=== PATIENT | female | born 1975 | race Caucasian/White ===

== ENCOUNTER 2018-05-21 12:36 | Observation (INO) | payer OTHER ==
--- NOTE | 2018-05-21 14:45 | PDOC ---
History of Present Illness - General Chief Complaint: CVA/TIA Stated Complaint: NUMBNESS WEAKNESS ON LEFT SIDE Time Seen by Provider: 05/21/18 13:14 History Source: Patient Exam Limitations: No Limitations - History of Present Illness Initial Comments: 05/21/18 14:44 42 yo female pmh of Hodgkin lymphoma (diagnosed 2008, no follow up with oncology for the past 3 years) PEs, UTIs, cervical spine herniated discs and anxiety presents to the ED for left sided numbness, weakness and dizziness that lasted less than 5 min yesterday. Patient states while sitting at her desk at work she had sudden onset of these symptoms and denies LOC, JAMES, changes in vision. Patient denies having these complaints today but does admit to mild headache. No CP, SOB or changes in bowel or bladder habits. Past History - Past Medical History Allergies/Adverse Reactions: Allergies Allergy/AdvReac Type Severity Reaction Status Date / Time No Known Allergies Allergy Verified 05/21/18 13:03 Home Medications: Ambulatory Orders NK [No Known Home Medication] 10/02/15 Anemia: No Asthma: No Cancer: Yes (LYMPHOMA STEM CELL TRANSPLANT 2010, radiation 2011) Cardiac Disorders: No CVA: No COPD: No CHF: No Dementia: No Diabetes: No GI Disorders: No Disorders: No HTN: No Hypercholesterolemia: No Kidney Stones: Yes Liver Disease: No Psychiatric Problems: Yes (ANXIETY.) Seizures: No Thyroid Disease: No - Surgical History Abdominal Surgery: Yes Appendectomy: Yes Cardiac Surgery: No Cholecystectomy: Yes Lung Surgery: No Neurologic Surgery: No Orthopedic Surgery: No - Suicide/Smoking/Psychosocial Hx Smoking Status: No Smoking History: Never smoked Have you smoked in the past 12 months: No Number of Cigarettes Smoked Daily: 0 If you are a former smoker, when did you quit?: NEW YEARS Information on smoking cessation initiated: No 'Breaking Loose' booklet given: 01/05/14 Hx Alcohol Use: No Drug/Substance Use Hx: No Substance Use Type: None Hx Substance Use Treatment: No Review of Systems - Review of Systems Constitutional: No: Chills, Fever HEENTM: No: Blurred Vision Respiratory: No: Shortness of Breath Cardiac (ROS): No: Chest Pain ABD/GI: Yes: Nausea. No: Vomiting : No: Burning, Dysuria Musculoskeletal: Yes: Muscle Weakness (left upper and lower ext) Neurological: Yes: Headache (mild), Numbness (left sided). No: Ataxia *Physical Exam - Vital Signs Last Vital Signs Temp Pulse Resp BP Pulse Ox 98.1 F 84 18 108/70 100 05/21/18 12:57 05/21/18 12:57 05/21/18 12:57 05/21/18 12:57 05/21/18 12:57 ED Treatment Course - LABORATORY CBC & Chemistry Diagram: 05/21/18 14:40 05/21/18 14:45 - ADDITIONAL ORDERS Additional order review: Laboratory Results 05/21/18 14:00 Urine HCG, Qual Negative *DC/Admit/Observation/Transfer Diagnosis at time of Disposition: TIA (transient ischemic attack) - Discharge Dispostion Condition at time of disposition: Good Decision to Admit order: Yes - Referrals - Patient Instructions - Post Discharge Activity
[2018-05-21 14:58] LABS: BASO % 0.8 % (0-2.0); EOS % 1.3 % (0-4.5); HEMOGLOBIN 13.8 GM/dL (10.7-15.3); LYMPH % 22.9 % (8-40); MCHC 33.5 g/dl (32.0-36.0); MEAN CELL VOLUME 92.4 fl (80-96); MEAN PLT VOLUME 7.2 fl (7.5-11.1); MONO % 7.7 % (3.8-10.2); NEUT % 67.3 % (42.8-82.8); PLATELET COUNT 236 K/MM3 (134-434); RBC 4.44 M/mm3 (3.60-5.2); WHITE BLOOD COUNT 6.8 K/mm3 (4.0-10.0)
[2018-05-21 15:10] LABS: PROTHROMBIN TIME (PATIENT) 11.3 SEC (9.7-13.0)
[2018-05-21 15:12] LABS: ACTIVATED PTT 29.4 SECONDS (25.2-36.5)
[2018-05-21 15:19] LABS: ALBUMIN 4.1 g/dl (3.4-5.0); ALK PHOS 100 U/L (45-117); ANION GAP 10 MMOL/L (8-16); BILIRUBIN,TOTAL 0.5 mg/dL (0.2-1.0); BLOOD UREA NITROGEN 10 mg/dL (7-18); CALCIUM 9.2 mg/dL (8.5-10.1); CHLORIDE 104 mmol/L (98-107); CO2 27 mmol/L (21-32); CREATININE 0.7 mg/dL (0.55-1.3); GLUCOSE,RANDOM 83 mg/dL (74-106); POTASSIUM 4.3 mmol/L (3.5-5.1); SGOT/AST 17 U/L (15-37); SGPT/ALT 21 U/L (13-61); SODIUM 141 mmol/L (136-145); TOT PROT 7.9 g/dl (6.4-8.2)
--- NOTE | 2018-05-21 15:26 | PDOC ---
Attending Attestation - Resident Resident Name: Terrance Bruner - ED Attending Attestation I have performed the following: I have examined & evaluated the patient, The case was reviewed & discussed with the resident, I agree w/resident's findings & plan, Exceptions are as noted - HPI HPI: 05/21/18 15:23 42 yo F with h/o lymphoma , s/p treatment with chemo few years ago,prior dvt/ pe here c/o left sided arm and leg tingling. started at work yesterday while sitting. felt nubmness, and nausea, then resolved. today feels improved. no cp no sob. no leg swelling. today feels sensation is less on left side. no f/c no urinary complaints. no headaches recently. - Physicial Exam PE: 05/21/18 15:25 awake alert lungs clear bilaterally heart rrr no mrg. abd soft nt nd. skin warm and dry. nuero alert oriented x 3. speech clear. CN II - XII intact. VF intact. strength 5/5 and symmetric all four ext. sensation decreased left arm to light touch when compared to right. finger to nose clear. articulation. 05/21/18 15:28 - Medical Decision Making 05/21/18 15:29 differential, cva, no neck pain to suggest cord lesion, electrolyte issues. no sob or cp to suggest cardiac cause. pln labs ekg ct head. 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 riaz campo. ct head results pending. Heart Score/ECG Review #1 General ECG Interpretation: Sinus Rhythm, Normal Rate (82), Normal Intervals, No acute ischemic changes Compared to previous ECG there are: Other (incomplete RBBB) NIH Stroke Scale - Initial Evaluation Level of consciousness: Alert Ask patient the month and their age: Answers both correctly Ask patient to open & close eyes; make fist and let go: Obeys both correctly Best gaze (horizontal eye movement): Normal Visual field testing: No visual field loss Facial paresis (Show teeth/raise eyebrows/close eyes tight): Normal symmetrical movement Motor Function: Left Arm: Normal Motor Function: Right Arm: Normal (extends arm 90 (or 45) degrees for 10 seconds without drift Motor Function: Left Leg: Normal (extends leg 30 degrees for 5 seconds without drift) Motor Function: Right Leg: Normal (extends leg 30 degrees for 5 seconds without drift) Limb Ataxia: No ataxia Sensory(Use pinprick test arms,legs,trunk,face/side to side): Mild to moderate decrease in sensation (left arm decreased sensation) Best language (Describe picture, name items, read sentences): No Aphasia Dysarthria (read several words): Normal articulation Extinction and Inattention: No abnormality - Total Score NIH Stroke Scale Score: 1
--- NOTE | 2018-05-21 17:11 | HP ---
CHIEF COMPLAINT: Left-sided numbness, weakness, dizziness HISTORY OF PRESENT ILLNESS: 42 year-old female with a PMH significant for Hodgkins lymphoma x 3 exacerbations since 2011, renal calculi, pulmonary emboli (off anticoagulation) , and anxiety. Patient reports she was sitting at her desk at work on 05/20 when she experienced an episode of left-sided numbness, weakness, and dizziness. It lasted for about 5 minutes and then resolved. The symptoms have not recurred. She denies LOC, changes in vision, speech, or gait. Patient waited until today to come to the ED. She reports a mild headache. ER course was notable for: (1) CT head: normal scan; no acute intracranial pathology (2) Vital signs stable Recent Travel: No PAST MEDICAL HISTORY: Hodgkins lymphoma s/p stem cell transplant (2011) Renal calculi Pulmonary emboli Anxiety PAST SURGICAL HISTORY: Bilateral breast reduction (2013) Appendectomy Cholecystectomy Social History: Smoking: former Alcohol: no Drugs: no Family History: Allergies No Known Allergies Allergy (Verified 05/21/18 13:03) HOME MEDICATIONS: Home Medications Medication Instructions Recorded NK [No Known Home Medication] 10/02/15 REVIEW OF SYSTEMS CONSTITUTIONAL: Absent: fever, chills, diaphoresis, generalized weakness, malaise, loss of appetite, weight change HEENT: Absent: rhinorrhea, nasal congestion, throat pain, throat swelling, difficulty swallowing, mouth swelling, ear pain, eye pain, visual changes CARDIOVASCULAR: Absent: chest pain, syncope, palpitations, irregular heart rate, lightheadedness , peripheral edema RESPIRATORY: Absent: cough, shortness of breath, dyspnea with exertion, orthopnea, wheezing, stridor, hemoptysis GASTROINTESTINAL: Absent: abdominal pain, abdominal distension, nausea, vomiting, diarrhea, constipation, melena, hematochezia GENITOURINARY: Absent: dysuria, frequency, urgency, hesitancy, hematuria, flank pain, genital pain MUSCULOSKELETAL: Absent: myalgia, arthralgia, joint swelling, back pain, neck pain SKIN: Absent: rash, itching, pallor HEMATOLOGIC/IMMUNOLOGIC: Absent: easy bleeding, easy bruising, lymphadenopathy, frequent infections ENDOCRINE: Absent: unexplained weight gain, unexplained weight loss, heat intolerance, cold intolerance NEUROLOGIC: +left-sided numbness, weakness, and dizziness Absent: headache, focal weakness or paresthesias, dizziness, unsteady gait, seizure, mental status changes, bladder or bowel incontinence PSYCHIATRIC: Absent: anxiety, depression, suicidal or homicidal ideation, hallucinations. PHYSICAL EXAMINATION Vital Signs - 24 hr 05/21/18 12:57 Temperature 98.1 F Pulse Rate 84 Respiratory 18 Rate Blood Pressure 108/70 O2 Sat by Pulse 100 Oximetry (%) GENERAL: Awake, alert, and fully oriented, in no acute distress. HEAD: Normal with no signs of trauma. EYES: Pupils equal, round and reactive to light, extraocular movements intact, sclera anicteric, conjunctiva clear. No lid lag. EARS, NOSE, THROAT: Ears normal, nares patent, oropharynx clear without exudates. Moist mucous membranes. NECK: Normal range of motion, supple without lymphadenopathy, JVD, or masses. LUNGS: Breath sounds equal, clear to auscultation bilaterally. No wheezes, and no crackles. No accessory muscle use. HEART: Regular rate and rhythm, normal S1 and S2 without murmur, rub or gallop. ABDOMEN: Soft, nontender, not distended, normoactive bowel sounds, no guarding, no rebound, no masses. No hepatomegaly or splenomegaly. MUSCULOSKELETAL: Normal range of motion at all joints. No bony deformities or tenderness. No CVA tenderness. UPPER EXTREMITIES: 2+ pulses, warm, well-perfused. No cyanosis. No clubbing. No peripheral edema. LOWER EXTREMITIES: 2+ pulses, warm, well-perfused. No calf tenderness. No peripheral edema. NEUROLOGICAL: Cranial nerves II-XII intact. Normal speech. Normal gait. PSYCHIATRIC: Cooperative. Good eye contact. Appropriate mood and affect. SKIN: Warm, dry, normal turgor, no rashes or lesions noted, normal capillary refill. Laboratory Results - last 24 hr 05/21/18 05/21/18 05/21/18 13:35 14:00 14:40 WBC 6.8 RBC 4.44 Hgb 13.8 Hct 41.0 MCV 92.4 MCH 31.0 MCHC 33.5 RDW 14.0 Plt Count 236 MPV 7.2 L Absolute Neuts (auto) 4.6 Neutrophils % 67.3 Lymphocytes % 22.9 Monocytes % 7.7 Eosinophils % 1.3 Basophils % 0.8 Nucleated RBC % 0 PT with INR 11.30 INR 1.00 PTT (Actin FS) 29.4 Sodium Potassium Chloride Carbon Dioxide Anion Gap BUN Creatinine Creat Clearance w eGFR Random Glucose Calcium Total Bilirubin AST ALT Alkaline Phosphatase Total Protein Albumin Urine HCG, Qual Negative 05/21/18 14:45 WBC RBC Hgb Hct MCV MCH MCHC RDW Plt Count MPV Absolute Neuts (auto) Neutrophils % Lymphocytes % Monocytes % Eosinophils % Basophils % Nucleated RBC % PT with INR INR PTT (Actin FS) Sodium 141 Potassium 4.3 Chloride 104 Carbon Dioxide 27 Anion Gap 10 BUN 10 Creatinine 0.7 Creat Clearance w eGFR > 60 Random Glucose 83 Calcium 9.2 Total Bilirubin 0.5 AST 17 ALT 21 Alkaline Phosphatase 100 Total Protein 7.9 Albumin 4.1 Urine HCG, Qual ASSESSMENT/PLAN 42 year-old female with a PMH significant for Hodgkins lymphoma, renal calculi, pulmonary emboli (off anticoagulation), and anxiety. Placed on observation for TIA v. CVA. Left-sided weakness, numbness --CT head: no acute intracranial pathology --MRI brain pending --Echo, US carotids ordered --serial ECGs --serial troponins --telemetry monitoring Hodgkins lymphoma --stable, no acute issues Renal calculi --stable h/o Pulmonary emboli --was on anticoagulation for one year Anxiety FEN Fluids: PO intake adequate Electrolytes: replete as indicated Nutrition: regular diet once passes stroke dysphagia screening DVT prophylaxis: lovenox Dispo: continues to require observation. Visit type - Emergency Visit Emergency Visit: Yes ED Registration Date: 05/21/18 Care time: The patient presented to the Emergency Department on the above date and was hospitalized for further evaluation of their emergent condition. - New Patient This patient is new to me today: Yes Date on this admission: 05/23/18 - Critical Care Critical Care patient: No Hospitalist Screening - Colonoscopy Questionnaire Colonoscopy Questionnaire: Colonoscopy Questionnaire - Patient: 50 - 75 years old and never had a screening colonoscopy: No History of colon or rectal polyps, or CA: No History of IBD, Crohn's disease or UC: No History of abdominal radiation therapy as a child: No - Relative: 1 with colon or rectal CA, or polyps at age 60 or younger: Unknown Colon or rectal CA diagnosed at age 45 or younger: Unknown Multiple relatives with colon or rectal CA: Unknown - Outcome: Screening Result: Negative Screen
[2018-05-21] MEDS ORDERED: SODIUM CHLORIDE 1,000 ML IV SCH (17:30)
[2018-05-21] MEDS ORDERED: ASPIRIN 325 MG TABLET PO ONE (17:30)
[2018-05-21] MEDS ORDERED: ATORVASTATIN CA 40 MG TABLET (FP) PO ONE (17:30)
[2018-05-21] MEDS ORDERED: diazePAM CARPU-JECT 10 MG/2 ML DISP.SYRIN IVPUSH ONE (20:25)
[2018-05-21] MEDS ORDERED: ASPIRIN 325 MG ENTERIC COATED TABLET (FP) ONE (20:43)
[2018-05-21] MEDS ORDERED: ATORVASTATIN CA 40 MG TABLET (FP) ONE (20:43)
[2018-05-21] MEDS ORDERED: diazePAM 5 MG TABLET PO ONE (20:59)
[2018-05-21] MEDS ORDERED: diazePAM 5 MG TABLET ONE (21:06)
[2018-05-21 22:41] LABS: URINE APPEARANCE CLOUDY; URINE BILIRUBIN NEGATIVE (<2.0 mg/dL); URINE COLOR LTYELLOW; URINE GLUCOSE (UA) NEGATIVE (NEGATIVE); URINE KETONE NEGATIVE (NEGATIVE); URINE LEUK ESTERASE NEGATIVE (NEGATIVE); URINE NITRITE NEGATIVE (NEGATIVE); URINE PROTEIN NEGATIVE (NEGATIVE); URINE UROBILINOGEN NEGATIVE mg/dL (0.2-1.0)
[2018-05-22 01:33] VITALS: BMI 39.3
[2018-05-22 05:40] VITALS: PULSE 89
[2018-05-22 07:22] LABS: BASO % 0.9 % (0-2.0); EOS % 2.1 % (0-4.5); HEMOGLOBIN 12.4 GM/dL (10.7-15.3); LYMPH % 22.2 % (8-40); MCH 30.8 pg (25.7-33.7); MCHC 33.4 g/dl (32.0-36.0); MEAN CELL VOLUME 92.1 fl (80-96); MEAN PLT VOLUME 7.2 fl (7.5-11.1); MONO % 8.5 % (3.8-10.2); NEUT % 66.3 % (42.8-82.8); PLATELET COUNT 204 K/MM3 (134-434); RBC 4.02 M/mm3 (3.60-5.2); RDW 13.8 % (11.6-15.6); WHITE BLOOD COUNT 5.9 K/mm3 (4.0-10.0)
[2018-05-22 08:00] LABS: CALCIUM 8.4 mg/dL (8.5-10.1); CHLORIDE 107 mmol/L (98-107); SODIUM 140 mmol/L (136-145)
[2018-05-22 08:05] LABS: ALBUMIN 3.5 g/dl (3.4-5.0); ALK PHOS 93 U/L (45-117); ANION GAP 8 MMOL/L (8-16); BILIRUBIN,TOTAL 0.3 mg/dL (0.2-1.0); BLOOD UREA NITROGEN 10 mg/dL (7-18); CHOLESTEROL 152 mg/dL (50-200); CO2 25 mmol/L (21-32); CREATININE 0.7 mg/dL (0.55-1.3); GLUCOSE,RANDOM 96 mg/dL (74-106); HDL CHOLESTEROL 82 mg/dL (40-60); SGOT/AST 18 U/L (15-37); SGPT/ALT 17 U/L (13-61); TOT PROT 6.9 g/dl (6.4-8.2); TRIGLYCERIDES 95 mg/dL (0-150)
[2018-05-22] MEDS ORDERED: ASPIRIN COATED 81 MG TABLET.EC PO SCH (10:00)
--- NOTE | 2018-05-22 10:16 | DS ---
Physical Exam: SUBJECTIVE: Patient seen and examined at bedside. No further episodes of numbness or dizziness. OBJECTIVE: Vital Signs Period Temp Pulse Resp BP Sys/Rivera Pulse Ox Last 24 Hr 98.1 F-98.2 F 84-93 18-18 94-114/58-71 98-100 PHYSICAL EXAM GENERAL: The patient is awake, alert, and fully oriented, in no acute distress. LUNGS: Breath sounds equal, clear to auscultation bilaterally, no wheezes, no crackles, no accessory muscle use. HEART: Regular rate and rhythm, S1, S2 without murmur, rub or gallop. ABDOMEN: Soft, nontender, nondistended EXTREMITIES: 2+ pulses, warm, well-perfused, no edema. NEUROLOGICAL: Cranial nerves II through XII grossly intact. Normal speech, moves all extremities freely. LABS Laboratory Results - last 24 hr 05/21/18 05/21/18 05/21/18 13:35 14:00 14:40 WBC 6.8 RBC 4.44 Hgb 13.8 Hct 41.0 MCV 92.4 MCH 31.0 MCHC 33.5 RDW 14.0 Plt Count 236 MPV 7.2 L Absolute Neuts (auto) 4.6 Neutrophils % 67.3 Lymphocytes % 22.9 Monocytes % 7.7 Eosinophils % 1.3 Basophils % 0.8 Nucleated RBC % 0 PT with INR 11.30 INR 1.00 PTT (Actin FS) 29.4 Sodium Potassium Chloride Carbon Dioxide Anion Gap BUN Creatinine Creat Clearance w eGFR Random Glucose Calcium Total Bilirubin AST ALT Alkaline Phosphatase Troponin I Total Protein Albumin Triglycerides Cholesterol Total LDL Cholesterol HDL Cholesterol Urine Color Urine Appearance Urine pH Ur Specific [place] Urine Protein Urine Glucose (UA) Urine Ketones Urine Blood Urine Nitrite Urine Bilirubin Urine Urobilinogen Ur Leukocyte Esterase Urine HCG, Qual Negative 05/21/18 05/21/18 05/21/18 14:45 20:00 22:35 WBC RBC Hgb Hct MCV MCH MCHC RDW Plt Count MPV Absolute Neuts (auto) Neutrophils % Lymphocytes % Monocytes % Eosinophils % Basophils % Nucleated RBC % PT with INR INR PTT (Actin FS) Sodium 141 Potassium 4.3 Chloride 104 Carbon Dioxide 27 Anion Gap 10 BUN 10 Creatinine 0.7 Creat Clearance w eGFR > 60 Random Glucose 83 Calcium 9.2 Total Bilirubin 0.5 AST 17 ALT 21 Alkaline Phosphatase 100 Troponin I < 0.02 Total Protein 7.9 Albumin 4.1 Triglycerides Cholesterol Total LDL Cholesterol HDL Cholesterol Urine Color Ltyellow Urine Appearance Cloudy Urine pH 8.0 D Ur Specific [place] 1.015 Urine Protein Negative Urine Glucose (UA) Negative Urine Ketones Negative Urine Blood Negative Urine Nitrite Negative Urine Bilirubin Negative Urine Urobilinogen Negative Ur Leukocyte Esterase Negative Urine HCG, Qual 05/22/18 05/22/18 05/22/18 02:07 06:00 06:00 WBC 5.9 RBC 4.02 Hgb 12.4 Hct 37.0 MCV 92.1 MCH 30.8 MCHC 33.4 RDW 13.8 Plt Count 204 MPV 7.2 L Absolute Neuts (auto) 3.9 Neutrophils % 66.3 Lymphocytes % 22.2 Monocytes % 8.5 Eosinophils % 2.1 Basophils % 0.9 Nucleated RBC % 0 PT with INR INR PTT (Actin FS) Sodium 140 Potassium 4.0 Chloride 107 Carbon Dioxide 25 Anion Gap 8 BUN 10 Creatinine 0.7 Creat Clearance w eGFR > 60 Random Glucose 96 Calcium 8.4 L Total Bilirubin 0.3 AST 18 ALT 17 Alkaline Phosphatase 93 Troponin I < 0.02 Total Protein 6.9 Albumin 3.5 Triglycerides 95 Cholesterol 152 Total LDL Cholesterol 61 HDL Cholesterol 82 H Urine Color Urine Appearance Urine pH Ur Specific [place] Urine Protein Urine Glucose (UA) Urine Ketones Urine Blood Urine Nitrite Urine Bilirubin Urine Urobilinogen Ur Leukocyte Esterase Urine HCG, Qual HOSPITAL COURSE: Date of Admission:05/21/18 Date of Discharge: 05/22/18 Pre hospital course 42 year-old female with a PMH significant for Hodgkins lymphoma x 3 exacerbations since 2011, renal calculi, pulmonary emboli (off anticoagulation) , and anxiety. Patient reports she was sitting at her desk at work on 05/20 when she experienced an episode of left-sided numbness, weakness, and dizziness. It lasted for about 5 minutes and then resolved. The symptoms have not recurred. She denies LOC, changes in vision, speech, or gait. Patient waited until today to come to the ED. She reports a mild headache. ER course was notable for: (1) CT head: normal scan; no acute intracranial pathology (2) Vital signs stable Subsequent hospital course 42 year-old female with a PMH significant for Hodgkins lymphoma, renal calculi, pulmonary emboli (off anticoagulation), and anxiety. Placed on observation for TIA v. CVA. Left-sided weakness, numbness, resolved --CT head: no acute intracranial pathology --MRI brain: negative study --US carotids: unremarkable --serial ECGs: no signs of ischemia --serial troponins negative --telemetry monitoring no events --seen and evaluated by neuro: underlying anxiety may have been precipitant for symptoms Hodgkins lymphoma --stable, no acute issues Renal calculi --stable h/o Pulmonary emboli --was on anticoagulation for one year Minutes to complete discharge: 35 Discharge Summary Reason For Visit: TIA Current Active Problems TIA (transient ischemic attack) (Acute) Condition: Improved - Instructions Diet, Activity, Other Instructions: It is recommended you follow up with your primary care provider at [address] [place] [address]. If you would like to have the sebaceous cysts on your scalp evaluated, please call the office of surgeon Dr. Matt Salcedo. His contact information is enclosed. Return to the emergency department for any new or worsening symptoms. Referrals: Matt Salcedo MD [Staff Physician] - 2 Weeks Disposition: HOME - Home Medications Comprehensive Discharge Medication List: Ambulatory Orders NK [No Known Home Medication] 10/02/15 This patient is new to me today: No Emergency Visit: Yes ED Registration Date: 05/21/18 Care time: The patient presented to the Emergency Department on the above date and was hospitalized for further evaluation of their emergent condition. Critical Care patient: No - Discharge Referral Referred to [facility] Med [facility] No
[2018-05-22 10:42] VITALS: BP 111/75; TEMP 98.1
--- NOTE | 2018-05-22 11:38 | CONSULT ---
Consult - text type - Consultation Consultation Note: Neurology CHIEF COMPLAINT: Left-sided numbness, weakness, dizziness HISTORY OF PRESENT ILLNESS: 42 year-old female with a PMH significant for Hodgkins lymphoma s/p stem cell transplant (2011), renal calculi, pulmonary emboli (not on anticoagulation), and anxiety. Patient reported she was sitting at her desk at work on day prior to admission, 05/20, when she experienced an episode of left-sided numbness, weakness, and dizziness. It lasted for about 5 minutes. The symptoms did not recurred. She denied LOC, changes in vision, speech, or gait. Patient reported a mild headache which she is no longer experiencing. CT head was normal with no acute intracranial pathology. Recent Travel: No PAST MEDICAL HISTORY: Hodgkins lymphoma s/p stem cell transplant (2011) Renal calculi Pulmonary emboli Anxiety PAST SURGICAL HISTORY: Bilateral breast reduction (2013) Appendectomy Cholecystectomy Social History: Smoking: former Alcohol: no Drugs: no Family History: Allergies No Known Allergies Allergy (Verified 05/21/18 13:03) HOME MEDICATIONS: Home Medications Medication Instructions Recorded NK [No Known Home Medication] 10/02/15 REVIEW OF SYSTEMS CONSTITUTIONAL: Absent: fever, chills, diaphoresis, generalized weakness, malaise, loss of appetite, weight change HEENT: Absent: rhinorrhea, nasal congestion, throat pain, throat swelling, difficulty swallowing, mouth swelling, ear pain, eye pain, visual changes CARDIOVASCULAR: Absent: chest pain, syncope, palpitations, irregular heart rate, lightheadedness , peripheral edema RESPIRATORY: Absent: cough, shortness of breath, dyspnea with exertion, orthopnea, wheezing, stridor, hemoptysis GASTROINTESTINAL: Absent: abdominal pain, abdominal distension, nausea, vomiting, diarrhea, constipation, melena, hematochezia GENITOURINARY: Absent: dysuria, frequency, urgency, hesitancy, hematuria, flank pain, genital pain MUSCULOSKELETAL: Absent: myalgia, arthralgia, joint swelling, back pain, neck pain SKIN: Absent: rash, itching, pallor HEMATOLOGIC/IMMUNOLOGIC: Absent: easy bleeding, easy bruising, lymphadenopathy, frequent infections ENDOCRINE: Absent: unexplained weight gain, unexplained weight loss, heat intolerance, cold intolerance NEUROLOGIC: +left-sided numbness, weakness, and dizziness Absent: headache, focal weakness or paresthesias, dizziness, unsteady gait, seizure, mental status changes, bladder or bowel incontinence PSYCHIATRIC: Absent: anxiety, depression, suicidal or homicidal ideation, hallucinations. PHYSICAL EXAMINATION Vital Signs Period Temp Pulse Resp BP Sys/Rivera Pulse Ox Last 24 Hr 98.1 F-98.2 F 84-93 18-18 94-114/58-75 98-100 GENERAL: Awake, alert, and fully oriented, in no acute distress. HEAD: Normal with no signs of trauma. EYES: Pupils equal, round and reactive to light, extraocular movements intact, sclera anicteric, conjunctiva clear. No lid lag. EARS, NOSE, THROAT: Ears normal, nares patent, oropharynx clear without exudates. Moist mucous membranes. NECK: Normal range of motion, supple without lymphadenopathy, JVD, or masses. LUNGS: Breath sounds equal, clear to auscultation bilaterally. No wheezes, and no crackles. No accessory muscle use. HEART: Regular rate and rhythm, normal S1 and S2 without murmur, rub or gallop. ABDOMEN: Soft, nontender, not distended, normoactive bowel sounds, no guarding, no rebound, no masses. No hepatomegaly or splenomegaly. MUSCULOSKELETAL: Normal range of motion at all joints. No bony deformities or tenderness. No CVA tenderness. UPPER EXTREMITIES: 2+ pulses, warm, well-perfused. No cyanosis. No clubbing. No peripheral edema. LOWER EXTREMITIES: 2+ pulses, warm, well-perfused. No calf tenderness. No peripheral edema. NEUROLOGICAL: Cranial nerves II-XII intact. Strength intact bilaterally, sensory intact to LT, normal coordination, finger to nose intact PSYCHIATRIC: Cooperative. Good eye contact. Appropriate mood and affect. SKIN: Warm, dry, normal turgor, no rashes or lesions noted, normal capillary refill. LABS: 05/21/18 05/21/18 05/21/18 13:35 14:40 14:45 WBC 6.8 RBC 4.44 Hgb 13.8 Hct 41.0 MCV 92.4 MCHC 33.5 RDW 14.0 Plt Count 236 Neutrophils % 67.3 Lymphocytes % 22.9 Monocytes % 7.7 Eosinophils % 1.3 Basophils % 0.8 INR 1.00 Sodium 141 Potassium 4.3 Chloride 104 Carbon Dioxide 27 Anion Gap 10 BUN 10 Creatinine 0.7 05/22/18 05/22/18 06:00 06:00 WBC 5.9 RBC 4.02 Hgb 12.4 Hct 37.0 MCV 92.1 MCHC 33.4 RDW 13.8 Plt Count 204 Neutrophils % 66.3 Lymphocytes % 22.2 Monocytes % 8.5 Eosinophils % 2.1 Basophils % 0.9 INR Sodium 140 Potassium 4.0 Chloride 107 Carbon Dioxide 25 Anion Gap 8 BUN 10 Creatinine 0.7 Imaging: CT head reviewed Carotid Doppler reviewed MRI brain completed, reviewed, awaiting report ASSESSMENT/PLAN 42 year-old female with a PMH significant for Hodgkins lymphoma s/p stem cell transplant (2011), renal calculi, pulmonary emboli (not on anticoagulation), and anxiety. Patient reported she was sitting at her desk at work on day prior to admission, 05/20, when she experienced an episode of left-sided numbness, weakness, and dizziness. It lasted for about 5 minutes. The symptoms did not recurred. She denied LOC, changes in vision, speech, or gait. Patient reported a mild headache which she is no longer experiencing. CT head was normal with no acute intracranial pathology. Carotid Doppler without HD significant stenosis. MRI brain completed, reviewed, awaiting official report. Asymptomatic, if imaging negative, can have outpatient followup. Does have underlying anxiety which may be precipitant for her symptoms. Relaxation recommended.
[2018-05-22] MEDS ORDERED: ATORVASTATIN CA 40 MG TABLET (FP) PO SCH (22:00)
--- NOTE | 2018-05-23 21:58 | EKG ---
Test Reason : Blood Pressure : / mmHG Vent. Rate : 082 BPM Atrial Rate : 082 BPM P-R Int : 136 ms QRS Dur : 102 ms QT Int : 390 ms P-R-T Axes : 049 001 038 degrees QTc Int : 455 ms NORMAL SINUS RHYTHM POSSIBLE LEFT ATRIAL ENLARGEMENT INCOMPLETE RIGHT BUNDLE BRANCH BLOCK BORDERLINE ECG WHEN COMPARED WITH ECG OF 02-OCT-2015 11:15, INCOMPLETE RIGHT BUNDLE BRANCH BLOCK IS NOW PRESENT Confirmed by MORRIS FITCH MD ([id number]) on 05/23/2018 9:57:24 PM Referred By: Confirmed By:MORRIS FITCH MD
== END 2018-05-22 14:20 | disposition home or self-care (01) ==
LOC: JER 12:36 → JERBED 16:12 → J4S 05-22 00:40
PROVIDERS: ADMIT Internal Medicine; ATTEND Nurse Practitioner Acute Care
DX: G45.9 Transient cerebral ischemic attack, unspecified (principal); C81.90 Hodgkin lymphoma, unspecified, unspecified site; F41.9 Anxiety disorder, unspecified; M50.20 Other cervical disc displacement, unspecified cervical region; Z87.442 Personal history of urinary calculi; Z86.711 Personal history of pulmonary embolism
CPT/HCPCS: 36415; 70450-TC; 70551-TC; 80053; 80061; 81003; 83721; 84484; 84703; 85025; 85610; 85730; 93005; 93010; 93880-TC; 99284-25; G0378

== ENCOUNTER 2019-12-19 12:47 | Inpatient (IN) | payer OTHER ==
--- NOTE | 2019-12-19 13:06 | PDOC ---
History of Present Illness - History of Present Illness Initial Comments: HPI: 12/19/19 13:41 44 yo F PMH Hodgkins' lymphoma X3 s/p radiation and stem cell transplant in 2012, not on active treatment, appendectomy, cholecystectomy, anxiety, presenting with SOB. States that she has felt ill for the past 10 days with myalgias and malaise, but over the past 5 days, she has had progressively wo rsening SOB and SONG, associated with cough, loss of appetite, and fevers/chills. 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 Sister is a known COVID positive. Initially satting 68% on RA, now up to 97% on 15L NRB with proning. Denies CP, abd pain, N/V, urinary changes, constipation/diarrhea. ROS: GENERAL/CONSTITUTIONAL: denies fever, chills, diaphoresis, generalized weakness, malaise, loss of appetite, weight change HEAD, EYES, EARS, NOSE AND THROAT: denies rhinorrhea, nasal congestion, throat pain, throat swelling, difficulty swallowing, mouth swelling, ear pain, eye pain, visual changes NEUROLOGIC: denies headache, focal weakness or paresthesias, dizziness, unsteady gait, seizure, mental status changes, bladder or bowel incontinence CARDIOVASCULAR: denies chest pain, syncope, palpitations, irregular heart rate, lightheadedness, peripheral edema RESPIRATORY: denies cough, shortness of breath, dyspnea with exertion, orthopnea, wheezing, stridor, hemoptysis GASTROINTESTINAL: denies abdominal pain, abdominal distension, nausea, vomiting, diarrhea, constipation, melena, hematochezia GENITOURINARY: denies dysuria, frequency, urgency, hesitancy, hematuria, flank pain, genital pain MUSCULOSKELETAL: denies myalgia, arthralgia, joint swelling, back pain, neck pain SKIN: denies rash, itching, pallor HEMATOLOGIC/IMMUNOLOGIC: denies easy bleeding, easy bruising, lymphadenopathy, frequent infections ENDOCRINE: denies unexplained weight gain, unexplained weight loss, heat intolerance, cold intolerance PSYCHIATRIC: denies anxiety, depression, suicidal or homicidal ideation, hallucinations PE: Gen: well-developed, well-nourished, appears in distress Neuro: AAOX4, CN II-XII grossly intact HEENT: atraumatic, normocephalic, dry mucous membranes Neck: trachea midline, supple CV: regular rate, regular rhythm, no murmurs, rubs, or gallops Pulm: tachypneic to 40 breaths per minute, poor inspiratory effort, otherwise CTA b/l, no wheezing Abd: soft, non-distended, non-tender MSK: full ROM, intact pulses Extr: no edema, no deformities Skin: hot, dry MDM: 12/19/19 13:50 Concern for COVID-19 v PNA v potential cancer resurgence. Patient febrile to 102F orally. - COVID order set - CBC, CMP - EKG, CXR - cardiac profile - PT/PTT - UA/UC - 500 cc NS bolus - Ofirmev - admit 12/19/19 14:23 Lactic acid 2.2, pH 7.44, LFT elevation, LDH 725. CXR with bilateral patchy infiltrates concerning for COVID-19. 12/19/19 14:41 POCUS of heart shows good squeeze, appears to be fluid down. Patient with increased work of breathing, RR occasionally in the 60s. Will get high flow O2. Patient also has worsening blood pressure with MAPs around 63, will give another 500 cc bolus. Consider central line. EKG with sinus tachycardia t 126 bpm, LVH, ND 120, QRS 88, QTc 457. Will admit for suspected COVID-19, hypoxia. 12/19/19 17:30 With soft BPs, central line placed for potential pressor support. Risks and benefits explained to the patient, and she provided oral consent. RIJ extremely collapsible, so ultimately placed in LIJ. X ray confirms good placement of the central line. 12/19/19 18:48 Patient seen to have continually decreasing MAPs to 58, so Levophed drip started. Patient admitted to ICU. Please note, this patient was evaluated during the COVID-19 crisis with the presidential Reyes Act Declaration and the [place] governor executive order number 202. Clinical decisions were made relative to healthcare system resources as well as clinical picture during a pandemic crisis situation. <Rustam Ocasio - Last Filed: 12/21/19 20:14> <Jessica Reno - Last Filed: 12/24/19 14:33> - General Stated Complaint: SOB/COUGH Time Seen by Provider: 12/19/19 12:51 Past History - Past Medical History Anemia: No Asthma: No Cancer: Yes (LYMPHOMA STEM CELL TRANSPLANT 2010, radiation 2011) Cardiac Disorders: No CVA: No COPD: No CHF: No Dementia: No Diabetes: No GI Disorders: No Disorders: No HTN: No Hypercholesterolemia: No Kidney Stones: Yes Liver Disease: No Psychiatric Problems: Yes (ANXIETY.) Seizures: No Thyroid Disease: No - Surgical History Abdominal Surgery: Yes Appendectomy: Yes Cardiac Surgery: No Cholecystectomy: Yes Lung Surgery: No Neurologic Surgery: No Orthopedic Surgery: No - Psycho Social/Smoking Cessation Hx Smoking Status: No Smoking History: Never smoked Have you smoked in the past 12 months: No Number of Cigarettes Smoked Daily: 0 If you are a former smoker, when did you quit?: NEW YEARS Cigars Per Day: 0 'Breaking Loose' booklet given: 01/05/14 Hx Alcohol Use: No Drug/Substance Use Hx: No Substance Use Type: None Hx Substance Use Treatment: No <Rustam Ocasio - Last Filed: 12/21/19 20:14> <Jessica Reno - Last Filed: 12/24/19 14:33> - Past Medical History Allergies/Adverse Reactions: Allergies Allergy/AdvReac Type Severity Reaction Status Date / Time No Known Allergies Allergy Verified 05/21/18 13:03 Home Medications: Ambulatory Orders NK [No Known Home Medication] 10/02/15 *Physical Exam - Vital Signs Last Vital Signs Temp Pulse Resp BP Pulse Ox 97.7 F 109 H 40 H 141/97 90 L 12/24/19 10:00 12/24/19 12:00 12/24/19 12:00 12/24/19 12:00 12/24/19 12:42 <Jessica Reno - Last Filed: 12/24/19 14:33> Procedures - Central Line Central Line Lumen: triple Central Line Position: internal jugular (L) Anesthesia: 1% Lidocaine Amount of anesthesia (ccs): 5 Post Central Line Insertion: sutured, good blood return, position confirmed w/ CXR Progress: 12/19/19 17:30 Pressures began decreasing with MAPs in the low 60s, so central line place. RIJ seen to be flat and collapsible, so LIJ triple lumen ultimately placed. Good flow in all lumens, and position will be confirmed with X ray. <Rustam Ocasio - Last Filed: 12/21/19 20:14> ED Treatment Course - LABORATORY CBC & Chemistry Diagram: 12/21/19 06:36 12/21/19 06:36 <Rustam Ocasio - Last Filed: 12/21/19 20:14> - LABORATORY CBC & Chemistry Diagram: 12/24/19 05:30 12/24/19 05:30 - ADDITIONAL ORDERS Additional order review: 12/19/19 13:13 RBC 4.06 MCV 88.8 MCHC 33.7 RDW 14.0 MPV 7.1 L Neutrophils % 87.2 H D Lymphocytes % 5.4 L D Monocytes % 7.2 Eosinophils % 0.1 D Basophils % 0.1 - Medications Given in the ED: ED Medications Discontinued Medications Generic Name Dose Route Start Last Admin Trade Name Jesse PRN Reason Stop Dose Admin Acetaminophen 1,000 mg 12/19/19 13:07 12/19/19 13:35 Ofirmev Injection - IVPB 12/19/19 13:08 1,000 mg ONCE ONE Administration Acetaminophen 975 mg 12/20/19 01:40 12/20/19 01:42 Tylenol Oral Solution - PO 12/20/19 01:41 975 mg ONCE STA Administration Alprazolam 0.25 mg 12/22/19 15:00 12/23/19 19:55 Xanax - PO 12/22/19 15:01 Not Given ONCE ONE Hydroxychloroquine Sulfate 400 mg 12/19/19 17:30 12/19/19 18:00 Plaquenil - PO 12/19/19 17:31 400 mg ONCE ONE Administration Hydroxychloroquine Sulfate 400 mg 12/19/19 18:00 12/20/19 19:26 Plaquenil - PO 12/19/19 18:01 Not Given BID@0600,1800 DARIEL Sodium Chloride 500 mls @ 500 mls/hr 12/19/19 13:47 12/19/19 14:16 Normal Saline - IV 12/19/19 14:46 Not Given ASDIR STA Doxycycline Hyclate 100 mg/ 100 mls @ 100 mls/hr 12/19/19 14:45 12/19/19 15:50 Dextrose IVPB 12/19/19 15:44 100 mls/hr ONCE ONE Administration Sodium Chloride 1,000 mls @ 100 mls/hr 12/19/19 17:15 04/13/20 17:52 Normal Saline - IV 100 mls/hr ASDIR DARIEL Administration Sodium Chloride 1,000 mls @ 42 mls/hr 12/19/19 18:37 12/19/19 18:58 Normal Saline - IV 42 mls/hr ASDIR DARIEL Administration Norepinephrine Bitartrate 16, 500 mls @ 9.375 mls/hr 12/19/19 19:00 12/21/19 02:00 000 mcg/ Sodium Chloride IV 0 mcg/min TITR DARIEL 0 mls/hr Titration Protocol 5 MCG/MIN Vancomycin HCl 1,000 mg/ 250 mls @ 166.667 mls/hr 12/20/19 15:00 12/22/19 03:07 Dextrose IVPB 166.667 mls/hr Q12H DARIEL Administration Protocol Methylprednisolone Sodium Succinate 125 mg 12/21/19 13:02 12/21/19 14:42 Solu-Medrol - IVPUSH 12/21/19 13:03 125 mg ONCE ONE Administration Morphine Sulfate 1 mg 12/20/19 12:39 12/21/19 00:26 Morphine Injection - IM 1 mg Q6H PRN Administration PAIN LEVEL 1-5 Potassium Chloride 40 meq 12/21/19 13:41 12/21/19 14:43 K-Dur - PO 12/21/19 13:42 40 meq ONCE ONE Administration Potassium Chloride 40 meq 12/22/19 08:30 12/23/19 19:54 K-Dur - PO 12/22/19 08:31 Not Given ONCE ONE Sodium Chloride 500 ml 12/19/19 14:14 12/19/19 14:15 Normal Saline - IV 12/19/19 14:15 500 ml ONCE ONE Administration <Jessica Reno - Last Filed: 12/24/19 14:33> Discharge - Discharge Information Problems reviewed: Yes <Rustam Ocasio - Last Filed: 12/21/19 20:14> <Jessica Reno - Last Filed: 12/24/19 14:33> - Discharge Information Clinical Impression/Diagnosis: Acute respiratory failure with hypoxia Condition: Fair
[2019-12-19] MEDS ORDERED: ACETAMINOPHEN 1000 MG/100 ML VIAL (NON FORMULARY) IVPB ONE (13:07)
[2019-12-19 13:28] LABS: BASO % 0.1 % (0-2.0); EOS % 0.1 % (0-4.5); HEMOGLOBIN 12.1 GM/dL (10.7-15.3); LYMPH % 5.4 % (8-40); MCH 29.9 pg (25.7-33.7); MCHC 33.7 g/dl (32.0-36.0); MEAN CELL VOLUME 88.8 fl (80-96); MEAN PLT VOLUME 7.1 fl (7.5-11.1); MONO % 7.2 % (3.8-10.2); NEUT % 87.2 % (42.8-82.8); PLATELET COUNT 243 K/MM3 (134-434); RBC 4.06 M/mm3 (3.60-5.2); WHITE BLOOD COUNT 8.2 K/mm3 (4.0-10.0)
[2019-12-19 13:34] LABS: INR 1.25 (0.83-1.09); PROTHROMBIN TIME (PATIENT) 14.8 SEC (9.7-13.0)
[2019-12-19] MEDS ORDERED: ACETAMINOPHEN INJECTION 100 ML IVPB ONE (13:34)
[2019-12-19 13:37] LABS: ACTIVATED PTT 28.8 SECONDS (25.2-36.5)
[2019-12-19 13:38] LABS: VENOUS BASE EXCESS 2.8 mmol/L (-2-2); VENOUS PC02 40.2 mmHg (38-52); VENOUS PH 7.44 (7.31-7.41)
[2019-12-19 13:40] LABS: VENOUS PO2 < 49 mmHg (28-48)
[2019-12-19] MEDS ORDERED: SODIUM CHLORIDE 500 ML IV STA (13:47)
[2019-12-19 13:54] LABS: LDH 725 U/L (84-246)
[2019-12-19 14:00] LABS: ALBUMIN 2.9 g/dl (3.4-5.0); ALK PHOS 195 U/L (45-117); ANION GAP 9 MMOL/L (8-16); BILIRUBIN,DIRECT 0.3 mg/dL (0.0-0.2); BILIRUBIN,TOTAL 0.9 mg/dL (0.2-1); BLOOD UREA NITROGEN 7.2 mg/dL (7-18); CALCIUM 8.4 mg/dL (8.5-10.1); CHLORIDE 99 mmol/L (98-107); CO2 23 mmol/L (21-32); CREATININE 0.9 mg/dL (0.55-1.3); GLUCOSE,RANDOM 127 mg/dL (74-106); POTASSIUM 4.6 mmol/L (3.5-5.1); SGOT/AST 144 U/L (15-37); SGPT/ALT 123 U/L (13-61); SODIUM 131 mmol/L (136-145); TOT PROT 7.5 g/dl (6.4-8.2)
[2019-12-19] MEDS ORDERED: SODIUM CHLORIDE 0.9% 500 ML INFUS.BAG IV ONE (14:14)
--- NOTE | 2019-12-19 14:27 | PDOC ---
Documentation entered by Yony Sierra SCRIBE, acting as scribe for Jessica Reno MD. Jessica Reno MD: This documentation has been prepared by the Rigo abarca Daniel, SCRIBE, under my direction and personally reviewed by me in its entirety. I confirm that the documentation accurately reflects all work, treatment, procedures, and medical decision making performed by me. Attending Attestation - Resident Resident Name: Rustam Ocasio - ED Attending Attestation I have performed the following: I have examined & evaluated the patient, The case was reviewed & discussed with the resident, I agree w/resident's findings & plan, Exceptions are as noted - HPI HPI: 12/19/19 13:40 The patient is a 44 year old female with a past medical history of lymphoma in remission, ( 8 yr) here today for evaluation of shortness of breath and myalgias. The patient reports that she has had 5 days of worsening shortness of breath and 10 days of myalgias. Patient denies headache, lightheadedness. Denies fever, chills. Denies chest pain. Denies nausea, vomiting, diarrhea, abdominal pain. surg hx: cholecystomy, appendectomy Allergies: NKA PCP: Yony Lozoya 12/19/19 14:22 - Physicial Exam PE: 12/19/19 14:22 awake alert lungs crackles at bases, tachypneic. increased work of breathing. heart reg tachycardia no mrg abd soft nt nd ext wwp. no edema. no calf tenderness. nuero alert oriented x 3. - Medical Decision Making 12/19/19 14:23 44 yo h/o NHL in remission for 8 yrs here with 10 days viral uri illness, with worsening sob over the last 5 days. today became acutely worse over last 24 hours is havin fevers. not eating and drinking over last week. no n/v/d. no other complaints. on exam pt with pulse ox 68% on RA, and now 97% on NRB, 15L. plan r/o pneumonia, likley covid. abx. ekg. labs covid xray with covid like infiltrates. pt to be placed on highflow oxygen, high risk covid. focused ED TTE, overall preserved contractility. no rv dilation or strain. no pericardial effusion. ivc very collapsable. impression: preseved contractility, no effusion, ivc collapsable. plan small fluid bolus as pt bp low, collapsin ivc. given 500 NS bolus. 12/19/19 16:00 pt with persistantly low hypotension. given 1 L ns bolus initially due to ccollapsing IVC. still hypotensive. avoiding high fluid bolus due to concerns for ards. plan central line placed for pressor support as neded. pt on high flow oxygen, saturation and work of breathing improved. saturating 97%. admitted . Heart Score/ECG Review #1 General ECG Interpretation: Normal Intervals, No acute ischemic changes Compared to previous ECG there are: Other (sinus tachycardia 125 bpm.) Discharge - Discharge Information Problems reviewed: Yes Clinical Impression/Diagnosis: Acute respiratory failure with hypoxia Condition: Fair - Follow up/Referral - Patient Discharge Instructions - Post Discharge Activity
[2019-12-19] MEDS ORDERED: DOXYCYCLINE INJECTION 100 MG in DEXTROSE 5%-WATER - 100 ML IVPB ONE (14:45)
[2019-12-19] MEDS ORDERED: DOXYCYCLINE HYCLATE 100 MG VIAL ONE (15:50)
[2019-12-19] MEDS ORDERED: SODIUM CHLORIDE 1,000 ML IV SCH ×2 (17:15→18:37)
[2019-12-19] MEDS ORDERED: ALBUTEROL SO4 HFA INHALER IH PRN (17:15)
--- NOTE | 2019-12-19 17:16 | HP ---
CHIEF COMPLAINT:Shortness of breath fever and myalgias PCP:She does not have HISTORY OF PRESENT ILLNESS: The patient is a 44 year old female with a past medical history of lymphoma in remission, ( 8 yr) here today for evaluation of shortness of breath and myalgias. The patient reports that she has had 5 days of worsening shortness of breath and 10 days of myalgias. Patient denies headache, lightheadedness. Denies fever, chills. Denies chest pain. Denies nausea, vomiting, diarrhea, abdominal pain. 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 In the ER she found to be hypo-tensive and hypoxemic given high flow of oxygen and IV fluids her pressure is stabilizing now she is alert and awake ER course was notable for:Very severe hypoxemia shortness of breath and myalgias (1) (2) (3) Recent Travel:None PAST MEDICAL HISTORY:Lymphoma PAST SURGICAL HISTORY:Cholecystectomy and appendectomy Social History:No smoking alcohol or drug use Smoking: Alcohol: Drugs: Allergies No Known Allergies Allergy (Verified 05/21/18 13:03) HOME MEDICATIONS: Home Medications Medication Instructions Recorded NK [No Known Home Medication] 10/02/15 REVIEW OF SYSTEMS General she has a fever body aches Respiratory complaining of shortness of breath GI no nausea vomiting locomotor complaint of body aches endocrine no history of diabetes oncology history of lymphoma but in remission rest of review of systems are negative. PHYSICAL EXAMINATION Vital Signs - 24 hr 12/19/19 12/19/19 12/19/19 13:07 13:15 13:18 Temperature 102.5 F H 100.4 F H Pulse Rate 135 H Pulse Rate [ Left Radial] Respiratory 48 H Rate Blood Pressure 86/67 L Blood Pressure [Right Arm] O2 Sat by Pulse 68 L 93 L Oximetry (%) 12/19/19 12/19/19 12/19/19 14:13 14:22 14:45 Temperature 100.7 F H Pulse Rate Pulse Rate [ 124 H 124 H 117 H Left Radial] Respiratory 50 H 42 H 40 H Rate Blood Pressure Blood Pressure 84/60 L 90/60 96/47 L [Right Arm] O2 Sat by Pulse 96 96 95 Oximetry (%) 12/19/19 17:09 Temperature Pulse Rate Pulse Rate [ 111 H Left Radial] Respiratory 34 H Rate Blood Pressure Blood Pressure 117/64 [Right Arm] O2 Sat by Pulse 100 Oximetry (%) Patient is comfortable On high flow oxygen HEENT normal Neck supple no JVD Lungs Bilateral coarse breath sounds Abdomen nontender no organomegaly bowel sounds normal Extremities no edema no cyanosis normal pulses Neurologically he is alert awake oriented, nonfocal Skin no rash noted Laboratory Results - last 24 hr 12/19/19 12/19/19 12/19/19 13:13 13:13 13:13 WBC 8.2 RBC 4.06 Hgb 12.1 Hct 36.0 MCV 88.8 MCH 29.9 MCHC 33.7 RDW 14.0 Plt Count 243 MPV 7.1 L Absolute Neuts (auto) 7.1 Neutrophils % 87.2 H D Lymphocytes % 5.4 L D Monocytes % 7.2 Eosinophils % 0.1 D Basophils % 0.1 Nucleated RBC % 0 PT with INR 14.80 H INR 1.25 H PTT (Actin FS) 28.8 VBG pH POC VBG pCO2 POC VBG pO2 VBG HCO3 VBG O2 Sat (Toñito) VBG Base Excess Sodium Potassium Chloride Carbon Dioxide Anion Gap BUN Creatinine Est GFR (CKD-EPI)AfAm Est GFR (CKD-EPI)NonAf Random Glucose Lactic Acid Calcium Total Bilirubin Direct Bilirubin AST ALT Alkaline Phosphatase LD Total Creatine Kinase Troponin I Total Protein Albumin Serum , Qual Negative 12/19/19 12/19/19 12/19/19 13:13 13:13 13:25 WBC RBC Hgb Hct MCV MCH MCHC RDW Plt Count MPV Absolute Neuts (auto) Neutrophils % Lymphocytes % Monocytes % Eosinophils % Basophils % Nucleated RBC % PT with INR INR PTT (Actin FS) VBG pH 7.44 H POC VBG pCO2 40.2 POC VBG pO2 < 49 H VBG HCO3 26.7 VBG O2 Sat (Toñito) 59.1 L VBG Base Excess 2.8 H Sodium 131 L Potassium 4.6 Chloride 99 Carbon Dioxide 23 Anion Gap 9 BUN 7.2 Creatinine 0.9 Est GFR (CKD-EPI)AfAm 91.40 Est GFR (CKD-EPI)NonAf 78.86 Random Glucose 127 H Lactic Acid 2.2 H* Calcium 8.4 L Total Bilirubin 0.9 Direct Bilirubin 0.3 H AST 144 H ALT 123 H Alkaline Phosphatase 195 H LD Total 725 H Creatine Kinase 128 Troponin I < 0.02 Total Protein 7.5 Albumin 2.9 L Serum , Qual ASSESSMENT/PLAN: 44 yo h/o NHL in remission for 8 yrs here with 10 days viral uri illness, with w orsening sob over the last 5 days. today became acutely worse over last 24 hours is havin fevers. not eating and drinking over last week. She received 1 dose of doxycycline in the ER We will start her on IV fluids at 100 cc an hour High flow oxygen and start hydroxychloroquine. Repeat labs in the morning DVT prophylaxis. 6:30 PM her blood pressure is stable now will lower the fluid to 42 cc an hour. Visit type - Emergency Visit Emergency Visit: Yes ED Registration Date: 12/19/19 Care time: The patient presented to the Emergency Department on the above date and was hospitalized for further evaluation of their emergent condition. - New Patient This patient is new to me today: Yes Date on this admission: 12/19/19 - Critical Care Critical Care patient: No
[2019-12-19] MEDS ORDERED: HYDROXYCHLOROQUINE SO4 200 MG TABLET (FP) PO ONE (17:30)
[2019-12-19] MEDS ORDERED: HYDROXYCHLOROQUINE SO4 200 MG TABLET (FP) PO SCH (18:00)
--- NOTE | 2019-12-19 19:46 | CONSULT ---
Consultation: REQUESTING PROVIDER: emergency room CONSULT REQUEST: We have been asked to medically evaluate this patient for Acute hypoxic respiratory failure HISTORY OF PRESENT ILLNESS: This is a 44 year old female with a history of Hodgkins lymphoma s/p radiation and stem cell transplant in 2011, severe obesity who came to the hospital for shortness of breath. Has sick contact (sister who is COVID +). Had ~10 days of flu-like symptoms, with 5 days of worsening SOB, cough, and fevers. 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 Patient initially presented 68% on RA per ED, which improved to 15L on NRB. ICU called due to patient having increased work of breathing on high-flow O2 and prone positioning pending possible intubation. PHYSICAL EXAMINATION Vital Signs - 24 hr 12/19/19 12/19/19 12/19/19 13:07 13:15 13:18 Temperature 102.5 F H 100.4 F H Pulse Rate 135 H Pulse Rate [ Left Radial] Respiratory 48 H Rate Blood Pressure 86/67 L Blood Pressure [Right Arm] O2 Sat by Pulse 68 L 93 L Oximetry (%) 12/19/19 12/19/19 12/19/19 14:13 14:22 14:45 Temperature 100.7 F H Pulse Rate Pulse Rate [ 124 H 124 H 117 H Left Radial] Respiratory 50 H 42 H 40 H Rate Blood Pressure Blood Pressure 84/60 L 90/60 96/47 L [Right Arm] O2 Sat by Pulse 96 96 95 Oximetry (%) 12/19/19 12/19/19 17:09 18:00 Temperature 99.8 F H Pulse Rate Pulse Rate [ 111 H 111 H Left Radial] Respiratory 34 H 42 H Rate Blood Pressure Blood Pressure 117/64 112/66 [Right Arm] O2 Sat by Pulse 100 100 Oximetry (%) GENERAL: A&Ox3, no acute distress LUNGS: crackles at bases HEART: tachycardic ABDOMEN: obese abdomen NEUROLOGICAL: Cranial nerves II-XII intact. Laboratory Results - last 24 hr 12/19/19 12/19/19 12/19/19 13:13 13:13 13:13 WBC 8.2 RBC 4.06 Hgb 12.1 Hct 36.0 MCV 88.8 MCH 29.9 MCHC 33.7 RDW 14.0 Plt Count 243 MPV 7.1 L Absolute Neuts (auto) 7.1 Neutrophils % 87.2 H D Lymphocytes % 5.4 L D Monocytes % 7.2 Eosinophils % 0.1 D Basophils % 0.1 Nucleated RBC % 0 PT with INR 14.80 H INR 1.25 H PTT (Actin FS) 28.8 VBG pH POC VBG pCO2 POC VBG pO2 VBG HCO3 VBG O2 Sat (Toñito) VBG Base Excess Sodium Potassium Chloride Carbon Dioxide Anion Gap BUN Creatinine Est GFR (CKD-EPI)AfAm Est GFR (CKD-EPI)NonAf Random Glucose Lactic Acid Calcium Total Bilirubin Direct Bilirubin AST ALT Alkaline Phosphatase LD Total Creatine Kinase Troponin I Total Protein Albumin Serum , Qual Negative 12/19/19 12/19/19 12/19/19 13:13 13:13 13:25 WBC RBC Hgb Hct MCV MCH MCHC RDW Plt Count MPV Absolute Neuts (auto) Neutrophils % Lymphocytes % Monocytes % Eosinophils % Basophils % Nucleated RBC % PT with INR INR PTT (Actin FS) VBG pH 7.44 H POC VBG pCO2 40.2 POC VBG pO2 < 49 H VBG HCO3 26.7 VBG O2 Sat (Toñito) 59.1 L VBG Base Excess 2.8 H Sodium 131 L Potassium 4.6 Chloride 99 Carbon Dioxide 23 Anion Gap 9 BUN 7.2 Creatinine 0.9 Est GFR (CKD-EPI)AfAm 91.40 Est GFR (CKD-EPI)NonAf 78.86 Random Glucose 127 H Lactic Acid 2.2 H* Calcium 8.4 L Total Bilirubin 0.9 Direct Bilirubin 0.3 H AST 144 H ALT 123 H Alkaline Phosphatase 195 H LD Total 725 H Creatine Kinase 128 Troponin I < 0.02 Total Protein 7.5 Albumin 2.9 L Serum , Qual Active Medications Generic Name Dose Route Start Last Admin Trade Name Freq PRN Reason Stop Dose Admin Acetaminophen 650 mg 12/19/19 17:15 Tylenol - PO Q6H PRN PAIN Albuterol Sulfate 2 puff 12/19/19 17:15 Ventolin Hfa Inhaler - IH Q4H PRN SHORT OF BREATH/WHEEZING Chlorhexidine Gluconate 1 applic 12/19/19 22:00 Hibiclens For Decolonization - TP HS DARIEL Enoxaparin Sodium 90 mg 12/19/19 22:00 Lovenox - SQ BID DARIEL Hydroxychloroquine Sulfate 400 mg 12/19/19 18:00 Plaquenil - PO 12/19/19 18:01 BID@0600,1800 DARIEL Sodium Chloride 1,000 mls @ 42 mls/hr 12/19/19 18:37 12/19/19 18:58 Normal Saline - IV 42 mls/hr ASDIR DARIEL Administration Norepinephrine Bitartrate 16, 500 mls @ 9.375 mls/hr 12/19/19 19:00 000 mcg/ Sodium Chloride IV TITR DARIEL Protocol 5 MCG/MIN Mupirocin 1 applic 12/19/19 22:00 Bactroban Ointment (For Decolonization) - NS 12/24/19 21:59 BID DARIEL Zinc Sulfate 220 mg 12/19/19 20:00 Orazinc - PO DAILY DARIEL ASSESSMENT/PLAN: 44 year old female with a history of Hodgkins lymphoma s/p radiation and stem cell transplant in 2011, severe obesity who came to the hospital for shortness of breath admitted for acute hypoxic respiratory failure 2/2 suspected COVID pneumonitis #Acute Hypoxic Respiratory Failure #Septic Shock #Suspected COVID-19 Pneumonitis #Transaminitis PLAN -acute hypoxic respiratory failure likely 2/2 ARDS physiology due to COVID pneumonitis and cytokine storm -CXR shows bilateral infiltrates with what appears to be a calcified lymph node in mediastinum -currently on high flow O2 and proned, will monitor respiratory status -CXR in morning -started plaquenil, monitor QTc -Zinc started -follow lactate -LDH, ferritin, d-dimer pending -empiric therapeutic anticoagulation started with lovenox 90 BID, weight based -monitor SpO2, BP -titrate pressors as necessary -conservative with fluids -tylenol for fevers -ID consulted Visit type - Emergency Visit Emergency Visit: Yes ED Registration Date: 12/19/19 Care time: The patient presented to the Emergency Department on the above date and was hospitalized for further evaluation of their emergent condition. - New Patient This patient is new to me today: Yes Date on this admission: 12/19/19 - Critical Care Critical Care patient: Yes Total Critical Care Time (in minutes): 36 Critical Care Statement: The care of this patient involved high complexity decision making to prevent further life threatening deterioration of the patient's condition and/or to evaluate & treat vital organ system(s) failure or risk of failure. ATTENDING PHYSICIAN STATEMENT I saw and evaluated the patient. I reviewed the resident's note and discussed the case with the resident. I agree with the resident's findings and plan as documented. SUBJECTIVE: OBJECTIVE: ASSESSMENT AND PLAN:
[2019-12-19] MEDS: NOREPINEPHRINE BITARTRATE 16,000 MCG in SODIUM CHLORIDE 484 ML IV SCH (19:53)
[2019-12-19 20:26] LABS: ALBUMIN 2.6 g/dl (3.4-5.0); BILIRUBIN,TOTAL 0.9 mg/dL (0.2-1); CALCIUM 7.9 mg/dL (8.5-10.1); CREATININE 0.7 mg/dL (0.55-1.3); POTASSIUM 3.9 mmol/L (3.5-5.1); TOT PROT 6.6 g/dl (6.4-8.2)
[2019-12-19] MEDS ORDERED: ZINC SULFATE 220 MG CAPSULE (FP) ONE (20:50)
[2019-12-19] MEDS: ZINC SULFATE 220 MG CAPSULE (FP) PO SCH (21:00)
[2019-12-19] MEDS ORDERED: ENOXAPARIN NA (PORCINE) 100 MG/1 ML DISP.SYRIN SQ ONE (21:05)
[2019-12-19] MEDS: ENOXAPARIN NA (PORCINE) 100 MG/1 ML DISP.SYRIN SQ SCH (21:20)
[2019-12-19] MEDS ORDERED: ACETAMINOPHEN 325 MG TABLET (FP) ONE (21:21)
[2019-12-19] MEDS: ACETAMINOPHEN 325 MG TABLET (FP) PO PRN (21:25)
[2019-12-19] MEDS ORDERED: MUPIROCIN 2% TOPICAL OINTMENT FOR DECOLONIZATION NS SCH (22:00)
[2019-12-19] MEDS ORDERED: CHLORHEXIDINE GLUCONATE 4% CLEANSER FOR DECOLONIZATION TP SCH (22:00)
--- NOTE | 2019-12-20 00:25 | PDOC ---
*Physical Exam - Vital Signs Last Vital Signs Temp Pulse Resp BP Pulse Ox 99.7 F H 125 H 29 H 103/61 100 12/19/19 21:25 12/19/19 21:00 12/19/19 21:00 12/19/19 21:00 12/19/19 21:00 ED Treatment Course - LABORATORY CBC & Chemistry Diagram: 12/20/19 06:15 12/19/19 19:10 - ADDITIONAL ORDERS Additional order review: Laboratory Results 12/19/19 12/19/19 12/19/19 13:25 13:13 13:13 PT with INR INR PTT (Actin FS) VBG pH 7.44 H POC VBG pCO2 40.2 POC VBG pO2 < 49 H VBG HCO3 26.7 VBG O2 Sat (Toñito) 59.1 L VBG Base Excess 2.8 H Sodium 131 L Potassium 4.6 Chloride 99 Carbon Dioxide 23 Anion Gap 9 BUN 7.2 Creatinine 0.9 Est GFR (CKD-EPI)AfAm 91.40 Est GFR (CKD-EPI)NonAf 78.86 Random Glucose 127 H Lactic Acid 2.2 H* Calcium 8.4 L Total Bilirubin 0.9 Direct Bilirubin 0.3 H AST 144 H ALT 123 H Alkaline Phosphatase 195 H LD Total 725 H Creatine Kinase 128 Troponin I < 0.02 Total Protein 7.5 Albumin 2.9 L Serum , Qual 12/19/19 12/19/19 13:13 13:13 PT with INR 14.80 H INR 1.25 H PTT (Actin FS) 28.8 VBG pH POC VBG pCO2 POC VBG pO2 VBG HCO3 VBG O2 Sat (Toñito) VBG Base Excess Sodium Potassium Chloride Carbon Dioxide Anion Gap BUN Creatinine Est GFR (CKD-EPI)AfAm Est GFR (CKD-EPI)NonAf Random Glucose Lactic Acid Calcium Total Bilirubin Direct Bilirubin AST ALT Alkaline Phosphatase LD Total Creatine Kinase Troponin I Total Protein Albumin Serum , Qual Negative 12/19/19 13:13 RBC 4.06 MCV 88.8 MCHC 33.7 RDW 14.0 MPV 7.1 L Neutrophils % 87.2 H D Lymphocytes % 5.4 L D Monocytes % 7.2 Eosinophils % 0.1 D Basophils % 0.1 - Medications Given in the ED: ED Medications Discontinued Medications Generic Name Dose Route Start Last Admin Trade Name Freq PRN Reason Stop Dose Admin Acetaminophen 1,000 mg 12/19/19 13:07 12/19/19 13:35 Ofirmev Injection - IVPB 12/19/19 13:08 1,000 mg ONCE ONE Administration Hydroxychloroquine Sulfate 400 mg 12/19/19 17:30 12/19/19 18:00 Plaquenil - PO 12/19/19 17:31 400 mg ONCE ONE Administration Sodium Chloride 500 mls @ 500 mls/hr 12/19/19 13:47 12/19/19 14:16 Normal Saline - IV 12/19/19 14:46 Not Given ASDIR STA Doxycycline Hyclate 100 mg/ 100 mls @ 100 mls/hr 12/19/19 14:45 12/19/19 15:50 Dextrose IVPB 12/19/19 15:44 100 mls/hr ONCE ONE Administration Sodium Chloride 1,000 mls @ 100 mls/hr 12/19/19 17:15 12/19/19 17:52 Normal Saline - IV 100 mls/hr ASDIR DARIEL Administration Sodium Chloride 1,000 mls @ 42 mls/hr 12/19/19 18:37 12/19/19 18:58 Normal Saline - IV 42 mls/hr ASDIR DARIEL Administration Sodium Chloride 500 ml 12/19/19 14:14 12/19/19 14:15 Normal Saline - IV 12/19/19 14:15 500 ml ONCE ONE Administration Medical Decision Making - Medical Decision Making 12/20/19 00:24 Kaleigh Grant is a 44yo woman with a PMH of Hodgkin's lymphoma s/p radiation s/p stem cell transplant (2011), anxiety who presented with 10 day of SOB, my algias, malaise and 5 days of cough, anorexia, and fever. She was hypoxic to 68% on RA. ED course notable for: - CXR with patchy infiltrates suggestive of COVID - Hypoxia improved with HFNC and prone positioning - Central line placed for pressors; MAPs in 50's despite fluid bolus - Admitted to the ICU 12/20/19 06:53 - No additional events overnight - To be signed out to the day team. Joann Martinez PGY2 Discharge - Discharge Information Problems reviewed: Yes Clinical Impression/Diagnosis: Acute respiratory failure with hypoxia Condition: Fair - Follow up/Referral - Patient Discharge Instructions - Post Discharge Activity
[2019-12-20] MEDS ORDERED: ACETAMINOPHEN 325 MG TABLET (FP) ONE (01:22)
[2019-12-20] MEDS ORDERED: ACETAMINOPHEN 650 MG/20.3 ML ORAL SOLUTION (CUPS) PO STA (01:40)
[2019-12-20] MEDS ORDERED: HYDROXYCHLOROQUINE SO4 200 MG TABLET (FP) PO SCH (06:00)
[2019-12-20 06:41] LABS: BASO % 0.2 % (0-2.0); EOS % 0.8 % (0-4.5); HEMATOCRIT 32.3 % (32.4-45.2); HEMOGLOBIN 10.9 GM/dL (10.7-15.3); LYMPH % 8.3 % (8-40); MCH 30.2 pg (25.7-33.7); MCHC 33.7 g/dl (32.0-36.0); MEAN CELL VOLUME 89.4 fl (80-96); MEAN PLT VOLUME 6.9 fl (7.5-11.1); NEUT % 85.7 % (42.8-82.8); PLATELET COUNT 239 K/MM3 (134-434); RBC 3.61 M/mm3 (3.60-5.2); WHITE BLOOD COUNT 7.1 K/mm3 (4.0-10.0)
--- NOTE | 2019-12-20 07:20 | PDOC ---
*Physical Exam - Vital Signs Last Vital Signs Temp Pulse Resp BP Pulse Ox 99.3 F 113 H 27 H 116/73 100 12/20/19 05:57 12/20/19 05:57 12/20/19 05:57 12/20/19 05:57 12/19/19 21:00 ED Treatment Course - LABORATORY CBC & Chemistry Diagram: 12/20/19 06:15 12/19/19 19:10 - ADDITIONAL ORDERS Additional order review: 12/19/19 13:13 RBC 4.06 MCV 88.8 MCHC 33.7 RDW 14.0 MPV 7.1 L Neutrophils % 87.2 H D Lymphocytes % 5.4 L D Monocytes % 7.2 Eosinophils % 0.1 D Basophils % 0.1 - Medications Given in the ED: ED Medications Discontinued Medications Generic Name Dose Route Start Last Admin Trade Name Starq PRN Reason Stop Dose Admin Acetaminophen 1,000 mg 12/19/19 13:07 12/19/19 13:35 Ofirmev Injection - IVPB 12/19/19 13:08 1,000 mg ONCE ONE Administration Acetaminophen 975 mg 12/20/19 01:40 12/20/19 01:42 Tylenol Oral Solution - PO 12/20/19 01:41 975 mg ONCE STA Administration Hydroxychloroquine Sulfate 400 mg 12/19/19 17:30 12/19/19 18:00 Plaquenil - PO 12/19/19 17:31 400 mg ONCE ONE Administration Sodium Chloride 500 mls @ 500 mls/hr 12/19/19 13:47 12/19/19 14:16 Normal Saline - IV 12/19/19 14:46 Not Given ASDIR STA Doxycycline Hyclate 100 mg/ 100 mls @ 100 mls/hr 12/19/19 14:45 12/19/19 15:50 Dextrose IVPB 12/19/19 15:44 100 mls/hr ONCE ONE Administration Sodium Chloride 1,000 mls @ 100 mls/hr 12/19/19 17:15 12/19/19 17:52 Normal Saline - IV 100 mls/hr ASDIR DARIEL Administration Sodium Chloride 1,000 mls @ 42 mls/hr 12/19/19 18:37 12/19/19 18:58 Normal Saline - IV 42 mls/hr ASDIR DARIEL Administration Sodium Chloride 500 ml 12/19/19 14:14 12/19/19 14:15 Normal Saline - IV 12/19/19 14:15 500 ml ONCE ONE Administration Medical Decision Making - Medical Decision Making 12/20/19 07:18 Signed out from night team. Admitted pt w suspected covid PNA. No acute events during day On 40L 95%FiO2 Hiflo and prone 5 levo Discharge - Discharge Information Problems reviewed: Yes Clinical Impression/Diagnosis: Acute respiratory failure with hypoxia Condition: Fair - Follow up/Referral - Patient Discharge Instructions - Post Discharge Activity
[2019-12-20 07:41] LABS: ALBUMIN 2.7 g/dl (3.4-5.0); BILIRUBIN,TOTAL 1.4 mg/dL (0.2-1); BLOOD UREA NITROGEN 4.8 mg/dL (7-18); CALCIUM 7.6 mg/dL (8.5-10.1); CREATININE 0.6 mg/dL (0.55-1.3); MAGNESIUM 2.5 mg/dL (1.8-2.4); PHOSPHOROUS 2.4 mg/dL (2.5-4.9); POTASSIUM 3.7 mmol/L (3.5-5.1); TOT PROT 6.5 g/dl (6.4-8.2)
[2019-12-20] MEDS ORDERED: ENOXAPARIN NA (PORCINE) 100 MG/1 ML DISP.SYRIN SQ ONE ×2 (08:04→22:44)
[2019-12-20] MEDS ORDERED: ZINC SULFATE 220 MG CAPSULE (FP) ONE (08:04)
[2019-12-20] MEDS: ENOXAPARIN NA (PORCINE) 100 MG/1 ML DISP.SYRIN SQ SCH ×2 (09:47→23:08)
[2019-12-20] MEDS: ZINC SULFATE 220 MG CAPSULE (FP) PO SCH (09:47)
[2019-12-20] MEDS ORDERED: ENOXAPARIN NA (PORCINE) 40 MG/0.4 ML DISP.SYRIN SQ SCH ×2 (10:00)
--- NOTE | 2019-12-20 11:16 | PN ---
Physical Exam: SUBJECTIVE: Patient seen and examined. Short of breath, cough OBJECTIVE: Vital Signs Period Temp Pulse Resp BP Sys/Rivera Pulse Ox Last 24 Hr 99 F-102.5 F 111-135 27-50 84-129/47-79 68-100 Vital Signs Temperature 99 F 12/20/19 07:30 Pulse Rate 131 H 12/20/19 10:00 Respiratory Rate 30 H 12/20/19 10:00 Blood Pressure 129/72 12/20/19 10:00 O2 Sat by Pulse Oximetry (%) 100 12/20/19 10:00 SAt 92% on NRB, turned pt to her side for lung exam and sat fell ot 87% GENERAL: The patient is awake, alert, in moderate distress with tachypnea HEAD: Normal with no signs of trauma. EYES: Extraocular movements intact, sclera anicteric, conjunctiva clear. No ptosis. ENT: Ears normal NECK: Supple. Central line left side of neck LUNGS: Bilateral lower base: crackles, using accessory muscle HEART: Tachycardic S1, S2 ABDOMEN: Soft, nontender, hypoactive bowel sounds, no guarding EXTREMITIES: Warm, well-perfused, no edema. NEUROLOGICAL: EOMI, face sym, nl hearing. Normal speech, gait not observed. PSYCH: Normal mood, normal affect. SKIN: Warm, dry Laboratory Results - last 24 hr 12/19/19 12/19/19 12/19/19 13:13 13:13 13:13 WBC 8.2 RBC 4.06 Hgb 12.1 Hct 36.0 MCV 88.8 MCH 29.9 MCHC 33.7 RDW 14.0 Plt Count 243 MPV 7.1 L Absolute Neuts (auto) 7.1 Neutrophils % 87.2 H D Lymphocytes % 5.4 L D Monocytes % 7.2 Eosinophils % 0.1 D Basophils % 0.1 Nucleated RBC % 0 PT with INR 14.80 H INR 1.25 H PTT (Actin FS) 28.8 D-Dimer VBG pH POC VBG pCO2 POC VBG pO2 VBG HCO3 VBG O2 Sat (Toñito) VBG Base Excess Sodium Potassium Chloride Carbon Dioxide Anion Gap BUN Creatinine Est GFR (CKD-EPI)AfAm Est GFR (CKD-EPI)NonAf Random Glucose Lactic Acid Calcium Phosphorus Magnesium Ferritin Total Bilirubin Direct Bilirubin AST ALT Alkaline Phosphatase LD Total Creatine Kinase Troponin I Total Protein Albumin Serum , Qual Negative 12/19/19 12/19/19 12/19/19 13:13 13:13 13:25 WBC RBC Hgb Hct MCV MCH MCHC RDW Plt Count MPV Absolute Neuts (auto) Neutrophils % Lymphocytes % Monocytes % Eosinophils % Basophils % Nucleated RBC % PT with INR INR PTT (Actin FS) D-Dimer VBG pH 7.44 H POC VBG pCO2 40.2 POC VBG pO2 < 49 H VBG HCO3 26.7 VBG O2 Sat (Toñito) 59.1 L VBG Base Excess 2.8 H Sodium 131 L Potassium 4.6 Chloride 99 Carbon Dioxide 23 Anion Gap 9 BUN 7.2 Creatinine 0.9 Est GFR (CKD-EPI)AfAm 91.40 Est GFR (CKD-EPI)NonAf 78.86 Random Glucose 127 H Lactic Acid 2.2 H* Calcium 8.4 L Phosphorus Magnesium Ferritin Total Bilirubin 0.9 Direct Bilirubin 0.3 H AST 144 H ALT 123 H Alkaline Phosphatase 195 H LD Total 725 H Creatine Kinase 128 Troponin I < 0.02 Total Protein 7.5 Albumin 2.9 L Serum , Qual 12/19/19 12/19/19 12/19/19 19:10 19:10 19:30 WBC RBC Hgb Hct MCV MCH MCHC RDW Plt Count MPV Absolute Neuts (auto) Neutrophils % Lymphocytes % Monocytes % Eosinophils % Basophils % Nucleated RBC % PT with INR INR PTT (Actin FS) D-Dimer 2244 H VBG pH POC VBG pCO2 POC VBG pO2 VBG HCO3 VBG O2 Sat (Toñito) VBG Base Excess Sodium 136 Potassium 3.9 Chloride 103 Carbon Dioxide 26 Anion Gap 6 L BUN 6.0 L Creatinine 0.7 Est GFR (CKD-EPI)AfAm 123.86 Est GFR (CKD-EPI)NonAf 106.87 Random Glucose 124 H Lactic Acid 1.1 Calcium 7.9 L Phosphorus Magnesium Ferritin Total Bilirubin 0.9 Direct Bilirubin AST 114 H ALT 111 H Alkaline Phosphatase 179 H LD Total Creatine Kinase Troponin I Total Protein 6.6 Albumin 2.6 L Serum , Qual 12/20/19 12/20/19 12/20/19 06:15 06:15 06:15 WBC 7.1 RBC 3.61 Hgb 10.9 Hct 32.3 L MCV 89.4 MCH 30.2 MCHC 33.7 RDW 14.0 Plt Count 239 MPV 6.9 L Absolute Neuts (auto) 6.1 Neutrophils % 85.7 H Lymphocytes % 8.3 D Monocytes % 5.0 Eosinophils % 0.8 D Basophils % 0.2 Nucleated RBC % 0 PT with INR INR PTT (Actin FS) 34.4 D-Dimer VBG pH POC VBG pCO2 POC VBG pO2 VBG HCO3 VBG O2 Sat (Toñito) VBG Base Excess Sodium 138 Potassium 3.7 Chloride 105 Carbon Dioxide 27 Anion Gap 7 L BUN 4.8 L Creatinine 0.6 Est GFR (CKD-EPI)AfAm 130.30 Est GFR (CKD-EPI)NonAf 112.42 Random Glucose 122 H Lactic Acid Calcium 7.6 L Phosphorus 2.4 L Magnesium 2.5 H Ferritin 614.5 H Total Bilirubin 1.4 H Direct Bilirubin AST 100 H ALT 109 H Alkaline Phosphatase 198 H LD Total Creatine Kinase Troponin I Total Protein 6.5 Albumin 2.7 L Serum , Qual Active Medications Generic Name Dose Route Start Last Admin Trade Name Freq PRN Reason Stop Dose Admin Acetaminophen 650 mg 12/19/19 17:15 12/19/19 21:25 Tylenol - PO 650 mg Q6H PRN Administration PAIN Albuterol Sulfate 2 puff 12/19/19 17:15 Ventolin Hfa Inhaler - IH Q4H PRN SHORT OF BREATH/WHEEZING Chlorhexidine Gluconate 1 applic 12/19/19 22:00 Hibiclens For Decolonization - TP HS DARIEL Enoxaparin Sodium 90 mg 12/19/19 22:00 12/20/19 09:47 Lovenox - SQ 90 mg BID DARIEL Administration Hydroxychloroquine Sulfate 400 mg 12/19/19 18:00 Plaquenil - PO 12/19/19 18:01 BID@0600,1800 DARIEL Norepinephrine Bitartrate 16, 500 mls @ 9.375 mls/hr 12/19/19 19:00 12/19/19 19:53 000 mcg/ Sodium Chloride IV 5 mcg/min TITR DARIEL 9.375 mls/hr Administration Protocol 5 MCG/MIN Mupirocin 1 applic 12/19/19 22:00 Bactroban Ointment (For Decolonization) - NS 12/24/19 21:59 BID DARIEL Zinc Sulfate 220 mg 12/19/19 20:00 12/20/19 09:47 Orazinc - PO 220 mg DAILY DARIEL Administration Chest xray: bilateral air space disease/pneumonia, left greater than right, small left pleural effusion ASSESSMENT/PLAN: 44 yo woman with a PMH of lymphoma in remission x 8y presented 12/18 afternoon with complaints of SOB, myalgia over the past 5 to 10 days. In ED O2 sat 68% and BP 86/67. Tx with IVF and O2 with improved BP. Now on HFO. Tx in ED with Doxy. Plaquenil started. 1. COVID suspect 2. Hypoxia, desats to 87% with turning, on HFO2 3. Hypotension, resolved with IVF Plan 1. ID consult pending 2. Had one dose of Plaquenil 400 mg on 12/18 3. Contnue Zinc, Lovenox, Tylenol prn 4. add on: CRP, ferritin 5. monitor EKG 6. ICU consult pending Problem List - Problems (1) Suspected COVID-19 virus infection Problems reviewed: Yes Code(s): R68.89 - OTHER GENERAL SYMPTOMS AND SIGNS (2) Acute respiratory failure with hypoxia Problems reviewed: Yes Code(s): J96.01 - ACUTE RESPIRATORY FAILURE WITH HYPOXIA Visit type - Emergency Visit Emergency Visit: Yes ED Registration Date: 12/19/19 Care time: The patient presented to the Emergency Department on the above date and was hospitalized for further evaluation of their emergent condition. - New Patient This patient is new to me today: Yes Date on this admission: 12/20/19 - Critical Care Critical Care patient: No - Discharge Referral Referred to [facility] Med P.C.: No
--- NOTE | 2019-12-20 12:14 | EKG ---
Test Reason : Blood Pressure : / mmHG Vent. Rate : 126 BPM Atrial Rate : 126 BPM P-R Int : 120 ms QRS Dur : 088 ms QT Int : 316 ms P-R-T Axes : 038 -23 009 degrees QTc Int : 457 ms SINUS TACHYCARDIA POSSIBLE LEFT ATRIAL ENLARGEMENT LEFT VENTRICULAR HYPERTROPHY ABNORMAL ECG WHEN COMPARED WITH ECG OF 21-MAY-2018 19:13, NO SIGNIFICANT CHANGE WAS FOUND Confirmed by Kush Martines MD ([id number]) on 12/20/2019 12:13:53 PM Referred By: Confirmed By:Kush Martines MD
--- NOTE | 2019-12-20 12:54 | PN ---
Progress Note (short form) - Note Progress Note: Patient seen and examined in the ER. Awake and alert. Tachypneic at rest on HFNC: 50L / 90% FiO2. Reports some intermittent pleuritic type CP. NE @ 5 mcq for hemodynamic support. CXR: No gross change in bilateral infiltrates Intake & Output 12/17/19 12/18/19 12/19/19 12/20/19 23:59 23:59 23:59 23:59 Weight 200 lb Last Vital Signs Temp Pulse Resp BP Pulse Ox 99 F 131 H 30 H 129/72 100 12/20/19 07:30 12/20/19 10:00 12/20/19 10:00 12/20/19 10:00 12/20/19 10:00 Active Medications Acetaminophen (Tylenol -) 650 mg PO Q6H PRN PRN Reason: PAIN Last Admin: 12/19/19 21:25 Dose: 650 mg Documented by: Albuterol Sulfate (Ventolin Hfa Inhaler -) 2 puff IH Q4H PRN PRN Reason: SHORT OF BREATH/WHEEZING Chlorhexidine Gluconate (Hibiclens For Decolonization -) 1 applic TP HS [facility] Enoxaparin Sodium (Lovenox -) 90 mg SQ BID [facility] Last Admin: 12/20/19 09:47 Dose: 90 mg Documented by: Hydroxychloroquine Sulfate (Plaquenil -) 400 mg PO BID@0600,1800 [facility] Stop: 12/19/19 18:01 Norepinephrine Bitartrate 16, (000 mcg/ Sodium Chloride) 500 mls @ 9.375 mls/hr IV TITR [facility]; Protocol Last Admin: 12/19/19 19:53 Dose: 5 mcg/min, 9.375 mls/hr Documented by: Morphine Sulfate (Morphine Injection -) 1 mg IM Q6H PRN PRN Reason: PAIN LEVEL 1-5 Mupirocin (Bactroban Ointment (For Decolonization) -) 1 applic NS BID [facility] Stop: 12/24/19 21:59 Zinc Sulfate (Orazinc -) 220 mg PO DAILY [facility] Last Admin: 12/20/19 09:47 Dose: 220 mg Documented by: GENERAL: A&Ox3, Tachypneic on HFNC LUNGS: Tachypneic, bilateral coarse breath sounds HEART: tachycardic ABDOMEN: obese abdomen NEUROLOGICAL: Non-focal Laboratory Results - last 24 hr 12/19/19 12/19/19 12/19/19 13:13 13:13 13:13 WBC 8.2 RBC 4.06 Hgb 12.1 Hct 36.0 MCV 88.8 MCH 29.9 MCHC 33.7 RDW 14.0 Plt Count 243 MPV 7.1 L Absolute Neuts (auto) 7.1 Neutrophils % 87.2 H D Lymphocytes % 5.4 L D Monocytes % 7.2 Eosinophils % 0.1 D Basophils % 0.1 Nucleated RBC % 0 PT with INR 14.80 H INR 1.25 H PTT (Actin FS) 28.8 D-Dimer VBG pH POC VBG pCO2 POC VBG pO2 VBG HCO3 VBG O2 Sat (Toñito) VBG Base Excess Sodium Potassium Chloride Carbon Dioxide Anion Gap BUN Creatinine Est GFR (CKD-EPI)AfAm Est GFR (CKD-EPI)NonAf Random Glucose Lactic Acid Calcium Phosphorus Magnesium Ferritin Total Bilirubin Direct Bilirubin AST ALT Alkaline Phosphatase LD Total Creatine Kinase Troponin I Total Protein Albumin Serum , Qual Negative 12/19/19 12/19/19 12/19/19 13:13 13:13 13:25 WBC RBC Hgb Hct MCV MCH MCHC RDW Plt Count MPV Absolute Neuts (auto) Neutrophils % Lymphocytes % Monocytes % Eosinophils % Basophils % Nucleated RBC % PT with INR INR PTT (Actin FS) D-Dimer VBG pH 7.44 H POC VBG pCO2 40.2 POC VBG pO2 < 49 H VBG HCO3 26.7 VBG O2 Sat (Toñito) 59.1 L VBG Base Excess 2.8 H Sodium 131 L Potassium 4.6 Chloride 99 Carbon Dioxide 23 Anion Gap 9 BUN 7.2 Creatinine 0.9 Est GFR (CKD-EPI)AfAm 91.40 Est GFR (CKD-EPI)NonAf 78.86 Random Glucose 127 H Lactic Acid 2.2 H* Calcium 8.4 L Phosphorus Magnesium Ferritin Total Bilirubin 0.9 Direct Bilirubin 0.3 H AST 144 H ALT 123 H Alkaline Phosphatase 195 H LD Total 725 H Creatine Kinase 128 Troponin I < 0.02 Total Protein 7.5 Albumin 2.9 L Serum , Qual 12/19/19 12/19/19 12/19/19 19:10 19:10 19:30 WBC RBC Hgb Hct MCV MCH MCHC RDW Plt Count MPV Absolute Neuts (auto) Neutrophils % Lymphocytes % Monocytes % Eosinophils % Basophils % Nucleated RBC % PT with INR INR PTT (Actin FS) D-Dimer 2244 H VBG pH POC VBG pCO2 POC VBG pO2 VBG HCO3 VBG O2 Sat (Toñito) VBG Base Excess Sodium 136 Potassium 3.9 Chloride 103 Carbon Dioxide 26 Anion Gap 6 L BUN 6.0 L Creatinine 0.7 Est GFR (CKD-EPI)AfAm 123.86 Est GFR (CKD-EPI)NonAf 106.87 Random Glucose 124 H Lactic Acid 1.1 Calcium 7.9 L Phosphorus Magnesium Ferritin Total Bilirubin 0.9 Direct Bilirubin AST 114 H ALT 111 H Alkaline Phosphatase 179 H LD Total Creatine Kinase Troponin I Total Protein 6.6 Albumin 2.6 L Serum , Qual 12/20/19 12/20/19 12/20/19 06:15 06:15 06:15 WBC 7.1 RBC 3.61 Hgb 10.9 Hct 32.3 L MCV 89.4 MCH 30.2 MCHC 33.7 RDW 14.0 Plt Count 239 MPV 6.9 L Absolute Neuts (auto) 6.1 Neutrophils % 85.7 H Lymphocytes % 8.3 D Monocytes % 5.0 Eosinophils % 0.8 D Basophils % 0.2 Nucleated RBC % 0 PT with INR INR PTT (Actin FS) 34.4 D-Dimer VBG pH POC VBG pCO2 POC VBG pO2 VBG HCO3 VBG O2 Sat (Toñito) VBG Base Excess Sodium 138 Potassium 3.7 Chloride 105 Carbon Dioxide 27 Anion Gap 7 L BUN 4.8 L Creatinine 0.6 Est GFR (CKD-EPI)AfAm 130.30 Est GFR (CKD-EPI)NonAf 112.42 Random Glucose 122 H Lactic Acid Calcium 7.6 L Phosphorus 2.4 L Magnesium 2.5 H Ferritin 614.5 H Total Bilirubin 1.4 H Direct Bilirubin AST 100 H ALT 109 H Alkaline Phosphatase 198 H LD Total Creatine Kinase Troponin I Total Protein 6.5 Albumin 2.7 L Serum , Qual ASSESSMENT/PLAN: Acute Hypoxic Respiratory Failure due to ARDS due to Probable COVID19 Pneumonitis Septic Shock Transaminitis Hodgkins lymphoma s/p radiation and stem cell transplant in 2011 HFNC with Prone positioning as tolerated ID evaluation Started on Plaquenil : follow EKG Full AC Zinc / Vitamin C Pressors to maintain MAP > 65 Conservative IVF management Requires ICU monitoring Dr Juliana Critical care time spent in reviewing chart, evaluating patient and formulating plan - 36 minutes.
[2019-12-20] MEDS ORDERED: VANCOMYCIN 500 MG VIAL (RESTRICTED TO ID ONLY) ONE (14:33)
[2019-12-20] MEDS ORDERED: PIPERACILLIN/TAZOB 3.375 GM 3.375 GM/50 ML BAG IVPB ONE ×2 (14:34→19:28)
[2019-12-20] MEDS: HYDROXYCHLOROQUINE SO4 200 MG TABLET (FP) PO SCH (15:03)
[2019-12-20] MEDS ORDERED: MORPHINE SULFATE 2 MG/ML VIAL ONE (15:09)
[2019-12-20] MEDS: PIPERACILLIN/TAZOB 3.375 GM 3.375 GM in DEXTROSE 5%-WATER - 50 ML IVPB SCH ×2 (15:10→19:38)
[2019-12-20] MEDS: VANCOMYCIN 1,000 MG in DEXTROSE 5%-WATER - 250 ML IVPB SCH (15:30)
[2019-12-20] MEDS: morphine CARPU-JECT 2 MG/1 ML DISP.SYRIN IM PRN (15:30)
--- NOTE | 2019-12-20 15:41 | PN ---
Progress Note (short form) - Note Progress Note: ID CONSULT DICTATED COVID-19 RESP FAILURE SEPSIS ELEVATED LFTS AWAIT COVID-19 PCR CULTURES HYDROXYCHLOROQUINE EMPIRIC ZOSYN/ VANCOMYCIN AIRBORNE PRECAUTIONS CRITICAL CARE TIME 40MIN
--- NOTE | 2019-12-20 16:03 | CONS ---
INFECTIOUS DISEASE CONSULTATION DATE OF CONSULTATION: DATE OF DICTATION: 12/20/2019 HISTORY: The patient is a 44-year-old female with a history of Hodgkin lymphoma in remission evaluated for probable COVID-19 infection. She was admitted through the emergency room on December 19, 2019, with a 10-day history of worsening generalized weakness, malaise, arthralgias, and malaise. Over the past 4-5 days, she became increasingly short of breath with a dry cough and poor oral intake. She most recently developed fever and chills. She presented to the emergency room where she febrile to 102. She was noted to have an O2 saturation of 68%. Chest x-ray shows bilateral infiltrates. She was started on high-flow oxygen. Her course has been complicated by hypotension. At the present time, she is awake. She has no complaints of chest pain or shortness of breath. 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 According to the history, her sister was diagnosed with COVID-19. PAST MEDICAL HISTORY: Positive for Hodgkin lymphoma in remission. She is status post radiation therapy and stem cell transplant in 2011. Past medical history also includes appendectomy and cholecystectomy. ALLERGIES: No known allergies. MEDICATIONS: Include doxycycline, albuterol, norepinephrine, Tylenol, morphine. SOCIAL HISTORY: As per HPI. She is a nonsmoker. SYSTEMS REVIEW: Neurologic: No loss of consciousness, seizure activity, focal weakness. Cardiac: Negative chest pain or palpitations. Respiratory: As per HPI. Gastrointestinal: No vomiting or diarrhea. Genitourinary: Negative for urinary tract infection. LABORATORY DATA: White count 7.1, 85 neutrophils, 8 lymphocytes, 5 monocytes, hematocrit 32.3, platelets 239, creatinine is 0.6. Total bilirubin 1.4, alkaline phosphatase 198, AST 100, ALT 109, LDH 590, C-reactive protein 21.2. Cultures are pending as is COVID-19 PCR. PHYSICAL EXAMINATION: General: She is awake and alert. She is slightly short of breath at rest on high-flow oxygen. Patient is morbidly obese. Vital Signs: Maximum temperature 102.5, blood pressure 123/68, pulse 132, respirations 30 per minute. HEENT: Oropharynx negative. Heart: Sounds S1, S2. Tachycardic. Lungs: Decreased breath sounds bilaterally. Abdomen: Soft and nontender. Extremities: Positive for edema. IMPRESSION: 1. Probable COVID-19. 2. Bilateral pneumonia. 3. Impending respiratory failure. 4. Sepsis, rule out septic shock. 5. Elevated liver enzymes. PLAN: Await COVID-19 PCR cultures. Start hydroxychloroquine. Empiric antibiotic coverage with Zosyn and vancomycin for possible hospital-acquired bacterial pathogens. Continue ventilatory support. Pressors as needed. Airborne precautions. Critical care time spent 40 minutes. Thank you for the kind referral. ANABELA CLARKE M.D. [id number]
--- NOTE | 2019-12-20 19:22 | PDOC ---
*Physical Exam - Vital Signs Last Vital Signs Temp Pulse Resp BP Pulse Ox 99 F 132 H 30 H 123/68 100 12/20/19 07:30 12/20/19 12:40 12/20/19 10:00 12/20/19 12:40 12/20/19 10:00 ED Treatment Course - LABORATORY CBC & Chemistry Diagram: 12/20/19 06:15 12/20/19 06:15 - ADDITIONAL ORDERS Additional order review: 12/19/19 13:13 RBC 4.06 MCV 88.8 MCHC 33.7 RDW 14.0 MPV 7.1 L Neutrophils % 87.2 H D Lymphocytes % 5.4 L D Monocytes % 7.2 Eosinophils % 0.1 D Basophils % 0.1 - Medications Given in the ED: ED Medications Discontinued Medications Generic Name Dose Route Start Last Admin Trade Name Starq PRN Reason Stop Dose Admin Acetaminophen 1,000 mg 12/19/19 13:07 12/19/19 13:35 Ofirmev Injection - IVPB 12/19/19 13:08 1,000 mg ONCE ONE Administration Acetaminophen 975 mg 12/20/19 01:40 12/20/19 01:42 Tylenol Oral Solution - PO 12/20/19 01:41 975 mg ONCE STA Administration Hydroxychloroquine Sulfate 400 mg 12/19/19 17:30 12/19/19 18:00 Plaquenil - PO 12/19/19 17:31 400 mg ONCE ONE Administration Sodium Chloride 500 mls @ 500 mls/hr 12/19/19 13:47 12/19/19 14:16 Normal Saline - IV 12/19/19 14:46 Not Given ASDIR STA Doxycycline Hyclate 100 mg/ 100 mls @ 100 mls/hr 12/19/19 14:45 12/19/19 15:50 Dextrose IVPB 12/19/19 15:44 100 mls/hr ONCE ONE Administration Sodium Chloride 1,000 mls @ 100 mls/hr 12/19/19 17:15 12/19/19 17:52 Normal Saline - IV 100 mls/hr ASDIR DARIEL Administration Sodium Chloride 1,000 mls @ 42 mls/hr 12/19/19 18:37 12/19/19 18:58 Normal Saline - IV 42 mls/hr ASDIR DARIEL Administration Sodium Chloride 500 ml 12/19/19 14:14 12/19/19 14:15 Normal Saline - IV 12/19/19 14:15 500 ml ONCE ONE Administration Medical Decision Making - Medical Decision Making 12/20/19 19:20 Sign out received from Dr Ross. Kaleigh Grant is a 44yo woman with a PMH of Hodgkin's lymphoma s/p radiation s/p stem cell transplant (2011), anxiety who presented with 10 day of SOB, myalgias, malaise and 5 days of cough, anorexia, and fever. She was hypoxic to 68% on RA, improved to high 90's with HFNC, and has required pressors for BP support. She has been admitted to the ICU for management of suspected COVID-19 and is currently waiting for an available bed. There were no acute events throughout the day today. 12/21/19 02:49 - Norepinephrine off for approx 30 minutes, maintaining MAPs over 65. Will continue to monitor 12/21/19 06:47 - To be signed out to Dr Destiny Martinez PGY2 Discharge - Discharge Information Problems reviewed: Yes Clinical Impression/Diagnosis: Acute respiratory failure with hypoxia Condition: Fair - Follow up/Referral - Patient Discharge Instructions - Post Discharge Activity
[2019-12-20] MEDS: NOREPINEPHRINE BITARTRATE 16,000 MCG in SODIUM CHLORIDE 484 ML IV SCH (19:38)
[2019-12-21] MEDS ORDERED: MORPHINE SULFATE 2 MG/ML VIAL ONE (00:16)
[2019-12-21] MEDS: morphine CARPU-JECT 2 MG/1 ML DISP.SYRIN IM PRN (00:26)
[2019-12-21] MEDS ORDERED: VANCOMYCIN 1 GRAM (PRE-DOCKED) 1,000 MG/250 ML BAG IVPB ONE (02:09)
[2019-12-21] MEDS ORDERED: PIPERACILLIN/TAZOB 3.375 GM 3.375 GM/50 ML BAG IVPB ONE ×2 (02:09→07:49)
[2019-12-21] MEDS: HYDROXYCHLOROQUINE SO4 200 MG TABLET (FP) PO SCH ×3 (02:20→14:43)
[2019-12-21] MEDS: VANCOMYCIN 1,000 MG in DEXTROSE 5%-WATER - 250 ML IVPB SCH ×2 (02:20→14:43)
[2019-12-21] MEDS: PIPERACILLIN/TAZOB 3.375 GM 3.375 GM in DEXTROSE 5%-WATER - 50 ML IVPB SCH ×2 (02:20→09:04)
[2019-12-21] MEDS ORDERED: ACETAMINOPHEN 325 MG TABLET (FP) ONE ×2 (06:21→12:36)
[2019-12-21] MEDS: ACETAMINOPHEN 325 MG TABLET (FP) PO PRN ×3 (06:25→22:50)
[2019-12-21] MEDS ORDERED: MORPHINE SULFATE 2 MG/ML VIAL IM PRN (07:00)
[2019-12-21 07:03] LABS: BASO % 0.2 % (0-2.0); EOS % 0.4 % (0-4.5); HEMATOCRIT 29.5 % (32.4-45.2); HEMOGLOBIN 10.1 GM/dL (10.7-15.3); LYMPH % 6.3 % (8-40); MCH 30.3 pg (25.7-33.7); MCHC 34.3 g/dl (32.0-36.0); MEAN CELL VOLUME 88.3 fl (80-96); MONO % 5.3 % (3.8-10.2); NEUT % 87.8 % (42.8-82.8); PLATELET COUNT 280 K/MM3 (134-434); RBC 3.34 M/mm3 (3.60-5.2); RDW 13.6 % (11.6-15.6); WHITE BLOOD COUNT 9.5 K/mm3 (4.0-10.0)
[2019-12-21 07:40] LABS: ALBUMIN 2.5 g/dl (3.4-5.0); BILIRUBIN,TOTAL 1.3 mg/dL (0.2-1); BLOOD UREA NITROGEN 5.9 mg/dL (7-18); CALCIUM 7.6 mg/dL (8.5-10.1); CREATININE 0.7 mg/dL (0.55-1.3); POTASSIUM 3.3 mmol/L (3.5-5.1); TOT PROT 6.2 g/dl (6.4-8.2)
[2019-12-21] MEDS ORDERED: ZINC SULFATE 220 MG CAPSULE (FP) ONE (07:49)
[2019-12-21] MEDS ORDERED: ENOXAPARIN NA (PORCINE) 100 MG/1 ML DISP.SYRIN SQ ONE (07:49)
[2019-12-21] MEDS: ZINC SULFATE 220 MG CAPSULE (FP) PO SCH (09:04)
[2019-12-21] MEDS: ENOXAPARIN NA (PORCINE) 100 MG/1 ML DISP.SYRIN SQ SCH ×2 (09:04→22:38)
--- NOTE | 2019-12-21 12:21 | PN ---
Progress Note (short form) - Note Progress Note: Patient seen and examined in the ER. Awake and alert. Mildly tachypneic at rest on NRBM : saturation 90%. Reports mild subjective improvement from improvement but appears clinically the same. Intermittent pleuritic type CP better with MS. MUIR @ 5 mcq for hemodynamic support. GENERAL: A&Ox3, Tachypneic on HFNC LUNGS: Tachypneic, bilateral coarse breath sounds HEART: tachycardic ABDOMEN: obese abdomen NEUROLOGICAL: Non-focal Laboratory Results - last 24 hr 12/19/19 12/19/19 12/19/19 13:13 13:13 13:13 WBC 8.2 RBC 4.06 Hgb 12.1 Hct 36.0 MCV 88.8 MCH 29.9 MCHC 33.7 RDW 14.0 Plt Count 243 MPV 7.1 L Absolute Neuts (auto) 7.1 Neutrophils % 87.2 H D Lymphocytes % 5.4 L D Monocytes % 7.2 Eosinophils % 0.1 D Basophils % 0.1 Nucleated RBC % 0 PT with INR 14.80 H INR 1.25 H PTT (Actin FS) 28.8 D-Dimer VBG pH POC VBG pCO2 POC VBG pO2 VBG HCO3 VBG O2 Sat (Toñito) VBG Base Excess Sodium Potassium Chloride Carbon Dioxide Anion Gap BUN Creatinine Est GFR (CKD-EPI)AfAm Est GFR (CKD-EPI)NonAf Random Glucose Lactic Acid Calcium Phosphorus Magnesium Ferritin Total Bilirubin Direct Bilirubin AST ALT Alkaline Phosphatase LD Total Creatine Kinase Troponin I Total Protein Albumin Serum , Qual Negative 12/19/19 12/19/19 12/19/19 13:13 13:13 13:25 WBC RBC Hgb Hct MCV MCH MCHC RDW Plt Count MPV Absolute Neuts (auto) Neutrophils % Lymphocytes % Monocytes % Eosinophils % Basophils % Nucleated RBC % PT with INR INR PTT (Actin FS) D-Dimer VBG pH 7.44 H POC VBG pCO2 40.2 POC VBG pO2 < 49 H VBG HCO3 26.7 VBG O2 Sat (Toñito) 59.1 L VBG Base Excess 2.8 H Sodium 131 L Potassium 4.6 Chloride 99 Carbon Dioxide 23 Anion Gap 9 BUN 7.2 Creatinine 0.9 Est GFR (CKD-EPI)AfAm 91.40 Est GFR (CKD-EPI)NonAf 78.86 Random Glucose 127 H Lactic Acid 2.2 H* Calcium 8.4 L Phosphorus Magnesium Ferritin Total Bilirubin 0.9 Direct Bilirubin 0.3 H AST 144 H ALT 123 H Alkaline Phosphatase 195 H LD Total 725 H Creatine Kinase 128 Troponin I < 0.02 Total Protein 7.5 Albumin 2.9 L Serum , Qual 12/19/19 12/19/19 12/19/19 19:10 19:10 19:30 WBC RBC Hgb Hct MCV MCH MCHC RDW Plt Count MPV Absolute Neuts (auto) Neutrophils % Lymphocytes % Monocytes % Eosinophils % Basophils % Nucleated RBC % PT with INR INR PTT (Actin FS) D-Dimer 2244 H VBG pH POC VBG pCO2 POC VBG pO2 VBG HCO3 VBG O2 Sat (Toñito) VBG Base Excess Sodium 136 Potassium 3.9 Chloride 103 Carbon Dioxide 26 Anion Gap 6 L BUN 6.0 L Creatinine 0.7 Est GFR (CKD-EPI)AfAm 123.86 Est GFR (CKD-EPI)NonAf 106.87 Random Glucose 124 H Lactic Acid 1.1 Calcium 7.9 L Phosphorus Magnesium Ferritin Total Bilirubin 0.9 Direct Bilirubin AST 114 H ALT 111 H Alkaline Phosphatase 179 H LD Total Creatine Kinase Troponin I Total Protein 6.6 Albumin 2.6 L Serum , Qual 12/20/19 12/20/19 12/20/19 06:15 06:15 06:15 WBC 7.1 RBC 3.61 Hgb 10.9 Hct 32.3 L MCV 89.4 MCH 30.2 MCHC 33.7 RDW 14.0 Plt Count 239 MPV 6.9 L Absolute Neuts (auto) 6.1 Neutrophils % 85.7 H Lymphocytes % 8.3 D Monocytes % 5.0 Eosinophils % 0.8 D Basophils % 0.2 Nucleated RBC % 0 PT with INR INR PTT (Actin FS) 34.4 D-Dimer VBG pH POC VBG pCO2 POC VBG pO2 VBG HCO3 VBG O2 Sat (Toñito) VBG Base Excess Sodium 138 Potassium 3.7 Chloride 105 Carbon Dioxide 27 Anion Gap 7 L BUN 4.8 L Creatinine 0.6 Est GFR (CKD-EPI)AfAm 130.30 Est GFR (CKD-EPI)NonAf 112.42 Random Glucose 122 H Lactic Acid Calcium 7.6 L Phosphorus 2.4 L Magnesium 2.5 H Ferritin 614.5 H Total Bilirubin 1.4 H Direct Bilirubin AST 100 H ALT 109 H Alkaline Phosphatase 198 H LD Total Creatine Kinase Troponin I Total Protein 6.5 Albumin 2.7 L Serum , Qual ASSESSMENT/PLAN: Acute Hypoxic Respiratory Failure due to ARDS due to Probable COVID19 Pneumonitis Septic Shock Transaminitis Hodgkins lymphoma s/p radiation and stem cell transplant in 2012 NRBM mask as tolerated : can alternate with HFNC ABX per ID Plaquenil : follow EKG AC Zinc / Vitamin C Conservative IVF management MS PRN Frequent repositioning / Prone Requires ICU monitoring Dr Andrews Critical care time spent in reviewing chart, evaluating patient and formulating plan - 36 minutes.
[2019-12-21] MEDS ORDERED: methylPREDNISolone NA SUCC 125 MG/2 ML VIAL IVPUSH ONE (13:02)
[2019-12-21] MEDS ORDERED: POTASSIUM CHLORIDE TABS 20 MEQ TABLET.ER (FP) PO ONE ×2 (13:41→14:29)
[2019-12-21] MEDS ORDERED: methylPREDNISolone NA SUCC 125 MG/2 ML VIAL ONE (14:29)
--- NOTE | 2019-12-21 16:54 | EKG ---
Test Reason : Blood Pressure : / mmHG Vent. Rate : 126 BPM Atrial Rate : 127 BPM P-R Int : 130 ms QRS Dur : 090 ms QT Int : 320 ms P-R-T Axes : 042 -16 020 degrees QTc Int : 463 ms SINUS TACHYCARDIA OTHERWISE NORMAL ECG Confirmed by MD MERRILL, BRIAN ([id number]) on 12/21/2019 4:54:33 PM Referred By: Confirmed By:BRIAN MOMIN MD
--- NOTE | 2019-12-21 16:56 | EKG ---
Test Reason : Blood Pressure : / mmHG Vent. Rate : 111 BPM Atrial Rate : 111 BPM P-R Int : 124 ms QRS Dur : 094 ms QT Int : 350 ms P-R-T Axes : 041 -13 008 degrees QTc Int : 476 ms SINUS TACHYCARDIA POSSIBLE LEFT ATRIAL ENLARGEMENT LEFT VENTRICULAR HYPERTROPHY ABNORMAL ECG Confirmed by MD MERRILL, BRIAN ([id number]) on 12/21/2019 4:56:14 PM Referred By: Confirmed By:BRIAN MOMIN MD
--- NOTE | 2019-12-21 20:48 | PN ---
Progress Note (short form) - Note Progress Note: Called by night resident concerned pt has an ICU note supposed to be on levophed now transferred to Med surg, nurse requesting discontinuation of levophed order Pt reported to be on hi hetal saturating in 80s, no longer needing vasopressors O/E Pt awake AAOx3 On hi hetal oxygen HR120, BP 120/80s, sats 88% Will cont med surg
[2019-12-21] MEDS: methylPREDNISolone NA SUCC 40 MG/1 ML VIAL IVPUSH SCH (22:38)
[2019-12-22] MEDS ORDERED: PIPERACILLIN/TAZOBACTAM 3.375 GM VIAL IVPB ONE ×2 (02:14→08:51)
[2019-12-22] MEDS ORDERED: DEXTROSE 5%-WATER - 50 ML IVPB ONE ×2 (02:14→08:51)
[2019-12-22] MEDS: PIPERACILLIN/TAZOB 3.375 GM 3.375 GM in DEXTROSE 5%-WATER - 50 ML IVPB SCH ×2 (02:24→09:14)
[2019-12-22] MEDS: HYDROXYCHLOROQUINE SO4 200 MG TABLET (FP) PO SCH ×3 (03:04→15:00)
[2019-12-22] MEDS: VANCOMYCIN 1,000 MG in DEXTROSE 5%-WATER - 250 ML IVPB SCH (03:07)
[2019-12-22] MEDS: VANCOMYCIN 1 GRAM (PRE-DOCKED) 1,000 MG/250 ML BAG IVPB SCH (03:09)
[2019-12-22] MEDS ORDERED: POTASSIUM CHLORIDE TABS 20 MEQ TABLET.ER (FP) PO ONE (08:30)
[2019-12-22] MEDS: ENOXAPARIN NA (PORCINE) 100 MG/1 ML DISP.SYRIN SQ SCH ×2 (09:14→22:42)
[2019-12-22] MEDS: methylPREDNISolone NA SUCC 40 MG/1 ML VIAL IVPUSH SCH ×2 (09:15→22:43)
[2019-12-22] MEDS: ZINC SULFATE 220 MG CAPSULE (FP) PO SCH (09:15)
[2019-12-22 09:35] LABS: HEMATOCRIT 32.5 % (32.4-45.2); HEMOGLOBIN 10.9 GM/dL (10.7-15.3); MCH 29.9 pg (25.7-33.7); MCHC 33.5 g/dl (32.0-36.0); MEAN CELL VOLUME 89.3 fl (80-96); MEAN PLT VOLUME 7.5 fl (7.5-11.1); PLATELET COUNT 325 K/MM3 (134-434); RBC 3.64 M/mm3 (3.60-5.2); RDW 13.8 % (11.6-15.6); WHITE BLOOD COUNT 15.5 K/mm3 (4.0-10.0)
[2019-12-22 10:09] LABS: ALBUMIN 2.5 g/dl (3.4-5.0); BILIRUBIN,TOTAL 0.7 mg/dL (0.2-1); BLOOD UREA NITROGEN 11.8 mg/dL (7-18); CALCIUM 8.5 mg/dL (8.5-10.1); CREATININE 0.7 mg/dL (0.55-1.3); MAGNESIUM 2.7 mg/dL (1.8-2.4); PHOSPHOROUS 2.4 mg/dL (2.5-4.9); POTASSIUM 3.7 mmol/L (3.5-5.1); TOT PROT 6.9 g/dl (6.4-8.2)
[2019-12-22] MEDS ORDERED: SODIUM CHLORIDE 1,000 ML IV SCH (11:15)
[2019-12-22] MEDS ORDERED: ALPRAZolam 0.25 MG TABLET PO ONE (15:00)
--- NOTE | 2019-12-22 16:08 | CONSULT ---
Consultation: REQUESTING PROVIDER: Hospitalist CONSULT REQUEST: We have been asked to medically evaluate this patient for (specify). HISTORY OF PRESENT ILLNESS: 44 yo F PMH Hodgkins' lymphoma X3 s/p radiation and stem cell transplant in 2011, not on active treatment, appendectomy, cholecystectomy, anxiety, presented with SOB to the ED. As per pt, she felt ill for few days with myalgias and malaise, but over the past 5 days, she has had progressively worsening SOB and SONG, associated with cough, loss of appetite, and fevers/chills. 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 Sister is a known COVID positive. She is tested postive her. She presented sating 68% on RA, then placed on 15L NRB with proning. However, she did not tolerate and needed high flow, but was still desaturating on high flow and ICU was consulted. Denies CP, abd pain, N/V, urinary changes, constipation/diarrhea. REVIEW OF SYSTEMS: Denies CP, abd pain, N/V, urinary changes, constipation/diarrhea. PHYSICAL EXAMINATION Vital Signs - 24 hr 12/21/19 12/21/19 12/21/19 18:20 20:41 20:57 Temperature 99 F 99.3 F Pulse Rate 125 H Pulse Rate [ 122 H Left Radial] Respiratory 24 H 38 H 38 H Rate Blood Pressure 148/76 Blood Pressure 112/69 [Right Arm] O2 Sat by Pulse 94 L 88 L Oximetry (%) 12/21/19 12/21/19 12/22/19 21:00 22:00 02:00 Temperature 100.6 F H 97.4 F L Pulse Rate 108 H 110 H Pulse Rate [ Left Radial] Respiratory 38 H 32 H 28 H Rate Blood Pressure 138/76 129/73 Blood Pressure [Right Arm] O2 Sat by Pulse 93 L 93 L Oximetry (%) 12/22/19 12/22/19 12/22/19 06:00 09:00 09:40 Temperature 97.9 F Pulse Rate 108 H 108 H Pulse Rate [ Left Radial] Respiratory 26 H Rate Blood Pressure 125/65 Blood Pressure [Right Arm] O2 Sat by Pulse 61 L 100 Oximetry (%) 12/22/19 12/22/19 12/22/19 10:22 12:00 14:00 Temperature 97.7 F 98.6 F Pulse Rate 118 H 95 H 116 H Pulse Rate [ Left Radial] Respiratory 24 H 25 H 36 H Rate Blood Pressure 142/93 123/75 135/85 Blood Pressure [Right Arm] O2 Sat by Pulse Oximetry (%) GENERAL: Awake, alert, and fully oriented, in mild Distress, On 40L high flow of 100% o2, Tachypneic EYES: Pupils equal, round and reactive to light, extraocular movements intact, EARS, NOSE, THROAT: Moist mucous membranes. LUNGS: Tachypneic, bilateral coarse breath sounds HEART: Regular rate and rhythm, normal S1 and S2 without murmur, rub or gallop. ABDOMEN: Soft, nontender, not distended, normoactive bowel sounds, no guarding, no rebound, no masses. MUSCULOSKELETAL: No CVA tenderness. UPPER EXTREMITIES: 2+ pulses, warm, well-perfused. No peripheral edema. LOWER EXTREMITIES: 2+ pulses, warm, well-perfused. No peripheral edema. SKIN: Warm, dry Laboratory Results - last 24 hr 12/19/19 12/22/19 12/22/19 13:25 09:00 09:00 WBC 15.5 H RBC 3.64 Hgb 10.9 Hct 32.5 MCV 89.3 MCH 29.9 MCHC 33.5 RDW 13.8 Plt Count 325 MPV 7.5 D-Dimer Sodium 136 Potassium 3.7 Chloride 99 Carbon Dioxide 29 Anion Gap 8 BUN 11.8 Creatinine 0.7 Est GFR (CKD-EPI)AfAm 123.86 Est GFR (CKD-EPI)NonAf 106.87 Random Glucose 162 H Calcium 8.5 Phosphorus 2.4 L Magnesium 2.7 H Total Bilirubin 0.7 AST 49 H ALT 67 H Alkaline Phosphatase 247 H Total Protein 6.9 Albumin 2.5 L COVID-19 (HORACE) Detected H 12/22/19 09:00 WBC RBC Hgb Hct MCV MCH MCHC RDW Plt Count MPV D-Dimer 4295 H Sodium Potassium Chloride Carbon Dioxide Anion Gap BUN Creatinine Est GFR (CKD-EPI)AfAm Est GFR (CKD-EPI)NonAf Random Glucose Calcium Phosphorus Magnesium Total Bilirubin AST ALT Alkaline Phosphatase Total Protein Albumin COVID-19 (HORACE) Active Medications Generic Name Dose Route Start Last Admin Trade Name Freq PRN Reason Stop Dose Admin Acetaminophen 650 mg 12/19/19 17:15 12/21/19 22:50 Tylenol - PO 650 mg Q6H PRN Administration PAIN Albuterol Sulfate 2 puff 12/19/19 17:15 Ventolin Hfa Inhaler - IH Q4H PRN SHORT OF BREATH/WHEEZING Enoxaparin Sodium 90 mg 12/19/19 22:00 12/22/19 09:14 Lovenox - SQ 90 mg BID DARIEL Administration Hydroxychloroquine Sulfate 400 mg 12/20/19 15:00 12/21/19 14:43 Plaquenil - PO Not Given ONCE DARIEL Hydroxychloroquine Sulfate 200 mg 12/21/19 03:00 12/22/19 03:27 Plaquenil - PO 12/24/19 15:01 Not Given BID@0300,1500 DARIEL Piperacillin Sod/Tazobactam 50 mls @ 100 mls/hr 12/20/19 15:00 12/22/19 09:14 Sod 3.375 gm/ Dextrose IVPB 100 mls/hr Q8H-IV DARIEL Administration Protocol Vancomycin HCl 1,000 mg in 250 mls @ 166.667 mls/hr 12/22/19 03:00 12/22/19 03:09 Vancomycin (Pre-Docked) IVPB 12/27/19 04:29 166.667 mls/hr Q12H DARIEL Administration Protocol Methylprednisolone Sodium Succinate 50 mg 12/21/19 22:00 12/22/19 09:15 Solu-Medrol - IVPUSH 50 mg BID DARIEL Administration Morphine Sulfate 1 mg 12/21/19 07:00 Morphine Sulfate IM Q6H PRN PAIN LEVEL 1-5 Zinc Sulfate 220 mg 12/19/19 20:00 12/22/19 09:15 Orazinc - PO 220 mg DAILY DARIEL Administration ASSESSMENT/PLAN: 44 yo F PMH Hodgkins' lymphoma X3 s/p radiation and stem cell transplant in 2011, not on active treatment, appendectomy, cholecystectomy, anxiety, presented with SOB admitted to ICU for worsening Acute hypoxic respiratory failure Called by resident concerning pt who was in moderate to severe respiratory distress desaturating to low 80s. Pt was on NRB but was switched over to HFNC on 100% at 40L but pt kept desaturating. Pt was placed in prone position but still desaturated. ICU was consulted and pt was transferred down to the ICU. In the ICU, pt was placed in prone position and placed on High flow O2 and she improved significantly. She is currently saturating at 92s on HFNC. will monitor pt overnight. Pt report hx of Hodgkins lymphoma x2 treatments currently on remission. #Neuro cont Morphine 1mg Q6H Xanax 0.25 mg for anxiety #Cardio monitor in ICU #Pulm Will continue plaquenil, zinc solumedrol empirically cont vanco + zosyn #Renal Kdur for repletion #DVT ppx cont lovonox Dispo: We will continue to follow the patient. Thank you for this consultative opportunity. Visit type - Emergency Visit Emergency Visit: Yes ED Registration Date: 12/19/19 Care time: The patient presented to the Emergency Department on the above date and was hospitalized for further evaluation of their emergent condition. - New Patient This patient is new to me today: Yes Date on this admission: 12/22/19 - Critical Care Critical Care patient: No ATTENDING PHYSICIAN STATEMENT I saw and evaluated the patient. I reviewed the resident's note and discussed the case with the resident. I agree with the resident's findings and plan as documented. SUBJECTIVE: OBJECTIVE: ASSESSMENT AND PLAN:
--- NOTE | 2019-12-22 16:15 | PN ---
Teaching Attending Note Name of Resident: Vance Harvey ATTENDING PHYSICIAN STATEMENT I saw and evaluated the patient. I reviewed the resident's note and discussed the case with the resident. I agree with the resident's findings and plan as documented. SUBJECTIVE: Pt seen and examined in the ICU. Transferred down this AM for impending respir atory failure. Proned pt with NRB and HFOT 40L/min, 90% FiO2 with improvements in saturations. Pt mentating welll, states breathing is improved with pronation. OBJECTIVE: Vital Signs Period Temp Pulse Resp BP Sys/Rivera Pulse Ox Last 24 Hr 97.4 F-100.6 F 95-125 24-38 112-148/65-93 61-100 Intake & Output 12/19/19 12/20/19 12/21/19 12/22/19 23:59 23:59 23:59 23:59 Intake Total 500 1220 Balance 500 1220 Weight 90.718 kg 90.718 kg Gen: mildly tachypneic at rest Heart: tachycardic, regular Lung: scattered rales Abd: soft, nontender Ext: no edema CBC, BMP 12/22/19 09:00 12/22/19 09:00 Hepatic Panel Total Bilirubin 0.7 mg/dL (0.2-1) 12/22/19 09:00 Direct Bilirubin 0.3 mg/dL (0.0-0.2) H 12/19/19 13:13 AST 49 U/L (15-37) H 12/22/19 09:00 ALT 67 U/L (13-61) H 12/22/19 09:00 Alkaline Phosphatase 247 U/L (45-117) H 12/22/19 09:00 Albumin 2.5 g/dl (3.4-5.0) L 12/22/19 09:00 Active Medications Acetaminophen (Tylenol -) 650 mg PO Q6H PRN PRN Reason: PAIN Last Admin: 12/21/19 22:50 Dose: 650 mg Documented by: Albuterol Sulfate (Ventolin Hfa Inhaler -) 2 puff IH Q4H PRN PRN Reason: SHORT OF BREATH/WHEEZING Enoxaparin Sodium (Lovenox -) 90 mg SQ BID DARIEL Last Admin: 12/22/19 09:14 Dose: 90 mg Documented by: Hydroxychloroquine Sulfate (Plaquenil -) 400 mg PO ONCE [facility] Last Admin: 12/21/19 14:43 Dose: Not Given Documented by: Hydroxychloroquine Sulfate (Plaquenil -) 200 mg PO BID@0300,1500 [facility] Stop: 12/24/19 15:01 Last Admin: 12/22/19 03:27 Dose: Not Given Documented by: Piperacillin Sod/Tazobactam (Sod 3.375 gm/ Dextrose) 50 mls @ 100 mls/hr IVPB Q8H-IV DARIEL; Protocol Last Admin: 12/22/19 09:14 Dose: 100 mls/hr Documented by: Vancomycin HCl (Vancomycin (Pre-Docked)) 1,000 mg in 250 mls @ 166.667 mls/hr IVPB Q12H [facility]; Protocol Stop: 12/27/19 04:29 Last Admin: 12/22/19 03:09 Dose: 166.667 mls/hr Documented by: Methylprednisolone Sodium Succinate (Solu-Medrol -) 50 mg IVPUSH BID [facility] Last Admin: 12/22/19 09:15 Dose: 50 mg Documented by: Morphine Sulfate (Morphine Sulfate) 1 mg IM Q6H PRN PRN Reason: PAIN LEVEL 1-5 Zinc Sulfate (Orazinc -) 220 mg PO DAILY [facility] Last Admin: 12/22/19 09:15 Dose: 220 mg Documented by: ASSESSMENT AND PLAN: Acute Hypoxic Respiratory Failure COVID Pneumonia ARDS Septic Shock Elevated LFTs h/o Hodgkins Lymphoma h/o DVTs - continue antibiotics - f/u cultures - plaquenil course - monitor QTc - empiric steroids - empiric anticoagulation - titrate HFOT to keep SpO2 >90% - continue pronation - continue ICU monitoring critical care time spent in reviewing chart, evaluating patient and formulating plan 35 min
[2019-12-22] MEDS ORDERED: PT OWN MED DRAWER 7, Y5N ONE (21:51)
[2019-12-23] MEDS ORDERED: PIPERACILLIN/TAZOBACTAM 3.375 GM VIAL IVPB ONE ×3 (01:25→15:00)
[2019-12-23] MEDS ORDERED: DEXTROSE 5%-WATER - 50 ML IVPB ONE ×3 (01:25→15:00)
[2019-12-23] MEDS: PIPERACILLIN/TAZOB 3.375 GM 3.375 GM in DEXTROSE 5%-WATER - 50 ML IVPB SCH ×4 (01:39→19:54)
[2019-12-23] MEDS: HYDROXYCHLOROQUINE SO4 200 MG TABLET (FP) PO SCH ×4 (03:00→19:54)
[2019-12-23] MEDS: VANCOMYCIN 1 GRAM (PRE-DOCKED) 1,000 MG/250 ML BAG IVPB SCH ×4 (03:15→19:55)
[2019-12-23 06:51] LABS: ARTERIAL BLD GAS O2 SATURATION 87.4 % (95-98); ARTERIAL BLOOD GAS BASE EXCESS 5.8 mmol/L (-2-2); ARTERIAL BLOOD GAS PCO2 45.5 mmHg (35-45); ARTERIAL BLOOD GAS PO2 56.6 mmHg (80-100); ARTERIAL BLOOD GAS pH 7.44 (7.35-7.45)
[2019-12-23 07:05] LABS: BASO % 0.2 % (0-2.0); HEMATOCRIT 32.2 % (32.4-45.2); HEMOGLOBIN 10.6 GM/dL (10.7-15.3); LYMPH % 1.9 % (8-40); MCH 29.4 pg (25.7-33.7); MCHC 32.9 g/dl (32.0-36.0); MEAN CELL VOLUME 89.5 fl (80-96); MEAN PLT VOLUME 7.7 fl (7.5-11.1); MONO % 2.3 % (3.8-10.2); NEUT % 95.6 % (42.8-82.8); PLATELET COUNT 372 K/MM3 (134-434); RDW 13.7 % (11.6-15.6); WHITE BLOOD COUNT 15.9 K/mm3 (4.0-10.0)
[2019-12-23 07:30] LABS: ALLENS TEST POSITIVE
[2019-12-23 07:42] LABS: ALBUMIN 2.3 g/dl (3.4-5.0); BILIRUBIN,TOTAL 0.6 mg/dL (0.2-1); BLOOD UREA NITROGEN 16.2 mg/dL (7-18); CALCIUM 8.3 mg/dL (8.5-10.1); CREATININE 0.6 mg/dL (0.55-1.3); MAGNESIUM 2.8 mg/dL (1.8-2.4); PHOSPHOROUS 3.1 mg/dL (2.5-4.9); TOT PROT 6.4 g/dl (6.4-8.2)
[2019-12-23] MEDS: ZINC SULFATE 220 MG CAPSULE (FP) PO SCH (09:00)
[2019-12-23] MEDS: methylPREDNISolone NA SUCC 40 MG/1 ML VIAL IVPUSH SCH ×2 (09:01→21:57)
[2019-12-23] MEDS ORDERED: PT OWN MED DRAWER 7, Y5N ONE (09:03)
[2019-12-23] MEDS: ENOXAPARIN NA (PORCINE) 100 MG/1 ML DISP.SYRIN SQ SCH ×2 (09:04→22:53)
[2019-12-23 09:51] LABS: ANISOCYTOSIS 1+; MACROCYTOSIS 0; PLATELET ESTIMATE NORMAL
--- NOTE | 2019-12-23 13:45 | PN ---
Teaching Attending Note Name of Resident: Vance Harvey ATTENDING PHYSICIAN STATEMENT I saw and evaluated the patient. I reviewed the resident's note and discussed the case with the resident. I agree with the resident's findings and plan as documented. SUBJECTIVE: Pt seen and examined in the ICU. Remains proned with good saturations. Placed on CPAP 10/100% FiO2. P/F 57. States breathing improving. OBJECTIVE: Vital Signs Period Temp Pulse Resp BP Sys/Rivera Pulse Ox Last 24 Hr 97.6 F-99.2 F 99-116 22-38 117-166/75-88 88-98 Intake & Output 12/20/19 12/21/19 12/22/19 12/23/19 23:59 23:59 23:59 23:59 Intake Total 500 1670 580 Balance 500 1670 580 Weight 90.718 kg 90.718 kg Gen: mildly tachypneic at rest Heart: tachycardic, regular Lung: scattered rales Abd: soft, nontender Ext: no edema CBC, BMP 12/23/19 05:30 12/23/19 05:30 Hepatic Panel Total Bilirubin 0.6 mg/dL (0.2-1) 12/23/19 05:30 Direct Bilirubin 0.3 mg/dL (0.0-0.2) H 12/19/19 13:13 AST 40 U/L (15-37) H 12/23/19 05:30 ALT 60 U/L (13-61) 12/23/19 05:30 Alkaline Phosphatase 232 U/L (45-117) H 12/23/19 05:30 Albumin 2.3 g/dl (3.4-5.0) L 12/23/19 05:30 ABG Results ABG pH 7.44 (7.35-7.45) 12/23/19 06:05 ABG pCO2 at Pt Temp 45.5 mmHg (35-45) H 12/23/19 06:05 ABG pO2 at Pt Temp 56.6 mmHg (80-100) L 12/23/19 06:05 ABG HCO3 30.3 mmol/L (22-27) H 12/23/19 06:05 ABG O2 Sat (Measured) 87.4 % (95-98) L 12/23/19 06:05 ABG O2 Content 14.8 % vol 12/23/19 06:05 ABG Base Excess 5.8 mmol/L (-2-2) H 12/23/19 06:05 Active Medications Acetaminophen (Tylenol -) 650 mg PO Q6H PRN PRN Reason: PAIN Last Admin: 12/21/19 22:50 Dose: 650 mg Documented by: Albuterol Sulfate (Ventolin Hfa Inhaler -) 2 puff IH Q4H PRN PRN Reason: SHORT OF BREATH/WHEEZING Enoxaparin Sodium (Lovenox -) 90 mg SQ BID [facility] Last Admin: 12/23/19 09:04 Dose: 90 mg Documented by: Hydroxychloroquine Sulfate (Plaquenil -) 400 mg PO ONCE [facility] Last Admin: 12/21/19 14:43 Dose: Not Given Documented by: Hydroxychloroquine Sulfate (Plaquenil -) 200 mg PO BID@0300,1500 [facility] Stop: 12/24/19 15:01 Last Admin: 12/23/19 03:00 Dose: Not Given Documented by: Piperacillin Sod/Tazobactam (Sod 3.375 gm/ Dextrose) 50 mls @ 100 mls/hr IVPB Q8H-IV DARIEL; Protocol Last Admin: 12/23/19 09:01 Dose: 100 mls/hr Documented by: Vancomycin HCl (Vancomycin (Pre-Docked)) 1,000 mg in 250 mls @ 166.667 mls/hr IVPB Q12H [facility]; Protocol Stop: 12/27/19 04:29 Last Admin: 12/23/19 03:15 Dose: 166.667 mls/hr Documented by: Methylprednisolone Sodium Succinate (Solu-Medrol -) 50 mg IVPUSH BID [facility] Last Admin: 12/23/19 09:01 Dose: 50 mg Documented by: Morphine Sulfate (Morphine Sulfate) 1 mg IM Q6H PRN PRN Reason: PAIN LEVEL 1-5 Zinc Sulfate (Orazinc -) 220 mg PO DAILY [facility] Last Admin: 12/23/19 09:00 Dose: 220 mg Documented by: ASSESSMENT AND PLAN: Acute Hypoxic Respiratory Failure COVID Pneumonia ARDS Septic Shock Elevated LFTs h/o Hodgkins Lymphoma h/o DVTs - continue antibiotics - complete plaquenil course - monitor QTc - empiric steroids - empiric anticoagulation - continue CPAP - titrate FiO2 to keep SpO2 >90% - continue pronation - continue ICU monitoring critical care time spent in reviewing chart, evaluating patient and formulating plan 35 min
--- NOTE | 2019-12-23 19:59 | PN ---
Physical Exam: SUBJECTIVE: Patient seen and examined. Pt much more improved today on HFNC at 40L and 94%. Switched to CPAP. Pt is tolerating diet and making urine. She stable overnight, no issues. Afebrile. Refusing plaquenil therapy as pt believes treatment is futile. I explained the risks and benefits of d/cing plaquenil. OBJECTIVE: Vital Signs Period Temp Pulse Resp BP Sys/Rivera Pulse Ox Last 24 Hr 97.6 F-99.2 F 99-115 22-44 117-166/75-88 88-98 GENERAL: The patient is awake, alert, and fully oriented, in no acute distress. HEAD: Normal with no signs of trauma. EYES: PERRL, extraocular movements intact, sclera anicteric, conjunctiva clear. No ptosis. ENT: Ears normal, nares patent, oropharynx clear without exudates, moist mucous membranes. NECK: Trachea midline, full range of motion, supple. LUNGS: Breath sounds equal, clear to auscultation bilaterally, no wheezes, no crackles, no accessory muscle use. HEART: Regular rate and rhythm, S1, S2 without murmur, rub or gallop. ABDOMEN: Soft, nontender, nondistended, normoactive bowel sounds, no guarding, no rebound, no hepatosplenomegaly, no masses. EXTREMITIES: 2+ pulses, warm, well-perfused, no edema. NEUROLOGICAL: Cranial nerves II through XII grossly intact. Normal speech, gait not observed. PSYCH: Normal mood, normal affect. SKIN: Warm, dry, normal turgor, no rashes or lesions noted Laboratory Results - last 24 hr 12/23/19 12/23/19 12/23/19 05:30 05:30 05:30 WBC 15.9 H RBC 3.60 Hgb 10.6 L Hct 32.2 L MCV 89.5 MCH 29.4 MCHC 32.9 RDW 13.7 Plt Count 372 MPV 7.7 Absolute Neuts (auto) 15.2 H Neutrophils % 95.6 H Neutrophils % (Manual) 97.0 H Band Neutrophils % 2.0 Lymphocytes % 1.9 L D Lymphocytes % (Manual) 0.0 L Monocytes % 2.3 L Monocytes % (Manual) 0 L Eosinophils % 0.0 D Eosinophils % (Manual) 0.0 Basophils % 0.2 Basophils % (Manual) 0.0 Myelocytes % (Man) 1 Promyelocytes % (Man) 0 Blast Cells % (Manual) 0 Nucleated RBC % 0 Metamyelocytes 0 Hypochromia 0 Platelet Estimate Normal Polychromasia 1+ Poikilocytosis 0 Anisocytosis 1+ Microcytosis 0 Macrocytosis 0 D-Dimer 4383 H Anticoagulation Therapy Puncture Site ABG pH ABG pCO2 at Pt Temp ABG pO2 at Pt Temp ABG HCO3 ABG O2 Sat (Measured) ABG O2 Content ABG Base Excess Lake Test Patient On Oxygen O2 Delivery Device Oxygen Flow Rate Vent Mode Vent Rate Mechanical Rate Pressure Support Vent Sodium 137 Potassium 4.0 Chloride 99 Carbon Dioxide 31 Anion Gap 7 L BUN 16.2 Creatinine 0.6 Est GFR (CKD-EPI)AfAm 130.30 Est GFR (CKD-EPI)NonAf 112.42 Random Glucose 149 H Lactic Acid Calcium 8.3 L Phosphorus 3.1 Magnesium 2.8 H Ferritin 782.0 H Total Bilirubin 0.6 AST 40 H ALT 60 Alkaline Phosphatase 232 H C-Reactive Protein 18.4 H Total Protein 6.4 Albumin 2.3 L 12/23/19 12/23/19 05:30 06:05 WBC RBC Hgb Hct MCV MCH MCHC RDW Plt Count MPV Absolute Neuts (auto) Neutrophils % Neutrophils % (Manual) Band Neutrophils % Lymphocytes % Lymphocytes % (Manual) Monocytes % Monocytes % (Manual) Eosinophils % Eosinophils % (Manual) Basophils % Basophils % (Manual) Myelocytes % (Man) Promyelocytes % (Man) Blast Cells % (Manual) Nucleated RBC % Metamyelocytes Hypochromia Platelet Estimate Polychromasia Poikilocytosis Anisocytosis Microcytosis Macrocytosis D-Dimer Anticoagulation Therapy No Result Required. Puncture Site Right radial ABG pH 7.44 ABG pCO2 at Pt Temp 45.5 H ABG pO2 at Pt Temp 56.6 L ABG HCO3 30.3 H ABG O2 Sat (Measured) 87.4 L ABG O2 Content 14.8 ABG Base Excess 5.8 H Lake Test Positive Patient On Oxygen Yes O2 Delivery Device Vent Oxygen Flow Rate 95% Vent Mode No Result Required. Vent Rate No Result Required. Mechanical Rate Yes Pressure Support Vent No Result Required. Sodium Potassium Chloride Carbon Dioxide Anion Gap BUN Creatinine Est GFR (CKD-EPI)AfAm Est GFR (CKD-EPI)NonAf Random Glucose Lactic Acid 1.3 Calcium Phosphorus Magnesium Ferritin Total Bilirubin AST ALT Alkaline Phosphatase C-Reactive Protein Total Protein Albumin Active Medications Generic Name Dose Route Start Last Admin Trade Name Freq PRN Reason Stop Dose Admin Acetaminophen 650 mg 12/19/19 17:15 12/21/19 22:50 Tylenol - PO 650 mg Q6H PRN Administration PAIN Albuterol Sulfate 2 puff 12/19/19 17:15 Ventolin Hfa Inhaler - IH Q4H PRN SHORT OF BREATH/WHEEZING Enoxaparin Sodium 90 mg 12/19/19 22:00 12/23/19 09:04 Lovenox - SQ 90 mg BID DARIEL Administration Hydroxychloroquine Sulfate 400 mg 12/20/19 15:00 12/23/19 16:43 Plaquenil - PO Not Given ONCE [facility] Hydroxychloroquine Sulfate 200 mg 12/21/19 03:00 12/23/19 16:44 Plaquenil - PO 12/24/19 15:01 Not Given BID@0300,1500 [facility] Piperacillin Sod/Tazobactam 50 mls @ 100 mls/hr 12/20/19 15:00 12/23/19 17:16 Sod 3.375 gm/ Dextrose IVPB 100 mls/hr Q8H-IV [facility] Administration Protocol Vancomycin HCl 1,000 mg in 250 mls @ 166.667 mls/hr 12/22/19 03:00 12/23/19 15:23 Vancomycin (Pre-Docked) IVPB 12/27/19 04:29 166.667 mls/hr Q12H [facility] Administration Protocol Methylprednisolone Sodium Succinate 50 mg 12/21/19 22:00 12/23/19 09:01 Solu-Medrol - IVPUSH 50 mg BID [facility] Administration Morphine Sulfate 1 mg 12/21/19 07:00 Morphine Sulfate IM Q6H PRN PAIN LEVEL 1-5 Zinc Sulfate 220 mg 12/19/19 20:00 12/23/19 09:00 Orazinc - PO 220 mg DAILY [facility] Administration ASSESSMENT/PLAN: 44 yo F PMH Hodgkins' lymphoma X3 s/p radiation and stem cell transplant in 2011, not on active treatment, appendectomy, cholecystectomy, anxiety, presented with SOB admitted to ICU for worsening Acute hypoxic respiratory failure #Neuro cont Morphine 1mg Q6H Xanax 0.25 mg for anxiety #Cardio monitor in ICU #Pulm Will continue plaquenil, zinc solumedrol empirically cont vanco + zosyn Placed on CPAP 10/100% FiO2. P/F ratio today 57 #ID vanc and zosyn pt refuses Plaquenil #Renal Kdur for repletion #ppx DVT ppx: cont lovonox GI ppx: protonix #Lines Central L IJ removed- 12/22 Peripheral lines placed #codes full code #FEN monitor lytes regular diet Dispo: monitor O2 sat, maintain SO2 >90, cont CPAP Visit type - Emergency Visit Emergency Visit: Yes ED Registration Date: 12/19/19 Care time: The patient presented to the Emergency Department on the above date and was hospitalized for further evaluation of their emergent condition. - New Patient This patient is new to me today: Yes Date on this admission: 12/29/19 - Critical Care Critical Care patient: No - Discharge Referral Referred to [facility] Med [facility] No ATTENDING PHYSICIAN STATEMENT I saw and evaluated the patient. I reviewed the resident's note and discussed the case with the resident. I agree with the resident's findings and plan as documented. SUBJECTIVE: OBJECTIVE: ASSESSMENT AND PLAN:
[2019-12-24] MEDS ORDERED: PIPERACILLIN/TAZOBACTAM 3.375 GM VIAL IVPB ONE ×3 (02:09→16:11)
[2019-12-24] MEDS ORDERED: DEXTROSE 5%-WATER - 50 ML IVPB ONE ×2 (02:09→09:18)
[2019-12-24] MEDS: PIPERACILLIN/TAZOB 3.375 GM 3.375 GM in DEXTROSE 5%-WATER - 50 ML IVPB SCH ×4 (02:22→17:51)
[2019-12-24] MEDS: HYDROXYCHLOROQUINE SO4 200 MG TABLET (FP) PO SCH ×3 (02:39→16:49)
[2019-12-24] MEDS: VANCOMYCIN 1 GRAM (PRE-DOCKED) 1,000 MG/250 ML BAG IVPB SCH ×2 (03:32→14:51)
[2019-12-24 07:33] LABS: ALBUMIN 2.2 g/dl (3.4-5.0); BILIRUBIN,TOTAL 0.6 mg/dL (0.2-1); BLOOD UREA NITROGEN 15.5 mg/dL (7-18); CALCIUM 8.1 mg/dL (8.5-10.1); CREATININE 0.7 mg/dL (0.55-1.3); MAGNESIUM 2.4 mg/dL (1.8-2.4); PHOSPHOROUS 2.9 mg/dL (2.5-4.9); POTASSIUM 4.4 mmol/L (3.5-5.1); TOT PROT 6.6 g/dl (6.4-8.2)
[2019-12-24 07:37] LABS: BASO % 0.2 % (0-2.0); HEMATOCRIT 31.8 % (32.4-45.2); HEMOGLOBIN 10.6 GM/dL (10.7-15.3); LYMPH % 2.6 % (8-40); MCH 29.8 pg (25.7-33.7); MCHC 33.5 g/dl (32.0-36.0); MEAN PLT VOLUME 7.4 fl (7.5-11.1); MONO % 3.5 % (3.8-10.2); NEUT % 93.7 % (42.8-82.8); PLATELET COUNT 368 K/MM3 (134-434); RBC 3.57 M/mm3 (3.60-5.2); RDW 13.7 % (11.6-15.6); WHITE BLOOD COUNT 13.9 K/mm3 (4.0-10.0)
[2019-12-24] MEDS ORDERED: PT OWN MED DRAWER 7, Y5N ONE ×2 (09:19→21:38)
[2019-12-24] MEDS: ENOXAPARIN NA (PORCINE) 100 MG/1 ML DISP.SYRIN SQ SCH ×2 (09:59→21:39)
[2019-12-24] MEDS: methylPREDNISolone NA SUCC 40 MG/1 ML VIAL IVPUSH SCH ×2 (10:01→21:39)
[2019-12-24] MEDS: ZINC SULFATE 220 MG CAPSULE (FP) PO SCH (10:02)
--- NOTE | 2019-12-24 11:56 | PN ---
Progress Note (short form) - Note Progress Note: PULMONARY/CCM Pt seen and examined in the ICU. Remains on CPAP 10/100% FiO2. States breathing slightly improving. Did not tolerate NRB, desaturating to 50s quickly. OBJECTIVE: Vital Signs Period Temp Pulse Resp BP Sys/Rivera Pulse Ox Last 24 Hr 97.7 F-98.5 F 99-108 26-53 118-166/75-92 92-96 Intake & Output 12/21/19 12/22/19 12/23/19 12/24/19 23:59 23:59 23:59 23:59 Intake Total 500 1670 1565 810 Balance 500 1670 1565 810 Weight 90.718 kg 90.718 kg Gen: tachypneic on CPAP Heart: tachycardic, regular Lung: scattered rales Abd: soft, nontender Ext: no edema CBC, BMP 12/24/19 05:30 12/24/19 05:30 Hepatic Panel Total Bilirubin 0.6 mg/dL (0.2-1) 12/24/19 05:30 Direct Bilirubin 0.3 mg/dL (0.0-0.2) H 12/19/19 13:13 AST 32 U/L (15-37) 12/24/19 05:30 ALT 51 U/L (13-61) 12/24/19 05:30 Alkaline Phosphatase 221 U/L (45-117) H 12/24/19 05:30 Albumin 2.2 g/dl (3.4-5.0) L 12/24/19 05:30 ABG Results ABG pH 7.44 (7.35-7.45) 12/23/19 06:05 ABG pCO2 at Pt Temp 45.5 mmHg (35-45) H 12/23/19 06:05 ABG pO2 at Pt Temp 56.6 mmHg (80-100) L 12/23/19 06:05 ABG HCO3 30.3 mmol/L (22-27) H 12/23/19 06:05 ABG O2 Sat (Measured) 87.4 % (95-98) L 12/23/19 06:05 ABG O2 Content 14.8 % vol 12/23/19 06:05 ABG Base Excess 5.8 mmol/L (-2-2) H 12/23/19 06:05 Active Medications Acetaminophen (Tylenol -) 650 mg PO Q6H PRN PRN Reason: PAIN Last Admin: 12/21/19 22:50 Dose: 650 mg Documented by: Albuterol Sulfate (Ventolin Hfa Inhaler -) 2 puff IH Q4H PRN PRN Reason: SHORT OF BREATH/WHEEZING Enoxaparin Sodium (Lovenox -) 90 mg SQ BID [facility] Last Admin: 12/24/19 09:59 Dose: 90 mg Documented by: Hydroxychloroquine Sulfate (Plaquenil -) 400 mg PO ONCE [facility] Last Admin: 12/23/19 19:54 Dose: Not Given Documented by: Hydroxychloroquine Sulfate (Plaquenil -) 200 mg PO BID@0300,1500 [facility] Stop: 12/24/19 15:01 Last Admin: 12/24/19 02:39 Dose: Not Given Documented by: Piperacillin Sod/Tazobactam (Sod 3.375 gm/ Dextrose) 50 mls @ 100 mls/hr IVPB Q8H-IV DARIEL; Protocol Last Admin: 12/24/19 10:01 Dose: 100 mls/hr Documented by: Vancomycin HCl (Vancomycin (Pre-Docked)) 1,000 mg in 250 mls @ 166.667 mls/hr IVPB Q12H [facility]; Protocol Stop: 12/27/19 04:29 Last Admin: 12/24/19 03:32 Dose: 166.667 mls/hr Documented by: Methylprednisolone Sodium Succinate (Solu-Medrol -) 50 mg IVPUSH BID [facility] Last Admin: 12/24/19 10:01 Dose: 50 mg Documented by: Zinc Sulfate (Orazinc -) 220 mg PO DAILY [facility] Last Admin: 12/24/19 10:02 Dose: 220 mg Documented by: ASSESSMENT AND PLAN: Acute Hypoxic Respiratory Failure COVID Pneumonia ARDS Septic Shock Elevated LFTs h/o Hodgkins Lymphoma h/o DVTs - continue antibiotics - complete plaquenil course - monitor QTc - empiric steroids - empiric anticoagulation - continue CPAP - titrate FiO2 to keep SpO2 >90% - continue ICU monitoring for tenuous respiratory status critical care time spent in reviewing chart, evaluating patient and formulating plan 35 min
[2019-12-24 13:00] LABS: ANISOCYTOSIS 2+; MACROCYTOSIS 1+; OVALOCYTE 1+
[2019-12-24 13:16] LABS: PLATELET ESTIMATE ADEQUATE
[2019-12-25] MEDS ORDERED: DEXTROSE 5%-WATER - 50 ML IVPB ONE ×3 (01:04→15:22)
[2019-12-25] MEDS ORDERED: PIPERACILLIN/TAZOBACTAM 3.375 GM VIAL IVPB ONE ×3 (01:04→15:22)
[2019-12-25] MEDS: PIPERACILLIN/TAZOB 3.375 GM 3.375 GM in DEXTROSE 5%-WATER - 50 ML IVPB SCH ×3 (01:31→20:38)
[2019-12-25] MEDS: VANCOMYCIN 1 GRAM (PRE-DOCKED) 1,000 MG/250 ML BAG IVPB SCH ×2 (03:13→15:47)
[2019-12-25 07:30] LABS: BASO % 0.2 % (0-2.0); EOS % 0.1 % (0-4.5); HEMATOCRIT 33.8 % (32.4-45.2); HEMOGLOBIN 11.2 GM/dL (10.7-15.3); LYMPH % 3.4 % (8-40); MCH 29.8 pg (25.7-33.7); MCHC 33.1 g/dl (32.0-36.0); MEAN CELL VOLUME 89.9 fl (80-96); MEAN PLT VOLUME 7.4 fl (7.5-11.1); MONO % 2.6 % (3.8-10.2); NEUT % 93.7 % (42.8-82.8); PLATELET COUNT 396 K/MM3 (134-434); RBC 3.76 M/mm3 (3.60-5.2); RDW 13.8 % (11.6-15.6); WHITE BLOOD COUNT 13.1 K/mm3 (4.0-10.0)
[2019-12-25 08:17] LABS: ALBUMIN 2.3 g/dl (3.4-5.0); BILIRUBIN,TOTAL 0.7 mg/dL (0.2-1); BLOOD UREA NITROGEN 14.1 mg/dL (7-18); CALCIUM 8.4 mg/dL (8.5-10.1); CREATININE 0.6 mg/dL (0.55-1.3); MAGNESIUM 2.5 mg/dL (1.8-2.4); PHOSPHOROUS 3.2 mg/dL (2.5-4.9); POTASSIUM 4.9 mmol/L (3.5-5.1); TOT PROT 6.7 g/dl (6.4-8.2)
[2019-12-25 10:12] LABS: ANISOCYTOSIS 0; MACROCYTOSIS 0; PLATELET ESTIMATE NORMAL
[2019-12-25] MEDS: methylPREDNISolone NA SUCC 40 MG/1 ML VIAL IVPUSH SCH ×2 (10:43→22:06)
[2019-12-25] MEDS: ZINC SULFATE 220 MG CAPSULE (FP) PO SCH (10:44)
[2019-12-25] MEDS: ENOXAPARIN NA (PORCINE) 100 MG/1 ML DISP.SYRIN SQ SCH ×2 (10:44→22:05)
--- NOTE | 2019-12-25 11:05 | PN ---
Progress Note (short form) - Note Progress Note: PULMONARY/CCM Pt seen and examined in the ICU. Remains on CPAP 10/100% FiO2. States breathing slightly improving. OBJECTIVE: Vital Signs Period Temp Pulse Resp BP Sys/Rivera Pulse Ox Last 24 Hr 99 F-99.3 F 106-115 24-47 124-141/85-97 90-93 Intake & Output 12/22/19 12/23/19 12/24/19 12/25/19 23:59 23:59 23:59 23:59 Intake Total 1670 1565 1050 761 Output Total 400 700 Balance 1670 1565 650 61 Weight 90.718 kg Gen: tachypneic on CPAP Heart: tachycardic, regular Lung: scattered rales Abd: soft, nontender Ext: no edema CBC, BMP 12/25/19 05:25 12/25/19 05:25 Hepatic Panel Total Bilirubin 0.7 mg/dL (0.2-1) 12/25/19 05:25 Direct Bilirubin 0.3 mg/dL (0.0-0.2) H 12/19/19 13:13 AST 35 U/L (15-37) 12/25/19 05:25 ALT 52 U/L (13-61) 12/25/19 05:25 Alkaline Phosphatase 230 U/L (45-117) H 12/25/19 05:25 Albumin 2.3 g/dl (3.4-5.0) L 12/25/19 05:25 ABG Results ABG pH 7.44 (7.35-7.45) 12/23/19 06:05 ABG pCO2 at Pt Temp 45.5 mmHg (35-45) H 12/23/19 06:05 ABG pO2 at Pt Temp 56.6 mmHg (80-100) L 12/23/19 06:05 ABG HCO3 30.3 mmol/L (22-27) H 12/23/19 06:05 ABG O2 Sat (Measured) 87.4 % (95-98) L 12/23/19 06:05 ABG O2 Content 14.8 % vol 12/23/19 06:05 ABG Base Excess 5.8 mmol/L (-2-2) H 12/23/19 06:05 Active Medications Acetaminophen (Tylenol -) 650 mg PO Q6H PRN PRN Reason: PAIN Last Admin: 12/21/19 22:50 Dose: 650 mg Documented by: Albuterol Sulfate (Ventolin Hfa Inhaler -) 2 puff IH Q4H PRN PRN Reason: SHORT OF BREATH/WHEEZING Enoxaparin Sodium (Lovenox -) 90 mg SQ BID [facility] Last Admin: 12/25/19 10:44 Dose: 90 mg Documented by: Hydroxychloroquine Sulfate (Plaquenil -) 400 mg PO ONCE [facility] Last Admin: 12/24/19 16:15 Dose: Not Given Documented by: Piperacillin Sod/Tazobactam (Sod 3.375 gm/ Dextrose) 50 mls @ 100 mls/hr IVPB Q8H-IV DARIEL; Protocol Last Admin: 12/25/19 10:43 Dose: 100 mls/hr Documented by: Vancomycin HCl (Vancomycin (Pre-Docked)) 1,000 mg in 250 mls @ 166.667 mls/hr IVPB Q12H [facility]; Protocol Stop: 12/27/19 04:29 Last Admin: 12/25/19 03:13 Dose: 166.667 mls/hr Documented by: Methylprednisolone Sodium Succinate (Solu-Medrol -) 50 mg IVPUSH BID [facility] Last Admin: 12/25/19 10:43 Dose: 50 mg Documented by: Zinc Sulfate (Orazinc -) 220 mg PO DAILY [facility] Last Admin: 12/25/19 10:44 Dose: 220 mg Documented by: ASSESSMENT AND PLAN: Acute Hypoxic Respiratory Failure COVID Pneumonia ARDS Septic Shock Elevated LFTs h/o Hodgkins Lymphoma h/o DVTs - continue antibiotics - complete plaquenil course - monitor QTc - empiric steroids - empiric anticoagulation - continue CPAP - titrate FiO2 to keep SpO2 >90% - continue ICU monitoring for tenuous respiratory status critical care time spent in reviewing chart, evaluating patient and formulating plan 35 min
[2019-12-25] MEDS: HYDROXYCHLOROQUINE SO4 200 MG TABLET (FP) PO SCH (15:47)
[2019-12-26] MEDS: PIPERACILLIN/TAZOB 3.375 GM 3.375 GM in DEXTROSE 5%-WATER - 50 ML IVPB SCH ×3 (02:55→20:12)
[2019-12-26] MEDS ORDERED: PIPERACILLIN/TAZOBACTAM 3.375 GM VIAL IVPB ONE ×3 (02:59→19:30)
[2019-12-26] MEDS ORDERED: DEXTROSE 5%-WATER - 50 ML IVPB ONE ×3 (02:59→19:30)
[2019-12-26] MEDS: VANCOMYCIN 1 GRAM (PRE-DOCKED) 1,000 MG/250 ML BAG IVPB SCH ×2 (03:19→14:13)
[2019-12-26 08:12] LABS: BASO % 0.3 % (0-2.0); HEMATOCRIT 34.3 % (32.4-45.2); HEMOGLOBIN 11.3 GM/dL (10.7-15.3); LYMPH % 3.8 % (8-40); MCH 29.4 pg (25.7-33.7); MCHC 32.9 g/dl (32.0-36.0); MEAN CELL VOLUME 89.5 fl (80-96); MEAN PLT VOLUME 7.4 fl (7.5-11.1); MONO % 2.8 % (3.8-10.2); NEUT % 93.1 % (42.8-82.8); PLATELET COUNT 407 K/MM3 (134-434); RBC 3.84 M/mm3 (3.60-5.2); RDW 13.7 % (11.6-15.6); WHITE BLOOD COUNT 14.1 K/mm3 (4.0-10.0)
[2019-12-26 08:51] LABS: ALBUMIN 2.4 g/dl (3.4-5.0); BILIRUBIN,TOTAL 0.6 mg/dL (0.2-1); CALCIUM 8.5 mg/dL (8.5-10.1); CREATININE 0.6 mg/dL (0.55-1.3); MAGNESIUM 2.5 mg/dL (1.8-2.4); PHOSPHOROUS 3.6 mg/dL (2.5-4.9); POTASSIUM 4.9 mmol/L (3.5-5.1); TOT PROT 6.9 g/dl (6.4-8.2)
[2019-12-26 09:25] LABS: ANISOCYTOSIS 0; MACROCYTOSIS 0; PLATELET ESTIMATE NORMAL
[2019-12-26] MEDS: ENOXAPARIN NA (PORCINE) 100 MG/1 ML DISP.SYRIN SQ SCH ×2 (09:45→22:02)
[2019-12-26] MEDS: methylPREDNISolone NA SUCC 40 MG/1 ML VIAL IVPUSH SCH ×2 (09:50→22:03)
[2019-12-26] MEDS: ZINC SULFATE 220 MG CAPSULE (FP) PO SCH (09:51)
[2019-12-26] MEDS ORDERED: ALPRAZolam 0.25 MG TABLET PO PRN (10:41)
--- NOTE | 2019-12-26 12:35 | PN ---
Teaching Attending Note Name of Resident: Armani Donald ATTENDING PHYSICIAN STATEMENT I saw and evaluated the patient. I reviewed the resident's note and discussed the case with the resident. I agree with the resident's findings and plan as documented. PULMONARY/CCM Pt seen and examined in the ICU. Remains on CPAP 10/100% FiO2. States breathing slightly better than yesterday. OBJECTIVE: Vital Signs Period Temp Pulse Resp BP Sys/Rivera Pulse Ox Last 24 Hr 97.3 F-99.1 F 93-118 34-48 101-129/68-94 88-94 Intake & Output 12/23/19 12/24/19 12/25/19 12/26/19 23:59 23:59 23:59 23:59 Intake Total 1565 1050 2251 590 Output Total 400 2300 350 Balance 1565 650 -49 240 Weight 90.718 kg 90.718 kg Gen: tachypneic on CPAP Heart: tachycardic, regular Lung: scattered rales Abd: soft, nontender Ext: no edema CBC, BMP 12/26/19 06:36 12/26/19 06:36 Hepatic Panel Total Bilirubin 0.6 mg/dL (0.2-1) 12/26/19 06:36 Direct Bilirubin 0.3 mg/dL (0.0-0.2) H 12/19/19 13:13 AST 31 U/L (15-37) 12/26/19 06:36 ALT 57 U/L (13-61) 12/26/19 06:36 Alkaline Phosphatase 239 U/L (45-117) H 12/26/19 06:36 Albumin 2.4 g/dl (3.4-5.0) L 12/26/19 06:36 ABG Results ABG pH 7.44 (7.35-7.45) 12/23/19 06:05 ABG pCO2 at Pt Temp 45.5 mmHg (35-45) H 12/23/19 06:05 ABG pO2 at Pt Temp 56.6 mmHg (80-100) L 12/23/19 06:05 ABG HCO3 30.3 mmol/L (22-27) H 12/23/19 06:05 ABG O2 Sat (Measured) 87.4 % (95-98) L 12/23/19 06:05 ABG O2 Content 14.8 % vol 12/23/19 06:05 ABG Base Excess 5.8 mmol/L (-2-2) H 12/23/19 06:05 Active Medications Acetaminophen (Tylenol -) 650 mg PO Q6H PRN PRN Reason: PAIN Last Admin: 12/21/19 22:50 Dose: 650 mg Documented by: Albuterol Sulfate (Ventolin Hfa Inhaler -) 2 puff IH Q4H PRN PRN Reason: SHORT OF BREATH/WHEEZING Alprazolam (Xanax -) 0.25 mg PO Q6H PRN PRN Reason: ANXIETY Enoxaparin Sodium (Lovenox -) 90 mg SQ BID [facility] Last Admin: 12/26/19 09:45 Dose: 90 mg Documented by: Hydroxychloroquine Sulfate (Plaquenil -) 400 mg PO ONCE [facility] Last Admin: 12/25/19 15:47 Dose: Not Given Documented by: Piperacillin Sod/Tazobactam (Sod 3.375 gm/ Dextrose) 50 mls @ 100 mls/hr IVPB Q8H-IV [facility]ARIEL; Protocol Last Admin: 12/26/19 09:49 Dose: 100 mls/hr Documented by: Vancomycin HCl (Vancomycin (Pre-Docked)) 1,000 mg in 250 mls @ 166.667 mls/hr IVPB Q12H [facility]; Protocol Stop: 12/27/19 04:29 Last Admin: 12/26/19 03:19 Dose: 166.667 mls/hr Documented by: Lactobacillus Acidophilus (Bacid -) 1 tab PO DAILY [facility] Methylprednisolone Sodium Succinate (Solu-Medrol -) 50 mg IVPUSH BID [facility] Last Admin: 12/26/19 09:50 Dose: 50 mg Documented by: Zinc Sulfate (Orazinc -) 220 mg PO DAILY [facility] Last Admin: 12/26/19 09:51 Dose: 220 mg Documented by: ASSESSMENT AND PLAN: Acute Hypoxic Respiratory Failure COVID Pneumonia ARDS Septic Shock Elevated LFTs h/o Hodgkins Lymphoma h/o DVTs - pt considering convalescent plasma - continue antibiotics - complete plaquenil course - monitor QTc - empiric steroids - empiric anticoagulation - continue CPAP - titrate FiO2 to keep SpO2 >90% - continue ICU monitoring for tenuous respiratory status critical care time spent in reviewing chart, evaluating patient and formulating plan 35 min
--- NOTE | 2019-12-26 12:36 | PN ---
Physical Exam: SUBJECTIVE: Patient seen NAEON. Pt having poor appetite, poor PO intake On CPAP. When asked about consenting to receive convalescene plasma, pt was unsure. OBJECTIVE: Vital Signs Period Temp Pulse Resp BP Sys/Rivera Pulse Ox Last 24 Hr 97.3 F-99.1 F 93-118 34-48 101-129/68-94 88-94 PE: as per ICU attending. Priority is to conserve PPE at this time CPAP 320/320/450/100 PIP10 UOP 1950 via [place] EKG QTc 486 Laboratory Results - last 24 hr 12/26/19 12/26/19 06:36 06:36 WBC 14.1 H RBC 3.84 Hgb 11.3 Hct 34.3 MCV 89.5 MCH 29.4 MCHC 32.9 RDW 13.7 Plt Count 407 MPV 7.4 L Absolute Neuts (auto) 13.1 H Neutrophils % 93.1 H Neutrophils % (Manual) 86.9 H Band Neutrophils % 1.0 Lymphocytes % 3.8 L Lymphocytes % (Manual) 8.1 D Monocytes % 2.8 L Monocytes % (Manual) 2 L Eosinophils % 0.0 D Eosinophils % (Manual) 0.0 Basophils % 0.3 Basophils % (Manual) 0.0 Myelocytes % (Man) 1 D Promyelocytes % (Man) 0 Blast Cells % (Manual) 0 Nucleated RBC % 0 Metamyelocytes 1 D Hypochromia 0 Platelet Estimate Normal Polychromasia 0 Poikilocytosis 0 Anisocytosis 0 Microcytosis 0 Macrocytosis 0 Sodium 137 Potassium 4.9 Chloride 99 Carbon Dioxide 30 Anion Gap 8 BUN 16.0 Creatinine 0.6 Est GFR (CKD-EPI)AfAm 130.30 Est GFR (CKD-EPI)NonAf 112.42 Random Glucose 133 H Calcium 8.5 Phosphorus 3.6 Magnesium 2.5 H Ferritin 647.1 H Total Bilirubin 0.6 AST 31 ALT 57 Alkaline Phosphatase 239 H LD Total 564 H C-Reactive Protein 10.3 H Total Protein 6.9 Albumin 2.4 L Active Medications Generic Name Dose Route Start Last Admin Trade Name Freq PRN Reason Stop Dose Admin Acetaminophen 650 mg 12/19/19 17:15 12/21/19 22:50 Tylenol - PO 650 mg Q6H PRN Administration PAIN Albuterol Sulfate 2 puff 12/19/19 17:15 Ventolin Hfa Inhaler - IH Q4H PRN SHORT OF BREATH/WHEEZING Alprazolam 0.25 mg 12/26/19 10:41 Xanax - PO Q6H PRN ANXIETY Enoxaparin Sodium 90 mg 12/19/19 22:00 12/26/19 09:45 Lovenox - SQ 90 mg BID [facility]EL Administration Hydroxychloroquine Sulfate 400 mg 12/20/19 15:00 12/25/19 15:47 Plaquenil - PO Not Given ONCE [facility] Piperacillin Sod/Tazobactam 50 mls @ 100 mls/hr 12/20/19 15:00 12/26/19 09:49 Sod 3.375 gm/ Dextrose IVPB 100 mls/hr Q8H-IV [facility] Administration Protocol Vancomycin HCl 1,000 mg in 250 mls @ 166.667 mls/hr 12/22/19 03:00 12/26/19 03:19 Vancomycin (Pre-Docked) IVPB 12/27/19 04:29 166.667 mls/hr Q12H [facility] Administration Protocol Lactobacillus Acidophilus 1 tab 12/26/19 10:45 Bacid - PO DAILY [facility] Methylprednisolone Sodium Succinate 50 mg 12/21/19 22:00 12/26/19 09:50 Solu-Medrol - IVPUSH 50 mg BID [facility] Administration Zinc Sulfate 220 mg 12/19/19 20:00 12/26/19 09:51 Orazinc - PO 220 mg DAILY [facility] Administration ASSESSMENT/PLAN: 44 yo F PMH Hodgkins' lymphoma X3 s/p radiation and stem cell transplant in 2011, not on active treatment, appendectomy, cholecystectomy, anxiety, presented with SOB admitted to ICU for worsening Acute hypoxic respiratory failure. Was on pressor support, off since 12/21/19. Was downgraded to MedSurg, but desaturated with HFNC. Transferred back to ICU for close monitoring on CPAP #Neuro Xanax 0.25mg q6h for anxiety #Cardio off pressors since 12/21/19 monitor in ICU #Pulm Will continue plaquenil, zinc solumedrol empirically(12/20 - current) cont vanco(d2) + zosyn(d6) Placed on CPAP 10/100% FiO2. #ID vanc and zosyn cw Plaquenil #Renal UOP 1950 --adequate Cr 0.6 #FEN encourage PO intake monitor lytes regular diet #ppx DVT ppx: cont lovonox 90mg BIX GI ppx: protonix QD #Lines Central L IJ removed- 12/22 Peripheral lines placed #codes full code Visit type - Emergency Visit Emergency Visit: No - New Patient This patient is new to me today: Yes Date on this admission: 12/26/19 - Critical Care Critical Care patient: Yes Total Critical Care Time (in minutes): 35 Critical Care Statement: The care of this patient involved high complexity decision making to prevent further life threatening deterioration of the patient's condition and/or to evaluate & treat vital organ system(s) failure or risk of failure. ATTENDING PHYSICIAN STATEMENT I saw and evaluated the patient. I reviewed the resident's note and discussed the case with the resident. I agree with the resident's findings and plan as documented. SUBJECTIVE: OBJECTIVE: ASSESSMENT AND PLAN:
[2019-12-26] MEDS ORDERED: DEXTROSE 5%-LACTATED RINGERS 1,000 ML IV SCH (13:30)
[2019-12-26] MEDS: LACTOBACILLUS ACIDOPHILUS 1 TABLET PO SCH (14:13)
[2019-12-26] MEDS: HYDROXYCHLOROQUINE SO4 200 MG TABLET (FP) PO SCH (14:15)
[2019-12-26] MEDS: PANTOPRAZOLE 40 MG TABLET PO SCH (20:12)
[2019-12-27] MEDS ORDERED: DEXTROSE 5%-WATER - 50 ML IVPB ONE ×3 (02:43→18:53)
[2019-12-27] MEDS ORDERED: PIPERACILLIN/TAZOBACTAM 3.375 GM VIAL IVPB ONE ×3 (02:43→18:53)
[2019-12-27] MEDS: PIPERACILLIN/TAZOB 3.375 GM 3.375 GM in DEXTROSE 5%-WATER - 50 ML IVPB SCH ×3 (02:44→18:30)
[2019-12-27] MEDS: VANCOMYCIN 1 GRAM (PRE-DOCKED) 1,000 MG/250 ML BAG IVPB SCH (02:45)
[2019-12-27 06:32] LABS: ARTERIAL BLD GAS O2 SATURATION 93.1 % (95-98); ARTERIAL BLOOD GAS BASE EXCESS 4.6 mmol/L (-2-2); ARTERIAL BLOOD GAS PCO2 51.9 mmHg (35-45); ARTERIAL BLOOD GAS PO2 74.5 mmHg (80-100); ARTERIAL BLOOD GAS pH 7.38 (7.35-7.45)
[2019-12-27 07:07] LABS: ALLENS TEST POSITIVE
[2019-12-27 07:49] LABS: BASO % 0.3 % (0-2.0); EOS % 0.6 % (0-4.5); HEMATOCRIT 34.4 % (32.4-45.2); HEMOGLOBIN 11.7 GM/dL (10.7-15.3); LYMPH % 4.5 % (8-40); MCH 30.3 pg (25.7-33.7); MCHC 33.9 g/dl (32.0-36.0); MEAN CELL VOLUME 89.2 fl (80-96); MEAN PLT VOLUME 7.5 fl (7.5-11.1); MONO % 4.7 % (3.8-10.2); NEUT % 89.9 % (42.8-82.8); PLATELET COUNT 439 K/MM3 (134-434); RBC 3.85 M/mm3 (3.60-5.2); RDW 13.7 % (11.6-15.6); WHITE BLOOD COUNT 13.5 K/mm3 (4.0-10.0)
[2019-12-27 08:18] LABS: ALBUMIN 2.3 g/dl (3.4-5.0); BILIRUBIN,TOTAL 0.4 mg/dL (0.2-1); BLOOD UREA NITROGEN 14.6 mg/dL (7-18); CALCIUM 8.6 mg/dL (8.5-10.1); CREATININE 0.6 mg/dL (0.55-1.3); MAGNESIUM 2.1 mg/dL (1.8-2.4); PHOSPHOROUS 3.7 mg/dL (2.5-4.9); POTASSIUM 4.7 mmol/L (3.5-5.1); TOT PROT 6.8 g/dl (6.4-8.2)
[2019-12-27 10:20] LABS: ANISOCYTOSIS 1+; MACROCYTOSIS 0; PLATELET ESTIMATE NORMAL
[2019-12-27] MEDS: LACTOBACILLUS ACIDOPHILUS 1 TABLET PO SCH (10:49)
[2019-12-27] MEDS: PANTOPRAZOLE 40 MG TABLET PO SCH (10:49)
[2019-12-27] MEDS: methylPREDNISolone NA SUCC 40 MG/1 ML VIAL IVPUSH SCH ×2 (10:49→21:21)
[2019-12-27] MEDS: ZINC SULFATE 220 MG CAPSULE (FP) PO SCH (10:50)
[2019-12-27] MEDS: ENOXAPARIN NA (PORCINE) 100 MG/1 ML DISP.SYRIN SQ SCH ×2 (10:50→21:20)
--- NOTE | 2019-12-27 12:09 | PN ---
Physical Exam: SUBJECTIVE: Patient seen TINY When asked about she felt today. Patient raised both thumbs up OBJECTIVE: Vital Signs Period Temp Pulse Resp BP Sys/Rivera Pulse Ox Last 24 Hr 98.1 F-98.7 F 53-114 23-48 101-117/67-88 92-98 PE: as per ICU attending. Priority is to conserve PPE at this time CPAP 100% PIP10 PO intake 1240 UOP 1500 via Kelley EKG QTc 509 Laboratory Results - last 24 hr 12/27/19 12/27/19 12/27/19 05:30 06:40 06:40 WBC 13.5 H RBC 3.85 Hgb 11.7 Hct 34.4 MCV 89.2 MCH 30.3 MCHC 33.9 RDW 13.7 Plt Count 439 H MPV 7.5 Absolute Neuts (auto) 12.1 H Neutrophils % 89.9 H Neutrophils % (Manual) 88.3 H Band Neutrophils % 0.0 Lymphocytes % 4.5 L Lymphocytes % (Manual) 0.0 L Monocytes % 4.7 Monocytes % (Manual) 6 D Eosinophils % 0.6 D Eosinophils % (Manual) 0.0 Basophils % 0.3 Basophils % (Manual) 0.0 Myelocytes % (Man) 2 D Promyelocytes % (Man) 0 Blast Cells % (Manual) 0 Nucleated RBC % 0 Metamyelocytes 0 D Hypochromia 0 Platelet Estimate Normal Polychromasia 1+ Poikilocytosis 1+ Anisocytosis 1+ Microcytosis 1+ Macrocytosis 0 D-Dimer Anticoagulation Therapy No Result Required. Puncture Site Left radial ABG pH 7.38 ABG pCO2 at Pt Temp 51.9 H ABG pO2 at Pt Temp 74.5 L ABG HCO3 30.2 H ABG O2 Sat (Measured) 93.1 L ABG O2 Content 14.9 ABG Base Excess 4.6 H Lake Test Positive Patient On Oxygen Yes O2 Delivery Device Vlo/cpap Oxygen Flow Rate 100% Vent Mode Capa Vent Rate No Result Required. Mechanical Rate Cpap Pressure Support Vent Cpap 10 Sodium 134 L Potassium 4.7 Chloride 99 Carbon Dioxide 31 Anion Gap 4 L BUN 14.6 Creatinine 0.6 Est GFR (CKD-EPI)AfAm 130.30 Est GFR (CKD-EPI)NonAf 112.42 Random Glucose 106 Calcium 8.6 Phosphorus 3.7 Magnesium 2.1 Total Bilirubin 0.4 AST 27 ALT 61 Alkaline Phosphatase 221 H LD Total 483 H Creatine Kinase 20 L C-Reactive Protein 5.9 H Total Protein 6.8 Albumin 2.3 L 12/27/19 06:40 WBC RBC Hgb Hct MCV MCH MCHC RDW Plt Count MPV Absolute Neuts (auto) Neutrophils % Neutrophils % (Manual) Band Neutrophils % Lymphocytes % Lymphocytes % (Manual) Monocytes % Monocytes % (Manual) Eosinophils % Eosinophils % (Manual) Basophils % Basophils % (Manual) Myelocytes % (Man) Promyelocytes % (Man) Blast Cells % (Manual) Nucleated RBC % Metamyelocytes Hypochromia Platelet Estimate Polychromasia Poikilocytosis Anisocytosis Microcytosis Macrocytosis D-Dimer 7780 H Anticoagulation Therapy Puncture Site ABG pH ABG pCO2 at Pt Temp ABG pO2 at Pt Temp ABG HCO3 ABG O2 Sat (Measured) ABG O2 Content ABG Base Excess Lake Test Patient On Oxygen O2 Delivery Device Oxygen Flow Rate Vent Mode Vent Rate Mechanical Rate Pressure Support Vent Sodium Potassium Chloride Carbon Dioxide Anion Gap BUN Creatinine Est GFR (CKD-EPI)AfAm Est GFR (CKD-EPI)NonAf Random Glucose Calcium Phosphorus Magnesium Total Bilirubin AST ALT Alkaline Phosphatase LD Total Creatine Kinase C-Reactive Protein Total Protein Albumin Active Medications Generic Name Dose Route Start Last Admin Trade Name Freq PRN Reason Stop Dose Admin Acetaminophen 650 mg 12/19/19 17:15 12/21/19 22:50 Tylenol - PO 650 mg Q6H PRN Administration PAIN Albuterol Sulfate 2 puff 12/19/19 17:15 Ventolin Hfa Inhaler - IH Q4H PRN SHORT OF BREATH/WHEEZING Alprazolam 0.25 mg 12/26/19 10:41 Xanax - PO Q6H PRN ANXIETY Enoxaparin Sodium 90 mg 12/19/19 22:00 12/27/19 10:50 Lovenox - SQ 90 mg BID DARIEL Administration Hydroxychloroquine Sulfate 400 mg 12/20/19 15:00 12/26/19 14:15 Plaquenil - PO Not Given ONCE DARIEL Piperacillin Sod/Tazobactam 50 mls @ 100 mls/hr 12/20/19 15:00 12/27/19 10:50 Sod 3.375 gm/ Dextrose IVPB 100 mls/hr Q8H-IV DARIEL Administration Protocol Lactobacillus Acidophilus 1 tab 12/26/19 10:45 12/27/19 10:49 Bacid - PO 1 tab DAILY DARIEL Administration Methylprednisolone Sodium Succinate 50 mg 12/21/19 22:00 12/27/19 10:49 Solu-Medrol - IVPUSH 50 mg BID DARIEL Administration Pantoprazole Sodium 40 mg 12/26/19 14:30 12/27/19 10:49 Protonix - PO 40 mg DAILY DARIEL Administration Zinc Sulfate 220 mg 12/19/19 20:00 12/27/19 10:50 Orazinc - PO 220 mg DAILY DARIEL Administration ASSESSMENT/PLAN: 44 yo F PMH Hodgkins' lymphoma X3 s/p radiation and stem cell transplant in 2011, not on active treatment, appendectomy, cholecystectomy, anxiety, presented with SOB admitted to ICU for worsening Acute hypoxic respiratory failure. Was on pressor support, off since 12/21/19. Was downgraded to MedSurg, but desaturated with HFNC. Transferred back to ICU for close monitoring on CPAP #Neuro Xanax 0.25mg q6h for anxiety #Cardio off pressors since 12/21/19 monitor in ICU #Pulm plaquenil dc'd --QTc elevated toady, and pt has been consistently refusing zinc solumedrol empirically(12/20 - current) cont vanco(d2) --stopped zosyn(d7) --finished and dc'd on CPAP 10/100% FiO2. #ID zosyn --completed 7d Plaquenil --dc'd dt patient consistently refusing it #Renal UOP 1500 --adequate Cr 0.5 #FEN encourage PO intake monitor lytes regular diet #ppx DVT ppx: lovenox 40mg QD GI ppx: protonix QD #Lines Central L IJ removed- 12/[address] #codes full code Visit type - Emergency Visit Emergency Visit: No - New Patient This patient is new to me today: No - Critical Care Critical Care patient: Yes Total Critical Care Time (in minutes): 31 Critical Care Statement: The care of this patient involved high complexity decision making to prevent further life threatening deterioration of the patient's condition and/or to evaluate & treat vital organ system(s) failure or risk of failure. ATTENDING PHYSICIAN STATEMENT I saw and evaluated the patient. I reviewed the resident's note and discussed the case with the resident. I agree with the resident's findings and plan as documented. SUBJECTIVE: OBJECTIVE: ASSESSMENT AND PLAN:
--- NOTE | 2019-12-27 14:21 | PN ---
Teaching Attending Note Name of Resident: Armani Donald ATTENDING PHYSICIAN STATEMENT I saw and evaluated the patient. I reviewed the resident's note and discussed the case with the resident. I agree with the resident's findings and plan as documented. PULMONARY/CCM Pt seen and examined in the ICU. Remains on CPAP 10/100% FiO2. States breathing slightly better than yesterday. OBJECTIVE: Vital Signs Period Temp Pulse Resp BP Sys/Rivera Pulse Ox Last 24 Hr 98.1 F-98.7 F 53-117 23-48 101-117/67-88 92-98 Intake & Output 12/24/19 12/25/19 12/26/19 12/27/19 23:59 23:59 23:59 23:59 Intake Total 1050 2251 2272 1150 Output Total 400 2300 1350 500 Balance 650 -49 922 650 Weight 90.718 kg 90.718 kg Gen: tachypneic on CPAP Heart: tachycardic, regular Lung: scattered rales Abd: soft, nontender Ext: no edema CBC, BMP 12/27/19 06:40 12/27/19 06:40 Hepatic Panel Total Bilirubin 0.4 mg/dL (0.2-1) 12/27/19 06:40 Direct Bilirubin 0.3 mg/dL (0.0-0.2) H 12/19/19 13:13 AST 27 U/L (15-37) 12/27/19 06:40 ALT 61 U/L (13-61) 12/27/19 06:40 Alkaline Phosphatase 221 U/L (45-117) H 12/27/19 06:40 Albumin 2.3 g/dl (3.4-5.0) L 12/27/19 06:40 ABG Results ABG pH 7.38 (7.35-7.45) 12/27/19 05:30 ABG pCO2 at Pt Temp 51.9 mmHg (35-45) H 12/27/19 05:30 ABG pO2 at Pt Temp 74.5 mmHg (80-100) L 12/27/19 05:30 ABG HCO3 30.2 mmol/L (22-27) H 12/27/19 05:30 ABG O2 Sat (Measured) 93.1 % (95-98) L 12/27/19 05:30 ABG O2 Content 14.9 % vol 12/27/19 05:30 ABG Base Excess 4.6 mmol/L (-2-2) H 12/27/19 05:30 Active Medications Acetaminophen (Tylenol -) 650 mg PO Q6H PRN PRN Reason: PAIN Last Admin: 12/21/19 22:50 Dose: 650 mg Documented by: Albuterol Sulfate (Ventolin Hfa Inhaler -) 2 puff IH Q4H PRN PRN Reason: SHORT OF BREATH/WHEEZING Alprazolam (Xanax -) 0.25 mg PO Q6H PRN PRN Reason: ANXIETY Enoxaparin Sodium (Lovenox -) 90 mg SQ BID [facility] Last Admin: 12/27/19 10:50 Dose: 90 mg Documented by: Hydroxychloroquine Sulfate (Plaquenil -) 400 mg PO ONCE [facility] Last Admin: 12/26/19 14:15 Dose: Not Given Documented by: Piperacillin Sod/Tazobactam (Sod 3.375 gm/ Dextrose) 50 mls @ 100 mls/hr IVPB Q8H-IV DARIEL; Protocol Last Admin: 12/27/19 10:50 Dose: 100 mls/hr Documented by: Lactobacillus Acidophilus (Bacid -) 1 tab PO DAILY [facility] Last Admin: 12/27/19 10:49 Dose: 1 tab Documented by: Methylprednisolone Sodium Succinate (Solu-Medrol -) 50 mg IVPUSH BID [facility] Last Admin: 12/27/19 10:49 Dose: 50 mg Documented by: Pantoprazole Sodium (Protonix -) 40 mg PO DAILY [facility] Last Admin: 12/27/19 10:49 Dose: 40 mg Documented by: Zinc Sulfate (Orazinc -) 220 mg PO DAILY [facility] Last Admin: 12/27/19 10:50 Dose: 220 mg Documented by: ASSESSMENT AND PLAN: Acute Hypoxic Respiratory Failure COVID Pneumonia ARDS Septic Shock Elevated LFTs h/o Hodgkins Lymphoma h/o DVTs - pt considering convalescent plasma - continue antibiotics - complete plaquenil course - monitor QTc - empiric steroids - empiric anticoagulation - continue CPAP - titrate FiO2 to keep SpO2 >90% - can monitor on floor with pulse oximetry monitoring critical care time spent in reviewing chart, evaluating patient and formulating plan 35 min
[2019-12-27] MEDS: HYDROXYCHLOROQUINE SO4 200 MG TABLET (FP) PO SCH ×2 (15:34→19:03)
[2019-12-28] MEDS ORDERED: DEXTROSE 5%-WATER - 50 ML IVPB ONE ×2 (01:20→10:29)
[2019-12-28] MEDS ORDERED: PIPERACILLIN/TAZOBACTAM 3.375 GM VIAL IVPB ONE ×2 (01:20→10:29)
[2019-12-28] MEDS: PIPERACILLIN/TAZOB 3.375 GM 3.375 GM in DEXTROSE 5%-WATER - 50 ML IVPB SCH ×2 (01:27→10:51)
[2019-12-28] MEDS: PANTOPRAZOLE 40 MG TABLET PO SCH (10:51)
[2019-12-28] MEDS: LACTOBACILLUS ACIDOPHILUS 1 TABLET PO SCH (10:51)
[2019-12-28] MEDS: ENOXAPARIN NA (PORCINE) 100 MG/1 ML DISP.SYRIN SQ SCH ×2 (10:51→22:15)
[2019-12-28] MEDS: ZINC SULFATE 220 MG CAPSULE (FP) PO SCH (10:51)
[2019-12-28] MEDS: methylPREDNISolone NA SUCC 40 MG/1 ML VIAL IVPUSH SCH ×2 (10:51→22:16)
--- NOTE | 2019-12-28 13:56 | PN ---
Teaching Attending Note Name of Resident: Armani Donald ATTENDING PHYSICIAN STATEMENT I saw and evaluated the patient. I reviewed the resident's note and discussed the case with the resident. I agree with the resident's findings and plan as documented. PULMONARY/CCM Pt seen and examined in the ICU. Remains on CPAP 10/100% FiO2. States breathing slightly better than yesterday. OBJECTIVE: Vital Signs Period Temp Pulse Resp BP Sys/Rivera Pulse Ox Last 24 Hr 98.3 F-98.6 F 104-122 23-45 87-112/61-81 92-97 Intake & Output 12/25/19 12/26/19 12/27/19 12/28/19 23:59 23:59 23:59 23:59 Intake Total 2251 2272 2500 300 Output Total 2300 1350 1400 1300 Balance -49 922 1100 -1000 Weight 90.718 kg 90.718 kg 90.718 kg Gen: tachypneic on CPAP Heart: tachycardic, regular Lung: scattered rales Abd: soft, nontender Ext: no edema CBC, BMP 12/27/19 06:40 12/27/19 06:40 Hepatic Panel Total Bilirubin 0.4 mg/dL (0.2-1) 12/27/19 06:40 Direct Bilirubin 0.3 mg/dL (0.0-0.2) H 12/19/19 13:13 AST 27 U/L (15-37) 12/27/19 06:40 ALT 61 U/L (13-61) 12/27/19 06:40 Alkaline Phosphatase 221 U/L (45-117) H 12/27/19 06:40 Albumin 2.3 g/dl (3.4-5.0) L 12/27/19 06:40 ABG Results ABG pH 7.38 (7.35-7.45) 12/27/19 05:30 ABG pCO2 at Pt Temp 51.9 mmHg (35-45) H 12/27/19 05:30 ABG pO2 at Pt Temp 74.5 mmHg (80-100) L 12/27/19 05:30 ABG HCO3 30.2 mmol/L (22-27) H 12/27/19 05:30 ABG O2 Sat (Measured) 93.1 % (95-98) L 12/27/19 05:30 ABG O2 Content 14.9 % vol 12/27/19 05:30 ABG Base Excess 4.6 mmol/L (-2-2) H 12/27/19 05:30 Active Medications Acetaminophen (Tylenol -) 650 mg PO Q6H PRN PRN Reason: PAIN Last Admin: 12/21/19 22:50 Dose: 650 mg Documented by: Albuterol Sulfate (Ventolin Hfa Inhaler -) 2 puff IH Q4H PRN PRN Reason: SHORT OF BREATH/WHEEZING Alprazolam (Xanax -) 0.25 mg PO Q6H PRN PRN Reason: ANXIETY Enoxaparin Sodium (Lovenox -) 90 mg SQ BID [facility] Last Admin: 12/28/19 10:51 Dose: 90 mg Documented by: Hydroxychloroquine Sulfate (Plaquenil -) 400 mg PO ONCE [facility] Last Admin: 12/27/19 19:03 Dose: Not Given Documented by: Piperacillin Sod/Tazobactam (Sod 3.375 gm/ Dextrose) 50 mls @ 100 mls/hr IVPB Q8H-IV DARIEL; Protocol Last Admin: 12/28/19 10:51 Dose: 100 mls/hr Documented by: Lactobacillus Acidophilus (Bacid -) 1 tab PO DAILY [facility] Last Admin: 12/28/19 10:51 Dose: 1 tab Documented by: Methylprednisolone Sodium Succinate (Solu-Medrol -) 50 mg IVPUSH BID [facility] Last Admin: 12/28/19 10:51 Dose: 50 mg Documented by: Pantoprazole Sodium (Protonix -) 40 mg PO DAILY [facility] Last Admin: 12/28/19 10:51 Dose: 40 mg Documented by: Zinc Sulfate (Orazinc -) 220 mg PO DAILY [facility] Last Admin: 12/28/19 10:51 Dose: 220 mg Documented by: ASSESSMENT AND PLAN: Acute Hypoxic Respiratory Failure COVID Pneumonia ARDS Septic Shock Elevated LFTs h/o Hodgkins Lymphoma h/o DVTs - pt considering convalescent plasma - continue antibiotics - complete plaquenil course - monitor QTc - empiric steroids - empiric anticoagulation - continue CPAP - titrate FiO2 to keep SpO2 >90% - can monitor on floor with pulse oximetry monitoring critical care time spent in reviewing chart, evaluating patient and formulating plan 35 min
[2019-12-28] MEDS: HYDROXYCHLOROQUINE SO4 200 MG TABLET (FP) PO SCH (15:11)
--- NOTE | 2019-12-28 15:30 | PN ---
Physical Exam: SUBJECTIVE: Patient seen NAEON tolerating CPAP at 10 and 100% OBJECTIVE: Vital Signs Period Temp Pulse Resp BP Sys/Rivera Pulse Ox Last 24 Hr 98.3 F-98.6 F 104-122 23-43 87-112/61-81 93-97 PE: as per ICU attending. Priority is to conserve PPE at this time CPAP 100% PIP10 PO intake 1200 UOP 2200 via Kelley EKG QTc 479 Active Medications Generic Name Dose Route Start Last Admin Trade Name Freq PRN Reason Stop Dose Admin Acetaminophen 650 mg 12/19/19 17:15 12/21/19 22:50 Tylenol - PO 650 mg Q6H PRN Administration PAIN Albuterol Sulfate 2 puff 12/19/19 17:15 Ventolin Hfa Inhaler - IH Q4H PRN SHORT OF BREATH/WHEEZING Alprazolam 0.25 mg 12/26/19 10:41 Xanax - PO Q6H PRN ANXIETY Enoxaparin Sodium 90 mg 12/19/19 22:00 12/28/19 10:51 Lovenox - SQ 90 mg BID DARIEL Administration Hydroxychloroquine Sulfate 400 mg 12/20/19 15:00 12/28/19 15:11 Plaquenil - PO Not Given ONCE DARIEL Piperacillin Sod/Tazobactam 50 mls @ 100 mls/hr 12/20/19 15:00 12/28/19 10:51 Sod 3.375 gm/ Dextrose IVPB 100 mls/hr Q8H-IV DARIEL Administration Protocol Lactobacillus Acidophilus 1 tab 12/26/19 10:45 12/28/19 10:51 Bacid - PO 1 tab DAILY DARIEL Administration Methylprednisolone Sodium Succinate 50 mg 12/21/19 22:00 12/28/19 10:51 Solu-Medrol - IVPUSH 50 mg BID DARIEL Administration Pantoprazole Sodium 40 mg 12/26/19 14:30 12/28/19 10:51 Protonix - PO 40 mg DAILY DARIEL Administration Zinc Sulfate 220 mg 12/19/19 20:00 12/28/19 10:51 Orazinc - PO 220 mg DAILY DARIEL Administration ASSESSMENT/PLAN: 44 yo F PMH Hodgkins' lymphoma X3 s/p radiation and stem cell transplant in 2011, not on active treatment, appendectomy, cholecystectomy, anxiety, presented with SOB admitted to ICU for worsening Acute hypoxic respiratory failure. Was on pressor support, off since 12/21/19. Was downgraded to MedSurg, but desaturated with HFNC. To be transferred back to ICU for close monitoring on CPAP #Neuro Xanax 0.25mg q6h for anxiety #Cardio off pressors since 12/21/19 monitor in ICU #Pulm plaquenil dc'd --pt has been consistently refusing zinc solumedrol empirically(12/20 - current) cont vanco(d2) --stopped zosyn(d7) --finished and dc'd on CPAP 10/100% FiO2. #ID zosyn --completed 7d Plaquenil --dc'd dt patient consistently refusing it #Renal UOP 2200 --adequate #FEN encourage PO intake monitor lytes FLD #ppx DVT ppx: lovenox 90mg BID GI ppx: protonix QD #Lines Central L IJ removed- 12/[address] #codes full code Visit type - Emergency Visit Emergency Visit: No - New Patient This patient is new to me today: No - Critical Care Critical Care patient: Yes Total Critical Care Time (in minutes): 32 Critical Care Statement: The care of this patient involved high complexity decision making to prevent further life threatening deterioration of the patient's condition and/or to evaluate & treat vital organ system(s) failure or risk of failure. ATTENDING PHYSICIAN STATEMENT I saw and evaluated the patient. I reviewed the resident's note and discussed the case with the resident. I agree with the resident's findings and plan as documented. SUBJECTIVE: OBJECTIVE: ASSESSMENT AND PLAN:
[2019-12-28] MEDS ORDERED: ALBUTEROL SO4 HFA INHALER IH PRN (15:59)
[2019-12-28 17:09] LABS: HEMATOCRIT 37.9 % (32.4-45.2); HEMOGLOBIN 12.7 GM/dL (10.7-15.3); MCHC 33.4 g/dl (32.0-36.0); MEAN CELL VOLUME 89.8 fl (80-96); MEAN PLT VOLUME 7.4 fl (7.5-11.1); PLATELET COUNT 439 K/MM3 (134-434); RBC 4.22 M/mm3 (3.60-5.2); RDW 13.7 % (11.6-15.6)
[2019-12-28 17:25] LABS: BLOOD UREA NITROGEN 14.2 mg/dL (7-18); CALCIUM 8.8 mg/dL (8.5-10.1); CREATININE 0.7 mg/dL (0.55-1.3); MAGNESIUM 2.1 mg/dL (1.8-2.4); PHOSPHOROUS 3.1 mg/dL (2.5-4.9); POTASSIUM 4.5 mmol/L (3.5-5.1)
[2019-12-29 08:30] LABS: HEMATOCRIT 35.5 % (32.4-45.2); MCH 30.2 pg (25.7-33.7); MCHC 33.7 g/dl (32.0-36.0); MEAN CELL VOLUME 89.7 fl (80-96); MEAN PLT VOLUME 7.5 fl (7.5-11.1); PLATELET COUNT 399 K/MM3 (134-434); RBC 3.96 M/mm3 (3.60-5.2); RDW 13.5 % (11.6-15.6); WHITE BLOOD COUNT 13.4 K/mm3 (4.0-10.0)
[2019-12-29] MEDS: methylPREDNISolone NA SUCC 40 MG/1 ML VIAL IVPUSH SCH ×2 (09:07→21:26)
[2019-12-29] MEDS: LACTOBACILLUS ACIDOPHILUS 1 TABLET PO SCH (09:07)
[2019-12-29] MEDS: PANTOPRAZOLE 40 MG TABLET PO SCH (09:07)
[2019-12-29] MEDS: ZINC SULFATE 220 MG CAPSULE (FP) PO SCH (09:07)
[2019-12-29] MEDS: ENOXAPARIN NA (PORCINE) 100 MG/1 ML DISP.SYRIN SQ SCH ×2 (09:07→21:26)
[2019-12-29 10:12] LABS: BLOOD UREA NITROGEN 16.8 mg/dL (7-18); CREATININE 0.6 mg/dL (0.55-1.3)
[2019-12-29 10:13] LABS: CALCIUM 8.8 mg/dL (8.5-10.1); MAGNESIUM 2.3 mg/dL (1.8-2.4); PHOSPHOROUS 3.2 mg/dL (2.5-4.9); POTASSIUM 4.8 mmol/L (3.5-5.1)
--- NOTE | 2019-12-29 12:40 | PN ---
Progress Note (short form) - Note Progress Note: PULMONARY PATIENT SEEN AND EXAMINED ON 4S CHART REVIEWED ON PAP/APPEARS STABLE VSS/AFEBRILE Gen: tachypneic on CPAP Heart: tachycardic, regular Lung: scattered rales Abd: soft, nontender Ext: no edema Active Medications/labs/images/micro/notes reviewed ferritin 751 ldh 498 crp5.9 d-dimer 6605 ASSESSMENT AND PLAN: Acute Hypoxic Respiratory Failure COVID Pneumonia ARDS resolved Septic Shock resolved Elevated LFTs h/o Hodgkins Lymphoma h/o DVTs - pt considering convalescent plasma - completed antibiotics - completed plaquenil course - empiric steroids - empiric anticoagulation - continue CPAP - titrate FiO2 to keep SpO2 >90% - pulse oximetry monitoring Gene RIOS MD
--- NOTE | 2019-12-29 15:14 | PN ---
Physical Exam: SUBJECTIVE: Patient seen and examined in the morning. No acute events overnight. Patient transferred from ICU yesterday. No complaints of chest pain, shortness of breath, abdominal pain. Patient maintaining saturation with CPAP on, desats when eating. OBJECTIVE: Vital Signs Period Temp Pulse Resp BP Sys/Rivera Pulse Ox Last 24 Hr 97.4 F-98.4 F 84-122 20-33 108-128/71-80 90-97 GENERAL: The patient is awake, alert, and fully oriented, in no acute distress. ENT:CPAP on face. LUNGS: No stethoscope in room HEART: No stethoscope in room ABDOMEN: Soft, nontender, nondistended EXTREMITIES: 2+ pulses, warm, well-perfused, no edema. NEUROLOGICAL: Cranial nerves II through XII grossly intact. PSYCH: Normal mood, normal affect. SKIN: Warm, dry, normal turgor, no rashes or lesions noted Laboratory Results - last 24 hr 12/28/19 12/28/19 12/29/19 16:40 16:40 07:10 WBC 16.0 H 13.4 H RBC 4.22 3.96 Hgb 12.7 12.0 Hct 37.9 35.5 MCV 89.8 89.7 MCH 30.0 30.2 MCHC 33.4 33.7 RDW 13.7 13.5 Plt Count 439 H 399 MPV 7.4 L 7.5 D-Dimer Sodium 134 L Potassium 4.5 Chloride 99 Carbon Dioxide 29 Anion Gap 6 L BUN 14.2 Creatinine 0.7 Est GFR (CKD-EPI)AfAm 123.86 Est GFR (CKD-EPI)NonAf 106.87 Random Glucose 128 H Calcium 8.8 Phosphorus 3.1 Magnesium 2.1 Ferritin LD Total Creatine Kinase 12/29/19 12/29/19 07:10 07:10 WBC RBC Hgb Hct MCV MCH MCHC RDW Plt Count MPV D-Dimer 6605 H Sodium 136 Potassium 4.8 Chloride 96 L Carbon Dioxide 29 Anion Gap 10 BUN 16.8 Creatinine 0.6 Est GFR (CKD-EPI)AfAm 130.30 Est GFR (CKD-EPI)NonAf 112.42 Random Glucose 106 Calcium 8.8 Phosphorus 3.2 Magnesium 2.3 Ferritin 751.0 H LD Total 498 H Creatine Kinase 32 Active Medications Generic Name Dose Route Start Last Admin Trade Name Freq PRN Reason Stop Dose Admin Acetaminophen 650 mg 12/28/19 15:59 Tylenol - PO Q6H PRN PAIN Albuterol Sulfate 2 puff 12/28/19 15:59 Ventolin Hfa Inhaler - IH Q4H PRN SHORT OF BREATH/WHEEZING Alprazolam 0.25 mg 12/28/19 15:59 Xanax - PO Q6H PRN ANXIETY Enoxaparin Sodium 90 mg 12/28/19 22:00 12/29/19 09:07 Lovenox - SQ 90 mg BID DARIEL Administration Lactobacillus Acidophilus 1 tab 12/29/19 10:00 12/29/19 09:07 Bacid - PO 1 tab DAILY DARIEL Administration Methylprednisolone Sodium Succinate 50 mg 12/28/19 22:00 12/29/19 09:07 Solu-Medrol - IVPUSH 50 mg BID DARIEL Administration Pantoprazole Sodium 40 mg 12/29/19 10:00 12/29/19 09:07 Protonix - PO 40 mg DAILY DARIEL Administration Zinc Sulfate 220 mg 12/29/19 10:00 12/29/19 09:07 Orazinc - PO 220 mg DAILY DARIEL Administration ASSESSMENT/PLAN: 44F [facility] Hodgkins' lymphoma s/p radiation and stem cell transplant (2011), appendectomy, cholecystectomy, anxiety, who presents with acute respiratory failure 2/2/ to COVID infection 1) Acute hypoxic respiratory failure 2/2 COVID - Consider plasma- will discuss and see if patient consents. - Completed antibiotics - Did not complete plaquenil course due to not wanting medication - Solumedrol 50 BID - Lovenox 90 BID - CPAP, keep O2 > 90% - zinc - vitamin c - vitamin d - albuterol inhaler - monitor ferritin, LDH, CRP - Continous pulse oximetry - Patient does not want Convalescent Plasma Therapy - Pulmonology consulted, appreciate recs 2) Hx of anxiety - Continue Xanax Q6H DVT: Lovenox BID F: Oral hydration E: Monitor CMP N: Liquid diet Dispo: Monitor on Telemetry Visit type - Emergency Visit Emergency Visit: Yes ED Registration Date: 12/19/19 Care time: The patient presented to the Emergency Department on the above date and was hospitalized for further evaluation of their emergent condition. - New Patient This patient is new to me today: Yes Date on this admission: 12/29/19 - Critical Care Critical Care patient: No - Discharge Referral Referred to [facility] Med P.C.: No ATTENDING PHYSICIAN STATEMENT I saw and evaluated the patient. I reviewed the resident's note and discussed the case with the resident. I agree with the resident's findings and plan as documented. SUBJECTIVE: OBJECTIVE: ASSESSMENT AND PLAN:
--- NOTE | 2019-12-29 16:06 | PN ---
Teaching Attending Note Name of Resident: Thuy Christie ATTENDING PHYSICIAN STATEMENT I reviewed the resident's note and discussed the case with the resident. I agree with the resident's findings and plan as documented. SUBJECTIVE: Patient is a 44yof with PMHx of Hodgkins lymphoma s/p radiation and stem cell transplant in 2011, who came to the hospital for shortness of breath. Patient had a sick contact with her sister who is COVID positive. patient presented with flu-like symptoms x 10 days and 5 days of worsening SOB, cough, and fevers. 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 Patient initially presented with 68% on RA as per ED. Notes, which improved to 15L on NRB. Patient was in ICU on High flow oxygen with prone positioning and for possible intubation. OBJECTIVE: Vital Signs Temperature 98.4 F 12/29/19 10:00 Pulse Rate 114 H 12/29/19 10:00 Respiratory Rate 22 H 12/29/19 10:00 Blood Pressure 114/73 12/29/19 10:00 O2 Sat by Pulse Oximetry (%) 96 12/29/19 15:06 PE: per resident's note CBCD WBC 13.4 K/mm3 (4.0-10.0) H 12/29/19 07:10 RBC 3.96 M/mm3 (3.60-5.2) 12/29/19 07:10 Hgb 12.0 GM/dL (10.7-15.3) 12/29/19 07:10 Hct 35.5 % (32.4-45.2) 12/29/19 07:10 MCV 89.7 fl (80-96) 12/29/19 07:10 MCHC 33.7 g/dl (32.0-36.0) 12/29/19 07:10 RDW 13.5 % (11.6-15.6) 12/29/19 07:10 Plt Count 399 K/MM3 (134-434) 12/29/19 07:10 MPV 7.5 fl (7.5-11.1) 12/29/19 07:10 CMP Sodium 136 mmol/L (136-145) 12/29/19 07:10 Potassium 4.8 mmol/L (3.5-5.1) 12/29/19 07:10 Chloride 96 mmol/L (98-107) L 12/29/19 07:10 Carbon Dioxide 29 mmol/L (21-32) 12/29/19 07:10 Anion Gap 10 MMOL/L (8-16) 12/29/19 07:10 BUN 16.8 mg/dL (7-18) 12/29/19 07:10 Creatinine 0.6 mg/dL (0.55-1.3) 12/29/19 07:10 Random Glucose 106 mg/dL (74-106) 12/29/19 07:10 Calcium 8.8 mg/dL (8.5-10.1) 12/29/19 07:10 Total Bilirubin 0.4 mg/dL (0.2-1) 12/27/19 06:40 AST 27 U/L (15-37) 12/27/19 06:40 ALT 61 U/L (13-61) 12/27/19 06:40 Alkaline Phosphatase 221 U/L (45-117) H 12/27/19 06:40 Total Protein 6.8 g/dl (6.4-8.2) 12/27/19 06:40 Albumin 2.3 g/dl (3.4-5.0) L 12/27/19 06:40 CARDIAC ENZYMES Creatine Kinase 32 U/L (26-192) 12/29/19 07:10 Troponin I < 0.02 ng/ml (0.00-0.05) 12/19/19 13:13 Current Medications Generic Name Dose Route Start Last Admin Trade Name Freq PRN Reason Stop Dose Admin Acetaminophen 650 mg 12/28/19 15:59 Tylenol - PO Q6H PRN PAIN Albuterol Sulfate 2 puff 12/28/19 15:59 Ventolin Hfa Inhaler - IH Q4H PRN SHORT OF BREATH/WHEEZING Alprazolam 0.25 mg 12/28/19 15:59 Xanax - PO Q6H PRN ANXIETY Enoxaparin Sodium 90 mg 12/28/19 22:00 12/29/19 09:07 Lovenox - SQ 90 mg BID DARIEL Administration Lactobacillus Acidophilus 1 tab 12/29/19 10:00 12/29/19 09:07 Bacid - PO 1 tab DAILY DARIEL Administration Methylprednisolone Sodium Succinate 50 mg 12/28/19 22:00 12/29/19 09:07 Solu-Medrol - IVPUSH 50 mg BID DARIEL Administration Pantoprazole Sodium 40 mg 12/29/19 10:00 12/29/19 09:07 Protonix - PO 40 mg DAILY DARIEL Administration Zinc Sulfate 220 mg 12/29/19 10:00 12/29/19 09:07 Orazinc - PO 220 mg DAILY DARIEL Administration Home Medications Medication Instructions Recorded NK [No Known Home Medication] 10/02/15 Laboratory Tests 12/19/19 12/19/19 12/19/19 13:13 13:25 19:10 Ferritin AST 144 H 114 H ALT 123 H 111 H Alkaline Phosphatase 195 H 179 H LD Total 725 H Creatine Kinase C-Reactive Protein COVID-19 (HORACE) Detected H 12/20/19 12/21/19 12/22/19 06:15 06:36 09:00 Ferritin 614.5 H AST 100 H 58 H 49 H ALT 109 H 79 H 67 H Alkaline Phosphatase 198 H 200 H 247 H LD Total 590 H Creatine Kinase C-Reactive Protein 21.2 H COVID-19 (HORACE) 12/23/19 12/24/19 12/25/19 05:30 05:30 05:25 Ferritin 782.0 H 636.7 H 609.7 H AST 40 H 32 35 ALT 60 51 52 Alkaline Phosphatase 232 H 221 H 230 H LD Total 618 H 614 H Creatine Kinase C-Reactive Protein 18.4 H 11.3 H 10.7 H COVID-19 ([facility]ORACE) 12/26/19 12/27/19 12/29/19 06:36 06:40 07:10 Ferritin 647.1 H 751.0 H AST 31 27 ALT 57 61 Alkaline Phosphatase 239 H 221 H LD Total 564 H 483 H 498 H Creatine Kinase 20 L 32 C-Reactive Protein 10.3 H 5.9 H COVID-19 (HORACE) Microbiology 12/20/19 10:35 Blood - Peripheral Venous Blood Culture - Final NO GROWTH AFTER 5 DAYS INCUBATION 12/21/19 05:24 Sputum - Expectorated Gram Stain - Final 12/21/19 05:24 Sputum - Expectorated Sputum Culture - Final NORMAL RESPIRATORY CRISSY 12/20/19 22:15 Urine - Urine Clean Catch Legionella Antigen - Final 12/20/19 22:15 Urine - Urine Clean Catch Streptococcus pneumoniae Antigen (M - Final ASSESSMENT AND PLAN: Patient is a 44yof with PMhx of lymphoma in remission, ( 8 yr) presented to ED. with SOB and myalgias [id number] and was found to be on 68% on RA on admission as per ED. Notes. #Acute Hypoxic Respiratory Failure due to Covid 19: on Zinc/solu medrol/lovenox empirically , completed Plaquenil , on Cpap prn , s/p high flow ,keep sao2 above 90%, continue CPAP #COVID Pneumonia #Septic Shock resolved completed antibiotics ziosyn and vancomycin #Elevated LFTs #h/o Hodgkins Lymphoma #h/o DVTs DVT Px: lovenox pt considering convalescent plasma
[2019-12-29] MEDS ORDERED: METOPROLOL TARTRATE 5 MG/5 ML VIAL IVPUSH PRN (17:44)
[2019-12-30 07:24] LABS: BASO % 0.8 % (0-2.0); EOS % 0.2 % (0-4.5); HEMATOCRIT 35.3 % (32.4-45.2); HEMOGLOBIN 11.9 GM/dL (10.7-15.3); LYMPH % 4.8 % (8-40); MCH 29.8 pg (25.7-33.7); MCHC 33.5 g/dl (32.0-36.0); MEAN CELL VOLUME 88.9 fl (80-96); MEAN PLT VOLUME 8.1 fl (7.5-11.1); NEUT % 90.2 % (42.8-82.8); PLATELET COUNT 359 K/MM3 (134-434); RBC 3.98 M/mm3 (3.60-5.2); RDW 13.9 % (11.6-15.6); WHITE BLOOD COUNT 14.9 K/mm3 (4.0-10.0)
[2019-12-30 07:44] LABS: ALBUMIN 2.4 g/dl (3.4-5.0); BILIRUBIN,TOTAL 0.4 mg/dL (0.2-1); BLOOD UREA NITROGEN 13.6 mg/dL (7-18); CALCIUM 8.6 mg/dL (8.5-10.1); CREATININE 0.7 mg/dL (0.55-1.3); PHOSPHOROUS 3.2 mg/dL (2.5-4.9); POTASSIUM 4.3 mmol/L (3.5-5.1); TOT PROT 6.6 g/dl (6.4-8.2)
[2019-12-30 09:07] LABS: ANISOCYTOSIS 0; MACROCYTOSIS 0; PLATELET ESTIMATE NORMAL
[2019-12-30] MEDS: LACTOBACILLUS ACIDOPHILUS 1 TABLET PO SCH (10:25)
[2019-12-30] MEDS: PANTOPRAZOLE 40 MG TABLET PO SCH (10:25)
[2019-12-30] MEDS: methylPREDNISolone NA SUCC 40 MG/1 ML VIAL IVPUSH SCH ×2 (10:25→21:39)
[2019-12-30] MEDS: ASCORBIC ACID 500 MG TABLET (FP) PO SCH (10:25)
[2019-12-30] MEDS: CHOLECALCIFEROL (VIT D3) 1,000 UNIT (25 MCG) TABLET PO SCH (10:25)
[2019-12-30] MEDS: ZINC SULFATE 220 MG CAPSULE (FP) PO SCH (10:25)
[2019-12-30] MEDS: ENOXAPARIN NA (PORCINE) 100 MG/1 ML DISP.SYRIN SQ SCH ×2 (10:25→21:40)
--- NOTE | 2019-12-30 13:21 | PN ---
Physical Exam: SUBJECTIVE:Patient seen and examined in the morning. No acute events overnight. Patient transferred from ICU yesterday. No complaints of chest pain, shortness of breath, abdominal pain. Patient maintaining saturation with CPAP on, desats when eating. OBJECTIVE: Vital Signs Period Temp Pulse Resp BP Sys/Rivera Pulse Ox Last 24 Hr 97.0 F-100.1 F 112-129 18-30 113-137/68-84 92-96 GENERAL: The patient is awake, alert, and fully oriented, in no acute distress. ENT:CPAP on face. LUNGS: No stethoscope in room HEART: No stethoscope in room ABDOMEN: Soft, nontender, nondistended EXTREMITIES: 2+ pulses, warm, well-perfused, no edema. NEUROLOGICAL: Cranial nerves II through XII grossly intact. PSYCH: Normal mood, normal affect. SKIN: Warm, dry, normal turgor, no rashes or lesions noted Laboratory Results - last 24 hr 12/29/19 12/30/19 12/30/19 17:56 06:35 06:35 WBC 14.9 H RBC 3.98 Hgb 11.9 Hct 35.3 MCV 88.9 MCH 29.8 MCHC 33.5 RDW 13.9 Plt Count 359 MPV 8.1 Absolute Neuts (auto) 13.4 H Neutrophils % 90.2 H Neutrophils % (Manual) 84.1 H Band Neutrophils % 1.0 Lymphocytes % 4.8 L Lymphocytes % (Manual) 6.9 L D Monocytes % 4.0 Monocytes % (Manual) 3 L Eosinophils % 0.2 Eosinophils % (Manual) 1.0 D Basophils % 0.8 Basophils % (Manual) 0.0 Myelocytes % (Man) 2 Promyelocytes % (Man) 0 Blast Cells % (Manual) 0 Nucleated RBC % 0 Metamyelocytes 0 Hypochromia 0 Platelet Estimate Normal Polychromasia 0 Poikilocytosis 0 Anisocytosis 0 Microcytosis 0 Macrocytosis 0 D-Dimer Sodium 134 L Potassium 4.3 Chloride 98 Carbon Dioxide 28 Anion Gap 8 BUN 13.6 Creatinine 0.7 Est GFR (CKD-EPI)AfAm 123.86 Est GFR (CKD-EPI)NonAf 106.87 POC Glucometer 159 Random Glucose 129 H Calcium 8.6 Phosphorus 3.2 Magnesium 2.0 Ferritin 771.9 H Total Bilirubin 0.4 AST 37 ALT 71 H Alkaline Phosphatase 175 H LD Total 515 H C-Reactive Protein 2.4 H Total Protein 6.6 Albumin 2.4 L 12/30/19 06:35 WBC RBC Hgb Hct MCV MCH MCHC RDW Plt Count MPV Absolute Neuts (auto) Neutrophils % Neutrophils % (Manual) Band Neutrophils % Lymphocytes % Lymphocytes % (Manual) Monocytes % Monocytes % (Manual) Eosinophils % Eosinophils % (Manual) Basophils % Basophils % (Manual) Myelocytes % (Man) Promyelocytes % (Man) Blast Cells % (Manual) Nucleated RBC % Metamyelocytes Hypochromia Platelet Estimate Polychromasia Poikilocytosis Anisocytosis Microcytosis Macrocytosis D-Dimer 5772 H Sodium Potassium Chloride Carbon Dioxide Anion Gap BUN Creatinine Est GFR (CKD-EPI)AfAm Est GFR (CKD-EPI)NonAf POC Glucometer Random Glucose Calcium Phosphorus Magnesium Ferritin Total Bilirubin AST ALT Alkaline Phosphatase LD Total C-Reactive Protein Total Protein Albumin Active Medications Generic Name Dose Route Start Last Admin Trade Name Freq PRN Reason Stop Dose Admin Acetaminophen 650 mg 12/28/19 15:59 Tylenol - PO Q6H PRN PAIN Albuterol Sulfate 2 puff 12/28/19 15:59 Ventolin Hfa Inhaler - IH Q4H PRN SHORT OF BREATH/WHEEZING Alprazolam 0.25 mg 12/28/19 15:59 Xanax - PO Q6H PRN ANXIETY Ascorbic Acid 500 mg 12/30/19 10:00 12/30/19 10:25 Vitamin C - PO 500 mg DAILY DARIEL Administration Cholecalciferol 1,000 unit 12/30/19 10:00 12/30/19 10:25 Vitamin D3 - PO 1,000 unit DAILY DARIEL Administration Enoxaparin Sodium 90 mg 12/28/19 22:00 12/30/19 10:25 Lovenox - SQ 90 mg BID DARIEL Administration Lactobacillus Acidophilus 1 tab 12/29/19 10:00 12/30/19 10:25 Bacid - PO 1 tab DAILY DARIEL Administration Methylprednisolone Sodium Succinate 50 mg 12/28/19 22:00 12/30/19 10:25 Solu-Medrol - IVPUSH 50 mg BID DARIEL Administration Metoprolol Tartrate 5 mg 12/29/19 17:46 Lopressor Injection - IVPUSH Q4H PRN TACHYCARDIA Pantoprazole Sodium 40 mg 12/29/19 10:00 12/30/19 10:25 Protonix - PO 40 mg DAILY DARIEL Administration Zinc Sulfate 220 mg 12/29/19 10:00 12/30/19 10:25 Orazinc - PO 220 mg DAILY DARIEL Administration ASSESSMENT/PLAN: 44F PMH Hodgkins' lymphoma s/p radiation and stem cell transplant (2011), appendectomy, cholecystectomy, anxiety, who presents with acute respiratory failure 2/2/ to COVID infection 1) Acute hypoxic respiratory failure 2/2 COVID - Patient did not want Plasma therapy. - Completed antibiotics - Did not complete plaquenil course due to not wanting medication - Difficulty with proning/laying on lateral decubitus. - Solumedrol 50 BID - Lovenox 90 BID - CPAP, keep O2 > 90% - zinc - vitamin c - vitamin d - albuterol inhaler - monitor ferritin, LDH, CRP - Continous pulse oximetry - Patient does not want Convalescent Plasma Therapy - Pulmonology consulted, appreciate recs 2) Hx of anxiety - Continue Xanax Q6H PRN DVT: Lovenox BID F: Oral hydration E: Monitor CMP N: Liquid diet Dispo: Monitor on Telemetry. Continue close watch. Visit type - Emergency Visit Emergency Visit: Yes ED Registration Date: 12/19/19 Care time: The patient presented to the Emergency Department on the above date and was hospitalized for further evaluation of their emergent condition. - New Patient This patient is new to me today: No - Critical Care Critical Care patient: No ATTENDING PHYSICIAN STATEMENT I saw and evaluated the patient. I reviewed the resident's note and discussed the case with the resident. I agree with the resident's findings and plan as documented. SUBJECTIVE: OBJECTIVE: ASSESSMENT AND PLAN:
--- NOTE | 2019-12-30 14:08 | PN ---
Progress Note (short form) - Note Progress Note: PULMONARY PATIENT SEEN AND EXAMINED ON 4S CHART REVIEWED ICU COURSE WAS SIGNIFICANT FOR SHOCK REQUIRING PRESSORS/ ACUTE HYPOXEMIC RESP FAILURE REQUIRING HIGH CONCENTRATIONS OF O2 NOW ON PAP/APPEARS STABLE VSS/AFEBRILE Gen: stable on pap Heart: tachycardic, regular Lung: scattered rales Abd: soft, nontender Ext: no edema Active Medications/labs/images/micro/notes reviewed ferritin 771 ldh 515 crp 2.4 d-dimer 5772 ASSESSMENT AND PLAN Acute Hypoxic Respiratory Failure COVID Pneumonia ARDS resolved Septic Shock resolved Elevated LFTs h/o Hodgkins Lymphoma h/o DVTs - refused convalescent plasma - completed antibiotics - completed plaquenil course - empiric steroids - empiric anticoagulation - continue CPAP - titrate FiO2 to keep SpO2 >90% - pulse oximetry monitoring - continue current treatment plan Gene RIOS MD
--- NOTE | 2019-12-30 14:53 | PN ---
Teaching Attending Note Name of Resident: Thuy Christie ATTENDING PHYSICIAN STATEMENT I saw and evaluated the patient. I reviewed the resident's note and discussed the case with the resident. I agree with the resident's findings and plan as documented. SUBJECTIVE: patient is on cpap with labored breathing OBJECTIVE: Vital Signs Temperature 97.7 F 12/30/19 10:00 Pulse Rate 129 H 12/30/19 10:00 Respiratory Rate 26 H 12/30/19 10:00 Blood Pressure 122/84 12/30/19 10:00 O2 Sat by Pulse Oximetry (%) 94 L 12/30/19 07:45 Initial Vital Signs Temp 102.5 F H 12/19/19 13:07 PE: per resident's note CBCD WBC 14.9 K/mm3 (4.0-10.0) H 12/30/19 06:35 RBC 3.98 M/mm3 (3.60-5.2) 12/30/19 06:35 Hgb 11.9 GM/dL (10.7-15.3) 12/30/19 06:35 Hct 35.3 % (32.4-45.2) 12/30/19 06:35 MCV 88.9 fl (80-96) 12/30/19 06:35 MCHC 33.5 g/dl (32.0-36.0) 12/30/19 06:35 RDW 13.9 % (11.6-15.6) 12/30/19 06:35 Plt Count 359 K/MM3 (134-434) 12/30/19 06:35 MPV 8.1 fl (7.5-11.1) 12/30/19 06:35 CMP Sodium 134 mmol/L (136-145) L 12/30/19 06:35 Potassium 4.3 mmol/L (3.5-5.1) 12/30/19 06:35 Chloride 98 mmol/L (98-107) 12/30/19 06:35 Carbon Dioxide 28 mmol/L (21-32) 12/30/19 06:35 Anion Gap 8 MMOL/L (8-16) 12/30/19 06:35 BUN 13.6 mg/dL (7-18) 12/30/19 06:35 Creatinine 0.7 mg/dL (0.55-1.3) 12/30/19 06:35 Random Glucose 129 mg/dL (74-106) H 12/30/19 06:35 Calcium 8.6 mg/dL (8.5-10.1) 12/30/19 06:35 Total Bilirubin 0.4 mg/dL (0.2-1) 12/30/19 06:35 AST 37 U/L (15-37) 12/30/19 06:35 ALT 71 U/L (13-61) H 12/30/19 06:35 Alkaline Phosphatase 175 U/L (45-117) H 12/30/19 06:35 Total Protein 6.6 g/dl (6.4-8.2) 12/30/19 06:35 Albumin 2.4 g/dl (3.4-5.0) L 12/30/19 06:35 CARDIAC ENZYMES Creatine Kinase 32 U/L (26-192) 12/29/19 07:10 Troponin I < 0.02 ng/ml (0.00-0.05) 12/19/19 13:13 Current Medications Generic Name Dose Route Start Last Admin Trade Name Freq PRN Reason Stop Dose Admin Acetaminophen 650 mg 12/28/19 15:59 Tylenol - PO Q6H PRN PAIN Albuterol Sulfate 2 puff 12/28/19 15:59 Ventolin Hfa Inhaler - IH Q4H PRN SHORT OF BREATH/WHEEZING Alprazolam 0.25 mg 12/28/19 15:59 Xanax - PO Q6H PRN ANXIETY Ascorbic Acid 500 mg 12/30/19 10:00 12/30/19 10:25 Vitamin C - PO 500 mg DAILY DARIEL Administration Cholecalciferol 1,000 unit 12/30/19 10:00 12/30/19 10:25 Vitamin D3 - PO 1,000 unit DAILY DARIEL Administration Enoxaparin Sodium 90 mg 12/28/19 22:00 12/30/19 10:25 Lovenox - SQ 90 mg BID DARIEL Administration Lactobacillus Acidophilus 1 tab 12/29/19 10:00 12/30/19 10:25 Bacid - PO 1 tab DAILY DARIEL Administration Methylprednisolone Sodium Succinate 50 mg 12/28/19 22:00 12/30/19 10:25 Solu-Medrol - IVPUSH 50 mg BID DARIEL Administration Metoprolol Tartrate 5 mg 12/29/19 17:46 Lopressor Injection - IVPUSH Q4H PRN TACHYCARDIA Pantoprazole Sodium 40 mg 12/29/19 10:00 12/30/19 10:25 Protonix - PO 40 mg DAILY DARIEL Administration Zinc Sulfate 220 mg 12/29/19 10:00 12/30/19 10:25 Orazinc - PO 220 mg DAILY DARIEL Administration Home Medications Medication Instructions Recorded Cetirizine HCl 10 mg PO DAILY 12/29/19 traZODone HCL [Trazodone HCl] 50 mg PO HS 12/29/19 Microbiology 12/20/19 10:35 Blood - Peripheral Venous Blood Culture - Final NO GROWTH AFTER 5 DAYS INCUBATION 12/21/19 05:24 Sputum - Expectorated Gram Stain - Final 12/21/19 05:24 Sputum - Expectorated Sputum Culture - Final NORMAL RESPIRATORY CRISSY 12/20/19 22:15 Urine - Urine Clean Catch Legionella Antigen - Final 12/20/19 22:15 Urine - Urine Clean Catch Streptococcus pneumoniae Antigen (M - Final ASSESSMENT AND PLAN: Patient is a 44yof with PMhx of lymphoma in remission, ( 8 yr) presented to ED. with SOB and myalgias [id number] and was found to be on 68% on RA on admission as per ED. Notes. #Acute Hypoxic Respiratory Failure due to Covid 19: on Zinc/solu medrol/lovenox empirically , completed Plaquenil , on Cpap now, discussed with pulmonary dr negro , s/p high flow ,keep sao2 above 90%, continue CPAP #COVID Pneumonia #Septic Shock resolved completed antibiotics zosyn and vancomycin #Elevated LFTs #h/o Hodgkins Lymphoma #h/o DVTs DVT Px: lovenox pt does not want convalescent plasma
[2019-12-30] MEDS: ALPRAZolam 0.25 MG TABLET PO PRN (17:00)
[2019-12-31 08:22] LABS: BASO % 0.3 % (0-2.0); EOS % 0.2 % (0-4.5); HEMATOCRIT 35.7 % (32.4-45.2); HEMOGLOBIN 11.9 GM/dL (10.7-15.3); LYMPH % 4.6 % (8-40); MCH 29.8 pg (25.7-33.7); MCHC 33.3 g/dl (32.0-36.0); MEAN CELL VOLUME 89.4 fl (80-96); MEAN PLT VOLUME 7.8 fl (7.5-11.1); MONO % 4.2 % (3.8-10.2); NEUT % 90.7 % (42.8-82.8); PLATELET COUNT 341 K/MM3 (134-434); RDW 13.9 % (11.6-15.6); WHITE BLOOD COUNT 17.4 K/mm3 (4.0-10.0)
[2019-12-31 08:59] LABS: ALBUMIN 2.6 g/dl (3.4-5.0); BILIRUBIN,TOTAL 0.4 mg/dL (0.2-1); CALCIUM 8.6 mg/dL (8.5-10.1); CREATININE 0.6 mg/dL (0.55-1.3); MAGNESIUM 2.2 mg/dL (1.8-2.4); PHOSPHOROUS 3.3 mg/dL (2.5-4.9); POTASSIUM 4.1 mmol/L (3.5-5.1); TOT PROT 6.6 g/dl (6.4-8.2)
[2019-12-31] MEDS: ZINC SULFATE 220 MG CAPSULE (FP) PO SCH (10:00)
[2019-12-31] MEDS: CHOLECALCIFEROL (VIT D3) 1,000 UNIT (25 MCG) TABLET PO SCH (10:00)
[2019-12-31] MEDS: PANTOPRAZOLE 40 MG TABLET PO SCH (10:00)
[2019-12-31] MEDS: LACTOBACILLUS ACIDOPHILUS 1 TABLET PO SCH (10:00)
[2019-12-31] MEDS: ASCORBIC ACID 500 MG TABLET (FP) PO SCH (10:00)
[2019-12-31] MEDS: ENOXAPARIN NA (PORCINE) 100 MG/1 ML DISP.SYRIN SQ SCH ×2 (10:01→21:12)
[2019-12-31] MEDS: methylPREDNISolone NA SUCC 40 MG/1 ML VIAL IVPUSH SCH ×2 (10:01→21:12)
[2019-12-31 10:38] LABS: ANISOCYTOSIS 1+; MACROCYTOSIS 0; PLATELET ESTIMATE NORMAL
--- NOTE | 2019-12-31 11:03 | PN ---
Progress Note, Physician History of Present Illness: PULMONARY AWAKE,DYSPNEIC ON CPAP, O2 SAT 90% - Current Medication List Current Medications: Active Medications Acetaminophen (Tylenol -) 650 mg PO Q6H PRN PRN Reason: PAIN Albuterol Sulfate (Ventolin Hfa Inhaler -) 2 puff IH Q4H PRN PRN Reason: SHORT OF BREATH/WHEEZING Alprazolam (Xanax -) 0.25 mg PO Q6H PRN PRN Reason: ANXIETY Last Admin: 12/30/19 17:00 Dose: 0.25 mg Documented by: Ascorbic Acid (Vitamin C -) 500 mg PO DAILY [facility] Last Admin: 12/31/19 10:00 Dose: 500 mg Documented by: Cholecalciferol (Vitamin D3 -) 1,000 unit PO DAILY [facility] Last Admin: 12/31/19 10:00 Dose: 1,000 unit Documented by: Enoxaparin Sodium (Lovenox -) 90 mg SQ BID [facility] Last Admin: 12/31/19 10:01 Dose: 90 mg Documented by: Lactobacillus Acidophilus (Bacid -) 1 tab PO DAILY [facility] Last Admin: 12/31/19 10:00 Dose: 1 tab Documented by: Methylprednisolone Sodium Succinate (Solu-Medrol -) 50 mg IVPUSH BID [facility] Last Admin: 12/31/19 10:01 Dose: 50 mg Documented by: Metoprolol Tartrate (Lopressor Injection -) 5 mg IVPUSH Q4H PRN PRN Reason: TACHYCARDIA Pantoprazole Sodium (Protonix -) 40 mg PO DAILY [facility] Last Admin: 12/31/19 10:00 Dose: 40 mg Documented by: Zinc Sulfate (Orazinc -) 220 mg PO DAILY [facility] Last Admin: 12/31/19 10:00 Dose: 220 mg Documented by: - Objective Vital Signs: Vital Signs Temperature 98.6 F 12/31/19 10:00 Pulse Rate 131 H 12/31/19 10:00 Respiratory Rate 24 H 12/31/19 10:00 Blood Pressure 135/72 12/31/19 10:00 O2 Sat by Pulse Oximetry (%) 94 L 12/31/19 08:40 Constitutional: Yes: Well Nourished, Calm Eyes: Yes: WNL HENT: Yes: WNL Cardiovascular: Yes: Regular Rate and Rhythm, S1, S2 Respiratory: Yes: Diminished Gastrointestinal: Yes: Normal Bowel Sounds, Soft Extremities: Yes: WNL Edema: No Labs: CBC, BMP 12/31/19 07:21 12/31/19 07:21 INR, PTT INR 1.25 (0.83-1.09) H 12/19/19 13:13 Laboratory Tests 12/31/19 07:21 Ferritin 687.6 H ALT 71 H Alkaline Phosphatase 171 H LD Total 472 H C-Reactive Protein 2.3 H Problem List - Problems (1) COVID-19 Code(s): U07.1 - COVID POSITIVE (2) Acute respiratory failure with hypoxia Code(s): J96.01 - ACUTE RESPIRATORY FAILURE WITH HYPOXIA Assessment/Plan ASSESSMENT AND PLAN Acute Hypoxic Respiratory Failure COVID Pneumonia ARDS resolved Septic Shock resolved Elevated LFTs h/o Hodgkins Lymphoma h/o DVTs - refused convalescent plasma - completed antibiotics - completed plaquenil course - empiric steroids - empiric anticoagulation - continue CPAP - titrate FiO2 to keep SpO2 >90% - pulse oximetry monitoring - continue current treatment plan DR GIBSON
--- NOTE | 2019-12-31 12:18 | PN ---
Physical Exam: SUBJECTIVE: Patient seen and examined in the morning. No acute events overnight. No complaints of chest pain, shortness of breath, abdominal pain. More comfortable today. OBJECTIVE: Vital Signs Period Temp Pulse Resp BP Sys/Rivera Pulse Ox Last 24 Hr 97.2 F-98.7 F 84-132 18-24 107-135/65-77 90-95 GENERAL: The patient is awake, alert, and fully oriented, in no acute distress. ENT:CPAP on face. LUNGS: Poor air entry b/l HEART: Tachycardic, regular rhythm ABDOMEN: Soft, nontender, nondistended, normoactive bowel sounds. EXTREMITIES: 2+ pulses, warm, well-perfused, no edema. NEUROLOGICAL: Cranial nerves II through XII grossly intact. PSYCH: Normal mood, normal affect. SKIN: Warm, dry, normal turgor, no rashes or lesions noted Laboratory Results - last 24 hr 12/31/19 12/31/19 12/31/19 07:21 07:21 07:21 WBC 17.4 H RBC 4.00 Hgb 11.9 Hct 35.7 MCV 89.4 MCH 29.8 MCHC 33.3 RDW 13.9 Plt Count 341 MPV 7.8 Absolute Neuts (auto) 15.7 H Neutrophils % 90.7 H Neutrophils % (Manual) 78.6 Band Neutrophils % 2.9 Lymphocytes % 4.6 L Lymphocytes % (Manual) 4.8 L D Monocytes % 4.2 Monocytes % (Manual) 4 Eosinophils % 0.2 Eosinophils % (Manual) 7.8 H D Basophils % 0.3 Basophils % (Manual) 0.0 Myelocytes % (Man) 0 D Promyelocytes % (Man) 1 D Blast Cells % (Manual) 0 Nucleated RBC % 0 Metamyelocytes 1 D Hypochromia 0 Platelet Estimate Normal Polychromasia 1+ Poikilocytosis 0 Anisocytosis 1+ Microcytosis 1+ Macrocytosis 0 D-Dimer 4269 H Sodium 137 Potassium 4.1 Chloride 98 Carbon Dioxide 32 Anion Gap 8 BUN 10.0 Creatinine 0.6 Est GFR (CKD-EPI)AfAm 130.30 Est GFR (CKD-EPI)NonAf 112.42 Random Glucose 137 H Calcium 8.6 Phosphorus 3.3 Magnesium 2.2 Ferritin 687.6 H Total Bilirubin 0.4 AST 30 ALT 71 H Alkaline Phosphatase 171 H LD Total 472 H C-Reactive Protein 2.3 H Total Protein 6.6 Albumin 2.6 L Active Medications Generic Name Dose Route Start Last Admin Trade Name Freq PRN Reason Stop Dose Admin Acetaminophen 650 mg 12/28/19 15:59 Tylenol - PO Q6H PRN PAIN Albuterol Sulfate 2 puff 12/28/19 15:59 Ventolin Hfa Inhaler - IH Q4H PRN SHORT OF BREATH/WHEEZING Alprazolam 0.25 mg 12/28/19 15:59 12/30/19 17:00 Xanax - PO 0.25 mg Q6H PRN Administration ANXIETY Ascorbic Acid 500 mg 12/30/19 10:00 12/31/19 10:00 Vitamin C - PO 500 mg DAILY DARIEL Administration Cholecalciferol 1,000 unit 12/30/19 10:00 12/31/19 10:00 Vitamin D3 - PO 1,000 unit DAILY DARIEL Administration Enoxaparin Sodium 90 mg 12/28/19 22:00 12/31/19 10:01 Lovenox - SQ 90 mg BID DARIEL Administration Lactobacillus Acidophilus 1 tab 12/29/19 10:00 12/31/19 10:00 Bacid - PO 1 tab DAILY DARIEL Administration Methylprednisolone Sodium Succinate 50 mg 12/28/19 22:00 12/31/19 10:01 Solu-Medrol - IVPUSH 50 mg BID DARIEL Administration Metoprolol Tartrate 5 mg 12/29/19 17:46 Lopressor Injection - IVPUSH Q4H PRN TACHYCARDIA Pantoprazole Sodium 40 mg 12/29/19 10:00 12/31/19 10:00 Protonix - PO 40 mg DAILY DARIEL Administration Zinc Sulfate 220 mg 12/29/19 10:00 12/31/19 10:00 Orazinc - PO 220 mg DAILY DARIEL Administration ASSESSMENT/PLAN: 44F PMH Hodgkins' lymphoma s/p radiation and stem cell transplant (2011), appendectomy, cholecystectomy, anxiety, who presents with acute respiratory failure 2/2/ to COVID infection 1) Acute hypoxic respiratory failure 2/2 COVID - Patient did not want Plasma therapy. - Completed antibiotics - Did not complete plaquenil course due to not wanting medication - Difficulty with proning/laying on lateral decubitus. - Solumedrol 50 BID - Lovenox 90 BID - CPAP, keep O2 > 90% - zinc - vitamin c - vitamin d - albuterol inhaler - monitor ferritin, LDH, CRP - Continous pulse oximetry - Pulmonology consulted, appreciate recs 2) Hx of anxiety - Continue Xanax Q6H PRN DVT: Lovenox BID F: Oral hydration E: Monitor CMP N: Liquid diet Dispo: Monitor on Telemetry. Continue close watch. Visit type - Emergency Visit Emergency Visit: Yes ED Registration Date: 12/19/19 Care time: The patient presented to the Emergency Department on the above date and was hospitalized for further evaluation of their emergent condition. - New Patient This patient is new to me today: No - Critical Care Critical Care patient: No ATTENDING PHYSICIAN STATEMENT I saw and evaluated the patient. I reviewed the resident's note and discussed the case with the resident. I agree with the resident's findings and plan as documented. SUBJECTIVE: OBJECTIVE: ASSESSMENT AND PLAN:
[2019-12-31] MEDS: ALPRAZolam 0.25 MG TABLET PO PRN (13:59)
--- NOTE | 2019-12-31 15:32 | PN ---
Teaching Attending Note Name of Resident: Thuy Christie ATTENDING PHYSICIAN STATEMENT I saw and evaluated the patient. I reviewed the resident's note and discussed the case with the resident. I agree with the resident's findings and plan as documented. SUBJECTIVE: Patient continues to be on bipap, feels slightly better Vital Signs Temperature 98.2 F 12/31/19 14:00 Pulse Rate 131 H 12/31/19 14:00 Respiratory Rate 26 H 12/31/19 14:00 Blood Pressure 130/78 12/31/19 14:00 O2 Sat by Pulse Oximetry (%) 91 L 12/31/19 15:07 PE: per resident's note CBCD WBC 17.4 K/mm3 (4.0-10.0) H 12/31/19 07:21 RBC 4.00 M/mm3 (3.60-5.2) 12/31/19 07:21 Hgb 11.9 GM/dL (10.7-15.3) 12/31/19 07:21 Hct 35.7 % (32.4-45.2) 12/31/19 07:21 MCV 89.4 fl (80-96) 12/31/19 07:21 MCHC 33.3 g/dl (32.0-36.0) 12/31/19 07:21 RDW 13.9 % (11.6-15.6) 12/31/19 07:21 Plt Count 341 K/MM3 (134-434) 12/31/19 07:21 MPV 7.8 fl (7.5-11.1) 12/31/19 07:21 CMP Sodium 137 mmol/L (136-145) 12/31/19 07:21 Potassium 4.1 mmol/L (3.5-5.1) 12/31/19 07:21 Chloride 98 mmol/L (98-107) 12/31/19 07:21 Carbon Dioxide 32 mmol/L (21-32) 12/31/19 07:21 Anion Gap 8 MMOL/L (8-16) 12/31/19 07:21 BUN 10.0 mg/dL (7-18) 12/31/19 07:21 Creatinine 0.6 mg/dL (0.55-1.3) 12/31/19 07:21 Random Glucose 137 mg/dL (74-106) H 12/31/19 07:21 Calcium 8.6 mg/dL (8.5-10.1) 12/31/19 07:21 Total Bilirubin 0.4 mg/dL (0.2-1) 12/31/19 07:21 AST 30 U/L (15-37) 12/31/19 07:21 ALT 71 U/L (13-61) H 12/31/19 07:21 Alkaline Phosphatase 171 U/L (45-117) H 12/31/19 07:21 Total Protein 6.6 g/dl (6.4-8.2) 12/31/19 07:21 Albumin 2.6 g/dl (3.4-5.0) L 12/31/19 07:21 CARDIAC ENZYMES Creatine Kinase 32 U/L (26-192) 12/29/19 07:10 Troponin I < 0.02 ng/ml (0.00-0.05) 12/19/19 13:13 Current Medications Generic Name Dose Route Start Last Admin Trade Name Freq PRN Reason Stop Dose Admin Acetaminophen 650 mg 12/28/19 15:59 Tylenol - PO Q6H PRN PAIN Albuterol Sulfate 2 puff 12/28/19 15:59 Ventolin Hfa Inhaler - IH Q4H PRN SHORT OF BREATH/WHEEZING Alprazolam 0.25 mg 12/28/19 15:59 12/31/19 13:59 Xanax - PO 0.25 mg Q6H PRN Administration ANXIETY Ascorbic Acid 500 mg 12/30/19 10:00 12/31/19 10:00 Vitamin C - PO 500 mg DAILY DARIEL Administration Cholecalciferol 1,000 unit 12/30/19 10:00 12/31/19 10:00 Vitamin D3 - PO 1,000 unit DAILY DARIEL Administration Enoxaparin Sodium 90 mg 12/28/19 22:00 12/31/19 10:01 Lovenox - SQ 90 mg BID DARIEL Administration Lactobacillus Acidophilus 1 tab 12/29/19 10:00 12/31/19 10:00 Bacid - PO 1 tab DAILY DARIEL Administration Methylprednisolone Sodium Succinate 50 mg 12/28/19 22:00 12/31/19 10:01 Solu-Medrol - IVPUSH 50 mg BID DARIEL Administration Metoprolol Tartrate 5 mg 12/29/19 17:46 Lopressor Injection - IVPUSH Q4H PRN TACHYCARDIA Pantoprazole Sodium 40 mg 12/29/19 10:00 12/31/19 10:00 Protonix - PO 40 mg DAILY DARIEL Administration Zinc Sulfate 220 mg 12/29/19 10:00 12/31/19 10:00 Orazinc - PO 220 mg DAILY DARIEL Administration Home Medications Medication Instructions Recorded Cetirizine HCl 10 mg PO DAILY 12/29/19 traZODone HCL [Trazodone HCl] 50 mg PO HS 12/29/19 Microbiology 12/20/19 10:35 Blood - Peripheral Venous Blood Culture - Final NO GROWTH AFTER 5 DAYS INCUBATION 12/21/19 05:24 Sputum - Expectorated Gram Stain - Final 12/21/19 05:24 Sputum - Expectorated Sputum Culture - Final NORMAL RESPIRATORY CRISSY 12/20/19 22:15 Urine - Urine Clean Catch Legionella Antigen - Final 12/20/19 22:15 Urine - Urine Clean Catch Streptococcus pneumoniae Antigen (M - Final Laboratory Tests 12/29/19 12/30/19 12/30/19 07:10 06:35 06:35 WBC 14.9 H Neutrophils % Neutrophils % (Manual) Band Neutrophils % D-Dimer 6605 H Ferritin 771.9 H ALT 71 H Alkaline Phosphatase 175 H LD Total 515 H 12/30/19 12/31/19 12/31/19 06:35 07:21 07:21 WBC 17.4 H Neutrophils % 90.7 H Neutrophils % (Manual) 78.6 Band Neutrophils % 2.9 D-Dimer 5772 H Ferritin 687.6 H ALT Alkaline Phosphatase LD Total 472 H 12/31/19 07:21 WBC Neutrophils % Neutrophils % (Manual) Band Neutrophils % D-Dimer 4269 H Ferritin ALT Alkaline Phosphatase LD Total ASSESSMENT AND PLAN: Patient is a 44yof with PMhx of lymphoma in remission, ( 8 yr) presented to ED. with SOB and myalgias [id number] and was found to be on 68% on RA on admission as per ED. Notes. #Acute Hypoxic Respiratory Failure due to Covid 19: on Zinc/solu medrol/lovenox empirically , completed Plaquenil , on Cpap now, discussed with pulmonary dr negro , s/p high flow ,keep sao2 above 90%, continue CPAP, on IV solu medrol continue #COVID Pneumonia #Septic Shock resolved completed antibiotics zosyn and vancomycin. #Elevated LFTs #h/o Hodgkins Lymphoma #h/o DVTs DVT Px: lovenox 90mg bid pt does not want convalescent plasma
[2019-12-31] MEDS: METOPROLOL TARTRATE 5 MG/5 ML VIAL IVPUSH PRN (16:48)
[2020-01-01] MEDS: ALPRAZolam 0.25 MG TABLET PO PRN ×2 (02:03→15:23)
[2020-01-01] MEDS: ENOXAPARIN NA (PORCINE) 100 MG/1 ML DISP.SYRIN SQ SCH ×2 (09:46→21:09)
[2020-01-01] MEDS: ASCORBIC ACID 500 MG TABLET (FP) PO SCH (09:47)
[2020-01-01] MEDS: methylPREDNISolone NA SUCC 40 MG/1 ML VIAL IVPUSH SCH ×2 (09:47→21:10)
[2020-01-01] MEDS: PANTOPRAZOLE 40 MG TABLET PO SCH (09:47)
[2020-01-01] MEDS: LACTOBACILLUS ACIDOPHILUS 1 TABLET PO SCH (09:47)
[2020-01-01] MEDS: ZINC SULFATE 220 MG CAPSULE (FP) PO SCH (09:47)
[2020-01-01] MEDS: CHOLECALCIFEROL (VIT D3) 1,000 UNIT (25 MCG) TABLET PO SCH (09:47)
[2020-01-01 12:35] LABS: BASO % 0.3 % (0-2.0); EOS % 0.6 % (0-4.5); HEMATOCRIT 40.4 % (32.4-45.2); HEMOGLOBIN 13.1 GM/dL (10.7-15.3); LYMPH % 7.7 % (8-40); MCH 29.5 pg (25.7-33.7); MCHC 32.3 g/dl (32.0-36.0); MEAN CELL VOLUME 91.3 fl (80-96); MEAN PLT VOLUME 8.3 fl (7.5-11.1); MONO % 5.2 % (3.8-10.2); NEUT % 86.2 % (42.8-82.8); PLATELET COUNT 389 K/MM3 (134-434); RBC 4.42 M/mm3 (3.60-5.2); RDW 14.4 % (11.6-15.6); WHITE BLOOD COUNT 22.2 K/mm3 (4.0-10.0)
--- NOTE | 2020-01-01 12:36 | PN ---
Progress Note (short form) - Note Progress Note: PULMONARY NOW ON PAP/APPEARS STABLE VSS/AFEBRILE Gen: stable on pap Heart: tachycardic, regular Lung: scattered rales Abd: soft, nontender Ext: no edema Active Medications/labs/images/micro/notes reviewed INFLAMMATORY MARKERS NOTED ASSESSMENT AND PLAN Acute Hypoxic Respiratory Failure COVID Pneumonia ARDS resolved Septic Shock resolved Elevated LFTs h/o Hodgkins Lymphoma h/o DVTs - refused convalescent plasma - completed antibiotics - completed plaquenil course - empiric steroids - empiric anticoagulation - continue CPAP - titrate FiO2 to keep SpO2 >90% - pulse oximetry monitoring - continue current treatment plan Gene RIOS MD
[2020-01-01 13:20] LABS: ANISOCYTOSIS 0; MACROCYTOSIS 0; PLATELET ESTIMATE NORMAL
[2020-01-01 14:21] LABS: ALBUMIN 2.9 g/dl (3.4-5.0); BILIRUBIN,TOTAL 0.4 mg/dL (0.2-1); BLOOD UREA NITROGEN 11.3 mg/dL (7-18); CALCIUM 9.3 mg/dL (8.5-10.1); CREATININE 0.7 mg/dL (0.55-1.3); PHOSPHOROUS 3.4 mg/dL (2.5-4.9); POTASSIUM 3.9 mmol/L (3.5-5.1); TOT PROT 7.4 g/dl (6.4-8.2)
--- NOTE | 2020-01-01 14:46 | PN ---
Teaching Attending Note Name of Resident: Blaine Guerrero ATTENDING PHYSICIAN STATEMENT I saw and evaluated the patient. I reviewed the resident's note and discussed the case with the resident. I agree with the resident's findings and plan as documented. SUBJECTIVE: Patient is on CPAP, states that she feels better. Still hypoxic. OBJECTIVE: Vital Signs Temperature 97.5 F L 01/01/20 10:00 Pulse Rate 128 H 01/01/20 10:00 Respiratory Rate 21 H 01/01/20 10:00 Blood Pressure 122/93 01/01/20 10:00 O2 Sat by Pulse Oximetry (%) 91 L 01/01/20 08:15 PE:per resident's note CBCD WBC 22.2 K/mm3 (4.0-10.0) H 01/01/20 10:40 RBC 4.42 M/mm3 (3.60-5.2) 01/01/20 10:40 Hgb 13.1 GM/dL (10.7-15.3) 01/01/20 10:40 Hct 40.4 % (32.4-45.2) 01/01/20 10:40 MCV 91.3 fl (80-96) 01/01/20 10:40 MCHC 32.3 g/dl (32.0-36.0) 01/01/20 10:40 RDW 14.4 % (11.6-15.6) 01/01/20 10:40 Plt Count 389 K/MM3 (134-434) 01/01/20 10:40 MPV 8.3 fl (7.5-11.1) 01/01/20 10:40 CMP Sodium 136 mmol/L (136-145) 01/01/20 10:45 Potassium 3.9 mmol/L (3.5-5.1) 01/01/20 10:45 Chloride 97 mmol/L (98-107) L 01/01/20 10:45 Carbon Dioxide 29 mmol/L (21-32) 01/01/20 10:45 Anion Gap 10 MMOL/L (8-16) 01/01/20 10:45 BUN 11.3 mg/dL (7-18) 01/01/20 10:45 Creatinine 0.7 mg/dL (0.55-1.3) 01/01/20 10:45 Random Glucose 83 mg/dL (74-106) 01/01/20 10:45 Calcium 9.3 mg/dL (8.5-10.1) 01/01/20 10:45 Total Bilirubin 0.4 mg/dL (0.2-1) 01/01/20 10:45 AST 37 U/L (15-37) 01/01/20 10:45 ALT 93 U/L (13-61) H 01/01/20 10:45 Alkaline Phosphatase 199 U/L (45-117) H 01/01/20 10:45 Total Protein 7.4 g/dl (6.4-8.2) 01/01/20 10:45 Albumin 2.9 g/dl (3.4-5.0) L 01/01/20 10:45 CARDIAC ENZYMES Creatine Kinase 32 U/L (26-192) 12/29/19 07:10 Troponin I < 0.02 ng/ml (0.00-0.05) 12/19/19 13:13 Current Medications Generic Name Dose Route Start Last Admin Trade Name Freq PRN Reason Stop Dose Admin Acetaminophen 650 mg 12/28/19 15:59 Tylenol - PO Q6H PRN PAIN Albuterol Sulfate 2 puff 12/28/19 15:59 Ventolin Hfa Inhaler - IH Q4H PRN SHORT OF BREATH/WHEEZING Alprazolam 0.25 mg 12/28/19 15:59 01/01/20 02:03 Xanax - PO 0.25 mg Q6H PRN Administration ANXIETY Ascorbic Acid 500 mg 12/30/19 10:00 01/01/20 09:47 Vitamin C - PO 500 mg DAILY DARIEL Administration Cholecalciferol 1,000 unit 12/30/19 10:00 01/01/20 09:47 Vitamin D3 - PO 1,000 unit DAILY DARIEL Administration Enoxaparin Sodium 90 mg 12/28/19 22:00 01/01/20 09:46 Lovenox - SQ 90 mg BID DARIEL Administration Lactobacillus Acidophilus 1 tab 12/29/19 10:00 01/01/20 09:47 Bacid - PO 1 tab DAILY DARIEL Administration Methylprednisolone Sodium Succinate 50 mg 12/28/19 22:00 01/01/20 09:47 Solu-Medrol - IVPUSH 50 mg BID DARIEL Administration Metoprolol Tartrate 5 mg 12/29/19 17:46 12/31/19 16:48 Lopressor Injection - IVPUSH 5 mg Q4H PRN Administration TACHYCARDIA Pantoprazole Sodium 40 mg 12/29/19 10:00 01/01/20 09:47 Protonix - PO 40 mg DAILY DARIEL Administration Zinc Sulfate 220 mg 12/29/19 10:00 01/01/20 09:47 Orazinc - PO 220 mg DAILY DARIEL Administration Home Medications Medication Instructions Recorded Cetirizine HCl 10 mg PO DAILY 12/29/19 traZODone HCL [Trazodone HCl] 50 mg PO HS 12/29/19 ASSESSMENT AND PLAN: Patient is a 44yof with PMhx of lymphoma in remission, ( 8 yr) presented to ED. with SOB and myalgias [id number] and was found to be on 68% on RA on admission as per ED. Notes. #Acute Hypoxic Respiratory Failure due to Covid 19: on Zinc/solu medrol/lovenox empirically , completed Plaquenil , on Cpap continue , s/p high flow ,keep sao2 above 90%, continue CPAP, on IV solu medrol continue #COVID Pneumonia #Septic Shock resolved completed antibiotics zosyn and vancomycin. #Elevated LFTs monitor #h/o Hodgkins Lymphoma #h/o DVTs DVT Px: lovenox 90mg bid pt does not want convalescent plasma #Covid Positive: follow the markers Fibrinogen: CRP: 2.4-->2.2 DDimer: 7780-->3520 Ferritin:751-->723 LDH:725-->612 h/h: 11.7--. 13.1 creatinine: 2.7-->1.9-->3.2 ALT:71-->93 SNt893 02 sat: 91% om Cpap Lovenox 90mg bid Soul medrol: 50mg bid iv
--- NOTE | 2020-01-01 14:46 | PN ---
Physical Exam: SUBJECTIVE: Patient seen and examined at bedside with CPAP on 100% fio2. Overnight she experienced an episode of anxiety that precipitated an oxygen desaturation to 85% that resolved with anxiolytic, as well as sinus tachycardia to 130s that resolved with 5mg lopressor. This AM she c/o a dry throat. She says her SOB is the same. She denies cough, fever and CP. OBJECTIVE: Vital Signs Temp Pulse Resp BP Pulse Ox 100 F H 152 H 23 H 120/72 87 L 01/01/20 14:00 01/01/20 15:47 01/01/20 14:00 01/01/20 15:47 01/01/20 15:26 GENERAL: The patient is awake, alert, and fully oriented, in no acute distress. ENT:CPAP on face. LUNGS: Poor air entry b/l HEART: Tachycardic, regular rhythm ABDOMEN: Soft, nontender, nondistended, normoactive bowel sounds. EXTREMITIES: 2+ pulses, warm, well-perfused, no edema. NEUROLOGICAL: Cranial nerves II through XII grossly intact. PSYCH: Normal mood, normal affect. SKIN: Warm, dry, normal turgor, no rashes or lesions noted Laboratory Results - last 24 hr 01/01/20 01/01/20 01/01/20 10:40 10:45 10:45 WBC 22.2 H RBC 4.42 Hgb 13.1 Hct 40.4 MCV 91.3 MCH 29.5 MCHC 32.3 RDW 14.4 Plt Count 389 MPV 8.3 Absolute Neuts (auto) 19.2 H Neutrophils % 86.2 H Neutrophils % (Manual) 83.8 H Band Neutrophils % 0.0 Lymphocytes % 7.7 L D Lymphocytes % (Manual) 9.1 D Monocytes % 5.2 Monocytes % (Manual) 6 Eosinophils % 0.6 D Eosinophils % (Manual) 0.0 D Basophils % 0.3 Basophils % (Manual) 0.0 Myelocytes % (Man) 0 Promyelocytes % (Man) 0 D Blast Cells % (Manual) 0 Nucleated RBC % 0 Metamyelocytes 1 Hypochromia 0 Platelet Estimate Normal Polychromasia 1+ Poikilocytosis 0 Anisocytosis 0 Microcytosis 0 Macrocytosis 0 D-Dimer 3520 H Sodium 136 Potassium 3.9 Chloride 97 L Carbon Dioxide 29 Anion Gap 10 BUN 11.3 Creatinine 0.7 Est GFR (CKD-EPI)AfAm 123.86 Est GFR (CKD-EPI)NonAf 106.87 Random Glucose 83 Calcium 9.3 Phosphorus 3.4 Magnesium 2.0 Ferritin 723.1 H Total Bilirubin 0.4 AST 37 ALT 93 H Alkaline Phosphatase 199 H LD Total 612 H C-Reactive Protein 2.2 H Total Protein 7.4 Albumin 2.9 L Active Medications Generic Name Dose Route Start Last Admin Trade Name Freq PRN Reason Stop Dose Admin Acetaminophen 650 mg 12/28/19 15:59 Tylenol - PO Q6H PRN PAIN Albuterol Sulfate 2 puff 12/28/19 15:59 Ventolin Hfa Inhaler - IH Q4H PRN SHORT OF BREATH/WHEEZING Alprazolam 0.25 mg 12/28/19 15:59 01/01/20 02:03 Xanax - PO 0.25 mg Q6H PRN Administration ANXIETY Ascorbic Acid 500 mg 12/30/19 10:00 01/01/20 09:47 Vitamin C - PO 500 mg DAILY DARIEL Administration Cholecalciferol 1,000 unit 12/30/19 10:00 01/01/20 09:47 Vitamin D3 - PO 1,000 unit DAILY DARIEL Administration Enoxaparin Sodium 90 mg 12/28/19 22:00 01/01/20 09:46 Lovenox - SQ 90 mg BID DARIEL Administration Lactobacillus Acidophilus 1 tab 12/29/19 10:00 01/01/20 09:47 Bacid - PO 1 tab DAILY DARIEL Administration Methylprednisolone Sodium Succinate 50 mg 12/28/19 22:00 01/01/20 09:47 Solu-Medrol - IVPUSH 50 mg BID DARIEL Administration Metoprolol Tartrate 5 mg 12/29/19 17:46 12/31/19 16:48 Lopressor Injection - IVPUSH 5 mg Q4H PRN Administration TACHYCARDIA Pantoprazole Sodium 40 mg 12/29/19 10:00 01/01/20 09:47 Protonix - PO 40 mg DAILY DARIEL Administration Zinc Sulfate 220 mg 12/29/19 10:00 01/01/20 09:47 Orazinc - PO 220 mg DAILY DARIEL Administration ASSESSMENT/PLAN: 44 y/o female PMH Hodgkins' lymphoma s/p radiation and stem cell transplant (2011), appendectomy, cholecystectomy, anxiety, who presents with acute hypoxic respiratory failure 2/2 to CoVid-19 infection. During the day pt experienced an anxiety attack that precipitated an oxygen desaturation to 80% and sinus tachycardia to 150s that resolved with CPAP adjustment, anxiolytic, and 5mg lopressor. # Acute hypoxic respiratory failure 2/2 Covid-19 PNA - CoVid-19 + - QTC 479 - Saturating at 91% on CPAP - Solumedrol 50 BID - Lovenox 90 BID - albuterol inhaler - Educated pt on utility of laying lateral decubitus and prone if possible - Cont. to monitor inflammatory markers - Vitamin C, vitamin D, and zinc - Isolation precautions: Contact, droplet, airborne - Strict hand washing - Consult ID # Anxiety - Alprazolam 0.25 mg q6h prn - Episode of anxiety exacerbate hypoxia # FEN - PO, cautious with only brief period of having mask off. - Cont. to monitor - Liquid diet # DVT ppx - Lovenox 90 BID # Disposition - Saturating at 91% on CPAP - Full code Blaine Guerrero MD Visit type - Emergency Visit Emergency Visit: No - New Patient This patient is new to me today: Yes Date on this admission: 01/01/20 - Critical Care Critical Care patient: No ATTENDING PHYSICIAN STATEMENT I saw and evaluated the patient. I reviewed the resident's note and discussed the case with the resident. I agree with the resident's findings and plan as documented. SUBJECTIVE: OBJECTIVE: ASSESSMENT AND PLAN:
[2020-01-01] MEDS: METOPROLOL TARTRATE 5 MG/5 ML VIAL IVPUSH PRN (15:47)
--- NOTE | 2020-01-01 17:10 | CONSULT ---
Consultation: CONSULT SERVICE: ICU Resident HISTORY OF PRESENT ILLNESS: 44yo F with h/o Hodgkins lymphoma s/p radiation and stem cell (2011) and obesity who originally came due to shortness of breath admitted with suspected COVID-19 infection. She was saturating mid-90's on NRB when she had suddenly desaturated to low 80's. Patient was placed on CPAP 10 without any significant increase. We were asked to medically evaluate the patient due to her desaturation. Upon presentation primary team was attending to patient while she was on CPAP 10. She had been maintaining 85% on SpO2 and had significant anixety and work of breathing as a result. Patient was able to speak in broken sentences, however did not have significant accessory muscle use. No acute events happened on the night prior. REVIEW OF SYSTEMS: As per HPI PHYSICAL EXAMINATION Vital Signs - 24 hr 12/31/19 12/31/19 01/01/20 18:00 21:00 02:00 Temperature 98.6 F 98.8 F Pulse Rate 123 H 122 H Respiratory 26 H 19 Rate Blood Pressure 128/76 110/65 O2 Sat by Pulse 90 L Oximetry (%) 01/01/20 01/01/20 01/01/20 06:00 08:15 09:00 Temperature 97.4 F L Pulse Rate 118 H Respiratory 20 Rate Blood Pressure 120/78 O2 Sat by Pulse 91 L 90 L Oximetry (%) 01/01/20 01/01/20 01/01/20 10:00 12:09 14:00 Temperature 97.5 F L 100 F H Pulse Rate 128 H 124 H Respiratory 21 H 23 H Rate Blood Pressure 122/93 120/72 O2 Sat by Pulse 89 L Oximetry (%) 01/01/20 01/01/20 15:26 15:47 Temperature Pulse Rate 152 H Respiratory Rate Blood Pressure 120/72 O2 Sat by Pulse 87 L Oximetry (%) GENERAL: Awake, alert, and fully oriented, in no acute distress. HEENT: Nc/AT, TENISHA, on CPAP NECK: No JVD, no SCM use with respirations LUNGS: CPAP 10, dyspneic with bilateral chest rise and no significant accessory muscle use. SpO2 85% HEART: Tachycardic with regular rhythm, normal S1 and S2 without murmur ABDOMEN: Soft, NT/ND, no guarding EXTREMITIES: 2+ distal pulses, warm, well-perfused. No calf tenderness. No peripheral edema. PSYCHIATRIC: Cooperative. Good eye contact. Anxious. SKIN: Warm, dry, no rashes Laboratory Results - last 24 hr 01/01/20 01/01/20 01/01/20 10:40 10:45 10:45 WBC 22.2 H RBC 4.42 Hgb 13.1 Hct 40.4 MCV 91.3 MCH 29.5 MCHC 32.3 RDW 14.4 Plt Count 389 MPV 8.3 Absolute Neuts (auto) 19.2 H Neutrophils % 86.2 H Neutrophils % (Manual) 83.8 H Band Neutrophils % 0.0 Lymphocytes % 7.7 L D Lymphocytes % (Manual) 9.1 D Monocytes % 5.2 Monocytes % (Manual) 6 Eosinophils % 0.6 D Eosinophils % (Manual) 0.0 D Basophils % 0.3 Basophils % (Manual) 0.0 Myelocytes % (Man) 0 Promyelocytes % (Man) 0 D Blast Cells % (Manual) 0 Nucleated RBC % 0 Metamyelocytes 1 Hypochromia 0 Platelet Estimate Normal Polychromasia 1+ Poikilocytosis 0 Anisocytosis 0 Microcytosis 0 Macrocytosis 0 D-Dimer 3520 H Sodium 136 Potassium 3.9 Chloride 97 L Carbon Dioxide 29 Anion Gap 10 BUN 11.3 Creatinine 0.7 Est GFR (CKD-EPI)AfAm 123.86 Est GFR (CKD-EPI)NonAf 106.87 Random Glucose 83 Calcium 9.3 Phosphorus 3.4 Magnesium 2.0 Ferritin 723.1 H Total Bilirubin 0.4 AST 37 ALT 93 H Alkaline Phosphatase 199 H LD Total 612 H C-Reactive Protein 2.2 H Total Protein 7.4 Albumin 2.9 L Active Medications Generic Name Dose Route Start Last Admin Trade Name Freq PRN Reason Stop Dose Admin Acetaminophen 650 mg 12/28/19 15:59 Tylenol - PO Q6H PRN PAIN Albuterol Sulfate 2 puff 12/28/19 15:59 Ventolin Hfa Inhaler - IH Q4H PRN SHORT OF BREATH/WHEEZING Alprazolam 0.25 mg 12/28/19 15:59 01/01/20 15:23 Xanax - PO 0.25 mg Q6H PRN Administration ANXIETY Ascorbic Acid 500 mg 12/30/19 10:00 01/01/20 09:47 Vitamin C - PO 500 mg DAILY DARIEL Administration Cholecalciferol 1,000 unit 12/30/19 10:00 01/01/20 09:47 Vitamin D3 - PO 1,000 unit DAILY DARIEL Administration Enoxaparin Sodium 90 mg 12/28/19 22:00 01/01/20 09:46 Lovenox - SQ 90 mg BID DARIEL Administration Lactobacillus Acidophilus 1 tab 12/29/19 10:00 01/01/20 09:47 Bacid - PO 1 tab DAILY DARIEL Administration Methylprednisolone Sodium Succinate 50 mg 12/28/19 22:00 01/01/20 09:47 Solu-Medrol - IVPUSH 50 mg BID DARIEL Administration Metoprolol Tartrate 5 mg 12/29/19 17:46 01/01/20 15:47 Lopressor Injection - IVPUSH 5 mg Q4H PRN Administration TACHYCARDIA Pantoprazole Sodium 40 mg 12/29/19 10:00 01/01/20 09:47 Protonix - PO 40 mg DAILY DARIEL Administration Zinc Sulfate 220 mg 12/29/19 10:00 01/01/20 09:47 Orazinc - PO 220 mg DAILY DARIEL Administration ASSESSMENT/PLAN: Acute hypoxic respiratory failure 2/2 to COVID-19 pneumonitis Anxiety Transaminitis --Patient placed on AVAPS mode of NIPPV (350, 14-36, 100% FiO2) --Patient had significant leak and mask adjusted (maintain leak <50) --Subsequent increase in saturation to 91-93% with current mode and significant reduction in work of breathing clinically --Inflammatory markers continue to downtrend --Would maintin Medrol 0.5mg/kg IVP BID --Treat anxiety with continue anxiolytics preference towards non-benzodiazepine due to respiratory status --Continue therapeutic dose Lovenox BID --CXR ordered by primary team to f/u -- If significant interval change in effusions would give dose Lasix IVP --We will continue to monitor patient on the floor, however given improvement would recommend continuing care on telemetry floor with reassessments pending patient's respiratory status Case discussed with Dr. Juliana Sotelo, DO - IM PGY-3 Visit type - Emergency Visit Emergency Visit: Yes ED Registration Date: 12/19/19 Care time: The patient presented to the Emergency Department on the above date and was hospitalized for further evaluation of their emergent condition. - New Patient This patient is new to me today: No - Critical Care Critical Care patient: No ATTENDING PHYSICIAN STATEMENT I saw and evaluated the patient. I reviewed the resident's note and discussed the case with the resident. I agree with the resident's findings and plan as documented. SUBJECTIVE: OBJECTIVE: ASSESSMENT AND PLAN:
[2020-01-01] MEDS: FUROSEMIDE 40 MG/4 ML INJECTABLE VIAL IVPUSH ONE ×2 (17:46→19:30)
[2020-01-01 17:58] LABS: ARTERIAL BLD GAS O2 SATURATION 88.7 % (95-98); ARTERIAL BLOOD GAS PCO2 48.9 mmHg (35-45); ARTERIAL BLOOD GAS PO2 60.1 mmHg (80-100); ARTERIAL BLOOD GAS pH 7.41 (7.35-7.45)
[2020-01-01 18:06] LABS: ALLENS TEST POSITIVE
[2020-01-02 08:14] LABS: HEMATOCRIT 38.5 % (32.4-45.2); HEMOGLOBIN 12.7 GM/dL (10.7-15.3); MCH 29.9 pg (25.7-33.7); MEAN CELL VOLUME 90.5 fl (80-96); MEAN PLT VOLUME 8.3 fl (7.5-11.1); PLATELET COUNT 378 K/MM3 (134-434); RBC 4.26 M/mm3 (3.60-5.2); RDW 14.2 % (11.6-15.6); WHITE BLOOD COUNT 18.9 K/mm3 (4.0-10.0)
[2020-01-02 08:48] LABS: ALBUMIN 2.9 g/dl (3.4-5.0); BILIRUBIN,TOTAL 0.5 mg/dL (0.2-1); BLOOD UREA NITROGEN 17.2 mg/dL (7-18); CALCIUM 9.1 mg/dL (8.5-10.1); CREATININE 0.5 mg/dL (0.55-1.3); PHOSPHOROUS 4.9 mg/dL (2.5-4.9)
--- NOTE | 2020-01-02 09:27 | PN ---
Teaching Attending Note Name of Resident: Blaine Guerrero ATTENDING PHYSICIAN STATEMENT I saw and evaluated the patient. I reviewed the resident's note and discussed the case with the resident. I agree with the resident's findings and plan as documented. SUBJECTIVE: feels better continues to be on cpap OBJECTIVE: Vital Signs Temperature 97.7 F 01/02/20 06:00 Pulse Rate 117 H 01/02/20 06:00 Respiratory Rate 32 H 01/02/20 06:00 Blood Pressure 118/78 01/02/20 06:00 O2 Sat by Pulse Oximetry (%) 93 L 01/02/20 04:37 PE: per resident's note CBCD WBC 18.9 K/mm3 (4.0-10.0) H 01/02/20 06:45 RBC 4.26 M/mm3 (3.60-5.2) 01/02/20 06:45 Hgb 12.7 GM/dL (10.7-15.3) 01/02/20 06:45 Hct 38.5 % (32.4-45.2) 01/02/20 06:45 MCV 90.5 fl (80-96) 01/02/20 06:45 MCHC 33.0 g/dl (32.0-36.0) 01/02/20 06:45 RDW 14.2 % (11.6-15.6) 01/02/20 06:45 Plt Count 378 K/MM3 (134-434) 01/02/20 06:45 MPV 8.3 fl (7.5-11.1) 01/02/20 06:45 CMP Sodium 138 mmol/L (136-145) 01/02/20 06:45 Potassium 4.0 mmol/L (3.5-5.1) 01/02/20 06:45 Chloride 97 mmol/L (98-107) L 01/02/20 06:45 Carbon Dioxide 31 mmol/L (21-32) 01/02/20 06:45 Anion Gap 10 MMOL/L (8-16) 01/02/20 06:45 BUN 17.2 mg/dL (7-18) 01/02/20 06:45 Creatinine 0.5 mg/dL (0.55-1.3) L 01/02/20 06:45 Random Glucose 106 mg/dL (74-106) 01/02/20 06:45 Calcium 9.1 mg/dL (8.5-10.1) 01/02/20 06:45 Total Bilirubin 0.5 mg/dL (0.2-1) 01/02/20 06:45 AST 36 U/L (15-37) 01/02/20 06:45 ALT 91 U/L (13-61) H 01/02/20 06:45 Alkaline Phosphatase 177 U/L (45-117) H 01/02/20 06:45 Total Protein 7.0 g/dl (6.4-8.2) 01/02/20 06:45 Albumin 2.9 g/dl (3.4-5.0) L 01/02/20 06:45 CARDIAC ENZYMES Creatine Kinase 32 U/L (26-192) 12/29/19 07:10 Troponin I < 0.02 ng/ml (0.00-0.05) 12/19/19 13:13 Current Medications Generic Name Dose Route Start Last Admin Trade Name Freq PRN Reason Stop Dose Admin Acetaminophen 650 mg 12/28/19 15:59 Tylenol - PO Q6H PRN PAIN Albuterol Sulfate 2 puff 12/28/19 15:59 Ventolin Hfa Inhaler - IH Q4H PRN SHORT OF BREATH/WHEEZING Alprazolam 0.25 mg 12/28/19 15:59 01/01/20 15:23 Xanax - PO 0.25 mg Q6H PRN Administration ANXIETY Ascorbic Acid 500 mg 12/30/19 10:00 01/01/20 09:47 Vitamin C - PO 500 mg DAILY DARIEL Administration Cholecalciferol 1,000 unit 12/30/19 10:00 01/01/20 09:47 Vitamin D3 - PO 1,000 unit DAILY DARIEL Administration Enoxaparin Sodium 90 mg 12/28/19 22:00 01/01/20 21:09 Lovenox - SQ 90 mg BID DARIEL Administration Lactobacillus Acidophilus 1 tab 12/29/19 10:00 01/01/20 09:47 Bacid - PO 1 tab DAILY DARIEL Administration Methylprednisolone Sodium Succinate 50 mg 12/28/19 22:00 01/01/20 21:10 Solu-Medrol - IVPUSH 50 mg BID DARIEL Administration Metoprolol Tartrate 5 mg 12/29/19 17:46 01/01/20 15:47 Lopressor Injection - IVPUSH 5 mg Q4H PRN Administration TACHYCARDIA Pantoprazole Sodium 40 mg 12/29/19 10:00 01/01/20 09:47 Protonix - PO 40 mg DAILY DARIEL Administration Zinc Sulfate 220 mg 12/29/19 10:00 01/01/20 09:47 Orazinc - PO 220 mg DAILY DARIEL Administration Home Medications Medication Instructions Recorded Cetirizine HCl 10 mg PO DAILY 12/29/19 traZODone HCL [Trazodone HCl] 50 mg PO HS 12/29/19 Microbiology 12/20/19 10:35 Blood - Peripheral Venous Blood Culture - Final NO GROWTH AFTER 5 DAYS INCUBATION 12/21/19 05:24 Sputum - Expectorated Gram Stain - Final 12/21/19 05:24 Sputum - Expectorated Sputum Culture - Final NORMAL RESPIRATORY CRISSY 12/20/19 22:15 Urine - Urine Clean Catch Legionella Antigen - Final 12/20/19 22:15 Urine - Urine Clean Catch Streptococcus pneumoniae Antigen (M - Final ASSESSMENT AND PLAN: Patient is a 44yof with PMhx of lymphoma in remission, ( 8 yr) presented to ED. with SOB and myalgias [id number] and was found to be on 68% on RA on admission as per ED. Notes. #Acute Hypoxic Respiratory Failure due to Covid 19: on Zinc/solu medrol/lovenox empirically , completed Plaquenil , on Cpap continue , s/p high flow ,keep sao2 above 90%, continue CPAP, on IV solu medrol continue #COVID Pneumonia #Septic Shock resolved completed antibiotics zosyn and vancomycin. #Elevated LFTs monitor #h/o Hodgkins Lymphoma #h/o DVTs DVT Px: lovenox 90mg bid pt does not want convalescent plasma #Covid Positive: follow the markers Fibrinogen: CRP: 2.4-->2.2 --2.1 DDimer: 7780-->3520 Ferritin:751-->723--700 LDH:725-->612--493 h/h: 11.7--. 13.1 creatinine: 2.7-->1.9-->3.2 ALT:71-->93 [id number] sat: 91% om Cpap 100% fio2 Lovenox 90mg bid Soul medrol: 50mg bid iv lymphocytes :9.1
[2020-01-02] MEDS: methylPREDNISolone NA SUCC 40 MG/1 ML VIAL IVPUSH SCH ×2 (10:09→22:47)
[2020-01-02] MEDS: PANTOPRAZOLE 40 MG TABLET PO SCH (10:11)
[2020-01-02] MEDS: CHOLECALCIFEROL (VIT D3) 1,000 UNIT (25 MCG) TABLET PO SCH (10:11)
[2020-01-02] MEDS: ENOXAPARIN NA (PORCINE) 100 MG/1 ML DISP.SYRIN SQ SCH (10:11)
[2020-01-02] MEDS: LACTOBACILLUS ACIDOPHILUS 1 TABLET PO SCH (10:11)
[2020-01-02] MEDS: ZINC SULFATE 220 MG CAPSULE (FP) PO SCH (10:12)
[2020-01-02] MEDS: ASCORBIC ACID 500 MG TABLET (FP) PO SCH (10:12)
[2020-01-02] MEDS ORDERED: MAGNESIUM SULF 50% (8.12 MEQ/2 ML-1 GM VIAL) IVPB ONE (11:15)
--- NOTE | 2020-01-02 11:50 | PN ---
Physical Exam: SUBJECTIVE: Patient seen and examined at bedside with CPAP on 100% fio2, Vt 475, epap 10. Overnight she experienced an episode of anxiety that precipitated an oxygen desaturation to 85% that resolved with anxiolytic, as well as sinus tachycardia to 130s that resolved with 5mg lopressor. This AM she c/o anxiety. She says her SOB is the same. She denies cough, fever and CP. OBJECTIVE: Vital Signs Temp Pulse Resp BP Pulse Ox 98.0 F 152 H 24 H 123/72 91 L 01/02/20 10:22 01/02/20 12:59 01/02/20 12:44 01/02/20 12:59 01/02/20 08:00 GENERAL: The patient is awake, alert, and fully oriented, in no acute distress. ENT:CPAP on face. LUNGS: Poor air entry b/l HEART: Tachycardic, regular rhythm ABDOMEN: Soft, nontender, nondistended, normoactive bowel sounds. EXTREMITIES: 2+ pulses, warm, well-perfused, no edema. NEUROLOGICAL: Cranial nerves II through XII grossly intact. PSYCH: Normal mood, normal affect. SKIN: Warm, dry, normal turgor, no rashes or lesions noted Laboratory Results - last 24 hr 01/01/20 01/01/20 01/01/20 10:40 10:45 10:45 WBC 22.2 H RBC 4.42 Hgb 13.1 Hct 40.4 MCV 91.3 MCH 29.5 MCHC 32.3 RDW 14.4 Plt Count 389 MPV 8.3 Absolute Neuts (auto) 19.2 H Neutrophils % 86.2 H Neutrophils % (Manual) 83.8 H Band Neutrophils % 0.0 Lymphocytes % 7.7 L D Lymphocytes % (Manual) 9.1 D Monocytes % 5.2 Monocytes % (Manual) 6 Eosinophils % 0.6 D Eosinophils % (Manual) 0.0 D Basophils % 0.3 Basophils % (Manual) 0.0 Myelocytes % (Man) 0 Promyelocytes % (Man) 0 D Blast Cells % (Manual) 0 Nucleated RBC % 0 Metamyelocytes 1 Hypochromia 0 Platelet Estimate Normal Polychromasia 1+ Poikilocytosis 0 Anisocytosis 0 Microcytosis 0 Macrocytosis 0 D-Dimer 3520 H Anticoagulation Therapy Puncture Site ABG pH ABG pCO2 at Pt Temp ABG pO2 at Pt Temp ABG HCO3 ABG O2 Sat (Measured) ABG O2 Content ABG Base Excess Lake Test Patient On Oxygen O2 Delivery Device Oxygen Flow Rate Vent Mode Vent Rate Mechanical Rate PEEP Pressure Support Vent Sodium 136 Potassium 3.9 Chloride 97 L Carbon Dioxide 29 Anion Gap 10 BUN 11.3 Creatinine 0.7 Est GFR (CKD-EPI)AfAm 123.86 Est GFR (CKD-EPI)NonAf 106.87 Random Glucose 83 Calcium 9.3 Phosphorus 3.4 Magnesium 2.0 Ferritin 723.1 H Total Bilirubin 0.4 AST 37 ALT 93 H Alkaline Phosphatase 199 H LD Total 612 H C-Reactive Protein 2.2 H Total Protein 7.4 Albumin 2.9 L 01/01/20 01/02/20 01/02/20 17:10 06:45 06:45 WBC 18.9 H RBC 4.26 Hgb 12.7 Hct 38.5 MCV 90.5 MCH 29.9 MCHC 33.0 RDW 14.2 Plt Count 378 MPV 8.3 Absolute Neuts (auto) Neutrophils % Neutrophils % (Manual) Band Neutrophils % Lymphocytes % Lymphocytes % (Manual) Monocytes % Monocytes % (Manual) Eosinophils % Eosinophils % (Manual) Basophils % Basophils % (Manual) Myelocytes % (Man) Promyelocytes % (Man) Blast Cells % (Manual) Nucleated RBC % Metamyelocytes Hypochromia Platelet Estimate Polychromasia Poikilocytosis Anisocytosis Microcytosis Macrocytosis D-Dimer Anticoagulation Therapy No Result Required. Puncture Site No Result Required. ABG pH 7.41 ABG pCO2 at Pt Temp 48.9 H ABG pO2 at Pt Temp 60.1 L ABG HCO3 30.3 H ABG O2 Sat (Measured) 88.7 L ABG O2 Content 18.6 ABG Base Excess 5.0 H Lake Test Positive Patient On Oxygen Yes O2 Delivery Device No Result Required. Oxygen Flow Rate 100 Vent Mode Avaps Vent Rate 16 Mechanical Rate No Result Required. PEEP 10.0 Pressure Support Vent 475 Sodium 138 Potassium 4.0 Chloride 97 L Carbon Dioxide 31 Anion Gap 10 BUN 17.2 Creatinine 0.5 L Est GFR (CKD-EPI)AfAm 138.36 Est GFR (CKD-EPI)NonAf 119.38 Random Glucose 106 Calcium 9.1 Phosphorus 4.9 Magnesium 2.0 Ferritin 700.3 H Total Bilirubin 0.5 AST 36 ALT 91 H Alkaline Phosphatase 177 H LD Total 493 H C-Reactive Protein 2.1 H Total Protein 7.0 Albumin 2.9 L 01/02/20 06:45 WBC RBC Hgb Hct MCV MCH MCHC RDW Plt Count MPV Absolute Neuts (auto) Neutrophils % Neutrophils % (Manual) Band Neutrophils % Lymphocytes % Lymphocytes % (Manual) Monocytes % Monocytes % (Manual) Eosinophils % Eosinophils % (Manual) Basophils % Basophils % (Manual) Myelocytes % (Man) Promyelocytes % (Man) Blast Cells % (Manual) Nucleated RBC % Metamyelocytes Hypochromia Platelet Estimate Polychromasia Poikilocytosis Anisocytosis Microcytosis Macrocytosis D-Dimer 2420 H Anticoagulation Therapy Puncture Site ABG pH ABG pCO2 at Pt Temp ABG pO2 at Pt Temp ABG HCO3 ABG O2 Sat (Measured) ABG O2 Content ABG Base Excess [place] Test Patient On Oxygen O2 Delivery Device Oxygen Flow Rate Vent Mode Vent Rate Mechanical Rate PEEP Pressure Support Vent Sodium Potassium Chloride Carbon Dioxide Anion Gap BUN Creatinine Est GFR (CKD-EPI)AfAm Est GFR (CKD-EPI)NonAf Random Glucose Calcium Phosphorus Magnesium Ferritin Total Bilirubin AST ALT Alkaline Phosphatase LD Total C-Reactive Protein Total Protein Albumin Active Medications Generic Name Dose Route Start Last Admin Trade Name Freq PRN Reason Stop Dose Admin Acetaminophen 650 mg 12/28/19 15:59 Tylenol - PO Q6H PRN PAIN Albuterol Sulfate 2 puff 12/28/19 15:59 Ventolin Hfa Inhaler - IH Q4H PRN SHORT OF BREATH/WHEEZING Alprazolam 0.25 mg 12/28/19 15:59 01/01/20 15:23 Xanax - PO 0.25 mg Q6H PRN Administration ANXIETY Ascorbic Acid 500 mg 12/30/19 10:00 01/02/20 10:12 Vitamin C - PO 500 mg DAILY DARIEL Administration Cholecalciferol 1,000 unit 12/30/19 10:00 01/02/20 10:11 Vitamin D3 - PO 1,000 unit DAILY DARIEL Administration Enoxaparin Sodium 90 mg 12/28/19 22:00 01/02/20 10:11 Lovenox - SQ 90 mg BID DARIEL Administration Lactobacillus Acidophilus 1 tab 12/29/19 10:00 01/02/20 10:11 Bacid - PO 1 tab DAILY DARIEL Administration Methylprednisolone Sodium Succinate 50 mg 12/28/19 22:00 01/02/20 10:09 Solu-Medrol - IVPUSH 50 mg BID DARIEL Administration Metoprolol Tartrate 5 mg 12/29/19 17:46 01/01/20 15:47 Lopressor Injection - IVPUSH 5 mg Q4H PRN Administration TACHYCARDIA Pantoprazole Sodium 40 mg 12/29/19 10:00 01/02/20 10:11 Protonix - PO 40 mg DAILY DARIEL Administration Zinc Sulfate 220 mg 12/29/19 10:00 01/02/20 10:12 Orazinc - PO 220 mg DAILY DARIEL Administration ASSESSMENT/PLAN: 44 y/o female PMH Hodgkins' lymphoma s/p radiation and stem cell transplant (2011), appendectomy, cholecystectomy, anxiety, who presents with acute hypoxic respiratory failure 2/2 to CoVid-19 infection. # Sinus tachycardia - Possibly 2/2 volume depletion - Possibly 2/2 anxiety - 3 acute episodes that precipitate oxygen desaturation - 250 cc bolus once, encourage PO intake with caution to minimize time off of CPAP - Lospressor 5 mg for repeat episodes - Consult cardiology # Acute hypoxic respiratory failure 2/2 Covid-19 PNA - CoVid-19 + - QTC 464 - Saturating at 93% on CPAP AVAPS mode of NIPPV (350, 14-36, 100% FiO2) - Solumedrol 50 BID - Lovenox 90 BID - Albuterol inhaler - Educated pt on utility of laying lateral decubitus and prone if possible - Cont. to monitor inflammatory markers. Today d-dimer is down, ferritin is down , LDH is down, and CRP is down - Vitamin C, vitamin D, and zinc - Isolation precautions: Contact, droplet, airborne - Strict hand washing - Consult ID # Anxiety - Alprazolam 0.25 mg BID - Alprazolam 0.25 mg q6h prn - Episodes of anxiety exacerbate hypoxia # FEN - PO, cautious with only brief period of having mask off. - Cont. to monitor - Liquid diet # DVT ppx - Lovenox 90 BID # Disposition - Saturating at 93% on CPAP - Full code Blaine Guerrero MD Visit type - Emergency Visit Emergency Visit: No - New Patient This patient is new to me today: No - Critical Care Critical Care patient: No ATTENDING PHYSICIAN STATEMENT I saw and evaluated the patient. I reviewed the resident's note and discussed the case with the resident. I agree with the resident's findings and plan as documented. SUBJECTIVE: OBJECTIVE: ASSESSMENT AND PLAN:
[2020-01-02] MEDS: METOPROLOL TARTRATE 5 MG/5 ML VIAL IVPUSH PRN (12:59)
[2020-01-02] MEDS ORDERED: SODIUM CHLORIDE 250 ML IV STA (13:14)
--- NOTE | 2020-01-02 13:31 | PN ---
Progress Note (short form) - Note Progress Note: PULMONARY ON AVAPS/100% SPO2 91% VSS/AFEBRILE/TACHYPNEIC Gen: diaphoretic/anxious Heart: tachycardic, regular Lung: scattered rales Abd: soft, nontender Ext: no edema Active Medications/labs/images/micro/notes reviewed INFLAMMATORY MARKERS NOTED ASSESSMENT AND PLAN Acute Hypoxic Respiratory Failure COVID Pneumonia Tachycardia ARDS resolved Septic Shock resolved Elevated LFTs h/o Hodgkins Lymphoma h/o DVTs - Lopressor given ivp/cardiology consult requested - Cxr/abg ordered - refused convalescent plasma - completed antibiotics - completed plaquenil course - empiric steroids - empiric anticoagulation - will discuss with primary team - titrate FiO2 to keep SpO2 >90% - pulse oximetry monitoring Gene RIOS MD
[2020-01-02 14:17] LABS: ALLENS TEST POSITIVE; ARTERIAL BLD GAS O2 SATURATION 91.4 % (95-98); ARTERIAL BLOOD GAS BASE EXCESS 6.2 mmol/L (-2-2); ARTERIAL BLOOD GAS PCO2 44.8 mmHg (35-45); ARTERIAL BLOOD GAS PO2 65.8 mmHg (80-100); ARTERIAL BLOOD GAS pH 7.45 (7.35-7.45)
--- NOTE | 2020-01-02 16:08 | CON.CARD ---
Consult Consult Specialty:: Cardiology - History of Present Illness History of Present Illness: 44yof with PMhx of lymphoma in remission, ( 8 yr) presented to ED. with SOB and myalgias [id number] and was found to be on 68% on RA on admission as per ED. Notes. DX with COVID PNA Developed septic shock ARDS PMH Acute Hypoxic Respiratory Failure due to ARDS due to COVID19 Pneumonitis Septic Shock Transaminitis Hodgkins lymphoma s/p radiation and stem cell transplant in 2011 - History Source History Provided By: Patient, Medical Record - Past Medical History ...LMP: 05/18/18 - Alcohol/Substance Use Hx Alcohol Use: No - Smoking History Smoking history: Never smoked Have you smoked in the past 12 months: No Aproximately how many cigarettes per day: 0 If you are a former smoker, when did you quit?: NEW YEARS Home Medications - Allergies Allergies/Adverse Reactions: Allergies Allergy/AdvReac Type Severity Reaction Status Date / Time No Known Allergies Allergy Verified 05/21/18 13:03 - Home Medications Home Medications: Ambulatory Orders Cetirizine HCl 10 mg PO DAILY 12/29/19 traZODone HCL [Trazodone HCl] 50 mg PO HS 12/29/19 Review of Systems - Review of Systems Constitutional: reports: No Symptoms Eyes: reports: No Symptoms HENT: reports: No Symptoms Neck: reports: No Symptoms Cardiovascular: reports: Shortness of Breath Respiratory: reports: SOB Gastrointestinal: reports: No Symptoms Genitourinary: reports: No Symptoms Breasts: reports: No Symptoms Reported Musculoskeletal: reports: No Symptoms Integumentary: reports: No Symptoms Neurological: reports: No Symptoms Endocrine: reports: No Symptoms Hematology/Lymphatic: reports: No Symptoms Psychiatric: reports: No Symptoms Vital Signs: Vital Signs Temperature 98.8 F 01/02/20 14:43 Pulse Rate 121 H 01/02/20 14:43 Respiratory Rate 24 H 01/02/20 14:43 Blood Pressure 115/75 01/02/20 14:43 O2 Sat by Pulse Oximetry (%) 91 L 01/02/20 14:54 Constitutional: Yes: Anxious, Moderate Distress Eyes: Yes: WNL, Conjunctiva Clear, EOM Intact HENT: Yes: WNL, Atraumatic, Normocephalic Neck: Yes: WNL, Supple, Trachea Midline Respiratory: Yes: Diminished Gastrointestinal: Yes: WNL, Normal Bowel Sounds Renal/: Yes: WNL Cardiovascular: Yes: Tachycardia Heart Sounds: Yes: S1, S2 Musculoskeletal: Yes: WNL Extremities: Yes: WNL Integumentary: Yes: WNL Neurological: Yes: WNL, Alert, Oriented ...Motor Strength: WNL Psychiatric: Yes: WNL, Alert, Oriented - Other Data Labs, Other Data: CBC, BMP 01/02/20 06:45 01/02/20 06:45 INR, PTT INR 1.25 (0.83-1.09) H 12/19/19 13:13 Laboratory Tests 12/19/19 12/19/19 12/19/19 13:13 13:13 13:13 WBC 8.2 RBC 4.06 Hgb 12.1 Hct 36.0 MCV 88.8 MCH 29.9 MCHC 33.7 RDW 14.0 Plt Count 243 MPV 7.1 L Absolute Neuts (auto) 7.1 Neutrophils % 87.2 H D Neutrophils % (Manual) Band Neutrophils % Lymphocytes % 5.4 L D Lymphocytes % (Manual) Monocytes % 7.2 Monocytes % (Manual) Eosinophils % 0.1 D Eosinophils % (Manual) Basophils % 0.1 Basophils % (Manual) Myelocytes % (Man) Promyelocytes % (Man) Blast Cells % (Manual) Nucleated RBC % 0 Metamyelocytes Hypochromia Platelet Estimate Platelet Comment Polychromasia Poikilocytosis Anisocytosis Microcytosis Macrocytosis Ovalocytes PT with INR 14.80 H INR 1.25 H PTT (Actin FS) 28.8 D-Dimer Anticoagulation Therapy Puncture Site ABG pH ABG pCO2 at Pt Temp ABG pO2 at Pt Temp ABG HCO3 ABG O2 Sat (Measured) ABG O2 Content ABG Base Excess [place] Test VBG pH POC VBG pCO2 POC VBG pO2 VBG HCO3 VBG O2 Sat ([place]) VBG Base Excess Patient On Oxygen O2 Delivery Device Oxygen Flow Rate Vent Mode Vent Rate Mechanical Rate PEEP Pressure Support Vent Sodium Potassium Chloride Carbon Dioxide Anion Gap BUN Creatinine Est GFR (CKD-EPI)AfAm Est GFR (CKD-EPI)NonAf POC Glucometer Random Glucose Lactic Acid Calcium Phosphorus Magnesium Ferritin Total Bilirubin Direct Bilirubin AST ALT Alkaline Phosphatase LD Total Creatine Kinase Troponin I C-Reactive Protein Total Protein Albumin Serum , Qual Negative COVID-19 ([facility]) Hep A IgM Ab Confirm Hep Bs Antigen Hep B Core IgM Ab Hepatitis C Ab (EIA) 12/19/19 12/19/19 12/19/19 13:13 13:13 13:25 WBC RBC Hgb Hct MCV MCH MCHC RDW Plt Count MPV Absolute Neuts (auto) Neutrophils % Neutrophils % (Manual) Band Neutrophils % Lymphocytes % Lymphocytes % (Manual) Monocytes % Monocytes % (Manual) Eosinophils % Eosinophils % (Manual) Basophils % Basophils % (Manual) Myelocytes % (Man) Promyelocytes % (Man) Blast Cells % (Manual) Nucleated RBC % Metamyelocytes Hypochromia Platelet Estimate Platelet Comment Polychromasia Poikilocytosis Anisocytosis Microcytosis Macrocytosis Ovalocytes PT with INR INR PTT (Actin FS) D-Dimer Anticoagulation Therapy Puncture Site ABG pH ABG pCO2 at Pt Temp ABG pO2 at Pt Temp ABG HCO3 ABG O2 Sat (Measured) ABG O2 Content ABG Base Excess [place] Test VBG pH 7.44 H POC VBG pCO2 40.2 POC VBG pO2 < 49 H VBG HCO3 26.7 VBG O2 Sat ([place]) 59.1 L VBG Base Excess 2.8 H Patient On Oxygen O2 Delivery Device Oxygen Flow Rate Vent Mode Vent Rate Mechanical Rate PEEP Pressure Support Vent Sodium 131 L Potassium 4.6 Chloride 99 Carbon Dioxide 23 Anion Gap 9 BUN 7.2 Creatinine 0.9 Est GFR (CKD-EPI)AfAm 91.40 Est GFR (CKD-EPI)NonAf 78.86 POC Glucometer Random Glucose 127 H Lactic Acid 2.2 H* Calcium 8.4 L Phosphorus Magnesium Ferritin Total Bilirubin 0.9 Direct Bilirubin 0.3 H AST 144 H ALT 123 H Alkaline Phosphatase 195 H LD Total 725 H Creatine Kinase 128 Troponin I < 0.02 C-Reactive Protein Total Protein 7.5 Albumin 2.9 L Serum , Qual COVID-19 ([facility]) Hep A IgM Ab Confirm Hep Bs Antigen Hep B Core IgM Ab Hepatitis C Ab (EIA) 12/19/19 12/19/19 12/19/19 13:25 19:10 19:10 WBC RBC Hgb Hct MCV MCH MCHC RDW Plt Count MPV Absolute Neuts (auto) Neutrophils % Neutrophils % (Manual) Band Neutrophils % Lymphocytes % Lymphocytes % (Manual) Monocytes % Monocytes % (Manual) Eosinophils % Eosinophils % (Manual) Basophils % Basophils % (Manual) Myelocytes % (Man) Promyelocytes % (Man) Blast Cells % (Manual) Nucleated RBC % Metamyelocytes Hypochromia Platelet Estimate Platelet Comment Polychromasia Poikilocytosis Anisocytosis Microcytosis Macrocytosis Ovalocytes PT with INR INR PTT (Actin FS) D-Dimer 2244 H Anticoagulation Therapy Puncture Site ABG pH ABG pCO2 at Pt Temp ABG pO2 at Pt Temp ABG HCO3 ABG O2 Sat (Measured) ABG O2 Content ABG Base Excess [place] Test VBG pH POC VBG pCO2 POC VBG pO2 VBG HCO3 VBG O2 Sat ([place]) VBG Base Excess Patient On Oxygen O2 Delivery Device Oxygen Flow Rate Vent Mode Vent Rate Mechanical Rate PEEP Pressure Support Vent Sodium 136 Potassium 3.9 Chloride 103 Carbon Dioxide 26 Anion Gap 6 L BUN 6.0 L Creatinine 0.7 Est GFR (CKD-EPI)AfAm 123.86 Est GFR (CKD-EPI)NonAf 106.87 POC Glucometer Random Glucose 124 H Lactic Acid Calcium 7.9 L Phosphorus Magnesium Ferritin Total Bilirubin 0.9 Direct Bilirubin AST 114 H ALT 111 H Alkaline Phosphatase 179 H LD Total Creatine Kinase Troponin I C-Reactive Protein Total Protein 6.6 Albumin 2.6 L Serum , Qual COVID-19 ([facility]) Detected H Hep A IgM Ab Confirm Hep Bs Antigen Hep B Core IgM Ab Hepatitis C Ab (EIA) 12/19/19 12/20/19 12/20/19 19:30 06:15 06:15 WBC 7.1 RBC 3.61 Hgb 10.9 Hct 32.3 L MCV 89.4 MCH 30.2 MCHC 33.7 RDW 14.0 Plt Count 239 MPV 6.9 L Absolute Neuts (auto) 6.1 Neutrophils % 85.7 H Neutrophils % (Manual) Band Neutrophils % Lymphocytes % 8.3 D Lymphocytes % (Manual) Monocytes % 5.0 Monocytes % (Manual) Eosinophils % 0.8 D Eosinophils % (Manual) Basophils % 0.2 Basophils % (Manual) Myelocytes % (Man) Promyelocytes % (Man) Blast Cells % (Manual) Nucleated RBC % 0 Metamyelocytes Hypochromia Platelet Estimate Platelet Comment Polychromasia Poikilocytosis Anisocytosis Microcytosis Macrocytosis Ovalocytes PT with INR INR PTT (Actin FS) 34.4 D-Dimer Anticoagulation Therapy Puncture Site ABG pH ABG pCO2 at Pt Temp ABG pO2 at Pt Temp ABG HCO3 ABG O2 Sat (Measured) ABG O2 Content ABG Base Excess [place] Test VBG pH POC VBG pCO2 POC VBG pO2 VBG HCO3 VBG O2 Sat ([place]) VBG Base Excess Patient On Oxygen O2 Delivery Device Oxygen Flow Rate Vent Mode Vent Rate Mechanical Rate PEEP Pressure Support Vent Sodium Potassium Chloride Carbon Dioxide Anion Gap BUN Creatinine Est GFR (CKD-EPI)AfAm Est GFR (CKD-EPI)NonAf POC Glucometer Random Glucose Lactic Acid 1.1 Calcium Phosphorus Magnesium Ferritin Total Bilirubin Direct Bilirubin AST ALT Alkaline Phosphatase LD Total Creatine Kinase Troponin I C-Reactive Protein Total Protein Albumin Serum , Qual COVID-19 ([facility]) Hep A IgM Ab Confirm Hep Bs Antigen Hep B Core IgM Ab Hepatitis C Ab (EIA) 12/20/19 12/20/19 12/20/19 06:15 06:15 19:08 WBC RBC Hgb Hct MCV MCH MCHC RDW Plt Count MPV Absolute Neuts (auto) Neutrophils % Neutrophils % (Manual) Band Neutrophils % Lymphocytes % Lymphocytes % (Manual) Monocytes % Monocytes % (Manual) Eosinophils % Eosinophils % (Manual) Basophils % Basophils % (Manual) Myelocytes % (Man) Promyelocytes % (Man) Blast Cells % (Manual) Nucleated RBC % Metamyelocytes Hypochromia Platelet Estimate Platelet Comment Polychromasia Poikilocytosis Anisocytosis Microcytosis Macrocytosis Ovalocytes PT with INR INR PTT (Actin FS) D-Dimer Anticoagulation Therapy Puncture Site ABG pH ABG pCO2 at Pt Temp ABG pO2 at Pt Temp ABG HCO3 ABG O2 Sat (Measured) ABG O2 Content ABG Base Excess [place] Test VBG pH POC VBG pCO2 POC VBG pO2 VBG HCO3 VBG O2 Sat ([place]) VBG Base Excess Patient On Oxygen O2 Delivery Device Oxygen Flow Rate Vent Mode Vent Rate Mechanical Rate PEEP Pressure Support Vent Sodium 138 Potassium 3.7 Chloride 105 Carbon Dioxide 27 Anion Gap 7 L BUN 4.8 L Creatinine 0.6 Est GFR (CKD-EPI)AfAm 130.30 Est GFR (CKD-EPI)NonAf 112.42 POC Glucometer Random Glucose 122 H Lactic Acid 1.7 Calcium 7.6 L Phosphorus 2.4 L Magnesium 2.5 H Ferritin 614.5 H Total Bilirubin 1.4 H Direct Bilirubin AST 100 H ALT 109 H Alkaline Phosphatase 198 H LD Total 590 H Creatine Kinase Troponin I C-Reactive Protein 21.2 H Total Protein 6.5 Albumin 2.7 L Serum , Qual COVID-19 ([facility]) Hep A IgM Ab Confirm Negative Hep Bs Antigen Negative Hep B Core IgM Ab Negative Hepatitis C Ab (EIA) <0.1 12/21/19 12/21/19 12/22/19 06:36 06:36 09:00 WBC 9.5 15.5 H RBC 3.34 L 3.64 Hgb 10.1 L 10.9 Hct 29.5 L 32.5 MCV 88.3 89.3 MCH 30.3 29.9 MCHC 34.3 33.5 RDW 13.6 13.8 Plt Count 280 325 MPV 7.0 L 7.5 Absolute Neuts (auto) 8.3 H Neutrophils % 87.8 H Neutrophils % (Manual) Band Neutrophils % Lymphocytes % 6.3 L D Lymphocytes % (Manual) Monocytes % 5.3 Monocytes % (Manual) Eosinophils % 0.4 Eosinophils % (Manual) Basophils % 0.2 Basophils % (Manual) Myelocytes % (Man) Promyelocytes % (Man) Blast Cells % (Manual) Nucleated RBC % 0 Metamyelocytes Hypochromia Platelet Estimate Platelet Comment Polychromasia Poikilocytosis Anisocytosis Microcytosis Macrocytosis Ovalocytes PT with INR INR PTT (Actin FS) D-Dimer Anticoagulation Therapy Puncture Site ABG pH ABG pCO2 at Pt Temp ABG pO2 at Pt Temp ABG HCO3 ABG O2 Sat (Measured) ABG O2 Content ABG Base Excess [place] Test VBG pH POC VBG pCO2 POC VBG pO2 VBG HCO3 VBG O2 Sat ([place]) VBG Base Excess Patient On Oxygen O2 Delivery Device Oxygen Flow Rate Vent Mode Vent Rate Mechanical Rate PEEP Pressure Support Vent Sodium 135 L Potassium 3.3 L Chloride 97 L Carbon Dioxide 29 Anion Gap 9 BUN 5.9 L Creatinine 0.7 Est GFR (CKD-EPI)AfAm 123.86 Est GFR (CKD-EPI)NonAf 106.87 POC Glucometer Random Glucose 97 Lactic Acid Calcium 7.6 L Phosphorus Magnesium Ferritin Total Bilirubin 1.3 H Direct Bilirubin AST 58 H ALT 79 H Alkaline Phosphatase 200 H LD Total Creatine Kinase Troponin I C-Reactive Protein Total Protein 6.2 L Albumin 2.5 L Serum , Qual COVID-19 ([facility]) Hep A IgM Ab Confirm Hep Bs Antigen Hep B Core IgM Ab Hepatitis C Ab (EIA) 12/22/19 12/22/19 12/23/19 09:00 09:00 05:30 WBC RBC Hgb Hct MCV MCH MCHC RDW Plt Count MPV Absolute Neuts (auto) Neutrophils % Neutrophils % (Manual) Band Neutrophils % Lymphocytes % Lymphocytes % (Manual) Monocytes % Monocytes % (Manual) Eosinophils % Eosinophils % (Manual) Basophils % Basophils % (Manual) Myelocytes % (Man) Promyelocytes % (Man) Blast Cells % (Manual) Nucleated RBC % Metamyelocytes Hypochromia Platelet Estimate Platelet Comment Polychromasia Poikilocytosis Anisocytosis Microcytosis Macrocytosis Ovalocytes PT with INR INR PTT (Actin FS) D-Dimer 4295 H Anticoagulation Therapy Puncture Site ABG pH ABG pCO2 at Pt Temp ABG pO2 at Pt Temp ABG HCO3 ABG O2 Sat (Measured) ABG O2 Content ABG Base Excess [place] Test VBG pH POC VBG pCO2 POC VBG pO2 VBG HCO3 VBG O2 Sat ([place]) VBG Base Excess Patient On Oxygen O2 Delivery Device Oxygen Flow Rate Vent Mode Vent Rate Mechanical Rate PEEP Pressure Support Vent Sodium 136 137 Potassium 3.7 4.0 Chloride 99 99 Carbon Dioxide 29 31 Anion Gap 8 7 L BUN 11.8 16.2 Creatinine 0.7 0.6 Est GFR (CKD-EPI)AfAm 123.86 130.30 Est GFR (CKD-EPI)NonAf 106.87 112.42 POC Glucometer Random Glucose 162 H 149 H Lactic Acid Calcium 8.5 8.3 L Phosphorus 2.4 L 3.1 Magnesium 2.7 H 2.8 H Ferritin 782.0 H Total Bilirubin 0.7 0.6 Direct Bilirubin AST 49 H 40 H ALT 67 H 60 Alkaline Phosphatase 247 H 232 H LD Total Creatine Kinase Troponin I C-Reactive Protein 18.4 H Total Protein 6.9 6.4 Albumin 2.5 L 2.3 L Serum , Qual COVID-19 ([facility]) Hep A IgM Ab Confirm Hep Bs Antigen Hep B Core IgM Ab Hepatitis C Ab (EIA) 12/23/19 12/23/19 12/23/19 05:30 05:30 05:30 WBC 15.9 H RBC 3.60 Hgb 10.6 L Hct 32.2 L MCV 89.5 MCH 29.4 MCHC 32.9 RDW 13.7 Plt Count 372 MPV 7.7 Absolute Neuts (auto) 15.2 H Neutrophils % 95.6 H Neutrophils % (Manual) 97.0 H Band Neutrophils % 2.0 Lymphocytes % 1.9 L D Lymphocytes % (Manual) 0.0 L Monocytes % 2.3 L Monocytes % (Manual) 0 L Eosinophils % 0.0 D Eosinophils % (Manual) 0.0 Basophils % 0.2 Basophils % (Manual) 0.0 Myelocytes % (Man) 1 Promyelocytes % (Man) 0 Blast Cells % (Manual) 0 Nucleated RBC % 0 Metamyelocytes 0 Hypochromia 0 Platelet Estimate Normal Platelet Comment Polychromasia 1+ Poikilocytosis 0 Anisocytosis 1+ Microcytosis 0 Macrocytosis 0 Ovalocytes PT with INR INR PTT (Actin FS) D-Dimer 4383 H Anticoagulation Therapy Puncture Site ABG pH ABG pCO2 at Pt Temp ABG pO2 at Pt Temp ABG HCO3 ABG O2 Sat (Measured) ABG O2 Content ABG Base Excess [place] Test VBG pH POC VBG pCO2 POC VBG pO2 VBG HCO3 VBG O2 Sat ([place]) VBG Base Excess Patient On Oxygen O2 Delivery Device Oxygen Flow Rate Vent Mode Vent Rate Mechanical Rate PEEP Pressure Support Vent Sodium Potassium Chloride Carbon Dioxide Anion Gap BUN Creatinine Est GFR (CKD-EPI)AfAm Est GFR (CKD-EPI)NonAf POC Glucometer Random Glucose Lactic Acid 1.3 Calcium Phosphorus Magnesium Ferritin Total Bilirubin Direct Bilirubin AST ALT Alkaline Phosphatase LD Total Creatine Kinase Troponin I C-Reactive Protein Total Protein Albumin Serum , Qual COVID-19 ([facility]) Hep A IgM Ab Confirm Hep Bs Antigen Hep B Core IgM Ab Hepatitis C Ab (EIA) 12/23/19 12/24/19 12/24/19 06:05 05:30 05:30 WBC 13.9 H RBC 3.57 L Hgb 10.6 L Hct 31.8 L MCV 89.0 MCH 29.8 MCHC 33.5 RDW 13.7 Plt Count 368 MPV 7.4 L Absolute Neuts (auto) 13.0 H Neutrophils % 93.7 H Neutrophils % (Manual) 94.9 H Band Neutrophils % 0.0 Lymphocytes % 2.6 L D Lymphocytes % (Manual) 3.1 L D Monocytes % 3.5 L Monocytes % (Manual) 2 L D Eosinophils % 0.0 Eosinophils % (Manual) 0.0 Basophils % 0.2 Basophils % (Manual) 0.0 Myelocytes % (Man) 0 D Promyelocytes % (Man) 0 Blast Cells % (Manual) 0 Nucleated RBC % 0 Metamyelocytes 0 Hypochromia 1+ Platelet Estimate Adequate Platelet Comment No clumping noted Polychromasia 1+ Poikilocytosis 0 Anisocytosis 2+ Microcytosis 1+ Macrocytosis 1+ Ovalocytes 1+ PT with INR INR PTT (Actin FS) D-Dimer Anticoagulation Therapy No Result Required. Puncture Site Right radial ABG pH 7.44 ABG pCO2 at Pt Temp 45.5 H ABG pO2 at Pt Temp 56.6 L ABG HCO3 30.3 H ABG O2 Sat (Measured) 87.4 L ABG O2 Content 14.8 ABG Base Excess 5.8 H Lake Test Positive VBG pH POC VBG pCO2 POC VBG pO2 VBG HCO3 VBG O2 Sat ([place]) VBG Base Excess Patient On Oxygen Yes O2 Delivery Device Vent Oxygen Flow Rate 95% Vent Mode No Result Required. Vent Rate No Result Required. Mechanical Rate Yes PEEP Pressure Support Vent No Result Required. Sodium 138 Potassium 4.4 Chloride 99 Carbon Dioxide 30 Anion Gap 8 BUN 15.5 Creatinine 0.7 Est GFR (CKD-EPI)AfAm 123.86 Est GFR (CKD-EPI)NonAf 106.87 POC Glucometer Random Glucose 154 H Lactic Acid Calcium 8.1 L Phosphorus 2.9 Magnesium 2.4 Ferritin 636.7 H Total Bilirubin 0.6 Direct Bilirubin AST 32 ALT 51 Alkaline Phosphatase 221 H LD Total 618 H Creatine Kinase Troponin I C-Reactive Protein 11.3 H Total Protein 6.6 Albumin 2.2 L Serum , Qual COVID-19 ([facility]) Hep A IgM Ab Confirm Hep Bs Antigen Hep B Core IgM Ab Hepatitis C Ab (EIA) 12/25/19 12/25/19 12/26/19 05:25 05:25 06:36 WBC 13.1 H RBC 3.76 Hgb 11.2 Hct 33.8 MCV 89.9 MCH 29.8 MCHC 33.1 RDW 13.8 Plt Count 396 MPV 7.4 L Absolute Neuts (auto) 12.2 H Neutrophils % 93.7 H Neutrophils % (Manual) 93.0 H Band Neutrophils % 0.0 Lymphocytes % 3.4 L D Lymphocytes % (Manual) 2.0 L D Monocytes % 2.6 L Monocytes % (Manual) 3 L Eosinophils % 0.1 D Eosinophils % (Manual) 0.0 Basophils % 0.2 Basophils % (Manual) 0.0 Myelocytes % (Man) 0 Promyelocytes % (Man) 0 Blast Cells % (Manual) 0 Nucleated RBC % 0 Metamyelocytes 2 D Hypochromia 0 Platelet Estimate Normal Platelet Comment Polychromasia 1+ Poikilocytosis 0 Anisocytosis 0 Microcytosis 0 Macrocytosis 0 Ovalocytes PT with INR INR PTT (Actin FS) D-Dimer Anticoagulation Therapy Puncture Site ABG pH ABG pCO2 at Pt Temp ABG pO2 at Pt Temp ABG HCO3 ABG O2 Sat (Measured) ABG O2 Content ABG Base Excess [place] Test VBG pH POC VBG pCO2 POC VBG pO2 VBG HCO3 VBG O2 Sat ([place]) VBG Base Excess Patient On Oxygen O2 Delivery Device Oxygen Flow Rate Vent Mode Vent Rate Mechanical Rate PEEP Pressure Support Vent Sodium 139 137 Potassium 4.9 4.9 Chloride 101 99 Carbon Dioxide 29 30 Anion Gap 9 8 BUN 14.1 16.0 Creatinine 0.6 0.6 Est GFR (CKD-EPI)AfAm 130.30 130.30 Est GFR (CKD-EPI)NonAf 112.42 112.42 POC Glucometer Random Glucose 129 H 133 H Lactic Acid Calcium 8.4 L 8.5 Phosphorus 3.2 3.6 Magnesium 2.5 H 2.5 H Ferritin 609.7 H 647.1 H Total Bilirubin 0.7 0.6 Direct Bilirubin AST 35 31 ALT 52 57 Alkaline Phosphatase 230 H 239 H LD Total 614 H 564 H Creatine Kinase Troponin I C-Reactive Protein 10.7 H 10.3 H Total Protein 6.7 6.9 Albumin 2.3 L 2.4 L Serum , Qual COVID-19 ([facility]) Hep A IgM Ab Confirm Hep Bs Antigen Hep B Core IgM Ab Hepatitis C Ab (EIA) 12/26/19 12/27/19 12/27/19 06:36 05:30 06:40 WBC 14.1 H RBC 3.84 Hgb 11.3 Hct 34.3 MCV 89.5 MCH 29.4 MCHC 32.9 RDW 13.7 Plt Count 407 MPV 7.4 L Absolute Neuts (auto) 13.1 H Neutrophils % 93.1 H Neutrophils % (Manual) 86.9 H Band Neutrophils % 1.0 Lymphocytes % 3.8 L Lymphocytes % (Manual) 8.1 D Monocytes % 2.8 L Monocytes % (Manual) 2 L Eosinophils % 0.0 D Eosinophils % (Manual) 0.0 Basophils % 0.3 Basophils % (Manual) 0.0 Myelocytes % (Man) 1 D Promyelocytes % (Man) 0 Blast Cells % (Manual) 0 Nucleated RBC % 0 Metamyelocytes 1 D Hypochromia 0 Platelet Estimate Normal Platelet Comment Polychromasia 0 Poikilocytosis 0 Anisocytosis 0 Microcytosis 0 Macrocytosis 0 Ovalocytes PT with INR INR PTT (Actin FS) D-Dimer Anticoagulation Therapy No Result Required. Puncture Site Left radial ABG pH 7.38 ABG pCO2 at Pt Temp 51.9 H ABG pO2 at Pt Temp 74.5 L ABG HCO3 30.2 H ABG O2 Sat (Measured) 93.1 L ABG O2 Content 14.9 ABG Base Excess 4.6 H [place] Test Positive VBG pH POC VBG pCO2 POC VBG pO2 VBG HCO3 VBG O2 Sat ([place]) VBG Base Excess Patient On Oxygen Yes O2 Delivery Device Vlo/cpap Oxygen Flow Rate 100% Vent Mode Capa Vent Rate No Result Required. Mechanical Rate Cpap PEEP Pressure Support Vent Cpap 10 Sodium 134 L Potassium 4.7 Chloride 99 Carbon Dioxide 31 Anion Gap 4 L BUN 14.6 Creatinine 0.6 Est GFR (CKD-EPI)AfAm 130.30 Est GFR (CKD-EPI)NonAf 112.42 POC Glucometer Random Glucose 106 Lactic Acid Calcium 8.6 Phosphorus 3.7 Magnesium 2.1 Ferritin Total Bilirubin 0.4 Direct Bilirubin AST 27 ALT 61 Alkaline Phosphatase 221 H LD Total 483 H Creatine Kinase 20 L Troponin I C-Reactive Protein 5.9 H Total Protein 6.8 Albumin 2.3 L Serum , Qual COVID-19 ([facility]) Hep A IgM Ab Confirm Hep Bs Antigen Hep B Core IgM Ab Hepatitis C Ab (EIA) 12/27/19 12/27/19 12/28/19 06:40 06:40 16:40 WBC 13.5 H 16.0 H RBC 3.85 4.22 Hgb 11.7 12.7 Hct 34.4 37.9 MCV 89.2 89.8 MCH 30.3 30.0 MCHC 33.9 33.4 RDW 13.7 13.7 Plt Count 439 H 439 H MPV 7.5 7.4 L Absolute Neuts (auto) 12.1 H Neutrophils % 89.9 H Neutrophils % (Manual) 88.3 H Band Neutrophils % 0.0 Lymphocytes % 4.5 L Lymphocytes % (Manual) 0.0 L Monocytes % 4.7 Monocytes % (Manual) 6 D Eosinophils % 0.6 D Eosinophils % (Manual) 0.0 Basophils % 0.3 Basophils % (Manual) 0.0 Myelocytes % (Man) 2 D Promyelocytes % (Man) 0 Blast Cells % (Manual) 0 Nucleated RBC % 0 Metamyelocytes 0 D Hypochromia 0 Platelet Estimate Normal Platelet Comment Polychromasia 1+ Poikilocytosis 1+ Anisocytosis 1+ Microcytosis 1+ Macrocytosis 0 Ovalocytes PT with INR INR PTT (Actin FS) D-Dimer 7780 H Anticoagulation Therapy Puncture Site ABG pH ABG pCO2 at Pt Temp ABG pO2 at Pt Temp ABG HCO3 ABG O2 Sat (Measured) ABG O2 Content ABG Base Excess [place] Test VBG pH POC VBG pCO2 POC VBG pO2 VBG HCO3 VBG O2 Sat ([place]) VBG Base Excess Patient On Oxygen O2 Delivery Device Oxygen Flow Rate Vent Mode Vent Rate Mechanical Rate PEEP Pressure Support Vent Sodium Potassium Chloride Carbon Dioxide Anion Gap BUN Creatinine Est GFR (CKD-EPI)AfAm Est GFR (CKD-EPI)NonAf POC Glucometer Random Glucose Lactic Acid Calcium Phosphorus Magnesium Ferritin Total Bilirubin Direct Bilirubin AST ALT Alkaline Phosphatase LD Total Creatine Kinase Troponin I C-Reactive Protein Total Protein Albumin Serum , Qual COVID-19 ([facility]) Hep A IgM Ab Confirm Hep Bs Antigen Hep B Core IgM Ab Hepatitis C Ab (EIA) 12/28/19 12/29/19 12/29/19 16:40 07:10 07:10 WBC 13.4 H RBC 3.96 Hgb 12.0 Hct 35.5 MCV 89.7 MCH 30.2 MCHC 33.7 RDW 13.5 Plt Count 399 MPV 7.5 Absolute Neuts (auto) Neutrophils % Neutrophils % (Manual) Band Neutrophils % Lymphocytes % Lymphocytes % (Manual) Monocytes % Monocytes % (Manual) Eosinophils % Eosinophils % (Manual) Basophils % Basophils % (Manual) Myelocytes % (Man) Promyelocytes % (Man) Blast Cells % (Manual) Nucleated RBC % Metamyelocytes Hypochromia Platelet Estimate Platelet Comment Polychromasia Poikilocytosis Anisocytosis Microcytosis Macrocytosis Ovalocytes PT with INR INR PTT (Actin FS) D-Dimer 6605 H Anticoagulation Therapy Puncture Site ABG pH ABG pCO2 at Pt Temp ABG pO2 at Pt Temp ABG HCO3 ABG O2 Sat (Measured) ABG O2 Content ABG Base Excess [place] Test VBG pH POC VBG pCO2 POC VBG pO2 VBG HCO3 VBG O2 Sat ([place]) VBG Base Excess Patient On Oxygen O2 Delivery Device Oxygen Flow Rate Vent Mode Vent Rate Mechanical Rate PEEP Pressure Support Vent Sodium 134 L Potassium 4.5 Chloride 99 Carbon Dioxide 29 Anion Gap 6 L BUN 14.2 Creatinine 0.7 Est GFR (CKD-EPI)AfAm 123.86 Est GFR (CKD-EPI)NonAf 106.87 POC Glucometer Random Glucose 128 H Lactic Acid Calcium 8.8 Phosphorus 3.1 Magnesium 2.1 Ferritin Total Bilirubin Direct Bilirubin AST ALT Alkaline Phosphatase LD Total Creatine Kinase Troponin I C-Reactive Protein Total Protein Albumin Serum , Qual COVID-19 ([facility]) Hep A IgM Ab Confirm Hep Bs Antigen Hep B Core IgM Ab Hepatitis C Ab (EIA) 12/29/19 12/29/19 12/30/19 07:10 17:56 06:35 WBC RBC Hgb Hct MCV MCH MCHC RDW Plt Count MPV Absolute Neuts (auto) Neutrophils % Neutrophils % (Manual) Band Neutrophils % Lymphocytes % Lymphocytes % (Manual) Monocytes % Monocytes % (Manual) Eosinophils % Eosinophils % (Manual) Basophils % Basophils % (Manual) Myelocytes % (Man) Promyelocytes % (Man) Blast Cells % (Manual) Nucleated RBC % Metamyelocytes Hypochromia Platelet Estimate Platelet Comment Polychromasia Poikilocytosis Anisocytosis Microcytosis Macrocytosis Ovalocytes PT with INR INR PTT (Actin FS) D-Dimer Anticoagulation Therapy Puncture Site ABG pH ABG pCO2 at Pt Temp ABG pO2 at Pt Temp ABG HCO3 ABG O2 Sat (Measured) ABG O2 Content ABG Base Excess [place] Test VBG pH POC VBG pCO2 POC VBG pO2 VBG HCO3 VBG O2 Sat ([place]) VBG Base Excess Patient On Oxygen O2 Delivery Device Oxygen Flow Rate Vent Mode Vent Rate Mechanical Rate PEEP Pressure Support Vent Sodium 136 134 L Potassium 4.8 4.3 Chloride 96 L 98 Carbon Dioxide 29 28 Anion Gap 10 8 BUN 16.8 13.6 Creatinine 0.6 0.7 Est GFR (CKD-EPI)AfAm 130.30 123.86 Est GFR (CKD-EPI)NonAf 112.42 106.87 POC Glucometer 159 Random Glucose 106 129 H Lactic Acid Calcium 8.8 8.6 Phosphorus 3.2 3.2 Magnesium 2.3 2.0 Ferritin 751.0 H 771.9 H Total Bilirubin 0.4 Direct Bilirubin AST 37 ALT 71 H Alkaline Phosphatase 175 H LD Total 498 H 515 H Creatine Kinase 32 Troponin I C-Reactive Protein 2.4 H Total Protein 6.6 Albumin 2.4 L Serum , Qual COVID-19 (HORACE) Hep A IgM Ab Confirm Hep Bs Antigen Hep B Core IgM Ab Hepatitis C Ab (EIA) 12/30/19 12/30/19 12/31/19 06:35 06:35 07:21 WBC 14.9 H RBC 3.98 Hgb 11.9 Hct 35.3 MCV 88.9 MCH 29.8 MCHC 33.5 RDW 13.9 Plt Count 359 MPV 8.1 Absolute Neuts (auto) 13.4 H Neutrophils % 90.2 H Neutrophils % (Manual) 84.1 H Band Neutrophils % 1.0 Lymphocytes % 4.8 L Lymphocytes % (Manual) 6.9 L D Monocytes % 4.0 Monocytes % (Manual) 3 L Eosinophils % 0.2 Eosinophils % (Manual) 1.0 D Basophils % 0.8 Basophils % (Manual) 0.0 Myelocytes % (Man) 2 Promyelocytes % (Man) 0 Blast Cells % (Manual) 0 Nucleated RBC % 0 Metamyelocytes 0 Hypochromia 0 Platelet Estimate Normal Platelet Comment Polychromasia 0 Poikilocytosis 0 Anisocytosis 0 Microcytosis 0 Macrocytosis 0 Ovalocytes PT with INR INR PTT (Actin FS) D-Dimer 5772 H Anticoagulation Therapy Puncture Site ABG pH ABG pCO2 at Pt Temp ABG pO2 at Pt Temp ABG HCO3 ABG O2 Sat (Measured) ABG O2 Content ABG Base Excess Lake Test VBG pH POC VBG pCO2 POC VBG pO2 VBG HCO3 VBG O2 Sat ([place]ñito) VBG Base Excess Patient On Oxygen O2 Delivery Device Oxygen Flow Rate Vent Mode Vent Rate Mechanical Rate PEEP Pressure Support Vent Sodium 137 Potassium 4.1 Chloride 98 Carbon Dioxide 32 Anion Gap 8 BUN 10.0 Creatinine 0.6 Est GFR (CKD-EPI)AfAm 130.30 Est GFR (CKD-EPI)NonAf 112.42 POC Glucometer Random Glucose 137 H Lactic Acid Calcium 8.6 Phosphorus 3.3 Magnesium 2.2 Ferritin 687.6 H Total Bilirubin 0.4 Direct Bilirubin AST 30 ALT 71 H Alkaline Phosphatase 171 H LD Total 472 H Creatine Kinase Troponin I C-Reactive Protein 2.3 H Total Protein 6.6 Albumin 2.6 L Serum , Qual COVID-19 ([facility]ACE) Hep A IgM Ab Confirm Hep Bs Antigen Hep B Core IgM Ab Hepatitis C Ab (EIA) 12/31/19 12/31/19 01/01/20 07:21 07:21 10:40 WBC 17.4 H 22.2 H RBC 4.00 4.42 Hgb 11.9 13.1 Hct 35.7 40.4 MCV 89.4 91.3 MCH 29.8 29.5 MCHC 33.3 32.3 RDW 13.9 14.4 Plt Count 341 389 MPV 7.8 8.3 Absolute Neuts (auto) 15.7 H 19.2 H Neutrophils % 90.7 H 86.2 H Neutrophils % (Manual) 78.6 83.8 H Band Neutrophils % 2.9 0.0 Lymphocytes % 4.6 L 7.7 L D Lymphocytes % (Manual) 4.8 L D 9.1 D Monocytes % 4.2 5.2 Monocytes % (Manual) 4 6 Eosinophils % 0.2 0.6 D Eosinophils % (Manual) 7.8 H D 0.0 D Basophils % 0.3 0.3 Basophils % (Manual) 0.0 0.0 Myelocytes % (Man) 0 D 0 Promyelocytes % (Man) 1 D 0 D Blast Cells % (Manual) 0 0 Nucleated RBC % 0 0 Metamyelocytes 1 D 1 Hypochromia 0 0 Platelet Estimate Normal Normal Platelet Comment Polychromasia 1+ 1+ Poikilocytosis 0 0 Anisocytosis 1+ 0 Microcytosis 1+ 0 Macrocytosis 0 0 Ovalocytes PT with INR INR PTT (Actin FS) D-Dimer 4269 H Anticoagulation Therapy Puncture Site ABG pH ABG pCO2 at Pt Temp ABG pO2 at Pt Temp ABG HCO3 ABG O2 Sat (Measured) ABG O2 Content ABG Base Excess Lake Test VBG pH POC VBG pCO2 POC VBG pO2 VBG HCO3 VBG O2 Sat ([place]) VBG Base Excess Patient On Oxygen O2 Delivery Device Oxygen Flow Rate Vent Mode Vent Rate Mechanical Rate PEEP Pressure Support Vent Sodium Potassium Chloride Carbon Dioxide Anion Gap BUN Creatinine Est GFR (CKD-EPI)AfAm Est GFR (CKD-EPI)NonAf POC Glucometer Random Glucose Lactic Acid Calcium Phosphorus Magnesium Ferritin Total Bilirubin Direct Bilirubin AST ALT Alkaline Phosphatase LD Total Creatine Kinase Troponin I C-Reactive Protein Total Protein Albumin Serum , Qual COVID-19 ([facility]ACE) Hep A IgM Ab Confirm Hep Bs Antigen Hep B Core IgM Ab Hepatitis C Ab (EIA) 01/01/20 01/01/20 01/01/20 10:45 10:45 17:10 WBC RBC Hgb Hct MCV MCH MCHC RDW Plt Count MPV Absolute Neuts (auto) Neutrophils % Neutrophils % (Manual) Band Neutrophils % Lymphocytes % Lymphocytes % (Manual) Monocytes % Monocytes % (Manual) Eosinophils % Eosinophils % (Manual) Basophils % Basophils % (Manual) Myelocytes % (Man) Promyelocytes % (Man) Blast Cells % (Manual) Nucleated RBC % Metamyelocytes Hypochromia Platelet Estimate Platelet Comment Polychromasia Poikilocytosis Anisocytosis Microcytosis Macrocytosis Ovalocytes PT with INR INR PTT (Actin FS) D-Dimer 3520 H Anticoagulation Therapy No Result Required. Puncture Site No Result Required. ABG pH 7.41 ABG pCO2 at Pt Temp 48.9 H ABG pO2 at Pt Temp 60.1 L ABG HCO3 30.3 H ABG O2 Sat (Measured) 88.7 L ABG O2 Content 18.6 ABG Base Excess 5.0 H Lake Test Positive VBG pH POC VBG pCO2 POC VBG pO2 VBG HCO3 VBG O2 Sat ([place]) VBG Base Excess Patient On Oxygen Yes O2 Delivery Device No Result Required. Oxygen Flow Rate 100 Vent Mode Avaps Vent Rate 16 Mechanical Rate No Result Required. PEEP 10.0 Pressure Support Vent 475 Sodium 136 Potassium 3.9 Chloride 97 L Carbon Dioxide 29 Anion Gap 10 BUN 11.3 Creatinine 0.7 Est GFR (CKD-EPI)AfAm 123.86 Est GFR (CKD-EPI)NonAf 106.87 POC Glucometer Random Glucose 83 Lactic Acid Calcium 9.3 Phosphorus 3.4 Magnesium 2.0 Ferritin 723.1 H Total Bilirubin 0.4 Direct Bilirubin AST 37 ALT 93 H Alkaline Phosphatase 199 H LD Total 612 H Creatine Kinase Troponin I C-Reactive Protein 2.2 H Total Protein 7.4 Albumin 2.9 L Serum , Qual COVID-19 ([facility]ACE) Hep A IgM Ab Confirm Hep Bs Antigen Hep B Core IgM Ab Hepatitis C Ab (EIA) 01/02/20 01/02/20 01/02/20 06:45 06:45 06:45 WBC 18.9 H RBC 4.26 Hgb 12.7 Hct 38.5 MCV 90.5 MCH 29.9 MCHC 33.0 RDW 14.2 Plt Count 378 MPV 8.3 Absolute Neuts (auto) Neutrophils % Neutrophils % (Manual) Band Neutrophils % Lymphocytes % Lymphocytes % (Manual) Monocytes % Monocytes % (Manual) Eosinophils % Eosinophils % (Manual) Basophils % Basophils % (Manual) Myelocytes % (Man) Promyelocytes % (Man) Blast Cells % (Manual) Nucleated RBC % Metamyelocytes Hypochromia Platelet Estimate Platelet Comment Polychromasia Poikilocytosis Anisocytosis Microcytosis Macrocytosis Ovalocytes PT with INR INR PTT (Actin FS) D-Dimer 2420 H Anticoagulation Therapy Puncture Site ABG pH ABG pCO2 at Pt Temp ABG pO2 at Pt Temp ABG HCO3 ABG O2 Sat (Measured) ABG O2 Content ABG Base Excess Lake Test VBG pH POC VBG pCO2 POC VBG pO2 VBG HCO3 VBG O2 Sat ([place]) VBG Base Excess Patient On Oxygen O2 Delivery Device Oxygen Flow Rate Vent Mode Vent Rate Mechanical Rate PEEP Pressure Support Vent Sodium 138 Potassium 4.0 Chloride 97 L Carbon Dioxide 31 Anion Gap 10 BUN 17.2 Creatinine 0.5 L Est GFR (CKD-EPI)AfAm 138.36 Est GFR (CKD-EPI)NonAf 119.38 POC Glucometer Random Glucose 106 Lactic Acid Calcium 9.1 Phosphorus 4.9 Magnesium 2.0 Ferritin 700.3 H Total Bilirubin 0.5 Direct Bilirubin AST 36 ALT 91 H Alkaline Phosphatase 177 H LD Total 493 H Creatine Kinase Troponin I C-Reactive Protein 2.1 H Total Protein 7.0 Albumin 2.9 L Serum , Qual COVID-19 ([facility]ACE) Hep A IgM Ab Confirm Hep Bs Antigen Hep B Core IgM Ab Hepatitis C Ab (EIA) 01/02/20 14:10 WBC RBC Hgb Hct MCV MCH MCHC RDW Plt Count MPV Absolute Neuts (auto) Neutrophils % Neutrophils % (Manual) Band Neutrophils % Lymphocytes % Lymphocytes % (Manual) Monocytes % Monocytes % (Manual) Eosinophils % Eosinophils % (Manual) Basophils % Basophils % (Manual) Myelocytes % (Man) Promyelocytes % (Man) Blast Cells % (Manual) Nucleated RBC % Metamyelocytes Hypochromia Platelet Estimate Platelet Comment Polychromasia Poikilocytosis Anisocytosis Microcytosis Macrocytosis Ovalocytes PT with INR INR PTT (Actin FS) D-Dimer Anticoagulation Therapy No Result Required. Puncture Site Right radial ABG pH 7.45 ABG pCO2 at Pt Temp 44.8 ABG pO2 at Pt Temp 65.8 L ABG HCO3 30.6 H ABG O2 Sat (Measured) 91.4 L ABG O2 Content 17.4 ABG Base Excess 6.2 H Lake Test Positive VBG pH POC VBG pCO2 POC VBG pO2 VBG HCO3 VBG O2 Sat ([place]) VBG Base Excess Patient On Oxygen Yes O2 Delivery Device No Result Required. Oxygen Flow Rate 100 Vent Mode No Result Required. Vent Rate 16 Mechanical Rate No Result Required. PEEP 10.0 Pressure Support Vent 425 Sodium Potassium Chloride Carbon Dioxide Anion Gap BUN Creatinine Est GFR (CKD-EPI)AfAm Est GFR (CKD-EPI)NonAf POC Glucometer Random Glucose Lactic Acid Calcium Phosphorus Magnesium Ferritin Total Bilirubin Direct Bilirubin AST ALT Alkaline Phosphatase LD Total Creatine Kinase Troponin I C-Reactive Protein Total Protein Albumin Serum , Qual COVID-19 ([facility]) Hep A IgM Ab Confirm Hep Bs Antigen Hep B Core IgM Ab Hepatitis C Ab (EIA) Imaging - Results Chest X-ray: Image Reviewed (B infiltrates) EKG: Image Reviewed (s tachycardia , LVH) Problem List - Problems (1) Acute respiratory failure with hypoxia Code(s): J96.01 - ACUTE RESPIRATORY FAILURE WITH HYPOXIA (2) COVID-19 Code(s): U07.1 - COVID POSITIVE (3) Suspected COVID-19 virus infection Code(s): R68.89 - OTHER GENERAL SYMPTOMS AND SIGNS (4) Abdominal pain Code(s): R10.9 - UNSPECIFIED ABDOMINAL PAIN Qualifiers: Abdominal location: lower abdomen (5) Arm pain, left Code(s): M79.602 - PAIN IN LEFT ARM (6) Numbness Code(s): R20.0 - ANESTHESIA OF SKIN (7) Postoperative pain Code(s): G89.18 - OTHER ACUTE POSTPROCEDURAL PAIN (8) Sternal pain Code(s): R07.89 - OTHER CHEST PAIN (9) TIA (transient ischemic attack) Code(s): G45.9 - TRANSIENT CEREBRAL ISCHEMIC ATTACK, UNSPECIFIED Assessment/Plan Acute Hypoxic Respiratory Failure due to ARDS due to COVID19 Pneumonitis Septic Shock Transaminitis Hodgkins lymphoma s/p radiation and stem cell transplant in 2011 Sinus Tachycardia Plan; Sinus tachycardia most likely due to hypoxia Cont AC Cont steroids and pulmonaary rx ECHO when stable
[2020-01-02] MEDS: ALPRAZolam 1 MG TABLET PO SCH (22:47)
[2020-01-03] MEDS: ENOXAPARIN NA (PORCINE) 100 MG/1 ML DISP.SYRIN SQ SCH ×3 (00:35→23:27)
[2020-01-03 07:16] LABS: HEMATOCRIT 35.5 % (32.4-45.2); HEMOGLOBIN 11.8 GM/dL (10.7-15.3); MCH 30.1 pg (25.7-33.7); MCHC 33.2 g/dl (32.0-36.0); MEAN CELL VOLUME 90.5 fl (80-96); MEAN PLT VOLUME 8.2 fl (7.5-11.1); PLATELET COUNT 334 K/MM3 (134-434); RBC 3.92 M/mm3 (3.60-5.2); RDW 14.6 % (11.6-15.6); WHITE BLOOD COUNT 18.3 K/mm3 (4.0-10.0)
[2020-01-03 07:41] LABS: ALBUMIN 2.6 g/dl (3.4-5.0); BILIRUBIN,TOTAL 0.5 mg/dL (0.2-1); BLOOD UREA NITROGEN 17.4 mg/dL (7-18); CALCIUM 8.5 mg/dL (8.5-10.1); CREATININE 0.6 mg/dL (0.55-1.3); MAGNESIUM 2.2 mg/dL (1.8-2.4); PHOSPHOROUS 4.1 mg/dL (2.5-4.9); POTASSIUM 4.5 mmol/L (3.5-5.1); TOT PROT 6.3 g/dl (6.4-8.2)
[2020-01-03] MEDS ORDERED: PT OWN MED DRAWER 7, Y5N ONE ×3 (09:53→18:31)
[2020-01-03] MEDS: PANTOPRAZOLE 40 MG TABLET PO SCH (09:56)
[2020-01-03] MEDS: LACTOBACILLUS ACIDOPHILUS 1 TABLET PO SCH (09:56)
[2020-01-03] MEDS: ASCORBIC ACID 500 MG TABLET (FP) PO SCH (09:56)
[2020-01-03] MEDS: CHOLECALCIFEROL (VIT D3) 1,000 UNIT (25 MCG) TABLET PO SCH (09:56)
[2020-01-03] MEDS: methylPREDNISolone NA SUCC 40 MG/1 ML VIAL IVPUSH SCH ×2 (09:59→23:28)
[2020-01-03] MEDS: ALPRAZolam 1 MG TABLET PO SCH ×2 (10:00→23:29)
[2020-01-03] MEDS: ZINC SULFATE 220 MG CAPSULE (FP) PO SCH (10:05)
--- NOTE | 2020-01-03 10:38 | PN ---
Progress Note, Physician Chief Complaint: Pt A&OX3; on BIPAP. Pt denies chest pain or dyspnea presently; she says that she feels better since restarting Xanax (her sister, on speakerphone, says "the whole family suffers from anxiety"). History of Present Illness: 44 year old female with PMH Hodgkins' lymphoma X3 s/p radiation and stem cell transplant in 2012, not on active treatment, in remission x 8 yrs, appendectomy, cholecystectomy, anxiety, obesity, presenting with SOB and myalgias. States that she has felt ill for the past 10 days with myalgias and malaise, but over the past 5 days, she has had progressively worsening SOB and SONG, associated with cough, loss of appetite, and fevers/chills. 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 Sister is a known COVID positive. Pt COVID-19 detected 12/19/2019. - Current Medication List Current Medications: Active Medications Acetaminophen (Tylenol -) 650 mg PO Q6H PRN PRN Reason: PAIN Albuterol Sulfate (Ventolin Hfa Inhaler -) 2 puff IH Q4H PRN PRN Reason: SHORT OF BREATH/WHEEZING Alprazolam (Xanax -) 0.25 mg PO Q6H PRN PRN Reason: ANXIETY Last Admin: 01/01/20 15:23 Dose: 0.25 mg Documented by: Alprazolam (Xanax) 0.25 mg PO BID [facility] Last Admin: 01/03/20 10:00 Dose: 0.25 mg Documented by: Ascorbic Acid (Vitamin C -) 500 mg PO DAILY [facility] Last Admin: 01/03/20 09:56 Dose: 500 mg Documented by: Cholecalciferol (Vitamin D3 -) 1,000 unit PO DAILY [facility] Last Admin: 01/03/20 09:56 Dose: 1,000 unit Documented by: Enoxaparin Sodium (Lovenox -) 90 mg SQ BID [facility] Last Admin: 01/03/20 00:35 Dose: 90 mg Documented by: Lactobacillus Acidophilus (Bacid -) 1 tab PO DAILY [facility] Last Admin: 01/03/20 09:56 Dose: 1 tab Documented by: Methylprednisolone Sodium Succinate (Solu-Medrol -) 50 mg IVPUSH BID [facility] Last Admin: 01/03/20 09:59 Dose: 50 mg Documented by: Metoprolol Tartrate (Lopressor Injection -) 5 mg IVPUSH Q4H PRN PRN Reason: TACHYCARDIA Last Admin: 01/02/20 12:59 Dose: 5 mg Documented by: Pantoprazole Sodium (Protonix -) 40 mg PO DAILY [facility] Last Admin: 01/03/20 09:56 Dose: 40 mg Documented by: Zinc Sulfate (Orazinc -) 220 mg PO DAILY [facility] Last Admin: 01/03/20 10:05 Dose: 220 mg Documented by: - Objective Vital Signs: Vital Signs Temperature 97.1 F L 01/03/20 06:00 Pulse Rate 119 H 01/03/20 06:00 Respiratory Rate 19 01/03/20 06:00 Blood Pressure 119/84 01/03/20 06:00 O2 Sat by Pulse Oximetry (%) 92 L 01/02/20 21:03 Constitutional: Yes: Obese Eyes: Yes: Conjunctiva Clear HENT: Yes: WNL Neck: Yes: WNL Cardiovascular: Yes: S1, S2, S4 Respiratory: Yes: On BiPap, Tachypnea. No: Accessory Muscle Use Gastrointestinal: Yes: Abdomen, Obese ...Rectal Exam: Yes: Deferred Genitourinary: No: Anuria Breast(s): Yes: WNL Musculoskeletal: Yes: Joint Stiffness Extremities: Yes: WNL Edema: No Peripheral Pulses WNL: Yes Integumentary: Yes: Tattoos Neurological: Yes: Alert, Oriented Psychiatric: Yes: Alert, Oriented, Other (anxiety) Labs: CBC, BMP 01/03/20 06:00 01/03/20 06:00 INR, PTT INR 1.25 (0.83-1.09) H 12/19/19 13:13 Abnormal Lab Results 01/02/20 01/03/20 01/03/20 14:10 06:00 06:00 WBC 18.3 H D-Dimer ABG pO2 at Pt Temp 65.8 L ABG HCO3 30.6 H ABG O2 Sat (Measured) 91.4 L ABG Base Excess 6.2 H Random Glucose 122 H Ferritin 662.4 H AST 43 H ALT 94 H Alkaline Phosphatase 149 H LD Total 537 H C-Reactive Protein 2.1 H Total Protein 6.3 L Albumin 2.6 L 01/03/20 06:00 WBC D-Dimer 2133 H ABG pO2 at Pt Temp ABG HCO3 ABG O2 Sat (Measured) ABG Base Excess Random Glucose Ferritin AST ALT Alkaline Phosphatase LD Total C-Reactive Protein Total Protein Albumin - ....Imaging Chest X-ray: Image Reviewed (bilateral infiltrates) EKG: Image Reviewed Problem List - Problems (1) Obesity Code(s): E66.9 - OBESITY, UNSPECIFIED (2) HTN (hypertension) Code(s): I10 - ESSENTIAL (PRIMARY) HYPERTENSION (3) NHL (non-Hodgkin's lymphoma) Assessment/Plan: in remission. F/u with PMD, oncologist. 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 F/u inflammatory markers. Code(s): U07.1 - COVID POSITIVE (7) Sinus tachycardia Assessment/Plan: multiple etiologies, including anxiety, respiratory distress, CHF, ?sepsis. HR improving with anxiolytic and metoprolol. Of note: pt had Holter monitor 2011 for "palpitations" that showed high resting HR: Underlying rhythm sinus; average HR 98 bpm; maximum 150 bpm sinus tach; no arrhythmias. Code(s): R00.0 - TACHYCARDIA, UNSPECIFIED
--- NOTE | 2020-01-03 11:24 | PN ---
Progress Note (short form) - Note Progress Note: PULMONARY ON AVAPS/100%/RATE 16/ VT 475ML/EPAP 10/SPO2 92% VSS/AFEBRILE/ Gen: Stable Heart: tachycardic, regular Lung: scattered rales Abd: soft, nontender Ext: no edema Active Medications/labs/images/micro/notes/ABG reviewed INFLAMMATORY MARKERS NOTED ASSESSMENT AND PLAN Acute Hypoxic Respiratory Failure COVID Pneumonia Tachycardia resolved ARDS resolved Septic Shock resolved Elevated LFTs h/o Hodgkins Lymphoma h/o DVTs - cardiology consult reviewed - completed antibiotics - completed plaquenil course - empiric steroids - empiric anticoagulation - titrate FiO2 to keep SpO2 >90% - pulse oximetry monitoring Gene RIOS MD
--- NOTE | 2020-01-03 15:44 | PN ---
Physical Exam: SUBJECTIVE: Patient seen and examined at bedside. There were no acute events overnight. Anxiety and tachycardia better controlled. She reports feeling better today. OBJECTIVE: Vital Signs Temp Pulse Resp BP Pulse Ox 98.8 F 129 H 20 136/71 95 01/03/20 18:00 01/03/20 18:00 01/03/20 18:00 01/03/20 18:00 01/03/20 10:10 GENERAL: The patient is awake, alert, and fully oriented, in no acute distress. ENT:CPAP on face. LUNGS: Poor air entry b/l HEART: Tachycardic, regular rhythm ABDOMEN: Soft, nontender, nondistended, normoactive bowel sounds. EXTREMITIES: 2+ pulses, warm, well-perfused, no edema. NEUROLOGICAL: Cranial nerves II through XII grossly intact. PSYCH: Normal mood, normal affect. SKIN: Warm, dry, normal turgor, no rashes or lesions noted Laboratory Results - last 24 hr 01/03/20 01/03/20 01/03/20 06:00 06:00 06:00 WBC 18.3 H RBC 3.92 Hgb 11.8 Hct 35.5 MCV 90.5 MCH 30.1 MCHC 33.2 RDW 14.6 Plt Count 334 MPV 8.2 D-Dimer 2133 H Sodium 137 Potassium 4.5 Chloride 99 Carbon Dioxide 29 Anion Gap 9 BUN 17.4 Creatinine 0.6 Est GFR (CKD-EPI)AfAm 130.30 Est GFR (CKD-EPI)NonAf 112.42 Random Glucose 122 H Calcium 8.5 Phosphorus 4.1 Magnesium 2.2 Ferritin 662.4 H Total Bilirubin 0.5 AST 43 H ALT 94 H Alkaline Phosphatase 149 H LD Total 537 H C-Reactive Protein 2.1 H Total Protein 6.3 L Albumin 2.6 L Active Medications Generic Name Dose Route Start Last Admin Trade Name Freq PRN Reason Stop Dose Admin Acetaminophen 650 mg 12/28/19 15:59 Tylenol - PO Q6H PRN PAIN Albuterol Sulfate 2 puff 12/28/19 15:59 Ventolin Hfa Inhaler - IH Q4H PRN SHORT OF BREATH/WHEEZING Alprazolam 0.25 mg 12/28/19 15:59 01/01/20 15:23 Xanax - PO 0.25 mg Q6H PRN Administration ANXIETY Alprazolam 0.25 mg 01/02/20 22:00 01/03/20 10:00 Xanax PO 0.25 mg BID DARIEL Administration Ascorbic Acid 500 mg 12/30/19 10:00 01/03/20 09:56 Vitamin C - PO 500 mg DAILY DARIEL Administration Cholecalciferol 1,000 unit 12/30/19 10:00 01/03/20 09:56 Vitamin D3 - PO 1,000 unit DAILY DARIEL Administration Enoxaparin Sodium 90 mg 12/28/19 22:00 01/03/20 00:35 Lovenox - SQ 90 mg BID DARIEL Administration Lactobacillus Acidophilus 1 tab 12/29/19 10:00 01/03/20 09:56 Bacid - PO 1 tab DAILY DARIEL Administration Methylprednisolone Sodium Succinate 50 mg 12/28/19 22:00 01/03/20 09:59 Solu-Medrol - IVPUSH 50 mg BID DARIEL Administration Metoprolol Tartrate 5 mg 12/29/19 17:46 01/02/20 12:59 Lopressor Injection - IVPUSH 5 mg Q4H PRN Administration TACHYCARDIA Pantoprazole Sodium 40 mg 12/29/19 10:00 01/03/20 09:56 Protonix - PO 40 mg DAILY DARIEL Administration Zinc Sulfate 220 mg 12/29/19 10:00 01/03/20 10:05 Orazinc - PO 220 mg DAILY DARIEL Administration ASSESSMENT/PLAN: 44 y/o female PMH Hodgkins' lymphoma s/p radiation and stem cell transplant (2011), appendectomy, cholecystectomy, anxiety, who presents with acute hypoxic respiratory failure 2/2 to CoVid-19 infection. # Acute hypoxic respiratory failure 2/2 Covid-19 PNA - CoVid-19 + - QTC 472 - Saturating at 92% on CPAP AVAPS mode of NIPPV (350, 14-36, 100% FiO2) - Solumedrol 50 BID - Lovenox 90 BID - Albuterol inhaler - Educated pt on utility of laying lateral decubitus and prone if possible - Cont. to monitor inflammatory markers. Today d-dimer is down, ferritin is down , LDH is down, and CRP is down - Vitamin C, vitamin D, and zinc - Isolation precautions: Contact, droplet, airborne - Strict hand washing - Consult ID # Sinus tachycardia - Possibly 2/2 volume depletion - Possibly 2/2 anxiety - 3 acute episodes that precipitate oxygen desaturation - 250 cc bolus once, encourage PO intake with caution to minimize time off of CPAP - Lospressor 5 mg for repeat episodes - Consult cardiology # Anxiety - Alprazolam 0.25 mg BID - Alprazolam 0.25 mg q6h prn - Episodes of anxiety exacerbate hypoxia # FEN - PO, cautious with only brief period of having mask off. - Cont. to monitor - Liquid diet # DVT ppx - Lovenox 90 BID # Disposition - Saturating at 92% on CPAP - Full code Blaine Guerrero MD Visit type - Emergency Visit Emergency Visit: No - New Patient This patient is new to me today: No - Critical Care Critical Care patient: No ATTENDING PHYSICIAN STATEMENT I saw and evaluated the patient. I reviewed the resident's note and discussed the case with the resident. I agree with the resident's findings and plan as documented. SUBJECTIVE: OBJECTIVE: ASSESSMENT AND PLAN:
--- NOTE | 2020-01-03 18:15 | PN ---
Teaching Attending Note Name of Resident: Blaine Guerrero ATTENDING PHYSICIAN STATEMENT I saw and evaluated the patient. I reviewed the resident's note and discussed the case with the resident. I agree with the resident's findings and plan as documented. SUBJECTIVE: sen around 10 am she feels better in general. no N/V . no cp . SOB is better on CPAP. no adb pain . anxiety is better with benzos OBJECTIVE: NAd, awake, CPAP mask on No JVD Abd: soft, NT, NS , Ext : No edema no disposable stethoscope for auscultation is available ASSESSMENT AND PLAN: 44 y/o lady with h/o lymphoma and DVT who presented with myalgia and was found to have acute hypoxic resp failure due to COVID 19 1- COVID 19 infection 2- Acute hypoxic resp failure 3- B/l PNA 4- Anxiety 5- Sinus tachy in setting of anxiety 6- s/p septic shock 7- Transaminitis , due to COVID plan : - s/p plaquenil, - declined plasma - cont steroids ( day 7 ) and lovenox - leukocytosis due to steroids - cont CPAP - inflammatory markers are stable - cont xanax - monitor HR - monitor LFTS spoke to sister with patient 's permission
[2020-01-04 07:55] LABS: HEMATOCRIT 36.3 % (32.4-45.2); HEMOGLOBIN 12.1 GM/dL (10.7-15.3); MCH 30.2 pg (25.7-33.7); MCHC 33.4 g/dl (32.0-36.0); MEAN CELL VOLUME 90.4 fl (80-96); MEAN PLT VOLUME 8.2 fl (7.5-11.1); PLATELET COUNT 300 K/MM3 (134-434); RBC 4.02 M/mm3 (3.60-5.2); RDW 14.6 % (11.6-15.6); WHITE BLOOD COUNT 19.8 K/mm3 (4.0-10.0)
[2020-01-04 09:32] LABS: ALBUMIN 2.7 g/dl (3.4-5.0); BILIRUBIN,TOTAL 0.6 mg/dL (0.2-1); CALCIUM 8.8 mg/dL (8.5-10.1); CREATININE 0.5 mg/dL (0.55-1.3); MAGNESIUM 2.2 mg/dL (1.8-2.4); PHOSPHOROUS 4.3 mg/dL (2.5-4.9); POTASSIUM 4.4 mmol/L (3.5-5.1); TOT PROT 6.4 g/dl (6.4-8.2)
[2020-01-04] MEDS: methylPREDNISolone NA SUCC 40 MG/1 ML VIAL IVPUSH SCH ×2 (10:06→23:09)
[2020-01-04] MEDS: LACTOBACILLUS ACIDOPHILUS 1 TABLET PO SCH (10:07)
[2020-01-04] MEDS: ENOXAPARIN NA (PORCINE) 100 MG/1 ML DISP.SYRIN SQ SCH (10:07)
[2020-01-04] MEDS: PANTOPRAZOLE 40 MG TABLET PO SCH (10:07)
[2020-01-04] MEDS: CHOLECALCIFEROL (VIT D3) 1,000 UNIT (25 MCG) TABLET PO SCH (10:08)
[2020-01-04] MEDS: ALPRAZolam 0.25 MG TABLET PO SCH ×2 (10:08→23:09)
[2020-01-04] MEDS: ZINC SULFATE 220 MG CAPSULE (FP) PO SCH (10:10)
[2020-01-04] MEDS: ASCORBIC ACID 500 MG TABLET (FP) PO SCH (12:32)
--- NOTE | 2020-01-04 12:42 | PN ---
Progress Note (short form) - Note Progress Note: PULMONARY ON AVAPS/100%/RATE 16/ VT 475ML/EPAP 10/SPO2 90's VSS/AFEBRILE/ Gen: Stable Heart: tachycardic, regular Lung: scattered rales Abd: soft, nontender Ext: no edema Active Medications/labs/images/micro/notes/ABG reviewed INFLAMMATORY MARKERS NOTED ASSESSMENT AND PLAN Acute Hypoxic Respiratory Failure COVID Pneumonia Tachycardia resolved ARDS resolved Septic Shock resolved Elevated LFTs h/o Hodgkins Lymphoma h/o DVTs - needs oob to chair/incentive spirometry - empiric steroids - empiric anticoagulation - titrate FiO2 to keep SpO2 >90% - pulse oximetry monitoring Gene RIOS MD
--- NOTE | 2020-01-04 14:02 | PN ---
Physical Exam: SUBJECTIVE: Patient seen and examined at bedside. There were no acute events overnight. This AM she says her anxiety has been stable. SOB is improving. She denies ROS. OBJECTIVE: Vital Signs Temp Pulse Resp BP Pulse Ox 97.9 F 127 H 26 H 110/74 90 L 01/04/20 14:00 01/04/20 14:00 01/04/20 14:00 01/04/20 14:00 01/04/20 09:00 GENERAL: AO x3 NAD HEAD: NCAT EYES: NADYA, EOMI, sclera anicteric, conjunctiva clear. No ptosis. ENT: Ears normal, nares patent, oropharynx clear without exudates, moist mucous membranes. NECK: Trachea midline, full range of motion, supple. LUNGS: Equal rise and fall of chest, no accessory muscle use. HEART: Tachycardia ABDOMEN: Soft, nontender, nondistended, no guarding, no rebound EXTREMITIES: 2+ pulses, warm, well-perfused, no edema. NEUROLOGICAL: Cranial nerves II through XII grossly intact. Strength 5/5 in UE and LE in both distal and proximal flexors. Brachial reflex 2+ BL. PSYCH: Normal mood, normal affect. SKIN: Warm, dry, normal turgor, no rashes or lesions noted Laboratory Results - last 24 hr 01/04/20 01/04/20 01/04/20 07:05 07:05 07:05 WBC 19.8 H RBC 4.02 Hgb 12.1 Hct 36.3 MCV 90.4 MCH 30.2 MCHC 33.4 RDW 14.6 Plt Count 300 MPV 8.2 D-Dimer 1992 H Sodium 138 Potassium 4.4 Chloride 100 Carbon Dioxide 28 Anion Gap 10 BUN 16.0 Creatinine 0.5 L Est GFR (CKD-EPI)AfAm 138.36 Est GFR (CKD-EPI)NonAf 119.38 Random Glucose 102 Calcium 8.8 Phosphorus 4.3 Magnesium 2.2 Ferritin 581.8 H Total Bilirubin 0.6 AST 46 H ALT 99 H Alkaline Phosphatase 136 H LD Total 554 H Total Protein 6.4 Albumin 2.7 L Active Medications Generic Name Dose Route Start Last Admin Trade Name Freq PRN Reason Stop Dose Admin Acetaminophen 650 mg 12/28/19 15:59 Tylenol - PO Q6H PRN PAIN Albuterol Sulfate 2 puff 12/28/19 15:59 Ventolin Hfa Inhaler - IH Q4H PRN SHORT OF BREATH/WHEEZING Alprazolam 0.25 mg 01/03/20 23:05 01/04/20 10:08 Xanax - PO 0.25 mg BID DARIEL Administration Ascorbic Acid 500 mg 12/30/19 10:00 01/04/20 12:32 Vitamin C - PO 500 mg DAILY DARIEL Administration Cholecalciferol 1,000 unit 12/30/19 10:00 01/04/20 10:08 Vitamin D3 - PO 1,000 unit DAILY DARIEL Administration Enoxaparin Sodium 90 mg 12/28/19 22:00 01/04/20 10:07 Lovenox - SQ 90 mg BID DARIEL Administration Lactobacillus Acidophilus 1 tab 12/29/19 10:00 01/04/20 10:07 Bacid - PO 1 tab DAILY DARIEL Administration Methylprednisolone Sodium Succinate 50 mg 12/28/19 22:00 01/04/20 10:06 Solu-Medrol - IVPUSH 50 mg BID DARIEL Administration Metoprolol Tartrate 5 mg 12/29/19 17:46 01/02/20 12:59 Lopressor Injection - IVPUSH 5 mg Q4H PRN Administration TACHYCARDIA Pantoprazole Sodium 40 mg 12/29/19 10:00 01/04/20 10:07 Protonix - PO 40 mg DAILY DARIEL Administration Zinc Sulfate 220 mg 12/29/19 10:00 01/04/20 10:10 Orazinc - PO 220 mg DAILY DARIEL Administration ASSESSMENT/PLAN: 44 y/o female PMH Hodgkins' lymphoma s/p radiation and stem cell transplant (2011), appendectomy, cholecystectomy, anxiety, who presents with acute hypoxic respiratory failure 2/2 to CoVid-19 infection. # Acute hypoxic respiratory failure 2/2 Covid-19 PNA - CoVid-19 + - QTC 459 - Saturating at 91% on CPAP AVAPS mode of NIPPV (350, 14-36, 100% FiO2) - Solumedrol 50 BID, lovenox 90 BID - Albuterol inhaler - Educated pt on utility of laying lateral decubitus and prone if possible - Cont. to monitor inflammatory markers. Today all markers except LDH (554 from 537) are down - Vitamin C, vitamin D, and zinc - Isolation precautions: Contact, droplet, airborne - Strict hand washing - Consult ID # Sinus tachycardia - Autocad consult given increased energy expenditure of tachycardia/high [place] and demands of mask - Possibly 2/2 volume depletion and/or anxiety - Encourage PO intake with caution to minimize time off of CPAP - Lospressor 5 mg for repeat episodes - Consult cardiology: Holter monitor 2011 for "palpitations" that showed high resting HR: Underlying rhythm sinus; average HR 98 bpm; maximum 150 bpm sinus tach; no arrhythmias. # Anxiety - Alprazolam 0.25 mg BID - Alprazolam 0.25 mg q6h prn - Episodes of anxiety exacerbate hypoxia # FEN - PO, cautious with only brief period of having mask off. F/u double end sewer recommendations. - Cont. to monitor - Liquid diet # DVT ppx - Lovenox 90 BID # Disposition - Saturating at 91% on CPAP - Full code Blaine Guerrero MD Visit type - Emergency Visit Emergency Visit: No - New Patient This patient is new to me today: No - Critical Care Critical Care patient: No ATTENDING PHYSICIAN STATEMENT I saw and evaluated the patient. I reviewed the resident's note and discussed the case with the resident. I agree with the resident's findings and plan as documented. SUBJECTIVE: OBJECTIVE: ASSESSMENT AND PLAN:
--- NOTE | 2020-01-04 16:12 | PN ---
Teaching Attending Note Name of Resident: Blaine Guerrero ATTENDING PHYSICIAN STATEMENT I saw and evaluated the patient. I reviewed the resident's note and discussed the case with the resident. I agree with the resident's findings and plan as documented. SUBJECTIVE: seen at around 10 am No fever or chills. she felt a little anxious . SOB is stable . no pain. no diarrhea OBJECTIVE: NAD, awake, CPAP mask on No JVD. Abd: soft, NT, NS. Ext: No edema no disposable stethoscope for auscultation is available ASSESSMENT AND PLAN: 44 y/o lady with h/o lymphoma and DVT who presented with myalgia and was found to have acute hypoxic resp failure due to COVID 19 1- COVID 19 infection 2- Acute hypoxic resp failure 3- B/l PNA 4- Anxiety 5- Sinus tachy in setting of anxiety 6- s/p septic shock 7- Transaminitis , due to COVID plan : - s/p plaquenil - cont steroids (day 8 ) and lovenox - leukocytosis due to steroids - stable inflammatory markers - cont CPAP - cont xanax - monitor HR - monitor LFTS
--- NOTE | 2020-01-04 16:38 | PN ---
Progress Note, Physician History of Present Illness: 44yof with PMhx of lymphoma in remission, ( 8 yr) presented to ED. with SOB and myalgias q12yber and was found to be on 68% on RA on admission as per ED. Notes. DX with COVID PNA Developed septic shock ARDS PMH Acute Hypoxic Respiratory Failure due to ARDS due to COVID19 Pneumonitis Septic Shock Transaminitis Hodgkins lymphoma s/p radiation and stem cell transplant in 2012 - Current Medication List Current Medications: Active Medications Acetaminophen (Tylenol -) 650 mg PO Q6H PRN PRN Reason: PAIN Albuterol Sulfate (Ventolin Hfa Inhaler -) 2 puff IH Q4H PRN PRN Reason: SHORT OF BREATH/WHEEZING Alprazolam (Xanax -) 0.25 mg PO BID [facility] Last Admin: 01/04/20 10:08 Dose: 0.25 mg Documented by: Ascorbic Acid (Vitamin C -) 500 mg PO DAILY [facility] Last Admin: 01/04/20 12:32 Dose: 500 mg Documented by: Cholecalciferol (Vitamin D3 -) 1,000 unit PO DAILY [facility] Last Admin: 01/04/20 10:08 Dose: 1,000 unit Documented by: Enoxaparin Sodium (Lovenox -) 90 mg SQ BID [facility] Last Admin: 01/04/20 10:07 Dose: 90 mg Documented by: Lactobacillus Acidophilus (Bacid -) 1 tab PO DAILY [facility] Last Admin: 01/04/20 10:07 Dose: 1 tab Documented by: Methylprednisolone Sodium Succinate (Solu-Medrol -) 50 mg IVPUSH BID [facility] Last Admin: 01/04/20 10:06 Dose: 50 mg Documented by: Metoprolol Tartrate (Lopressor Injection -) 5 mg IVPUSH Q4H PRN PRN Reason: TACHYCARDIA Last Admin: 01/02/20 12:59 Dose: 5 mg Documented by: Pantoprazole Sodium (Protonix -) 40 mg PO DAILY [facility] Last Admin: 01/04/20 10:07 Dose: 40 mg Documented by: Zinc Sulfate (Orazinc -) 220 mg PO DAILY [facility] Last Admin: 01/04/20 10:10 Dose: 220 mg Documented by: - Objective Vital Signs: Vital Signs Temperature 97.9 F 01/04/20 14:00 Pulse Rate 127 H 01/04/20 14:00 Respiratory Rate 26 H 01/04/20 14:00 Blood Pressure 110/74 01/04/20 14:00 O2 Sat by Pulse Oximetry (%) 90 L 01/04/20 09:00 Eyes: Yes: WNL, Conjunctiva Clear, EOM Intact HENT: Yes: WNL, Atraumatic, Normocephalic Neck: Yes: WNL, Supple, Trachea Midline Cardiovascular: Yes: WNL, Regular Rate and Rhythm Respiratory: Yes: WNL, Regular, CTA Bilaterally Gastrointestinal: Yes: WNL, Normal Bowel Sounds Genitourinary: Yes: WNL Musculoskeletal: Yes: WNL Extremities: Yes: WNL Edema: No Integumentary: Yes: WNL Neurological: Yes: WNL, Alert, Oriented ...Motor Strength: WNL Psychiatric: Yes: WNL Labs: CBC, BMP 01/04/20 07:05 01/04/20 07:05 INR, PTT INR 1.25 (0.83-1.09) H 12/19/19 13:13 Problem List - Problems (1) Acute respiratory failure with hypoxia Code(s): J96.01 - ACUTE RESPIRATORY FAILURE WITH HYPOXIA (2) COVID-19 Code(s): U07.1 - COVID POSITIVE (3) Suspected COVID-19 virus infection Code(s): R68.89 - OTHER GENERAL SYMPTOMS AND SIGNS (4) Abdominal pain Code(s): R10.9 - UNSPECIFIED ABDOMINAL PAIN Qualifiers: Abdominal location: lower abdomen (5) Arm pain, left Code(s): M79.602 - PAIN IN LEFT ARM (6) Numbness Code(s): R20.0 - ANESTHESIA OF SKIN (7) Postoperative pain Code(s): G89.18 - OTHER ACUTE POSTPROCEDURAL PAIN (8) Sternal pain Code(s): R07.89 - OTHER CHEST PAIN (9) TIA (transient ischemic attack) Code(s): G45.9 - TRANSIENT CEREBRAL ISCHEMIC ATTACK, UNSPECIFIED Assessment/Plan - Problems (1) Obesity Code(s): E66.9 - OBESITY, UNSPECIFIED (2) HTN (hypertension) Code(s): I10 - ESSENTIAL (PRIMARY) HYPERTENSION (3) NHL (non-Hodgkin's lymphoma) Assessment/Plan: in remission. F/u with PMD, oncologist. Code(s): C85.90 - NON-HODGKIN LYMPHOMA, UNSPECIFIED, UNSPECIFIED SITE (4) Anxiety Code(s): F41.9 - ANXIETY DISORDER, UNSPECIFIED (5) Acute respiratory failure with hypoxia Code(s): J96.01 - ACUTE RESPIRATORY FAILURE WITH HYPOXIA (6) COVID-19 Assessment/Plan: O2, steroids, anticoagulants per PMD, waterproofer helper. F/u inflammatory markers. Code(s): U07.1 - COVID POSITIVE (7) Sinus tachycardia Assessment/Plan: multiple etiologies, including anxiety, respiratory distress, CHF, ?sepsis. HR improving with anxiolytic and metoprolol. Of note: pt had Holter monitor 2012 for "palpitations" that showed high resting HR: Underlying rhythm sinus; average HR 98 bpm; maximum 150 bpm sinus tach; no arrhythmias. Code(s): R00.0 - TACHYCARDIA, UNSPECIFIED
[2020-01-05 08:27] LABS: HEMATOCRIT 38.4 % (32.4-45.2); HEMOGLOBIN 12.5 GM/dL (10.7-15.3); MCHC 32.6 g/dl (32.0-36.0); MEAN CELL VOLUME 91.9 fl (80-96); MEAN PLT VOLUME 8.2 fl (7.5-11.1); PLATELET COUNT 304 K/MM3 (134-434); RBC 4.18 M/mm3 (3.60-5.2); RDW 14.7 % (11.6-15.6); WHITE BLOOD COUNT 16.9 K/mm3 (4.0-10.0)
[2020-01-05 09:10] LABS: BILIRUBIN,TOTAL 0.7 mg/dL (0.2-1); BLOOD UREA NITROGEN 14.3 mg/dL (7-18); CALCIUM 9.2 mg/dL (8.5-10.1); CREATININE 0.6 mg/dL (0.55-1.3); MAGNESIUM 2.3 mg/dL (1.8-2.4); PHOSPHOROUS 4.1 mg/dL (2.5-4.9); POTASSIUM 4.5 mmol/L (3.5-5.1); TOT PROT 6.9 g/dl (6.4-8.2)
[2020-01-05] MEDS: ALPRAZolam 0.25 MG TABLET PO SCH (10:42)
[2020-01-05] MEDS: CHOLECALCIFEROL (VIT D3) 1,000 UNIT (25 MCG) TABLET PO SCH (10:42)
[2020-01-05] MEDS: PANTOPRAZOLE 40 MG TABLET PO SCH (10:43)
[2020-01-05] MEDS: methylPREDNISolone NA SUCC 40 MG/1 ML VIAL IVPUSH SCH ×2 (10:43→21:26)
[2020-01-05] MEDS: ZINC SULFATE 220 MG CAPSULE (FP) PO SCH (10:43)
[2020-01-05] MEDS: ASCORBIC ACID 500 MG TABLET (FP) PO SCH (10:43)
[2020-01-05] MEDS: LACTOBACILLUS ACIDOPHILUS 1 TABLET PO SCH (10:43)
--- NOTE | 2020-01-05 11:50 | PN ---
Progress Note, Physician Chief Complaint: Pt A&OX3; on BIPAP; no chest pain; denies SOB. History of Present Illness: 44 year old woman with PMH Hodgkins' lymphoma X3 s/p radiation and stem cell transplant in 2012, not on active treatment, in remission x 8 yrs, appendectomy, cholecystectomy, anxiety, obesity, presenting with SOB and myalgias. States that she has felt ill for the past 10 days with myalgias and malaise, but over the past 5 days, she has had progressively worsening SOB and SONG, associated with cough, loss of appetite, and fevers/chills. 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 Sister is a known COVID positive. Pt COVID-19 detected 12/19/2019. - Current Medication List Current Medications: Active Medications Acetaminophen (Tylenol -) 650 mg PO Q6H PRN PRN Reason: PAIN Albuterol Sulfate (Ventolin Hfa Inhaler -) 2 puff IH Q4H PRN PRN Reason: SHORT OF BREATH/WHEEZING Alprazolam (Xanax -) 0.25 mg PO BID [facility] Last Admin: 01/05/20 10:42 Dose: 0.25 mg Documented by: Ascorbic Acid (Vitamin C -) 500 mg PO DAILY [facility] Last Admin: 01/05/20 10:43 Dose: 500 mg Documented by: Cholecalciferol (Vitamin D3 -) 1,000 unit PO DAILY [facility] Last Admin: 01/05/20 10:42 Dose: 1,000 unit Documented by: Lactobacillus Acidophilus (Bacid -) 1 tab PO DAILY [facility] Last Admin: 01/05/20 10:43 Dose: 1 tab Documented by: Methylprednisolone Sodium Succinate (Solu-Medrol -) 50 mg IVPUSH BID [facility] Last Admin: 01/05/20 10:43 Dose: 50 mg Documented by: Metoprolol Tartrate (Lopressor Injection -) 5 mg IVPUSH Q4H PRN PRN Reason: TACHYCARDIA Last Admin: 01/02/20 12:59 Dose: 5 mg Documented by: Pantoprazole Sodium (Protonix -) 40 mg PO DAILY [facility] Last Admin: 01/05/20 10:43 Dose: 40 mg Documented by: Zinc Sulfate (Orazinc -) 220 mg PO DAILY [facility] Last Admin: 01/05/20 10:43 Dose: 220 mg Documented by: - Objective Vital Signs: Vital Signs Temperature 97.8 F 01/05/20 08:24 Pulse Rate 119 H 01/05/20 08:24 Respiratory Rate 26 H 01/05/20 08:24 Blood Pressure 124/82 01/05/20 08:24 O2 Sat by Pulse Oximetry (%) 95 01/05/20 08:16 Constitutional: Yes: Calm Eyes: Yes: WNL HENT: Yes: WNL Neck: Yes: WNL Cardiovascular: Yes: S1, S2, S4 Respiratory: Yes: Diminished, On BiPap Gastrointestinal: Yes: Soft, Abdomen, Obese ...Rectal Exam: Yes: Deferred Genitourinary: No: Anuria Breast(s): Yes: WNL Musculoskeletal: Yes: Muscle Weakness Extremities: Yes: Cool Edema: No Peripheral Pulses WNL: Yes Integumentary: Yes: WNL Neurological: Yes: WNL Psychiatric: Yes: Alert, Oriented, Other (anxiety) Labs: CBC, BMP 01/05/20 06:30 01/05/20 06:30 INR, PTT INR 1.25 (0.83-1.09) H 12/19/19 13:13 - ....Imaging Chest X-ray: Image Reviewed EKG: Image Reviewed Problem List - Problems (1) Obesity Code(s): E66.9 - OBESITY, UNSPECIFIED (2) HTN (hypertension) Assessment/Plan: on no medications presently; BP controlled. Problems reviewed: Yes Code(s): I10 - ESSENTIAL (PRIMARY) HYPERTENSION (3) NHL (non-Hodgkin's lymphoma) Assessment/Plan: in remission. F/u with PMD, oncologist. Code(s): C85.90 - NON-HODGKIN LYMPHOMA, UNSPECIFIED, UNSPECIFIED SITE (4) Anxiety Code(s): F41.9 - ANXIETY DISORDER, UNSPECIFIED (5) Acute respiratory failure with hypoxia Code(s): J96.01 - ACUTE RESPIRATORY FAILURE WITH HYPOXIA (6) COVID-19 Assessment/Plan: Detected 12/19/19. O2, steroids, anticoagulants per PMD, electronic train control technician. F/u inflammatory markers. Code(s): U07.1 - COVID POSITIVE (7) Sinus tachycardia Assessment/Plan: multiple etiologies, including anxiety, respiratory distress, CHF, sepsis. HR improving with anxiolytic and metoprolol. F/u TSH. Of note: pt had Holter monitor 2011 for "palpitations" that showed high resting HR: Underlying rhythm sinus; average HR 98 bpm; maximum 150 bpm sinus tach; no arrhythmias. Code(s): R00.0 - TACHYCARDIA, UNSPECIFIED
--- NOTE | 2020-01-05 13:35 | PN ---
Progress Note (short form) - Note Progress Note: PULMONARY REMAINS ON AVAPS/100%/RATE 16/ [place] 475ML/EPAP 10/SPO2 90's RELUCTANT TO CHANGE MODE OF VENTILATION VSS/AFEBRILE/ Gen: Stable Heart: tachycardic, regular Lung: scattered rales Abd: soft, nontender Ext: no edema Active Medications/labs/images/micro/notes/ABG reviewed INFLAMMATORY MARKERS NOTED ASSESSMENT AND PLAN Acute Hypoxic Respiratory Failure COVID Pneumonia Tachycardia resolved ARDS resolved Septic Shock resolved Elevated LFTs h/o Hodgkins Lymphoma h/o DVTs - needs oob to chair/incentive spirometry - empiric steroids - empiric anticoagulation - titrate FiO2 to keep SpO2 >90% - pulse oximetry monitoring - patient will attempt high flow in AM Gene RIOS MD
--- NOTE | 2020-01-05 13:41 | PN ---
Physical Exam: SUBJECTIVE: Patient seen and examined at bedside. There were no acute events overnight. This AM she says SOB is the same and she feels highly anxious. She denies ROS. OBJECTIVE: Vital Signs Temp Pulse Resp BP Pulse Ox 98.3 F 109 H 23 H 120/88 94 L 01/05/20 14:10 01/05/20 14:10 01/05/20 14:10 01/05/20 14:10 01/05/20 09:00 GENERAL: AO x3 NAD HEAD: NCAT EYES: NADYA, EOMI, sclera anicteric, conjunctiva clear. No ptosis. ENT: Ears normal, nares patent, oropharynx clear without exudates, moist mucous membranes. NECK: Trachea midline, full range of motion, supple. LUNGS: Equal rise and fall of chest, no accessory muscle use. HEART: Tachycardia ABDOMEN: Soft, nontender, nondistended, no guarding, no rebound EXTREMITIES: 2+ pulses, warm, well-perfused, no edema. NEUROLOGICAL: Cranial nerves II through XII grossly intact. Strength 5/5 in UE and LE in both distal and proximal flexors. Brachial reflex 2+ BL. PSYCH: Normal mood, normal affect. SKIN: Warm, dry, normal turgor, no rashes or lesions noted Laboratory Results - last 24 hr 01/04/20 01/05/20 01/05/20 07:05 06:30 06:30 WBC 16.9 H RBC 4.18 Hgb 12.5 Hct 38.4 MCV 91.9 MCH 30.0 MCHC 32.6 RDW 14.7 Plt Count 304 MPV 8.2 D-Dimer Sodium 138 Potassium 4.5 Chloride 98 Carbon Dioxide 31 Anion Gap 10 BUN 14.3 Creatinine 0.6 Est GFR (CKD-EPI)AfAm 130.30 Est GFR (CKD-EPI)NonAf 112.42 Random Glucose 119 H Calcium 9.2 Phosphorus 4.1 Magnesium 2.3 Ferritin 620.1 H Total Bilirubin 0.7 AST 44 H ALT 125 H Alkaline Phosphatase 146 H LD Total 488 H C-Reactive Protein 1.3 H 1.3 H Total Protein 6.9 Albumin 3.0 L 01/05/20 06:30 WBC RBC Hgb Hct MCV MCH MCHC RDW Plt Count MPV D-Dimer 1725 H Sodium Potassium Chloride Carbon Dioxide Anion Gap BUN Creatinine Est GFR (CKD-EPI)AfAm Est GFR (CKD-EPI)NonAf Random Glucose Calcium Phosphorus Magnesium Ferritin Total Bilirubin AST ALT Alkaline Phosphatase LD Total C-Reactive Protein Total Protein Albumin Active Medications Generic Name Dose Route Start Last Admin Trade Name Freq PRN Reason Stop Dose Admin Acetaminophen 650 mg 12/28/19 15:59 Tylenol - PO Q6H PRN PAIN Albuterol Sulfate 2 puff 12/28/19 15:59 Ventolin Hfa Inhaler - IH Q4H PRN SHORT OF BREATH/WHEEZING Alprazolam 0.25 mg 01/03/20 23:05 01/05/20 10:42 Xanax - PO 0.25 mg BID DARIEL Administration Ascorbic Acid 500 mg 12/30/19 10:00 01/05/20 10:43 Vitamin C - PO 500 mg DAILY DARIEL Administration Cholecalciferol 1,000 unit 12/30/19 10:00 01/05/20 10:42 Vitamin D3 - PO 1,000 unit DAILY DARIEL Administration Lactobacillus Acidophilus 1 tab 12/29/19 10:00 01/05/20 10:43 Bacid - PO 1 tab DAILY DARIEL Administration Methylprednisolone Sodium Succinate 50 mg 12/28/19 22:00 01/05/20 10:43 Solu-Medrol - IVPUSH 50 mg BID DARIEL Administration Metoprolol Tartrate 5 mg 12/29/19 17:46 01/02/20 12:59 Lopressor Injection - IVPUSH 5 mg Q4H PRN Administration TACHYCARDIA Pantoprazole Sodium 40 mg 12/29/19 10:00 01/05/20 10:43 Protonix - PO 40 mg DAILY DARIEL Administration Zinc Sulfate 220 mg 12/29/19 10:00 01/05/20 10:43 Orazinc - PO 220 mg DAILY DARIEL Administration ASSESSMENT/PLAN: 44 y/o female PMH Hodgkins' lymphoma s/p radiation and stem cell transplant (2011), appendectomy, cholecystectomy, anxiety, who presents with acute hypoxic respiratory failure 2/2 to CoVid-19 infection. Patient would like time to think about tocilizumab. Will discuss with family and may start Thursday. # Acute hypoxic respiratory failure 2/2 Covid-19 PNA - CoVid-19 + - QTC 446 - Saturating at 95% on CPAP AVAPS mode of NIPPV (350, 14-36, 100% FiO2) - Solumedrol 50 BID, lovenox 90 BID - Albuterol inhaler - Educated pt on utility of laying lateral decubitus and prone if possible - Cont. to monitor inflammatory markers. Today all markers except LDH (554 from 537) are down - Vitamin C, vitamin D, and zinc - Isolation precautions: Contact, droplet, airborne - Strict hand washing - Consult ID # Sinus tachycardia - Interlocking Machine Operator consult given increased energy expenditure of tachycardia/high [place] and demands of mask - Possibly 2/2 volume depletion and/or anxiety - Encourage PO intake with caution to minimize time off of CPAP - Lospressor 5 mg for repeat episodes - Consult cardiology: Holter monitor 2011 for "palpitations" that showed high resting HR: Underlying rhythm sinus; average HR 98 bpm; maximum 150 bpm sinus tach; no arrhythmias. # Anxiety - Alprazolam 0.25 mg BID - Alprazolam 0.25 mg q6h prn - Episodes of anxiety exacerbate hypoxia # FEN - PO, cautious with only brief period of having mask off. F/u residential energy auditor recommendations. - Cont. to monitor - Liquid diet # DVT ppx - Lovenox 90 BID # Disposition - Saturating at 91% on CPAP - Full code Blaine Guerrero MD Visit type - Emergency Visit Emergency Visit: No - New Patient This patient is new to me today: No - Critical Care Critical Care patient: No ATTENDING PHYSICIAN STATEMENT I saw and evaluated the patient. I reviewed the resident's note and discussed the case with the resident. I agree with the resident's findings and plan as documented. SUBJECTIVE: OBJECTIVE: ASSESSMENT AND PLAN:
[2020-01-05] MEDS ORDERED: TOCILIZUMAB (ACTEMRA) 400 MG/20 ML VIAL IVPB SCH (14:45)
--- NOTE | 2020-01-05 15:54 | PN ---
Teaching Attending Note Name of Resident: Blaine Guerrero ATTENDING PHYSICIAN STATEMENT I saw and evaluated the patient. I reviewed the resident's note and discussed the case with the resident. I agree with the resident's findings and plan as documented. SUBJECTIVE: No fever or chills. She feels better today. No N/V. no pain, SOB is stable and slightly improved OBJECTIVE: NAD, awake, CPAP mask on No JVD. Abd: soft, NT, NS. Ext: No edema no disposable stethoscope for auscultation is available ASSESSMENT AND PLAN: 44 y/o lady with h/o lymphoma and DVT who presented with myalgia and was found to have acute hypoxic resp failure due to COVID 19 1- COVID 19 infection 2- Acute hypoxic resp failure 3- B/l PNA 4- Anxiety 5- Sinus tachy in setting of anxiety 6- s/p septic shock 7- Transaminitis , due to COVID plan : - s/p plaquenil - discussed with her plasma again. she refused - cont steroids (day 9 ) and lovenox - leukocytosis due to steroids - stable inflammatory markers - cont CPAP - cont xanax BID PRN - monitor HR - monitor LFTS - Will d/w ID.
[2020-01-05] MEDS: TOCILIZUMAB IVPB SCH ×2 (17:27→18:19)
[2020-01-05] MEDS: SODIUM CHLORIDE IVPB SCH ×2 (17:27→18:19)
[2020-01-06] MEDS: ALPRAZolam 0.25 MG TABLET PO SCH ×2 (02:57→17:10)
[2020-01-06 08:34] LABS: HEMATOCRIT 37.4 % (32.4-45.2); HEMOGLOBIN 12.3 GM/dL (10.7-15.3); MCH 29.9 pg (25.7-33.7); MEAN CELL VOLUME 90.7 fl (80-96); MEAN PLT VOLUME 7.5 fl (7.5-11.1); PLATELET COUNT 274 K/MM3 (134-434); RBC 4.12 M/mm3 (3.60-5.2); WHITE BLOOD COUNT 16.3 K/mm3 (4.0-10.0)
--- NOTE | 2020-01-06 08:56 | PN ---
Progress Note, Physician History of Present Illness: 44yof with PMhx of lymphoma in remission, ( 8 yr) presented to ED. with SOB and myalgias [id number] and was found to be on 68% on RA on admission as per ED. Notes. DX with COVID PNA Developed septic shock ARDS PMH Acute Hypoxic Respiratory Failure due to ARDS due to COVID19 Pneumonitis Septic Shock Transaminitis Hodgkins lymphoma s/p radiation and stem cell transplant in 2012 - Current Medication List Current Medications: Active Medications Acetaminophen (Tylenol -) 650 mg PO Q6H PRN PRN Reason: PAIN Albuterol Sulfate (Ventolin Hfa Inhaler -) 2 puff IH Q4H PRN PRN Reason: SHORT OF BREATH/WHEEZING Alprazolam (Xanax -) 0.25 mg PO BID [facility] Last Admin: 01/06/20 02:57 Dose: 0.25 mg Documented by: Ascorbic Acid (Vitamin C -) 500 mg PO DAILY [facility] Last Admin: 01/05/20 10:43 Dose: 500 mg Documented by: Cholecalciferol (Vitamin D3 -) 1,000 unit PO DAILY [facility] Last Admin: 01/05/20 10:42 Dose: 1,000 unit Documented by: Lactobacillus Acidophilus (Bacid -) 1 tab PO DAILY [facility] Last Admin: 01/05/20 10:43 Dose: 1 tab Documented by: Methylprednisolone Sodium Succinate (Solu-Medrol -) 50 mg IVPUSH BID [facility] Last Admin: 01/05/20 21:26 Dose: 50 mg Documented by: Metoprolol Tartrate (Lopressor Injection -) 5 mg IVPUSH Q4H PRN PRN Reason: TACHYCARDIA Last Admin: 01/02/20 12:59 Dose: 5 mg Documented by: Pantoprazole Sodium (Protonix -) 40 mg PO DAILY [facility] Last Admin: 01/05/20 10:43 Dose: 40 mg Documented by: Zinc Sulfate (Orazinc -) 220 mg PO DAILY [facility] Last Admin: 01/05/20 10:43 Dose: 220 mg Documented by: - Objective Vital Signs: Vital Signs Temperature 97.8 F 01/06/20 06:00 Pulse Rate 113 H 01/06/20 06:00 Respiratory Rate 19 01/06/20 06:00 Blood Pressure 123/71 01/06/20 06:00 O2 Sat by Pulse Oximetry (%) 94 L 01/06/20 08:09 Eyes: Yes: WNL, Conjunctiva Clear, EOM Intact HENT: Yes: WNL, Atraumatic, Normocephalic Neck: Yes: WNL, Supple, Trachea Midline Cardiovascular: Yes: WNL, Regular Rate and Rhythm Respiratory: Yes: WNL, Regular, CTA Bilaterally Gastrointestinal: Yes: WNL, Normal Bowel Sounds Genitourinary: Yes: WNL Musculoskeletal: Yes: WNL Extremities: Yes: WNL Edema: No Integumentary: Yes: WNL Neurological: Yes: WNL, Alert, Oriented ...Motor Strength: WNL Psychiatric: Yes: WNL Labs: CBC, BMP 01/06/20 08:11 INR, PTT INR 1.25 (0.83-1.09) H 12/19/19 13:13 Problem List - Problems (1) Acute respiratory failure with hypoxia Code(s): J96.01 - ACUTE RESPIRATORY FAILURE WITH HYPOXIA (2) COVID-19 Code(s): U07.1 - COVID POSITIVE (3) Suspected COVID-19 virus infection Code(s): R68.89 - OTHER GENERAL SYMPTOMS AND SIGNS (4) Abdominal pain Code(s): R10.9 - UNSPECIFIED ABDOMINAL PAIN Qualifiers: Abdominal location: lower abdomen (5) Arm pain, left Code(s): M79.602 - PAIN IN LEFT ARM (6) Numbness Code(s): R20.0 - ANESTHESIA OF SKIN (7) Postoperative pain Code(s): G89.18 - OTHER ACUTE POSTPROCEDURAL PAIN (8) Sternal pain Code(s): R07.89 - OTHER CHEST PAIN (9) TIA (transient ischemic attack) Code(s): G45.9 - TRANSIENT CEREBRAL ISCHEMIC ATTACK, UNSPECIFIED Assessment/Plan - Problems (1) Obesity Code(s): E66.9 - OBESITY, UNSPECIFIED (2) HTN (hypertension) Assessment/Plan: on no medications presently; BP controlled. Problems reviewed: Yes Code(s): I10 - ESSENTIAL (PRIMARY) HYPERTENSION (3) NHL (non-Hodgkin's lymphoma) Assessment/Plan: in remission. F/u with PMD, oncologist. Code(s): C85.90 - NON-HODGKIN LYMPHOMA, UNSPECIFIED, UNSPECIFIED SITE (4) Anxiety Code(s): F41.9 - ANXIETY DISORDER, UNSPECIFIED (5) Acute respiratory failure with hypoxia Code(s): J96.01 - ACUTE RESPIRATORY FAILURE WITH HYPOXIA (6) COVID-19 Assessment/Plan: Detected 12/19/19. O2, steroids, anticoagulants per PMD, behavioral school counselors. F/u inflammatory markers. Code(s): U07.1 - COVID POSITIVE (7) Sinus tachycardia Assessment/Plan: multiple etiologies, including anxiety, respiratory distress, CHF, sepsis. HR improving with anxiolytic and metoprolol. F/u TSH. Of note: pt had Holter monitor 2011 for "palpitations" that showed high resting HR: Underlying rhythm sinus; average HR 98 bpm; maximum 150 bpm sinus tach; no arrhythmias. Code(s): R00.0 - TACHYCARDIA, UNSPECIFIED
[2020-01-06 09:16] LABS: ALBUMIN 2.9 g/dl (3.4-5.0); BILIRUBIN,TOTAL 0.6 mg/dL (0.2-1); CALCIUM 9.1 mg/dL (8.5-10.1); CREATININE 0.5 mg/dL (0.55-1.3); MAGNESIUM 2.2 mg/dL (1.8-2.4); PHOSPHOROUS 3.6 mg/dL (2.5-4.9); POTASSIUM 3.9 mmol/L (3.5-5.1); TOT PROT 6.6 g/dl (6.4-8.2)
[2020-01-06] MEDS: ZINC SULFATE 220 MG CAPSULE (FP) PO SCH (10:52)
[2020-01-06] MEDS: ASCORBIC ACID 500 MG TABLET (FP) PO SCH (10:52)
[2020-01-06] MEDS: PANTOPRAZOLE 40 MG TABLET PO SCH (10:52)
[2020-01-06] MEDS: methylPREDNISolone NA SUCC 40 MG/1 ML VIAL IVPUSH SCH ×2 (10:52→21:33)
[2020-01-06] MEDS: LACTOBACILLUS ACIDOPHILUS 1 TABLET PO SCH (10:53)
[2020-01-06] MEDS: CHOLECALCIFEROL (VIT D3) 1,000 UNIT (25 MCG) TABLET PO SCH (10:53)
--- NOTE | 2020-01-06 13:18 | PN ---
Progress Note (short form) - Note Progress Note: PULMONARY REMAINS ON AVAPS/100%/RATE 16/ [place] 475ML/EPAP 10/SPO2 90's RELUCTANT TO CHANGE MODE OF VENTILATION DISCUSSED HIGH FLOW PATIENT HAS AGREED TO TRIAL VSS/AFEBRILE/ Gen: Stable Heart: tachycardic, regular Lung: scattered rales Abd: soft, nontender Ext: no edema Active Medications/labs/images/micro/notes/ABG reviewed INFLAMMATORY MARKERS NOTED ASSESSMENT AND PLAN Acute Hypoxic Respiratory Failure COVID Pneumonia Tachycardia resolved ARDS resolved Septic Shock resolved Elevated LFTs h/o Hodgkins Lymphoma h/o DVTs - needs oob to chair/incentive spirometry - empiric steroids - empiric anticoagulation - titrate FiO2 to keep SpO2 >90% - pulse oximetry monitoring - patient will attempt high flow Gene RIOS MD
--- NOTE | 2020-01-06 13:50 | PN ---
Physical Exam: SUBJECTIVE: Patient seen and examined in the morning. No acute events overnight. No complaints of chest pain, shortness of breath, abdominal pain, nausea, vomiting or diarrhea. Patient has refused Toclizumab therapy, feels she is improving. OBJECTIVE: Vital Signs Period Temp Pulse Resp BP Sys/Rivera Pulse Ox Last 24 Hr 97.4 F-98.6 F 109-144 18-32 108-131/64-88 90-96 GENERAL: The patient is awake, alert, and fully oriented, in no acute distress. ENT:CPAP on face. LUNGS: Poor air entry b/l HEART: Tachycardic, regular rhythm ABDOMEN: Soft, nontender, nondistended, normoactive bowel sounds. EXTREMITIES: 2+ pulses, warm, well-perfused, no edema. NEUROLOGICAL: Cranial nerves II through XII grossly intact. PSYCH: Normal mood, normal affect. SKIN: Warm, dry, normal turgor, no rashes or lesions noted Laboratory Results - last 24 hr 01/06/20 01/06/20 01/06/20 08:11 08:11 08:11 WBC 16.3 H RBC 4.12 Hgb 12.3 Hct 37.4 MCV 90.7 MCH 29.9 MCHC 33.0 RDW 15.0 Plt Count 274 MPV 7.5 D-Dimer 1689 H Sodium 138 Potassium 3.9 Chloride 99 Carbon Dioxide 31 Anion Gap 7 L BUN 14.0 Creatinine 0.5 L Est GFR (CKD-EPI)AfAm 138.36 Est GFR (CKD-EPI)NonAf 119.38 Random Glucose 108 H Calcium 9.1 Phosphorus 3.6 Magnesium 2.2 Ferritin 570.8 H Total Bilirubin 0.6 AST 43 H ALT 140 H Alkaline Phosphatase 135 H LD Total 442 H C-Reactive Protein 1.1 H Total Protein 6.6 Albumin 2.9 L TSH 1.20 Active Medications Generic Name Dose Route Start Last Admin Trade Name Freq PRN Reason Stop Dose Admin Acetaminophen 650 mg 12/28/19 15:59 Tylenol - PO Q6H PRN PAIN Albuterol Sulfate 2 puff 12/28/19 15:59 Ventolin Hfa Inhaler - IH Q4H PRN SHORT OF BREATH/WHEEZING Alprazolam 0.25 mg 01/03/20 23:05 01/06/20 10:52 Xanax - PO 0.25 mg BID DARIEL Administration Ascorbic Acid 500 mg 12/30/19 10:00 01/06/20 10:52 Vitamin C - PO 500 mg DAILY DARIEL Administration Cholecalciferol 1,000 unit 12/30/19 10:00 01/06/20 10:53 Vitamin D3 - PO 1,000 unit DAILY DARIEL Administration Lactobacillus Acidophilus 1 tab 12/29/19 10:00 01/06/20 10:53 Bacid - PO 1 tab DAILY DARIEL Administration Methylprednisolone Sodium Succinate 50 mg 12/28/19 22:00 01/06/20 10:52 Solu-Medrol - IVPUSH 50 mg BID DARIEL Administration Metoprolol Tartrate 5 mg 12/29/19 17:46 01/02/20 12:59 Lopressor Injection - IVPUSH 5 mg Q4H PRN Administration TACHYCARDIA Pantoprazole Sodium 40 mg 12/29/19 10:00 01/06/20 10:52 Protonix - PO 40 mg DAILY [facility]ARIEL Administration Zinc Sulfate 220 mg 12/29/19 10:00 01/06/20 10:52 Orazinc - PO 220 mg DAILY DARIEL Administration ASSESSMENT/PLAN: 44F PMH Hodgkins' lymphoma s/p radiation and stem cell transplant (2011), appendectomy, cholecystectomy, anxiety, who presents with acute respiratory failure 2/2/ to COVID infection 1) Acute hypoxic respiratory failure 2/2 COVID - Patient did not want Plasma therapy. - Patient did not want Tocilizumab therapy. - High flow oxygen therapy. Maintain sats > 90% - CPAP if needed. Keep at bedside. - Completed antibiotics - Did not complete plaquenil course due to not wanting medication - Difficulty with proning/laying on lateral decubitus. - Solumedrol 50 BID - Lovenox 90 BID - zinc - vitamin c - vitamin d - albuterol inhaler - monitor ferritin, LDH, CRP. Trending down. - Continous pulse oximetry - Pulmonology consulted, appreciate recs 2) Hx of anxiety - Continue Xanax Q6H PRN 3) Sinus Tachycardia - Possibly 2/2 volume depletion and/or anxiety - Encourage PO intake with caution to minimize time off of CPAP - Lospressor 5 mg for repeat episodes - Consult cardiology: Holter monitor 2011 for "palpitations" that showed high resting HR: Underlying rhythm sinus; average HR 98 bpm; maximum 150 bpm sinus tach; no arrhythmias. - Added Ensure Clear at breakfast, Ensure Enlive, lunch, ice cream . Also added gingerale with meals and pudding for snacks for additional kcal/fluid intake. DVT: Lovenox BID F: Oral hydration E: Monitor CMP N: Liquid diet Dispo: Monitor on Telemetry. Continue close watch. Visit type - Emergency Visit Emergency Visit: Yes ED Registration Date: 12/19/19 Care time: The patient presented to the Emergency Department on the above date and was hospitalized for further evaluation of their emergent condition. - New Patient This patient is new to me today: No - Critical Care Critical Care patient: No ATTENDING PHYSICIAN STATEMENT I saw and evaluated the patient. I reviewed the resident's note and discussed the case with the resident. I agree with the resident's findings and plan as documented. SUBJECTIVE: OBJECTIVE: ASSESSMENT AND PLAN:
--- NOTE | 2020-01-06 16:48 | PN ---
Teaching Attending Note Name of Resident: Thuy Christie ATTENDING PHYSICIAN STATEMENT I saw and evaluated the patient. I reviewed the resident's note and discussed the case with the resident. I agree with the resident's findings and plan as documented. SUBJECTIVE: no fever or chills. No JAMES . SOB is stable. no CP . Loose stool OBJECTIVE: NAD, awake, CPAP mask on No JVD. Abd: soft, NT, NS. Ext: No edema no disposable stethoscope for auscultation is available. ASSESSMENT AND PLAN: 44 y/o lady with h/o lymphoma and DVT who presented with myalgia and was found to have acute hypoxic resp failure due to COVID 19 1- COVID 19 infection 2- Acute hypoxic resp failure 3- B/l PNA 4- Anxiety 5- Sinus tachy in setting of anxiety 6- S/p septic shock 7- Transaminitis , due to COVID Plan : - S/p plaquenil. Declined plasma. - I offered her tocilizumab but she declined after discussing side effects. - cont steroids (day 10 ) and resume lovenox ( order fell off ) - will d/w pulmonary the duration of steroids - leukocytosis due to steroids. - Inflammatory markers are trending down - cont CPAP - cont xanax BID PRN - monitor HR - monitor LFTS ( stable ) ASSESSMENT AND PLAN:
[2020-01-06] MEDS: ENOXAPARIN NA (PORCINE) 100 MG/1 ML DISP.SYRIN SQ SCH (21:33)
[2020-01-07] MEDS: ALPRAZolam 0.25 MG TABLET PO SCH ×3 (02:00→22:05)
[2020-01-07 06:56] LABS: BASO % 0.6 % (0-2.0); EOS % 0.1 % (0-4.5); HEMOGLOBIN 12.4 GM/dL (10.7-15.3); MCH 30.4 pg (25.7-33.7); MCHC 33.5 g/dl (32.0-36.0); MEAN CELL VOLUME 90.7 fl (80-96); MEAN PLT VOLUME 7.6 fl (7.5-11.1); MONO % 3.4 % (3.8-10.2); NEUT % 90.9 % (42.8-82.8); PLATELET COUNT 263 K/MM3 (134-434); RBC 4.08 M/mm3 (3.60-5.2); RDW 15.4 % (11.6-15.6); WHITE BLOOD COUNT 16.8 K/mm3 (4.0-10.0)
[2020-01-07 07:08] LABS: ALBUMIN 2.8 g/dl (3.4-5.0); BILIRUBIN,TOTAL 0.4 mg/dL (0.2-1); BLOOD UREA NITROGEN 14.3 mg/dL (7-18); CALCIUM 8.9 mg/dL (8.5-10.1); CREATININE 0.5 mg/dL (0.55-1.3); MAGNESIUM 2.4 mg/dL (1.8-2.4); PHOSPHOROUS 3.4 mg/dL (2.5-4.9); TOT PROT 6.4 g/dl (6.4-8.2)
[2020-01-07] MEDS ORDERED: ALPRAZolam 0.25 MG TABLET PO ONE (08:54)
[2020-01-07 09:41] LABS: ANISOCYTOSIS 0; MACROCYTOSIS 0; PLATELET ESTIMATE NORMAL
[2020-01-07] MEDS: methylPREDNISolone NA SUCC 40 MG/1 ML VIAL IVPUSH SCH (09:46)
[2020-01-07] MEDS: ENOXAPARIN NA (PORCINE) 100 MG/1 ML DISP.SYRIN SQ SCH ×2 (09:49→22:03)
[2020-01-07] MEDS: PANTOPRAZOLE 40 MG TABLET PO SCH (09:50)
[2020-01-07] MEDS: ZINC SULFATE 220 MG CAPSULE (FP) PO SCH (09:50)
[2020-01-07] MEDS: ASCORBIC ACID 500 MG TABLET (FP) PO SCH (09:50)
[2020-01-07] MEDS: LACTOBACILLUS ACIDOPHILUS 1 TABLET PO SCH (09:50)
[2020-01-07] MEDS: CHOLECALCIFEROL (VIT D3) 1,000 UNIT (25 MCG) TABLET PO SCH (09:51)
--- NOTE | 2020-01-07 10:55 | PN ---
Progress Note (short form) - Note Progress Note: PULMONARY REMAINS ON AVAPS/100%/RATE 16/ [place] 475ML/EPAP 10/SPO2 90's RELUCTANT TO CHANGE MODE OF VENTILATION DISCUSSED HIGH FLOW/WAS SUPPOSED TO TRY YESTERDAY TODAY SHE REFUSES VSS/AFEBRILE/ Gen: Stable Heart: tachycardic, regular Lung: scattered rales Abd: soft, nontender Ext: no edema Active Medications/labs/images/micro/notes/ABG reviewed INFLAMMATORY MARKERS NOTED ASSESSMENT AND PLAN Acute Hypoxic Respiratory Failure COVID Pneumonia Tachycardia resolved ARDS resolved Septic Shock resolved Elevated LFTs h/o Hodgkins Lymphoma h/o DVTs - needs oob to chair/incentive spirometry - empiric steroids - empiric anticoagulation - titrate FiO2 to keep SpO2 >90% - pulse oximetry monitoring - may need SNF placement Gene RIOS MD
--- NOTE | 2020-01-07 13:58 | PN ---
Physical Exam: SUBJECTIVE: Patient seen and examined at bedside. Overnight she experienced anxiety. This AM she attempted a trial of Hi-flow NC but desaturated, with inability to sustain o2 saturation above 90%. Overall she reports feeling better and is upset at her slow progress. OBJECTIVE: Vital Signs Temp Pulse Resp BP Pulse Ox 98.5 F 136 H 22 H 125/75 89 L 01/07/20 14:00 01/07/20 14:00 01/07/20 14:00 01/07/20 14:00 01/07/20 15:06 GENERAL: AO x3 NAD, when SOB communicates best via notepad on cell phone, a nxious HEAD: NCAT EYES: NADYA, EOMI, sclera anicteric, conjunctiva clear. No ptosis. ENT: Ears normal, nares patent, oropharynx clear without exudates, moist mucous membranes. NECK: Trachea midline, full range of motion, supple. LUNGS: Equal rise and fall of chest, no accessory muscle use. HEART: Tachycardia ABDOMEN: Soft, nontender, nondistended, no guarding, no rebound EXTREMITIES: 2+ pulses, warm, well-perfused, no edema. NEUROLOGICAL: Cranial nerves II through XII grossly intact. Strength 5/5 in UE and LE in both distal and proximal flexors. Brachial reflex 2+ BL. PSYCH: Normal mood, normal affect. SKIN: Warm, dry, normal turgor, no rashes or lesions noted Laboratory Results - last 24 hr 01/07/20 01/07/20 01/07/20 05:55 05:55 05:55 WBC 16.8 H RBC 4.08 Hgb 12.4 Hct 37.0 MCV 90.7 MCH 30.4 MCHC 33.5 RDW 15.4 Plt Count 263 MPV 7.6 Absolute Neuts (auto) 15.3 H Neutrophils % 90.9 H Neutrophils % (Manual) 85.1 H Band Neutrophils % 0.0 Lymphocytes % 5.0 L D Lymphocytes % (Manual) 4.0 L D Monocytes % 3.4 L Monocytes % (Manual) 5 Eosinophils % 0.1 D Eosinophils % (Manual) 0.0 Basophils % 0.6 Basophils % (Manual) 0.0 Myelocytes % (Man) 5 H D Promyelocytes % (Man) 0 Blast Cells % (Manual) 0 Nucleated RBC % 0 Metamyelocytes 1 Hypochromia 0 Platelet Estimate Normal Polychromasia 0 Poikilocytosis 0 Anisocytosis 0 Microcytosis 0 Macrocytosis 0 D-Dimer 1824 H Sodium 139 Potassium 4.0 Chloride 99 Carbon Dioxide 32 Anion Gap 8 BUN 14.3 Creatinine 0.5 L Est GFR (CKD-EPI)AfAm 138.36 Est GFR (CKD-EPI)NonAf 119.38 Random Glucose 108 H Calcium 8.9 Phosphorus 3.4 Magnesium 2.4 Ferritin 589.5 H Total Bilirubin 0.4 AST 53 H ALT 165 H Alkaline Phosphatase 143 H LD Total 476 H C-Reactive Protein 1.8 H Total Protein 6.4 Albumin 2.8 L Active Medications Generic Name Dose Route Start Last Admin Trade Name Freq PRN Reason Stop Dose Admin Acetaminophen 650 mg 12/28/19 15:59 Tylenol - PO Q6H PRN PAIN Albuterol Sulfate 2 puff 12/28/19 15:59 Ventolin Hfa Inhaler - IH Q4H PRN SHORT OF BREATH/WHEEZING Alprazolam 0.25 mg 01/03/20 23:05 01/07/20 09:32 Xanax - PO Not Given BID DARIEL Ascorbic Acid 500 mg 12/30/19 10:00 01/07/20 09:50 Vitamin C - PO 500 mg DAILY [facility]IEL Administration Cholecalciferol 1,000 unit 12/30/19 10:00 01/07/20 09:51 Vitamin D3 - PO 1,000 unit DAILY [facility]IEL Administration Enoxaparin Sodium 90 mg 01/06/20 22:00 01/07/20 09:49 Lovenox - SQ 90 mg BID DARIEL Administration Lactobacillus Acidophilus 1 tab 12/29/19 10:00 01/07/20 09:50 Bacid - PO 1 tab DAILY [facility]IEL Administration Methylprednisolone Sodium Succinate 50 mg 12/28/19 22:00 01/07/20 09:46 Solu-Medrol - IVPUSH 50 mg BID [facility]IEL Administration Metoprolol Tartrate 5 mg 12/29/19 17:46 01/02/20 12:59 Lopressor Injection - IVPUSH 5 mg Q4H PRN Administration TACHYCARDIA Pantoprazole Sodium 40 mg 12/29/19 10:00 01/07/20 09:50 Protonix - PO 40 mg DAILY [facility]IEL Administration Zinc Sulfate 220 mg 12/29/19 10:00 01/07/20 09:50 Orazinc - PO 220 mg DAILY DARIEL Administration ASSESSMENT/PLAN: 44 y/o female PMH Hodgkins' lymphoma s/p radiation and stem cell transplant ( 2011), appendectomy, cholecystectomy, anxiety, who presents with acute hypoxic respiratory failure 2/2 to CoVid-19 infection. Failed titration to hi-flow this morning. # Acute hypoxic respiratory failure 2/2 Covid-19 PNA - CoVid-19 + - QTC 450 - Saturating at 90% on CPAP - Solumedrol 50 BID, lovenox 90 BID - Albuterol inhaler - Educated pt on utility of laying lateral decubitus and prone if possible - Cont. to monitor inflammatory markers. Today all markers are elevated. - Vitamin C, vitamin D, and zinc - Isolation precautions: Contact, droplet, airborne - Strict hand washing - Consult ID # Sinus tachycardia - Toprol 12.5 mg po qd - Information Technology Associate consult given increased energy expenditure of tachycardia/high CA and demands of mask - Possibly 2/2 volume depletion and/or anxiety - Encourage PO intake with caution to minimize time off of CPAP - Lospressor 5 mg for repeat episodes - Consult cardiology # Anxiety - Alprazolam 0.25 mg BID - Alprazolam 0.25 mg q6h prn - Episodes of anxiety exacerbate hypoxia # FEN - PO, cautious with only brief period of having mask off. F/u messenger floorperson recommendations. - Cont. to monitor - Liquid diet # DVT ppx - Lovenox 90 BID # Disposition - Saturating at 91% on CPAP - Full code Blaine Guerrero MD Visit type - Emergency Visit Emergency Visit: No - New Patient This patient is new to me today: No - Critical Care Critical Care patient: No ATTENDING PHYSICIAN STATEMENT I saw and evaluated the patient. I reviewed the resident's note and discussed the case with the resident. I agree with the resident's findings and plan as documented. SUBJECTIVE: OBJECTIVE: ASSESSMENT AND PLAN:
--- NOTE | 2020-01-07 14:21 | PN ---
Progress Note, Physician Chief Complaint: Events noted Coverage for Dr. Monterroso (+) Dyspnea currently on CPAP History of Present Illness: Patient was seen and examined. Awake and alert. Chart was reviewed Denies chest pain Tachycardia - Current Medication List Current Medications: Active Medications Acetaminophen (Tylenol -) 650 mg PO Q6H PRN PRN Reason: PAIN Albuterol Sulfate (Ventolin Hfa Inhaler -) 2 puff IH Q4H PRN PRN Reason: SHORT OF BREATH/WHEEZING Alprazolam (Xanax -) 0.25 mg PO BID [facility] Last Admin: 01/07/20 09:32 Dose: Not Given Documented by: Ascorbic Acid (Vitamin C -) 500 mg PO DAILY [facility] Last Admin: 01/07/20 09:50 Dose: 500 mg Documented by: Cholecalciferol (Vitamin D3 -) 1,000 unit PO DAILY [facility] Last Admin: 01/07/20 09:51 Dose: 1,000 unit Documented by: Enoxaparin Sodium (Lovenox -) 90 mg SQ BID [facility] Last Admin: 01/07/20 09:49 Dose: 90 mg Documented by: Lactobacillus Acidophilus (Bacid -) 1 tab PO DAILY [facility] Last Admin: 01/07/20 09:50 Dose: 1 tab Documented by: Methylprednisolone Sodium Succinate (Solu-Medrol -) 50 mg IVPUSH BID [facility] Last Admin: 01/07/20 09:46 Dose: 50 mg Documented by: Metoprolol Tartrate (Lopressor Injection -) 5 mg IVPUSH Q4H PRN PRN Reason: TACHYCARDIA Last Admin: 01/02/20 12:59 Dose: 5 mg Documented by: Pantoprazole Sodium (Protonix -) 40 mg PO DAILY [facility] Last Admin: 01/07/20 09:50 Dose: 40 mg Documented by: Zinc Sulfate (Orazinc -) 220 mg PO DAILY [facility] Last Admin: 01/07/20 09:50 Dose: 220 mg Documented by: - Objective Vital Signs: Vital Signs Temperature 98.3 F 01/07/20 10:00 Pulse Rate 122 H 01/07/20 10:00 Respiratory Rate 30 H 01/07/20 10:00 Blood Pressure 132/72 01/07/20 10:00 O2 Sat by Pulse Oximetry (%) 87 L 01/07/20 09:22 Neck: Yes: Supple Cardiovascular: Yes: Tachycardia, S1, S2 Respiratory: Yes: Diminished, On BiPap, SOB Gastrointestinal: Yes: Normal Bowel Sounds, Soft. No: Tenderness Edema: No Additional Findings/Remarks: - Review of Systems Constitutional: denies: Chills, Fever Cardiovascular: reports: Shortness of Breath. denies: Chest Pain, Palpitations Respiratory: reports: SOB, SOB on Exertion. (+) Cough Gastrointestinal: denies: Abdominal Pain, Constipation, Diarrhea, Melena, Nausea, Rectal Bleeding, Vomiting Musculoskeletal: denies: Back Pain, Joint Pain Neurological: denies: Dizziness, Headache, Seizure, Syncope Labs: CBC, BMP 01/07/20 05:55 01/07/20 05:55 Problem List - Problems (1) Acute respiratory failure with hypoxia Code(s): J96.01 - ACUTE RESPIRATORY FAILURE WITH HYPOXIA (2) COVID-19 Code(s): U07.1 - COVID POSITIVE (3) HTN (hypertension) Code(s): I10 - ESSENTIAL (PRIMARY) HYPERTENSION Qualifiers: Hypertension type: essential hypertension Qualified Code(s): I10 - Essential (primary) hypertension (4) NHL (non-Hodgkin's lymphoma) Code(s): C85.90 - NON-HODGKIN LYMPHOMA, UNSPECIFIED, UNSPECIFIED SITE (5) Sinus tachycardia Code(s): R00.0 - TACHYCARDIA, UNSPECIFIED Assessment/Plan 1. Respiratory failure with hypoxia currently on NIPPV 2. (+) COVID 19 - pneumonitis 3. HTN 4. Non Hodgkins Lymphoma in remission 5. Sinus tachycardia due to above 6. Leukocytosis, abnormal LFT, inflammatory markers and D dimer due to COVID PLAN: 1. Steroid taper 2. Metoprolol IV as needed. May use PO beta brad if clinically needed 3. Lovenox 90 mg Q12 4. Continue respiratory care as per Pulmonary 5. BIPAP and monitor oxygen saturation Guarded Supportive care. Dr. Monterroso to resume care on Thursday Alberto Carvalho MD
--- NOTE | 2020-01-07 15:05 | PN ---
Teaching Attending Note Name of Resident: An Katz ATTENDING PHYSICIAN STATEMENT I saw and evaluated the patient. I reviewed the resident's note and discussed the case with the resident. I agree with the resident's findings and plan as documented. SUBJECTIVE: no fever or chills. no JAMES , no CP or ABd pain. SOB did not change. Over night she had an episode of anxiety and desaturated. this am she did nottolerate high flow O2 and sat dropped to 70s. OBJECTIVE: NAD, awake, CPAP mask on No JVD. Abd: soft, NT, NS. Ext: No edema no disposable stethoscope for auscultation is available. ASSESSMENT AND PLAN: 44 y/o lady with h/o lymphoma and DVT who presented with myalgia and was found to have acute hypoxic resp failure due to COVID 19 1- COVID 19 infection 2- Acute hypoxic resp failure 3- B/l PNA 4- Anxiety 5- Sinus tachy in setting of anxiety 6- S/p septic shock 7- Transaminitis , due to COVID Plan: - S/p plaquenil. Declined plasma. declined Tocilizumab - will discuss Remdesivir with ID , ? appropriate in light of her LFTS abnormality. - EMR reviewed. It is day 18 of solumedrome 50 BID. will d/w Pulmonary starting taper . - leukocytosis due to steroids. - Inflammatory markers noted - cont CPAP . did not tolerate high flow O2 - cont xanax BID PRN - due to prolonged period of sinus tachy and due to the risk of tachycardia induced cardiomyopathy, will add po toprol - monitor LFTS
[2020-01-07] MEDS: metoPROLOL SUCCINATE 25 MG TAB.SR.24H (FP) PO SCH (17:15)
[2020-01-07] MEDS: methylPREDNISolone NA SUCC 40 MG/1 ML VIAL IVPB SCH (22:03)
[2020-01-08 07:19] LABS: HEMATOCRIT 39.5 % (32.4-45.2); MCH 30.4 pg (25.7-33.7); MEAN CELL VOLUME 92.1 fl (80-96); MEAN PLT VOLUME 7.5 fl (7.5-11.1); PLATELET COUNT 235 K/MM3 (134-434); RBC 4.28 M/mm3 (3.60-5.2); WHITE BLOOD COUNT 17.2 K/mm3 (4.0-10.0)
[2020-01-08 07:37] LABS: ALBUMIN 2.9 g/dl (3.4-5.0); BILIRUBIN,TOTAL 0.6 mg/dL (0.2-1); BLOOD UREA NITROGEN 12.7 mg/dL (7-18); CREATININE 0.6 mg/dL (0.55-1.3); MAGNESIUM 2.2 mg/dL (1.8-2.4); PHOSPHOROUS 3.6 mg/dL (2.5-4.9); POTASSIUM 3.6 mmol/L (3.5-5.1); TOT PROT 6.4 g/dl (6.4-8.2)
[2020-01-08] MEDS: ZINC SULFATE 220 MG CAPSULE (FP) PO SCH (09:40)
[2020-01-08] MEDS: PANTOPRAZOLE 40 MG TABLET PO SCH (09:40)
[2020-01-08] MEDS: ASCORBIC ACID 500 MG TABLET (FP) PO SCH (09:40)
[2020-01-08] MEDS: LACTOBACILLUS ACIDOPHILUS 1 TABLET PO SCH (09:40)
[2020-01-08] MEDS: metoPROLOL SUCCINATE 25 MG TAB.SR.24H (FP) PO SCH (09:40)
[2020-01-08] MEDS: ALPRAZolam 0.25 MG TABLET PO SCH ×2 (09:41→22:38)
[2020-01-08] MEDS: CHOLECALCIFEROL (VIT D3) 1,000 UNIT (25 MCG) TABLET PO SCH (09:41)
[2020-01-08] MEDS: methylPREDNISolone NA SUCC 40 MG/1 ML VIAL IVPB SCH ×2 (09:41→22:38)
[2020-01-08] MEDS: ENOXAPARIN NA (PORCINE) 100 MG/1 ML DISP.SYRIN SQ SCH ×2 (09:43→22:38)
--- NOTE | 2020-01-08 10:30 | PN ---
Progress Note, Physician Chief Complaint: Coverage for Dr. Monterroso History of Present Illness: Dyspnea currently on CPAP, saO2 89%, tachycardic. - Current Medication List Current Medications: Active Medications Acetaminophen (Tylenol -) 650 mg PO Q6H PRN PRN Reason: PAIN Albuterol Sulfate (Ventolin Hfa Inhaler -) 2 puff IH Q4H PRN PRN Reason: SHORT OF BREATH/WHEEZING Alprazolam (Xanax -) 0.25 mg PO BID [facility] Last Admin: 01/08/20 09:41 Dose: 0.25 mg Documented by: Ascorbic Acid (Vitamin C -) 500 mg PO DAILY [facility] Last Admin: 01/08/20 09:40 Dose: 500 mg Documented by: Cholecalciferol (Vitamin D3 -) 1,000 unit PO DAILY [facility] Last Admin: 01/08/20 09:41 Dose: 1,000 unit Documented by: Enoxaparin Sodium (Lovenox -) 90 mg SQ BID [facility] Last Admin: 01/08/20 09:43 Dose: 90 mg Documented by: Lactobacillus Acidophilus (Bacid -) 1 tab PO DAILY [facility] Last Admin: 01/08/20 09:40 Dose: 1 tab Documented by: Methylprednisolone Sodium Succinate (Solu-Medrol -) 35 mg IVPB BID [facility] Last Admin: 01/08/20 09:41 Dose: 35 mg Documented by: Metoprolol Succinate (Toprol Xl -) 12.5 mg PO DAILY [facility] Last Admin: 01/08/20 09:40 Dose: 12.5 mg Documented by: Pantoprazole Sodium (Protonix -) 40 mg PO DAILY [facility] Last Admin: 01/08/20 09:40 Dose: 40 mg Documented by: Zinc Sulfate (Orazinc -) 220 mg PO DAILY [facility] Last Admin: 01/08/20 09:40 Dose: 220 mg Documented by: - Objective Vital Signs: Vital Signs Temperature 97.6 F 01/08/20 06:00 Pulse Rate 120 H 01/08/20 06:00 Respiratory Rate 24 H 01/08/20 06:00 Blood Pressure 122/70 01/08/20 06:00 O2 Sat by Pulse Oximetry (%) 89 L 01/08/20 08:25 Constitutional: Yes: Anxious, Mild Distress Neck: Yes: Supple Cardiovascular: Yes: Tachycardia Respiratory: Yes: Diminished, On BiPap Gastrointestinal: Yes: Soft, Hypoactive Bowel Sounds Edema: No Labs: CBC, BMP 01/08/20 06:50 01/08/20 06:50 INR, PTT INR 1.25 (0.83-1.09) H 12/19/19 13:13 - ....Imaging EKG: Report Reviewed (Tele: ST 132 QTc 42 msec) Assessment/Plan Problem List - Problems (1) Acute respiratory failure with hypoxia Code(s): J96.01 - ACUTE RESPIRATORY FAILURE WITH HYPOXIA (2) COVID-19 Code(s): U07.1 - COVID POSITIVE (3) HTN (hypertension) Code(s): I10 - ESSENTIAL (PRIMARY) HYPERTENSION Qualifiers: Hypertension type: essential hypertension Qualified Code(s): I10 - Essential (primary) hypertension (4) NHL (non-Hodgkin's lymphoma) Code(s): C85.90 - NON-HODGKIN LYMPHOMA, UNSPECIFIED, UNSPECIFIED SITE (5) Sinus tachycardia Code(s): R00.0 - TACHYCARDIA, UNSPECIFIED Assessment/Plan 1. Acute hypoxic respiratory failure currently on NIPPV 2. (+) COVID 19 - pneumonitis 3. HTN 4. Non Hodgkins Lymphoma in remission 5. Sinus tachycardia due to above 6. Leukocytosis, abnormal LFT, inflammatory markers and D dimer due to COVID 7. H/o DVT PLAN: 1. IV steroid taper with GI protection, Zinc, consideration for Remdesivir 2. Metoprolol 12.5 qd 3. Lovenox 90 mg Q12 4. BD as needed 5. BIPAP and titrate FiO2 to keep SpO2 >90% 6. F/u CTA/given elevated d-dimer and h/o dvt's Guarded Supportive care. Dr. Monterroso to resume care on Thursday -
--- NOTE | 2020-01-08 11:41 | PN ---
Progress Note (short form) - Note Progress Note: PULMONARY REMAINS ON AVAPS/100%/RATE 16/ [place] 475ML/EPAP 10/SPO2 90's RELUCTANT TO CHANGE MODE OF VENTILATION HIGH FLOW GIVEN WITH DESATURATION NOTED STEROIDS ARE BEING TAPERED WILL ORDER CTA VSS/AFEBRILE/TACHY Gen: Stable Heart: tachycardic, regular Lung: diminished breath sounds Abd: soft, nontender Ext: no edema Active Medications/labs/images/micro/notes/ABG reviewed INFLAMMATORY MARKERS NOTED ASSESSMENT AND PLAN Acute Hypoxic Respiratory Failure COVID Pneumonia Tachycardia resolved ARDS resolved Septic Shock resolved Elevated LFTs same h/o Hodgkins Lymphoma h/o DVTs - needs oob to chair/incentive spirometry - empiric steroids are being tapered - empiric anticoagulation - titrate FiO2 to keep SpO2 >90% - continue NIPPV - pulse oximetry monitoring - will order CTA/given elevated d-dimer and h/o dvt's R BLANCA CRUZ
--- NOTE | 2020-01-08 12:51 | PN ---
Physical Exam: SUBJECTIVE: Patient seen and examined in the morning. No acute events overnight; patient has no complaints of chest pain or shortness of breath. Discussion ongoing for possible administration of remdesevir. OBJECTIVE: Vital Signs Period Temp Pulse Resp BP Sys/Rivera Pulse Ox Last 24 Hr 97.6 F-98.9 F 108-136 22-26 109-125/63-75 89-92 GENERAL: The patient is awake, alert, and fully oriented, in no acute distress. ENT:CPAP on face. LUNGS: Poor air entry b/l HEART: Tachycardic, regular rhythm ABDOMEN: Soft, nontender, nondistended, normoactive bowel sounds. EXTREMITIES: 2+ pulses, warm, well-perfused, no edema. NEUROLOGICAL: Cranial nerves II through XII grossly intact. PSYCH: Normal mood, normal affect. SKIN: Warm, dry, normal turgor, no rashes or lesions noted Laboratory Results - last 24 hr 01/08/20 01/08/20 01/08/20 06:50 06:50 06:50 WBC 17.2 H RBC 4.28 Hgb 13.0 Hct 39.5 MCV 92.1 MCH 30.4 MCHC 33.0 RDW 16.0 H Plt Count 235 MPV 7.5 D-Dimer 1876 H Sodium 139 Potassium 3.6 Chloride 100 Carbon Dioxide 30 Anion Gap 9 BUN 12.7 Creatinine 0.6 Est GFR (CKD-EPI)AfAm 130.30 Est GFR (CKD-EPI)NonAf 112.42 Random Glucose 69 L Calcium 9.0 Phosphorus 3.6 Magnesium 2.2 Ferritin 587.7 H Total Bilirubin 0.6 AST 51 H ALT 173 H Alkaline Phosphatase 138 H LD Total 464 H C-Reactive Protein 1.9 H Total Protein 6.4 Albumin 2.9 L Active Medications Generic Name Dose Route Start Last Admin Trade Name Freq PRN Reason Stop Dose Admin Acetaminophen 650 mg 12/28/19 15:59 Tylenol - PO Q6H PRN PAIN Albuterol Sulfate 2 puff 12/28/19 15:59 Ventolin Hfa Inhaler - IH Q4H PRN SHORT OF BREATH/WHEEZING Alprazolam 0.25 mg 01/03/20 23:05 01/08/20 09:41 Xanax - PO 0.25 mg BID DARIEL Administration Ascorbic Acid 500 mg 12/30/19 10:00 01/08/20 09:40 Vitamin C - PO 500 mg DAILY DARIEL Administration Cholecalciferol 1,000 unit 12/30/19 10:00 01/08/20 09:41 Vitamin D3 - PO 1,000 unit DAILY DARIEL Administration Enoxaparin Sodium 90 mg 01/06/20 22:00 01/08/20 09:43 Lovenox - SQ 90 mg BID DARIEL Administration Lactobacillus Acidophilus 1 tab 12/29/19 10:00 01/08/20 09:40 Bacid - PO 1 tab DAILY DARIEL Administration Methylprednisolone Sodium Succinate 35 mg 01/07/20 22:00 01/08/20 09:41 Solu-Medrol - IVPB 35 mg BID DARIEL Administration Metoprolol Succinate 12.5 mg 01/07/20 15:15 01/08/20 09:40 Toprol Xl - PO 12.5 mg DAILY DARIEL Administration Pantoprazole Sodium 40 mg 12/29/19 10:00 01/08/20 09:40 Protonix - PO 40 mg DAILY DARIEL Administration Zinc Sulfate 220 mg 12/29/19 10:00 01/08/20 09:40 Orazinc - PO 220 mg DAILY DARIEL Administration ASSESSMENT/PLAN: 44F [facility] Hodgkins' lymphoma s/p radiation and stem cell transplant (2011), appendectomy, cholecystectomy, anxiety, who presents with acute respiratory failure 2/2/ to COVID infection 1) Acute hypoxic respiratory failure 2/2 COVID - Chest CTA ordered. - Patient did not want Plasma therapy. - Patient did not want Tocilizumab therapy. - Possible Remdesevir - High flow trial failed. Will continue to attempt wean from CPAP. - Completed antibiotics - Did not complete plaquenil course due to not wanting medication - Difficulty with proning/laying on lateral decubitus. - Solumedrol 35 BID. Tapering Day 2. - Lovenox 90 BID - zinc - vitamin c - vitamin d - albuterol inhaler - monitor ferritin, LDH, CRP. Trending down. - Continous pulse oximetry - Pulmonology consulted, appreciate recs 2) Hx of anxiety - Continue Xanax Q6H PRN - Xanax BID - Psychiatry consulted, appreciate recs 3) Sinus Tachycardia - Possibly 2/2 volume depletion and/or anxiety - Encourage PO intake with caution to minimize time off of CPAP - Lospressor 5 mg for repeat episodes - Consult cardiology: Holter monitor 2011 for "palpitations" that showed high resting HR: Underlying rhythm sinus; average HR 98 bpm; maximum 150 bpm sinus tach; no arrhythmias. - Added Ensure Clear at breakfast, Ensure Enlive, lunch, ice cream . Also added gingerale with meals and pudding for snacks for additional kcal/fluid intake. DVT: Lovenox BID F: Oral hydration E: Monitor CMP N: Liquid diet Dispo: Monitor on Telemetry. Continue close watch. Visit type - Emergency Visit Emergency Visit: Yes ED Registration Date: 12/19/19 Care time: The patient presented to the Emergency Department on the above date and was hospitalized for further evaluation of their emergent condition. - New Patient This patient is new to me today: No - Critical Care Critical Care patient: No ATTENDING PHYSICIAN STATEMENT I saw and evaluated the patient. I reviewed the resident's note and discussed the case with the resident. I agree with the resident's findings and plan as documented. SUBJECTIVE: OBJECTIVE: ASSESSMENT AND PLAN:
--- NOTE | 2020-01-08 13:34 | PN ---
Teaching Attending Note Name of Resident: Thuy Christie ATTENDING PHYSICIAN STATEMENT I saw and evaluated the patient. I reviewed the resident's note and discussed the case with the resident. I agree with the resident's findings and plan as documented. SUBJECTIVE: No fever or chills . nO JAMES . No CP or Abd pain. loose stool. stable breathing. very anxious . has pain in sacral area OBJECTIVE: NAD, awake, CPAP mask on . looks anxious No JVD. Abd: soft, NT, NS. Ext: No edema CV: RRR, tachy Lungs: bibasilar crackles. good air entry skin in sacral area is intact with no ulcers. upper glutel area with no skin breakdown. limited evaluation to the buttocks area due to limited cooperation . ASSESSMENT AND PLAN: 44 y/o lady with h/o lymphoma and DVT who presented with myalgia and was found to have acute hypoxic resp failure due to COVID 19 1- COVID 19 infection 2- Acute hypoxic resp failure 3- B/l PNA 4- Anxiety 5- Sinus tachy in setting of anxiety 6- S/p septic shock 7- Transaminitis, due to COVID Plan: - S/p plaquenil. Declined plasma. declined Tocilizumab. - Case was dw Dr. Rosas . CTA ordered. - Remdesevir was d/w patient. side effects were discussed. reported efficacy was also discussed. she is thinking about it . d/dw Dr. Nelson. She might be a candidate . will review Criteria for Remdesevir treatemetn when it is available in our hospital - day 19 of steroids. cont taper: 35 mg BID day 2 - cont lovenox - leukocytosis due to steroids. - Inflammatory markers noted - cont CPAP . - cont xanax BID PRN - cont toprol daily - monitor LFTS ( stable )
[2020-01-08] MEDS ORDERED: ALPRAZolam 0.25 MG TABLET PO PRN (14:24)
--- NOTE | 2020-01-09 09:21 | PN ---
Progress Note, Physician History of Present Illness: 44yof with PMhx of lymphoma in remission, ( 8 yr) presented to ED. with SOB and myalgias [id number] and was found to be on 68% on RA on admission as per ED. Notes. DX with COVID PNA Developed septic shock ARDS PMH Acute Hypoxic Respiratory Failure due to ARDS due to COVID19 Pneumonitis Septic Shock Transaminitis Hodgkins lymphoma s/p radiation and stem cell transplant in 2012 - Current Medication List Current Medications: Active Medications Acetaminophen (Tylenol -) 650 mg PO Q6H PRN PRN Reason: PAIN Albuterol Sulfate (Ventolin Hfa Inhaler -) 2 puff IH Q4H PRN PRN Reason: SHORT OF BREATH/WHEEZING Alprazolam (Xanax -) 0.25 mg PO BID [facility] Last Admin: 01/08/20 22:38 Dose: 0.25 mg Documented by: Alprazolam (Xanax -) 0.25 mg PO Q6H PRN PRN Reason: ANXIETY Last Admin: 01/08/20 16:50 Dose: 0.25 mg Documented by: Ascorbic Acid (Vitamin C -) 500 mg PO DAILY [facility] Last Admin: 01/08/20 09:40 Dose: 500 mg Documented by: Cholecalciferol (Vitamin D3 -) 1,000 unit PO DAILY [facility] Last Admin: 01/08/20 09:41 Dose: 1,000 unit Documented by: Enoxaparin Sodium (Lovenox -) 90 mg SQ BID [facility] Last Admin: 01/08/20 22:38 Dose: 90 mg Documented by: Lactobacillus Acidophilus (Bacid -) 1 tab PO DAILY [facility] Last Admin: 01/08/20 09:40 Dose: 1 tab Documented by: Methylprednisolone Sodium Succinate (Solu-Medrol -) 35 mg IVPB BID [facility] Last Admin: 01/08/20 22:38 Dose: 35 mg Documented by: Metoprolol Succinate (Toprol Xl -) 12.5 mg PO DAILY [facility] Last Admin: 01/08/20 09:40 Dose: 12.5 mg Documented by: Pantoprazole Sodium (Protonix -) 40 mg PO DAILY [facility] Last Admin: 01/08/20 09:40 Dose: 40 mg Documented by: Zinc Sulfate (Orazinc -) 220 mg PO DAILY [facility] Last Admin: 01/08/20 09:40 Dose: 220 mg Documented by: - Objective Vital Signs: Vital Signs Temperature 97.6 F 01/09/20 08:32 Pulse Rate 126 H 01/09/20 08:33 Respiratory Rate 24 H 01/09/20 08:32 Blood Pressure 114/67 01/09/20 08:32 O2 Sat by Pulse Oximetry (%) 86 L 01/09/20 08:33 Eyes: Yes: WNL, Conjunctiva Clear, EOM Intact HENT: Yes: WNL, Atraumatic, Normocephalic Neck: Yes: WNL, Supple, Trachea Midline Cardiovascular: Yes: WNL, Regular Rate and Rhythm Respiratory: Yes: Diminished Gastrointestinal: Yes: WNL, Normal Bowel Sounds Genitourinary: Yes: WNL Musculoskeletal: Yes: WNL Extremities: Yes: WNL Edema: No Integumentary: Yes: WNL Neurological: Yes: WNL, Alert, Oriented ...Motor Strength: WNL Psychiatric: Yes: WNL Labs: INR, PTT INR 1.25 (0.83-1.09) H 12/19/19 13:13 Problem List - Problems (1) Acute respiratory failure with hypoxia Code(s): J96.01 - ACUTE RESPIRATORY FAILURE WITH HYPOXIA (2) COVID-19 Code(s): U07.1 - COVID POSITIVE (3) Suspected COVID-19 virus infection Code(s): R68.89 - OTHER GENERAL SYMPTOMS AND SIGNS (4) Abdominal pain Code(s): R10.9 - UNSPECIFIED ABDOMINAL PAIN Qualifiers: Abdominal location: lower abdomen (5) Arm pain, left Code(s): M79.602 - PAIN IN LEFT ARM (6) Numbness Code(s): R20.0 - ANESTHESIA OF SKIN (7) Postoperative pain Code(s): G89.18 - OTHER ACUTE POSTPROCEDURAL PAIN (8) Sternal pain Code(s): R07.89 - OTHER CHEST PAIN (9) TIA (transient ischemic attack) Code(s): G45.9 - TRANSIENT CEREBRAL ISCHEMIC ATTACK, UNSPECIFIED Assessment/Plan Assessment/Plan 1. Acute hypoxic respiratory failure currently on NIPPV 2. (+) COVID 19 - pneumonitis 3. HTN 4. Non Hodgkins Lymphoma in remission 5. Sinus tachycardia due to above 6. Leukocytosis, abnormal LFT, inflammatory markers and D dimer due to COVID 7. H/o DVT PLAN: 1. IV steroid taper with GI protection, Zinc, consideration for Remdesivir 2. Metoprolol 12.5 qd 3. Lovenox 90 mg Q12 4. BD as needed 5. BIPAP and titrate FiO2 to keep SpO2 >90% 6. F/u CTA/given elevated d-dimer and h/o dvt's
[2020-01-09 09:39] LABS: BASO % 0.6 % (0-2.0); EOS % 3.3 % (0-4.5); HEMATOCRIT 38.1 % (32.4-45.2); HEMOGLOBIN 12.6 GM/dL (10.7-15.3); LYMPH % 9.6 % (8-40); MCH 30.2 pg (25.7-33.7); MEAN CELL VOLUME 91.6 fl (80-96); MONO % 4.9 % (3.8-10.2); NEUT % 81.6 % (42.8-82.8); PLATELET COUNT 258 K/MM3 (134-434); RBC 4.16 M/mm3 (3.60-5.2); RDW 15.9 % (11.6-15.6); WHITE BLOOD COUNT 17.2 K/mm3 (4.0-10.0)
[2020-01-09 10:04] LABS: ALBUMIN 2.9 g/dl (3.4-5.0); BILIRUBIN,TOTAL 0.7 mg/dL (0.2-1); BLOOD UREA NITROGEN 10.2 mg/dL (7-18); CALCIUM 8.9 mg/dL (8.5-10.1); CREATININE 0.6 mg/dL (0.55-1.3); PHOSPHOROUS 3.5 mg/dL (2.5-4.9); POTASSIUM 3.7 mmol/L (3.5-5.1); TOT PROT 6.5 g/dl (6.4-8.2)
[2020-01-09 11:20] LABS: ANISOCYTOSIS 0; MACROCYTOSIS 0; PLATELET ESTIMATE NORMAL
[2020-01-09] MEDS: metoPROLOL SUCCINATE 25 MG TAB.SR.24H (FP) PO SCH (11:27)
[2020-01-09] MEDS: PANTOPRAZOLE 40 MG TABLET PO SCH (11:27)
[2020-01-09] MEDS: CHOLECALCIFEROL (VIT D3) 1,000 UNIT (25 MCG) TABLET PO SCH (11:28)
[2020-01-09] MEDS: ASCORBIC ACID 500 MG TABLET (FP) PO SCH (11:28)
[2020-01-09] MEDS: ENOXAPARIN NA (PORCINE) 100 MG/1 ML DISP.SYRIN SQ SCH ×2 (11:28→22:39)
[2020-01-09] MEDS: LACTOBACILLUS ACIDOPHILUS 1 TABLET PO SCH (11:28)
[2020-01-09] MEDS: ZINC SULFATE 220 MG CAPSULE (FP) PO SCH (11:29)
[2020-01-09] MEDS: methylPREDNISolone NA SUCC 40 MG/1 ML VIAL IVPB SCH ×2 (11:29→22:40)
[2020-01-09] MEDS: ALPRAZolam 0.25 MG TABLET PO SCH ×2 (11:32→23:02)
--- NOTE | 2020-01-09 12:56 | PN ---
Progress Note (short form) - Note Progress Note: PULMONARY REMAINS ON AVAPS/100%/RATE 16/ [place] 475ML/EPAP 12/SPO2 90's/[id number] RELUCTANT TO CHANGE MODE OF VENTILATION HIGH FLOW GIVEN WITH DESATURATION NOTED STEROIDS ARE BEING TAPERED CTA DECLINED VSS/AFEBRILE/TACHY Gen: Stable Heart: tachycardic, regular Lung: diminished breath sounds Abd: soft, nontender Ext: no edema Active Medications/labs/images/micro/notes/ABG reviewed INFLAMMATORY MARKERS NOTED ASSESSMENT AND PLAN Acute Hypoxic Respiratory Failure COVID Pneumonia Tachycardia resolved ARDS resolved Septic Shock resolved Elevated LFTs same h/o Hodgkins Lymphoma h/o DVTs - empiric steroids are being tapered - empiric anticoagulation - titrate FiO2 to keep SpO2 >90% - continue NIPPV - pulse oximetry monitoring - treat anxiety as ordered Gene RIOS MD
--- NOTE | 2020-01-09 16:08 | PN ---
Physical Exam: SUBJECTIVE: Patient seen and examined. She is c/o anxiety and would like something to help her relax. Denies any cp, abd pain, fevers, chills. OBJECTIVE: Vital Signs Period Temp Pulse Resp BP Sys/Rivera Pulse Ox Last 24 Hr 97.6 F-99 F 119-140 19-30 110-138/66-75 84-91 GENERAL: The patient is awake, alert, anxious tahypneic. LUNGS: Breath sounds equal, coarse breath sounds bilaterally. HEART: Regular rate and rhythm, S1, S2 without murmur, rub or gallop. ABDOMEN: Soft, nontender, nondistended. EXTREMITIES: 2+ pulses, warm, well-perfused, no edema. Laboratory Results - last 24 hr 01/09/20 01/09/20 01/09/20 08:30 08:30 08:30 WBC 17.2 H RBC 4.16 Hgb 12.6 Hct 38.1 MCV 91.6 MCH 30.2 MCHC 33.0 RDW 15.9 H Plt Count 258 MPV 8.0 Absolute Neuts (auto) 14.1 H Neutrophils % 81.6 Neutrophils % (Manual) 83.3 H Band Neutrophils % 0.0 Lymphocytes % 9.6 D Lymphocytes % (Manual) 6.9 L D Monocytes % 4.9 Monocytes % (Manual) 0 L D Eosinophils % 3.3 D Eosinophils % (Manual) 6.9 H D Basophils % 0.6 Basophils % (Manual) 1.9 D Myelocytes % (Man) 1 D Promyelocytes % (Man) 0 Blast Cells % (Manual) 0 Nucleated RBC % 0 Metamyelocytes 0 D Hypochromia 0 Platelet Estimate Normal Polychromasia 0 Poikilocytosis 0 Anisocytosis 0 Microcytosis 3+ Macrocytosis 0 D-Dimer 1878 H Sodium 136 Potassium 3.7 Chloride 97 L Carbon Dioxide 32 Anion Gap 7 L BUN 10.2 Creatinine 0.6 Est GFR (CKD-EPI)AfAm 130.30 Est GFR (CKD-EPI)NonAf 112.42 Random Glucose 72 L Calcium 8.9 Phosphorus 3.5 Magnesium 2.0 Ferritin 723.4 H Total Bilirubin 0.7 AST 76 H ALT 225 H Alkaline Phosphatase 157 H LD Total 528 H C-Reactive Protein 8.1 H Total Protein 6.5 Albumin 2.9 L Active Medications Generic Name Dose Route Start Last Admin Trade Name Freq PRN Reason Stop Dose Admin Acetaminophen 650 mg 12/28/19 15:59 Tylenol - PO Q6H PRN PAIN Albuterol Sulfate 2 puff 12/28/19 15:59 Ventolin Hfa Inhaler - IH Q4H PRN SHORT OF BREATH/WHEEZING Alprazolam 0.5 mg 01/09/20 10:20 Xanax - PO Q6H PRN ANXIETY Alprazolam 0.5 mg 01/09/20 10:20 Xanax - PO BID DARIEL Ascorbic Acid 500 mg 12/30/19 10:00 01/09/20 11:28 Vitamin C - PO 500 mg DAILY DARIEL Administration Cholecalciferol 1,000 unit 12/30/19 10:00 01/09/20 11:28 Vitamin D3 - PO 1,000 unit DAILY DARIEL Administration Enoxaparin Sodium 90 mg 01/06/20 22:00 01/09/20 11:28 Lovenox - SQ 90 mg BID DARIEL Administration Lactobacillus Acidophilus 1 tab 12/29/19 10:00 01/09/20 11:28 Bacid - PO 1 tab DAILY DARIEL Administration Methylprednisolone Sodium Succinate 35 mg 01/07/20 22:00 01/09/20 11:29 Solu-Medrol - IVPB 35 mg BID DARIEL Administration Metoprolol Succinate 12.5 mg 01/07/20 15:15 01/09/20 11:27 Toprol Xl - PO 12.5 mg DAILY DARIEL Administration Pantoprazole Sodium 40 mg 12/29/19 10:00 01/09/20 11:27 Protonix - PO 40 mg DAILY DARIEL Administration Zinc Sulfate 220 mg 12/29/19 10:00 01/09/20 11:29 Orazinc - PO 220 mg DAILY DARIEL Administration ASSESSMENT/PLAN: 44F [facility] Hodgkins' lymphoma s/p radiation and stem cell transplant (2011), appendectomy, cholecystectomy, anxiety, who presents with acute respiratory failure 2/2/ to COVID infection 1) Acute hypoxic respiratory failure 2/2 COVID - Chest CTA ordered. - pt refused Plasma therapy. - Patient agreeable to Tocilizumab therapy, will s/w ID regarding initiation - High flow trial failed. Will continue to attempt wean from CPAP. - s/p antibiotics - Solumedrol 35 BID. Tapering Day 3. - Lovenox 90 BID - zinc, vitamin c, vitamin d - albuterol inhaler - monitor ferritin, LDH, CRP. Trending down. - maintain Sao2 >90% on cpap. - Pulmonology consulted, appreciate recs 2) Hx of anxiety - increased Xanax to 0.5 Q6H PRN - Xanax 0.5 BID - Psychiatry consulted, appreciate recs 3) Sinus Tachycardia - Possibly 2/2 anxiety - metoprolol 12.5 daily - Consulted cardiology: Holter monitor 2011 for "palpitations" that showed high resting HR: Underlying rhythm sinus; average HR 98 bpm; maximum 150 bpm sinus tach; no arrhythmias. DVT: Lovenox BID F: Oral hydration E: Monitor CMP N: full liquid diet Dispo: Monitor on Telemetry. Continue close watch. Visit type - Emergency Visit Emergency Visit: Yes ED Registration Date: 12/19/19 Care time: The patient presented to the Emergency Department on the above date and was hospitalized for further evaluation of their emergent condition. - New Patient This patient is new to me today: Yes Date on this admission: 01/09/20 - Critical Care Critical Care patient: No - Discharge Referral Referred to [facility] Med P.C.: No ATTENDING PHYSICIAN STATEMENT I saw and evaluated the patient. I reviewed the resident's note and discussed the case with the resident. I agree with the resident's findings and plan as documented. SUBJECTIVE: OBJECTIVE: ASSESSMENT AND PLAN:
[2020-01-09] MEDS ORDERED: POLYETHYLENE GLYCOL 3350 119 GM BTL PO ONE (17:43)
[2020-01-09] MEDS ORDERED: POLYETHYLENE GLYCOL 3350 119 GM BTL PO PRN (17:43)
--- NOTE | 2020-01-09 17:46 | PN ---
Teaching Attending Note Name of Resident: Asa Trevino ATTENDING PHYSICIAN STATEMENT I saw and evaluated the patient. I reviewed the resident's note and discussed the case with the resident. I agree with the resident's findings and plan as documented. SUBJECTIVE: she denies any fever or chills. SOB is stable. anxious. no N/V. no JAMES . cons tipated OBJECTIVE: NAD, awake, CPAP mask on . looks anxious No JVD. Abd: soft, NT, NS. Ext: No edema CV: RRR, tachy Lungs: bibasilar crackles. good air entry skin in sacral area is intact with no ulcers. upper glutel area with no skin breakdown. limited evaluation to the buttocks area due to limited cooperation . ASSESSMENT AND PLAN: 44 y/o lady with h/o lymphoma and DVT who presented with myalgia and was found to have acute hypoxic resp failure due to COVID 19 1- COVID 19 infection 2- Acute hypoxic resp failure 3- B/l PNA 4- Anxiety 5- Sinus tachy in setting of anxiety 6- S/p septic shock 7- Transaminitis, due to COVID Plan: - S/p plaquenil. Declined plasma. - She has declined tocilizumab inpast. Now s agrees. will d/w ID as her inflammatory markers are going up. awaiting call back - declined CTA - day 20 of steroids. cont taper: 35 mg BID day 3. will decrease dose in am to 35 daily. - cont lovenox - leukocytosis due to steroids. - cont CPAP . - increase xanax frequency. - psych consult pending - cont toprol daily. - monitor LFTS ( worse ) HLOC
[2020-01-09] MEDS ORDERED: SENNOSIDES/DOCUSATE COMBO (SENNA PLUS) TABLET (UD) PO SCH (22:00)
[2020-01-10 06:49] LABS: BASO % 0.3 % (0-2.0); EOS % 0.1 % (0-4.5); HEMATOCRIT 36.8 % (32.4-45.2); HEMOGLOBIN 12.4 GM/dL (10.7-15.3); LYMPH % 4.4 % (8-40); MCH 30.7 pg (25.7-33.7); MCHC 33.6 g/dl (32.0-36.0); MEAN CELL VOLUME 91.3 fl (80-96); MEAN PLT VOLUME 8.1 fl (7.5-11.1); MONO % 2.2 % (3.8-10.2); PLATELET COUNT 231 K/MM3 (134-434); RBC 4.03 M/mm3 (3.60-5.2); RDW 16.1 % (11.6-15.6); WHITE BLOOD COUNT 15.2 K/mm3 (4.0-10.0)
[2020-01-10 08:32] LABS: ANISOCYTOSIS 0; MACROCYTOSIS 0; PLATELET ESTIMATE NORMAL
[2020-01-10 09:13] LABS: ALBUMIN 2.9 g/dl (3.4-5.0); BILIRUBIN,TOTAL 0.6 mg/dL (0.2-1); BLOOD UREA NITROGEN 9.8 mg/dL (7-18); CALCIUM 9.2 mg/dL (8.5-10.1); CREATININE 0.5 mg/dL (0.55-1.3); PHOSPHOROUS 4.4 mg/dL (2.5-4.9); POTASSIUM 4.4 mmol/L (3.5-5.1); TOT PROT 6.7 g/dl (6.4-8.2)
[2020-01-10] MEDS: ASCORBIC ACID 500 MG TABLET (FP) PO SCH (10:20)
[2020-01-10] MEDS: methylPREDNISolone NA SUCC 40 MG/1 ML VIAL IVPUSH SCH (10:20)
[2020-01-10] MEDS: ENOXAPARIN NA (PORCINE) 100 MG/1 ML DISP.SYRIN SQ SCH ×2 (10:20→22:09)
[2020-01-10] MEDS: metoPROLOL SUCCINATE 25 MG TAB.SR.24H (FP) PO SCH (10:20)
[2020-01-10] MEDS: CHOLECALCIFEROL (VIT D3) 1,000 UNIT (25 MCG) TABLET PO SCH (10:20)
[2020-01-10] MEDS: PANTOPRAZOLE 40 MG TABLET PO SCH (10:20)
[2020-01-10] MEDS: ZINC SULFATE 220 MG CAPSULE (FP) PO SCH (10:20)
[2020-01-10] MEDS: LACTOBACILLUS ACIDOPHILUS 1 TABLET PO SCH (10:20)
[2020-01-10] MEDS: ALPRAZolam 0.25 MG TABLET PO SCH ×3 (11:09→22:21)
--- NOTE | 2020-01-10 12:22 | PN ---
Physical Exam: SUBJECTIVE: Patient seen and examined. No acute events overnight. Pt is not anxious anymore states she feels better. She is mildly tachypneic but states she always "breaths fast". Denies, cp, sob, abd pain, f/c, n/v/d. OBJECTIVE: Vital Signs Period Temp Pulse Resp BP Sys/Rivera Pulse Ox Last 24 Hr 97.7 F-98.5 F 116-140 18-22 107-138/64-82 88-94 GENERAL: The patient is awake, alert, and fully oriented, in no acute distress. NECK: Trachea midline, full range of motion, supple. LUNGS: Breath sounds equal, clear to auscultation bilaterally, no wheezes, no crackles, no accessory muscle use. HEART: Regular rate and rhythm, S1, S2 without murmur, rub or gallop. ABDOMEN: Soft, nontender, nondistended. EXTREMITIES: 2+ pulses, warm, well-perfused, no edema. Laboratory Results - last 24 hr 01/10/20 01/10/20 01/10/20 06:06 08:00 08:00 WBC 15.2 H RBC 4.03 Hgb 12.4 Hct 36.8 MCV 91.3 MCH 30.7 MCHC 33.6 RDW 16.1 H Plt Count 231 MPV 8.1 Absolute Neuts (auto) 14.1 H Neutrophils % 93.0 H Neutrophils % (Manual) 88.0 H Band Neutrophils % 1.0 Lymphocytes % 4.4 L D Lymphocytes % (Manual) 7.0 L Monocytes % 2.2 L Monocytes % (Manual) 4 D Eosinophils % 0.1 D Eosinophils % (Manual) 0.0 D Basophils % 0.3 Basophils % (Manual) 0.0 Myelocytes % (Man) 0 D Promyelocytes % (Man) 0 Blast Cells % (Manual) 0 Nucleated RBC % 0 Metamyelocytes 0 Hypochromia 0 Platelet Estimate Normal Polychromasia 1+ Poikilocytosis 0 Anisocytosis 0 Microcytosis 0 Macrocytosis 0 D-Dimer 1211 H Sodium 135 L Potassium 4.4 Chloride 98 Carbon Dioxide 30 Anion Gap 7 L BUN 9.8 Creatinine 0.5 L Est GFR (CKD-EPI)AfAm 138.36 Est GFR (CKD-EPI)NonAf 119.38 Random Glucose 107 H Calcium 9.2 Phosphorus 4.4 Magnesium 2.0 Ferritin 792.1 H Total Bilirubin 0.6 AST 77 H ALT 258 H Alkaline Phosphatase 165 H LD Total 538 H C-Reactive Protein 11.7 H Total Protein 6.7 Albumin 2.9 L Active Medications Generic Name Dose Route Start Last Admin Trade Name Freq PRN Reason Stop Dose Admin Acetaminophen 650 mg 12/28/19 15:59 Tylenol - PO Q6H PRN PAIN Albuterol Sulfate 2 puff 12/28/19 15:59 Ventolin Hfa Inhaler - IH Q4H PRN SHORT OF BREATH/WHEEZING Alprazolam 0.5 mg 01/09/20 10:20 Xanax - PO Q6H PRN ANXIETY Alprazolam 0.5 mg 01/09/20 10:20 01/10/20 11:09 Xanax - PO Not Given BID DARIEL Ascorbic Acid 500 mg 12/30/19 10:00 01/10/20 10:20 Vitamin C - PO 500 mg DAILY DARIEL Administration Cholecalciferol 1,000 unit 12/30/19 10:00 01/10/20 10:20 Vitamin D3 - PO 1,000 unit DAILY DARIEL Administration Enoxaparin Sodium 90 mg 01/06/20 22:00 01/10/20 10:20 Lovenox - SQ 90 mg BID DARIEL Administration Lactobacillus Acidophilus 1 tab 12/29/19 10:00 01/10/20 10:20 Bacid - PO 1 tab DAILY DARIEL Administration Methylprednisolone Sodium Succinate 35 mg 01/10/20 10:00 01/10/20 10:20 Solu-Medrol - IVPUSH 35 mg DAILY DARIEL Administration Metoprolol Succinate 12.5 mg 01/07/20 15:15 01/10/20 10:20 Toprol Xl - PO 12.5 mg DAILY DARIEL Administration Pantoprazole Sodium 40 mg 12/29/19 10:00 01/10/20 10:20 Protonix - PO 40 mg DAILY DARIEL Administration Polyethylene Glycol 17 gm 01/09/20 17:43 Miralax (For Daily Use) - PO Q24H PRN CONSTIPATION Senna/Docusate Sodium 2 tablet 01/09/20 22:00 01/09/20 23:02 Pericolace - PO 01/10/20 17:44 Not Given HS [facility] Tocilizumab 720 mg 01/10/20 13:00 Actemra IVPB DAILY DARIEL Zinc Sulfate 220 mg 12/29/19 10:00 01/10/20 10:20 Orazinc - PO 220 mg DAILY DARIEL Administration ASSESSMENT/PLAN: 44F PMH Hodgkins' lymphoma s/p radiation and stem cell transplant (2011), appendectomy, cholecystectomy, anxiety, who presents with acute respiratory failure 2/2/ to COVID infection 1) Acute hypoxic respiratory failure 2/2 COVID - Chest CTA ordered. - pt refused Plasma therapy. - Patient agreeable to Tocilizumab therapy, will s/w ID regarding initiation, started on 720 tocilizumab after speaking with ID (Dr. Anderson). - Will continue to attempt wean from CPAP. - s/p abx - Solumedrol 35 daily. Tapering Day 4. - Lovenox 90 BID - zinc, vitamin c, vitamin d - albuterol inhaler - monitor ferritin, LDH, CRP daily. - maintain Sao2 >90% on cpap. Pt satting 85% on 100% FiO2 CPAP. - Pulmonology consulted, appreciate recs 2) Hx of anxiety - Xanax 0.5 Q6H PRN - Xanax 0.5 BID - Psychiatry consulted, appreciate recs 3) Sinus Tachycardia - Possibly 2/2 anxiety - metoprolol 12.5 daily increased to 25 daily - Consulted cardiology: Holter monitor 2011 for "palpitations" that showed high resting HR: Underlying rhythm sinus; average HR 98 bpm; maximum 150 bpm sinus tach; no arrhythmias. - cannot rule out PE given BIPAP not being compatible with CT machine to undergo CTA and cannot get reliable date from a VQ scan given pt does not have a a normal cxr. DVT: Lovenox BID F: Oral hydration E: Monitor CMP N: full liquid diet Dispo: Monitor on Telemetry. Continue close watch. Visit type - Emergency Visit Emergency Visit: Yes ED Registration Date: 12/19/19 Care time: The patient presented to the Emergency Department on the above date and was hospitalized for further evaluation of their emergent condition. - New Patient This patient is new to me today: No - Critical Care Critical Care patient: No - Discharge Referral Referred to [facility] Med [facility].C[facility] No ATTENDING PHYSICIAN STATEMENT I saw and evaluated the patient. I reviewed the resident's note and discussed the case with the resident. I agree with the resident's findings and plan as documented. SUBJECTIVE: OBJECTIVE: ASSESSMENT AND PLAN:
--- NOTE | 2020-01-10 12:42 | PN ---
Progress Note (short form) - Note Progress Note: PULMONARY REMAINS ON AVAPS/100%/RATE 16/ [place] 475ML/EPAP 12/SPO2 90's/[id number] RELUCTANT TO CHANGE MODE OF VENTILATION STEROIDS ARE BEING TAPERED CTA DECLINED CXR :IMPROVED AERATION VSS/AFEBRILE/TACHY Gen: Stable Heart: tachycardic, regular Lung: diminished breath sounds Abd: soft, nontender Ext: no edema Active Medications/labs/images/micro/notes/ABG reviewed INFLAMMATORY MARKERS NOTED ASSESSMENT AND PLAN Acute Hypoxic Respiratory Failure COVID Pneumonia Tachycardia resolved ARDS resolved Septic Shock resolved Elevated LFTs same h/o Hodgkins Lymphoma h/o DVTs - empiric steroids are being tapered - empiric anticoagulation - titrate FiO2 to keep SpO2 >90% - continue NIPPV - pulse oximetry monitoring - treat anxiety as ordered Gene RIOS MD
[2020-01-10] MEDS ORDERED: TOCILIZUMAB (ACTEMRA) 400 MG/20 ML VIAL IVPB ONE (13:00)
[2020-01-10] MEDS ORDERED: TOCILIZUMAB (ACTEMRA) 400 MG/20 ML VIAL IVPB SCH (13:00)
--- NOTE | 2020-01-10 13:21 | CON.PSY ---
Psychiatry Consult Chief Complaint: 44 Surjit old Female [id number] with COVID 19 seen for Psych eval. Patient has been here for about 20 days, Recovering from COVID but staff report t5hat she is refusing some Meds.. No treports of any self dmaging behaviour..Patient is able to converse and is able to comprehend. Symptoms: reports: Anxiety - Previous Psychiatric Treatment Outpatient: None Inpatient: None - Previous Substance Abuse Treatment Outpatient: None Inpatient: None - Current Medications Current Medications: Active Medications Acetaminophen (Tylenol -) 650 mg PO Q6H PRN PRN Reason: PAIN Albuterol Sulfate (Ventolin Hfa Inhaler -) 2 puff IH Q4H PRN PRN Reason: SHORT OF BREATH/WHEEZING Alprazolam (Xanax -) 0.5 mg PO Q6H PRN PRN Reason: ANXIETY Alprazolam (Xanax -) 0.5 mg PO BID [facility] Last Admin: 01/10/20 11:09 Dose: Not Given Documented by: Ascorbic Acid (Vitamin C -) 500 mg PO DAILY [facility] Last Admin: 01/10/20 10:20 Dose: 500 mg Documented by: Cholecalciferol (Vitamin D3 -) 1,000 unit PO DAILY [facility] Last Admin: 01/10/20 10:20 Dose: 1,000 unit Documented by: Enoxaparin Sodium (Lovenox -) 90 mg SQ BID [facility] Last Admin: 01/10/20 10:20 Dose: 90 mg Documented by: Lactobacillus Acidophilus (Bacid -) 1 tab PO DAILY [facility] Last Admin: 01/10/20 10:20 Dose: 1 tab Documented by: Methylprednisolone Sodium Succinate (Solu-Medrol -) 35 mg IVPUSH DAILY [facility] Last Admin: 01/10/20 10:20 Dose: 35 mg Documented by: Metoprolol Succinate (Toprol Xl -) 12.5 mg PO DAILY [facility] Last Admin: 01/10/20 10:20 Dose: 12.5 mg Documented by: Pantoprazole Sodium (Protonix -) 40 mg PO DAILY [facility] Last Admin: 01/10/20 10:20 Dose: 40 mg Documented by: Polyethylene Glycol (Miralax (For Daily Use) -) 17 gm PO Q24H PRN PRN Reason: CONSTIPATION Senna/Docusate Sodium (Pericolace -) 2 tablet PO [facility] Stop: 01/10/20 17:44 Last Admin: 01/09/20 23:02 Dose: Not Given Documented by: Tocilizumab (Actemra) 720 mg IVPB ONCE ONE Stop: 01/10/20 13:01 Zinc Sulfate (Orazinc -) 220 mg PO DAILY [facility] Last Admin: 01/10/20 10:20 Dose: 220 mg Documented by: - Allergies Allergies: Allergies Allergy/AdvReac Type Severity Reaction Status Date / Time No Known Allergies Allergy Verified 05/21/18 13:03 - Current Living Status Usual Living Arrangement: Alone - Current Mental Status Evaluation Appearance: Well Groomed Attitude: Guarded - Affect Affect: Constrictive Appropriateness: Appropriate to Content - Mood Mood: Anxious - Speech/Language Expressive: Coherent - Psychomotor Activity Psychomotor Activity: Normal - Thought Process Thought Process: Intact - Thought Content Hallucinations: Absent Delusions: Absent - Self Perception Self Perception: No Impairment - Cognition Attention: Alert Orientation: Time Memory, Immediate Recall: Intact Memory, Short Term: 3/3 Memory, Remote with Promptin/3 - Concentration Serial Sevens Intact: Yes Simple Calculations Intact: Yes - Abstraction Proverb Interpretation: Intact Judgement: Intact - Insight Insight: Intact - Impulse Control Impulse Control: Minimally Impaired - Suicidal Ideation Suicidal Ideation: No - Homicidal Ideation Homicidal Ideation: No Assessment/Plan 1) Continue with Xanax PRN for anxiety. 2) Patient has the Mental capacity to make decisions at this 3) No clinical depression.
[2020-01-10] MEDS ORDERED: SODIUM CHLORIDE IVPB ONE (14:00)
[2020-01-10] MEDS ORDERED: TOCILIZUMAB IVPB ONE (14:00)
--- NOTE | 2020-01-10 14:17 | PN ---
Teaching Attending Note Name of Resident: Asa Trevino ATTENDING PHYSICIAN STATEMENT I saw and evaluated the patient. I reviewed the resident's note and discussed the case with the resident. I agree with the resident's findings and plan as documented. SUBJECTIVE: patient is 85% on Cpap will give IL-6 inhibitor today. OBJECTIVE: Vital Signs Temperature 97.7 F 01/10/20 10:00 Pulse Rate 122 H 01/10/20 10:00 Respiratory Rate 22 H 01/10/20 10:00 Blood Pressure 123/82 01/10/20 10:00 O2 Sat by Pulse Oximetry (%) 93 L 01/10/20 09:00 PE: per resident's note CBCD WBC 15.2 K/mm3 (4.0-10.0) H 01/10/20 06:06 RBC 4.03 M/mm3 (3.60-5.2) 01/10/20 06:06 Hgb 12.4 GM/dL (10.7-15.3) 01/10/20 06:06 Hct 36.8 % (32.4-45.2) 01/10/20 06:06 MCV 91.3 fl (80-96) 01/10/20 06:06 MCHC 33.6 g/dl (32.0-36.0) 01/10/20 06:06 RDW 16.1 % (11.6-15.6) H 01/10/20 06:06 Plt Count 231 K/MM3 (134-434) 01/10/20 06:06 MPV 8.1 fl (7.5-11.1) 01/10/20 06:06 CMP Sodium 135 mmol/L (136-145) L 01/10/20 08:00 Potassium 4.4 mmol/L (3.5-5.1) 01/10/20 08:00 Chloride 98 mmol/L (98-107) 01/10/20 08:00 Carbon Dioxide 30 mmol/L (21-32) 01/10/20 08:00 Anion Gap 7 MMOL/L (8-16) L 01/10/20 08:00 BUN 9.8 mg/dL (7-18) 01/10/20 08:00 Creatinine 0.5 mg/dL (0.55-1.3) L 01/10/20 08:00 Random Glucose 107 mg/dL (74-106) H 01/10/20 08:00 Calcium 9.2 mg/dL (8.5-10.1) 01/10/20 08:00 Total Bilirubin 0.6 mg/dL (0.2-1) 01/10/20 08:00 AST 77 U/L (15-37) H 01/10/20 08:00 ALT 258 U/L (13-61) H 01/10/20 08:00 Alkaline Phosphatase 165 U/L (45-117) H 01/10/20 08:00 Total Protein 6.7 g/dl (6.4-8.2) 01/10/20 08:00 Albumin 2.9 g/dl (3.4-5.0) L 01/10/20 08:00 CARDIAC ENZYMES Creatine Kinase 32 U/L (26-192) 12/29/19 07:10 Troponin I < 0.02 ng/ml (0.00-0.05) 12/19/19 13:13 Current Medications Generic Name Dose Route Start Last Admin Trade Name Freq PRN Reason Stop Dose Admin Acetaminophen 650 mg 12/28/19 15:59 Tylenol - PO Q6H PRN PAIN Albuterol Sulfate 2 puff 12/28/19 15:59 Ventolin Hfa Inhaler - IH Q4H PRN SHORT OF BREATH/WHEEZING Alprazolam 0.5 mg 01/09/20 10:20 Xanax - PO Q6H PRN ANXIETY Alprazolam 0.5 mg 01/09/20 10:20 01/10/20 11:09 Xanax - PO Not Given BID [facility] Ascorbic Acid 500 mg 12/30/19 10:00 01/10/20 10:20 Vitamin C - PO 500 mg DAILY DARIEL Administration Cholecalciferol 1,000 unit 12/30/19 10:00 01/10/20 10:20 Vitamin D3 - PO 1,000 unit DAILY [facility] Administration Enoxaparin Sodium 90 mg 01/06/20 22:00 01/10/20 10:20 Lovenox - SQ 90 mg BID DARIEL Administration Tocilizumab 720 mg/ Sodium 100 mls @ 100 mls/hr 01/10/20 14:00 Chloride IVPB 01/10/20 14:59 ONCE ONE Lactobacillus Acidophilus 1 tab 12/29/19 10:00 01/10/20 10:20 Bacid - PO 1 tab DAILY DARIEL Administration Methylprednisolone Sodium Succinate 35 mg 01/10/20 10:00 01/10/20 10:20 Solu-Medrol - IVPUSH 35 mg DAILY DARIEL Administration Metoprolol Succinate 12.5 mg 01/07/20 15:15 01/10/20 10:20 Toprol Xl - PO 12.5 mg DAILY DARIEL Administration Pantoprazole Sodium 40 mg 12/29/19 10:00 01/10/20 10:20 Protonix - PO 40 mg DAILY DARIEL Administration Polyethylene Glycol 17 gm 01/09/20 17:43 Miralax (For Daily Use) - PO Q24H PRN CONSTIPATION Senna/Docusate Sodium 2 tablet 01/09/20 22:00 01/09/20 23:02 Pericolace - PO 01/10/20 17:44 Not Given HS [facility] Zinc Sulfate 220 mg 12/29/19 10:00 01/10/20 10:20 Orazinc - PO 220 mg DAILY DARIEL Administration Home Medications Medication Instructions Recorded Cetirizine HCl 10 mg PO DAILY 12/29/19 traZODone HCL [Trazodone HCl] 50 mg PO HS 12/29/19 Laboratory Tests 01/07/20 01/07/20 01/08/20 05:55 05:55 06:50 D-Dimer 1824 H Ferritin 589.5 H 587.7 H AST 53 H 51 H ALT 165 H 173 H LD Total 476 H 464 H C-Reactive Protein 1.8 H 1.9 H Interleukin 6 01/08/20 01/09/20 01/09/20 06:50 08:30 08:30 D-Dimer 1876 H 1878 H Ferritin 723.4 H AST 76 H ALT 225 H LD Total 528 H C-Reactive Protein 8.1 H Interleukin 6 01/10/20 01/10/20 01/10/20 08:00 08:00 12:55 D-Dimer 1211 H Ferritin 792.1 H AST 77 H ALT 258 H LD Total 538 H C-Reactive Protein 11.7 H Interleukin 6 Pending Laboratory Tests 12/19/19 13:25 COVID-19 ([facility]ORACE) Detected H Laboratory Tests 01/08/20 01/08/20 01/09/20 06:50 06:50 08:30 D-Dimer 1876 H Random Glucose 69 L 72 L Ferritin 587.7 H 723.4 H AST 51 H 76 H ALT 173 H 225 H Alkaline Phosphatase 157 H LD Total 464 H 528 H C-Reactive Protein 1.9 H 8.1 H Interleukin 6 01/09/20 01/10/20 01/10/20 08:30 08:00 08:00 D-Dimer 1878 H 1211 H Random Glucose 107 H Ferritin 792.1 H AST 77 H ALT 258 H Alkaline Phosphatase 165 H LD Total 538 H C-Reactive Protein 11.7 H Interleukin 6 01/10/20 12:55 D-Dimer Random Glucose Ferritin AST ALT Alkaline Phosphatase LD Total C-Reactive Protein Interleukin 6 Pending ASSESSMENT AND PLAN: Patient is a 44yof with PMhx of lymphoma, DVT who presented with myalgia and was found to have acute hypoxic resp failure due to COVID 19 # COVID 19 infection : patient's markers are trending up again ,patient agreed per resident to get Tocilizumab 8mg/kg. will follow, IL-6 in pending but all the markers are trending up. s/p plaquenil. Declined plasma. Resident discussed with ID ,. # Acute hypoxic resp failure due to Covid 19L: cont CPAP , patient declined CTA # B/l PNA due to covid # Anxiety continue xanax # Sinus tachy in setting of anxiety continue anxiolytics on a low dose # S/p septic shock # Transaminitis continues to trend up due to COVID #leukocytosis due to steroids. day 20 of steroids. cont taper: 35 mg BID day 3. will decrease dose in am to 35 daily. DVT px: lovenox 90mg bid
[2020-01-10] MEDS ORDERED: PT OWN MED DRAWER 7, Y5N ONE (15:37)
--- NOTE | 2020-01-10 16:12 | PN ---
Progress Note, Physician Chief Complaint: Pt A&OX3; worries that, without Bipap, her oxygen level drops. History of Present Illness: 44 year old woman with PMH Hodgkins' lymphoma X3 s/p radiation and stem cell transplant in 2012, not on active treatment, in remission x 8 yrs, appendectomy, cholecystectomy, anxiety, obesity, presenting with SOB and myalgias. States that she has felt ill for the past 10 days with myalgias and malaise, but over the past 5 days, she has had progressively worsening SOB and SONG, associated with cough, loss of appetite, and fevers/chills. 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 Sister is a known COVID positive. Pt COVID-19 detected 12/19/2019. - Current Medication List Current Medications: Active Medications Acetaminophen (Tylenol -) 650 mg PO Q6H PRN PRN Reason: PAIN Albuterol Sulfate (Ventolin Hfa Inhaler -) 2 puff IH Q4H PRN PRN Reason: SHORT OF BREATH/WHEEZING Alprazolam (Xanax -) 0.5 mg PO Q6H PRN PRN Reason: ANXIETY Alprazolam (Xanax -) 0.5 mg PO BID [facility] Last Admin: 01/10/20 11:09 Dose: Not Given Documented by: Ascorbic Acid (Vitamin C -) 500 mg PO DAILY [facility] Last Admin: 01/10/20 10:20 Dose: 500 mg Documented by: Cholecalciferol (Vitamin D3 -) 1,000 unit PO DAILY [facility] Last Admin: 01/10/20 10:20 Dose: 1,000 unit Documented by: Enoxaparin Sodium (Lovenox -) 90 mg SQ BID [facility] Last Admin: 01/10/20 10:20 Dose: 90 mg Documented by: Lactobacillus Acidophilus (Bacid -) 1 tab PO DAILY [facility] Last Admin: 01/10/20 10:20 Dose: 1 tab Documented by: Methylprednisolone Sodium Succinate (Solu-Medrol -) 35 mg IVPUSH DAILY [facility] Last Admin: 01/10/20 10:20 Dose: 35 mg Documented by: Metoprolol Succinate (Toprol Xl -) 12.5 mg PO DAILY [facility] Last Admin: 01/10/20 10:20 Dose: 12.5 mg Documented by: Pantoprazole Sodium (Protonix -) 40 mg PO DAILY [facility] Last Admin: 01/10/20 10:20 Dose: 40 mg Documented by: Polyethylene Glycol (Miralax (For Daily Use) -) 17 gm PO Q24H PRN PRN Reason: CONSTIPATION Senna/Docusate Sodium (Pericolace -) 2 tablet PO HS [facility] Stop: 01/10/20 17:44 Last Admin: 01/09/20 23:02 Dose: Not Given Documented by: Zinc Sulfate (Orazinc -) 220 mg PO DAILY [facility] Last Admin: 01/10/20 10:20 Dose: 220 mg Documented by: - Objective Vital Signs: Vital Signs Temperature 97.5 F L 01/10/20 14:00 Pulse Rate 126 H 01/10/20 14:00 Respiratory Rate 20 01/10/20 14:00 Blood Pressure 125/76 01/10/20 14:00 O2 Sat by Pulse Oximetry (%) 93 L 01/10/20 09:00 Constitutional: Yes: Anxious, Obese Eyes: Yes: WNL HENT: Yes: WNL Neck: Yes: WNL Cardiovascular: Yes: Tachycardia, S1, S2 Respiratory: Yes: Diminished Gastrointestinal: Yes: Soft ...Rectal Exam: Yes: Deferred Genitourinary: No: Anuria Breast(s): Yes: WNL Musculoskeletal: Yes: WNL Extremities: Yes: WNL Edema: No Peripheral Pulses WNL: Yes Integumentary: Yes: WNL Neurological: Yes: WNL Psychiatric: Yes: Alert, Oriented, Other (anxiety) Labs: CBC, BMP 01/10/20 06:06 01/10/20 08:00 INR, PTT INR 1.25 (0.83-1.09) H 12/19/19 13:13 Abnormal Lab Results 01/12/20 01/12/20 01/12/20 07:30 07:30 07:30 RDW 15.9 H Eosinophils % 10.5 H Eosinophils % (Manual) 12.4 H Myelocytes % (Man) 5 H D D-Dimer 1447 H Anion Gap 7 L Ferritin 712.0 H AST 68 H ALT 249 H Alkaline Phosphatase 141 H LD Total 457 H C-Reactive Protein 2.2 H Albumin 3.0 L - ....Imaging Chest X-ray: Image Reviewed (01/09/20: better L sided aeration) Problem List - Problems (1) Obesity Code(s): E66.9 - OBESITY, UNSPECIFIED (2) HTN (hypertension) Assessment/Plan: On metoprolol ER. Code(s): I10 - ESSENTIAL (PRIMARY) HYPERTENSION Qualifiers: Hypertension type: essential hypertension Qualified Code(s): I10 - Essential (primary) hypertension (3) NHL (non-Hodgkin's lymphoma) Assessment/Plan: in remission. F/u with PMD, oncologist. Code(s): C85.90 - NON-HODGKIN LYMPHOMA, UNSPECIFIED, UNSPECIFIED SITE (4) Anxiety Code(s): F41.9 - ANXIETY DISORDER, UNSPECIFIED (5) Acute respiratory failure with hypoxia Code(s): J96.01 - ACUTE RESPIRATORY FAILURE WITH HYPOXIA (6) COVID-19 Assessment/Plan: Detected 12/19/19. 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 F/u inflammatory markers. Code(s): U07.1 - COVID POSITIVE (7) Sinus tachycardia Assessment/Plan: multiple etiologies, including PE, anxiety, respiratory distress, CHF, sepsis. HR remains elevated despite anxiolytic and metoprolol (now increased in doses). TSH WNL No DVT by Doppler LEs. Of note: pt had Holter monitor 2011 for "palpitations" that showed high resting HR: Underlying rhythm sinus; average HR 98 bpm; maximum 150 bpm sinus tach; no arrhythmias. Recommend: Continue systemic anticoagulation (on Lovenox). Consider CTA to r/o PE. Code(s): R00.0 - TACHYCARDIA, UNSPECIFIED Assessment/Plan 1. Acute hypoxic respiratory failure currently on NIPPV 2. (+) COVID 19 - pneumonitis 3. HTN 4. Non Hodgkins Lymphoma in remission 5. Sinus tachycardia due to above 6. Leukocytosis, abnormal LFT, inflammatory markers and D dimer due to COVID 7. H/o DVT PLAN: 1. IV steroid taper with GI protection, Zinc, consideration for Remdesivir 2. Metoprolol 12.5 qd 3. Lovenox 90 mg Q12 4. BD as needed 5. BIPAP and titrate FiO2 to keep SpO2 >90% 6. F/u CTA/given elevated d-dimer and h/o dvt's, continued sinus tachycardia (pt apparently initially refused the test; will speak with her again).
[2020-01-10] MEDS ORDERED: metoPROLOL SUCCINATE 25 MG TAB.SR.24H (FP) PO ONE (22:00)
[2020-01-11 07:13] LABS: BASO % 0.5 % (0-2.0); EOS % 7.3 % (0-4.5); HEMATOCRIT 38.5 % (32.4-45.2); LYMPH % 15.4 % (8-40); MCH 30.9 pg (25.7-33.7); MCHC 33.6 g/dl (32.0-36.0); MEAN CELL VOLUME 91.7 fl (80-96); MEAN PLT VOLUME 8.3 fl (7.5-11.1); MONO % 5.9 % (3.8-10.2); NEUT % 70.9 % (42.8-82.8); PLATELET COUNT 250 K/MM3 (134-434); WHITE BLOOD COUNT 12.2 K/mm3 (4.0-10.0)
[2020-01-11 07:54] LABS: ALBUMIN 2.9 g/dl (3.4-5.0); BILIRUBIN,TOTAL 0.5 mg/dL (0.2-1); BLOOD UREA NITROGEN 11.8 mg/dL (7-18); CALCIUM 9.2 mg/dL (8.5-10.1); CREATININE 0.5 mg/dL (0.55-1.3); POTASSIUM 3.9 mmol/L (3.5-5.1); TOT PROT 6.5 g/dl (6.4-8.2)
[2020-01-11] MEDS: ENOXAPARIN NA (PORCINE) 100 MG/1 ML DISP.SYRIN SQ SCH ×2 (09:16→22:03)
[2020-01-11] MEDS: methylPREDNISolone NA SUCC 40 MG/1 ML VIAL IVPUSH SCH (09:16)
[2020-01-11] MEDS: ZINC SULFATE 220 MG CAPSULE (FP) PO SCH (09:16)
[2020-01-11] MEDS: LACTOBACILLUS ACIDOPHILUS 1 TABLET PO SCH (09:16)
[2020-01-11] MEDS: CHOLECALCIFEROL (VIT D3) 1,000 UNIT (25 MCG) TABLET PO SCH (09:16)
[2020-01-11] MEDS: PANTOPRAZOLE 40 MG TABLET PO SCH (09:16)
[2020-01-11] MEDS: ASCORBIC ACID 500 MG TABLET (FP) PO SCH (09:16)
[2020-01-11] MEDS: ALPRAZolam 0.25 MG TABLET PO SCH ×2 (09:16→22:03)
[2020-01-11] MEDS: metoPROLOL SUCCINATE 25 MG TAB.SR.24H (FP) PO SCH (09:16)
[2020-01-11 09:37] LABS: ANISOCYTOSIS 0; MACROCYTOSIS 0; PLATELET ESTIMATE NORMAL
--- NOTE | 2020-01-11 09:45 | PN ---
Teaching Attending Note Name of Resident: Asa Trevino ATTENDING PHYSICIAN STATEMENT I saw and evaluated the patient. I reviewed the resident's note and discussed the case with the resident. I agree with the resident's findings and plan as documented. SUBJECTIVE: Patient s/p IL-6 inhibitor , saturating better. OBJECTIVE: Vital Signs Temperature 98.4 F 01/11/20 09:00 Pulse Rate 116 H 01/11/20 09:00 Respiratory Rate 23 H 01/11/20 09:00 Blood Pressure 116/78 01/11/20 09:00 O2 Sat by Pulse Oximetry (%) 96 01/11/20 05:40 Initial Vital Signs Temp 102.5 F H 12/19/19 13:07 PE:per resident's note CBCD WBC 12.2 K/mm3 (4.0-10.0) H 01/11/20 06:24 RBC 4.20 M/mm3 (3.60-5.2) 01/11/20 06:24 Hgb 13.0 GM/dL (10.7-15.3) 01/11/20 06:24 Hct 38.5 % (32.4-45.2) 01/11/20 06:24 MCV 91.7 fl (80-96) 01/11/20 06:24 MCHC 33.6 g/dl (32.0-36.0) 01/11/20 06:24 RDW 16.0 % (11.6-15.6) H 01/11/20 06:24 Plt Count 250 K/MM3 (134-434) 01/11/20 06:24 MPV 8.3 fl (7.5-11.1) 01/11/20 06:24 CMP Sodium 135 mmol/L (136-145) L 01/11/20 06:24 Potassium 3.9 mmol/L (3.5-5.1) 01/11/20 06:24 Chloride 98 mmol/L (98-107) 01/11/20 06:24 Carbon Dioxide 31 mmol/L (21-32) 01/11/20 06:24 Anion Gap 6 MMOL/L (8-16) L 01/11/20 06:24 BUN 11.8 mg/dL (7-18) 01/11/20 06:24 Creatinine 0.5 mg/dL (0.55-1.3) L 01/11/20 06:24 Random Glucose 73 mg/dL (74-106) L 01/11/20 06:24 Calcium 9.2 mg/dL (8.5-10.1) 01/11/20 06:24 Total Bilirubin 0.5 mg/dL (0.2-1) 01/11/20 06:24 AST 68 U/L (15-37) H 01/11/20 06:24 ALT 245 U/L (13-61) H 01/11/20 06:24 Alkaline Phosphatase 146 U/L (45-117) H 01/11/20 06:24 Total Protein 6.5 g/dl (6.4-8.2) 01/11/20 06:24 Albumin 2.9 g/dl (3.4-5.0) L 01/11/20 06:24 CARDIAC ENZYMES Creatine Kinase 32 U/L (26-192) 12/29/19 07:10 Troponin I < 0.02 ng/ml (0.00-0.05) 12/19/19 13:13 Current Medications Generic Name Dose Route Start Last Admin Trade Name Freq PRN Reason Stop Dose Admin Acetaminophen 650 mg 12/28/19 15:59 Tylenol - PO Q6H PRN PAIN Albuterol Sulfate 2 puff 12/28/19 15:59 Ventolin Hfa Inhaler - IH Q4H PRN SHORT OF BREATH/WHEEZING Alprazolam 0.5 mg 01/09/20 10:20 Xanax - PO Q6H PRN ANXIETY Alprazolam 0.5 mg 01/09/20 10:20 01/11/20 09:16 Xanax - PO 0.25 mg BID DARIEL Administration Ascorbic Acid 500 mg 12/30/19 10:00 01/11/20 09:16 Vitamin C - PO 500 mg DAILY DARIEL Administration Cholecalciferol 1,000 unit 12/30/19 10:00 01/11/20 09:16 Vitamin D3 - PO 1,000 unit DAILY ADRIEL Administration Enoxaparin Sodium 90 mg 01/06/20 22:00 01/11/20 09:16 Lovenox - SQ 90 mg BID DARIEL Administration Lactobacillus Acidophilus 1 tab 12/29/19 10:00 01/11/20 09:16 Bacid - PO 1 tab DAILY DARIEL Administration Methylprednisolone Sodium Succinate 35 mg 01/10/20 10:00 01/11/20 09:16 Solu-Medrol - IVPUSH 35 mg DAILY DARIEL Administration Metoprolol Succinate 25 mg 01/11/20 10:00 01/11/20 09:16 Toprol Xl - PO 25 mg DAILY DARIEL Administration Pantoprazole Sodium 40 mg 12/29/19 10:00 01/11/20 09:16 Protonix - PO 40 mg DAILY DARIEL Administration Polyethylene Glycol 17 gm 01/09/20 17:43 Miralax (For Daily Use) - PO Q24H PRN CONSTIPATION Zinc Sulfate 220 mg 12/29/19 10:00 01/11/20 09:16 Orazinc - PO 220 mg DAILY DARIEL Administration Home Medications Medication Instructions Recorded Cetirizine HCl 10 mg PO DAILY 12/29/19 traZODone HCL [Trazodone HCl] 50 mg PO HS 12/29/19 Laboratory Tests 01/11/20 06:24 Random Glucose 73 L Ferritin 777.3 H AST 68 H ALT 245 H Alkaline Phosphatase 146 H LD Total 500 H C-Reactive Protein 5.6 H Microbiology 12/20/19 10:35 Blood - Peripheral Venous Blood Culture - Final NO GROWTH AFTER 5 DAYS INCUBATION 12/21/19 05:24 Sputum - Expectorated Gram Stain - Final 12/21/19 05:24 Sputum - Expectorated Sputum Culture - Final NORMAL RESPIRATORY CRISSY 12/20/19 22:15 Urine - Urine Clean Catch Legionella Antigen - Final 12/20/19 22:15 Urine - Urine Clean Catch Streptococcus pneumoniae Antigen (M - Final ASSESSMENT AND PLAN: Patient is a 44yof with PMhx of lymphoma, DVT who presented with myalgia and was found to have acute hypoxic resp failure due to COVID 19 # COVID 19 infection : patient's markers are trending down now, s/p Tocilizumab 8mg/kg. improved her saturation , breathing better now, will follow. s/p plaquenil. Declined plasma. Resident discussed with ID ,. # Acute hypoxic resp failure due to Covid 19: cont CPAP , patient declined CTA # B/l PNA due to covid # Anxiety continue xanax # Sinus tachy in setting of anxiety continue anxiolytics on a low dose # S/p septic shock # Transaminitis continues to trend up due to COVID #leukocytosis due to steroids. day 21 of steroids. cont taper: 35 mg BID day 3. will decrease dose in am to 35 daily. DVT px: lovenox 90mg bid solu medrol 35mg iv will continue to follow, will continue to follow markers.
[2020-01-11 10:06] LABS: N-TERMINAL BNP 65.8 pg/ml (5-125)
--- NOTE | 2020-01-11 10:59 | PN ---
Progress Note, Physician History of Present Illness: 44yof with PMhx of lymphoma in remission, ( 8 yr) presented to ED. with SOB and myalgias [id number] and was found to be on 68% on RA on admission as per ED. Notes. DX with COVID PNA Developed septic shock ARDS PMH Acute Hypoxic Respiratory Failure due to ARDS due to COVID19 Pneumonitis Septic Shock Transaminitis Hodgkins lymphoma s/p radiation and stem cell transplant in 2012 - Current Medication List Current Medications: Active Medications Acetaminophen (Tylenol -) 650 mg PO Q6H PRN PRN Reason: PAIN Albuterol Sulfate (Ventolin Hfa Inhaler -) 2 puff IH Q4H PRN PRN Reason: SHORT OF BREATH/WHEEZING Alprazolam (Xanax -) 0.5 mg PO Q6H PRN PRN Reason: ANXIETY Alprazolam (Xanax -) 0.5 mg PO BID [facility] Last Admin: 01/11/20 09:16 Dose: 0.25 mg Documented by: Ascorbic Acid (Vitamin C -) 500 mg PO DAILY [facility] Last Admin: 01/11/20 09:16 Dose: 500 mg Documented by: Cholecalciferol (Vitamin D3 -) 1,000 unit PO DAILY [facility] Last Admin: 01/11/20 09:16 Dose: 1,000 unit Documented by: Enoxaparin Sodium (Lovenox -) 90 mg SQ BID [facility] Last Admin: 01/11/20 09:16 Dose: 90 mg Documented by: Lactobacillus Acidophilus (Bacid -) 1 tab PO DAILY [facility] Last Admin: 01/11/20 09:16 Dose: 1 tab Documented by: Methylprednisolone Sodium Succinate (Solu-Medrol -) 35 mg IVPUSH DAILY [facility] Last Admin: 01/11/20 09:16 Dose: 35 mg Documented by: Metoprolol Succinate (Toprol Xl -) 25 mg PO DAILY [facility] Last Admin: 01/11/20 09:16 Dose: 25 mg Documented by: Pantoprazole Sodium (Protonix -) 40 mg PO DAILY [facility] Last Admin: 01/11/20 09:16 Dose: 40 mg Documented by: Polyethylene Glycol (Miralax (For Daily Use) -) 17 gm PO Q24H PRN PRN Reason: CONSTIPATION Zinc Sulfate (Orazinc -) 220 mg PO DAILY [facility] Last Admin: 01/11/20 09:16 Dose: 220 mg Documented by: - Objective Vital Signs: Vital Signs Temperature 98.4 F 01/11/20 09:00 Pulse Rate 116 H 01/11/20 09:00 Respiratory Rate 23 H 01/11/20 09:00 Blood Pressure 116/78 01/11/20 09:00 O2 Sat by Pulse Oximetry (%) 96 01/11/20 05:40 Eyes: Yes: WNL, Conjunctiva Clear, EOM Intact HENT: Yes: WNL, Atraumatic, Normocephalic Neck: Yes: WNL, Supple, Trachea Midline Cardiovascular: Yes: Tachycardia, S1, S2 Respiratory: Yes: WNL, Regular, CTA Bilaterally Gastrointestinal: Yes: WNL, Normal Bowel Sounds Genitourinary: Yes: WNL Musculoskeletal: Yes: WNL Extremities: Yes: WNL Edema: No Integumentary: Yes: WNL Neurological: Yes: WNL, Alert, Oriented ...Motor Strength: WNL Psychiatric: Yes: WNL Labs: CBC, BMP 01/11/20 06:24 01/11/20 06:24 INR, PTT INR 1.25 (0.83-1.09) H 12/19/19 13:13 Problem List - Problems (1) Acute respiratory failure with hypoxia Code(s): J96.01 - ACUTE RESPIRATORY FAILURE WITH HYPOXIA (2) COVID-19 Code(s): U07.1 - COVID POSITIVE (3) Suspected COVID-19 virus infection Code(s): R68.89 - OTHER GENERAL SYMPTOMS AND SIGNS (4) Abdominal pain Code(s): R10.9 - UNSPECIFIED ABDOMINAL PAIN (5) Arm pain, left Code(s): M79.602 - PAIN IN LEFT ARM (6) Numbness Code(s): R20.0 - ANESTHESIA OF SKIN (7) Postoperative pain Code(s): G89.18 - OTHER ACUTE POSTPROCEDURAL PAIN (8) Sternal pain Code(s): R07.89 - OTHER CHEST PAIN (9) TIA (transient ischemic attack) Code(s): G45.9 - TRANSIENT CEREBRAL ISCHEMIC ATTACK, UNSPECIFIED Assessment/Plan - Problems (1) Obesity Code(s): E66.9 - OBESITY, UNSPECIFIED (2) HTN (hypertension) Assessment/Plan: On metoprolol ER. Code(s): I10 - ESSENTIAL (PRIMARY) HYPERTENSION Qualifiers: Hypertension type: essential hypertension Qualified Code(s): I10 - Essential (primary) hypertension (3) NHL (non-Hodgkin's lymphoma) Assessment/Plan: in remission. F/u with PMD, oncologist. Code(s): C85.90 - NON-HODGKIN LYMPHOMA, UNSPECIFIED, UNSPECIFIED SITE (4) Anxiety Code(s): F41.9 - ANXIETY DISORDER, UNSPECIFIED (5) Acute respiratory failure with hypoxia Code(s): J96.01 - ACUTE RESPIRATORY FAILURE WITH HYPOXIA (6) COVID-19 Assessment/Plan: Detected 12/19/19. 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 F/u inflammatory markers. Code(s): U07.1 - COVID POSITIVE (7) Sinus tachycardia Assessment/Plan: multiple etiologies, including PE, anxiety, respiratory distress, CHF, sepsis. HR remains elevated despite anxiolytic and metoprolol (now increased in doses). TSH WNL No DVT by Doppler LEs. Of note: pt had Holter monitor 2011 for "palpitations" that showed high resting HR: Underlying rhythm sinus; average HR 98 bpm; maximum 150 bpm sinus tach; no arrhythmias. Recommend: Continue systemic anticoagulation (on Lovenox). Consider CTA to r/o PE. Code(s): R00.0 - TACHYCARDIA, UNSPECIFIED
--- NOTE | 2020-01-11 13:21 | PN ---
Progress Note (short form) - Note Progress Note: PULMONARY REMAINS ON AVAPS/100%/RATE 16/ [place] 475ML/EPAP 12/SPO2 90's/[id number] RELUCTANT TO CHANGE MODE OF VENTILATION CTA DECLINED CXR :IMPROVED AERATION VSS/AFEBRILE/TACHY Gen: Stable Heart: tachycardic, regular Lung: diminished breath sounds Abd: soft, nontender Ext: no edema Active Medications/labs/images/micro/notes/ABG reviewed INFLAMMATORY MARKERS NOTED ASSESSMENT AND PLAN Acute Hypoxic Respiratory Failure COVID Pneumonia Tachycardia resolved ARDS resolved Septic Shock resolved Elevated LFTs same h/o Hodgkins Lymphoma h/o DVTs - empiric steroids - empiric anticoagulation - titrate FiO2 to keep SpO2 >90% - continue NIPPV - pulse oximetry monitoring - treat anxiety as ordered Gene RIOS MD
--- NOTE | 2020-01-11 15:26 | PN ---
Physical Exam: SUBJECTIVE: Patient seen and examined. Pt is s/p tocilizumab yesterday with much improvement in SaO2, inflamm markers and symptoms. Pt only took 0.25 of xanax, anxiety improved, tachy improved since increasing BB. OBJECTIVE: Vital Signs Period Temp Pulse Resp BP Sys/Rivera Pulse Ox Last 24 Hr 97.1 F-98.4 F 106-125 16-24 109-136/58-79 91-96 GENERAL: The patient is awake, alert, and fully oriented, in no acute distress. Satting 93% on 100% CPAP. LUNGS: Breath sounds equal, decreased breast sounds b/l HEART: Regular rate and rhythm, S1, S2 without murmur, rub or gallop. ABDOMEN: Soft, nontender, nondistended. EXTREMITIES: 2+ pulses, warm, well-perfused, no edema. Laboratory Results - last 24 hr 01/11/20 01/11/20 06:24 06:24 WBC 12.2 H RBC 4.20 Hgb 13.0 Hct 38.5 MCV 91.7 MCH 30.9 MCHC 33.6 RDW 16.0 H Plt Count 250 MPV 8.3 Absolute Neuts (auto) 8.7 H Neutrophils % 70.9 D Neutrophils % (Manual) 70.0 Band Neutrophils % 0.0 Lymphocytes % 15.4 D Lymphocytes % (Manual) 12.7 D Monocytes % 5.9 D Monocytes % (Manual) 3 L Eosinophils % 7.3 H D Eosinophils % (Manual) 14.6 H D Basophils % 0.5 Basophils % (Manual) 0.0 Myelocytes % (Man) 0 Promyelocytes % (Man) 0 Blast Cells % (Manual) 0 Nucleated RBC % 0 Metamyelocytes 0 Hypochromia 0 Platelet Estimate Normal Polychromasia 0 Poikilocytosis 0 Anisocytosis 0 Microcytosis 0 Macrocytosis 0 Sodium 135 L Potassium 3.9 Chloride 98 Carbon Dioxide 31 Anion Gap 6 L BUN 11.8 Creatinine 0.5 L Est GFR (CKD-EPI)AfAm 138.36 Est GFR (CKD-EPI)NonAf 119.38 Random Glucose 73 L Calcium 9.2 Ferritin 777.3 H Total Bilirubin 0.5 AST 68 H ALT 245 H Alkaline Phosphatase 146 H LD Total 500 H C-Reactive Protein 5.6 H B-Natriuretic Peptide 65.8 Total Protein 6.5 Albumin 2.9 L TSH 2.69 Active Medications Generic Name Dose Route Start Last Admin Trade Name Freq PRN Reason Stop Dose Admin Acetaminophen 650 mg 12/28/19 15:59 Tylenol - PO Q6H PRN PAIN Albuterol Sulfate 2 puff 12/28/19 15:59 Ventolin Hfa Inhaler - IH Q4H PRN SHORT OF BREATH/WHEEZING Alprazolam 0.5 mg 01/09/20 10:20 Xanax - PO Q6H PRN ANXIETY Alprazolam 0.5 mg 01/09/20 10:20 01/11/20 09:16 Xanax - PO 0.25 mg BID DARIEL Administration Ascorbic Acid 500 mg 12/30/19 10:00 01/11/20 09:16 Vitamin C - PO 500 mg DAILY DARIEL Administration Cholecalciferol 1,000 unit 12/30/19 10:00 01/11/20 09:16 Vitamin D3 - PO 1,000 unit DAILY DARIEL Administration Enoxaparin Sodium 90 mg 01/06/20 22:00 01/11/20 09:16 Lovenox - SQ 90 mg BID DARIEL Administration Lactobacillus Acidophilus 1 tab 12/29/19 10:00 01/11/20 09:16 Bacid - PO 1 tab DAILY DARIEL Administration Methylprednisolone Sodium Succinate 35 mg 01/10/20 10:00 01/11/20 09:16 Solu-Medrol - IVPUSH 35 mg DAILY DARIEL Administration Metoprolol Succinate 25 mg 01/11/20 10:00 01/11/20 09:16 Toprol Xl - PO 25 mg DAILY DARIEL Administration Pantoprazole Sodium 40 mg 12/29/19 10:00 01/11/20 09:16 Protonix - PO 40 mg DAILY DARIEL Administration Polyethylene Glycol 17 gm 01/09/20 17:43 01/11/20 11:50 Miralax (For Daily Use) - PO 17 gm Q24H PRN Administration CONSTIPATION Zinc Sulfate 220 mg 12/29/19 10:00 01/11/20 09:16 Orazinc - PO 220 mg DAILY DARIEL Administration ASSESSMENT/PLAN: 44F PMH Hodgkins' lymphoma s/p radiation and stem cell transplant (2011), appendectomy, cholecystectomy, anxiety, who presents with acute respiratory failure 2/2/ to COVID infection 1) Acute hypoxic respiratory failure 2/2 COVID - Chest CTA canceled given refused by pt and incompatible with BIPAP as pt cant lie flat - pt refused Plasma therapy. - Patient agreeable to Tocilizumab therapy, much improved after will continue to monitor pt vitals and inflamm hanna that have improved. - Will continue to attempt wean from CPAP. - s/p abx - Solumedrol 35 daily. Tapering Day 4. - Lovenox 90 BID - zinc, vitamin c, vitamin d - albuterol inhaler - monitor ferritin, LDH, CRP daily, improved today. - maintain Sao2 >90% on cpap. Pt satting 85-> 93% on 100% FiO2 CPAP. - Pulmonology consulted, appreciate recs 2) Hx of anxiety - Xanax 0.5 Q6H PRN, only requiring 0.25 yesterday - Xanax 0.5 BID - Psychiatry consulted, appreciate recs 3) Sinus Tachycardia - Possibly 2/2 anxiety - metoprolol 25 daily - Consulted cardiology: Holter monitor 2011 for "palpitations" that showed high resting HR: Underlying rhythm sinus; average HR 98 bpm; maximum 150 bpm sinus tach; no arrhythmias. - cannot rule out PE given BIPAP not being compatible with CT machine to undergo CTA and cannot get reliable date from a VQ scan given pt does not have a a normal cxr. DVT: Lovenox BID F: Oral hydration E: Monitor CMP N: full liquid diet Dispo: Monitor on Telemetry. Continue close watch. Visit type - Emergency Visit Emergency Visit: Yes ED Registration Date: 12/19/19 Care time: The patient presented to the Emergency Department on the above date and was hospitalized for further evaluation of their emergent condition. - New Patient This patient is new to me today: No - Critical Care Critical Care patient: No - Discharge Referral Referred to [facility] Med P.C.: No ATTENDING PHYSICIAN STATEMENT I saw and evaluated the patient. I reviewed the resident's note and discussed the case with the resident. I agree with the resident's findings and plan as documented. SUBJECTIVE: OBJECTIVE: ASSESSMENT AND PLAN:
[2020-01-12 08:09] LABS: BASO % 1.1 % (0-2.0); EOS % 10.5 % (0-4.5); HEMATOCRIT 39.1 % (32.4-45.2); HEMOGLOBIN 13.2 GM/dL (10.7-15.3); LYMPH % 14.4 % (8-40); MCH 30.9 pg (25.7-33.7); MCHC 33.7 g/dl (32.0-36.0); MEAN CELL VOLUME 91.6 fl (80-96); MEAN PLT VOLUME 7.7 fl (7.5-11.1); MONO % 6.5 % (3.8-10.2); NEUT % 67.5 % (42.8-82.8); PLATELET COUNT 246 K/MM3 (134-434); RBC 4.26 M/mm3 (3.60-5.2); RDW 15.9 % (11.6-15.6); WHITE BLOOD COUNT 9.4 K/mm3 (4.0-10.0)
[2020-01-12 09:25] LABS: BILIRUBIN,TOTAL 0.6 mg/dL (0.2-1); BLOOD UREA NITROGEN 12.6 mg/dL (7-18); CALCIUM 8.9 mg/dL (8.5-10.1); CREATININE 0.6 mg/dL (0.55-1.3); POTASSIUM 4.1 mmol/L (3.5-5.1); TOT PROT 6.5 g/dl (6.4-8.2)
[2020-01-12] MEDS: PANTOPRAZOLE 40 MG TABLET PO SCH (10:18)
[2020-01-12] MEDS: ZINC SULFATE 220 MG CAPSULE (FP) PO SCH (10:19)
[2020-01-12] MEDS: LACTOBACILLUS ACIDOPHILUS 1 TABLET PO SCH (10:19)
[2020-01-12] MEDS: ENOXAPARIN NA (PORCINE) 100 MG/1 ML DISP.SYRIN SQ SCH ×2 (10:19→22:02)
[2020-01-12] MEDS: methylPREDNISolone NA SUCC 40 MG/1 ML VIAL IVPUSH SCH (10:19)
[2020-01-12] MEDS: metoPROLOL SUCCINATE 25 MG TAB.SR.24H (FP) PO SCH (10:19)
[2020-01-12] MEDS: CHOLECALCIFEROL (VIT D3) 1,000 UNIT (25 MCG) TABLET PO SCH (10:20)
[2020-01-12] MEDS: ALPRAZolam 0.25 MG TABLET PO SCH ×2 (10:21→22:45)
[2020-01-12] MEDS: ASCORBIC ACID 500 MG TABLET (FP) PO SCH (10:24)
--- NOTE | 2020-01-12 11:18 | PN ---
Physical Exam: SUBJECTIVE: Patient seen and examined at the bedside. Remains on AVAPS/ 100% FiO2/ Rate 16/ VT 475mL/ EPAP 12/SPo2 90s/ [id number]. Per pulm, pt is reluctant to change mode of ventilation OBJECTIVE: Vital Signs Period Temp Pulse Resp BP Sys/Rivera Pulse Ox Last 24 Hr 97.7 F-98.2 F 108-125 22-25 104-136/50-75 92-95 GENERAL: The patient is awake, alert, and fully oriented, in no acute distress. HEAD: Normal with no signs of trauma. NECK: Trachea midline, full range of motion, supple. LUNGS: Diminised breath sounds bilaterally, no accessory muscle use. HEART: Regular rhythm, tachycardic, S1, S2 ABDOMEN: Soft, nontender, nondistended EXTREMITIES: 2+ pulses, warm, well-perfused, no edema. NEUROLOGICAL: Cranial nerves II through XII grossly intact Laboratory Results - last 24 hr 01/10/20 01/12/20 01/12/20 12:55 07:30 07:30 WBC 9.4 RBC 4.26 Hgb 13.2 Hct 39.1 MCV 91.6 MCH 30.9 MCHC 33.7 RDW 15.9 H Plt Count 246 MPV 7.7 Absolute Neuts (auto) 6.4 Neutrophils % 67.5 Lymphocytes % 14.4 Monocytes % 6.5 Eosinophils % 10.5 H Basophils % 1.1 Nucleated RBC % 0 D-Dimer Sodium 138 Potassium 4.1 Chloride 100 Carbon Dioxide 31 Anion Gap 7 L BUN 12.6 Creatinine 0.6 Est GFR (CKD-EPI)AfAm 130.30 Est GFR (CKD-EPI)NonAf 112.42 Random Glucose 82 Calcium 8.9 Ferritin 712.0 H Total Bilirubin 0.6 AST 68 H ALT 249 H Alkaline Phosphatase 141 H LD Total 457 H C-Reactive Protein 2.2 H Total Protein 6.5 Albumin 3.0 L Interleukin 6 7.2 01/12/20 07:30 WBC RBC Hgb Hct MCV MCH MCHC RDW Plt Count MPV Absolute Neuts (auto) Neutrophils % Lymphocytes % Monocytes % Eosinophils % Basophils % Nucleated RBC % D-Dimer 1447 H Sodium Potassium Chloride Carbon Dioxide Anion Gap BUN Creatinine Est GFR (CKD-EPI)AfAm Est GFR (CKD-EPI)NonAf Random Glucose Calcium Ferritin Total Bilirubin AST ALT Alkaline Phosphatase LD Total C-Reactive Protein Total Protein Albumin Interleukin 6 Active Medications Generic Name Dose Route Start Last Admin Trade Name Freq PRN Reason Stop Dose Admin Acetaminophen 650 mg 12/28/19 15:59 Tylenol - PO Q6H PRN PAIN Albuterol Sulfate 2 puff 12/28/19 15:59 Ventolin Hfa Inhaler - IH Q4H PRN SHORT OF BREATH/WHEEZING Alprazolam 0.5 mg 01/09/20 10:20 Xanax - PO Q6H PRN ANXIETY Alprazolam 0.5 mg 01/09/20 10:20 01/12/20 10:21 Xanax - PO 0.5 mg BID DARIEL Administration Ascorbic Acid 500 mg 12/30/19 10:00 01/12/20 10:24 Vitamin C - PO 500 mg DAILY DARIEL Administration Cholecalciferol 1,000 unit 12/30/19 10:00 01/12/20 10:20 Vitamin D3 - PO 1,000 unit DAILY DARIEL Administration Enoxaparin Sodium 90 mg 01/06/20 22:00 01/12/20 10:19 Lovenox - SQ 90 mg BID DARIEL Administration Lactobacillus Acidophilus 1 tab 12/29/19 10:00 01/12/20 10:19 Bacid - PO 1 tab DAILY DARIEL Administration Metoprolol Succinate 25 mg 01/11/20 10:00 01/12/20 10:19 Toprol Xl - PO 25 mg DAILY DARIEL Administration Pantoprazole Sodium 40 mg 12/29/19 10:00 01/12/20 10:18 Protonix - PO 40 mg DAILY DARIEL Administration Polyethylene Glycol 17 gm 01/09/20 17:43 01/11/20 11:50 Miralax (For Daily Use) - PO 17 gm Q24H PRN Administration CONSTIPATION Zinc Sulfate 220 mg 12/29/19 10:00 01/12/20 10:19 Orazinc - PO 220 mg DAILY DARIEL Administration ASSESSMENT/PLAN: 44F PMH Hodgkins' lymphoma s/p radiation and stem cell transplant (2011), appendectomy, cholecystectomy, anxiety, who presents with acute respiratory failure 2/2/ to COVID infection 1) Acute hypoxic respiratory failure 2/2 COVID - Pt refused chest CTA - pt refused Plasma therapy, will attempt to discuss with patient again today> now states she is amenable to taking it if she does not improve on tilicizumab - s/p abx and tolicizumab - decrease solumedrol to 30 daily. Tapering Day 5. - Lovenox 90 BID until PE r/o - zinc, vitamin c, vitamin d - albuterol inhaler - monitor ferritin, LDH, CRP daily, improving. - maintain Sao2 >90% on cpap. Pt satting 85-> 93% on 100% FiO2 CPAP, wean as appropriate - Pulmonology consulted, Dr. Shepherd, appreciate recs: - F/U echo to r/o covid induced cardiomyopathy - continue empiric steroids - continue empiric anticoagulation - titrate FiO2 to keep SpO2 >90% - continue NIPPV - pulse oximetry monitoring - treat anxiety as ordered 2) Hx of anxiety - Xanax 0.5 Q6H PRN, only requiring 0.25 yesterday - Xanax 0.5 BID - Psychiatry consulted, appreciate recs 3) Sinus Tachycardia - Possibly 2/2 anxiety - metoprolol 12.5 daily - Consulted cardiology, Dr. Vasquez, appreciate recommendations - Holter monitor 2011 for "palpitations" that showed high resting HR: Underlying rhythm sinus; average HR 98 bpm; maximum 150 bpm sinus tach; no arrhythmias. - F/u CTA/given elevated d-dimer and h/o dvt's, continued sinus tachycardia. Pt's sister says pt had some reaction to "contrast" when she had a CT chest at [facility]; will try to obtain records. Reaction possibly due to anxiety and not allergic reaction DVT: Lovenox BID F: Oral hydration E: Monitor CMP N: full liquid diet Dispo: Monitor on Telemetry. Continue close watch. Visit type - Emergency Visit Emergency Visit: Yes ED Registration Date: 12/19/19 Care time: The patient presented to the Emergency Department on the above date and was hospitalized for further evaluation of their emergent condition. - New Patient This patient is new to me today: Yes Date on this admission: 01/12/20 - Critical Care Critical Care patient: No ATTENDING PHYSICIAN STATEMENT I saw and evaluated the patient. I reviewed the resident's note and discussed the case with the resident. I agree with the resident's findings and plan as documented. SUBJECTIVE: OBJECTIVE: ASSESSMENT AND PLAN:
[2020-01-12 12:30] LABS: ANISOCYTOSIS 0; MACROCYTOSIS 0; PLATELET ESTIMATE NORMAL
--- NOTE | 2020-01-12 13:04 | PN ---
Progress Note, Physician Chief Complaint: Pt A&OX3; on BIPAP. she feels all her problems (tachycardia; tachypnea) are due to anxiety and having to be in the [facility] instead of at home. I spoke with her and (by video-telephone) her sister.Pt c/o upset stomach she feels is due to medications. History of Present Illness: 44 year old woman with PMH Hodgkins' lymphoma X3 s/p radiation and stem cell transplant in 2012, not on active treatment, in remission x 8 yrs, appendectomy, cholecystectomy, anxiety, obesity, presenting with SOB and myalgias. States that she has felt ill for the past 10 days with myalgias and malaise, but over the past 5 days, she has had progressively worsening SOB and SONG, associated with cough, loss of appetite, and fevers/chills. 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 Sister is a known COVID positive. Pt COVID-19 detected 12/19/2019. - Current Medication List Current Medications: Active Medications Acetaminophen (Tylenol -) 650 mg PO Q6H PRN PRN Reason: PAIN Albuterol Sulfate (Ventolin Hfa Inhaler -) 2 puff IH Q4H PRN PRN Reason: SHORT OF BREATH/WHEEZING Alprazolam (Xanax -) 0.5 mg PO Q6H PRN PRN Reason: ANXIETY Alprazolam (Xanax -) 0.5 mg PO BID [facility] Last Admin: 01/12/20 10:21 Dose: 0.5 mg Documented by: Ascorbic Acid (Vitamin C -) 500 mg PO DAILY [facility] Last Admin: 01/12/20 10:24 Dose: 500 mg Documented by: Cholecalciferol (Vitamin D3 -) 1,000 unit PO DAILY [facility] Last Admin: 01/12/20 10:20 Dose: 1,000 unit Documented by: Enoxaparin Sodium (Lovenox -) 90 mg SQ BID [facility] Last Admin: 01/12/20 10:19 Dose: 90 mg Documented by: Lactobacillus Acidophilus (Bacid -) 1 tab PO DAILY [facility] Last Admin: 01/12/20 10:19 Dose: 1 tab Documented by: Methylprednisolone Sodium Succinate (Solu-Medrol -) 30 mg IVPUSH DAILY [facility] Metoprolol Succinate (Toprol Xl -) 25 mg PO DAILY [facility] Last Admin: 01/12/20 10:19 Dose: 25 mg Documented by: Pantoprazole Sodium (Protonix -) 40 mg PO DAILY [facility] Last Admin: 01/12/20 10:18 Dose: 40 mg Documented by: Polyethylene Glycol (Miralax (For Daily Use) -) 17 gm PO Q24H PRN PRN Reason: CONSTIPATION Last Admin: 01/11/20 11:50 Dose: 17 gm Documented by: Zinc Sulfate (Orazinc -) 220 mg PO DAILY [facility] Last Admin: 01/12/20 10:19 Dose: 220 mg Documented by: - Objective Vital Signs: Vital Signs Temperature 97.7 F 01/12/20 06:00 Pulse Rate 119 H 01/12/20 06:00 Respiratory Rate 22 H 01/12/20 06:00 Blood Pressure 136/63 01/12/20 06:00 O2 Sat by Pulse Oximetry (%) 93 L 01/12/20 09:00 Constitutional: Yes: Anxious, Obese Eyes: Yes: WNL HENT: Yes: WNL Cardiovascular: Yes: S1, S2 Respiratory: Yes: Diminished, On BiPap, SOB, Tachypnea Gastrointestinal: Yes: Soft Genitourinary: No: Anuria Breast(s): Yes: WNL Musculoskeletal: Yes: Muscle Weakness Extremities: Yes: Cool Edema: No Peripheral Pulses WNL: Yes Integumentary: Yes: WNL Neurological: Yes: WNL Psychiatric: Yes: Other (anxiety/depression/panic) Labs: CBC, BMP 01/12/20 07:30 01/12/20 07:30 INR, PTT INR 1.25 (0.83-1.09) H 12/19/19 13:13 Abnormal Lab Results 01/12/20 01/13/20 01/13/20 07:30 07:28 07:28 Eosinophils % (Manual) 12.4 H Myelocytes % (Man) 5 H D Anion Gap 6 L Ferritin 784.3 H AST 81 H ALT 270 H Alkaline Phosphatase 150 H C-Reactive Protein 1.0 H Albumin 3.3 L - ....Imaging Chest X-ray: Image Reviewed EKG: Image Reviewed Other: Image Reviewed (telemetry: sinus tachycardia) Problem List - Problems (1) Obesity Code(s): E66.9 - OBESITY, UNSPECIFIED (2) HTN (hypertension) Code(s): I10 - ESSENTIAL (PRIMARY) HYPERTENSION Qualifiers: Hypertension type: essential hypertension Qualified Code(s): I10 - Essential (primary) hypertension (3) NHL (non-Hodgkin's lymphoma) Code(s): C85.90 - NON-HODGKIN LYMPHOMA, UNSPECIFIED, UNSPECIFIED SITE (4) Anxiety Code(s): F41.9 - ANXIETY DISORDER, UNSPECIFIED (5) Acute respiratory failure with hypoxia Code(s): J96.01 - ACUTE RESPIRATORY FAILURE WITH HYPOXIA (6) COVID-19 Code(s): U07.1 - COVID POSITIVE (7) Sinus tachycardia Code(s): R00.0 - TACHYCARDIA, UNSPECIFIED Assessment/Plan 1. Acute hypoxic respiratory failure currently on NIPPV 2. (+) COVID 19 - pneumonitis 3. HTN 4. Non Hodgkins Lymphoma in remission 5. Sinus tachycardia; multiple contributers (including anxiety; respiratory distress; ? PE; CHF) 6. Leukocytosis, abnormal LFT, inflammatory markers and D dimer due to COVID 7. H/o DVT PLAN: 1. IV steroid taper with GI protection, Zinc, consideration for Remdesivir 2. Metoprolol 12.5 qd 3. Lovenox 90 mg Q12 until PE ruled out. 4. BD as needed 5. BIPAP and titrate FiO2 to keep SpO2 >90% 6. F/u CTA/given elevated d-dimer and h/o dvt's, continued sinus tachycardia. Pt's sister says pt had some reaction to "contrast" when she had a CT chest at [facility]; will try to obtain records. (On further discussion with one of pt's nurses, pt and sister apparently told medical doctor nuclear medicine last Thursday that there was not a true negative reaction to contrast, but that pt was highly anxious during the CT). 7. COVID status being checked again.
--- NOTE | 2020-01-12 13:27 | PN ---
Progress Note (short form) - Note Progress Note: PULMONARY REMAINS ON AVAPS/100%/RATE 16/ [place] 475ML/EPAP 12/SPO2 90's/[id number] RELUCTANT TO CHANGE MODE OF VENTILATION CTA DECLINED CXR :IMPROVED AERATION VSS/AFEBRILE/TACHY Gen: Stable Heart: tachycardic, regular Lung: diminished breath sounds Abd: soft, nontender Ext: no edema Active Medications/labs/images/micro/notes/ABG reviewed INFLAMMATORY MARKERS NOTED ASSESSMENT AND PLAN Acute Hypoxic Respiratory Failure COVID Pneumonia Tachycardia resolved ARDS resolved Septic Shock resolved Elevated LFTs same h/o Hodgkins Lymphoma h/o DVTs - echo ordered to r/o covid induced cardiomyopathy - empiric steroids - empiric anticoagulation - titrate FiO2 to keep SpO2 >90% - continue NIPPV - pulse oximetry monitoring - treat anxiety as ordered Gene RIOS MD
--- NOTE | 2020-01-12 16:27 | PN ---
Teaching Attending Note Name of Resident: Layne Doss ATTENDING PHYSICIAN STATEMENT I saw and evaluated the patient. I reviewed the resident's note and discussed the case with the resident. I agree with the resident's findings and plan as documented. SUBJECTIVE: Patient is feeling better with no acute distress. saturating better, 92% on 100% Fio2. OBJECTIVE: Vital Signs Temperature 98.9 F 01/12/20 14:00 Pulse Rate 129 H 01/12/20 14:00 Respiratory Rate 24 H 01/12/20 14:00 Blood Pressure 105/74 01/12/20 14:00 O2 Sat by Pulse Oximetry (%) 92 L 01/12/20 09:00 PE: per resident's note CBCD WBC 9.4 K/mm3 (4.0-10.0) 01/12/20 07:30 RBC 4.26 M/mm3 (3.60-5.2) 01/12/20 07:30 Hgb 13.2 GM/dL (10.7-15.3) 01/12/20 07:30 Hct 39.1 % (32.4-45.2) 01/12/20 07:30 MCV 91.6 fl (80-96) 01/12/20 07:30 MCHC 33.7 g/dl (32.0-36.0) 01/12/20 07:30 RDW 15.9 % (11.6-15.6) H 01/12/20 07:30 Plt Count 246 K/MM3 (134-434) 01/12/20 07:30 MPV 7.7 fl (7.5-11.1) 01/12/20 07:30 CMP Sodium 138 mmol/L (136-145) 01/12/20 07:30 Potassium 4.1 mmol/L (3.5-5.1) 01/12/20 07:30 Chloride 100 mmol/L (98-107) 01/12/20 07:30 Carbon Dioxide 31 mmol/L (21-32) 01/12/20 07:30 Anion Gap 7 MMOL/L (8-16) L 01/12/20 07:30 BUN 12.6 mg/dL (7-18) 01/12/20 07:30 Creatinine 0.6 mg/dL (0.55-1.3) 01/12/20 07:30 Random Glucose 82 mg/dL (74-106) 01/12/20 07:30 Calcium 8.9 mg/dL (8.5-10.1) 01/12/20 07:30 Total Bilirubin 0.6 mg/dL (0.2-1) 01/12/20 07:30 AST 68 U/L (15-37) H 01/12/20 07:30 ALT 249 U/L (13-61) H 01/12/20 07:30 Alkaline Phosphatase 141 U/L (45-117) H 01/12/20 07:30 Total Protein 6.5 g/dl (6.4-8.2) 01/12/20 07:30 Albumin 3.0 g/dl (3.4-5.0) L 01/12/20 07:30 CARDIAC ENZYMES Creatine Kinase 32 U/L (26-192) 12/29/19 07:10 Troponin I < 0.02 ng/ml (0.00-0.05) 12/19/19 13:13 Current Medications Generic Name Dose Route Start Last Admin Trade Name Freq PRN Reason Stop Dose Admin Acetaminophen 650 mg 12/28/19 15:59 Tylenol - PO Q6H PRN PAIN Albuterol Sulfate 2 puff 12/28/19 15:59 Ventolin Hfa Inhaler - IH Q4H PRN SHORT OF BREATH/WHEEZING Alprazolam 0.5 mg 01/09/20 10:20 Xanax - PO Q6H PRN ANXIETY Alprazolam 0.5 mg 01/09/20 10:20 01/12/20 10:21 Xanax - PO 0.5 mg BID [facility] Administration Ascorbic Acid 500 mg 12/30/19 10:00 01/12/20 10:24 Vitamin C - PO 500 mg DAILY [facility] Administration Cholecalciferol 1,000 unit 12/30/19 10:00 01/12/20 10:20 Vitamin D3 - PO 1,000 unit DAILY [facility] Administration Enoxaparin Sodium 90 mg 01/06/20 22:00 01/12/20 10:19 Lovenox - SQ 90 mg BID [facility] Administration Lactobacillus Acidophilus 1 tab 12/29/19 10:00 01/12/20 10:19 Bacid - PO 1 tab DAILY [facility] Administration Methylprednisolone Sodium Succinate 30 mg 01/12/20 11:17 Solu-Medrol - IVPUSH DAILY [facility] Metoprolol Succinate 12.5 mg 01/12/20 15:06 Toprol Xl - PO DAILY [facility] Pantoprazole Sodium 40 mg 12/29/19 10:00 01/12/20 10:18 Protonix - PO 40 mg DAILY [facility] Administration Polyethylene Glycol 17 gm 01/09/20 17:43 01/11/20 11:50 Miralax (For Daily Use) - PO 17 gm Q24H PRN Administration CONSTIPATION Zinc Sulfate 220 mg 12/29/19 10:00 01/12/20 10:19 Orazinc - PO 220 mg DAILY [facility] Administration Home Medications Medication Instructions Recorded Cetirizine HCl 10 mg PO DAILY 12/29/19 traZODone HCL [Trazodone HCl] 50 mg PO HS 12/29/19 Laboratory Tests 01/07/20 01/07/20 01/09/20 05:55 05:55 08:30 D-Dimer 1824 H 1878 H Random Glucose Ferritin AST 53 H ALT 165 H Alkaline Phosphatase LD Total 476 H C-Reactive Protein 1.8 H 01/10/20 01/10/20 01/11/20 08:00 08:00 06:24 D-Dimer 1211 H Random Glucose 73 L Ferritin 777.3 H AST 68 H ALT 245 H Alkaline Phosphatase 146 H LD Total 500 H C-Reactive Protein 11.7 H 5.6 H 01/12/20 01/12/20 07:30 07:30 D-Dimer 1447 H Random Glucose Ferritin AST ALT Alkaline Phosphatase LD Total C-Reactive Protein 2.2 H ASSESSMENT AND PLAN: Patient is a 44yof with PMhx of lymphoma, DVT who presented with myalgia and was found to have acute hypoxic resp failure due to COVID 19 # COVID 19 infection : patient's markers are trending down now, s/p Tocilizumab 8mg/kg. improved her saturation , breathing better now, will follow. s/p plaquenil. Declined plasma. Resident discussed with ID, . c-reactive protein is trending down. # Acute hypoxic resp failure due to Covid 19: cont CPAP , patient declined CTA # B/l PNA due to covid # Anxiety continue xanax # Sinus tachy in setting of anxiety continue anxiolytics on a low dose # S/p septic shock # Transaminitis continues to trend up due to COVID #leukocytosis due to steroids. day 21 of steroids. cont taper: 35 mg BID day will decrease to 30mg bid DVT px: lovenox 90mg bid solu medrol 30mg iv will continue to trend the markers. continue to monitor the saturation .
--- NOTE | 2020-01-12 16:31 | ECHO ---
Version: 1 Name: SUSAN EPPERSON Exam: Adult Echocardiogram Study Date: 01/12/2020, 2:42 PM Age: 44 Years MMode/2D Measurements & Calculations IVSd: 1.03 cm LVIDs: 3.5 cm LVIDd: 4.7 cm LVPWd: 1.01 cm LAV (MOD-bp): 24.0 ml ACS: 1.94 cm Ao root diam: 3.2 cm LVOT diam: 2.10 cm LA dimension: 2.21 cm Doppler Measurements & Calculations MV E max ghulam: 61.2 cm/sec Med E/e': 9.8 MV A max ghulam: 73.5 cm/sec Med Peak E' Ghulam: 6.2 cm/sec MV E/A: 0.83 Lat E/e': 5.7 Lat Peak E' Ghulam: 10.7 cm/sec Ao max P.9 mmHg MARY(I,D): 2.35 cm Ao mean P.91 mmHg LV V1 mean: 41.7 cm/sec Ao V2 max: 99.1 cm/sec LV V1 mean P.86 mmHg TR max ghulam: 328.9 cm/sec TR max P.3 mmHg Procedure A complete two-dimensional transthoracic echocardiogram was performed (2D, M-mode, Doppler and color flow Doppler). Patient was in sinus tachycardia during the exam. Left Ventricle The left ventricular size, thickness and function are normal. Ejection Fraction = 55-60%. The left ventricular wall motion is normal. Right Ventricle The right ventricle is normal in size and function. Atria Normal left and right atrial size and function. Mitral Valve There is no mitral regurgitation noted. Tricuspid Valve There is mild tricuspid regurgitation. There is mild pulmonary hypertension. Aortic Valve No hemodynamically significant valvular aortic stenosis. No aortic regurgitation is present. Pulmonic Valve There is no pulmonic valvular regurgitation. Great Vessels The aortic root is normal size. Pericardium/Pleura There is no pericardial effusion. Summary Statements The left ventricular size, thickness and function are normal The right ventricle is normal in size and function. There is mild tricuspid regurgitation. There is mild pulmonary hypertension. MD Geronimo Santa 01/12/2020, 4:31 PM Ordering Physician: Marito Shepherd Referring Physician: MARITO Shepherd Performed By: Emily Ritter
--- NOTE | 2020-01-13 07:29 | PN ---
Physical Exam: SUBJECTIVE: Patient seen and examined at the bedside. Pt is very uncomfortable with the BiPAP and reports she "keeps it loose" and that is why her O2 sats are low. She reports that she thinks the tocilizumab is helping and she is very apprehensive about the plasma, though is actively considering it. OBJECTIVE: Vital Signs Period Temp Pulse Resp BP Sys/Rivera Pulse Ox Last 24 Hr 97.7 F-98.9 F 109-129 18-26 104-117/68-74 92-93 GENERAL: The patient is awake, alert, and fully oriented, in no acute distress. HEAD: Normal with no signs of trauma. NECK: Trachea midline, full range of motion, supple. LUNGS: Diminised breath sounds bilaterally, no accessory muscle use. HEART: Regular rhythm, tachycardic, S1, S2 ABDOMEN: Soft, nontender, nondistended EXTREMITIES: 2+ pulses, warm, well-perfused, no edema. NEUROLOGICAL: Cranial nerves II through XII grossly intact Laboratory Results - last 24 hr 01/12/20 01/12/20 01/12/20 07:30 07:30 07:30 WBC 9.4 RBC 4.26 Hgb 13.2 Hct 39.1 MCV 91.6 MCH 30.9 MCHC 33.7 RDW 15.9 H Plt Count 246 MPV 7.7 Absolute Neuts (auto) 6.4 Neutrophils % 67.5 Neutrophils % (Manual) 60.3 Band Neutrophils % 0.0 Lymphocytes % 14.4 Lymphocytes % (Manual) 12.4 Monocytes % 6.5 Monocytes % (Manual) 8 D Eosinophils % 10.5 H Eosinophils % (Manual) 12.4 H Basophils % 1.1 Basophils % (Manual) 0.8 D Myelocytes % (Man) 5 H D Promyelocytes % (Man) 0 Blast Cells % (Manual) 0 Nucleated RBC % 0 Metamyelocytes 1 D Hypochromia 0 Platelet Estimate Normal Polychromasia 0 Poikilocytosis 0 Anisocytosis 0 Microcytosis 0 Macrocytosis 0 D-Dimer 1447 H Sodium 138 Potassium 4.1 Chloride 100 Carbon Dioxide 31 Anion Gap 7 L BUN 12.6 Creatinine 0.6 Est GFR (CKD-EPI)AfAm 130.30 Est GFR (CKD-EPI)NonAf 112.42 Random Glucose 82 Calcium 8.9 Ferritin 712.0 H Total Bilirubin 0.6 AST 68 H ALT 249 H Alkaline Phosphatase 141 H LD Total 457 H C-Reactive Protein 2.2 H Total Protein 6.5 Albumin 3.0 L Active Medications Generic Name Dose Route Start Last Admin Trade Name Freq PRN Reason Stop Dose Admin Acetaminophen 650 mg 12/28/19 15:59 Tylenol - PO Q6H PRN PAIN Albuterol Sulfate 2 puff 12/28/19 15:59 Ventolin Hfa Inhaler - IH Q4H PRN SHORT OF BREATH/WHEEZING Alprazolam 0.5 mg 01/09/20 10:20 Xanax - PO Q6H PRN ANXIETY Alprazolam 0.5 mg 01/09/20 10:20 01/12/20 22:45 Xanax - PO 0.25 mg BID [facility] Administration Ascorbic Acid 500 mg 12/30/19 10:00 01/12/20 10:24 Vitamin C - PO 500 mg DAILY [facility] Administration Cholecalciferol 1,000 unit 12/30/19 10:00 01/12/20 10:20 Vitamin D3 - PO 1,000 unit DAILY [facility] Administration Enoxaparin Sodium 90 mg 01/06/20 22:00 01/12/20 22:02 Lovenox - SQ 90 mg BID [facility] Administration Lactobacillus Acidophilus 1 tab 12/29/19 10:00 01/12/20 10:19 Bacid - PO 1 tab DAILY [facility] Administration Methylprednisolone Sodium Succinate 30 mg 01/12/20 11:17 Solu-Medrol - IVPUSH DAILY [facility] Metoprolol Succinate 12.5 mg 01/12/20 15:06 Toprol Xl - PO DAILY [facility] Nystatin 1 applic 01/13/20 10:00 Nystop Powder - TP DAILY [facility] Pantoprazole Sodium 40 mg 12/29/19 10:00 01/12/20 10:18 Protonix - PO 40 mg DAILY [facility] Administration Polyethylene Glycol 17 gm 01/09/20 17:43 01/11/20 11:50 Miralax (For Daily Use) - PO 17 gm Q24H PRN Administration CONSTIPATION Zinc Sulfate 220 mg 12/29/19 10:00 01/12/20 10:19 Orazinc - PO 220 mg DAILY [facility] Administration ASSESSMENT/PLAN: 44F PMH Hodgkins' lymphoma s/p radiation and stem cell transplant (2011), appendectomy, cholecystectomy, anxiety, who presents with acute respiratory failure 2/2/ to COVID infection 1) Acute hypoxic respiratory failure 2/2 COVID - Pt refused chest CTA - pt refused Plasma therapy, will attempt to discuss with patient again today> now states she is amenable to taking it if she does not improve on tocilizumab - s/p abx and tocilizumab - decrease solumedrol to 30 daily. Tapering Day 6. - Lovenox 90 BID until PE r/o - zinc, vitamin c, vitamin d - albuterol inhaler - monitor ferritin, LDH, CRP daily, improving. - maintain Sao2 >90% on cpap. Pt satting 85-> 93% on 100% FiO2 CPAP, wean as appropriate - Pulmonology consulted, Dr. Shepherd, appreciate recs: - continue empiric steroids - continue empiric anticoagulation - titrate FiO2 to keep SpO2 >90% - continue NIPPV - pulse oximetry monitoring - treat anxiety as ordered -Will follow up with pulm in AM to see if pt might benefit from high flow or another form of supplemental O2 that is more comfortable 2) Hx of anxiety - Xanax 0.5 Q6H PRN, only requiring 0.25 yesterday - Xanax 0.5 BID - Psychiatry consulted, appreciate recs 3) Sinus Tachycardia - Possibly 2/2 anxiety - metoprolol 12.5 daily - Consulted cardiology, Dr. Vasquez, appreciate recommendations - Holter monitor 2011 for "palpitations" that showed high resting HR: Underlying rhythm sinus; average HR 98 bpm; maximum 150 bpm sinus tach; no arrhythmias. - F/u CTA/given elevated d-dimer and h/o dvt's, continued sinus tachycardia. Pt's sister says pt had some reaction to "contrast" when she had a CT chest at [facility]; will try to obtain records. Reaction possibly due to anxiety and not allergic reaction DVT: Lovenox BID F: Oral hydration E: Monitor CMP N: full liquid diet Dispo: Monitor on Telemetry. Continue close watch. Visit type - Emergency Visit Emergency Visit: Yes ED Registration Date: 12/19/19 Care time: The patient presented to the Emergency Department on the above date and was hospitalized for further evaluation of their emergent condition. - New Patient This patient is new to me today: No - Critical Care Critical Care patient: No ATTENDING PHYSICIAN STATEMENT I saw and evaluated the patient. I reviewed the resident's note and discussed the case with the resident. I agree with the resident's findings and plan as documented. SUBJECTIVE: OBJECTIVE: ASSESSMENT AND PLAN:
[2020-01-13] MEDS ORDERED: PT OWN MED DRAWER 7, Y5N ONE (08:46)
[2020-01-13 08:54] LABS: ALBUMIN 3.3 g/dl (3.4-5.0); BILIRUBIN,TOTAL 0.5 mg/dL (0.2-1); CALCIUM 9.1 mg/dL (8.5-10.1); CREATININE 0.6 mg/dL (0.55-1.3); MAGNESIUM 1.8 mg/dL (1.8-2.4); PHOSPHOROUS 3.3 mg/dL (2.5-4.9); POTASSIUM 3.6 mmol/L (3.5-5.1); TOT PROT 6.7 g/dl (6.4-8.2)
[2020-01-13] MEDS: ENOXAPARIN NA (PORCINE) 100 MG/1 ML DISP.SYRIN SQ SCH ×2 (09:23→21:44)
[2020-01-13] MEDS: LACTOBACILLUS ACIDOPHILUS 1 TABLET PO SCH (09:23)
[2020-01-13] MEDS: PANTOPRAZOLE 40 MG TABLET PO SCH (09:24)
[2020-01-13] MEDS: methylPREDNISolone NA SUCC 40 MG/1 ML VIAL IVPUSH SCH (09:24)
[2020-01-13] MEDS: metoPROLOL SUCCINATE 25 MG TAB.SR.24H (FP) PO SCH (09:24)
[2020-01-13] MEDS: ALPRAZolam 0.25 MG TABLET PO SCH ×2 (09:24→21:44)
[2020-01-13] MEDS: ASCORBIC ACID 500 MG TABLET (FP) PO SCH (09:24)
[2020-01-13] MEDS: CHOLECALCIFEROL (VIT D3) 1,000 UNIT (25 MCG) TABLET PO SCH (09:24)
[2020-01-13] MEDS: ZINC SULFATE 220 MG CAPSULE (FP) PO SCH (09:24)
[2020-01-13 09:57] LABS: BASO % 0.7 % (0-2.0); EOS % 10.8 % (0-4.5); HEMATOCRIT 41.3 % (32.4-45.2); HEMOGLOBIN 13.7 GM/dL (10.7-15.3); LYMPH % 13.9 % (8-40); MCH 30.7 pg (25.7-33.7); MCHC 33.3 g/dl (32.0-36.0); MEAN CELL VOLUME 92.3 fl (80-96); MEAN PLT VOLUME 8.1 fl (7.5-11.1); NEUT % 66.6 % (42.8-82.8); PLATELET COUNT 298 K/MM3 (134-434); RBC 4.48 M/mm3 (3.60-5.2); RDW 16.6 % (11.6-15.6); WHITE BLOOD COUNT 11.4 K/mm3 (4.0-10.0)
--- NOTE | 2020-01-13 11:06 | PN ---
Progress Note, Physician History of Present Illness: pulmonary awake on nippv,-resp distress - Current Medication List Current Medications: Active Medications Acetaminophen (Tylenol -) 650 mg PO Q6H PRN PRN Reason: PAIN Albuterol Sulfate (Ventolin Hfa Inhaler -) 2 puff IH Q4H PRN PRN Reason: SHORT OF BREATH/WHEEZING Alprazolam (Xanax -) 0.5 mg PO Q6H PRN PRN Reason: ANXIETY Alprazolam (Xanax -) 0.5 mg PO BID [facility] Last Admin: 01/13/20 09:24 Dose: 0.5 mg Documented by: Ascorbic Acid (Vitamin C -) 500 mg PO DAILY [facility] Last Admin: 01/13/20 09:24 Dose: 500 mg Documented by: Cholecalciferol (Vitamin D3 -) 1,000 unit PO DAILY [facility] Last Admin: 01/13/20 09:24 Dose: 1,000 unit Documented by: Enoxaparin Sodium (Lovenox -) 90 mg SQ BID [facility] Last Admin: 01/13/20 09:23 Dose: 90 mg Documented by: Lactobacillus Acidophilus (Bacid -) 1 tab PO DAILY [facility] Last Admin: 01/13/20 09:23 Dose: 1 tab Documented by: Methylprednisolone Sodium Succinate (Solu-Medrol -) 30 mg IVPUSH DAILY [facility] Last Admin: 01/13/20 09:24 Dose: 30 mg Documented by: Metoprolol Succinate (Toprol Xl -) 12.5 mg PO DAILY [facility] Last Admin: 01/13/20 09:24 Dose: 12.5 mg Documented by: Nystatin (Nystop Powder -) 1 applic TP DAILY [facility] Pantoprazole Sodium (Protonix -) 40 mg PO DAILY [facility] Last Admin: 01/13/20 09:24 Dose: 40 mg Documented by: Polyethylene Glycol (Miralax (For Daily Use) -) 17 gm PO Q24H PRN PRN Reason: CONSTIPATION Last Admin: 01/11/20 11:50 Dose: 17 gm Documented by: Zinc Sulfate (Orazinc -) 220 mg PO DAILY [facility] Last Admin: 01/13/20 09:24 Dose: 220 mg Documented by: - Objective Vital Signs: Vital Signs Temperature 97.7 F 01/13/20 08:38 Pulse Rate 121 H 01/13/20 08:38 Respiratory Rate 18 01/13/20 06:00 Blood Pressure 114/64 01/13/20 08:38 O2 Sat by Pulse Oximetry (%) 88 L 01/13/20 08:38 Constitutional: Yes: Calm, Obese Eyes: Yes: WNL HENT: Yes: WNL Neck: Yes: WNL Cardiovascular: Yes: Regular Rate and Rhythm, S1, S2 Respiratory: Yes: Diminished Gastrointestinal: Yes: Normal Bowel Sounds, Soft Extremities: Yes: WNL Edema: No Labs: CBC, BMP 01/13/20 09:10 01/13/20 07:28 INR, PTT INR 1.25 (0.83-1.09) H 12/19/19 13:13 Laboratory Tests 01/13/20 01/13/20 07:28 09:10 D-Dimer 1643 H Ferritin 784.3 H C-Reactive Protein 1.0 H Problem List - Problems (1) COVID-19 Code(s): U07.1 - COVID POSITIVE (2) Acute respiratory failure with hypoxia Code(s): J96.01 - ACUTE RESPIRATORY FAILURE WITH HYPOXIA (3) Acute hypoxemic respiratory failure Code(s): J96.01 - ACUTE RESPIRATORY FAILURE WITH HYPOXIA (4) HTN (hypertension) Code(s): I10 - ESSENTIAL (PRIMARY) HYPERTENSION Qualifiers: Hypertension type: essential hypertension Qualified Code(s): I10 - Es sential (primary) hypertension (5) Obesity Code(s): E66.9 - OBESITY, UNSPECIFIED (6) Suspected COVID-19 virus infection Code(s): R68.89 - OTHER GENERAL SYMPTOMS AND SIGNS Assessment/Plan ASSESSMENT AND PLAN Acute Hypoxic Respiratory Failure COVID Pneumonia ARDS resolved Septic Shock resolved Elevated LFTs h/o Hodgkins Lymphoma h/o DVTs - refused convalescent plasma - completed antibiotics - completed plaquenil course - empiric steroids - empiric anticoagulation - continue CPAP - titrate FiO2 to keep SpO2 >90% - pulse oximetry monitoring - continue current treatment plan DR GIBSON
[2020-01-13 12:57] LABS: ANISOCYTOSIS 1+; MACROCYTOSIS 0; OVALOCYTE 1+; PLATELET ESTIMATE NORMAL; TEAR DROP CELLS 1+
[2020-01-13] MEDS: NYSTATIN POWDER 100,000 UNITS/GM - 15 GM TOPICAL POWDER TP SCH (17:22)
--- NOTE | 2020-01-13 17:37 | PN ---
Progress Note, Physician Chief Complaint: Pt A&OX3; on BIPAP; feels "much better" (less SOB since starting to bring up clear phlegm, which she attributes to being on a new IV medication; no palpitations or chest pain). Refused plasma, because she feels the present medications are now helping her. History of Present Illness: 44 year old woman with PMH Hodgkins' lymphoma X3 s/p radiation and stem cell transplant in 2012, not on active treatment, in remission x 8 yrs, appendectomy, cholecystectomy, anxiety, obesity, presenting with SOB and myalgias. States that she has felt ill for the past 10 days with myalgias and malaise, but over the past 5 days, she has had progressively worsening SOB and SONG, associated with cough, loss of appetite, and fevers/chills. 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 Sister is a known COVID positive. Pt COVID-19 detected 12/19/2019. - Current Medication List Current Medications: Active Medications Acetaminophen (Tylenol -) 650 mg PO Q6H PRN PRN Reason: PAIN Albuterol Sulfate (Ventolin Hfa Inhaler -) 2 puff IH Q4H PRN PRN Reason: SHORT OF BREATH/WHEEZING Alprazolam (Xanax -) 0.5 mg PO Q6H PRN PRN Reason: ANXIETY Alprazolam (Xanax -) 0.5 mg PO BID [facility] Last Admin: 01/13/20 09:24 Dose: 0.5 mg Documented by: Ascorbic Acid (Vitamin C -) 500 mg PO DAILY [facility] Last Admin: 01/13/20 09:24 Dose: 500 mg Documented by: Cholecalciferol (Vitamin D3 -) 1,000 unit PO DAILY [facility] Last Admin: 01/13/20 09:24 Dose: 1,000 unit Documented by: Enoxaparin Sodium (Lovenox -) 90 mg SQ BID [facility] Last Admin: 01/13/20 09:23 Dose: 90 mg Documented by: Lactobacillus Acidophilus (Bacid -) 1 tab PO DAILY [facility] Last Admin: 01/13/20 09:23 Dose: 1 tab Documented by: Methylprednisolone Sodium Succinate (Solu-Medrol -) 30 mg IVPUSH DAILY [facility] Last Admin: 01/13/20 09:24 Dose: 30 mg Documented by: Metoprolol Succinate (Toprol Xl -) 12.5 mg PO DAILY [facility] Last Admin: 01/13/20 09:24 Dose: 12.5 mg Documented by: Nystatin (Nystop Powder -) 1 applic TP DAILY [facility] Last Admin: 01/13/20 17:22 Dose: Not Given Documented by: Pantoprazole Sodium (Protonix -) 40 mg PO DAILY [facility] Last Admin: 01/13/20 09:24 Dose: 40 mg Documented by: Polyethylene Glycol (Miralax (For Daily Use) -) 17 gm PO Q24H PRN PRN Reason: CONSTIPATION Last Admin: 01/11/20 11:50 Dose: 17 gm Documented by: Zinc Sulfate (Orazinc -) 220 mg PO DAILY [facility] Last Admin: 01/13/20 09:24 Dose: 220 mg Documented by: - Objective Vital Signs: Vital Signs Temperature 98.3 F 01/13/20 14:00 Pulse Rate 93 H 01/13/20 14:00 Respiratory Rate 20 01/13/20 14:00 Blood Pressure 124/79 01/13/20 14:00 O2 Sat by Pulse Oximetry (%) 93 L 01/13/20 14:10 Constitutional: Yes: Anxious, Obese Eyes: Yes: WNL HENT: Yes: WNL Neck: Yes: WNL Cardiovascular: Yes: S1, S2 Respiratory: Yes: Diminished, On BiPap, Tachypnea Gastrointestinal: Yes: Soft. No: Tenderness ...Rectal Exam: Yes: Deferred Genitourinary: No: Anuria Breast(s): Yes: WNL Musculoskeletal: Yes: Muscle Weakness Extremities: Yes: WNL Edema: No Peripheral Pulses WNL: Yes Integumentary: Yes: Tattoos. No: Erythema Neurological: Yes: Alert, Oriented Psychiatric: Yes: Alert, Oriented, Other (anxiety) Labs: CBC, BMP 01/13/20 09:10 01/13/20 07:28 INR, PTT INR 1.25 (0.83-1.09) H 12/19/19 13:13 Abnormal Lab Results 01/13/20 01/13/20 01/13/20 07:28 07:28 09:10 WBC 11.4 H RDW 16.6 H Lymphocytes % (Manual) 7.1 L D Eosinophils % 10.8 H Eosinophils % (Manual) 19.0 H Nucleated RBC % 1 H D-Dimer Anion Gap 6 L Ferritin 784.3 H AST 81 H ALT 270 H Alkaline Phosphatase 150 H C-Reactive Protein 1.0 H Albumin 3.3 L 01/13/20 09:10 WBC RDW Lymphocytes % (Manual) Eosinophils % Eosinophils % (Manual) Nucleated RBC % D-Dimer 1643 H Anion Gap Ferritin AST ALT Alkaline Phosphatase C-Reactive Protein Albumin - ....Imaging Chest X-ray: Image Reviewed EKG: Image Reviewed Problem List - Problems (1) Obesity Code(s): E66.9 - OBESITY, UNSPECIFIED (2) HTN (hypertension) Code(s): I10 - ESSENTIAL (PRIMARY) HYPERTENSION Qualifiers: Hypertension type: essential hypertension Qualified Code(s): I10 - Essential (primary) hypertension (3) NHL (non-Hodgkin's lymphoma) Code(s): C85.90 - NON-HODGKIN LYMPHOMA, UNSPECIFIED, UNSPECIFIED SITE (4) Anxiety Code(s): F41.9 - ANXIETY DISORDER, UNSPECIFIED (5) Acute respiratory failure with hypoxia Code(s): J96.01 - ACUTE RESPIRATORY FAILURE WITH HYPOXIA (6) COVID-19 Code(s): U07.1 - COVID POSITIVE (7) Sinus tachycardia Code(s): R00.0 - TACHYCARDIA, UNSPECIFIED Assessment/Plan 1. Acute hypoxic respiratory failure currently on NIPPV 2. (+) COVID 19 - pneumonitis 3. HTN 4. Non Hodgkins Lymphoma in remission 5. Sinus tachycardia; multiple contributers (including anxiety; respiratory distress; ? PE; CHF) 6. Leukocytosis, abnormal LFT, inflammatory markers and D dimer due to COVID 7. H/o DVT PLAN: 1.Pt feels symptomatically improved on Tocilizumab; f/u inflammatory markers. IV steroid taper with GI protection, Zinc; pt has refused plasma; consider Remdesivir. 2. Metoprolol 12.5 qd 3. Lovenox 90 mg Q12 (COVID; PE also being ruled out) 4. BD as needed 5. BIPAP and titrate FiO2 to keep SpO2 >90% 6. Consider CTA/given elevated d-dimer and h/o dvt's, continued sinus tachycard ia. Pt's sister says pt had some reaction to "contrast" when she had a CT chest at [facility]; will try to obtain records. (On further discussion with one of pt's nurses, pt and sister apparently told medical records field technician last Thursday that there was not a true negative reaction to contrast, but that pt was highly anxious during the CT). 7. ECHO 01/13/20: normal LVEF; normal RV and RVEF. 8. COVID status reportedly being checked again.
--- NOTE | 2020-01-13 18:18 | PN ---
<Shahab Vasquez - Last Filed: 01/13/20 22:24> Teaching Attending Note ATTENDING PHYSICIAN STATEMENT I saw and evaluated the patient. I reviewed the resident's note and discussed the case with the resident. I agree with the resident's findings and plan as documented. SUBJECTIVE: OBJECTIVE: ASSESSMENT AND PLAN: Problem List - Problems (1) Obesity Code(s): E66.9 - OBESITY, UNSPECIFIED (2) HTN (hypertension) Code(s): I10 - ESSENTIAL (PRIMARY) HYPERTENSION Qualifiers: Hypertension type: essential hypertension Qualified Code(s): I10 - Essenti al (primary) hypertension (3) NHL (non-Hodgkin's lymphoma) Code(s): C85.90 - NON-HODGKIN LYMPHOMA, UNSPECIFIED, UNSPECIFIED SITE (4) Anxiety Code(s): F41.9 - ANXIETY DISORDER, UNSPECIFIED (5) Acute respiratory failure with hypoxia Code(s): J96.01 - ACUTE RESPIRATORY FAILURE WITH HYPOXIA (6) COVID-19 Code(s): U07.1 - COVID POSITIVE (7) Sinus tachycardia Code(s): R00.0 - TACHYCARDIA, UNSPECIFIED <Brandt Nguyễn - Last Filed: 01/15/20 18:32> Teaching Attending Note Name of Resident: Layne Doss ATTENDING PHYSICIAN STATEMENT I saw and evaluated the patient. I reviewed the resident's note and discussed the case with the resident. I agree with the resident's findings and plan as documented. SUBJECTIVE: continues labored breathing on cpap OBJECTIVE: Vital Signs Temperature 98.3 F 01/13/20 14:00 Pulse Rate 93 H 01/13/20 14:00 Respiratory Rate 20 01/13/20 14:00 Blood Pressure 124/79 01/13/20 14:00 O2 Sat by Pulse Oximetry (%) 93 L 01/13/20 14:10 PE: per resident's note CBCD WBC 11.4 K/mm3 (4.0-10.0) H 01/13/20 09:10 RBC 4.48 M/mm3 (3.60-5.2) 01/13/20 09:10 Hgb 13.7 GM/dL (10.7-15.3) 01/13/20 09:10 Hct 41.3 % (32.4-45.2) 01/13/20 09:10 MCV 92.3 fl (80-96) 01/13/20 09:10 MCHC 33.3 g/dl (32.0-36.0) 01/13/20 09:10 RDW 16.6 % (11.6-15.6) H 01/13/20 09:10 Plt Count 298 K/MM3 (134-434) D 01/13/20 09:10 MPV 8.1 fl (7.5-11.1) 01/13/20 09:10 CMP Sodium 136 mmol/L (136-145) 01/13/20 07:28 Potassium 3.6 mmol/L (3.5-5.1) 01/13/20 07:28 Chloride 99 mmol/L (98-107) 01/13/20 07:28 Carbon Dioxide 31 mmol/L (21-32) 01/13/20 07:28 Anion Gap 6 MMOL/L (8-16) L 01/13/20 07:28 BUN 11.0 mg/dL (7-18) 01/13/20 07:28 Creatinine 0.6 mg/dL (0.55-1.3) 01/13/20 07:28 Random Glucose 79 mg/dL (74-106) 01/13/20 07:28 Calcium 9.1 mg/dL (8.5-10.1) 01/13/20 07:28 Total Bilirubin 0.5 mg/dL (0.2-1) 01/13/20 07:28 AST 81 U/L (15-37) H 01/13/20 07:28 ALT 270 U/L (13-61) H 01/13/20 07:28 Alkaline Phosphatase 150 U/L (45-117) H 01/13/20 07:28 Total Protein 6.7 g/dl (6.4-8.2) 01/13/20 07:28 Albumin 3.3 g/dl (3.4-5.0) L 01/13/20 07:28 CARDIAC ENZYMES Creatine Kinase 32 U/L (26-192) 12/29/19 07:10 Troponin I < 0.02 ng/ml (0.00-0.05) 12/19/19 13:13 Current Medications Generic Name Dose Route Start Last Admin Trade Name Freq PRN Reason Stop Dose Admin Acetaminophen 650 mg 12/28/19 15:59 Tylenol - PO Q6H PRN PAIN Albuterol Sulfate 2 puff 12/28/19 15:59 Ventolin Hfa Inhaler - IH Q4H PRN SHORT OF BREATH/WHEEZING Alprazolam 0.5 mg 01/09/20 10:20 Xanax - PO Q6H PRN ANXIETY Alprazolam 0.5 mg 01/09/20 10:20 01/13/20 09:24 Xanax - PO 0.5 mg BID [facility] Administration Ascorbic Acid 500 mg 12/30/19 10:00 01/13/20 09:24 Vitamin C - PO 500 mg DAILY [facility] Administration Cholecalciferol 1,000 unit 12/30/19 10:00 01/13/20 09:24 Vitamin D3 - PO 1,000 unit DAILY [facility] Administration Enoxaparin Sodium 90 mg 01/06/20 22:00 01/13/20 09:23 Lovenox - SQ 90 mg BID [facility] Administration Lactobacillus Acidophilus 1 tab 12/29/19 10:00 01/13/20 09:23 Bacid - PO 1 tab DAILY [facility] Administration Methylprednisolone Sodium Succinate 30 mg 01/12/20 11:17 01/13/20 09:24 Solu-Medrol - IVPUSH 30 mg DAILY [facility] Administration Metoprolol Succinate 12.5 mg 01/12/20 15:06 01/13/20 09:24 Toprol Xl - PO 12.5 mg DAILY [facility] Administration Nystatin 1 applic 01/13/20 10:00 01/13/20 17:22 Nystop Powder - TP Not Given DAILY [facility] Pantoprazole Sodium 40 mg 12/29/19 10:00 01/13/20 09:24 Protonix - PO 40 mg DAILY [facility] Administration Polyethylene Glycol 17 gm 01/09/20 17:43 01/11/20 11:50 Miralax (For Daily Use) - PO 17 gm Q24H PRN Administration CONSTIPATION Zinc Sulfate 220 mg 12/29/19 10:00 01/13/20 09:24 Orazinc - PO 220 mg DAILY [facility] Administration Home Medications Medication Instructions Recorded Cetirizine HCl 10 mg PO DAILY 12/29/19 traZODone HCL [Trazodone HCl] 50 mg PO HS 12/29/19 ASSESSMENT AND PLAN: Patient is a 44yof with PMhx of lymphoma, DVT who presented with myalgia and was found to have acute hypoxic resp failure due to COVID 19 # COVID 19 infection : patient's markers are trending down now, s/p Tocilizumab 8mg/kg. improved her saturation , breathing better now, will follow. s/p plaquenil. Declined plasma. Resident discussed with ID, . c-reactive protein is trending down. # Acute hypoxic resp failure due to Covid 19: cont CPAP , patient declined CTA # B/l PNA due to covid # Anxiety continue xanax # Sinus tachy in setting of anxiety continue anxiolytics on a low dose # S/p septic shock # Transaminitis continues to trend up due to COVID #leukocytosis due to steroids. day 21 of steroids. cont taper: 35 mg BID day will decrease to 30mg bid DVT px: lovenox 90mg bid solu medrol 30mg iv will continue to trend the markers. continue to monitor the saturation .
[2020-01-14 09:23] LABS: HEMATOCRIT 39.7 % (32.4-45.2); HEMOGLOBIN 13.5 GM/dL (10.7-15.3); MCH 31.2 pg (25.7-33.7); MEAN CELL VOLUME 91.9 fl (80-96); PLATELET COUNT 269 K/MM3 (134-434); RBC 4.32 M/mm3 (3.60-5.2); RDW 16.4 % (11.6-15.6); WHITE BLOOD COUNT 9.3 K/mm3 (4.0-10.0)
--- NOTE | 2020-01-14 09:36 | PN ---
Teaching Attending Note Name of Resident: Layne Doss ATTENDING PHYSICIAN STATEMENT I saw and evaluated the patient. I reviewed the resident's note and discussed the case with the resident. I agree with the resident's findings and plan as documented. SUBJECTIVE: continues to breath with difficulty on cpap OBJECTIVE: Vital Signs Temperature 98.3 F 01/14/20 05:53 Pulse Rate 121 H 01/14/20 05:53 Respiratory Rate 18 01/14/20 05:53 Blood Pressure 103/65 01/14/20 05:53 O2 Sat by Pulse Oximetry (%) 91 L 01/13/20 21:00 PE: per resident's note CBCD WBC 9.3 K/mm3 (4.0-10.0) 01/14/20 08:35 RBC 4.32 M/mm3 (3.60-5.2) 01/14/20 08:35 Hgb 13.5 GM/dL (10.7-15.3) 01/14/20 08:35 Hct 39.7 % (32.4-45.2) 01/14/20 08:35 MCV 91.9 fl (80-96) 01/14/20 08:35 MCHC 34.0 g/dl (32.0-36.0) 01/14/20 08:35 RDW 16.4 % (11.6-15.6) H 01/14/20 08:35 Plt Count 269 K/MM3 (134-434) 01/14/20 08:35 MPV 8.0 fl (7.5-11.1) 01/14/20 08:35 CMP Sodium 136 mmol/L (136-145) 01/13/20 07:28 Potassium 3.6 mmol/L (3.5-5.1) 01/13/20 07:28 Chloride 99 mmol/L (98-107) 01/13/20 07:28 Carbon Dioxide 31 mmol/L (21-32) 01/13/20 07:28 Anion Gap 6 MMOL/L (8-16) L 01/13/20 07:28 BUN 11.0 mg/dL (7-18) 01/13/20 07:28 Creatinine 0.6 mg/dL (0.55-1.3) 01/13/20 07:28 Random Glucose 79 mg/dL (74-106) 01/13/20 07:28 Calcium 9.1 mg/dL (8.5-10.1) 01/13/20 07:28 Total Bilirubin 0.5 mg/dL (0.2-1) 01/13/20 07:28 AST 81 U/L (15-37) H 01/13/20 07:28 ALT 270 U/L (13-61) H 01/13/20 07:28 Alkaline Phosphatase 150 U/L (45-117) H 01/13/20 07:28 Total Protein 6.7 g/dl (6.4-8.2) 01/13/20 07:28 Albumin 3.3 g/dl (3.4-5.0) L 01/13/20 07:28 CARDIAC ENZYMES Creatine Kinase 32 U/L (26-192) 12/29/19 07:10 Troponin I < 0.02 ng/ml (0.00-0.05) 12/19/19 13:13 Current Medications Generic Name Dose Route Start Last Admin Trade Name Freq PRN Reason Stop Dose Admin Acetaminophen 650 mg 12/28/19 15:59 Tylenol - PO Q6H PRN PAIN Albuterol Sulfate 2 puff 12/28/19 15:59 Ventolin Hfa Inhaler - IH Q4H PRN SHORT OF BREATH/WHEEZING Alprazolam 0.5 mg 01/09/20 10:20 Xanax - PO Q6H PRN ANXIETY Alprazolam 0.5 mg 01/09/20 10:20 01/13/20 21:44 Xanax - PO 0.5 mg BID [facility] Administration Ascorbic Acid 500 mg 12/30/19 10:00 01/13/20 09:24 Vitamin C - PO 500 mg DAILY [facility] Administration Cholecalciferol 1,000 unit 12/30/19 10:00 01/13/20 09:24 Vitamin D3 - PO 1,000 unit DAILY [facility] Administration Enoxaparin Sodium 90 mg 01/06/20 22:00 01/13/20 21:44 Lovenox - SQ 90 mg BID [facility] Administration Lactobacillus Acidophilus 1 tab 12/29/19 10:00 01/13/20 09:23 Bacid - PO 1 tab DAILY [facility] Administration Methylprednisolone Sodium Succinate 30 mg 01/12/20 11:17 01/13/20 09:24 Solu-Medrol - IVPUSH 30 mg DAILY [facility] Administration Metoprolol Succinate 12.5 mg 01/12/20 15:06 01/13/20 09:24 Toprol Xl - PO 12.5 mg DAILY [facility] Administration Nystatin 1 applic 01/13/20 10:00 01/13/20 17:22 Nystop Powder - TP Not Given DAILY [facility] Pantoprazole Sodium 40 mg 12/29/19 10:00 01/13/20 09:24 Protonix - PO 40 mg DAILY [facility] Administration Polyethylene Glycol 17 gm 01/09/20 17:43 01/11/20 11:50 Miralax (For Daily Use) - PO 17 gm Q24H PRN Administration CONSTIPATION Zinc Sulfate 220 mg 12/29/19 10:00 01/13/20 09:24 Orazinc - PO 220 mg DAILY [facility] Administration Home Medications Medication Instructions Recorded Cetirizine HCl 10 mg PO DAILY 12/29/19 traZODone HCL [Trazodone HCl] 50 mg PO HS 12/29/19 Selected Entries 01/13/20 01/14/20 21:00 05:53 Pulse Rate 121 H Respiratory 18 Rate Blood Pressure 103/65 Blood Pressure 78 Mean O2 Sat by Pulse 91 L Oximetry (%) Oxygen Delivery Bi-pap Method Fraction of 100 Inspired Oxygen (FIO2) ASSESSMENT AND PLAN: Patient is a 44yof with PMhx of lymphoma, DVT who presented with myalgia and was found to have acute hypoxic resp failure due to COVID 19 # COVID 19 infection : patient's markers are trending down now, s/p Tocilizumab 8mg/kg. improved her saturation , breathing better now, will follow. s/p plaquenil. Declined plasma. Resident discussed with ID, . c-reactive protein is trending down. # Acute hypoxic resp failure due to Covid 19: cont CPAP , patient declined CTA # B/l PNA due to covid # Anxiety continue xanax # Sinus tachy in setting of anxiety continue anxiolytics on a low dose # S/p septic shock # Transaminitis continues to trend up due to COVID #leukocytosis due to steroids. day 21 of steroids. cont taper: 35 mg BID day will decrease to 30mg bid DVT px: lovenox 90mg bid solu medrol 30mg iv will continue to trend the markers. continue to monitor the saturation . continues to refuse plasma and a second dose of toclizimab
[2020-01-14 09:56] LABS: ALBUMIN 3.4 g/dl (3.4-5.0); BILIRUBIN,TOTAL 0.6 mg/dL (0.2-1); BLOOD UREA NITROGEN 9.3 mg/dL (7-18); CALCIUM 9.5 mg/dL (8.5-10.1); CREATININE 0.6 mg/dL (0.55-1.3); TOT PROT 6.8 g/dl (6.4-8.2)
[2020-01-14] MEDS: methylPREDNISolone NA SUCC 40 MG/1 ML VIAL IVPUSH SCH (10:44)
[2020-01-14] MEDS: ENOXAPARIN NA (PORCINE) 100 MG/1 ML DISP.SYRIN SQ SCH ×2 (10:46→22:21)
[2020-01-14] MEDS: LACTOBACILLUS ACIDOPHILUS 1 TABLET PO SCH (10:46)
[2020-01-14] MEDS: PANTOPRAZOLE 40 MG TABLET PO SCH (10:47)
[2020-01-14] MEDS: ZINC SULFATE 220 MG CAPSULE (FP) PO SCH (10:47)
[2020-01-14] MEDS: NYSTATIN POWDER 100,000 UNITS/GM - 15 GM TOPICAL POWDER TP SCH (10:47)
[2020-01-14] MEDS: metoPROLOL SUCCINATE 25 MG TAB.SR.24H (FP) PO SCH (10:47)
[2020-01-14] MEDS: ASCORBIC ACID 500 MG TABLET (FP) PO SCH (10:49)
[2020-01-14] MEDS: CHOLECALCIFEROL (VIT D3) 1,000 UNIT (25 MCG) TABLET PO SCH (10:49)
[2020-01-14] MEDS: ALPRAZolam 0.25 MG TABLET PO SCH ×2 (11:07→22:21)
--- NOTE | 2020-01-14 11:09 | PN ---
Progress Note, Physician Chief Complaint: Coverage for Dr. Monterroso History of Present Illness: Chief Complaint: Pt A&OX3; on BIPAP; feels "much better" (less SOB since starting to bring up clear phlegm, which she attributes to being on a new IV medication; no palpitations or chest pain). Refused plasma, because she feels the present medications are now helping her. History of Present Illness: 44 year old woman with PMH Hodgkins' lymphoma X3 s/p radiation and stem cell transplant in 2012, not on active treatment, in remission x 8 yrs, appendectomy, cholecystectomy, anxiety, obesity, presenting with SOB and myalgias. States that she has felt ill for the past 10 days with myalgias and malaise, but over the past 5 days, she has had progressively worsening SOB and SONG, associated with cough, loss of appetite, and fevers/chills. 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 Sister is a known COVID positive. Pt COVID-19 detected 12/19/2019. 01/14/2020 Cough and dyspnea improved post Tocilizumab, currently patient on BIPAP with O2 sat 90-94% - Current Medication List Current Medications: Active Medications Acetaminophen (Tylenol -) 650 mg PO Q6H PRN PRN Reason: PAIN Albuterol Sulfate (Ventolin Hfa Inhaler -) 2 puff IH Q4H PRN PRN Reason: SHORT OF BREATH/WHEEZING Alprazolam (Xanax -) 0.5 mg PO Q6H PRN PRN Reason: ANXIETY Alprazolam (Xanax -) 0.5 mg PO BID [facility] Last Admin: 01/14/20 11:07 Dose: 0.5 mg Documented by: Ascorbic Acid (Vitamin C -) 500 mg PO DAILY [facility] Last Admin: 01/14/20 10:49 Dose: 500 mg Documented by: Cholecalciferol (Vitamin D3 -) 1,000 unit PO DAILY [facility] Last Admin: 01/14/20 10:49 Dose: 1,000 unit Documented by: Enoxaparin Sodium (Lovenox -) 90 mg SQ BID [facility] Last Admin: 01/14/20 10:46 Dose: 90 mg Documented by: Lactobacillus Acidophilus (Bacid -) 1 tab PO DAILY [facility] Last Admin: 01/14/20 10:46 Dose: 1 tab Documented by: Methylprednisolone Sodium Succinate (Solu-Medrol -) 30 mg IVPUSH DAILY [facility] Last Admin: 01/14/20 10:44 Dose: 30 mg Documented by: Metoprolol Succinate (Toprol Xl -) 12.5 mg PO DAILY [facility] Last Admin: 01/14/20 10:47 Dose: 12.5 mg Documented by: Nystatin (Nystop Powder -) 1 applic TP DAILY [facility] Last Admin: 01/14/20 10:47 Dose: 1 applic Documented by: Pantoprazole Sodium (Protonix -) 40 mg PO DAILY [facility] Last Admin: 01/14/20 10:47 Dose: 40 mg Documented by: Polyethylene Glycol (Miralax (For Daily Use) -) 17 gm PO Q24H PRN PRN Reason: CONSTIPATION Last Admin: 01/11/20 11:50 Dose: 17 gm Documented by: Zinc Sulfate (Orazinc -) 220 mg PO DAILY [facility] Last Admin: 01/14/20 10:47 Dose: 220 mg Documented by: - Objective Vital Signs: Vital Signs Temperature 98.3 F 01/14/20 05:53 Pulse Rate 121 H 01/14/20 05:53 Respiratory Rate 18 01/14/20 05:53 Blood Pressure 103/65 01/14/20 05:53 O2 Sat by Pulse Oximetry (%) 92 L 01/14/20 08:30 Constitutional: Yes: No Distress, Calm Neck: Yes: Supple Cardiovascular: Yes: Tachycardia Respiratory: Yes: Regular, Diminished, On BiPap, SOB Gastrointestinal: Yes: Normal Bowel Sounds, Soft, Abdomen, Obese Edema: No Labs: CBC, BMP 01/14/20 08:35 01/14/20 08:35 INR, PTT INR 1.25 (0.83-1.09) H 12/19/19 13:13 - ....Imaging EKG: Report Reviewed (Tele: ST) Assessment/Plan Problem List - Problems (1) Obesity Code(s): E66.9 - OBESITY, UNSPECIFIED (2) HTN (hypertension) Code(s): I10 - ESSENTIAL (PRIMARY) HYPERTENSION Qualifiers: Hypertension type: essential hypertension Qualified Code(s): I10 - Essential (primary) hypertension (3) NHL (non-Hodgkin's lymphoma) Code(s): C85.90 - NON-HODGKIN LYMPHOMA, UNSPECIFIED, UNSPECIFIED SITE (4) Anxiety Code(s): F41.9 - ANXIETY DISORDER, UNSPECIFIED (5) Acute respiratory failure with hypoxia Code(s): J96.01 - ACUTE RESPIRATORY FAILURE WITH HYPOXIA (6) COVID-19 Code(s): U07.1 - COVID POSITIVE (7) Sinus tachycardia Code(s): R00.0 - TACHYCARDIA, UNSPECIFIED Assessment/Plan 1. Acute hypoxic respiratory failure currently on NIPPV 2. (+) COVID 19 - pneumonitis 3. HTN 4. Non Hodgkins Lymphoma in remission 5. Sinus tachycardia; multiple contributers (including anxiety; respiratory distress; ? PE; CHF) 6. Leukocytosis, abnormal LFT, inflammatory markers and D dimer due to COVID 7. H/o DVT PLAN: 1.Pt feels symptomatically improved on Tocilizumab; f/u inflammatory markers. IV steroid taper with GI protection, Zinc; pt has refused plasma; consider Remdesivir. 2. Metoprolol 12.5 qd 3. Lovenox 90 mg Q12 (COVID; PE also being ruled out) 4. BD as needed 5. BIPAP and titrate FiO2 to keep SpO2 >90% 6. Consider CTA/given elevated d-dimer and h/o dvt's, continued sinus tachycardia. Pt's sister says pt had some reaction to "contrast" when she had a CT chest at [facility]; will try to obtain records. (On further discussion with one of pt's nurses, pt and sister apparently told medical intern last Thursday that there was not a true negative reaction to contrast, but that pt was highly anxious during the CT). 7. ECHO 01/13/20: normal LVEF; normal RV and RVEF. 8. COVID status reportedly being checked again. -
--- NOTE | 2020-01-14 11:29 | PN ---
Physical Exam: SUBJECTIVE: Patient seen and examined at the bedside, there were no acute events overnight. Pt states she is feeling better today. Still on NIPPV, O2 sats improved this morning to 99%, however later in the afternoon when she was being changed she started desatting into the 60s again. Pt still refusing plasma and does not want additional dose of tocilizumab. Will reach out to ICU team to evaluate patient as she is not improving and is at risk of decompensation. OBJECTIVE: Vital Signs Period Temp Pulse Resp BP Sys/Rivera Pulse Ox Last 24 Hr 98.0 F-98.4 F 93-135 18-22 96-128/62-79 91-93 GENERAL: The patient is awake, alert, and fully oriented, in no acute distress. HEAD: Normal with no signs of trauma. NECK: Trachea midline, full range of motion, supple. LUNGS: Diminised breath sounds bilaterally, no accessory muscle use. HEART: Regular rhythm, tachycardic, S1, S2 ABDOMEN: Soft, nontender, nondistended EXTREMITIES: 2+ pulses, warm, well-perfused, no edema. NEUROLOGICAL: Cranial nerves II through XII grossly intact Laboratory Results - last 24 hr 01/13/20 01/13/20 01/14/20 09:10 15:50 08:35 WBC RBC Hgb Hct MCV MCH MCHC RDW Plt Count MPV Neutrophils % (Manual) 61.9 Band Neutrophils % 2.4 Lymphocytes % (Manual) 7.1 L D Monocytes % (Manual) 6 Eosinophils % (Manual) 19.0 H Basophils % (Manual) 0.0 Myelocytes % (Man) 0 D Promyelocytes % (Man) 0 Blast Cells % (Manual) 0 Nucleated RBC % 1 H Metamyelocytes 0 D Hypochromia 0 Platelet Estimate Normal Polychromasia 1+ Poikilocytosis 1+ Anisocytosis 1+ Microcytosis 1+ Macrocytosis 0 Spherocytes 1+ Tear Drop Cells 1+ Ovalocytes 1+ D-Dimer Sodium 138 Potassium 4.0 Chloride 98 Carbon Dioxide 34 H Anion Gap 7 L BUN 9.3 Creatinine 0.6 Est GFR (CKD-EPI)AfAm 130.30 Est GFR (CKD-EPI)NonAf 112.42 Random Glucose 89 Calcium 9.5 Ferritin 826.6 H Total Bilirubin 0.6 AST 119 H ALT 331 H Alkaline Phosphatase 143 H LD Total 573 H C-Reactive Protein 0.7 H Total Protein 6.8 Albumin 3.4 Blood Type A POSITIVE Antibody Screen Negative 01/14/20 01/14/20 08:35 08:35 WBC 9.3 RBC 4.32 Hgb 13.5 Hct 39.7 MCV 91.9 MCH 31.2 MCHC 34.0 RDW 16.4 H Plt Count 269 MPV 8.0 Neutrophils % (Manual) Band Neutrophils % Lymphocytes % (Manual) Monocytes % (Manual) Eosinophils % (Manual) Basophils % (Manual) Myelocytes % (Man) Promyelocytes % (Man) Blast Cells % (Manual) Nucleated RBC % Metamyelocytes Hypochromia Platelet Estimate Polychromasia Poikilocytosis Anisocytosis Microcytosis Macrocytosis Spherocytes Tear Drop Cells Ovalocytes D-Dimer 1412 H Sodium Potassium Chloride Carbon Dioxide Anion Gap BUN Creatinine Est GFR (CKD-EPI)AfAm Est GFR (CKD-EPI)NonAf Random Glucose Calcium Ferritin Total Bilirubin AST ALT Alkaline Phosphatase LD Total C-Reactive Protein Total Protein Albumin Blood Type Antibody Screen Active Medications Generic Name Dose Route Start Last Admin Trade Name Freq PRN Reason Stop Dose Admin Acetaminophen 650 mg 12/28/19 15:59 Tylenol - PO Q6H PRN PAIN Albuterol Sulfate 2 puff 12/28/19 15:59 Ventolin Hfa Inhaler - IH Q4H PRN SHORT OF BREATH/WHEEZING Alprazolam 0.5 mg 01/09/20 10:20 Xanax - PO Q6H PRN ANXIETY Alprazolam 0.5 mg 01/09/20 10:20 01/14/20 11:07 Xanax - PO 0.5 mg BID DARIEL Administration Ascorbic Acid 500 mg 12/30/19 10:00 01/14/20 10:49 Vitamin C - PO 500 mg DAILY DARIEL Administration Cholecalciferol 1,000 unit 12/30/19 10:00 01/14/20 10:49 Vitamin D3 - PO 1,000 unit DAILY DARIEL Administration Enoxaparin Sodium 90 mg 01/06/20 22:00 01/14/20 10:46 Lovenox - SQ 90 mg BID DARIEL Administration Lactobacillus Acidophilus 1 tab 12/29/19 10:00 01/14/20 10:46 Bacid - PO 1 tab DAILY DARIEL Administration Methylprednisolone Sodium Succinate 30 mg 01/12/20 11:17 01/14/20 10:44 Solu-Medrol - IVPUSH 30 mg DAILY DARIEL Administration Metoprolol Succinate 12.5 mg 01/12/20 15:06 01/14/20 10:47 Toprol Xl - PO 12.5 mg DAILY DARIEL Administration Nystatin 1 applic 01/13/20 10:00 01/14/20 10:47 Nystop Powder - TP 1 applic DAILY DARIEL Administration Pantoprazole Sodium 40 mg 12/29/19 10:00 01/14/20 10:47 Protonix - PO 40 mg DAILY DARIEL Administration Polyethylene Glycol 17 gm 01/09/20 17:43 01/11/20 11:50 Miralax (For Daily Use) - PO 17 gm Q24H PRN Administration CONSTIPATION Zinc Sulfate 220 mg 12/29/19 10:00 01/14/20 10:47 Orazinc - PO 220 mg DAILY DAREIL Administration ASSESSMENT/PLAN: [address] [facility] Hodgkins' lymphoma s/p radiation and stem cell transplant (2011), appendectomy, cholecystectomy, anxiety, who presents with acute respiratory failure 2/2/ to COVID infection 1) Acute hypoxic respiratory failure 2/2 COVID - Pt refused chest CTA - pt refused Plasma therapy, will attempt to discuss with patient again today> now states she is amenable to taking it if she does not improve on tocilizumab - s/p abx and tocilizumab - decrease solumedrol to 30 daily. Tapering Day 7. - Lovenox 90 BID until PE r/o - zinc, vitamin c, vitamin d - albuterol inhaler - monitor ferritin, LDH, CRP daily, improving. - maintain Sao2 >90% on cpap. Pt satting 85-> 93% on 100% FiO2 CPAP, wean as appropriate - Pulmonology consulted, Dr. Shepherd, appreciate recs: - continue empiric steroids - continue empiric anticoagulation - titrate FiO2 to keep SpO2 >90% - continue NIPPV - pulse oximetry monitoring - treat anxiety as ordered - Called ICU team to make them aware of patient. Per nursing, the patient desaturates into the 60s with any movement or when she removes her mask. Pt is refusing may forms of intervention but is at risk of decompensating on the floor. Would benefit from ICU care where nurses can keep a closer eye on her. 2) Hx of anxiety - Xanax 0.5 Q6H PRN, only requiring 0.25 yesterday - Xanax 0.5 BID - Psychiatry consulted, appreciate recs 3) Sinus Tachycardia - Possibly 2/2 anxiety - metoprolol 12.5 daily - Consulted cardiology, Dr. Vasquez, appreciate recommendations - Holter monitor 2011 for "palpitations" that showed high resting HR: Underlying rhythm sinus; average HR 98 bpm; maximum 150 bpm sinus tach; no arrhythmias. - F/u CTA/given elevated d-dimer and h/o dvt's, continued sinus tachycardia. Pt's sister says pt had some reaction to "contrast" when she had a CT chest at [facility]; will try to obtain records. Reaction possibly due to anxiety and not al lergic reaction DVT: Lovenox BID F: Oral hydration E: Monitor CMP N: full liquid diet Dispo: Monitor on Telemetry. Continue close watch. Visit type - Emergency Visit Emergency Visit: Yes ED Registration Date: 12/19/19 Care time: The patient presented to the Emergency Department on the above date and was hospitalized for further evaluation of their emergent condition. - New Patient This patient is new to me today: No - Critical Care Critical Care patient: No ATTENDING PHYSICIAN STATEMENT I saw and evaluated the patient. I reviewed the resident's note and discussed the case with the resident. I agree with the resident's findings and plan as documented. SUBJECTIVE: OBJECTIVE: ASSESSMENT AND PLAN:
--- NOTE | 2020-01-14 15:52 | PN ---
Progress Note (short form) - Note Progress Note: Awake on NIPPV support. Breathing has been stable but has plateaued. Intake & Output 01/11/20 01/12/20 01/13/20 01/14/20 23:59 23:59 23:59 23:59 Intake Total 1170 680 290 210 Output Total 853 800 Balance 317 -120 290 210 Weight 200 lb Last Vital Signs Temp Pulse Resp BP Pulse Ox 98.6 F 123 H 19 127/73 90 L 01/14/20 10:00 01/14/20 10:00 01/14/20 10:00 01/14/20 10:00 01/14/20 14:40 Last Vital Signs Temp Pulse Resp BP Pulse Ox 98.6 F 123 H 19 127/73 90 L 01/14/20 10:00 01/14/20 10:00 01/14/20 10:00 01/14/20 10:00 01/14/20 14:40 Constitutional: Yes: Awake and alert on NIPPV Eyes: Yes: WNL HENT: Yes: WNL Neck: Yes: WNL Cardiovascular: Yes: Regular Rate and Rhythm, S1, S2 Respiratory: Yes: Diminished Gastrointestinal: Yes: Normal Bowel Sounds, Soft Extremities: Yes: WNL Edema: No Labs: Laboratory Results - last 24 hr 01/13/20 01/14/20 01/14/20 15:50 08:35 08:35 WBC 9.3 RBC 4.32 Hgb 13.5 Hct 39.7 MCV 91.9 MCH 31.2 MCHC 34.0 RDW 16.4 H Plt Count 269 MPV 8.0 D-Dimer Sodium 138 Potassium 4.0 Chloride 98 Carbon Dioxide 34 H Anion Gap 7 L BUN 9.3 Creatinine 0.6 Est GFR (CKD-EPI)AfAm 130.30 Est GFR (CKD-EPI)NonAf 112.42 Random Glucose 89 Calcium 9.5 Ferritin 826.6 H Total Bilirubin 0.6 AST 119 H ALT 331 H Alkaline Phosphatase 143 H LD Total 573 H C-Reactive Protein 0.7 H Total Protein 6.8 Albumin 3.4 Blood Type A POSITIVE Antibody Screen Negative 01/14/20 08:35 WBC RBC Hgb Hct MCV MCH MCHC RDW Plt Count MPV D-Dimer 1412 H Sodium Potassium Chloride Carbon Dioxide Anion Gap BUN Creatinine Est GFR (CKD-EPI)AfAm Est GFR (CKD-EPI)NonAf Random Glucose Calcium Ferritin Total Bilirubin AST ALT Alkaline Phosphatase LD Total C-Reactive Protein Total Protein Albumin Blood Type Antibody Screen Problem List - Problems (1) COVID-19 Code(s): U07.1 - COVID POSITIVE (2) Acute respiratory failure with hypoxia Code(s): J96.01 - ACUTE RESPIRATORY FAILURE WITH HYPOXIA (3) Acute hypoxemic respiratory failure Code(s): J96.01 - ACUTE RESPIRATORY FAILURE WITH HYPOXIA (4) HTN (hypertension) Code(s): I10 - ESSENTIAL (PRIMARY) HYPERTENSION Qualifiers: Hypertension type: essential hypertension Qualified Code(s): I10 - Essenti al (primary) hypertension (5) Obesity Code(s): E66.9 - OBESITY, UNSPECIFIED (6) Suspected COVID-19 virus infection Code(s): R68.89 - OTHER GENERAL SYMPTOMS AND SIGNS Assessment/Plan Acute Hypoxic Respiratory Failure COVID Pneumonia ARDS Septic Shock resolved Elevated LFTs h/o Hodgkins Lymphoma h/o DVTs - refused convalescent plasma - completed antibiotics - completed plaquenil course - Steroids - empiric anticoagulation - continue CPAP - titrate FiO2 to keep SpO2 >90% - pulse oximetry monitoring - (?) Stem cells : will address with patient Dr Andrews
--- NOTE | 2020-01-14 16:58 | CONSULT ---
Consultation: REQUESTING PROVIDER: Dr. Nguyễn CONSULT REQUEST: We have been asked to medically evaluate this patient for hypoxemia, increased work of breathing. HISTORY OF PRESENT ILLNESS: 44 yo f w/ PMH lymphoma (treated, in remission 8yrs ago) who came into the ED c/o SOB. She was subsequently brought down to the ICU, placed on Hi Flow and ended up on 100% cpap as she was not able to tolerate high flow. She was transferred to floor for further monitoring. Her respiratory status has been consistent on 100% BiPap over the past 3 weeks. Per primary team, patient appears to have a higher work of breathing today. On interview, patient saturating well on BiPap at rest, but desaturates on speaking or moving to the mid to low 80's. Patient states that her shortness of breath has not changed recently and has not been getting better. After extensive discussion of the risks and benefits of the procedure, Patient states that she does not want to be intubated. Patient also continues to decline convalescent plasma. Patient states that she just received a bronchodilator treatment and feels better. REVIEW OF SYSTEMS: negative except for HPI. PHYSICAL EXAMINATION Vital Signs - 24 hr 01/13/20 01/13/20 01/13/20 18:00 21:00 22:00 Temperature 98.0 F 98.4 F Pulse Rate 135 H 121 H Respiratory 20 20 22 H Rate Blood Pressure 128/78 121/62 O2 Sat by Pulse 91 L Oximetry (%) 01/14/20 01/14/20 01/14/20 02:00 05:53 08:30 Temperature 98.3 F 98.3 F Pulse Rate 116 H 121 H Respiratory 19 18 Rate Blood Pressure 96/63 103/65 O2 Sat by Pulse 92 L Oximetry (%) 01/14/20 01/14/20 01/14/20 09:00 10:00 14:00 Temperature 98.6 F 98.5 F Pulse Rate 123 H 125 H Respiratory 19 21 H Rate Blood Pressure 127/73 129/75 O2 Sat by Pulse 94 L Oximetry (%) 01/14/20 01/14/20 14:40 16:26 Temperature Pulse Rate 132 H Respiratory Rate Blood Pressure O2 Sat by Pulse 90 L 93 L Oximetry (%) GENERAL: Awake, alert, and fully oriented, in mild respiratory distress. HEAD: Normal with no signs of trauma. LUNGS: Breath sounds equal, decreased breath sounds at the bases. No wheezing. HEART: Regular rate and rhythm, normal S1 and S2 without murmur, rub or gallop. ABDOMEN: Soft, nontender, not distended, normoactive bowel sounds, no guarding, no rebound, no masses. No hepatomegaly or splenomegaly. LOWER EXTREMITIES: 2+ pulses, warm, well-perfused. No calf tenderness. No peripheral edema. NEUROLOGICAL: Cranial nerves II-X intact. Normal speech. Laboratory Results - last 24 hr 01/13/20 01/14/20 01/14/20 15:50 08:35 08:35 WBC 9.3 RBC 4.32 Hgb 13.5 Hct 39.7 MCV 91.9 MCH 31.2 MCHC 34.0 RDW 16.4 H Plt Count 269 MPV 8.0 D-Dimer Sodium 138 Potassium 4.0 Chloride 98 Carbon Dioxide 34 H Anion Gap 7 L BUN 9.3 Creatinine 0.6 Est GFR (CKD-EPI)AfAm 130.30 Est GFR (CKD-EPI)NonAf 112.42 Random Glucose 89 Calcium 9.5 Ferritin 826.6 H Total Bilirubin 0.6 AST 119 H ALT 331 H Alkaline Phosphatase 143 H LD Total 573 H C-Reactive Protein 0.7 H Total Protein 6.8 Albumin 3.4 Blood Type A POSITIVE Antibody Screen Negative 01/14/20 08:35 WBC RBC Hgb Hct MCV MCH MCHC RDW Plt Count MPV D-Dimer 1412 H Sodium Potassium Chloride Carbon Dioxide Anion Gap BUN Creatinine Est GFR (CKD-EPI)AfAm Est GFR (CKD-EPI)NonAf Random Glucose Calcium Ferritin Total Bilirubin AST ALT Alkaline Phosphatase LD Total C-Reactive Protein Total Protein Albumin Blood Type Antibody Screen Active Medications Generic Name Dose Route Start Last Admin Trade Name Freq PRN Reason Stop Dose Admin Acetaminophen 650 mg 12/28/19 15:59 Tylenol - PO Q6H PRN PAIN Albuterol Sulfate 2 puff 12/28/19 15:59 Ventolin Hfa Inhaler - IH Q4H PRN SHORT OF BREATH/WHEEZING Alprazolam 0.5 mg 01/09/20 10:20 Xanax - PO Q6H PRN ANXIETY Alprazolam 0.5 mg 01/09/20 10:20 01/14/20 11:07 Xanax - PO 0.5 mg BID DARILE Administration Ascorbic Acid 500 mg 12/30/19 10:00 01/14/20 10:49 Vitamin C - PO 500 mg DAILY DARIEL Administration Cholecalciferol 1,000 unit 12/30/19 10:00 01/14/20 10:49 Vitamin D3 - PO 1,000 unit DAILY DARIEL Administration Enoxaparin Sodium 90 mg 01/06/20 22:00 01/14/20 10:46 Lovenox - SQ 90 mg BID DARIEL Administration Lactobacillus Acidophilus 1 tab 12/29/19 10:00 01/14/20 10:46 Bacid - PO 1 tab DAILY DARIEL Administration Methylprednisolone Sodium Succinate 30 mg 01/12/20 11:17 01/14/20 10:44 Solu-Medrol - IVPUSH 30 mg DAILY DARIEL Administration Metoprolol Succinate 12.5 mg 01/12/20 15:06 01/14/20 10:47 Toprol Xl - PO 12.5 mg DAILY DARIEL Administration Nystatin 1 applic 01/13/20 10:00 01/14/20 10:47 Nystop Powder - TP 1 applic DAILY DARIEL Administration Pantoprazole Sodium 40 mg 12/29/19 10:00 01/14/20 10:47 Protonix - PO 40 mg DAILY DARIEL Administration Polyethylene Glycol 17 gm 01/09/20 17:43 01/11/20 11:50 Miralax (For Daily Use) - PO 17 gm Q24H PRN Administration CONSTIPATION Zinc Sulfate 220 mg 12/29/19 10:00 01/14/20 10:47 Orazinc - PO 220 mg DAILY DARIEL Administration ASSESSMENT/PLAN: 44 yo f w/ PMH lymphoma (treated, in remission 8yrs ago) who came into the ED c/o SOB. ICU consulted for worsening work of breathing. #Neuro -Alert and oriented -no active issues #Pulmonary -Patient appears short of breath, desaturates with minimal movement. -Per nursing staff and per pulmonary, patient's respiratory status has had minimal changes in the past few weeks. -Patient saturates well on BiPap if she remains still -patient continues to decline further treatment with plasma -patient does not want to be intubated. #Cardio -patient hemodynamically stable #Dispo: -Patient's respiratory status seems stable at the time of evaluation -Patient declining any escalation of care at this time. For this reason, patient is unlikely to benefit from ICU level of care at this time. -Case d/w Dr. Andrews. Visit type - Emergency Visit Emergency Visit: Yes ED Registration Date: 12/19/19 Care time: The patient presented to the Emergency Department on the above date and was hospitalized for further evaluation of their emergent condition. - New Patient This patient is new to me today: Yes Date on this admission: 01/14/20 - Critical Care Critical Care patient: No ATTENDING PHYSICIAN STATEMENT I saw and evaluated the patient. I reviewed the resident's note and discussed the case with the resident. I agree with the resident's findings and plan as documented. SUBJECTIVE: OBJECTIVE: ASSESSMENT AND PLAN:
[2020-01-14] MEDS ORDERED: PT OWN MED DRAWER 7, Y5N ONE (19:30)
[2020-01-15] MEDS: ALPRAZolam 0.25 MG TABLET PO PRN (05:00)
[2020-01-15 08:24] LABS: HEMATOCRIT 39.5 % (32.4-45.2); HEMOGLOBIN 13.4 GM/dL (10.7-15.3); MCH 31.1 pg (25.7-33.7); MCHC 33.9 g/dl (32.0-36.0); MEAN CELL VOLUME 91.7 fl (80-96); MEAN PLT VOLUME 8.1 fl (7.5-11.1); PLATELET COUNT 235 K/MM3 (134-434); RBC 4.31 M/mm3 (3.60-5.2); RDW 16.7 % (11.6-15.6); WHITE BLOOD COUNT 9.1 K/mm3 (4.0-10.0)
--- NOTE | 2020-01-15 08:25 | PN ---
Teaching Attending Note Name of Resident: Layne Doss ATTENDING PHYSICIAN STATEMENT I saw and evaluated the patient. I reviewed the resident's note and discussed the case with the resident. I agree with the resident's findings and plan as documented. SUBJECTIVE: continues to have labored breathing on Cpap, evaluated by ICU team last night . OBJECTIVE: Vital Signs Temperature 98.2 F 01/15/20 06:00 Pulse Rate 124 H 01/15/20 06:00 Respiratory Rate 22 H 01/15/20 06:00 Blood Pressure 106/78 01/15/20 06:00 O2 Sat by Pulse Oximetry (%) 90 L 01/14/20 21:00 pe: PER resident's note CBCD WBC 9.3 K/mm3 (4.0-10.0) 01/14/20 08:35 RBC 4.32 M/mm3 (3.60-5.2) 01/14/20 08:35 Hgb 13.5 GM/dL (10.7-15.3) 01/14/20 08:35 Hct 39.7 % (32.4-45.2) 01/14/20 08:35 MCV 91.9 fl (80-96) 01/14/20 08:35 MCHC 34.0 g/dl (32.0-36.0) 01/14/20 08:35 RDW 16.4 % (11.6-15.6) H 01/14/20 08:35 Plt Count 269 K/MM3 (134-434) 01/14/20 08:35 MPV 8.0 fl (7.5-11.1) 01/14/20 08:35 CMP Sodium 138 mmol/L (136-145) 01/14/20 08:35 Potassium 4.0 mmol/L (3.5-5.1) 01/14/20 08:35 Chloride 98 mmol/L (98-107) 01/14/20 08:35 Carbon Dioxide 34 mmol/L (21-32) H 01/14/20 08:35 Anion Gap 7 MMOL/L (8-16) L 01/14/20 08:35 BUN 9.3 mg/dL (7-18) 01/14/20 08:35 Creatinine 0.6 mg/dL (0.55-1.3) 01/14/20 08:35 Random Glucose 89 mg/dL (74-106) 01/14/20 08:35 Calcium 9.5 mg/dL (8.5-10.1) 01/14/20 08:35 Total Bilirubin 0.6 mg/dL (0.2-1) 01/14/20 08:35 AST 119 U/L (15-37) H 01/14/20 08:35 ALT 331 U/L (13-61) H 01/14/20 08:35 Alkaline Phosphatase 143 U/L (45-117) H 01/14/20 08:35 Total Protein 6.8 g/dl (6.4-8.2) 01/14/20 08:35 Albumin 3.4 g/dl (3.4-5.0) 01/14/20 08:35 CARDIAC ENZYMES Creatine Kinase 32 U/L (26-192) 12/29/19 07:10 Troponin I < 0.02 ng/ml (0.00-0.05) 12/19/19 13:13 Current Medications Generic Name Dose Route Start Last Admin Trade Name Freq PRN Reason Stop Dose Admin Acetaminophen 650 mg 12/28/19 15:59 Tylenol - PO Q6H PRN PAIN Albuterol Sulfate 2 puff 12/28/19 15:59 Ventolin Hfa Inhaler - IH Q4H PRN SHORT OF BREATH/WHEEZING Alprazolam 0.5 mg 01/09/20 10:20 01/15/20 05:00 Xanax - PO 0.5 mg Q6H PRN Administration ANXIETY Alprazolam 0.5 mg 01/09/20 10:20 01/14/20 22:21 Xanax - PO 0.5 mg BID DARIEL Administration Ascorbic Acid 500 mg 12/30/19 10:00 01/14/20 10:49 Vitamin C - PO 500 mg DAILY DARIEL Administration Cholecalciferol 1,000 unit 12/30/19 10:00 01/14/20 10:49 Vitamin D3 - PO 1,000 unit DAILY DARIEL Administration Enoxaparin Sodium 90 mg 01/06/20 22:00 01/14/20 22:21 Lovenox - SQ 90 mg BID DARIEL Administration Lactobacillus Acidophilus 1 tab 12/29/19 10:00 01/14/20 10:46 Bacid - PO 1 tab DAILY DARIEL Administration Methylprednisolone Sodium Succinate 30 mg 01/12/20 11:17 01/14/20 10:44 Solu-Medrol - IVPUSH 30 mg DAILY DARIEL Administration Metoprolol Succinate 12.5 mg 01/12/20 15:06 01/14/20 10:47 Toprol Xl - PO 12.5 mg DAILY DARIEL Administration Nystatin 1 applic 01/13/20 10:00 01/14/20 10:47 Nystop Powder - TP 1 applic DAILY DARIEL Administration Pantoprazole Sodium 40 mg 12/29/19 10:00 01/14/20 10:47 Protonix - PO 40 mg DAILY DARIEL Administration Polyethylene Glycol 17 gm 01/09/20 17:43 01/11/20 11:50 Miralax (For Daily Use) - PO 17 gm Q24H PRN Administration CONSTIPATION Zinc Sulfate 220 mg 12/29/19 10:00 01/14/20 10:47 Orazinc - PO 220 mg DAILY DARIEL Administration Home Medications Medication Instructions Recorded Cetirizine HCl 10 mg PO DAILY 12/29/19 traZODone HCL [Trazodone HCl] 50 mg PO HS 12/29/19 Microbiology 12/20/19 10:35 Blood - Peripheral Venous Blood Culture - Final NO GROWTH AFTER 5 DAYS INCUBATION 12/21/19 05:24 Sputum - Expectorated Gram Stain - Final 12/21/19 05:24 Sputum - Expectorated Sputum Culture - Final NORMAL RESPIRATORY CRISSY 12/20/19 22:15 Urine - Urine Clean Catch Legionella Antigen - Final 12/20/19 22:15 Urine - Urine Clean Catch Streptococcus pneumoniae Antigen (M - Final Laboratory Tests 01/13/20 01/13/20 01/13/20 07:28 07:28 09:10 D-Dimer 1643 H Magnesium 1.8 Ferritin 784.3 H AST 81 H ALT 270 H Alkaline Phosphatase 150 H LD Total C-Reactive Protein 1.0 H 01/14/20 01/14/20 01/15/20 08:35 08:35 06:42 D-Dimer 1412 H Magnesium Ferritin 826.6 H 745.8 H AST 119 H 105 H ALT 331 H 321 H Alkaline Phosphatase 143 H 130 H LD Total 573 H 550 H C-Reactive Protein 0.7 H 0.4 H ASSESSMENT AND PLAN: Patient is a 44yof with PMhx of lymphoma, DVT who presented with myalgia and was found to have acute hypoxic resp failure due to COVID 19 # COVID 19 infection : patient's markers are trending down now, s/p Tocilizumab 8mg/kg. s/p plaquenil. Declined plasma, continues to refuse plasma and repeat dose of Tocilizumab, refuses CTA. discussed with ICU , if deteriorates further will transfer to ICU , patient was evaluated by ICU team. # Acute hypoxic resp failure due to Covid 19: cont CPAP , patient declined CTA, continue CPAP, titrate FiO2 to keep SpO2 >90% # B/l PNA due to covid # Anxiety continue xanax # Sinus tachy in setting of anxiety continue anxiolytics on a low dose # S/p septic shock # Transaminitis continues to trend up due to COVID #leukocytosis due to steroids. day 21 of steroids. cont taper: 30 mg IV daily now # Hx of [place] Lymphoma #Hx of DVT DVT px: lovenox 90mg bid solu medrol 30mg iv will continue to trend the markers. continue to monitor the saturation (?) Stem cells : as per Pulm. patient agreed for covalesent plasma
[2020-01-15 08:29] LABS: ALBUMIN 3.3 g/dl (3.4-5.0); BILIRUBIN,TOTAL 0.5 mg/dL (0.2-1); BLOOD UREA NITROGEN 7.5 mg/dL (7-18); CALCIUM 8.9 mg/dL (8.5-10.1); CREATININE 0.5 mg/dL (0.55-1.3); POTASSIUM 3.5 mmol/L (3.5-5.1); TOT PROT 6.1 g/dl (6.4-8.2)
[2020-01-15] MEDS: ASCORBIC ACID 500 MG TABLET (FP) PO SCH (10:14)
[2020-01-15] MEDS: PANTOPRAZOLE 40 MG TABLET PO SCH (10:14)
[2020-01-15] MEDS: ENOXAPARIN NA (PORCINE) 100 MG/1 ML DISP.SYRIN SQ SCH ×2 (10:14→21:33)
[2020-01-15] MEDS: CHOLECALCIFEROL (VIT D3) 1,000 UNIT (25 MCG) TABLET PO SCH (10:14)
[2020-01-15] MEDS: LACTOBACILLUS ACIDOPHILUS 1 TABLET PO SCH (10:14)
[2020-01-15] MEDS: ZINC SULFATE 220 MG CAPSULE (FP) PO SCH (10:15)
[2020-01-15] MEDS: methylPREDNISolone NA SUCC 40 MG/1 ML VIAL IVPUSH SCH (10:15)
[2020-01-15] MEDS: NYSTATIN POWDER 100,000 UNITS/GM - 15 GM TOPICAL POWDER TP SCH (10:15)
[2020-01-15] MEDS: ALPRAZolam 0.25 MG TABLET PO SCH ×2 (10:18→21:42)
[2020-01-15] MEDS: metoPROLOL SUCCINATE 25 MG TAB.SR.24H (FP) PO SCH (10:18)
--- NOTE | 2020-01-15 12:24 | PN ---
Progress Note, Physician Chief Complaint: Coverage for Dr. Monterroso History of Present Illness: Chief Complaint: Pt A&OX3; on BIPAP; feels "much better" (less SOB since starting to bring up clear phlegm, which she attributes to being on a new IV medication; no palpitations or chest pain). Refused plasma, because she feels the present medications are now helping her. History of Present Illness: 44 year old woman with PMH Hodgkins' lymphoma X3 s/p radiation and stem cell transplant in 2012, not on active treatment, in remission x 8 yrs, appendectomy, cholecystectomy, anxiety, obesity, presenting with SOB and myalgias. States that she has felt ill for the past 10 days with myalgias and malaise, but over the past 5 days, she has had progressively worsening SOB and SONG, associated with cough, loss of appetite, and fevers/chills. 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 Sister is a known COVID positive. Pt COVID-19 detected 12/19/2019. 01/14/2020 Cough and dyspnea improved post Tocilizumab, currently patient on BIPAP with O2 sat 90-94% 01/15/2020 Patient desats to 60-70% and c/o SOB, while eating and turning for care, does not tolerate any activity. HR 120-130s on tele. on BIPAP with O2 sat 90% - Current Medication List Current Medications: Active Medications Acetaminophen (Tylenol -) 650 mg PO Q6H PRN PRN Reason: PAIN Albuterol Sulfate (Ventolin Hfa Inhaler -) 2 puff IH Q4H PRN PRN Reason: SHORT OF BREATH/WHEEZING Alprazolam (Xanax -) 0.5 mg PO Q6H PRN PRN Reason: ANXIETY Last Admin: 01/15/20 05:00 Dose: 0.5 mg Documented by: Alprazolam (Xanax -) 0.5 mg PO BID [facility] Last Admin: 01/15/20 10:18 Dose: 0.5 mg Documented by: Ascorbic Acid (Vitamin C -) 500 mg PO DAILY [facility] Last Admin: 01/15/20 10:14 Dose: 500 mg Documented by: Cholecalciferol (Vitamin D3 -) 1,000 unit PO DAILY [facility] Last Admin: 05/10/20 10:14 Dose: 1,000 unit Documented by: Enoxaparin Sodium (Lovenox -) 90 mg SQ BID [facility] Last Admin: 01/15/20 10:14 Dose: 90 mg Documented by: Lactobacillus Acidophilus (Bacid -) 1 tab PO DAILY [facility] Last Admin: 01/15/20 10:14 Dose: 1 tab Documented by: Methylprednisolone Sodium Succinate (Solu-Medrol -) 30 mg IVPUSH DAILY [facility] Last Admin: 01/15/20 10:15 Dose: 30 mg Documented by: Metoprolol Succinate (Toprol Xl -) 12.5 mg PO DAILY [facility] Last Admin: 01/15/20 10:18 Dose: 12.5 mg Documented by: Nystatin (Nystop Powder -) 1 applic TP DAILY [facility] Last Admin: 01/15/20 10:15 Dose: 1 applic Documented by: Pantoprazole Sodium (Protonix -) 40 mg PO DAILY [facility] Last Admin: 01/15/20 10:14 Dose: 40 mg Documented by: Polyethylene Glycol (Miralax (For Daily Use) -) 17 gm PO Q24H PRN PRN Reason: CONSTIPATION Last Admin: 01/11/20 11:50 Dose: 17 gm Documented by: Zinc Sulfate (Orazinc -) 220 mg PO DAILY [facility] Last Admin: 01/15/20 10:15 Dose: 220 mg Documented by: - Objective Vital Signs: Vital Signs Temperature 98.4 F 01/15/20 10:00 Pulse Rate 128 H 01/15/20 10:00 Respiratory Rate 23 H 01/15/20 10:00 Blood Pressure 119/73 01/15/20 10:00 O2 Sat by Pulse Oximetry (%) 84 L 01/15/20 09:30 Constitutional: Yes: No Distress, Calm Neck: Yes: Supple Cardiovascular: Yes: Tachycardia Respiratory: Yes: On BiPap, SOB Gastrointestinal: Yes: Soft, Hypoactive Bowel Sounds Edema: No Labs: CBC, BMP 01/15/20 06:42 01/15/20 06:42 INR, PTT INR 1.25 (0.83-1.09) H 12/19/19 13:13 - ....Imaging Chest X-ray: Report Reviewed (Bilateral infiltrates) EKG: Report Reviewed (Tele: SR) Assessment/Plan Problem List - Problems (1) Obesity Code(s): E66.9 - OBESITY, UNSPECIFIED (2) HTN (hypertension) Code(s): I10 - ESSENTIAL (PRIMARY) HYPERTENSION Qualifiers: Hypertension type: essential hypertension Qualified Code(s): I10 - Essential (primary) hypertension (3) NHL (non-Hodgkin's lymphoma) Code(s): C85.90 - NON-HODGKIN LYMPHOMA, UNSPECIFIED, UNSPECIFIED SITE (4) Anxiety Code(s): F41.9 - ANXIETY DISORDER, UNSPECIFIED (5) Acute respiratory failure with hypoxia Code(s): J96.01 - ACUTE RESPIRATORY FAILURE WITH HYPOXIA (6) COVID-19 Code(s): U07.1 - COVID POSITIVE (7) Sinus tachycardia Code(s): R00.0 - TACHYCARDIA, UNSPECIFIED Assessment/Plan 1. Acute hypoxic respiratory failure currently on NIPPV 2. (+) COVID 19 - pneumonitis 3. HTN 4. Non Hodgkins Lymphoma in remission 5. Sinus tachycardia; multiple contributers (including anxiety; respiratory distress; ? PE; CHF) 6. Leukocytosis, abnormal LFT, inflammatory markers and D dimer due to COVID 7. H/o DVT PLAN: 1.Pt feels symptomatically improved on Tocilizumab; f/u inflammatory markers. IV steroid taper with GI protection, Zinc; pt has refused plasma; consider Remde sivir. 2. Metoprolol 12.5 qd 3. Lovenox 90 mg Q12 (COVID; PE also being ruled out) 4. BD as needed 5. BIPAP and titrate FiO2 to keep SpO2 >90% 6. Consider CTA/given elevated d-dimer and h/o dvt's, continued sinus tachycardia. Pt's sister says pt had some reaction to "contrast" when she had a CT chest at [facility]; will try to obtain records. (On further discussion with one of pt's nurses, pt and sister apparently told bilingual medical receptionist last Thursday that there was not a true negative reaction to contrast, but that pt was highly anxious during the CT). 7. ECHO 01/13/20: normal LVEF; normal RV and RVEF. 8. COVID status reportedly being checked again. -
--- NOTE | 2020-01-15 13:56 | PN ---
Progress Note (short form) - Note Progress Note: Awake on NIPPV support. Breathing has plateaued. Still with high level of WOB. Intake & Output 01/12/20 01/13/20 01/14/20 01/15/20 23:59 23:59 23:59 23:59 Intake Total 680 290 690 100 Output Total 800 Balance -120 290 690 100 Weight 200 lb Last Vital Signs Temp Pulse Resp BP Pulse Ox 98.4 F 128 H 23 H 119/73 84 L 01/15/20 10:00 01/15/20 10:00 01/15/20 10:00 01/15/20 10:00 01/15/20 09:30 Active Medications Acetaminophen (Tylenol -) 650 mg PO Q6H PRN PRN Reason: PAIN Albuterol Sulfate (Ventolin Hfa Inhaler -) 2 puff IH Q4H PRN PRN Reason: SHORT OF BREATH/WHEEZING Alprazolam (Xanax -) 0.5 mg PO Q6H PRN PRN Reason: ANXIETY Last Admin: 01/15/20 05:00 Dose: 0.5 mg Documented by: Alprazolam (Xanax -) 0.5 mg PO BID [facility] Last Admin: 01/15/20 10:18 Dose: 0.5 mg Documented by: Ascorbic Acid (Vitamin C -) 500 mg PO DAILY [facility] Last Admin: 01/15/20 10:14 Dose: 500 mg Documented by: Cholecalciferol (Vitamin D3 -) 1,000 unit PO DAILY [facility] Last Admin: 01/15/20 10:14 Dose: 1,000 unit Documented by: Enoxaparin Sodium (Lovenox -) 90 mg SQ BID [facility] Last Admin: 01/15/20 10:14 Dose: 90 mg Documented by: Lactobacillus Acidophilus (Bacid -) 1 tab PO DAILY [facility] Last Admin: 01/15/20 10:14 Dose: 1 tab Documented by: Methylprednisolone Sodium Succinate (Solu-Medrol -) 30 mg IVPUSH DAILY [facility] Last Admin: 01/15/20 10:15 Dose: 30 mg Documented by: Metoprolol Succinate (Toprol Xl -) 12.5 mg PO DAILY [facility] Last Admin: 01/15/20 10:18 Dose: 12.5 mg Documented by: Nystatin (Nystop Powder -) 1 applic TP DAILY [facility] Last Admin: 01/15/20 10:15 Dose: 1 applic Documented by: Pantoprazole Sodium (Protonix -) 40 mg PO DAILY [facility] Last Admin: 01/15/20 10:14 Dose: 40 mg Documented by: Polyethylene Glycol (Miralax (For Daily Use) -) 17 gm PO Q24H PRN PRN Reason: CONSTIPATION Last Admin: 01/11/20 11:50 Dose: 17 gm Documented by: Zinc Sulfate (Orazinc -) 220 mg PO DAILY [facility] Last Admin: 01/15/20 10:15 Dose: 220 mg Documented by: Constitutional: Yes: Awake and alert on NIPPV Eyes: Yes: WNL HENT: Yes: WNL Neck: Yes: WNL Cardiovascular: Yes: Regular Rate and Rhythm, S1, S2 Respiratory: Yes: Diminished Gastrointestinal: Yes: Normal Bowel Sounds, Soft Extremities: Yes: WNL Edema: No Labs: Laboratory Results - last 24 hr 01/15/20 01/15/20 01/15/20 06:42 06:42 11:00 WBC 9.1 RBC 4.31 Hgb 13.4 Hct 39.5 MCV 91.7 MCH 31.1 MCHC 33.9 RDW 16.7 H Plt Count 235 MPV 8.1 D-Dimer 1453 H Sodium 142 Potassium 3.5 Chloride 104 Carbon Dioxide 30 Anion Gap 9 BUN 7.5 Creatinine 0.5 L Est GFR (CKD-EPI)AfAm 138.36 Est GFR (CKD-EPI)NonAf 119.38 Random Glucose 81 Calcium 8.9 Ferritin 745.8 H Total Bilirubin 0.5 AST 105 H ALT 321 H Alkaline Phosphatase 130 H LD Total 550 H C-Reactive Protein 0.4 H Total Protein 6.1 L Albumin 3.3 L Problem List - Problems (1) COVID-19 Code(s): U07.1 - COVID POSITIVE (2) Acute respiratory failure with hypoxia Code(s): J96.01 - ACUTE RESPIRATORY FAILURE WITH HYPOXIA (3) Acute hypoxemic respiratory failure Code(s): J96.01 - ACUTE RESPIRATORY FAILURE WITH HYPOXIA (4) HTN (hypertension) Code(s): I10 - ESSENTIAL (PRIMARY) HYPERTENSION Qualifiers: Hypertension type: essential hypertension Qualified Code(s): I10 - Essential (primary) hypertension (5) Obesity Code(s): E66.9 - OBESITY, UNSPECIFIED (6) Suspected COVID-19 virus infection Code(s): R68.89 - OTHER GENERAL SYMPTOMS AND SIGNS Assessment/Plan Acute Hypoxic Respiratory Failure COVID Pneumonia ARDS Septic Shock resolved Elevated LFTs h/o Hodgkins Lymphoma h/o DVTs - Patient has agreed to convalescent plasma - completed antibiotics - completed plaquenil course - Steroids - empiric anticoagulation - continue NIPPV support - titrate FiO2 to keep SpO2 >90% - pulse oximetry monitoring - (?) Stem cells : she will consider Dr Andrews
--- NOTE | 2020-01-15 15:04 | PN ---
Physical Exam: SUBJECTIVE: Patient seen and examined at the bedside. Wearing her NIPPV mask but stil nly saturating in the 80s. Discussed plasma with patient today and she agrees that since she is not improving on tocilizumab that she should try plasma infusion. Pt signed consent papers today. OBJECTIVE: Vital Signs Period Temp Pulse Resp BP Sys/Rivera Pulse Ox Last 24 Hr 98.1 F-99.1 F 120-132 22-23 105-121/73-89 84-93 GENERAL: The patient is awake, alert, and fully oriented, in no acute distress. HEAD: Normal with no signs of trauma. NECK: Trachea midline, full range of motion, supple. LUNGS: Diminised breath sounds bilaterally, no accessory muscle use. HEART: Regular rhythm, tachycardic, S1, S2 ABDOMEN: Soft, nontender, nondistended EXTREMITIES: 2+ pulses, warm, well-perfused, no edema. NEUROLOGICAL: Cranial nerves II through XII grossly intact Laboratory Results - last 24 hr 01/15/20 01/15/20 01/15/20 06:42 06:42 11:00 WBC 9.1 RBC 4.31 Hgb 13.4 Hct 39.5 MCV 91.7 MCH 31.1 MCHC 33.9 RDW 16.7 H Plt Count 235 MPV 8.1 D-Dimer 1453 H Sodium 142 Potassium 3.5 Chloride 104 Carbon Dioxide 30 Anion Gap 9 BUN 7.5 Creatinine 0.5 L Est GFR (CKD-EPI)AfAm 138.36 Est GFR (CKD-EPI)NonAf 119.38 Random Glucose 81 Calcium 8.9 Ferritin 745.8 H Total Bilirubin 0.5 AST 105 H ALT 321 H Alkaline Phosphatase 130 H LD Total 550 H C-Reactive Protein 0.4 H Total Protein 6.1 L Albumin 3.3 L Active Medications Generic Name Dose Route Start Last Admin Trade Name Freq PRN Reason Stop Dose Admin Acetaminophen 650 mg 12/28/19 15:59 Tylenol - PO Q6H PRN PAIN Albuterol Sulfate 2 puff 12/28/19 15:59 Ventolin Hfa Inhaler - IH Q4H PRN SHORT OF BREATH/WHEEZING Alprazolam 0.5 mg 01/09/20 10:20 01/15/20 05:00 Xanax - PO 0.5 mg Q6H PRN Administration ANXIETY Alprazolam 0.5 mg 01/09/20 10:20 01/15/20 10:18 Xanax - PO 0.5 mg BID [facility] Administration Ascorbic Acid 500 mg 12/30/19 10:00 01/15/20 10:14 Vitamin C - PO 500 mg DAILY [facility] Administration Cholecalciferol 1,000 unit 12/30/19 10:00 01/15/20 10:14 Vitamin D3 - PO 1,000 unit DAILY [facility] Administration Enoxaparin Sodium 90 mg 01/06/20 22:00 01/15/20 10:14 Lovenox - SQ 90 mg BID [facility] Administration Lactobacillus Acidophilus 1 tab 12/29/19 10:00 01/15/20 10:14 Bacid - PO 1 tab DAILY [facility] Administration Methylprednisolone Sodium Succinate 30 mg 01/12/20 11:17 01/15/20 10:15 Solu-Medrol - IVPUSH 30 mg DAILY [facility] Administration Metoprolol Succinate 12.5 mg 01/12/20 15:06 01/15/20 10:18 Toprol Xl - PO 12.5 mg DAILY [facility] Administration Nystatin 1 applic 01/13/20 10:00 01/15/20 10:15 Nystop Powder - TP 1 applic DAILY [facility] Administration Pantoprazole Sodium 40 mg 12/29/19 10:00 01/15/20 10:14 Protonix - PO 40 mg DAILY [facility] Administration Polyethylene Glycol 17 gm 01/09/20 17:43 01/11/20 11:50 Miralax (For Daily Use) - PO 17 gm Q24H PRN Administration CONSTIPATION Zinc Sulfate 220 mg 12/29/19 10:00 01/15/20 10:15 Orazinc - PO 220 mg DAILY [facility] Administration ASSESSMENT/PLAN: 44F [facility] Hodgkins' lymphoma s/p radiation and stem cell transplant (2011), appendectomy, cholecystectomy, anxiety, who presents with acute respiratory failure 2/2/ to COVID infection 1) Acute hypoxic respiratory failure 2/2 COVID - Pt refused chest CTA - pt now amenable to plasma infusion, pt signed consent today - s/p abx and tocilizumab - decrease solumedrol to 30 daily. Tapering Day 8. - Lovenox 90 BID until PE r/o - zinc, vitamin c, vitamin d - albuterol inhaler - monitor ferritin, LDH, CRP daily, improving. - maintain Sao2 >90% on cpap. Pt satting 85-> 93% on 100% FiO2 CPAP, wean as appropriate - Pulmonology consulted, Dr. Shepherd, appreciate recs: - continue empiric steroids - continue empiric anticoagulation - titrate FiO2 to keep SpO2 >90% - continue NIPPV - pulse oximetry monitoring - treat anxiety as ordered 2) Hx of anxiety - Xanax 0.5 Q6H PRN, only requiring 0.25 yesterday - Xanax 0.5 BID - Psychiatry consulted, appreciate recs 3) Sinus Tachycardia - Possibly 2/2 anxiety - metoprolol 12.5 daily - Consulted cardiology, Dr. Vasquez, appreciate recommendations - Holter monitor 2011 for "palpitations" that showed high resting HR: Underlying rhythm sinus; average HR 98 bpm; maximum 150 bpm sinus tach; no arrhythmias. - F/u CTA/given elevated d-dimer and h/o dvt's, continued sinus tachycardia. Pt's sister says pt had some reaction to "contrast" when she had a CT chest at [facility]; will try to obtain records. Reaction possibly due to anxiety and not allergic reaction DVT: Lovenox BID F: Oral hydration E: Monitor CMP N: full liquid diet Dispo: Monitor on Telemetry. Continue close watch. Visit type - Emergency Visit Emergency Visit: Yes ED Registration Date: 12/19/19 Care time: The patient presented to the Emergency Department on the above date and was hospitalized for further evaluation of their emergent condition. - New Patient This patient is new to me today: Yes Date on this admission: 01/17/20 - Critical Care Critical Care patient: No ATTENDING PHYSICIAN STATEMENT I saw and evaluated the patient. I reviewed the resident's note and discussed the case with the resident. I agree with the resident's findings and plan as documented. SUBJECTIVE: OBJECTIVE: ASSESSMENT AND PLAN:
[2020-01-16] MEDS: ALPRAZolam 0.25 MG TABLET PO PRN ×2 (03:30→17:33)
--- NOTE | 2020-01-16 07:14 | PN ---
Physical Exam: SUBJECTIVE: Patient seen and examined. Pt refused plasma last night because she wanted to get it after AM rounds while doctors are here. OBJECTIVE: Vital Signs Period Temp Pulse Resp BP Sys/Rivera Pulse Ox Last 24 Hr 97.5 F-99.1 F 116-129 22-23 107-136/62-84 84-92 GENERAL: The patient is awake, alert, and fully oriented, in no acute distress on CPAP machine. LUNGS: decreased air entry b/l HEART: Regular rate and rhythm, S1, S2 without murmur, rub or gallop. ABDOMEN: Soft, nontender, nondistended. EXTREMITIES: 2+ pulses, warm, well-perfused, no edema. Laboratory Results - last 24 hr 01/15/20 01/15/20 01/15/20 06:42 06:42 11:00 WBC 9.1 RBC 4.31 Hgb 13.4 Hct 39.5 MCV 91.7 MCH 31.1 MCHC 33.9 RDW 16.7 H Plt Count 235 MPV 8.1 D-Dimer 1453 H Sodium 142 Potassium 3.5 Chloride 104 Carbon Dioxide 30 Anion Gap 9 BUN 7.5 Creatinine 0.5 L Est GFR (CKD-EPI)AfAm 138.36 Est GFR (CKD-EPI)NonAf 119.38 Random Glucose 81 Calcium 8.9 Ferritin 745.8 H Total Bilirubin 0.5 AST 105 H ALT 321 H Alkaline Phosphatase 130 H LD Total 550 H C-Reactive Protein 0.4 H Total Protein 6.1 L Albumin 3.3 L Blood Type Antibody Screen 01/15/20 15:40 WBC RBC Hgb Hct MCV MCH MCHC RDW Plt Count MPV D-Dimer Sodium Potassium Chloride Carbon Dioxide Anion Gap BUN Creatinine Est GFR (CKD-EPI)AfAm Est GFR (CKD-EPI)NonAf Random Glucose Calcium Ferritin Total Bilirubin AST ALT Alkaline Phosphatase LD Total C-Reactive Protein Total Protein Albumin Blood Type A POSITIVE Antibody Screen Negative Active Medications Generic Name Dose Route Start Last Admin Trade Name Freq PRN Reason Stop Dose Admin Acetaminophen 650 mg 12/28/19 15:59 Tylenol - PO Q6H PRN PAIN Albuterol Sulfate 2 puff 12/28/19 15:59 Ventolin Hfa Inhaler - IH Q4H PRN SHORT OF BREATH/WHEEZING Alprazolam 0.5 mg 01/09/20 10:20 01/16/20 03:30 Xanax - PO 0.5 mg Q6H PRN Administration ANXIETY Alprazolam 0.5 mg 01/09/20 10:20 01/15/20 21:42 Xanax - PO 0.5 mg BID [facility] Administration Ascorbic Acid 500 mg 12/30/19 10:00 01/15/20 10:14 Vitamin C - PO 500 mg DAILY [facility] Administration Cholecalciferol 1,000 unit 12/30/19 10:00 01/15/20 10:14 Vitamin D3 - PO 1,000 unit DAILY [facility] Administration Enoxaparin Sodium 90 mg 01/06/20 22:00 01/15/20 21:33 Lovenox - SQ 90 mg BID [facility] Administration Lactobacillus Acidophilus 1 tab 12/29/19 10:00 01/15/20 10:14 Bacid - PO 1 tab DAILY [facility] Administration Methylprednisolone Sodium Succinate 30 mg 01/12/20 11:17 01/15/20 10:15 Solu-Medrol - IVPUSH 30 mg DAILY [facility] Administration Metoprolol Succinate 12.5 mg 01/12/20 15:06 01/15/20 10:18 Toprol Xl - PO 12.5 mg DAILY [facility] Administration Nystatin 1 applic 01/13/20 10:00 01/15/20 10:15 Nystop Powder - TP 1 applic DAILY [facility] Administration Pantoprazole Sodium 40 mg 12/29/19 10:00 01/15/20 10:14 Protonix - PO 40 mg DAILY [facility] Administration Polyethylene Glycol 17 gm 01/09/20 17:43 01/11/20 11:50 Miralax (For Daily Use) - PO 17 gm Q24H PRN Administration CONSTIPATION Zinc Sulfate 220 mg 12/29/19 10:00 01/15/20 10:15 Orazinc - PO 220 mg DAILY [facility] Administration ASSESSMENT/PLAN: 44F [facility] Hodgkins' lymphoma s/p radiation and stem cell transplant (2011), appendectomy, cholecystectomy, anxiety, who presents with acute respiratory failure 2/2/ to COVID infection 1) Acute hypoxic respiratory failure 2/2 COVID - Pt refused chest CTA - pt now amenable to plasma infusion, pt signed consent today - s/p abx and tocilizumab - decrease solumedrol to 30 daily. Tapering Day 8. - Lovenox 90 BID until PE r/o - zinc, vitamin c, vitamin d - albuterol inhaler - monitor ferritin, LDH, CRP daily, improving. - maintain Sao2 >90% on cpap. Pt satting 85-> 93% on 100% FiO2 CPAP, wean as appropriate - Pulmonology consulted, Dr. Davis appreciate recs: - continue empiric steroids - continue empiric anticoagulation - titrate FiO2 to keep SpO2 >90% - continue NIPPV - pulse oximetry monitoring - will attempt plasma vs stem cells, pt refused last PM and this AM would like to s/w sister prior. 2) Hx of anxiety - Xanax 0.5 Q6H PRN - Xanax 0.5 BID - Psychiatry consulted, appreciate recs 3) Sinus Tachycardia - Possibly 2/2 anxiety - metoprolol 12.5 daily - Consulted cardiology, Dr. Vasquez, appreciate recommendations - Holter monitor 2011 for "palpitations" that showed high resting HR: Underlying rhythm sinus; average HR 98 bpm; maximum 150 bpm sinus tach; no arrhythmias. - F/u CTA/given elevated d-dimer and h/o dvt's, continued sinus tachycardia. Pt's sister says pt had some reaction to "contrast" when she had a CT chest at [facility]; will try to obtain records. Reaction possibly due to anxiety and not allergic reaction DVT: Lovenox BID F: Oral hydration E: Monitor CMP, repleted K with Kdur N: full liquid diet Dispo: Monitor on Telemetry. Continue close watch. Visit type - Emergency Visit Emergency Visit: Yes ED Registration Date: 12/19/19 Care time: The patient presented to the Emergency Department on the above date and was hospitalized for further evaluation of their emergent condition. - New Patient This patient is new to me today: No - Critical Care Critical Care patient: No - Discharge Referral Referred to [facility] No ATTENDING PHYSICIAN STATEMENT I saw and evaluated the patient. I reviewed the resident's note and discussed the case with the resident. I agree with the resident's findings and plan as documented. SUBJECTIVE: OBJECTIVE: ASSESSMENT AND PLAN:
[2020-01-16 07:34] LABS: HEMATOCRIT 39.5 % (32.4-45.2); HEMOGLOBIN 13.2 GM/dL (10.7-15.3); MCH 30.8 pg (25.7-33.7); MCHC 33.4 g/dl (32.0-36.0); MEAN CELL VOLUME 92.3 fl (80-96); MEAN PLT VOLUME 7.7 fl (7.5-11.1); PLATELET COUNT 257 K/MM3 (134-434); RBC 4.28 M/mm3 (3.60-5.2); RDW 17.1 % (11.6-15.6); WHITE BLOOD COUNT 9.1 K/mm3 (4.0-10.0)
--- NOTE | 2020-01-16 08:12 | PN ---
Progress Note, Physician History of Present Illness: pulmonary alert,on bipap,comfortable,o2 sat 90% - Current Medication List Current Medications: Active Medications Acetaminophen (Tylenol -) 650 mg PO Q6H PRN PRN Reason: PAIN Albuterol Sulfate (Ventolin Hfa Inhaler -) 2 puff IH Q4H PRN PRN Reason: SHORT OF BREATH/WHEEZING Alprazolam (Xanax -) 0.5 mg PO BID [facility] Last Admin: 01/15/20 21:42 Dose: 0.5 mg Documented by: Ascorbic Acid (Vitamin C -) 500 mg PO DAILY [facility] Last Admin: 01/15/20 10:14 Dose: 500 mg Documented by: Cholecalciferol (Vitamin D3 -) 1,000 unit PO DAILY [facility] Last Admin: 01/15/20 10:14 Dose: 1,000 unit Documented by: Enoxaparin Sodium (Lovenox -) 90 mg SQ BID [facility] Last Admin: 01/15/20 21:33 Dose: 90 mg Documented by: Lactobacillus Acidophilus (Bacid -) 1 tab PO DAILY [facility] Last Admin: 01/15/20 10:14 Dose: 1 tab Documented by: Methylprednisolone Sodium Succinate (Solu-Medrol -) 30 mg IVPUSH DAILY [facility] Last Admin: 01/15/20 10:15 Dose: 30 mg Documented by: Metoprolol Succinate (Toprol Xl -) 12.5 mg PO DAILY [facility] Last Admin: 01/15/20 10:18 Dose: 12.5 mg Documented by: Nystatin (Nystop Powder -) 1 applic TP DAILY [facility] Last Admin: 01/15/20 10:15 Dose: 1 applic Documented by: Pantoprazole Sodium (Protonix -) 40 mg PO DAILY [facility] Last Admin: 01/15/20 10:14 Dose: 40 mg Documented by: Polyethylene Glycol (Miralax (For Daily Use) -) 17 gm PO Q24H PRN PRN Reason: CONSTIPATION Last Admin: 01/11/20 11:50 Dose: 17 gm Documented by: Zinc Sulfate (Orazinc -) 220 mg PO DAILY [facility] Last Admin: 01/15/20 10:15 Dose: 220 mg Documented by: - Objective Vital Signs: Vital Signs Temperature 97.9 F 01/16/20 06:00 Pulse Rate 121 H 01/16/20 06:00 Respiratory Rate 22 H 01/16/20 06:00 Blood Pressure 107/62 05/11/20 06:00 O2 Sat by Pulse Oximetry (%) 92 L 01/15/20 21:00 Constitutional: Yes: Well Nourished, Obese Eyes: Yes: WNL HENT: Yes: WNL Neck: Yes: WNL Cardiovascular: Yes: Regular Rate and Rhythm, S1, S2 Respiratory: Yes: Diminished Gastrointestinal: Yes: Normal Bowel Sounds, Soft Extremities: Yes: WNL Edema: No Labs: CBC, BMP 01/16/20 07:05 INR, PTT INR 1.25 (0.83-1.09) H 12/19/19 13:13 Laboratory Tests 01/16/20 01/16/20 07:05 07:05 D-Dimer 1206 H Ferritin 787.7 H Problem List - Problems (1) COVID-19 Code(s): U07.1 - COVID POSITIVE (2) Acute respiratory failure with hypoxia Code(s): J96.01 - ACUTE RESPIRATORY FAILURE WITH HYPOXIA (3) Acute hypoxemic respiratory failure Code(s): J96.01 - ACUTE RESPIRATORY FAILURE WITH HYPOXIA (4) HTN (hypertension) Code(s): I10 - ESSENTIAL (PRIMARY) HYPERTENSION Qualifiers: Hypertension type: essential hypertension Qualified Code(s): I10 - Essential (primary) hypertension (5) Obesity Code(s): E66.9 - OBESITY, UNSPECIFIED (6) Suspected COVID-19 virus infection Code(s): R68.89 - OTHER GENERAL SYMPTOMS AND SIGNS Assessment/Plan ASSESSMENT AND PLAN Acute Hypoxic Respiratory Failure COVID Pneumonia ARDS resolved Septic Shock resolved Elevated LFTs h/o Hodgkins Lymphoma h/o DVTs - refused convalescent plasma - completed antibiotics - completed plaquenil course - empiric steroids - empiric anticoagulation - continue CPAP attempt to place on nrb - titrate FiO2 to keep SpO2 >90% - pulse oximetry monitoring - continue current treatment plan DR GIBSON
[2020-01-16 08:13] LABS: ALBUMIN 3.4 g/dl (3.4-5.0); ALK PHOS 135 U/L (45-117); ANION GAP 6 MMOL/L (8-16); BILIRUBIN,TOTAL 0.5 mg/dL (0.2-1); BLOOD UREA NITROGEN 6.4 mg/dL (7-18); CALCIUM 9.3 mg/dL (8.5-10.1); CHLORIDE 100 mmol/L (98-107); CO2 32 mmol/L (21-32); CREATININE 0.6 mg/dL (0.55-1.3); GLUCOSE,RANDOM 91 mg/dL (74-106); LDH 566 U/L (84-246); POTASSIUM 3.4 mmol/L (3.5-5.1); SGOT/AST 147 U/L (15-37); SGPT/ALT 404 U/L (13-61); SODIUM 138 mmol/L (136-145); TOT PROT 6.1 g/dl (6.4-8.2)
[2020-01-16] MEDS: methylPREDNISolone NA SUCC 40 MG/1 ML VIAL IVPUSH SCH (10:19)
[2020-01-16] MEDS: ASCORBIC ACID 500 MG TABLET (FP) PO SCH (10:20)
[2020-01-16] MEDS: metoPROLOL SUCCINATE 25 MG TAB.SR.24H (FP) PO SCH (10:20)
[2020-01-16] MEDS: LACTOBACILLUS ACIDOPHILUS 1 TABLET PO SCH (10:20)
[2020-01-16] MEDS: CHOLECALCIFEROL (VIT D3) 1,000 UNIT (25 MCG) TABLET PO SCH (10:20)
[2020-01-16] MEDS: PANTOPRAZOLE 40 MG TABLET PO SCH (10:20)
[2020-01-16] MEDS: NYSTATIN POWDER 100,000 UNITS/GM - 15 GM TOPICAL POWDER TP SCH (10:21)
[2020-01-16] MEDS: ZINC SULFATE 220 MG CAPSULE (FP) PO SCH (10:21)
[2020-01-16] MEDS: ALPRAZolam 0.25 MG TABLET PO SCH ×3 (10:21→21:31)
[2020-01-16] MEDS: ENOXAPARIN NA (PORCINE) 100 MG/1 ML DISP.SYRIN SQ SCH ×2 (10:21→21:31)
[2020-01-16] MEDS ORDERED: POTASSIUM CHLORIDE TABS 20 MEQ TABLET.ER (FP) PO ONE (10:47)
[2020-01-16] MEDS ORDERED: POTASSIUM CHLORIDE ORAL LIQUID 20 MEQ/15 ML PO ONE (10:57)
--- NOTE | 2020-01-16 11:10 | PN ---
Teaching Attending Note Name of Resident: Asa Trevino ATTENDING PHYSICIAN STATEMENT I saw and evaluated the patient. I reviewed the resident's note and discussed the case with the resident. I agree with the resident's findings and plan as documented. SUBJECTIVE: Patient continues to be on cpap, still with some difficulty , refused convalas ent plasma. OBJECTIVE: Vital Signs Temperature 97.9 F 01/16/20 06:00 Pulse Rate 121 H 01/16/20 06:00 Respiratory Rate 22 H 01/16/20 06:00 Blood Pressure 107/62 01/16/20 06:00 O2 Sat by Pulse Oximetry (%) 92 L 01/15/20 21:00 PE: per resident's note CBCD WBC 9.1 K/mm3 (4.0-10.0) 01/16/20 07:05 RBC 4.28 M/mm3 (3.60-5.2) 01/16/20 07:05 Hgb 13.2 GM/dL (10.7-15.3) 01/16/20 07:05 Hct 39.5 % (32.4-45.2) 01/16/20 07:05 MCV 92.3 fl (80-96) 01/16/20 07:05 MCHC 33.4 g/dl (32.0-36.0) 01/16/20 07:05 RDW 17.1 % (11.6-15.6) H 01/16/20 07:05 Plt Count 257 K/MM3 (134-434) 01/16/20 07:05 MPV 7.7 fl (7.5-11.1) 01/16/20 07:05 CMP Sodium 138 mmol/L (136-145) 01/16/20 07:05 Potassium 3.4 mmol/L (3.5-5.1) L 01/16/20 07:05 Chloride 100 mmol/L (98-107) 01/16/20 07:05 Carbon Dioxide 32 mmol/L (21-32) 01/16/20 07:05 Anion Gap 6 MMOL/L (8-16) L 01/16/20 07:05 BUN 6.4 mg/dL (7-18) L 01/16/20 07:05 Creatinine 0.6 mg/dL (0.55-1.3) 01/16/20 07:05 Random Glucose 91 mg/dL (74-106) 01/16/20 07:05 Calcium 9.3 mg/dL (8.5-10.1) 01/16/20 07:05 Total Bilirubin 0.5 mg/dL (0.2-1) 01/16/20 07:05 AST 147 U/L (15-37) H 01/16/20 07:05 ALT 404 U/L (13-61) H 01/16/20 07:05 Alkaline Phosphatase 135 U/L (45-117) H 01/16/20 07:05 Total Protein 6.1 g/dl (6.4-8.2) L 01/16/20 07:05 Albumin 3.4 g/dl (3.4-5.0) 01/16/20 07:05 CARDIAC ENZYMES Creatine Kinase 32 U/L (26-192) 12/29/19 07:10 Troponin I < 0.02 ng/ml (0.00-0.05) 12/19/19 13:13 Current Medications Generic Name Dose Route Start Last Admin Trade Name Freq PRN Reason Stop Dose Admin Acetaminophen 650 mg 12/28/19 15:59 Tylenol - PO Q6H PRN PAIN Albuterol Sulfate 2 puff 12/28/19 15:59 Ventolin Hfa Inhaler - IH Q4H PRN SHORT OF BREATH/WHEEZING Alprazolam 0.5 mg 01/16/20 11:00 Xanax - PO BID DARIEL Alprazolam 0.5 mg 01/16/20 10:55 Xanax - PO Q6H PRN ANXIETY Ascorbic Acid 500 mg 12/30/19 10:00 01/16/20 10:20 Vitamin C - PO 500 mg DAILY DARIEL Administration Cholecalciferol 1,000 unit 12/30/19 10:00 01/16/20 10:20 Vitamin D3 - PO 1,000 unit DAILY DARIEL Administration Enoxaparin Sodium 90 mg 01/06/20 22:00 01/16/20 10:21 Lovenox - SQ 90 mg BID DARIEL Administration Lactobacillus Acidophilus 1 tab 12/29/19 10:00 01/16/20 10:20 Bacid - PO 1 tab DAILY DARIEL Administration Methylprednisolone Sodium Succinate 30 mg 01/12/20 11:17 01/16/20 10:19 Solu-Medrol - IVPUSH 30 mg DAILY DARIEL Administration Metoprolol Succinate 12.5 mg 01/12/20 15:06 01/16/20 10:20 Toprol Xl - PO 12.5 mg DAILY DARIEL Administration Nystatin 1 applic 01/13/20 10:00 01/16/20 10:21 Nystop Powder - TP 1 applic DAILY DARIEL Administration Pantoprazole Sodium 40 mg 12/29/19 10:00 01/16/20 10:20 Protonix - PO 40 mg DAILY DARIEL Administration Polyethylene Glycol 17 gm 01/09/20 17:43 01/11/20 11:50 Miralax (For Daily Use) - PO 17 gm Q24H PRN Administration CONSTIPATION Zinc Sulfate 220 mg 12/29/19 10:00 01/16/20 10:21 Orazinc - PO 220 mg DAILY DARIEL Administration Home Medications Medication Instructions Recorded Cetirizine HCl 10 mg PO DAILY 12/29/19 traZODone HCL [Trazodone HCl] 50 mg PO HS 12/29/19 Microbiology 12/20/19 10:35 Blood - Peripheral Venous Blood Culture - Final NO GROWTH AFTER 5 DAYS INCUBATION 12/21/19 05:24 Sputum - Expectorated Gram Stain - Final 12/21/19 05:24 Sputum - Expectorated Sputum Culture - Final NORMAL RESPIRATORY CRISSY 12/20/19 22:15 Urine - Urine Clean Catch Legionella Antigen - Final 12/20/19 22:15 Urine - Urine Clean Catch Streptococcus pneumoniae Antigen (M - Final ASSESSMENT AND PLAN: Patient is a 44yof with PMhx of lymphoma, DVT who presented with myalgia and was found to have acute hypoxic resp failure due to COVID 19 # COVID 19 infection : s/p Tocilizumab 8mg/kg. s/p plaquenil. Declined plasma multiple times, agreed last night but continues to refuse plasma and repeat dose of Tocilizumab, refuses CTA. discussed with ICU , if deteriorates further will transfer to ICU , patient was evaluated by ICU team. # Acute hypoxic resp failure due to Covid 19: cont CPAP , patient declined CTA, continue CPAP, titrate FiO2 to keep SpO2 >90% # B/l PNA due to covid # Anxiety continue xanax # Sinus tachy in setting of anxiety continue anxiolytics on a low dose # S/p septic shock # Transaminitis continues to trend up due to COVID #leukocytosis due to steroids. day 21 of steroids. cont taper: 30 mg IV daily now # Hx of [place] Lymphoma DVT px: lovenox 90mg bid solu medrol 30mg iv will continue to trend the markers. continue to monitor the saturation (?) Stem cells : as per Pulm. patient agreed for convalescent plasma patient refused convalescent plasma refused today again continue CPAP attempt to place on nrb titrate FiO2 to keep SpO2 >90% pulse oximetry monitoring pulm is on the case
--- NOTE | 2020-01-16 15:42 | PN ---
Progress Note, Physician History of Present Illness: 44yof with PMhx of lymphoma in remission, ( 8 yr) presented to ED. with SOB and myalgias [id number] and was found to be on 68% on RA on admission as per ED. Notes. DX with COVID PNA Developed septic shock ARDS PMH Acute Hypoxic Respiratory Failure due to ARDS due to COVID19 Pneumonitis Septic Shock Transaminitis Hodgkins lymphoma s/p radiation and stem cell transplant in 2012 - Current Medication List Current Medications: Active Medications Acetaminophen (Tylenol -) 650 mg PO Q6H PRN PRN Reason: PAIN Albuterol Sulfate (Ventolin Hfa Inhaler -) 2 puff IH Q4H PRN PRN Reason: SHORT OF BREATH/WHEEZING Alprazolam (Xanax -) 0.5 mg PO BID [facility] Last Admin: 01/16/20 11:25 Dose: Not Given Documented by: Alprazolam (Xanax -) 0.5 mg PO Q6H PRN PRN Reason: ANXIETY Ascorbic Acid (Vitamin C -) 500 mg PO DAILY [facility] Last Admin: 01/16/20 10:20 Dose: 500 mg Documented by: Cholecalciferol (Vitamin D3 -) 1,000 unit PO DAILY [facility] Last Admin: 01/16/20 10:20 Dose: 1,000 unit Documented by: Enoxaparin Sodium (Lovenox -) 90 mg SQ BID [facility] Last Admin: 01/16/20 10:21 Dose: 90 mg Documented by: Lactobacillus Acidophilus (Bacid -) 1 tab PO DAILY [facility] Last Admin: 01/16/20 10:20 Dose: 1 tab Documented by: Methylprednisolone Sodium Succinate (Solu-Medrol -) 30 mg IVPUSH DAILY [facility] Last Admin: 01/16/20 10:19 Dose: 30 mg Documented by: Metoprolol Succinate (Toprol Xl -) 12.5 mg PO DAILY [facility] Last Admin: 01/16/20 10:20 Dose: 12.5 mg Documented by: Nystatin (Nystop Powder -) 1 applic TP DAILY [facility] Last Admin: 01/16/20 10:21 Dose: 1 applic Documented by: Pantoprazole Sodium (Protonix -) 40 mg PO DAILY [facility] Last Admin: 01/16/20 10:20 Dose: 40 mg Documented by: Polyethylene Glycol (Miralax (For Daily Use) -) 17 gm PO Q24H PRN PRN Reason: CONSTIPATION Last Admin: 01/11/20 11:50 Dose: 17 gm Documented by: Zinc Sulfate (Orazinc -) 220 mg PO DAILY DARIEL Last Admin: 01/16/20 10:21 Dose: 220 mg Documented by: - Objective Vital Signs: Vital Signs Temperature 98.9 F 01/16/20 14:00 Pulse Rate 128 H 01/16/20 14:00 Respiratory Rate 22 H 01/16/20 14:00 Blood Pressure 117/74 01/16/20 14:00 O2 Sat by Pulse Oximetry (%) 90 L 01/16/20 08:08 Eyes: Yes: WNL, Conjunctiva Clear, EOM Intact HENT: Yes: WNL, Atraumatic, Normocephalic Neck: Yes: WNL, Supple, Trachea Midline Cardiovascular: Yes: Tachycardia Respiratory: Yes: Diminished, On BiPap Gastrointestinal: Yes: WNL, Normal Bowel Sounds Genitourinary: Yes: WNL Musculoskeletal: Yes: WNL Extremities: Yes: WNL Edema: No Integumentary: Yes: WNL Neurological: Yes: WNL, Alert, Oriented ...Motor Strength: WNL Psychiatric: Yes: WNL Labs: CBC, BMP 01/16/20 07:05 01/16/20 07:05 INR, PTT INR 1.25 (0.83-1.09) H 12/19/19 13:13 Problem List - Problems (1) Acute respiratory failure with hypoxia Code(s): J96.01 - ACUTE RESPIRATORY FAILURE WITH HYPOXIA (2) COVID-19 Code(s): U07.1 - COVID POSITIVE (3) Suspected COVID-19 virus infection Code(s): R68.89 - OTHER GENERAL SYMPTOMS AND SIGNS (4) Abdominal pain Code(s): R10.9 - UNSPECIFIED ABDOMINAL PAIN Qualifiers: Abdominal location: lower abdomen (5) Arm pain, left Code(s): M79.602 - PAIN IN LEFT ARM (6) Numbness Code(s): R20.0 - ANESTHESIA OF SKIN (7) Postoperative pain Code(s): G89.18 - OTHER ACUTE POSTPROCEDURAL PAIN (8) Sternal pain Code(s): R07.89 - OTHER CHEST PAIN (9) TIA (transient ischemic attack) Code(s): G45.9 - TRANSIENT CEREBRAL ISCHEMIC ATTACK, UNSPECIFIED Assessment/Plan 1. Acute hypoxic respiratory failure currently on NIPPV 2. (+) COVID 19 - pneumonitis 3. HTN 4. Non Hodgkins Lymphoma in remission 5. Sinus tachycardia; multiple contributers (including anxiety; respiratory distress; ? PE; CHF) 6. Leukocytosis, abnormal LFT, inflammatory markers and D dimer due to COVID 7. H/o DVT PLAN: 1.Pt feels symptomatically improved on Tocilizumab; f/u inflammatory markers. IV steroid taper with GI protection, Zinc; pt has refused plasma; consider Remdesivir. 2. Metoprolol 12.5 qd 3. Lovenox 90 mg Q12 (COVID; PE also being ruled out) 4. BD as needed 5. BIPAP and titrate FiO2 to keep SpO2 >90% 6. Consider CTA/given elevated d-dimer and h/o dvt's, continued sinus tachycardia. Pt's sister says pt had some reaction to "contrast" when she had a CT chest at [facility]; will try to obtain records. (On further discussion with one of pt's nurses, pt and sister apparently told medical transcription last Thursday that there was not a true negative reaction to contrast, but that pt was highly anxious during the CT). 7. ECHO 01/13/20: normal LVEF; normal RV and RVEF. 8. COVID status reportedly being checked again.
[2020-01-17] MEDS: ACETAMINOPHEN 325 MG TABLET (FP) PO PRN ×2 (00:19→13:42)
[2020-01-17] MEDS: ALPRAZolam 0.25 MG TABLET PO PRN ×2 (00:20→13:43)
--- NOTE | 2020-01-17 07:47 | PN ---
Progress Note, Physician History of Present Illness: pulmonary alert,remains on bipap-resp distress,desaturates on nrb - Current Medication List Current Medications: Active Medications Acetaminophen (Tylenol -) 650 mg PO Q6H PRN PRN Reason: PAIN Last Admin: 01/17/20 00:19 Dose: 650 mg Documented by: Albuterol Sulfate (Ventolin Hfa Inhaler -) 2 puff IH Q4H PRN PRN Reason: SHORT OF BREATH/WHEEZING Alprazolam (Xanax -) 0.5 mg PO BID [facility] Last Admin: 01/16/20 21:31 Dose: Not Given Documented by: Alprazolam (Xanax -) 0.5 mg PO Q6H PRN PRN Reason: ANXIETY Last Admin: 01/17/20 00:20 Dose: 0.5 mg Documented by: Ascorbic Acid (Vitamin C -) 500 mg PO DAILY [facility] Last Admin: 01/16/20 10:20 Dose: 500 mg Documented by: Cholecalciferol (Vitamin D3 -) 1,000 unit PO DAILY [facility] Last Admin: 01/16/20 10:20 Dose: 1,000 unit Documented by: Enoxaparin Sodium (Lovenox -) 90 mg SQ BID [facility] Last Admin: 01/16/20 21:31 Dose: 90 mg Documented by: Lactobacillus Acidophilus (Bacid -) 1 tab PO DAILY [facility] Last Admin: 01/16/20 10:20 Dose: 1 tab Documented by: Methylprednisolone Sodium Succinate (Solu-Medrol -) 30 mg IVPUSH DAILY [facility] Last Admin: 01/16/20 10:19 Dose: 30 mg Documented by: Metoprolol Succinate (Toprol Xl -) 12.5 mg PO DAILY [facility] Last Admin: 01/16/20 10:20 Dose: 12.5 mg Documented by: Nystatin (Nystop Powder -) 1 applic TP DAILY [facility] Last Admin: 01/16/20 10:21 Dose: 1 applic Documented by: Pantoprazole Sodium (Protonix -) 40 mg PO DAILY [facility] Last Admin: 01/16/20 10:20 Dose: 40 mg Documented by: Polyethylene Glycol (Miralax (For Daily Use) -) 17 gm PO Q24H PRN PRN Reason: CONSTIPATION Last Admin: 01/11/20 11:50 Dose: 17 gm Documented by: Zinc Sulfate (Orazinc -) 220 mg PO DAILY [facility] Last Admin: 01/16/20 10:21 Dose: 220 mg Documented by: - Objective Vital Signs: Vital Signs Temperature 97.7 F 01/17/20 06:00 Pulse Rate 128 H 01/17/20 06:00 Respiratory Rate 32 H 01/17/20 06:00 Blood Pressure 123/66 01/17/20 06:00 O2 Sat by Pulse Oximetry (%) 90 L 01/17/20 00:11 Constitutional: Yes: Well Nourished, Calm Eyes: Yes: WNL HENT: Yes: WNL Neck: Yes: WNL Cardiovascular: Yes: Regular Rate and Rhythm, S1, S2 Respiratory: Yes: Diminished, On BiPap Gastrointestinal: Yes: Normal Bowel Sounds, Soft Extremities: Yes: WNL Edema: No Labs: CBC, BMP Laboratory Tests 01/14/20 17:10 COVID-19 ([facility]ACE) Not detected Problem List - Problems (1) COVID-19 Code(s): U07.1 - COVID POSITIVE (2) Acute respiratory failure with hypoxia Code(s): J96.01 - ACUTE RESPIRATORY FAILURE WITH HYPOXIA (3) Acute hypoxemic respiratory failure Code(s): J96.01 - ACUTE RESPIRATORY FAILURE WITH HYPOXIA (4) HTN (hypertension) Code(s): I10 - ESSENTIAL (PRIMARY) HYPERTENSION Qualifiers: Hypertension type: essential hypertension Qualified Code(s): I10 - Essential (primary) hypertension (5) Obesity Code(s): E66.9 - OBESITY, UNSPECIFIED (6) Suspected COVID-19 virus infection Code(s): R68.89 - OTHER GENERAL SYMPTOMS AND SIGNS Assessment/Plan ASSESSMENT AND PLAN Acute Hypoxic Respiratory Failure COVID Pneumonia ARDS resolved Septic Shock resolved Elevated LFTs h/o Hodgkins Lymphoma h/o DVTs - refused convalescent plasma - completed antibiotics - completed plaquenil course - steroids - empiric anticoagulation - continue CPAP attempt to place on nrb - titrate FiO2 to keep SpO2 >90% - pulse oximetry monitoring - continue current treatment plan DR GIBSON
[2020-01-17 08:19] LABS: EOS % 10.1 % (0-4.5); HEMATOCRIT 41.1 % (32.4-45.2); HEMOGLOBIN 13.6 GM/dL (10.7-15.3); LYMPH % 15.8 % (8-40); MCHC 33.2 g/dl (32.0-36.0); MEAN CELL VOLUME 93.2 fl (80-96); MONO % 8.4 % (3.8-10.2); NEUT % 64.7 % (42.8-82.8); PLATELET COUNT 233 K/MM3 (134-434); RBC 4.41 M/mm3 (3.60-5.2); RDW 17.6 % (11.6-15.6); WHITE BLOOD COUNT 8.9 K/mm3 (4.0-10.0)
[2020-01-17 09:06] LABS: ALBUMIN 3.5 g/dl (3.4-5.0); ALK PHOS 137 U/L (45-117); ANION GAP 10 MMOL/L (8-16); BILIRUBIN,TOTAL 0.6 mg/dL (0.2-1); BLOOD UREA NITROGEN 5.9 mg/dL (7-18); CALCIUM 9.2 mg/dL (8.5-10.1); CHLORIDE 102 mmol/L (98-107); CO2 28 mmol/L (21-32); CREATININE 0.5 mg/dL (0.55-1.3); GLUCOSE,RANDOM 91 mg/dL (74-106); LDH 749 U/L (84-246); POTASSIUM 4.3 mmol/L (3.5-5.1); SGOT/AST 137 U/L (15-37); SGPT/ALT 429 U/L (13-61); SODIUM 139 mmol/L (136-145); TOT PROT 6.4 g/dl (6.4-8.2)
[2020-01-17] MEDS: ENOXAPARIN NA (PORCINE) 100 MG/1 ML DISP.SYRIN SQ SCH ×2 (09:56→21:37)
[2020-01-17] MEDS: NYSTATIN POWDER 100,000 UNITS/GM - 15 GM TOPICAL POWDER TP SCH (09:57)
[2020-01-17] MEDS: metoPROLOL SUCCINATE 25 MG TAB.SR.24H (FP) PO SCH (09:57)
[2020-01-17] MEDS: ALPRAZolam 0.25 MG TABLET PO SCH (09:58)
[2020-01-17] MEDS: ZINC SULFATE 220 MG CAPSULE (FP) PO SCH (12:06)
[2020-01-17] MEDS: PANTOPRAZOLE 40 MG TABLET PO SCH (12:06)
[2020-01-17] MEDS: CHOLECALCIFEROL (VIT D3) 1,000 UNIT (25 MCG) TABLET PO SCH (12:06)
[2020-01-17] MEDS: LACTOBACILLUS ACIDOPHILUS 1 TABLET PO SCH (12:06)
[2020-01-17] MEDS: ASCORBIC ACID 500 MG TABLET (FP) PO SCH (12:06)
--- NOTE | 2020-01-17 13:52 | PN ---
Teaching Attending Note Name of Resident: Layne Doss ATTENDING PHYSICIAN STATEMENT I saw and evaluated the patient. I reviewed the resident's note and discussed the case with the resident. I agree with the resident's findings and plan as documented. SUBJECTIVE: no fever or chills. feels extremely anxious. no N/V . SOB +. no CP OBJECTIVE: NAD, awake, CPAP mask on. looks anxious No JVD. Abd: soft, NT, NS. Ext: No edema CV: tachy, regular rhythm Lungs: bibasilar crackles with good air entry ASSESSMENT AND PLAN: 44 y/o lady with h/o lymphoma and DVT who presented with myalgia and was found to have acute hypoxic resp failure due to COVID 19 1- COVID 19 infection 2- Acute hypoxic resp failure 3- B/l PNA 4- Anxiety 5- Sinus tachy in setting of anxiety 6- S/p septic shock 7- Transaminitis, due to COVID Plan: - patient respiratory status is worse today. hypoxic and very anxious . SAt O2 -70s and 80s - repeat Cxray - call ICU again ( called yesterday) - S/p plaquenil and tacilizumab. - up for plasma but lost her IV access. - change solu_merdol to prednisone 20 daily due to lak of IV access ( day 28 of steroids total ) - she declined central line. will try to place a picc if not intubated - cont lovenox - cont CPAP . - cont xanax - cont toprol daily. - monitor LFTS Will contact ICU team for eval and possible transfer to the unit. Critical Care Total Critical Care Time (in minutes): 30 Critical Care Statement: The care of this patient involved high complexity decision making to prevent further life threatening deterioration of the patient's condition and/or to evaluate & treat vital organ system(s) failure or risk of failure.
[2020-01-17] MEDS: methylPREDNISolone NA SUCC 40 MG/1 ML VIAL IVPUSH SCH (13:58)
[2020-01-17] MEDS: predniSONE 20 MG TABLET (UD) PO SCH (14:00)
[2020-01-17 14:40] LABS: ANISOCYTOSIS 1+; MACROCYTOSIS 0; OVALOCYTE 1+; PLATELET ESTIMATE NORMAL; TEAR DROP CELLS 1+
--- NOTE | 2020-01-17 15:28 | PN ---
Physical Exam: SUBJECTIVE: Patient seen and examined at the bedside. No acute events reported overnight. Pt reportedly got very anxious and refused plasma yesterday. Today she has lost IV access but is requesting to proceed with the plasma, however she is very apprehensive about getting a central line. Pt is still SOB on BIPAP without much improvement. OBJECTIVE: Vital Signs Period Temp Pulse Resp BP Sys/Rivera Pulse Ox Last 24 Hr 97.6 F-99.8 F 128-143 22-34 106-131/66-77 82-93 GENERAL: The patient is awake, alert, and fully oriented, in no acute distress. HEAD: Normal with no signs of trauma. NECK: Trachea midline, full range of motion, supple. LUNGS: Diminised breath sounds bilaterally, no accessory muscle use. HEART: Regular rhythm, tachycardic, S1, S2 ABDOMEN: Soft, nontender, nondistended EXTREMITIES: 2+ pulses, warm, well-perfused, no edema. NEUROLOGICAL: Cranial nerves II through XII grossly intact Laboratory Results - last 24 hr 01/17/20 01/17/20 01/17/20 07:30 07:30 07:30 WBC 8.9 RBC 4.41 Hgb 13.6 Hct 41.1 MCV 93.2 MCH 31.0 MCHC 33.2 RDW 17.6 H Plt Count 233 MPV 8.0 Absolute Neuts (auto) 5.8 Neutrophils % 64.7 Neutrophils % (Manual) 52.1 Band Neutrophils % 5.2 Lymphocytes % 15.8 Lymphocytes % (Manual) 7.3 L Monocytes % 8.4 Monocytes % (Manual) 9 Eosinophils % 10.1 H Eosinophils % (Manual) 13.5 H Basophils % 1.0 Basophils % (Manual) 2.1 H D Myelocytes % (Man) 1 D Promyelocytes % (Man) 0 Blast Cells % (Manual) 0 Nucleated RBC % 1 H Metamyelocytes 0 Hypochromia 0 Platelet Estimate Normal Polychromasia 1+ Poikilocytosis 1+ Anisocytosis 1+ Microcytosis 1+ Macrocytosis 0 Spherocytes 1+ Tear Drop Cells 1+ Ovalocytes 1+ Schistocytes 1+ D-Dimer 1348 H Sodium 139 Potassium 4.3 Chloride 102 Carbon Dioxide 28 Anion Gap 10 BUN 5.9 L Creatinine 0.5 L Est GFR (CKD-EPI)AfAm 138.36 Est GFR (CKD-EPI)NonAf 119.38 Random Glucose 91 Calcium 9.2 Ferritin 783.4 H Total Bilirubin 0.6 AST 137 H ALT 429 H Alkaline Phosphatase 137 H LD Total 749 H C-Reactive Protein < 0.3 Total Protein 6.4 Albumin 3.5 Active Medications Generic Name Dose Route Start Last Admin Trade Name Freq PRN Reason Stop Dose Admin Acetaminophen 650 mg 12/28/19 15:59 01/17/20 13:42 Tylenol - PO 650 mg Q6H PRN Administration PAIN Albuterol Sulfate 2 puff 12/28/19 15:59 Ventolin Hfa Inhaler - IH Q4H PRN SHORT OF BREATH/WHEEZING Alprazolam 0.5 mg 01/16/20 11:00 01/17/20 09:58 Xanax - PO 0.5 mg BID DARIEL Administration Alprazolam 0.5 mg 01/16/20 10:55 01/17/20 13:43 Xanax - PO 0.5 mg Q6H PRN Administration ANXIETY Ascorbic Acid 500 mg 12/30/19 10:00 01/17/20 12:06 Vitamin C - PO 500 mg DAILY DARIEL Administration Cholecalciferol 1,000 unit 12/30/19 10:00 01/17/20 12:06 Vitamin D3 - PO 1,000 unit DAILY DARIEL Administration Enoxaparin Sodium 90 mg 01/06/20 22:00 01/17/20 09:56 Lovenox - SQ 90 mg BID DARIEL Administration Lactobacillus Acidophilus 1 tab 12/29/19 10:00 01/17/20 12:06 Bacid - PO 1 tab DAILY DARIEL Administration Metoprolol Succinate 12.5 mg 01/12/20 15:06 01/17/20 09:57 Toprol Xl - PO 12.5 mg DAILY DARIEL Administration Nystatin 1 applic 01/13/20 10:00 01/17/20 09:57 Nystop Powder - TP 1 applic DAILY DARIEL Administration Pantoprazole Sodium 40 mg 12/29/19 10:00 01/17/20 12:06 Protonix - PO 40 mg DAILY DARIEL Administration Polyethylene Glycol 17 gm 01/09/20 17:43 01/11/20 11:50 Miralax (For Daily Use) - PO 17 gm Q24H PRN Administration CONSTIPATION Prednisone 20 mg 01/17/20 14:00 01/17/20 14:00 Deltasone - PO 20 mg DAILY DARIEL Administration Zinc Sulfate 220 mg 12/29/19 10:00 01/17/20 12:06 Orazinc - PO 220 mg DAILY DARIEL Administration ASSESSMENT/PLAN: 44F PMH Hodgkins' lymphoma s/p radiation and stem cell transplant (2011), appendectomy, cholecystectomy, anxiety, who presents with acute respiratory failure 2/2/ to COVID infection 1) Acute hypoxic respiratory failure 2/2 COVID - Pt refused chest CTA - pt now amenable to plasma infusion, pt signed consent today - s/p abx and tocilizumab - decrease solumedrol to 20 daily. Tapering Day 9. - Lovenox 90 BID until PE r/o - zinc, vitamin c, vitamin d - albuterol inhaler - monitor ferritin, LDH, CRP daily, improving. - maintain Sao2 >90% on cpap. Pt satting 85-> 93% on 100% FiO2 CPAP, wean as appropriate - Pulmonology consulted, Dr. Davis appreciate recs: - continue empiric steroids - continue empiric anticoagulation - titrate FiO2 to keep SpO2 >90% - continue NIPPV - pulse oximetry monitoring - will re-attempt plasma> pt without IV access, currently refusing central line, will reach out to IR about possibility of placing a PICC line 2) Hx of anxiety - Xanax 0.5 Q6H PRN - Xanax 0.5 BID - Psychiatry consulted, appreciate recs 3) Sinus Tachycardia - Possibly 2/2 anxiety - metoprolol 12.5 daily - Consulted cardiology, Dr. Vasquez, appreciate recommendations - Holter monitor 2011 for "palpitations" that showed high resting HR: Underlying rhythm sinus; average HR 98 bpm; maximum 150 bpm sinus tach; no arrhythmias. - F/u CTA/given elevated d-dimer and h/o dvt's, continued sinus tachycardia. Pt's sister says pt had some reaction to "contrast" when she had a CT chest at [facility]; will try to obtain records. Reaction possibly due to anxiety and not allergic reaction DVT: Lovenox BID F: Oral hydration E: Monitor CMP, repleted K with Kdur N: full liquid diet Dispo: Monitor on Telemetry. Continue close watch. Visit type - Emergency Visit Emergency Visit: Yes ED Registration Date: 12/19/19 Care time: The patient presented to the Emergency Department on the above date and was hospitalized for further evaluation of their emergent condition. - New Patient This patient is new to me today: No - Critical Care Critical Care patient: No - Discharge Referral Referred to [facility] Med P.C.: No ATTENDING PHYSICIAN STATEMENT I saw and evaluated the patient. I reviewed the resident's note and discussed the case with the resident. I agree with the resident's findings and plan as documented. SUBJECTIVE: OBJECTIVE: ASSESSMENT AND PLAN:
[2020-01-17] MEDS ORDERED: LORazepam 2 MG/ML SDV VIAL ONE ×2 (17:21→19:23)
--- NOTE | 2020-01-17 18:44 | PN ---
Progress Note (short form) - Note Progress Note: ICU team made aware that pt oxygen saturation maintains natan in the 70s despite current o2 supplementation and maneuvers such as prone position/laying lateral decubitus. Pt is very anxious. ICU team called to obtain vascular access. BP 158/92, HR 134, RR 36, o2 sat 72% Pt using accessory muscle of respiration, diaphoretic Pt brought to ICU and anesthesia paged stat. Per anesthesia, will trial more maneuvers such as prone position/laying lateral decubitus and maintain current o2 supplementation of CPAP.
[2020-01-17] MEDS ORDERED: LORazepam 2 MG/ML SDV VIAL IVPUSH ONE ×2 (19:17→20:32)
[2020-01-17] MEDS ORDERED: SODIUM CHLORIDE 0.9% 500 ML INFUS.BAG IV ONE (20:00)
[2020-01-17] MEDS ORDERED: SODIUM CHLORIDE 1,000 ML IV SCH (20:00)
[2020-01-17] MEDS ORDERED: RAPID SEQUENCE INTUBATION KIT NR ONE (22:24)
--- NOTE | 2020-01-17 22:46 | PN ---
Progress Note (short form) - Note Progress Note: Ms Grant became increasingly unresponsive, eventually becoming unresponsive to noxious stimuli. Anesthesia was paged for intubation for persistent hypoxia, respiratory distress, and inability to protect her airway. Ms Grant subsequently became bradycardic to the the 30's and went into PEA arrest. CPR was started and 1x epineprine was given prior to achieving ROSC. Please see the code sheet for details. The patient was intubated by Dr Cha, anesthesia, and a confirmation xray was ordered. Saturation remained in the the 70-80's following intubation. Ms Grant mother (Kaleigh Pollock) and sister (Rosie Grant) were contacted immediately to update them regarding the patient's change in condition. Verbal consent was obtained for placement of a central line. Joann Martinez PGY2
[2020-01-17] MEDS ORDERED: PROPOFOL 1,000,000 MCG/100 ML VIAL ONE (22:51)
[2020-01-17 23:14] LABS: ARTERIAL BLD GAS O2 SATURATION 78.9 % (95-98); ARTERIAL BLOOD GAS BASE EXCESS -13.7 mmol/L (-2-2); ARTERIAL BLOOD GAS PO2 65.3 mmHg (80-100)
[2020-01-17] MEDS ORDERED: SUCCINYLCHOLINE CHLORIDE 200 MG/10 ML VIAL IVPUSH ONE (23:14)
[2020-01-17] MEDS ORDERED: ETOMIDATE 20 MG/10 ML AMPUL IVPUSH ONE (23:14)
[2020-01-17 23:15] LABS: ALLENS TEST POSITIVE
[2020-01-17] MEDS ORDERED: PROPOFOL 1,000,000 MCG/100 ML VIAL IVPB SCH (23:15)
[2020-01-17 23:17] LABS: ARTERIAL BLOOD GAS PCO2 83.4 mmHg (35-45); ARTERIAL BLOOD GAS pH 6.99 (7.35-7.45)
--- NOTE | 2020-01-17 23:22 | PROC ---
Intubation - Intubation Reason for Intubation: Airway Protection Time of Intubation: 22:30 Intubation Method: orotracheal Blade used: Glidescope Tube Size (cm): 7.5 Tube position @ lip (cm): 21 Tube position confirmed by: Direct visualization, Chest x-ray (CXR pending), Breath sounds Breath Sounds after Intubation: equal, right greater than left (slightly more on right; will adjust after xray for guidance.) Post Intubation Xray: Yes (pending) Remarks: Code 99 On arrival, pt did have strong pulse but was unresponsive to stimuli. Per ICU team, pt. had extreme bradycardia and became unresponsive; she had received one round of epinephrine. RSI performed. Etomidate 12mg, followed immediately by Succinylcholine 120mg and flushed. After noticeable fasciculations ceased, ETT passed with ease under grade I Glidescope view. SpO2 in high 80s, pulse present and strong. Respiratory therapist to draw gas and adjust tube position PRN if indicated on xray. I encouraged team to call Anesthesiology if needed, we are readily available.
[2020-01-17] MEDS ORDERED: PROPOFOL 200 MG/20 ML VIAL IVPUSH ONE ×2 (23:58)
[2020-01-18] MEDS ORDERED: PROPOFOL 200 MG/20 ML VIAL IVPUSH ONE (00:05)
[2020-01-18] MEDS ORDERED: MIDAZOLAM 100MG/100ML DRIP - DO NOT USE FOR BILLING ONE (00:08)
[2020-01-18] MEDS ORDERED: SODIUM BICARBONATE IV SCH (00:30)
[2020-01-18] MEDS ORDERED: SODIUM CHLORIDE IV SCH (00:30)
[2020-01-18] MEDS: MIDAZOLAM 100 MG in SODIUM CHLORIDE 100 ML IVPB SCH (00:44)
--- NOTE | 2020-01-18 00:46 | PN ---
Progress Note (short form) - Note Progress Note: Central line placed by Dr Short, see procedure note. ETT was noted to be in right mainstem on initial xray. The tube was pulled back 2cm. A repeat xray was ordered to confirm the new ETT and RIJ placement. Following line placement and vera placement, an attempt was made to place an OGT. The patient became bradycardic to the 50's during the OGT attempt, which was immediately aborted. However, the patient continued to become more bradycardic to 30 and became pulseless. Epineprine was immediately given while the CPR was started. A total of 2x epinephrine and 1x bicarb were given, and ROSC was achieved. Please see code sheet for details. Following ROSC, a bicarbonate drip was started for acidemia noted on the post- intubation ABG. A norepinephrine drip was started for low blood pressures with MAPs in the 60's as well as several episodes of bradycardia. Propofol sedation was also switched to versed due to the soft pressures. The patient's sister, Rosie, was called and updated. Joann Martinez PGY2
--- NOTE | 2020-01-18 00:59 | PN ---
Procedure Note Procedure: Due to rapidly clinical deterioration the decision was made to place a central venous catheter for pressure support. Risks and benefits discussed with pt sister, Alta Grant, in detail; consent obtained over voice by Dr. Martinez. Both IJ veins examined with ultrasound; RIJV selected for placement. Patient prepped and draped in usual sterile fashion. Triple lumen catheter placed in the RIJ vein via Seldinger technique under ultrasound guidance. TLC Placement confirmed with ultrasound. The catheter was dressed with an antibiotic-containing dressing. Patient tolerated the procedure well, and no immediate complications were appreciated. Will follow up CXR. Line placement was supervised by Dr Martinez.
[2020-01-18] MEDS ORDERED: VECURONIUM BROMIDE 50 MG/50 ML VIAL IVPUSH ONE (01:29)
[2020-01-18] MEDS ORDERED: VECURONIUM BROMIDE 10 MG/10 ML VIAL ONE (01:29)
[2020-01-18] MEDS ORDERED: VECURONIUM BROMIDE 100 MG/100 ML BAG IVPB SCH (01:30)
[2020-01-18] MEDS: ACETAMINOPHEN 1000 MG/100 ML VIAL (NON FORMULARY) IVPB PRN ×2 (02:20→10:00)
[2020-01-18] MEDS ORDERED: EPINEPHrine 1:10,000 (P-F SYR) 1 MG/10 ML DISP.SYRIN IVPUSH ONE (02:47)
[2020-01-18] MEDS ORDERED: VASOPRESSIN 20 UNITS/ML VIAL IV ONE ×2 (03:03→17:02)
[2020-01-18] MEDS ORDERED: SODIUM CHLORIDE 0.45% 1,000 ML with SODIUM BICARBONATE 8.4% - 75 MEQ IV SCH (03:09)
[2020-01-18] MEDS: VASOPRESSIN 40 UNITS in SODIUM CHLORIDE 98 ML IVPB SCH (03:15)
[2020-01-18] MEDS ORDERED: NOREPINEPHRINE BITARTRATE 4 MG/4 ML ML IV ONE ×3 (04:30→19:39)
[2020-01-18 04:36] LABS: ALLENS TEST POSITIVE; ARTERIAL BLD GAS O2 SATURATION 93.3 % (95-98); ARTERIAL BLOOD GAS BASE EXCESS -4.3 mmol/L (-2-2)
[2020-01-18 04:38] LABS: ARTERIAL BLOOD GAS pH 7.19 (7.35-7.45)
[2020-01-18 07:08] LABS: BASO % 0.3 % (0-2.0); EOS % 0.1 % (0-4.5); HEMATOCRIT 41.9 % (32.4-45.2); HEMOGLOBIN 13.4 GM/dL (10.7-15.3); LYMPH % 6.6 % (8-40); MCH 30.5 pg (25.7-33.7); MCHC 31.9 g/dl (32.0-36.0); MEAN CELL VOLUME 95.8 fl (80-96); MEAN PLT VOLUME 8.5 fl (7.5-11.1); MONO % 4.9 % (3.8-10.2); NEUT % 88.1 % (42.8-82.8); PLATELET COUNT 279 K/MM3 (134-434); RBC 4.38 M/mm3 (3.60-5.2); RDW 17.5 % (11.6-15.6)
[2020-01-18 07:14] LABS: INR 1.21 (0.83-1.09); PROTHROMBIN TIME (PATIENT) 14.3 SEC (9.7-13.0)
[2020-01-18 07:46] LABS: ALBUMIN 3.2 g/dl (3.4-5.0); BILIRUBIN,TOTAL 0.6 mg/dL (0.2-1); BLOOD UREA NITROGEN 11.3 mg/dL (7-18); CALCIUM 8.5 mg/dL (8.5-10.1); CREATININE 2.1 mg/dL (0.55-1.3); MAGNESIUM 2.1 mg/dL (1.8-2.4); PHOSPHOROUS 8.5 mg/dL (2.5-4.9); POTASSIUM 4.2 mmol/L (3.5-5.1)
--- NOTE | 2020-01-18 08:04 | PN ---
Progress Note, Physician Chief Complaint: Pt on BIPAP; tachypneic; markedly hypoxic. History of Present Illness: 44 year old woman with PMH Hodgkins' lymphoma X3 s/p radiation and stem cell transplant in 2012, not on active treatment, in remission x 8 yrs, appendectomy, cholecystectomy, anxiety, obesity, presenting with SOB and myalgias. States that she has felt ill for the past 10 days with myalgias and malaise, but over the past 5 days, she has had progressively worsening SOB and SONG, associated with cough, loss of appetite, and fevers/chills. 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 Sister is a known COVID positive. Pt COVID-19 detected 12/19/2019. - Current Medication List Current Medications: Active Medications Acetaminophen (Ofirmev Injection -) 1,000 mg IVPB Q6H PRN PRN Reason: FEVER Stop: 01/18/20 19:57 Last Admin: 01/18/20 02:20 Dose: 1,000 mg Documented by: Albuterol Sulfate (Ventolin Hfa Inhaler -) 2 puff IH Q4H PRN PRN Reason: SHORT OF BREATH/WHEEZING Ascorbic Acid (Vitamin C -) 500 mg PO DAILY [facility] Last Admin: 01/17/20 12:06 Dose: 500 mg Documented by: Cholecalciferol (Vitamin D3 -) 1,000 unit PO DAILY [facility] Last Admin: 01/17/20 12:06 Dose: 1,000 unit Documented by: Enoxaparin Sodium (Lovenox -) 90 mg SQ BID [facility]ARIEL Last Admin: 01/17/20 21:37 Dose: 90 mg Documented by: Sodium Chloride (Normal Saline -) 1,000 mls @ 75 mls/hr IV ASDIR [facility] Last Admin: 01/17/20 21:37 Dose: 75 mls/hr Documented by: Midazolam HCl 100 mg/ Sodium (Chloride) 100 mls @ 1 mls/hr IVPB TITR [facility]; Protocol Last Admin: 01/18/20 00:44 Dose: 5 mg/hr, 5 mls/hr Documented by: Norepinephrine Bitartrate (Levophed Bag) 8,000 mcg in 500 mls @ 18.75 mls/hr IVPB TITR [facility]ARIEL; Protocol Last Titration: 01/18/20 04:00 Dose: 30 mcg/min, 112.5 mls/hr Documented by: Vecuronium Hartshorne (Vecuronium Hartshorne) 100 mg in 100 mls @ 5.443 mls/hr IVPB TITR [facility] Last Admin: 01/18/20 00:30 Dose: 1 mcg/kg/min, 5.443 mls/hr Documented by: Vasopressin 40 units/ Sodium (Chloride) 100 mls @ 5 mls/hr IVPB ASDIR [facility]; Protocol Last Titration: 01/18/20 04:00 Dose: 6 units/hr, 15 mls/hr Documented by: Sodium Bicarbonate 75 meq/ (Sodium Chloride) 1,075 mls @ 100 mls/hr IV ASDIR DAR[facility] Meropenem 1 gm/ Dextrose 100 mls @ 200 mls/hr IVPB Q8H-IV [facility]IEL Lactobacillus Acidophilus (Bacid -) 1 tab PO DAILY [facility] Last Admin: 01/17/20 12:06 Dose: 1 tab Documented by: Nystatin (Nystop Powder -) 1 applic TP DAILY [facility] Last Admin: 01/17/20 09:57 Dose: 1 applic Documented by: Pantoprazole Sodium (Protonix -) 40 mg PO DAILY [facility] Last Admin: 01/17/20 12:06 Dose: 40 mg Documented by: Polyethylene Glycol (Miralax (For Daily Use) -) 17 gm PO Q24H PRN PRN Reason: CONSTIPATION Last Admin: 01/11/20 11:50 Dose: 17 gm Documented by: Prednisone (Deltasone -) 20 mg PO DAILY [facility] Last Admin: 01/17/20 14:00 Dose: 20 mg Documented by: Zinc Sulfate (Orazinc -) 220 mg PO DAILY [facility] Last Admin: 01/17/20 12:06 Dose: 220 mg Documented by: - Objective Vital Signs: Vital Signs Temperature 102 F H 01/18/20 07:00 Pulse Rate 147 H 01/18/20 07:00 Respiratory Rate 30 H 01/18/20 07:00 Blood Pressure 102/64 01/18/20 07:00 O2 Sat by Pulse Oximetry (%) 81 L 01/17/20 20:23 Constitutional: Yes: Severe Distress, Obese Eyes: Yes: WNL HENT: Yes: Other Neck: Yes: Decreased ROM Cardiovascular: Yes: S1, S2 Respiratory: Yes: Diminished, On BiPap, Tachypnea Gastrointestinal: Yes: Soft Genitourinary: No: Anuria Musculoskeletal: Yes: Muscle Weakness Extremities: Yes: Cool Edema: No Peripheral Pulses WNL: No Integumentary: Yes: WNL Neurological: Yes: Weakness Psychiatric: Yes: Other Labs: CBC, BMP 01/18/20 05:30 01/18/20 05:30 INR, PTT INR 1.21 (0.83-1.09) H 01/18/20 05:30 - ....Imaging Chest X-ray: Image Reviewed EKG: Image Reviewed Problem List - Problems (1) Obesity Code(s): E66.9 - OBESITY, UNSPECIFIED (2) HTN (hypertension) Code(s): I10 - ESSENTIAL (PRIMARY) HYPERTENSION Qualifiers: Hypertension type: essential hypertension Qualified Code(s): I10 - Essential (primary) hypertension (3) NHL (non-Hodgkin's lymphoma) Code(s): C85.90 - NON-HODGKIN LYMPHOMA, UNSPECIFIED, UNSPECIFIED SITE (4) Anxiety Code(s): F41.9 - ANXIETY DISORDER, UNSPECIFIED (5) Acute respiratory failure with hypoxia Code(s): J96.01 - ACUTE RESPIRATORY FAILURE WITH HYPOXIA (6) COVID-19 Code(s): U07.1 - COVID POSITIVE (7) Sinus tachycardia Code(s): R00.0 - TACHYCARDIA, UNSPECIFIED Assessment/Plan 1. Acute hypoxic respiratory failure currently on NIPPV 2. (+) COVID 19 - pneumonitis; 2nd test: not detected. 3. HTN 4. Non Hodgkins Lymphoma in remission 5. Sinus tachycardia; multiple contributers (including anxiety; respiratory distress; ? PE; CHF). TNI < 0.02. 6. Leukocytosis, abnormal LFT, inflammatory markers and D dimer due to COVID 7. H/o DVT (on systemic anticoagulation). PLAN: Pt's condition has deteriorated; markedly hypoxic, hypercarbic; struggling for air. For ICU transfer; will likely require intubation.
[2020-01-18] MEDS ORDERED: SODIUM CHLORIDE 1,000 ML IV STA (08:30)
[2020-01-18] MEDS ORDERED: PHENYLEPHRINE NS PREMIX 25,000 MCG/250 ML BAG CVP SCH (08:45)
[2020-01-18] MEDS ORDERED: MEROPENEM 1 GM VIAL (RESTRICTED TO ID) IVPB ONE ×3 (08:55→20:56)
[2020-01-18] MEDS ORDERED: DEXTROSE 5%-WATER 100 ML IVPB ONE ×3 (08:55→20:57)
[2020-01-18] MEDS ORDERED: PT OWN MED DRAWER 7, Y5N ONE ×2 (08:56→13:19)
[2020-01-18 09:27] LABS: ANISOCYTOSIS 1+; MACROCYTOSIS 0; OVALOCYTE 1+; PLATELET ESTIMATE NORMAL; TOXIC GRANULATION 2+
[2020-01-18] MEDS: LACTOBACILLUS ACIDOPHILUS 1 TABLET PO SCH (10:00)
[2020-01-18] MEDS: ASCORBIC ACID 500 MG TABLET (FP) PO SCH (10:00)
[2020-01-18] MEDS: ZINC SULFATE 220 MG CAPSULE (FP) PO SCH (10:00)
[2020-01-18] MEDS: CHOLECALCIFEROL (VIT D3) 1,000 UNIT (25 MCG) TABLET PO SCH (10:00)
[2020-01-18] MEDS: FLUDROCORTISONE ACETATE 0.1 MG TABLET (FP) GT SCH (10:00)
[2020-01-18] MEDS ORDERED: PHENYLEPHRINE HCL 10 MG/1 ML SINGLE DOSE VIAL ONE ×2 (10:35→19:07)
[2020-01-18] MEDS: HYDROCORTISONE SOD SUCCINATE 100 MG/2 ML VIAL IVPB SCH ×3 (11:00→22:11)
[2020-01-18] MEDS ORDERED: ALTEPLASE 50MG 50 MG/50 ML VIAL IVPB ONE ×3 (11:11→12:13)
[2020-01-18] MEDS ORDERED: MORPHINE SULFATE 2 MG/ML VIAL IVPUSH PRN (11:40)
--- NOTE | 2020-01-18 11:50 | PN ---
Physical Exam: SUBJECTIVE: Patient seen and examined at bedside. Overnight ACLS protocol was utilized x2 and she was intubated. This AM she is intubated and sedated versed 5, lovephed 30, vasopressin 6, vecurronium drip. Vent settings 360/35/100%/20 OBJECTIVE: Vital Signs Period Temp Pulse Resp BP Sys/Rivera Pulse Ox Last 24 Hr 97.6 F-102 F 88-174 18-38 75-164/39-102 81-89 GENERAL: Intubated and sedated HEAD: Normal with no signs of trauma. LUNGS: Equal rise and fall of chest wall. Tachypnea. HEART: Tachycardia Laboratory Results - last 24 hr 01/17/20 01/17/20 01/18/20 07:30 23:00 03:38 WBC RBC Hgb Hct MCV MCH MCHC RDW Plt Count MPV Absolute Neuts (auto) Neutrophils % Neutrophils % (Manual) 52.1 Band Neutrophils % 5.2 Lymphocytes % Lymphocytes % (Manual) 7.3 L Monocytes % Monocytes % (Manual) 9 Eosinophils % Eosinophils % (Manual) 13.5 H Basophils % Basophils % (Manual) 2.1 H D Myelocytes % (Man) 1 D Promyelocytes % (Man) 0 Blast Cells % (Manual) 0 Nucleated RBC % 1 H Metamyelocytes 0 Hypochromia 0 Toxic Granulation Platelet Estimate Normal Platelet Comment Polychromasia 1+ Poikilocytosis 1+ Anisocytosis 1+ Microcytosis 1+ Macrocytosis 0 Spherocytes 1+ Tear Drop Cells 1+ Ovalocytes 1+ Stomatocytes Cherry Cells Schistocytes 1+ PT with INR INR PTT (Actin FS) Anticoagulation Therapy No Result Required. No Result Required. Puncture Site Left radial Left brachial ABG pH 6.99 L* 7.19 L* ABG pCO2 at Pt Temp 83.4 H* 67.0 H ABG pO2 at Pt Temp 65.3 L 83.0 ABG HCO3 19.5 L 25.2 ABG O2 Sat (Measured) 78.9 L 93.3 L ABG O2 Content No Result Required. No Result Required. ABG Base Excess -13.7 L -4.3 L Lake Test Positive Positive Patient On Oxygen Yes Yes O2 Delivery Device Vent Vent Oxygen Flow Rate 100% 100 Vent Mode A/c A/c Vent Rate 28 30 Mechanical Rate No Result Required. A/c PEEP 6.0 8.0 Pressure Support Vent 400 400 Sodium Potassium Chloride Carbon Dioxide Anion Gap BUN Creatinine Est GFR (CKD-EPI)AfAm Est GFR (CKD-EPI)NonAf Random Glucose Lactic Acid Calcium Phosphorus Magnesium Total Bilirubin AST ALT Alkaline Phosphatase Troponin I Total Protein Albumin 01/18/20 01/18/20 01/18/20 05:30 05:30 05:30 WBC 23.0 H RBC 4.38 Hgb 13.4 Hct 41.9 MCV 95.8 MCH 30.5 MCHC 31.9 L RDW 17.5 H Plt Count 279 MPV 8.5 Absolute Neuts (auto) 20.3 H Neutrophils % 88.1 H D Neutrophils % (Manual) 57.4 Band Neutrophils % 21.8 Lymphocytes % 6.6 L D Lymphocytes % (Manual) 5.0 L D Monocytes % 4.9 Monocytes % (Manual) 6 Eosinophils % 0.1 D Eosinophils % (Manual) 0.0 D Basophils % 0.3 Basophils % (Manual) 0.0 Myelocytes % (Man) 0 D Promyelocytes % (Man) 0 Blast Cells % (Manual) 0 Nucleated RBC % 2 H Metamyelocytes 1 D Hypochromia 0 Toxic Granulation 2+ Platelet Estimate Normal Platelet Comment Present Polychromasia 2+ Poikilocytosis 1+ Anisocytosis 1+ Microcytosis 1+ Macrocytosis 0 Spherocytes 1+ Tear Drop Cells Ovalocytes 1+ Stomatocytes 1+ Rebecca Cells 1+ Schistocytes PT with INR 14.30 H INR 1.21 H PTT (Actin FS) 41.0 H Anticoagulation Therapy Puncture Site ABG pH ABG pCO2 at Pt Temp ABG pO2 at Pt Temp ABG HCO3 ABG O2 Sat (Measured) ABG O2 Content ABG Base Excess Lake Test Patient On Oxygen O2 Delivery Device Oxygen Flow Rate Vent Mode Vent Rate Mechanical Rate PEEP Pressure Support Vent Sodium 145 Potassium 4.2 Chloride 102 Carbon Dioxide 31 Anion Gap 12 BUN 11.3 Creatinine 2.1 H Est GFR (CKD-EPI)AfAm 32.82 Est GFR (CKD-EPI)NonAf 28.31 Random Glucose 169 H Lactic Acid Calcium 8.5 Phosphorus 8.5 H Magnesium 2.1 Total Bilirubin 0.6 AST 724 H ALT 983 H Alkaline Phosphatase 165 H Troponin I 0.76 H* Total Protein 6.0 L Albumin 3.2 L 05/13/20 05:30 WBC RBC Hgb Hct MCV MCH MCHC RDW Plt Count MPV Absolute Neuts (auto) Neutrophils % Neutrophils % (Manual) Band Neutrophils % Lymphocytes % Lymphocytes % (Manual) Monocytes % Monocytes % (Manual) Eosinophils % Eosinophils % (Manual) Basophils % Basophils % (Manual) Myelocytes % (Man) Promyelocytes % (Man) Blast Cells % (Manual) Nucleated RBC % Metamyelocytes Hypochromia Toxic Granulation Platelet Estimate Platelet Comment Polychromasia Poikilocytosis Anisocytosis Microcytosis Macrocytosis Spherocytes Tear Drop Cells Ovalocytes Stomatocytes Cherry Cells Schistocytes PT with INR INR PTT (Actin FS) Anticoagulation Therapy Puncture Site ABG pH ABG pCO2 at Pt Temp ABG pO2 at Pt Temp ABG HCO3 ABG O2 Sat (Measured) ABG O2 Content ABG Base Excess Lake Test Patient On Oxygen O2 Delivery Device Oxygen Flow Rate Vent Mode Vent Rate Mechanical Rate PEEP Pressure Support Vent Sodium Potassium Chloride Carbon Dioxide Anion Gap BUN Creatinine Est GFR (CKD-EPI)AfAm Est GFR (CKD-EPI)NonAf Random Glucose Lactic Acid 3.8 H* Calcium Phosphorus Magnesium Total Bilirubin AST ALT Alkaline Phosphatase Troponin I Total Protein Albumin Active Medications Generic Name Dose Route Start Last Admin Trade Name Freq PRN Reason Stop Dose Admin Acetaminophen 1,000 mg 01/17/20 19:57 01/18/20 02:20 Ofirmev Injection - IVPB 01/18/20 19:57 1,000 mg Q6H PRN Administration FEVER Albuterol Sulfate 2 puff 12/28/19 15:59 Ventolin Hfa Inhaler - IH Q4H PRN SHORT OF BREATH/WHEEZING Ascorbic Acid 500 mg 12/30/19 10:00 01/17/20 12:06 Vitamin C - PO 500 mg DAILY [facility] Administration Cholecalciferol 1,000 unit 12/30/19 10:00 01/17/20 12:06 Vitamin D3 - PO 1,000 unit DAILY [facility] Administration Enoxaparin Sodium 90 mg 01/19/20 10:00 Lovenox - SQ DAILY [facility] Fludrocortisone Acetate 0.05 mg 01/18/20 10:00 Florinef - GT DAILY [facility] Hydrocortisone Sodium Succinate 50 mg 01/18/20 09:00 Solu-Cortef - IVPB Q6H-IV [facility]IEL Sodium Chloride 1,000 mls @ 75 mls/hr 01/17/20 20:00 01/17/20 21:37 Normal Saline - IV 75 mls/hr ASDIR D[facility]IEL Administration Midazolam HCl 100 mg/ Sodium 100 mls @ 1 mls/hr 01/18/20 00:15 01/18/20 00:44 Chloride IVPB 5 mg/hr TITR [facility] 5 mls/hr Administration Protocol 1 MG/HR Norepinephrine Bitartrate 8,000 mcg in 500 mls @ 18.75 mls/hr 01/18/20 00:30 01/18/20 04:00 Levophed Bag IVPB 30 mcg/min TITR [facility]IEL 112.5 mls/hr Titration Protocol 5 MCG/MIN Vasopressin 40 units/ Sodium 100 mls @ 5 mls/hr 01/18/20 03:15 01/18/20 04:00 Chloride IVPB 6 units/hr ASDIR DARIEL 15 mls/hr Titration Protocol 2 UNITS/HR Meropenem 1 gm/ Dextrose 100 mls @ 200 mls/hr 01/18/20 10:00 IVPB Q8H-IV [facility] Phenylephrine HCl 50,000 mcg in 500 mls @ 60 mls/hr 01/18/20 08:45 Paddy-Synephrine CVP TITR [facility] Protocol 100 MCG/MIN Vancomycin HCl 1,250 mg/ 250 mls @ 250 mls/2 hr 01/18/20 12:00 Dextrose IVPB DAILY@1200 [facility] Protocol Lactobacillus Acidophilus 1 tab 12/29/19 10:00 01/17/20 12:06 Bacid - PO 1 tab DAILY [facility] Administration Morphine Sulfate 2 mg 01/18/20 11:40 Morphine Sulfate IVPUSH Q4H PRN PAIN LEVEL 7 - 10 Nystatin 1 applic 01/13/20 10:00 01/17/20 09:57 Nystop Powder - TP 1 applic DAILY [facility] Administration Pantoprazole Sodium 40 mg 01/18/20 11:15 Protonix Iv IVPUSH DAILY [facility] Polyethylene Glycol 17 gm 01/09/20 17:43 01/11/20 11:50 Miralax (For Daily Use) - PO 17 gm Q24H PRN Administration CONSTIPATION Zinc Sulfate 220 mg 12/29/19 10:00 01/17/20 12:06 Orazinc - PO 220 mg DAILY [facility] Administration ASSESSMENT/PLAN: 44 y/o female PMH Hodgkins' lymphoma s/p radiation and stem cell transplant (2011), appendectomy, cholecystectomy, anxiety, who presents with acute hypoxic respiratory failure 2/2 to CoVid-19 infection now in ICU for persistent desaturation and hypotension. Unclear what precipitated acute decompensation. # Neuro. Sedated: vecuronium drip, versed 5 # Pulm CoVid-19 + (second serology status of NEG likely poor sample) Vent 360/35/100%/20 Trend ferritin, LDH, CRP # ID Meropenem 1 g q8h and Vancomycin 1250 qd Blood cultures pending # CVS + Troponins 0.76 possibly 2/2 demand ischemia VS microthrombotic process of Covid-19? PE protocol TPA (100 over 2 hours) Tachycardia # Renal Acute Kidney Injury LR @ 100 cc/hr with bolus # Tubes, Lines, Drain ETT placed 17 Jan 2020 RIGHT axillary arterial line RIGHT IJ 17 Jan 2020 Kelley # FEN LR at 100 cc/hour Cont. to monitor NPO # DVT ppx PE protocol TPA (100 over 2 hours) Hold Lovenox for 24 hrs # Disposition Full code Cont. ICU monitoring Blaine Guerrero MD Visit type - Emergency Visit Emergency Visit: No - New Patient This patient is new to me today: No - Critical Care Critical Care patient: Yes Total Critical Care Time (in minutes): 30 Critical Care Statement: The care of this patient involved high complexity decision making to prevent further life threatening deterioration of the patient's condition and/or to evaluate & treat vital organ system(s) failure or risk of failure. ATTENDING PHYSICIAN STATEMENT I saw and evaluated the patient. I reviewed the resident's note and discussed the case with the resident. I agree with the resident's findings and plan as documented. SUBJECTIVE: OBJECTIVE: ASSESSMENT AND PLAN:
[2020-01-18] MEDS: PHENYLEPHRINE NS PREMIX 50,000 MCG/500 ML BAG CVP SCH (12:00)
[2020-01-18] MEDS: MEROPENEM 1 GM in DEXTROSE 5%-WATER 100 ML IVPB SCH ×2 (12:18→17:28)
[2020-01-18] MEDS: ENOXAPARIN NA (PORCINE) 100 MG/1 ML DISP.SYRIN SQ SCH (12:25)
[2020-01-18] MEDS: predniSONE 20 MG TABLET (UD) PO SCH (12:26)
--- NOTE | 2020-01-18 12:27 | EKG ---
Test Reason : Blood Pressure : / mmHG Vent. Rate : 137 BPM Atrial Rate : 137 BPM P-R Int : 114 ms QRS Dur : 096 ms QT Int : 304 ms P-R-T Axes : 057 -60 098 degrees QTc Int : 459 ms SINUS TACHYCARDIA POSSIBLE LEFT ATRIAL ENLARGEMENT LEFT AXIS DEVIATION INCOMPLETE RIGHT BUNDLE BRANCH BLOCK LEFT VENTRICULAR HYPERTROPHY WITH REPOLARIZATION ABNORMALITY INFERIOR INFARCT , AGE UNDETERMINED ABNORMAL ECG WHEN COMPARED WITH ECG OF 20-DEC-2019 16:46, SIGNIFICANT CHANGES HAVE OCCURRED Confirmed by Kush Martines MD ([id number]) on 01/18/2020 12:27:09 PM Referred By: Confirmed By:Kush Martines MD
--- NOTE | 2020-01-18 12:30 | PN ---
Progress Note, Physician Chief Complaint: seen and examined in ICU Events last nigh noted History of Present Illness: 44yof with PMhx of lymphoma in remission, ( 8 yr) presented to ED. with SOB and myalgias x75cmpe and was found to be on 68% on RA on admission as per ED. Notes. DX with COVID PNA Developed septic shock ARDS PMH Acute Hypoxic Respiratory Failure due to ARDS due to COVID19 Pneumonitis Septic Shock Transaminitis Hodgkins lymphoma s/p radiation and stem cell transplant in 2012 - Current Medication List Current Medications: Active Medications Acetaminophen (Ofirmev Injection -) 1,000 mg IVPB Q6H PRN PRN Reason: FEVER Stop: 01/18/20 19:57 Last Admin: 01/18/20 02:20 Dose: 1,000 mg Documented by: Albuterol Sulfate (Ventolin Hfa Inhaler -) 2 puff IH Q4H PRN PRN Reason: SHORT OF BREATH/WHEEZING Ascorbic Acid (Vitamin C -) 500 mg PO DAILY [facility] Last Admin: 01/18/20 10:00 Dose: Not Given Documented by: Cholecalciferol (Vitamin D3 -) 1,000 unit PO DAILY [facility] Last Admin: 01/18/20 10:00 Dose: 1,000 unit Documented by: Enoxaparin Sodium (Lovenox -) 90 mg SQ DAILY [facility] Fludrocortisone Acetate (Florinef -) 0.05 mg GT DAILY [facility] Last Admin: 01/18/20 10:00 Dose: Not Given Documented by: Hydrocortisone Sodium Succinate (Solu-Cortef -) 50 mg IVPB Q6H-IV [facility] Last Admin: 01/18/20 11:00 Dose: 50 mg Documented by: Sodium Chloride (Normal Saline -) 1,000 mls @ 75 mls/hr IV ASDIR [facility] Last Admin: 01/17/20 21:37 Dose: 75 mls/hr Documented by: Midazolam HCl 100 mg/ Sodium (Chloride) 100 mls @ 1 mls/hr IVPB TITR [facility]; Protocol Last Admin: 01/18/20 00:44 Dose: 5 mg/hr, 5 mls/hr Documented by: Norepinephrine Bitartrate (Levophed Bag) 8,000 mcg in 500 mls @ 18.75 mls/hr IVPB TITR [facility]; Protocol Last Titration: 01/18/20 04:00 Dose: 30 mcg/min, 112.5 mls/hr Documented by: Vasopressin 40 units/ Sodium (Chloride) 100 mls @ 5 mls/hr IVPB [facility]; Protocol Last Titration: 01/18/20 04:00 Dose: 6 units/hr, 15 mls/hr Documented by: Meropenem 1 gm/ Dextrose 100 mls @ 200 mls/hr IVPB Q8H-IV [facility] Last Admin: 01/18/20 12:18 Dose: 200 mls/hr Documented by: Phenylephrine HCl (Paddy-Synephrine) 50,000 mcg in 500 mls @ 60 mls/hr CVP TITR [facility]; Protocol Last Admin: 01/18/20 12:00 Dose: 100 mcg/min, 60 mls/hr Documented by: Vancomycin HCl 1,250 mg/ (Dextrose) 250 mls @ 250 mls/2 hr IVPB DAILY@1200 [facility]; Protocol Vecuronium Mcdonough (Vecuronium Mcdonough) 100 mg in 100 mls @ 5.394 mls/hr IVPB TITR [facility]; Protocol Lactobacillus Acidophilus (Bacid -) 1 tab PO DAILY [facility] Last Admin: 01/18/20 10:00 Dose: 1 tab Documented by: Morphine Sulfate (Morphine Sulfate) 2 mg IVPUSH Q4H PRN PRN Reason: PAIN LEVEL 7 - 10 Nystatin (Nystop Powder -) 1 applic TP DAILY [facility] Last Admin: 01/17/20 09:57 Dose: 1 applic Documented by: Pantoprazole Sodium (Protonix Iv) 40 mg IVPUSH DAILY [facility] Polyethylene Glycol (Miralax (For Daily Use) -) 17 gm PO Q24H PRN PRN Reason: CONSTIPATION Last Admin: 01/11/20 11:50 Dose: 17 gm Documented by: Zinc Sulfate (Orazinc -) 220 mg PO DAILY [facility] Last Admin: 01/18/20 10:00 Dose: Not Given Documented by: - Objective Vital Signs: Vital Signs Temperature 100.7 F H 01/18/20 10:00 Pulse Rate 140 H 01/18/20 10:00 Respiratory Rate 38 H 01/18/20 10:00 Blood Pressure 109/84 01/18/20 10:00 O2 Sat by Pulse Oximetry (%) 81 L 01/17/20 20:23 Eyes: Yes: WNL, Conjunctiva Clear, EOM Intact HENT: Yes: WNL, Atraumatic, Normocephalic Neck: Yes: WNL, Supple, Trachea Midline Cardiovascular: Yes: WNL, Regular Rate and Rhythm Respiratory: Yes: Diminished, Mechanically Ventilated Gastrointestinal: Yes: WNL, Normal Bowel Sounds Genitourinary: Yes: WNL Musculoskeletal: Yes: WNL Extremities: Yes: WNL Edema: No Integumentary: Yes: WNL ...Motor Strength: WNL Psychiatric: Yes: WNL Labs: CBC, BMP 01/18/20 05:30 01/18/20 05:30 INR, PTT INR 1.21 (0.83-1.09) H 01/18/20 05:30 Problem List - Problems (1) Acute respiratory failure with hypoxia Code(s): J96.01 - ACUTE RESPIRATORY FAILURE WITH HYPOXIA (2) COVID-19 Code(s): U07.1 - COVID POSITIVE (3) Suspected COVID-19 virus infection Code(s): R68.89 - OTHER GENERAL SYMPTOMS AND SIGNS (4) Abdominal pain Code(s): R10.9 - UNSPECIFIED ABDOMINAL PAIN Qualifiers: Abdominal location: lower abdomen (5) Arm pain, left Code(s): M79.602 - PAIN IN LEFT ARM (6) Numbness Code(s): R20.0 - ANESTHESIA OF SKIN (7) Postoperative pain Code(s): G89.18 - OTHER ACUTE POSTPROCEDURAL PAIN (8) Sternal pain Code(s): R07.89 - OTHER CHEST PAIN (9) TIA (transient ischemic attack) Code(s): G45.9 - TRANSIENT CEREBRAL ISCHEMIC ATTACK, UNSPECIFIED Assessment/Plan 1. Acute hypoxic respiratory failure deterioration last 24 hrs requiring intubation hypotensive on pressors. 2. (+) COVID 19 - pneumonitis; 2nd test: not detected. 3. HTN 4. Non Hodgkins Lymphoma in remission 5. Sinus tachycardia; multiple contributers (including anxiety; respiratory distress; ? PE; CHF) 6. Leukocytosis, abnormal LFT, inflammatory markers and D dimer due to COVID 7. H/o DVT (on systemic anticoagulation). PLAN: Cont respiratory support as per ICU team ABX IV pressors IVF - patient has normal EF Condition is guarded cc time spent 37 min
[2020-01-18] MEDS: VECURONIUM BROMIDE 100 MG/100 ML BAG IVPB SCH (13:21)
[2020-01-18] MEDS: VANCOMYCIN HCL 1,250 MG in DEXTROSE 5%-WATER - 250 ML IVPB SCH (13:21)
[2020-01-18] MEDS: PANTOPRAZOLE SODIUM 40 MG VIAL IVPUSH SCH (13:21)
[2020-01-18 13:27] LABS: ARTERIAL BLD GAS O2 SATURATION 91.3 % (95-98); ARTERIAL BLOOD GAS PO2 83.3 mmHg (80-100)
[2020-01-18 13:32] LABS: ARTERIAL BLOOD GAS PCO2 84.1 mmHg (35-45)
--- NOTE | 2020-01-18 13:48 | PN ---
Teaching Attending Note Name of Resident: Blaine Guerrero ATTENDING PHYSICIAN STATEMENT I saw and evaluated the patient. I reviewed the resident's note and discussed the case with the resident. I agree with the resident's findings and plan as documented. SUBJECTIVE: Pt seen and examined in the ICU. Overnight events noted, now intubated, sedated, paralyzed on levophed and vasopressin gtts. This AM, tombstones seen on telemetry, bradycardic and then PEA arrest. ACLS started with ROSC, see code sheet for further details. OBJECTIVE: Vital Signs Period Temp Pulse Resp BP Sys/Rivera Pulse Ox Last 24 Hr 97.6 F-102 F 88-174 18-38 75-164/39-102 81-81 Intake & Output 01/15/20 01/16/20 01/17/20 01/18/20 23:59 23:59 23:59 23:59 Intake Total 1300 1040 1770 1982 Output Total 1300 50 Balance 1300 2227 300 8960 Weight 89.9 kg Gen: intubated, ssedated, paralyzed Heart: tachycardic, regular Lung: scattered rhonchi Abd: soft, nontender Ext: no edema CBC, BMP 01/18/20 05:30 01/18/20 05:30 ABG Results ABG pH 7.19 (7.35-7.45) L* 01/18/20 03:38 ABG pCO2 at Pt Temp 67.0 mmHg (35-45) H 01/18/20 03:38 ABG pO2 at Pt Temp 83.0 mmHg (80-100) 01/18/20 03:38 ABG HCO3 25.2 mmol/L (22-27) 01/18/20 03:38 ABG O2 Sat (Measured) 93.3 % (95-98) L 01/18/20 03:38 ABG O2 Content No Result Required. 01/18/20 12:44 ABG Base Excess -4.3 mmol/L (-2-2) L 01/18/20 03:38 Laboratory Tests 01/18/20 01/18/20 05:30 05:30 Lactic Acid 3.8 H* AST 724 H ALT 983 H Alkaline Phosphatase 165 H Troponin I 0.76 H* Active Medications Acetaminophen (Ofirmev Injection -) 1,000 mg IVPB Q6H PRN PRN Reason: FEVER Stop: 01/18/20 19:57 Last Admin: 01/18/20 02:20 Dose: 1,000 mg Documented by: Albuterol Sulfate (Ventolin Hfa Inhaler -) 2 puff IH Q4H PRN PRN Reason: SHORT OF BREATH/WHEEZING Ascorbic Acid (Vitamin C -) 500 mg PO DAILY [facility] Last Admin: 01/18/20 10:00 Dose: Not Given Documented by: Cholecalciferol (Vitamin D3 -) 1,000 unit PO DAILY D[facility] Last Admin: 01/18/20 10:00 Dose: 1,000 unit Documented by: Fludrocortisone Acetate (Florinef -) 0.05 mg GT DAILY D[facility] Last Admin: 01/18/20 10:00 Dose: Not Given Documented by: Hydrocortisone Sodium Succinate (Solu-Cortef -) 50 mg IVPB Q6H-IV DARIEL Last Admin: 01/18/20 11:00 Dose: 50 mg Documented by: Sodium Chloride (Normal Saline -) 1,000 mls @ 75 mls/hr IV ASDIR DARIEL Last Admin: 01/17/20 21:37 Dose: 75 mls/hr Documented by: Midazolam HCl 100 mg/ Sodium (Chloride) 100 mls @ 1 mls/hr IVPB TITR [facility]; Protocol Last Admin: 01/18/20 00:44 Dose: 5 mg/hr, 5 mls/hr Documented by: Norepinephrine Bitartrate (Levophed Bag) 8,000 mcg in 500 mls @ 18.75 mls/hr IVPB TITR [facility]ARI[facility]; Protocol Last Titration: 01/18/20 04:00 Dose: 30 mcg/min, 112.5 mls/hr Documented by: Vasopressin 40 units/ Sodium (Chloride) 100 mls @ 5 mls/hr IVPB ASDIR DARIEL; Protocol Last Titration: 01/18/20 04:00 Dose: 6 units/hr, 15 mls/hr Documented by: Meropenem 1 gm/ Dextrose 100 mls @ 200 mls/hr IVPB Q8H-IV DARIEL Last Admin: 01/18/20 12:18 Dose: 200 mls/hr Documented by: Phenylephrine HCl (Paddy-Synephrine) 50,000 mcg in 500 mls @ 60 mls/hr CVP TITR [facility]AR[facility]; Protocol Last Admin: 05/13/20 12:00 Dose: 100 mcg/min, 60 mls/hr Documented by: Vancomycin HCl 1,250 mg/ (Dextrose) 250 mls @ 250 mls/2 hr IVPB DAILY@1200 DAR[facility]EL; Protocol Last Admin: 01/18/20 13:21 Dose: 250 mls/2 hr Documented by: Vecuronium [place] (Vecuronium [place]) 100 mg in 100 mls @ 5.394 mls/hr IVPB TITR [facility]; Protocol Last Admin: 01/18/20 13:21 Dose: 1 mcg/kg/min, 5.394 mls/hr Documented by: Lactobacillus Acidophilus (Bacid -) 1 tab PO DAILY [facility] Last Admin: 01/18/20 10:00 Dose: 1 tab Documented by: Morphine Sulfate (Morphine Sulfate) 2 mg IVPUSH Q4H PRN PRN Reason: PAIN LEVEL 7 - 10 Nystatin (Nystop Powder -) 1 applic TP DAILY [facility] Last Admin: 01/17/20 09:57 Dose: 1 applic Documented by: Pantoprazole Sodium (Protonix Iv) 40 mg IVPUSH DAILY [facility] Last Admin: 01/18/20 13:21 Dose: 40 mg Documented by: Polyethylene Glycol (Miralax (For Daily Use) -) 17 gm PO Q24H PRN PRN Reason: CONSTIPATION Last Admin: 01/11/20 11:50 Dose: 17 gm Documented by: Sodium Bicarbonate (Sodium Bicarbonate 8.4% -) 50 meq IVPUSH Q4H-IV [facility]ARI[facility] Zinc Sulfate (Orazinc -) 220 mg PO DAILY [facility] Last Admin: 01/18/20 10:00 Dose: Not Given Documented by: ASSESSMENT AND PLAN: Acute Hypoxic and Hypercapneic Respiratory Failure COVID19 Pneumonia ARDS s/p Cardiac Arrest r/o STEMI r/o PE Septic Shock Lactic Acidosis Acute Kidney Injury Elevated LFTs likely Ischemic Injury h/o Hodgkin's Lymphoma - will give empiric thrombolytic - broad spectrum antibiotics - f/u cultures - titrate pressors to maintain MAP >65 - stress dose steroids - IVF to keep CVP 8-12 - monitor urine output, creatinine - trend lactate, cardiac enzymes, LFTs - monitor ABG - low tidal volume ventilation - keep Pplat <30 - allow permissive hypercapnea - sedate/NMB for vent synchrony - continue ICU monitoring - prognosis guarded critical care time spent in reviewing chart, evaluating patient and formulating plan 75 min
[2020-01-18] MEDS: NYSTATIN POWDER 100,000 UNITS/GM - 15 GM TOPICAL POWDER TP SCH (14:11)
[2020-01-18] MEDS: SODIUM BICARBONATE 8.4% 50 MEQ/50 ML VIAL IVPUSH SCH ×3 (14:11→22:11)
--- NOTE | 2020-01-18 14:11 | PROC ---
Procedure Note Procedure: PROCEDURE NOTE Emergent right axillary arterial line placed under sterile conditions using modified seldinger technique with good arterial waveform on monitor, sutured in place. Juan Nolan MD
[2020-01-18] MEDS: MORPHINE SULFATE/0.9% NACL/PF 100 MG/100 ML BAG IVPB SCH (14:24)
[2020-01-18] MEDS: PANTOPRAZOLE 40 MG TABLET PO SCH (14:25)
--- NOTE | 2020-01-18 14:38 | CONSULT ---
Consult Consult Specialty:: Nephrology Reason for Consultation:: ANJUM - History of Present Illness Chief Complaint: initially presented with shortness of breath History of Present Illness: Pt is a 44 year old female with pmhx of lymphoma (in remission for 8 years) and obesity who presented to the ER initially with shortness of breath. She has had a prolonged hospital course. She was diagnosed with covid pna. She was admitted n 12/18. She had progressive resp failure. Pt had cardiac arrest. I was called to evaluate her for ANJUM. She is making urine. She is intubated and mechanically ventilated. She is hypotensive on multiple pressors. Pt unable to give history. Chart reviewed. - History Source History Provided By: Medical Record - Past Medical History ...LMP: 05/18/18 Heme/Onc: Yes: Other (lymphoma) - Alcohol/Substance Use Hx Alcohol Use: No - Smoking History Smoking history: Never smoked Have you smoked in the past 12 months: No Aproximately how many cigarettes per day: 0 If you are a former smoker, when did you quit?: NEW YEARS - Social History Usual Living Arrangement: Alone Home Medications - Allergies Allergies/Adverse Reactions: Allergies Allergy/AdvReac Type Severity Reaction Status Date / Time No Known Allergies Allergy Verified 05/21/18 13:03 - Home Medications Home Medications: Ambulatory Orders Cetirizine HCl 10 mg PO DAILY 12/29/19 traZODone HCL [Trazodone HCl] 50 mg PO HS 12/29/19 Family Medical History Family History: Unable to Obtain Review of Systems Unable to obtain ROS, reason: intubated Physical Exam Vital Signs: Vital Signs Temperature 99.6 F 01/18/20 14:00 Pulse Rate 139 H 01/18/20 14:00 Respiratory Rate 38 H 01/18/20 14:00 Blood Pressure 91/74 01/18/20 14:00 O2 Sat by Pulse Oximetry (%) 81 L 01/17/20 20:23 Constitutional: Yes: Calm Eyes: Yes: Conjunctiva Clear Cardiovascular: Yes: S1, S2 Respiratory: Yes: Mechanically Ventilated Gastrointestinal: Yes: Soft, Abdomen, Obese Renal/: Yes: Kelley Present Musculoskeletal: Yes: Muscle Weakness Edema: No Integumentary: Yes: Tattoos Neurological: Yes: Lethargy Labs: CBC, BMP 01/18/20 05:30 05/13/20 05:30 Laboratory Tests 12/19/19 12/23/19 01/14/20 13:25 05:30 17:10 WBC Hgb ABG pH ABG pCO2 at Pt Temp ABG HCO3 Sodium Potassium Carbon Dioxide Creatinine Lactic Acid 1.3 AST ALT Troponin I COVID-19 ([facility]) Detected H Not detected 01/15/20 01/16/20 01/17/20 06:42 07:05 07:30 WBC Hgb ABG pH ABG pCO2 at Pt Temp ABG HCO3 Sodium Potassium Carbon Dioxide Creatinine 0.5 L 0.6 0.5 L Lactic Acid AST ALT Troponin I COVID-19 ([facility]) 01/17/20 01/18/20 01/18/20 07:30 05:30 05:30 WBC 8.9 23.0 H Hgb 13.4 ABG pH ABG pCO2 at Pt Temp ABG HCO3 Sodium 145 Potassium 4.2 Carbon Dioxide 31 Creatinine 2.1 H Lactic Acid AST 724 H ALT 983 H Troponin I 0.76 H* COVID-19 ([facility]) 01/18/20 01/18/20 01/18/20 05:30 12:44 16:00 WBC Hgb ABG pH 7.10 L* ABG pCO2 at Pt Temp 84.1 H* ABG HCO3 25.3 Sodium Potassium Carbon Dioxide Creatinine Lactic Acid 3.8 H* Pending AST ALT Troponin I COVID-19 ([facility]) Imaging - Results Chest X-ray: Report Reviewed Problem List - Problems (1) ANJUM (acute kidney injury) Code(s): N17.9 - ACUTE KIDNEY FAILURE, UNSPECIFIED (2) Acute hypoxemic respiratory failure Code(s): J96.01 - ACUTE RESPIRATORY FAILURE WITH HYPOXIA (3) Acute respiratory failure with hypoxia Code(s): J96.01 - ACUTE RESPIRATORY FAILURE WITH HYPOXIA (4) Anxiety Code(s): F41.9 - ANXIETY DISORDER, UNSPECIFIED (5) COVID-19 Code(s): U07.1 - COVID POSITIVE (6) HTN (hypertension) Code(s): I10 - ESSENTIAL (PRIMARY) HYPERTENSION Qualifiers: Hypertension type: essential hypertension Qualified Code(s): I10 - Essential (primary) hypertension Assessment/Plan Current Medications Generic Name Dose Route Start Last Admin Trade Name Freq PRN Reason Stop Dose Admin Acetaminophen 1,000 mg 01/17/20 19:57 01/18/20 10:00 Ofirmev Injection - IVPB 01/18/20 19:57 1,000 mg Q6H PRN Administration FEVER Albuterol Sulfate 2 puff 12/28/19 15:59 Ventolin Hfa Inhaler - IH Q4H PRN SHORT OF BREATH/WHEEZING Ascorbic Acid 500 mg 12/30/19 10:00 01/18/20 10:00 Vitamin C - PO Not Given DAILY [facility] Cholecalciferol 1,000 unit 12/30/19 10:00 01/18/20 10:00 Vitamin D3 - PO 1,000 unit DAILY [facility] Administration Fludrocortisone Acetate 0.05 mg 01/18/20 10:00 01/18/20 10:00 Florinef - GT Not Given DAILY [facility] Hydrocortisone Sodium Succinate 50 mg 01/18/20 09:00 01/18/20 14:12 Solu-Cortef - IVPB 50 mg Q6H-IV [facility]EL Administration Sodium Chloride 1,000 mls @ 75 mls/hr 01/17/20 20:00 01/17/20 21:37 Normal Saline - IV 75 mls/hr ASDIR [facility]IEL Administration Midazolam HCl 100 mg/ Sodium 100 mls @ 1 mls/hr 01/18/20 00:15 01/18/20 00:44 Chloride IVPB 5 mg/hr TITR [facility] 5 mls/hr Administration Protocol 1 MG/HR Norepinephrine Bitartrate 8,000 mcg in 500 mls @ 18.75 mls/hr 01/18/20 00:30 01/18/20 04:00 Levophed Bag IVPB 30 mcg/min TITR [facility] 112.5 mls/hr Titration Protocol 5 MCG/MIN Vasopressin 40 units/ Sodium 100 mls @ 5 mls/hr 01/18/20 03:15 01/18/20 04:00 Chloride IVPB 6 units/hr ASDIR DARIEL 15 mls/hr Titration Protocol 2 UNITS/HR Meropenem 1 gm/ Dextrose 100 mls @ 200 mls/hr 01/18/20 10:00 01/18/20 12:18 IVPB 200 mls/hr Q8H-IV DARIEL Administration Phenylephrine HCl 50,000 mcg in 500 mls @ 60 mls/hr 01/18/20 08:45 01/18/20 12:00 Paddy-Synephrine CVP 100 mcg/min TITR [facility] 60 mls/hr Administration Protocol 100 MCG/MIN Vancomycin HCl 1,250 mg/ 250 mls @ 250 mls/2 hr 01/18/20 12:00 01/18/20 13:21 Dextrose IVPB 250 mls/2 hr DAILY@1200 [facility] Administration Protocol Vecuronium [place] 100 mg in 100 mls @ 5.394 mls/hr 01/18/20 12:00 01/18/20 13:21 Vecuronium [place] IVPB 1 mcg/kg/min TITR D[facility] 5.394 mls/hr Administration Protocol 1 MCG/KG/MIN Morphine Sulfate 100 mg in 100 mls @ 4 mls/hr 01/18/20 14:00 01/18/20 14:24 Morphine 100mg/100ml-0.9% Nacl IVPB 4 mg/hr TITR [facility] 4 mls/hr Administration Protocol 4 MG/HR Lactobacillus Acidophilus 1 tab 12/29/19 10:00 01/18/20 10:00 Bacid - PO 1 tab DAILY [facility] Administration Nystatin 1 applic 01/13/20 10:00 01/18/20 14:11 Nystop Powder - TP 1 applic DAILY [facility] Administration Pantoprazole Sodium 40 mg 01/18/20 11:15 01/18/20 13:21 Protonix Iv IVPUSH 40 mg DAILY [facility] Administration Polyethylene Glycol 17 gm 01/09/20 17:43 01/11/20 11:50 Miralax (For Daily Use) - PO 17 gm Q24H PRN Administration CONSTIPATION Sodium Bicarbonate 50 meq 01/18/20 14:00 01/18/20 14:11 Sodium Bicarbonate 8.4% - IVPUSH 50 meq Q4H-IV [facility] Administration Zinc Sulfate 220 mg 12/29/19 10:00 01/18/20 10:00 Orazinc - PO Not Given DAILY [facility] Impression 1. ANJUM 2. s/p cardiac arrest 3. resp failure 4. covid pna 5. obesity 6. hx lymphoma 7. resp acidosis 8. lactic acidosis 9. ards 10. 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
[2020-01-18] MEDS: MILRINONE 20MG/100ML IVPB - 20,000 MCG/100 ML ML IVPB SCH (15:45)
[2020-01-18 16:53] VITALS: BMI 36.2
[2020-01-18] MEDS ORDERED: LACTATED RINGERS SOLUTION 1,000 ML/1,000 ML INFUS.BAG IV SCH (17:00)
[2020-01-18] MEDS: NOREPINEPHRINE BITARTRATE 16,000 MCG in SODIUM CHLORIDE 484 ML IV SCH (20:00)
[2020-01-18] MEDS: NOREPINEPHRINE BITARTRATE 8,000 MCG/500 ML BAG IVPB SCH ×2 (23:00)
[2020-01-19] MEDS ORDERED: NOREPINEPHRINE BITARTRATE 4 MG/4 ML ML IV ONE ×2 (01:04→19:33)
[2020-01-19] MEDS ORDERED: MEROPENEM 1 GM VIAL (RESTRICTED TO ID) IVPB ONE ×4 (01:19→20:37)
[2020-01-19] MEDS ORDERED: DEXTROSE 5%-WATER 100 ML IVPB ONE ×4 (01:19→20:37)
[2020-01-19] MEDS: MIDAZOLAM 100 MG in SODIUM CHLORIDE 100 ML IVPB SCH (01:35)
[2020-01-19] MEDS: MEROPENEM 1 GM in DEXTROSE 5%-WATER 100 ML IVPB SCH ×3 (01:36→17:39)
[2020-01-19] MEDS: SODIUM BICARBONATE 8.4% 50 MEQ/50 ML VIAL IVPUSH SCH ×6 (01:37→21:44)
[2020-01-19] MEDS: HYDROCORTISONE SOD SUCCINATE 100 MG/2 ML VIAL IVPB SCH ×4 (02:15→21:44)
[2020-01-19] MEDS: VASOPRESSIN 40 UNITS in SODIUM CHLORIDE 98 ML IVPB SCH (03:00)
[2020-01-19] MEDS: NOREPINEPHRINE BITARTRATE 16,000 MCG in SODIUM CHLORIDE 484 ML IV SCH (06:20)
[2020-01-19] MEDS ORDERED: AMIODARONE HCL INJECTION 450 MG in DEXTROSE 5%-WATER - 241 ML IVPB ONE (06:22)
[2020-01-19 06:41] LABS: HEMATOCRIT 35.5 % (32.4-45.2); HEMOGLOBIN 11.1 GM/dL (10.7-15.3); MCH 30.8 pg (25.7-33.7); MCHC 31.3 g/dl (32.0-36.0); MEAN CELL VOLUME 98.5 fl (80-96); MEAN PLT VOLUME 8.9 fl (7.5-11.1); PLATELET COUNT 184 K/MM3 (134-434); RBC 3.61 M/mm3 (3.60-5.2); RDW 18.1 % (11.6-15.6); WHITE BLOOD COUNT 26.2 K/mm3 (4.0-10.0)
[2020-01-19 07:01] LABS: ARTERIAL BLOOD GAS BASE EXCESS -2.2 mmol/L (-2-2); ARTERIAL BLOOD GAS PO2 84.2 mmHg (80-100)
[2020-01-19 07:06] LABS: ARTERIAL BLOOD GAS PCO2 > 100.0 mmHg (35-45); ARTERIAL BLOOD GAS pH 7.05 (7.35-7.45)
[2020-01-19 07:22] LABS: ALBUMIN 2.4 g/dl (3.4-5.0); ALK PHOS 141 U/L (45-117); ANION GAP 11 MMOL/L (8-16); BILIRUBIN,TOTAL 0.4 mg/dL (0.2-1); BLOOD UREA NITROGEN 16.5 mg/dL (7-18); CHLORIDE 104 mmol/L (98-107); CO2 29 mmol/L (21-32); CREATININE 3.4 mg/dL (0.55-1.3); GLUCOSE,RANDOM 183 mg/dL (74-106); MAGNESIUM 1.3 mg/dL (1.8-2.4); PHOSPHOROUS 8.2 mg/dL (2.5-4.9); POTASSIUM 3.9 mmol/L (3.5-5.1); SGOT/AST 1007 U/L (15-37); SGPT/ALT 1678 U/L (13-61); SODIUM 144 mmol/L (136-145); TOT PROT 4.5 g/dl (6.4-8.2)
[2020-01-19] MEDS ORDERED: VASOPRESSIN 20 UNITS/ML VIAL IV ONE ×2 (07:39→19:32)
[2020-01-19] MEDS ORDERED: PT OWN MED DRAWER 7, Y5N ONE (07:40)
[2020-01-19 07:49] LABS: CALCIUM 6.3 mg/dL (8.5-10.1)
[2020-01-19] MEDS ORDERED: PHENYLEPHRINE HCL 10 MG/1 ML SINGLE DOSE VIAL ONE ×2 (07:54→08:09)
[2020-01-19 07:58] LABS: LDH 1310 U/L (84-246)
[2020-01-19] MEDS ORDERED: CALCIUM GLUCONATE 10% - 1,000 MG/10 ML VIAL IVPUSH ONE (08:15)
--- NOTE | 2020-01-19 08:31 | RAPID ---
Physical Examination Vital Signs: Findings/Remarks: SPRAY G[employer] STRIPER was called on the patient at about 5;15 pm. patient was hypoxic to 50s while she was being cleaned. SPRAY GUN STRIPER arrived to room, patient was upright in bed, awake, complains of SOB, and anxiety. She had Bipap mask on. SBP was in 120s. HR 100, SAt O2 70% on BIPAP 20/8. she was completely awake and alert, but speaks in short sentences and become very SOB. she was placed o n her side, as she could not be prone. team calmed her down. No iV line. sat O2 increased to 80 % only intubation was discussed with patient and her sister ( over the phone). They understood that persistent hypoxia would lead to cardiac arrest, and intubation is the only intervention that might give her a chance to survive. Kaleigh and her sister agreed to intubation Malia was transferred to ICU for intubatin and further critical care. CCT 50 min Labs: CBC, BMP 01/19/20 05:30 01/19/20 05:30 Critical Care Total Critical Care Time (in minutes): 50 Critical Care Statement: The care of this patient involved high complexity decision making to prevent further life threatening deterioration of the patient's condition and/or to evaluate & treat vital organ system(s) failure or risk of failure.
[2020-01-19] MEDS ORDERED: MAGNESIUM SULF 50% (8.12 MEQ/2 ML-1 GM VIAL) IVPB ONE ×2 (08:45→09:00)
[2020-01-19] MEDS: PHENYLEPHRINE NS PREMIX 50,000 MCG/500 ML BAG CVP SCH (08:58)
[2020-01-19] MEDS: PANTOPRAZOLE SODIUM 40 MG VIAL IVPUSH SCH (08:59)
[2020-01-19] MEDS: LACTOBACILLUS ACIDOPHILUS 1 TABLET PO SCH (09:18)
[2020-01-19] MEDS: CHOLECALCIFEROL (VIT D3) 1,000 UNIT (25 MCG) TABLET PO SCH (09:18)
[2020-01-19] MEDS: NYSTATIN POWDER 100,000 UNITS/GM - 15 GM TOPICAL POWDER TP SCH (09:18)
[2020-01-19] MEDS: FLUDROCORTISONE ACETATE 0.1 MG TABLET (FP) GT SCH (09:18)
[2020-01-19] MEDS: ASCORBIC ACID 500 MG TABLET (FP) PO SCH (09:18)
[2020-01-19] MEDS: ZINC SULFATE 220 MG CAPSULE (FP) PO SCH (09:18)
[2020-01-19] MEDS ORDERED: ENOXAPARIN NA (PORCINE) 100 MG/1 ML DISP.SYRIN SQ SCH (10:00)
[2020-01-19] MEDS ORDERED: HEPARIN NA (PORCINE) 5,000 UNITS/ML 1ML VIAL IVPUSH PRN ×2 (10:12)
--- NOTE | 2020-01-19 10:15 | PN ---
Physical Exam: SUBJECTIVE: Patient seen and examined at bedside. She is s/p cardiac arrest. Overnight she demonstrated episodes of hypotension with MAPs as low as the 40s and levophed was raised to 40. OBJECTIVE: Vital Signs Period Temp Pulse Resp BP Sys/Rivera Pulse Ox Last 24 Hr 99.6 F-99.9 F 130-142 36-38 70-108/45-75 GENERAL: Intubated and sedated HEAD: Normal with no signs of trauma. LUNGS: Equal rise and fall of chest wall. Tachypnea. HEART: Tachycardia Laboratory Results - last 24 hr 01/18/20 01/18/20 01/18/20 12:44 16:00 16:00 WBC RBC Hgb Hct MCV MCH MCHC RDW Plt Count MPV Anticoagulation Therapy No Result Required. Puncture Site Arterial line ABG pH 7.10 L* ABG pCO2 at Pt Temp 84.1 H* ABG pO2 at Pt Temp 83.3 ABG HCO3 25.3 ABG O2 Sat (Measured) 91.3 L ABG O2 Content No Result Required. ABG Base Excess -6.0 L Lake Test Not applicable Patient On Oxygen Yes O2 Delivery Device Vent Oxygen Flow Rate 100% Vent Mode A/c Vent Rate 38 Mechanical Rate Yes PEEP 20.0 Pressure Support Vent 300 Sodium Potassium Chloride Carbon Dioxide Anion Gap BUN Creatinine Est GFR (CKD-EPI)AfAm Est GFR (CKD-EPI)NonAf Random Glucose Lactic Acid 4.3 H* Calcium Phosphorus Magnesium Ferritin Total Bilirubin AST ALT Alkaline Phosphatase LD Total Creatine Kinase Creatine Kinase Index CK-MB (CK-2) Troponin I Cancelled C-Reactive Protein Total Protein Albumin Vancomycin Pre-Dose 01/18/20 01/18/20 01/18/20 17:00 22:30 22:30 WBC RBC Hgb Hct MCV MCH MCHC RDW Plt Count MPV Anticoagulation Therapy Puncture Site ABG pH ABG pCO2 at Pt Temp ABG pO2 at Pt Temp ABG HCO3 ABG O2 Sat (Measured) ABG O2 Content ABG Base Excess [place] Test Patient On Oxygen O2 Delivery Device Oxygen Flow Rate Vent Mode Vent Rate Mechanical Rate PEEP Pressure Support Vent Sodium Potassium Chloride Carbon Dioxide Anion Gap BUN Creatinine Est GFR (CKD-EPI)AfAm Est GFR (CKD-EPI)NonAf Random Glucose Lactic Acid 3.9 H* Calcium Phosphorus Magnesium Ferritin Total Bilirubin AST ALT Alkaline Phosphatase LD Total Creatine Kinase 271 H Creatine Kinase Index 4.8 CK-MB (CK-2) 13.1 H Troponin I 1.07 H* 1.70 H* C-Reactive Protein Total Protein Albumin Vancomycin Pre-Dose 01/19/20 01/19/20 01/19/20 05:30 05:30 05:30 WBC 26.2 H RBC 3.61 Hgb 11.1 Hct 35.5 D MCV 98.5 H MCH 30.8 MCHC 31.3 L RDW 18.1 H Plt Count 184 D MPV 8.9 Anticoagulation Therapy Puncture Site ABG pH ABG pCO2 at Pt Temp ABG pO2 at Pt Temp ABG HCO3 ABG O2 Sat (Measured) ABG O2 Content ABG Base Excess [place] Test Patient On Oxygen O2 Delivery Device Oxygen Flow Rate Vent Mode Vent Rate Mechanical Rate PEEP Pressure Support Vent Sodium 144 Potassium 3.9 Chloride 104 Carbon Dioxide 29 Anion Gap 11 BUN 16.5 Creatinine 3.4 H Est GFR (CKD-EPI)AfAm 18.33 Est GFR (CKD-EPI)NonAf 15.81 Random Glucose 183 H Lactic Acid Calcium 6.3 L* Phosphorus 8.2 H Magnesium 1.3 L Ferritin 49267.1 H Total Bilirubin 0.4 AST 1007 H ALT 1678 H Alkaline Phosphatase 141 H LD Total 1310 H Creatine Kinase Creatine Kinase Index CK-MB (CK-2) Troponin I C-Reactive Protein < 0.3 Total Protein 4.5 L Albumin 2.4 L Vancomycin Pre-Dose 19.2 H 01/19/20 05:55 WBC RBC Hgb Hct MCV MCH MCHC RDW Plt Count MPV Anticoagulation Therapy No Result Required. Puncture Site Arterial line ABG pH 7.05 L* ABG pCO2 at Pt Temp > 100.0 H* ABG pO2 at Pt Temp 84.2 ABG HCO3 30.9 H ABG O2 Sat (Measured) 90.0 L ABG O2 Content No Result Required. ABG Base Excess -2.2 L [place] Test Not applicable Patient On Oxygen Yes O2 Delivery Device Vent Oxygen Flow Rate 100% Vent Mode A/c Vent Rate 38 Mechanical Rate Yes PEEP 15.0 Pressure Support Vent 300 Sodium Potassium Chloride Carbon Dioxide Anion Gap BUN Creatinine Est GFR (CKD-EPI)AfAm Est GFR (CKD-EPI)NonAf Random Glucose Lactic Acid Calcium Phosphorus Magnesium Ferritin Total Bilirubin AST ALT Alkaline Phosphatase LD Total Creatine Kinase Creatine Kinase Index CK-MB (CK-2) Troponin I C-Reactive Protein Total Protein Albumin Vancomycin Pre-Dose Active Medications Generic Name Dose Route Start Last Admin Trade Name Freq PRN Reason Stop Dose Admin Albuterol Sulfate 2 puff 12/28/19 15:59 Ventolin Hfa Inhaler - IH Q4H PRN SHORT OF BREATH/WHEEZING Ascorbic Acid 500 mg 12/30/19 10:00 01/19/20 09:18 Vitamin C - PO Not Given DAILY [facility] Cholecalciferol 1,000 unit 12/30/19 10:00 01/19/20 09:18 Vitamin D3 - PO Not Given DAILY [facility] Fludrocortisone Acetate 0.05 mg 01/18/20 10:00 01/19/20 09:18 Florinef - GT Not Given DAILY [facility] Heparin Sodium (Porcine) 1,000 unit 01/19/20 10:12 Heparin - IVPUSH PRN PRN Heparin Heparin Sodium (Porcine) 5,000 unit 01/19/20 10:12 Heparin - IVPUSH PRN PRN Heparin Hydrocortisone Sodium Succinate 50 mg 01/18/20 09:00 01/19/20 08:58 Solu-Cortef - IVPB 50 mg Q6H-IV DARIEL Administration Midazolam HCl 100 mg/ Sodium 100 mls @ 1 mls/hr 01/18/20 00:15 01/19/20 01:35 Chloride IVPB Not Given TITR DARIEL Protocol 1 MG/HR Vasopressin 40 units/ Sodium 100 mls @ 5 mls/hr 01/18/20 03:15 01/19/20 03:00 Chloride IVPB 6 units/hr ASDIR DARIEL 15 mls/hr Administration Protocol 2 UNITS/HR Meropenem 1 gm/ Dextrose 100 mls @ 200 mls/hr 01/18/20 10:00 01/19/20 08:59 IVPB 200 mls/hr Q8H-IV DARIEL Administration Phenylephrine HCl 50,000 mcg in 500 mls @ 60 mls/hr 01/18/20 08:45 01/19/20 08:58 Paddy-Synephrine CVP 300 mcg/min TITR DARIEL 180 mls/hr Administration Protocol 100 MCG/MIN Vancomycin HCl 1,250 mg/ 250 mls @ 250 mls/2 hr 01/18/20 12:00 01/18/20 13:21 Dextrose IVPB 250 mls/2 hr DAILY@1200 DARIEL Administration Protocol Vecuronium [place] 100 mg in 100 mls @ 5.394 mls/hr 01/18/20 12:00 01/18/20 20:00 Vecuronium [place] IVPB 1 mcg/kg/min TITR [facility] 5.394 mls/hr Titration Protocol 1 MCG/KG/MIN Morphine Sulfate 100 mg in 100 mls @ 4 mls/hr 01/18/20 14:00 01/18/20 20:00 Morphine 100mg/100ml-0.9% Nacl IVPB 2 mg/hr TITR [facility]ARI[facility] 2 mls/hr Infusion Protocol 4 MG/HR Milrinone Lactate/Dextrose 20,000 mcg in 100 mls @ 5.394 mls/hr 01/18/20 15:30 01/19/20 09:00 Milrinone 20mg/100ml Ivpb - IVPB 0.4 mcg/kg/min TITR [facility] 10.788 mls/hr Titration Protocol 0.2 MCG/KG/MIN Norepinephrine Bitartrate 16, 500 mls @ 9.375 mls/hr 01/19/20 06:00 01/19/20 06:20 000 mcg/ Sodium Chloride IV 40 mcg/min TITR [facility] 75 mls/hr Administration Protocol 5 MCG/MIN Heparin Sodium (Porcine) 25, 500 mls @ 20 mls/hr 01/19/20 12:00 000 unit/ Sodium Chloride IV TITR [facility] Protocol 1,000 UNIT/HR Lactobacillus Acidophilus 1 tab 12/29/19 10:00 01/19/20 09:18 Bacid - PO Not Given DAILY [facility] Nystatin 1 applic 01/13/20 10:00 01/19/20 09:18 Nystop Powder - TP Not Given DAILY [facility] Pantoprazole Sodium 40 mg 01/18/20 11:15 01/19/20 08:59 Protonix Iv IVPUSH 40 mg DAILY [facility] Administration Polyethylene Glycol 17 gm 01/09/20 17:43 01/11/20 11:50 Miralax (For Daily Use) - PO 17 gm Q24H PRN Administration CONSTIPATION Sodium Bicarbonate 50 meq 01/18/20 14:00 01/19/20 08:59 Sodium Bicarbonate 8.4% - IVPUSH 50 meq Q4H-IV DARIEL Administration Zinc Sulfate 220 mg 12/29/19 10:00 01/19/20 09:18 Orazinc - PO Not Given DAILY [facility] ASSESSMENT/PLAN: 44 y/o female PMH Hodgkins' lymphoma s/p radiation and stem cell transplant (2011), appendectomy, cholecystectomy, anxiety, who presents with acute hypoxic respiratory failure 2/2 to CoVid-19 infection now in ICU for persistent desaturation and hypotension. Unclear what precipitated acute decompensation. Presently on Milrenone, vasopressin, levo, phenylephrine # Neuro. Sedated: versed, morphine # Pulm ARDS CoVid-19 + (second serology status of NEG likely poor sample) Vent 360/35/100%/20 Trend ferritin and LDH up. CRP NL. # ID Meropenem 1 g q8h and Vancomycin 1250 qd Blood cultures pending # CVS + Troponins trending down now; troponemia possibly 2/2 demand ischemia VS microthrombotic process of Covid-19? Heparin protocol Tachycardia # Renal Oliguria Acute Kidney Injury Hold IVF given numbers of drips and concurrent piggy-backs # ENDO Hypocalcemia, repleting # GI Transaminitis likely 2/2 ischemia # Tubes, Lines, Drain ETT placed 17 Jan 2020 RIGHT axillary arterial line RIGHT IJ 17 Jan 2020 Kelley # FEN Hold IVF Cont. to monitor NPO # DVT ppx Hep PE protocol at noon today. # Disposition Full code Cont. ICU monitoring Blaine Guerrero MD Visit type - Emergency Visit Emergency Visit: No - New Patient This patient is new to me today: No - Critical Care Critical Care patient: Yes Total Critical Care Time (in minutes): 30 Critical Care Statement: The care of this patient involved high complexity decision making to prevent further life threatening deterioration of the patient's condition and/or to evaluate & treat vital organ system(s) failure or risk of failure. ATTENDING PHYSICIAN STATEMENT I saw and evaluated the patient. I reviewed the resident's note and discussed the case with the resident. I agree with the resident's findings and plan as documented. SUBJECTIVE: OBJECTIVE: ASSESSMENT AND PLAN:
[2020-01-19 11:37] LABS: ARTERIAL BLD GAS O2 SATURATION 77.9 % (95-98); ARTERIAL BLOOD GAS BASE EXCESS -2.3 mmol/L (-2-2); ARTERIAL BLOOD GAS PCO2 62.1 mmHg (35-45)
[2020-01-19 11:39] LABS: ARTERIAL BLOOD GAS pH 7.24 (7.35-7.45)
[2020-01-19] MEDS: VANCOMYCIN HCL 1,250 MG in DEXTROSE 5%-WATER - 250 ML IVPB SCH (11:44)
[2020-01-19] MEDS: HEPARIN - 25,000 UNIT in SODIUM CHLORIDE 495 ML IV SCH (11:44)
--- NOTE | 2020-01-19 11:56 | PN ---
Teaching Attending Note Name of Resident: Blaine Guerrero ATTENDING PHYSICIAN STATEMENT I saw and evaluated the patient. I reviewed the resident's note and discussed the case with the resident. I agree with the resident's findings and plan as documented. SUBJECTIVE: Pt seen and examined in the ICU. Overnight events noted, now intubated, sedated, paralyzed on levophed, vasopressin, phenylephrine, milrinone gtts. Oliguric yesterday. No fevers recorded. No bleeding noted after tPA infusion. Oxygenation improving. OBJECTIVE: Vital Signs Period Temp Pulse Resp BP Sys/Rivrea Pulse Ox Last 24 Hr 97.6 F-99.9 F 130-142 36-40 70-110/45-75 Intake & Output 01/16/20 01/17/20 01/18/20 01/19/20 23:59 23:59 23:59 23:59 Intake Total 1040 1770 8902.2 2979.6 Output Total 1300 50 100 Balance 9966 836 9736.2 2879.6 Weight 89.9 kg 92.164 kg Gen: intubated, sedated, paralyzed Heart: tachycardic, regular Lung: scattered rhonchi Abd: soft, nontender Ext: no edema CBC, BMP 01/19/20 05:30 01/19/20 05:30 Laboratory Tests 01/19/20 05:30 Ferritin 08584.1 H LD Total 1310 H C-Reactive Protein < 0.3 Troponin, BNP 01/18/20 01/18/20 01/18/20 16:00 17:00 22:30 Troponin I Cancelled 1.07 H* 1.70 H* 01/19/20 05:30 Troponin I 1.26 H* ABG Results ABG pH 7.05 (7.35-7.45) L* 01/19/20 05:55 ABG pCO2 at Pt Temp > 100.0 mmHg (35-45) H* 01/19/20 05:55 ABG pO2 at Pt Temp 84.2 mmHg (80-100) 01/19/20 05:55 ABG HCO3 30.9 mmol/L (22-27) H 01/19/20 05:55 ABG O2 Sat (Measured) 90.0 % (95-98) L 01/19/20 05:55 ABG O2 Content No Result Required. 01/19/20 10:28 ABG Base Excess -2.2 mmol/L (-2-2) L 01/19/20 05:55 ASSESSMENT AND PLAN: Acute Hypoxic and Hypercapneic Respiratory Failure COVID19 Pneumonia ARDS s/p Cardiac Arrest r/o STEMI r/o PE Septic Shock Lactic Acidosis Acute Kidney Injury Elevated LFTs likely Ischemic Injury h/o Hodgkin's Lymphoma - s/p empiric tPA - broad spectrum antibiotics - f/u cultures - titrate pressors, inotropes to maintain MAP >65 - stress dose steroids - IVF to keep CVP 8-12 - monitor urine output, creatinine - trend lactate, cardiac enzymes, LFTs - monitor ABG - low tidal volume ventilation, adjusted settings - keep Pplat <30 - allow permissive hypercapnea - bicarb - sedate/NMB for vent synchrony - continue ICU monitoring - prognosis guarded critical care time spent in reviewing chart, evaluating patient and formulating plan 35 min
[2020-01-19] MEDS ORDERED: INSULIN (NOVOLOG) ASPART 100 UNITS/ML 10ML VIAL ONE (12:27)
[2020-01-19] MEDS: VECURONIUM BROMIDE 100 MG/100 ML BAG IVPB SCH (12:39)
[2020-01-19] MEDS ORDERED: MAGNESIUM SULF 50% (8.12 MEQ/2 ML-1 GM VIAL) ONE (13:55)
--- NOTE | 2020-01-19 14:53 | PN ---
Progress Note, Physician History of Present Illness: Pt seen and examined at bedside. She remains in the ICU. She remains intubated. - Current Medication List Current Medications: Active Medications Albuterol Sulfate (Ventolin Hfa Inhaler -) 2 puff IH Q4H PRN PRN Reason: SHORT OF BREATH/WHEEZING Ascorbic Acid (Vitamin C -) 500 mg PO DAILY [facility] Last Admin: 01/19/20 09:18 Dose: Not Given Documented by: Cholecalciferol (Vitamin D3 -) 1,000 unit PO DAILY [facility] Last Admin: 01/19/20 09:18 Dose: Not Given Documented by: Fludrocortisone Acetate (Florinef -) 0.05 mg GT DAILY [facility] Last Admin: 01/19/20 09:18 Dose: Not Given Documented by: Heparin Sodium (Porcine) (Heparin -) 1,000 unit IVPUSH PRN PRN PRN Reason: Heparin Heparin Sodium (Porcine) (Heparin -) 5,000 unit IVPUSH PRN PRN PRN Reason: Heparin Hydrocortisone Sodium Succinate (Solu-Cortef -) 50 mg IVPB Q6H-IV [facility] Last Admin: 01/19/20 14:30 Dose: 50 mg Documented by: Midazolam HCl 100 mg/ Sodium (Chloride) 100 mls @ 1 mls/hr IVPB TITR [facility]; Protocol Last Admin: 01/19/20 01:35 Dose: Not Given Documented by: Vasopressin 40 units/ Sodium (Chloride) 100 mls @ 5 mls/hr IVPB ASDIR [facility]; Protocol Last Admin: 01/19/20 03:00 Dose: 6 units/hr, 15 mls/hr Documented by: Meropenem 1 gm/ Dextrose 100 mls @ 200 mls/hr IVPB Q8H-IV [facility] Last Admin: 01/19/20 08:59 Dose: 200 mls/hr Documented by: Phenylephrine HCl (Paddy-Synephrine) 50,000 mcg in 500 mls @ 60 mls/hr CVP TITR [facility]; Protocol Last Titration: 01/19/20 12:41 Dose: 150 mcg/min, 90 mls/hr Documented by: Vancomycin HCl 1,250 mg/ (Dextrose) 250 mls @ 250 mls/2 hr IVPB DAILY@1200 [facility]; Protocol Last Admin: 01/19/20 11:44 Dose: 250 mls/2 hr Documented by: Vecuronium [place] (Vecuronium [place]) 100 mg in 100 mls @ 5.394 mls/hr IVPB TITR [facility]; Protocol Last Admin: 01/19/20 12:39 Dose: 1 mcg/kg/min, 5.394 mls/hr Documented by: Morphine Sulfate (Morphine 100mg/100ml-0.9% Nacl) 100 mg in 100 mls @ 4 mls/hr IVPB TITR [facility]; Protocol Last Infusion: 01/18/20 20:00 Dose: 2 mg/hr, 2 mls/hr Documented by: Milrinone Lactate/Dextrose (Milrinone 20mg/100ml Ivpb -) 20,000 mcg in 100 mls @ 5.394 mls/hr IVPB TITR [facility]; Protocol Last Titration: 01/19/20 09:00 Dose: 0.4 mcg/kg/min, 10.788 mls/hr Documented by: Norepinephrine Bitartrate 16, (000 mcg/ Sodium Chloride) 500 mls @ 9.375 mls/hr IV TITR [facility]; Protocol Last Titration: 01/19/20 08:00 Dose: 30 mcg/min, 56.25 mls/hr Documented by: Heparin Sodium (Porcine) 25, (000 unit/ Sodium Chloride) 500 mls @ 20 mls/hr IV TITR [facility]; Protocol Last Admin: 01/19/20 11:44 Dose: 1,000 unit/hr, 20 mls/hr Documented by: Lactobacillus Acidophilus (Bacid -) 1 tab PO DAILY [facility] Last Admin: 01/19/20 09:18 Dose: Not Given Documented by: Nystatin (Nystop Powder -) 1 applic TP DAILY [facility] Last Admin: 01/19/20 09:18 Dose: Not Given Documented by: Pantoprazole Sodium (Protonix Iv) 40 mg IVPUSH DAILY [facility] Last Admin: 01/19/20 08:59 Dose: 40 mg Documented by: Polyethylene Glycol (Miralax (For Daily Use) -) 17 gm PO Q24H PRN PRN Reason: CONSTIPATION Last Admin: 01/11/20 11:50 Dose: 17 gm Documented by: Sodium Bicarbonate (Sodium Bicarbonate 8.4% -) 50 meq IVPUSH Q4H-IV [facility] Last Admin: 01/19/20 14:30 Dose: 50 meq Documented by: Zinc Sulfate (Orazinc -) 220 mg PO DAILY [facility] Last Admin: 01/19/20 09:18 Dose: Not Given Documented by: - Objective Vital Signs: Vital Signs Temperature 97.6 F 01/19/20 10:00 Pulse Rate 129 H 01/19/20 14:00 Respiratory Rate 40 H 01/19/20 14:00 Blood Pressure 117/72 01/19/20 14:00 O2 Sat by Pulse Oximetry (%) 90 L 01/19/20 13:49 Constitutional: Yes: Calm Eyes: Yes: Conjunctiva Clear HENT: Yes: Atraumatic Neck: Yes: Supple Cardiovascular: Yes: S1, S2 Respiratory: Yes: Mechanically Ventilated Gastrointestinal: Yes: Soft, Abdomen, Obese Genitourinary: Yes: Kelley Present Musculoskeletal: Yes: Muscle Weakness Edema: LLE: Trace, RLE: Trace Integumentary: Yes: Tattoos Neurological: Yes: Lethargy Labs: CBC, BMP 01/19/20 05:30 01/19/20 05:30 INR, PTT INR 1.21 (0.83-1.09) H 01/18/20 05:30 - ....Imaging Chest X-ray: Report Reviewed Problem List - Problems (1) ANJUM (acute kidney injury) Code(s): N17.9 - ACUTE KIDNEY FAILURE, UNSPECIFIED (2) Acute hypoxemic respiratory failure Code(s): J96.01 - ACUTE RESPIRATORY FAILURE WITH HYPOXIA (3) Acute respiratory failure with hypoxia Code(s): J96.01 - ACUTE RESPIRATORY FAILURE WITH HYPOXIA (4) Anxiety Code(s): F41.9 - ANXIETY DISORDER, UNSPECIFIED (5) COVID-19 Code(s): U07.1 - COVID POSITIVE (6) HTN (hypertension) Code(s): I10 - ESSENTIAL (PRIMARY) HYPERTENSION Qualifiers: Hypertension type: essential hypertension Qualified Code(s): I10 - Essential (primary) hypertension Assessment/Plan Current Medications Generic Name Dose Route Start Last Admin Trade Name Freq PRN Reason Stop Dose Admin Albuterol Sulfate 2 puff 12/28/19 15:59 Ventolin Hfa Inhaler - IH Q4H PRN SHORT OF BREATH/WHEEZING Ascorbic Acid 500 mg 12/30/19 10:00 01/19/20 09:18 Vitamin C - PO Not Given DAILY [facility] Cholecalciferol 1,000 unit 12/30/19 10:00 01/19/20 09:18 Vitamin D3 - PO Not Given DAILY [facility] Fludrocortisone Acetate 0.05 mg 01/18/20 10:00 01/19/20 09:18 Florinef - GT Not Given DAILY [facility] Heparin Sodium (Porcine) 1,000 unit 01/19/20 10:12 Heparin - IVPUSH PRN PRN Heparin Heparin Sodium (Porcine) 5,000 unit 01/19/20 10:12 Heparin - IVPUSH PRN PRN Heparin Hydrocortisone Sodium Succinate 50 mg 01/18/20 09:00 01/19/20 14:30 Solu-Cortef - IVPB 50 mg Q6H-IV [facility] Administration Midazolam HCl 100 mg/ Sodium 100 mls @ 1 mls/hr 01/18/20 00:15 01/19/20 01:35 Chloride IVPB Not Given TITR [facility] Protocol 1 MG/HR Vasopressin 40 units/ Sodium 100 mls @ 5 mls/hr 01/18/20 03:15 01/19/20 03:00 Chloride IVPB 6 units/hr ASDIR [facility] 15 mls/hr Administration Protocol 2 UNITS/HR Meropenem 1 gm/ Dextrose 100 mls @ 200 mls/hr 01/18/20 10:00 01/19/20 08:59 IVPB 200 mls/hr Q8H-IV [facility] Administration Phenylephrine HCl 50,000 mcg in 500 mls @ 60 mls/hr 01/18/20 08:45 01/19/20 12:41 Paddy-Synephrine CVP 150 mcg/min TITR [facility] 90 mls/hr Titration Protocol 100 MCG/MIN Vancomycin HCl 1,250 mg/ 250 mls @ 250 mls/2 hr 01/18/20 12:00 01/19/20 11:44 Dextrose IVPB 250 mls/2 hr DAILY@1200 [facility] Administration Protocol Vecuronium [place] 100 mg in 100 mls @ 5.394 mls/hr 01/18/20 12:00 01/19/20 12:39 Vecuronium [place] IVPB 1 mcg/kg/min TITR [facility] 5.394 mls/hr Administration Protocol 1 MCG/KG/MIN Morphine Sulfate 100 mg in 100 mls @ 4 mls/hr 01/18/20 14:00 01/18/20 20:00 Morphine 100mg/100ml-0.9% Nacl IVPB 2 mg/hr TITR [facility] 2 mls/hr Infusion Protocol 4 MG/HR Milrinone Lactate/Dextrose 20,000 mcg in 100 mls @ 5.394 mls/hr 01/18/20 15:30 01/19/20 09:00 Milrinone 20mg/100ml Ivpb - IVPB 0.4 mcg/kg/min TITR [facility] 10.788 mls/hr Titration Protocol 0.2 MCG/KG/MIN Norepinephrine Bitartrate 16, 500 mls @ 9.375 mls/hr 01/19/20 06:00 01/19/20 08:00 000 mcg/ Sodium Chloride IV 30 mcg/min TITR [facility] 56.25 mls/hr Titration Protocol 5 MCG/MIN Heparin Sodium (Porcine) 25, 500 mls @ 20 mls/hr 01/19/20 12:00 01/19/20 11:44 000 unit/ Sodium Chloride IV 1,000 unit/hr TITR [facility] 20 mls/hr Administration Protocol 1,000 UNIT/HR Lactobacillus Acidophilus 1 tab 12/29/19 10:00 01/19/20 09:18 Bacid - PO Not Given DAILY [facility] Nystatin 1 applic 01/13/20 10:00 01/19/20 09:18 Nystop Powder - TP Not Given DAILY [facility] Pantoprazole Sodium 40 mg 01/18/20 11:15 01/19/20 08:59 Protonix Iv IVPUSH 40 mg DAILY [facility] Administration Polyethylene Glycol 17 gm 01/09/20 17:43 01/11/20 11:50 Miralax (For Daily Use) - PO 17 gm Q24H PRN Administration CONSTIPATION Sodium Bicarbonate 50 meq 01/18/20 14:00 01/19/20 14:30 Sodium Bicarbonate 8.4% - IVPUSH 50 meq Q4H-IV [facility] Administration Zinc Sulfate 220 mg 12/29/19 10:00 01/19/20 09:18 Orazinc - PO Not Given DAILY [facility] Impression 1. ANJUM 2. s/p cardiac arrest 3. resp failure 4. covid pna 5. obesity 6. hx lymphoma 7. resp acidosis 8. lactic acidosis 9. ards 10. elevated lfts Plan - renal function worsening - pt is making urine - potassium stable - cont pressors - vent support - likely atn post arrest - discussed with ICU team - cont ICU care - lung protective ventilation
[2020-01-19] MEDS: MILRINONE 20MG/100ML IVPB - 20,000 MCG/100 ML ML IVPB SCH (17:39)
[2020-01-19] MEDS: MORPHINE SULFATE/0.9% NACL/PF 100 MG/100 ML BAG IVPB SCH (17:39)
[2020-01-20] MEDS: MEROPENEM 1 GM in DEXTROSE 5%-WATER 100 ML IVPB SCH ×3 (01:53→19:27)
[2020-01-20] MEDS: SODIUM BICARBONATE 8.4% 50 MEQ/50 ML VIAL IVPUSH SCH ×3 (01:53→10:00)
[2020-01-20] MEDS: MIDAZOLAM 100 MG in SODIUM CHLORIDE 100 ML IVPB SCH (02:26)
[2020-01-20] MEDS: HYDROCORTISONE SOD SUCCINATE 100 MG/2 ML VIAL IVPB SCH ×3 (02:27→15:28)
[2020-01-20] MEDS: MILRINONE 20MG/100ML IVPB - 20,000 MCG/100 ML ML IVPB SCH (02:30)
[2020-01-20] MEDS: NOREPINEPHRINE BITARTRATE 16,000 MCG in SODIUM CHLORIDE 484 ML IV SCH ×2 (02:31→05:46)
[2020-01-20] MEDS: PHENYLEPHRINE NS PREMIX 50,000 MCG/500 ML BAG CVP SCH (02:31)
[2020-01-20] MEDS: VECURONIUM BROMIDE 100 MG/100 ML BAG IVPB SCH (02:32)
[2020-01-20] MEDS: VASOPRESSIN 40 UNITS in SODIUM CHLORIDE 98 ML IVPB SCH (05:46)
--- NOTE | 2020-01-20 06:02 | PN ---
Progress Note, Physician Chief Complaint: Pt is intubated. s/p respiratory failure; cardiac arrest. History of Present Illness: 44 year old woman with PMH Hodgkins' lymphoma X3 s/p radiation and stem cell transplant in 2012, not on active treatment, in remission x 8 yrs, appendectomy, cholecystectomy, anxiety, obesity, presenting with SOB and myalgias. States that she has felt ill for the past 10 days with myalgias and malaise, but over the past 5 days, she has had progressively worsening SOB and SONG, associated with cough, loss of appetite, and fevers/chills. 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 Sister is a known COVID positive. Pt COVID-19 detected 12/19/2019. Pt's respiratory status deteriorated; she was transferred to ICU 01/17/20. - Current Medication List Current Medications: Active Medications Albuterol Sulfate (Ventolin Hfa Inhaler -) 2 puff IH Q4H PRN PRN Reason: SHORT OF BREATH/WHEEZING Ascorbic Acid (Vitamin C -) 500 mg PO DAILY [facility] Last Admin: 01/19/20 09:18 Dose: Not Given Documented by: Cholecalciferol (Vitamin D3 -) 1,000 unit PO DAILY [facility] Last Admin: 01/19/20 09:18 Dose: Not Given Documented by: Fludrocortisone Acetate (Florinef -) 0.05 mg GT DAILY [facility] Last Admin: 01/19/20 09:18 Dose: Not Given Documented by: Heparin Sodium (Porcine) (Heparin -) 1,000 unit IVPUSH PRN PRN PRN Reason: Heparin Heparin Sodium (Porcine) (Heparin -) 5,000 unit IVPUSH PRN PRN PRN Reason: Heparin Hydrocortisone Sodium Succinate (Solu-Cortef -) 50 mg IVPB Q6H-IV [facility] Last Admin: 01/20/20 02:27 Dose: 50 mg Documented by: Midazolam HCl 100 mg/ Sodium (Chloride) 100 mls @ 1 mls/hr IVPB TITR [facility]; Protocol Last Admin: 01/20/20 02:26 Dose: Not Given Documented by: Vasopressin 40 units/ Sodium (Chloride) 100 mls @ 5 mls/hr IVPB ASDIR [facility]; Protocol Last Admin: 01/20/20 05:46 Dose: Not Given Documented by: Meropenem 1 gm/ Dextrose 100 mls @ 200 mls/hr IVPB Q8H-IV [facility] Last Admin: 01/20/20 01:53 Dose: 200 mls/hr Documented by: Phenylephrine HCl (Paddy-Synephrine) 50,000 mcg in 500 mls @ 60 mls/hr CVP TITR [facility]; Protocol Last Admin: 01/20/20 02:31 Dose: 80 mcg/min, 48 mls/hr Documented by: Vancomycin HCl 1,250 mg/ (Dextrose) 250 mls @ 250 mls/2 hr IVPB DAILY@1200 [facility]; Protocol Last Admin: 01/19/20 11:44 Dose: 250 mls/2 hr Documented by: Vecuronium [place] (Vecuronium [place]later) 100 mg in 100 mls @ 5.394 mls/hr IVPB TITR [facility]; Protocol Last Admin: 01/20/20 02:32 Dose: 1 mcg/kg/min, 5.394 mls/hr Documented by: Morphine Sulfate (Morphine 100mg/100ml-0.9% Nacl) 100 mg in 100 mls @ 4 mls/hr IVPB TITR [facility]; Protocol Last Infusion: 01/19/20 20:00 Dose: 4 mg/hr, 4 mls/hr Documented by: Milrinone Lactate/Dextrose (Milrinone 20mg/100ml Ivpb -) 20,000 mcg in 100 mls @ 5.394 mls/hr IVPB TITR [facility]; Protocol Last Admin: 01/20/20 02:30 Dose: 0.4 mcg/kg/min, 10.788 mls/hr Documented by: Norepinephrine Bitartrate 16, (000 mcg/ Sodium Chloride) 500 mls @ 9.375 mls/hr IV TITR [facility]; Protocol Last Admin: 01/20/20 05:46 Dose: Not Given Documented by: Heparin Sodium (Porcine) 25, (000 unit/ Sodium Chloride) 500 mls @ 20 mls/hr IV TITR [facility]; Protocol Last Titration: 01/19/20 19:00 Dose: 1,000 unit/hr, 20 mls/hr Documented by: Lactobacillus Acidophilus (Bacid -) 1 tab PO DAILY [facility] Last Admin: 01/19/20 09:18 Dose: Not Given Documented by: Nystatin (Nystop Powder -) 1 applic TP DAILY [facility] Last Admin: 01/19/20 09:18 Dose: Not Given Documented by: Pantoprazole Sodium (Protonix Iv) 40 mg IVPUSH DAILY [facility] Last Admin: 01/19/20 08:59 Dose: 40 mg Documented by: Polyethylene Glycol (Miralax (For Daily Use) -) 17 gm PO Q24H PRN PRN Reason: CONSTIPATION Last Admin: 01/11/20 11:50 Dose: 17 gm Documented by: Sodium Bicarbonate (Sodium Bicarbonate 8.4% -) 50 meq IVPUSH Q4H-IV [facility] Last Admin: 01/20/20 05:46 Dose: 50 meq Documented by: Zinc Sulfate (Orazinc -) 220 mg PO DAILY [facility] Last Admin: 01/19/20 09:18 Dose: Not Given Documented by: - Objective Vital Signs: Vital Signs Temperature 98 F 01/20/20 05:38 Pulse Rate 137 H 01/20/20 05:38 Respiratory Rate 40 H 01/20/20 05:38 Blood Pressure 101/48 L 01/20/20 05:38 O2 Sat by Pulse Oximetry (%) 90 L 01/20/20 04:30 Constitutional: Yes: Obese Eyes: Yes: WNL HENT: Yes: Other Neck: Yes: Decreased ROM Cardiovascular: Yes: Tachycardia, S1, S2 Respiratory: Yes: Diminished, Mechanically Ventilated, Tachypnea Gastrointestinal: Yes: Soft, Abdomen, Obese Genitourinary: Yes: Anuria, Kelley Present Extremities: Yes: Cool Edema: No Peripheral Pulses WNL: No Integumentary: Yes: Tattoos Neurological: Yes: Unresponsive (intubated; sedated; and on vercuronium) Psychiatric: Yes: Other Labs: CBC, BMP 01/19/20 05:30 01/19/20 05:30 INR, PTT INR 1.21 (0.83-1.09) H 01/18/20 05:30 - ....Imaging Chest X-ray: Image Reviewed EKG: Image Reviewed Problem List - Problems (1) Obesity Code(s): E66.9 - OBESITY, UNSPECIFIED (2) HTN (hypertension) Code(s): I10 - ESSENTIAL (PRIMARY) HYPERTENSION Qualifiers: Hypertension type: essential hypertension Qualified Code(s): I10 - Essential (primary) hypertension (3) NHL (non-Hodgkin's lymphoma) Code(s): C85.90 - NON-HODGKIN LYMPHOMA, UNSPECIFIED, UNSPECIFIED SITE (4) Anxiety Code(s): F41.9 - ANXIETY DISORDER, UNSPECIFIED (5) Acute respiratory failure with hypoxia Code(s): J96.01 - ACUTE RESPIRATORY FAILURE WITH HYPOXIA (6) COVID-19 Code(s): U07.1 - COVID POSITIVE (7) Sinus tachycardia Code(s): R00.0 - TACHYCARDIA, UNSPECIFIED Assessment/Plan 1. Acute hypoxic respiratory failure deterioration last 24 hrs requiring intubation hypotensive on pressors. 2. Cardiac arrest; TNI elevation; r/o STEMI 3. (+) COVID 19 - pneumonitis; 2nd test: not detected. 4. Non Hodgkins Lymphoma in remission 5. Sinus tachycardia; multiple contributers (including anxiety; respiratory failure; cardiac arrest/IA;? PE; CHF; ) 6. Leukocytosis, abnormal LFT, inflammatory markers and D dimer due to COVID 7. H/o DVT (on systemic anticoagulation). PLAN: Cont respiratory support as per ICU team Antibiotics On multiple IV pressors On milrinone for decompensated CHF (earlier, normal LVEF) systemic anticoagulation with IV heparin: ASA F/u BUN/Cr; electrolytes; daily wt; Is and Os. cc time spent 35 min
[2020-01-20 07:34] LABS: ARTERIAL BLD GAS O2 SATURATION 82.3 % (95-98); ARTERIAL BLOOD GAS PCO2 88.9 mmHg (35-45); ARTERIAL BLOOD GAS PO2 60.9 mmHg (80-100)
[2020-01-20 08:27] LABS: ALBUMIN 2.2 g/dl (3.4-5.0); BILIRUBIN,TOTAL 0.3 mg/dL (0.2-1); BLOOD UREA NITROGEN 22.6 mg/dL (7-18); CREATININE 3.3 mg/dL (0.55-1.3); MAGNESIUM 1.6 mg/dL (1.8-2.4); PHOSPHOROUS 6.6 mg/dL (2.5-4.9); POTASSIUM 3.3 mmol/L (3.5-5.1); TOT PROT 4.1 g/dl (6.4-8.2)
[2020-01-20 08:35] LABS: CALCIUM 6.3 mg/dL (8.5-10.1)
--- NOTE | 2020-01-20 09:04 | PN ---
Progress Note, Physician Chief Complaint: Pt remains intubated, sedated; unresponsive. s/p respiratory failure; cardiac arrest. History of Present Illness: 44 year old woman with PMH Hodgkins' lymphoma X3 s/p radiation and stem cell transplant in 2011, not on active treatment, in remission x 8 yrs, appendectomy, cholecystectomy, anxiety, obesity, presenting with SOB and myalgias. States that she has felt ill for the past 10 days with myalgias and malaise, but over the past 5 days, she has had progressively worsening SOB and SONG, associated with cough, loss of appetite, and fevers/chills. 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 Sister is a known COVID positive. Pt COVID-19 detected 12/19/2019. Pt's respiratory status deteriorated; she was transferred to ICU 01/17/20. - Current Medication List Current Medications: Active Medications Albuterol Sulfate (Ventolin Hfa Inhaler -) 2 puff IH Q4H PRN PRN Reason: SHORT OF BREATH/WHEEZING Ascorbic Acid (Vitamin C -) 500 mg PO DAILY [facility] Last Admin: 01/19/20 09:18 Dose: Not Given Documented by: Calcium Gluconate (Calcium Gluconate 10% -) 1,000 mg IVPB ONCE ONE Stop: 01/20/20 09:31 Cholecalciferol (Vitamin D3 -) 1,000 unit PO DAILY [facility] Last Admin: 01/19/20 09:18 Dose: Not Given Documented by: Fludrocortisone Acetate (Florinef -) 0.05 mg GT DAILY [facility] Last Admin: 01/19/20 09:18 Dose: Not Given Documented by: Heparin Sodium (Porcine) (Heparin -) 1,000 unit IVPUSH PRN PRN PRN Reason: Heparin Heparin Sodium (Porcine) (Heparin -) 5,000 unit IVPUSH PRN PRN PRN Reason: Heparin Hydrocortisone Sodium Succinate (Solu-Cortef -) 50 mg IVPB Q6H-IV [facility] Last Admin: 01/20/20 02:27 Dose: 50 mg Documented by: Midazolam HCl 100 mg/ Sodium (Chloride) 100 mls @ 1 mls/hr IVPB TITR [facility]; Protocol Last Admin: 01/20/20 02:26 Dose: Not Given Documented by: Vasopressin 40 units/ Sodium (Chloride) 100 mls @ 5 mls/hr IVPB ASDIR [facility]; Protocol Last Admin: 01/20/20 05:46 Dose: Not Given Documented by: Meropenem 1 gm/ Dextrose 100 mls @ 200 mls/hr IVPB Q8H-IV [facility] Last Admin: 01/20/20 01:53 Dose: 200 mls/hr Documented by: Phenylephrine HCl (Paddy-Synephrine) 50,000 mcg in 500 mls @ 60 mls/hr CVP TITR [facility]; Protocol Last Titration: 01/20/20 07:51 Dose: 150 mcg/min, 90 mls/hr Documented by: Vancomycin HCl 1,250 mg/ (Dextrose) 250 mls @ 250 mls/2 hr IVPB DAILY@1200 [facility]; Protocol Last Admin: 01/19/20 11:44 Dose: 250 mls/2 hr Documented by: Vecuronium [place] (Vecuronium [place]) 100 mg in 100 mls @ 5.394 mls/hr IVPB TITR [facility]; Protocol Last Admin: 01/20/20 02:32 Dose: 1 mcg/kg/min, 5.394 mls/hr Documented by: Morphine Sulfate (Morphine 100mg/100ml-0.9% Nacl) 100 mg in 100 mls @ 4 mls/hr IVPB TITR [facility]; Protocol Last Infusion: 01/19/20 20:00 Dose: 4 mg/hr, 4 mls/hr Documented by: Milrinone Lactate/Dextrose (Milrinone 20mg/100ml Ivpb -) 20,000 mcg in 100 mls @ 5.394 mls/hr IVPB TITR [facility]; Protocol Last Admin: 01/20/20 02:30 Dose: 0.4 mcg/kg/min, 10.788 mls/hr Documented by: Norepinephrine Bitartrate 16, (000 mcg/ Sodium Chloride) 500 mls @ 9.375 mls/hr IV TITR [facility]; Protocol Last Titration: 01/20/20 07:51 Dose: 40 mcg/min, 75 mls/hr Documented by: Heparin Sodium (Porcine) 25, (000 unit/ Sodium Chloride) 500 mls @ 20 mls/hr IV TITR [facility]; Protocol Last Titration: 01/20/20 07:48 Dose: 0 unit/hr, 0 mls/hr Documented by: Potassium Chloride (Potassium Chloride 10 Meq Premix Ivpb -) 10 meq in 100 mls @ 100 mls/hr IVPB Q60M [facility] Stop: 01/20/20 12:44 Lactobacillus Acidophilus (Bacid -) 1 tab PO DAILY [facility] Last Admin: 01/19/20 09:18 Dose: Not Given Documented by: Magnesium Sulfate (Magnesium Sulfate) 2 gm IVPB ONCE ONE Stop: 01/20/20 09:46 Nystatin (Nystop Powder -) 1 applic TP DAILY [facility] Last Admin: 01/19/20 09:18 Dose: Not Given Documented by: Pantoprazole Sodium (Protonix Iv) 40 mg IVPUSH DAILY [facility] Last Admin: 01/19/20 08:59 Dose: 40 mg Documented by: Polyethylene Glycol (Miralax (For Daily Use) -) 17 gm PO Q24H PRN PRN Reason: CONSTIPATION Last Admin: 01/11/20 11:50 Dose: 17 gm Documented by: Sodium Bicarbonate (Sodium Bicarbonate 8.4% -) 50 meq IVPUSH Q4H-IV [facility] Last Admin: 01/20/20 05:46 Dose: 50 meq Documented by: Zinc Sulfate (Orazinc -) 220 mg PO DAILY [facility] Last Admin: 01/19/20 09:18 Dose: Not Given Documented by: - Objective Vital Signs: Vital Signs Temperature 98 F 01/20/20 05:38 Pulse Rate 141 H 01/20/20 08:08 Respiratory Rate 40 H 01/20/20 08:08 Blood Pressure 98/41 L 01/20/20 07:51 O2 Sat by Pulse Oximetry (%) 90 L 01/20/20 08:08 Constitutional: Yes: Obese Eyes: Yes: Other HENT: Yes: Other Neck: Yes: Decreased ROM Cardiovascular: Yes: Tachycardia, S1, S2 Respiratory: Yes: Diminished, Mechanically Ventilated, Tachypnea Genitourinary: Yes: Kelley Present. No: Anuria Extremities: Yes: Cool Edema: No Peripheral Pulses WNL: No Peripheral Pulses: Left Doralis Pedis: 1+, Right Dorsalis Pedis: 1+ Integumentary: Yes: Tattoos Neurological: Yes: Unresponsive Psychiatric: Yes: Other Labs: CBC, BMP 01/19/20 05:30 01/20/20 05:30 INR, PTT INR 1.21 (0.83-1.09) H 01/18/20 05:30 Abnormal Lab Results 05/01/19/20 01/19/20 22:30 05:30 10:28 PTT (Actin FS) ABG pH 7.24 L ABG pCO2 at Pt Temp 62.1 H ABG pO2 at Pt Temp 50.0 L ABG HCO3 ABG O2 Sat (Measured) 77.9 L ABG Base Excess -2.3 L Potassium Carbon Dioxide Anion Gap BUN Creatinine Random Glucose Calcium Phosphorus Magnesium Ferritin AST ALT Alkaline Phosphatase LD Total Creatine Kinase 344 H CK-MB (CK-2) 16.2 H Troponin I 1.70 H* 1.26 H* C-Reactive Protein Total Protein Albumin 01/19/20 01/20/20 01/20/20 15:00 05:30 05:30 PTT (Actin FS) 68.5 H 108.6 H ABG pH ABG pCO2 at Pt Temp ABG pO2 at Pt Temp ABG HCO3 ABG O2 Sat (Measured) ABG Base Excess Potassium 3.3 L Carbon Dioxide 36 H Anion Gap 7 L BUN 22.6 H Creatinine 3.3 H Random Glucose 130 H Calcium 6.3 L* Phosphorus 6.6 H Magnesium 1.6 L Ferritin 8609.8 H AST 326 H ALT 1129 H Alkaline Phosphatase 140 H LD Total 756 H Creatine Kinase CK-MB (CK-2) Troponin I C-Reactive Protein 1.0 H Total Protein 4.1 L Albumin 2.2 L 01/20/20 05:45 PTT (Actin FS) ABG pH 7.10 L* ABG pCO2 at Pt Temp 88.9 H* ABG pO2 at Pt Temp 60.9 L ABG HCO3 30.2 H ABG O2 Sat (Measured) 82.3 L ABG Base Excess Potassium Carbon Dioxide Anion Gap BUN Creatinine Random Glucose Calcium Phosphorus Magnesium Ferritin AST ALT Alkaline Phosphatase LD Total Creatine Kinase CK-MB (CK-2) Troponin I C-Reactive Protein Total Protein Albumin - ....Imaging Chest X-ray: Image Reviewed EKG: Image Reviewed Other: Image Reviewed Problem List - Problems (1) Obesity Code(s): E66.9 - OBESITY, UNSPECIFIED (2) HTN (hypertension) Code(s): I10 - ESSENTIAL (PRIMARY) HYPERTENSION Qualifiers: Hypertension type: essential hypertension Qualified Code(s): I10 - Essential (primary) hypertension (3) NHL (non-Hodgkin's lymphoma) Code(s): C85.90 - NON-HODGKIN LYMPHOMA, UNSPECIFIED, UNSPECIFIED SITE (4) Anxiety Code(s): F41.9 - ANXIETY DISORDER, UNSPECIFIED (5) Acute respiratory failure with hypoxia Code(s): J96.01 - ACUTE RESPIRATORY FAILURE WITH HYPOXIA (6) COVID-19 Code(s): U07.1 - COVID POSITIVE (7) Sinus tachycardia Code(s): R00.0 - TACHYCARDIA, UNSPECIFIED Assessment/Plan 1. Acute hypoxic respiratory failure deterioration last 24 hrs requiring intubation hypotensive on pressors. 2. Cardiac arrest; TNI elevation; r/o STEMI 3. (+) COVID 19 - pneumonitis; 2nd test: not detected. 4. Non Hodgkins Lymphoma in remission 5. Sinus tachycardia; multiple contributers (including anxiety; respiratory failure; cardiac arrest/ND;? PE; CHF; ) 6. Leukocytosis, abnormal LFT, inflammatory markers and D dimer due to COVID 7. H/o DVT (on systemic anticoagulation). PLAN: Cont respiratory support as per ICU team Antibiotics On multiple IV pressors On milrinone for decompensated CHF (earlier, normal LVEF) systemic anticoagulation with IV heparin: ASA F/u BUN/Cr; electrolytes; daily wt; Is and Os. Replete K; Keep K 4.0-4.5 Mg 2.0-2.4 PO4 2.5-4.9. ccu time spent 35 min
[2020-01-20] MEDS ORDERED: CALCIUM GLUCONATE 10% - 1,000 MG/10 ML VIAL IVPB ONE (09:30)
[2020-01-20] MEDS: KCL 10 MEQ IVPB 10 MEQ/100 ML INFUS.BAG IVPB SCH ×3 (09:45→11:45)
[2020-01-20] MEDS ORDERED: MAGNESIUM SULF 50% (8.12 MEQ/2 ML-1 GM VIAL) IVPB ONE (09:45)
[2020-01-20] MEDS ORDERED: MIDAZOLAM 100MG/100ML DRIP - DO NOT USE FOR BILLING ONE (09:46)
[2020-01-20] MEDS ORDERED: MEROPENEM 1 GM VIAL (RESTRICTED TO ID) IVPB ONE (09:49)
[2020-01-20] MEDS ORDERED: DEXTROSE 5%-WATER 100 ML IVPB ONE (09:49)
[2020-01-20] MEDS: PANTOPRAZOLE SODIUM 40 MG VIAL IVPUSH SCH (10:00)
--- NOTE | 2020-01-20 10:17 | PN ---
Physical Exam: SUBJECTIVE: Patient seen and examined at bedside. She is s/p cardiac arrest. Overnight she demonstrated episodes of hypotension with MAPs as low as the 40s and levophed was raised to 40. OBJECTIVE: Vital Signs Period Temp Pulse Resp BP Sys/Rivera Pulse Ox Last 24 Hr 97 F-98.1 F 129-142 40-40 98-123/41-72 88-90 GENERAL: Intubated and sedated HEAD: Normal with no signs of trauma. LUNGS: Equal rise and fall of chest wall. Tachypnea. HEART: Tachycardia Laboratory Results - last 24 hr 01/18/20 01/18/20 01/19/20 22:30 22:30 05:30 PTT (Actin FS) Anticoagulation Therapy Puncture Site ABG pH ABG pCO2 at Pt Temp ABG pO2 at Pt Temp ABG HCO3 ABG O2 Sat (Measured) ABG O2 Content ABG Base Excess Lake Test Patient On Oxygen O2 Delivery Device Oxygen Flow Rate Vent Mode Vent Rate Mechanical Rate PEEP Pressure Support Vent Sodium Potassium Chloride Carbon Dioxide Anion Gap BUN Creatinine Est GFR (CKD-EPI)AfAm Est GFR (CKD-EPI)NonAf Random Glucose Calcium Phosphorus Magnesium Ferritin Total Bilirubin AST ALT Alkaline Phosphatase LD Total Creatine Kinase 344 H Creatine Kinase Index 4.7 CK-MB (CK-2) 16.2 H Troponin I 1.70 H* 1.26 H* C-Reactive Protein Total Protein Albumin COVID-19 (HORACE) Not detected 01/19/20 01/19/20 01/20/20 10:28 15:00 05:30 PTT (Actin FS) 68.5 H Anticoagulation Therapy No Result Required. Puncture Site Arterial line ABG pH 7.24 L ABG pCO2 at Pt Temp 62.1 H ABG pO2 at Pt Temp 50.0 L ABG HCO3 26 ABG O2 Sat (Measured) 77.9 L ABG O2 Content No Result Required. ABG Base Excess -2.3 L Lake Test Not applicable Patient On Oxygen Yes O2 Delivery Device Vent Oxygen Flow Rate 100% Vent Mode A/c Vent Rate 40 Mechanical Rate Yes PEEP 8.0 Pressure Support Vent 350 Sodium 143 Potassium 3.3 L Chloride 100 Carbon Dioxide 36 H Anion Gap 7 L BUN 22.6 H Creatinine 3.3 H Est GFR (CKD-EPI)AfAm 19.00 Est GFR (CKD-EPI)NonAf 16.39 Random Glucose 130 H Calcium 6.3 L* Phosphorus 6.6 H Magnesium 1.6 L Ferritin 8609.8 H Total Bilirubin 0.3 AST 326 H ALT 1129 H Alkaline Phosphatase 140 H LD Total 756 H Creatine Kinase Creatine Kinase Index CK-MB (CK-2) Troponin I C-Reactive Protein 1.0 H Total Protein 4.1 L Albumin 2.2 L COVID-19 (HORACE) 01/20/20 01/20/20 05:30 05:45 PTT (Actin FS) 108.6 H Anticoagulation Therapy No Result Required. Puncture Site Arterial line ABG pH 7.10 L* ABG pCO2 at Pt Temp 88.9 H* ABG pO2 at Pt Temp 60.9 L ABG HCO3 30.2 H ABG O2 Sat (Measured) 82.3 L ABG O2 Content No Result Required. ABG Base Excess -1.0 Lake Test Not applicable Patient On Oxygen Yes O2 Delivery Device Vent Oxygen Flow Rate 100% Vent Mode A/c Vent Rate 40 Mechanical Rate Yes PEEP 8.0 Pressure Support Vent 350 Sodium Potassium Chloride Carbon Dioxide Anion Gap BUN Creatinine Est GFR (CKD-EPI)AfAm Est GFR (CKD-EPI)NonAf Random Glucose Calcium Phosphorus Magnesium Ferritin Total Bilirubin AST ALT Alkaline Phosphatase LD Total Creatine Kinase Creatine Kinase Index CK-MB (CK-2) Troponin I C-Reactive Protein Total Protein Albumin COVID-19 (HORACE) Active Medications Generic Name Dose Route Start Last Admin Trade Name Freq PRN Reason Stop Dose Admin Albuterol Sulfate 2 puff 12/28/19 15:59 Ventolin Hfa Inhaler - IH Q4H PRN SHORT OF BREATH/WHEEZING Ascorbic Acid 500 mg 12/30/19 10:00 01/19/20 09:18 Vitamin C - PO Not Given DAILY [facility] Cholecalciferol 1,000 unit 12/30/19 10:00 01/19/20 09:18 Vitamin D3 - PO Not Given DAILY [facility] Fludrocortisone Acetate 0.05 mg 01/18/20 10:00 01/19/20 09:18 Florinef - GT Not Given DAILY [facility] Heparin Sodium (Porcine) 1,000 unit 01/19/20 10:12 Heparin - IVPUSH PRN PRN Heparin Heparin Sodium (Porcine) 5,000 unit 01/19/20 10:12 Heparin - IVPUSH PRN PRN Heparin Hydrocortisone Sodium Succinate 50 mg 01/18/20 09:00 01/20/20 02:27 Solu-Cortef - IVPB 50 mg Q6H-IV [facility] Administration Midazolam HCl 100 mg/ Sodium 100 mls @ 1 mls/hr 01/18/20 00:15 01/20/20 02:26 Chloride IVPB Not Given TITR [facility] Protocol 1 MG/HR Vasopressin 40 units/ Sodium 100 mls @ 5 mls/hr 01/18/20 03:15 01/20/20 05:46 Chloride IVPB Not Given ASDIR [facility] Protocol 2 UNITS/HR Meropenem 1 gm/ Dextrose 100 mls @ 200 mls/hr 01/18/20 10:00 01/20/20 01:53 IVPB 200 mls/hr Q8H-IV [facility] Administration Phenylephrine HCl 50,000 mcg in 500 mls @ 60 mls/hr 01/18/20 08:45 01/20/20 07:51 Paddy-Synephrine CVP 150 mcg/min TITR [facility] 90 mls/hr Titration Protocol 100 MCG/MIN Vancomycin HCl 1,250 mg/ 250 mls @ 250 mls/2 hr 01/18/20 12:00 01/19/20 11:44 Dextrose IVPB 250 mls/2 hr DAILY@1200 [facility] Administration Protocol Vecuronium [place] 100 mg in 100 mls @ 5.394 mls/hr 01/18/20 12:00 01/20/20 02:32 Vecuronium [place] IVPB 1 mcg/kg/min TITR [facility] 5.394 mls/hr Administration Protocol 1 MCG/KG/MIN Morphine Sulfate 100 mg in 100 mls @ 4 mls/hr 01/18/20 14:00 01/19/20 20:00 Morphine 100mg/100ml-0.9% Nacl IVPB 4 mg/hr TITR [facility] 4 mls/hr Infusion Protocol 4 MG/HR Milrinone Lactate/Dextrose 20,000 mcg in 100 mls @ 5.394 mls/hr 01/18/20 15:30 01/20/20 02:30 Milrinone 20mg/100ml Ivpb - IVPB 0.4 mcg/kg/min TITR [facility] 10.788 mls/hr Administration Protocol 0.2 MCG/KG/MIN Norepinephrine Bitartrate 16, 500 mls @ 9.375 mls/hr 01/19/20 06:00 01/20/20 07:51 000 mcg/ Sodium Chloride IV 40 mcg/min TITR [facility] 75 mls/hr Titration Protocol 5 MCG/MIN Heparin Sodium (Porcine) 25, 500 mls @ 20 mls/hr 01/19/20 12:00 01/20/20 07:48 000 unit/ Sodium Chloride IV 0 unit/hr TITR [facility] 0 mls/hr Titration Protocol 1,000 UNIT/HR Potassium Chloride 10 meq in 100 mls @ 100 mls/hr 01/20/20 09:45 Potassium Chloride 10 Meq Premix Ivpb - IVPB 01/20/20 12:44 Q60M [facility] Lactobacillus Acidophilus 1 tab 12/29/19 10:00 01/19/20 09:18 Bacid - PO Not Given DAILY [facility] Nystatin 1 applic 01/13/20 10:00 01/19/20 09:18 Nystop Powder - TP Not Given DAILY [facility] Pantoprazole Sodium 40 mg 01/18/20 11:15 01/19/20 08:59 Protonix Iv IVPUSH 40 mg DAILY [facility] Administration Polyethylene Glycol 17 gm 01/09/20 17:43 01/11/20 11:50 Miralax (For Daily Use) - PO 17 gm Q24H PRN Administration CONSTIPATION Sodium Bicarbonate 50 meq 01/18/20 14:00 01/20/20 05:46 Sodium Bicarbonate 8.4% - IVPUSH 50 meq Q4H-IV [facility] Administration Zinc Sulfate 220 mg 12/29/19 10:00 01/19/20 09:18 Orazinc - PO Not Given DAILY [facility] ASSESSMENT/PLAN: 44 y/o female PMH Hodgkins' lymphoma s/p radiation and stem cell transplant (2011), appendectomy, cholecystectomy, anxiety, who presents with acute hypoxic respiratory failure 2/2 to CoVid-19 infection now in ICU for persistent desaturation and hypotension. Unclear what precipitated acute decompensation beyond progression of disease/continued inflammatory response. Presently on Milrenone 0.4, vasopressin 4, levo 4, phenylephrine 100 Vent settings 40/350/100%/8 # Neuro. Sedated: versed, morphine, vecuronium h/o anxiety # Pulm ARDS CoVid-19 + (second serology status of NEG likely poor sample) Ferritin and LDH down. CRP up. Trend ferritin and LDH up. CRP NL. # ID Meropenem 1 g q8h and Vancomycin 1250 qd - day 3 for both Blood cultures pending # CVS s/p 3 arrests Sinus tachycardia; multiple contributers (including anxiety; respiratory failure; cardiac arrest/[place];? PE; CHF) Heparin protocol Tachycardia # Renal Oliguria. UO 300 Acute Kidney Injury Hold IVF given numbers of drips and concurrent piggy-backs # ENDO Hypocalcemia, repleting # GI Transaminitis likely 2/2 ischemia # Tubes, Lines, Drain ETT placed 17 Jan 2020 RIGHT axillary arterial line RIGHT IJ 17 Jan 2020 Kelley # FEN Hold IVF Cont. to monitor. Maintain K 4.0-4.5, Mg 2.0-2.4, PO4 2.5-4.9. NPO # DVT ppx Hep PE protocol at noon today. # Disposition Full code Cont. ICU monitoring Blaine Guerrero MD Visit type - Emergency Visit Emergency Visit: No - New Patient This patient is new to me today: No - Critical Care Critical Care patient: Yes Total Critical Care Time (in minutes): 30 Critical Care Statement: The care of this patient involved high complexity decision making to prevent further life threatening deterioration of the patient's condition and/or to evaluate & treat vital organ system(s) failure or risk of failure. ATTENDING PHYSICIAN STATEMENT I saw and evaluated the patient. I reviewed the resident's note and discussed the case with the resident. I agree with the resident's findings and plan as documented. SUBJECTIVE: OBJECTIVE: ASSESSMENT AND PLAN:
[2020-01-20] MEDS: NYSTATIN POWDER 100,000 UNITS/GM - 15 GM TOPICAL POWDER TP SCH (11:00)
[2020-01-20] MEDS ORDERED: VECURONIUM BROMIDE 10 MG/10 ML VIAL ONE (12:23)
[2020-01-20] MEDS: VANCOMYCIN HCL 1,250 MG in DEXTROSE 5%-WATER - 250 ML IVPB SCH (12:30)
[2020-01-20 13:22] LABS: ARTERIAL BLD GAS O2 SATURATION 85.6 % (95-98); ARTERIAL BLOOD GAS BASE EXCESS 1.4 mmol/L (-2-2); ARTERIAL BLOOD GAS PO2 74.7 mmHg (80-100)
[2020-01-20 13:26] LABS: ARTERIAL BLOOD GAS PCO2 > 100.0 mmHg (35-45); ARTERIAL BLOOD GAS pH 7.04 (7.35-7.45)
[2020-01-20] MEDS ORDERED: DOPAMINE 400 MG/D5W - 400,000 MCG/250 ML INFUS.BAG IVPB SCH (14:15)
--- NOTE | 2020-01-20 14:39 | PN ---
Teaching Attending Note Name of Resident: Blaine Guerrero ATTENDING PHYSICIAN STATEMENT I saw and evaluated the patient. I reviewed the resident's note and discussed the case with the resident. I agree with the resident's findings and plan as documented. SUBJECTIVE: Pt seen and examined in the ICU. Remains intubated, sedated, paralyzed on levophed, vasopressin, phenylephrine, milrinone gtts. Oliguric yesterday. No fevers recorded. Oxygenation worsening with worsening lung compliance with Pplat 50s. CXR without signficant changes, pt now proned. OBJECTIVE: Vital Signs Period Temp Pulse Resp BP Sys/Rivera Pulse Ox Last 24 Hr 97 F-98.1 F 130-142 40-40 98-123/41-64 87-90 Intake & Output 01/17/20 01/18/20 01/19/20 01/20/20 23:59 23:59 23:59 23:59 Intake Total 1770 8902.2 5657.6 2016.4 Output Total 1300 50 300 350 Balance 470 8852.2 5357.6 1666.4 Weight 89.9 kg 92.164 kg 92.533 kg Gen: intubated, sedated, paralyzed Heart: tachycardic, regular Lung: scattered rhonchi Abd: soft, nontender Ext: no edema CBC, BMP 01/19/20 05:30 01/20/20 05:30 ABG Results ABG pH 7.04 (7.35-7.45) L* 01/20/20 12:55 ABG pCO2 at Pt Temp > 100.0 mmHg (35-45) H* 01/20/20 12:55 ABG pO2 at Pt Temp 74.7 mmHg (80-100) L 01/20/20 12:55 ABG HCO3 34.8 mmol/L (22-27) H 01/20/20 12:55 ABG O2 Sat (Measured) 85.6 % (95-98) L 01/20/20 12:55 ABG O2 Content No Result Required. 01/20/20 12:55 ABG Base Excess 1.4 mmol/L (-2-2) 01/20/20 12:55 Laboratory Tests 01/19/20 01/20/20 05:30 05:30 Ferritin 8609.8 H AST 326 H ALT 1129 H LD Total 756 H Troponin I 1.26 H* C-Reactive Protein 1.0 H Active Medications Albuterol Sulfate (Ventolin Hfa Inhaler -) 2 puff IH Q4H PRN PRN Reason: SHORT OF BREATH/WHEEZING Ascorbic Acid (Vitamin C -) 500 mg PO DAILY [facility] Last Admin: 01/19/20 09:18 Dose: Not Given Documented by: Cholecalciferol (Vitamin D3 -) 1,000 unit PO DAILY [facility] Last Admin: 01/19/20 09:18 Dose: Not Given Documented by: Fludrocortisone Acetate (Florinef -) 0.05 mg GT DAILY [facility] Last Admin: 01/19/20 09:18 Dose: Not Given Documented by: Heparin Sodium (Porcine) (Heparin -) 1,000 unit IVPUSH PRN PRN PRN Reason: Heparin Heparin Sodium (Porcine) (Heparin -) 5,000 unit IVPUSH PRN PRN PRN Reason: Heparin Hydrocortisone Sodium Succinate (Solu-Cortef -) 50 mg IVPB Q6H-IV [facility] Last Admin: 01/20/20 02:27 Dose: 50 mg Documented by: Midazolam HCl 100 mg/ Sodium (Chloride) 100 mls @ 1 mls/hr IVPB TITR [facility]; Protocol Last Admin: 01/20/20 02:26 Dose: Not Given Documented by: Vasopressin 40 units/ Sodium (Chloride) 100 mls @ 5 mls/hr IVPB ASDIR [facility]; Protocol Last Admin: 01/20/20 05:46 Dose: Not Given Documented by: Meropenem 1 gm/ Dextrose 100 mls @ 200 mls/hr IVPB Q8H-IV [facility] Last Admin: 01/20/20 01:53 Dose: 200 mls/hr Documented by: Phenylephrine HCl (Paddy-Synephrine) 50,000 mcg in 500 mls @ 60 mls/hr CVP TITR [facility]; Protocol Last Titration: 01/20/20 07:51 Dose: 150 mcg/min, 90 mls/hr Documented by: Vancomycin HCl 1,250 mg/ (Dextrose) 250 mls @ 250 mls/2 hr IVPB DAILY@1200 [facility]; Protocol Last Admin: 01/19/20 11:44 Dose: 250 mls/2 hr Documented by: Vecuronium [place] (Vecuronium [place]) 100 mg in 100 mls @ 5.394 mls/hr IVPB TITR [facility]; Protocol Last Admin: 01/20/20 02:32 Dose: 1 mcg/kg/min, 5.394 mls/hr Documented by: Morphine Sulfate (Morphine 100mg/100ml-0.9% Nacl) 100 mg in 100 mls @ 4 mls/hr IVPB TITR [facility]; Protocol Last Infusion: 01/19/20 20:00 Dose: 4 mg/hr, 4 mls/hr Documented by: Milrinone Lactate/Dextrose (Milrinone 20mg/100ml Ivpb -) 20,000 mcg in 100 mls @ 5.394 mls/hr IVPB TITR [facility]; Protocol Last Admin: 01/20/20 02:30 Dose: 0.4 mcg/kg/min, 10.788 mls/hr Documented by: Norepinephrine Bitartrate 16, (000 mcg/ Sodium Chloride) 500 mls @ 9.375 mls/hr IV TITR [facility]; Protocol Last Titration: 01/20/20 07:51 Dose: 40 mcg/min, 75 mls/hr Documented by: Heparin Sodium (Porcine) 25, (000 unit/ Sodium Chloride) 500 mls @ 20 mls/hr IV TITR [facility]; Protocol Last Titration: 01/20/20 07:48 Dose: 0 unit/hr, 0 mls/hr Documented by: Dopamine HCl/Dextrose (Dopamine 400 Mg/D5w -) 400,000 mcg in 250 mls @ 17.35 mls/hr IVPB TITR [facility]; Protocol Lactobacillus Acidophilus (Bacid -) 1 tab PO DAILY [facility] Last Admin: 01/19/20 09:18 Dose: Not Given Documented by: Nystatin (Nystop Powder -) 1 applic TP DAILY [facility] Last Admin: 01/19/20 09:18 Dose: Not Given Documented by: Pantoprazole Sodium (Protonix Iv) 40 mg IVPUSH DAILY [facility] Last Admin: 01/19/20 08:59 Dose: 40 mg Documented by: Polyethylene Glycol (Miralax (For Daily Use) -) 17 gm PO Q24H PRN PRN Reason: CONSTIPATION Last Admin: 01/11/20 11:50 Dose: 17 gm Documented by: Sodium Bicarbonate (Sodium Bicarbonate 8.4% -) 50 meq IVPUSH Q4H-IV [facility] Last Admin: 01/20/20 05:46 Dose: 50 meq Documented by: Zinc Sulfate (Orazinc -) 220 mg PO DAILY [facility] Last Admin: 01/19/20 09:18 Dose: Not Given Documented by: ASSESSMENT AND PLAN: Acute Hypoxic and Hypercapneic Respiratory Failure COVID19 Pneumonia ARDS s/p Cardiac Arrest r/o NSTEMI r/o PE Septic vs Cardiogenic Shock Lactic Acidosis Acute Kidney Injury Elevated LFTs likely Ischemic Injury h/o Hodgkin's Lymphoma - s/p empiric tPA - broad spectrum antibiotics - titrate pressors, inotropes to maintain MAP >65 - stress dose steroids - IVF to keep CVP 8-12 - monitor urine output, creatinine - trend lactate, cardiac enzymes, LFTs - monitor ABG - low tidal volume ventilation, adjusted settings - keep Pplat <30 - allow permissive hypercapnea - bicarb - sedate/NMB for vent synchrony - continue ICU monitoring - prognosis poor, continue discussions regarding advanced directives critical care time spent in reviewing chart, evaluating patient and formulating plan 35 min
[2020-01-20] MEDS ORDERED: PT OWN MED DRAWER 7, Y5N ONE (15:00)
[2020-01-20 15:11] VITALS: TEMP 98
--- NOTE | 2020-01-20 16:28 | PN ---
Progress Note (short form) - Note Progress Note: Code 99 called due to PEA arrest: --Patient was turned supine from prone positioning promptly and safely --ACLS protocol was initiated --ROSC obtained in 2 minutes after 1 round of CPR, 1 epi, and 1 bicarb push. --Post-ROSC protocol was initiated --See code sheet for full details --Family discussions continue regarding grim prognosis Vijay Sotelo, DO - IM PGY-3
--- NOTE | 2020-01-20 16:35 | PN ---
Progress Note, Physician History of Present Illness: Pt seen and examined at bedside. SHe remains in the ICU. She remains intubated. - Current Medication List Current Medications: Active Medications Albuterol Sulfate (Ventolin Hfa Inhaler -) 2 puff IH Q4H PRN PRN Reason: SHORT OF BREATH/WHEEZING Ascorbic Acid (Vitamin C -) 500 mg PO DAILY DARIEL Last Admin: 01/19/20 09:18 Dose: Not Given Documented by: Cholecalciferol (Vitamin D3 -) 1,000 unit PO DAILY DARIEL Last Admin: 01/19/20 09:18 Dose: Not Given Documented by: Fludrocortisone Acetate (Florinef -) 0.05 mg GT DAILY DARIEL Last Admin: 01/19/20 09:18 Dose: Not Given Documented by: Heparin Sodium (Porcine) (Heparin -) 1,000 unit IVPUSH PRN PRN PRN Reason: Heparin Heparin Sodium (Porcine) (Heparin -) 5,000 unit IVPUSH PRN PRN PRN Reason: Heparin Hydrocortisone Sodium Succinate (Solu-Cortef -) 50 mg IVPB Q6H-IV DARIEL Last Admin: 01/20/20 15:28 Dose: 50 mg Documented by: Midazolam HCl 100 mg/ Sodium (Chloride) 100 mls @ 1 mls/hr IVPB TITR DARIEL; Protocol Last Titration: 01/20/20 09:00 Dose: 4 mg/hr, 4 mls/hr Documented by: Vasopressin 40 units/ Sodium (Chloride) 100 mls @ 5 mls/hr IVPB ASDIR DARIEL; Protocol Last Titration: 01/20/20 14:51 Dose: 4.8 units/hr, 12 mls/hr Documented by: Meropenem 1 gm/ Dextrose 100 mls @ 200 mls/hr IVPB Q8H-IV DARIEL Last Admin: 01/20/20 10:00 Dose: 200 mls/hr Documented by: Phenylephrine HCl (Paddy-Synephrine) 50,000 mcg in 500 mls @ 60 mls/hr CVP TITR DARIEL; Protocol Last Titration: 01/20/20 09:00 Dose: 300 mcg/min, 180 mls/hr Documented by: Vancomycin HCl 1,250 mg/ (Dextrose) 250 mls @ 250 mls/2 hr IVPB DAILY@1200 DARIEL; Protocol Last Admin: 01/19/20 11:44 Dose: 250 mls/2 hr Documented by: Vecuronium Rochelle (Vecuronium Rochelle) 100 mg in 100 mls @ 5.394 mls/hr IVPB TITR DARIEL; Protocol Last Admin: 01/20/20 02:32 Dose: 1 mcg/kg/min, 5.394 mls/hr Documented by: Morphine Sulfate (Morphine 100mg/100ml-0.9% Nacl) 100 mg in 100 mls @ 4 mls/hr IVPB TITR DARIEL; Protocol Last Infusion: 01/19/20 20:00 Dose: 4 mg/hr, 4 mls/hr Documented by: Milrinone Lactate/Dextrose (Milrinone 20mg/100ml Ivpb -) 20,000 mcg in 100 mls @ 5.394 mls/hr IVPB TITR DARIEL; Protocol Last Admin: 01/20/20 02:30 Dose: 0.4 mcg/kg/min, 10.788 mls/hr Documented by: Norepinephrine Bitartrate 16, (000 mcg/ Sodium Chloride) 500 mls @ 9.375 mls/hr IV TITR DARIEL; Protocol Last Titration: 01/20/20 07:51 Dose: 40 mcg/min, 75 mls/hr Documented by: Heparin Sodium (Porcine) 25, (000 unit/ Sodium Chloride) 500 mls @ 20 mls/hr IV TITR DARIEL; Protocol Last Titration: 01/20/20 09:00 Dose: 850 unit/hr, 17 mls/hr Documented by: Dopamine HCl/Dextrose (Dopamine 400 Mg/D5w -) 400,000 mcg in 250 mls @ 17.35 mls/hr IVPB TITR DARIEL; Protocol Last Admin: 01/20/20 14:15 Dose: 20 mcg/kg/min, 69.4 mls/hr Documented by: Epinephrine 1,000 mcg/ (Dextrose) 250 mls @ 138.8 mls/hr IVPB ASDIR DARIEL; P rotocol Lactobacillus Acidophilus (Bacid -) 1 tab PO DAILY DARIEL Last Admin: 01/19/20 09:18 Dose: Not Given Documented by: Nystatin (Nystop Powder -) 1 applic TP DAILY DARIEL Last Admin: 01/20/20 11:00 Dose: 1 applic Documented by: Pantoprazole Sodium (Protonix Iv) 40 mg IVPUSH DAILY DARIEL Last Admin: 01/20/20 10:00 Dose: 40 mg Documented by: Polyethylene Glycol (Miralax (For Daily Use) -) 17 gm PO Q24H PRN PRN Reason: CONSTIPATION Last Admin: 01/11/20 11:50 Dose: 17 gm Documented by: Sodium Bicarbonate (Sodium Bicarbonate 8.4% -) 50 meq IVPUSH Q4H-IV DARIEL Last Admin: 01/20/20 10:00 Dose: 50 meq Documented by: Zinc Sulfate (Orazinc -) 220 mg PO DAILY DARIEL Last Admin: 01/19/20 09:18 Dose: Not Given Documented by: - Objective Vital Signs: Vital Signs Temperature 98.0 F 01/20/20 14:00 Pulse Rate 138 H 01/20/20 14:00 Respiratory Rate 38 H 01/20/20 16:29 Blood Pressure 66/31 L 01/20/20 14:00 O2 Sat by Pulse Oximetry (%) 87 L 01/20/20 12:14 Constitutional: Yes: Calm Eyes: Yes: Conjunctiva Clear HENT: Yes: Atraumatic Cardiovascular: Yes: S1, S2 Respiratory: Yes: Mechanically Ventilated Gastrointestinal: Yes: Normal Bowel Sounds, Soft, Abdomen, Obese Genitourinary: Yes: Kelley Present Musculoskeletal: Yes: WNL, Muscle Weakness Edema: Yes Edema: LLE: 1+, RLE: 1+ Integumentary: Yes: Tattoos Neurological: Yes: Lethargy Labs: CBC, BMP 01/19/20 05:30 01/20/20 05:30 INR, PTT INR 1.21 (0.83-1.09) H 01/18/20 05:30 Problem List - Problems (1) ANJUM (acute kidney injury) Code(s): N17.9 - ACUTE KIDNEY FAILURE, UNSPECIFIED (2) Acute hypoxemic respiratory failure Code(s): J96.01 - ACUTE RESPIRATORY FAILURE WITH HYPOXIA (3) Acute respiratory failure with hypoxia Code(s): J96.01 - ACUTE RESPIRATORY FAILURE WITH HYPOXIA (4) Anxiety Code(s): F41.9 - ANXIETY DISORDER, UNSPECIFIED (5) COVID-19 Code(s): U07.1 - COVID POSITIVE (6) HTN (hypertension) Code(s): I10 - ESSENTIAL (PRIMARY) HYPERTENSION Qualifiers: Hypertension type: essential hypertension Qualified Code(s): I10 - Essential (primary) hypertension Assessment/Plan Current Medications Generic Name Dose Route Start Last Admin Trade Name Freq PRN Reason Stop Dose Admin Albuterol Sulfate 2 puff 12/28/19 15:59 Ventolin Hfa Inhaler - IH Q4H PRN SHORT OF BREATH/WHEEZING Ascorbic Acid 500 mg 12/30/19 10:00 01/19/20 09:18 Vitamin C - PO Not Given DAILY DARIEL Cholecalciferol 1,000 unit 12/30/19 10:00 01/19/20 09:18 Vitamin D3 - PO Not Given DAILY DARIEL Fludrocortisone Acetate 0.05 mg 01/18/20 10:00 01/19/20 09:18 Florinef - GT Not Given DAILY DARIEL Heparin Sodium (Porcine) 1,000 unit 01/19/20 10:12 Heparin - IVPUSH PRN PRN Heparin Heparin Sodium (Porcine) 5,000 unit 01/19/20 10:12 Heparin - IVPUSH PRN PRN Heparin Hydrocortisone Sodium Succinate 50 mg 01/18/20 09:00 01/20/20 15:28 Solu-Cortef - IVPB 50 mg Q6H-IV DARIEL Administration Midazolam HCl 100 mg/ Sodium 100 mls @ 1 mls/hr 01/18/20 00:15 01/20/20 09:00 Chloride IVPB 4 mg/hr TITR DARIEL 4 mls/hr Titration Protocol 1 MG/HR Vasopressin 40 units/ Sodium 100 mls @ 5 mls/hr 01/18/20 03:15 01/20/20 14:51 Chloride IVPB 4.8 units/hr ASDIR DARIEL 12 mls/hr Titration Protocol 2 UNITS/HR Meropenem 1 gm/ Dextrose 100 mls @ 200 mls/hr 01/18/20 10:00 01/20/20 10:00 IVPB 200 mls/hr Q8H-IV DARIEL Administration Phenylephrine HCl 50,000 mcg in 500 mls @ 60 mls/hr 01/18/20 08:45 01/20/20 09:00 Paddy-Synephrine CVP 300 mcg/min TITR DARIEL 180 mls/hr Titration Protocol 100 MCG/MIN Vancomycin HCl 1,250 mg/ 250 mls @ 250 mls/2 hr 01/18/20 12:00 01/19/20 11:44 Dextrose IVPB 250 mls/2 hr DAILY@1200 DARIEL Administration Protocol Vecuronium Rochelle 100 mg in 100 mls @ 5.394 mls/hr 01/18/20 12:00 01/20/20 02:32 Vecuronium Rochelle IVPB 1 mcg/kg/min TITR DARIEL 5.394 mls/hr Administration Protocol 1 MCG/KG/MIN Morphine Sulfate 100 mg in 100 mls @ 4 mls/hr 01/18/20 14:00 01/19/20 20:00 Morphine 100mg/100ml-0.9% Nacl IVPB 4 mg/hr TITR DARIEL 4 mls/hr Infusion Protocol 4 MG/HR Milrinone Lactate/Dextrose 20,000 mcg in 100 mls @ 5.394 mls/hr 01/18/20 15:30 01/20/20 02:30 Milrinone 20mg/100ml Ivpb - IVPB 0.4 mcg/kg/min TITR DARIEL 10.788 mls/hr Administration Protocol 0.2 MCG/KG/MIN Norepinephrine Bitartrate 16, 500 mls @ 9.375 mls/hr 01/19/20 06:00 01/20/20 07:51 000 mcg/ Sodium Chloride IV 40 mcg/min TITR DARIEL 75 mls/hr Titration Protocol 5 MCG/MIN Heparin Sodium (Porcine) 25, 500 mls @ 20 mls/hr 01/19/20 12:00 01/20/20 0 9:00 000 unit/ Sodium Chloride IV 850 unit/hr TITR DARIEL 17 mls/hr Titration Protocol 1,000 UNIT/HR Dopamine HCl/Dextrose 400,000 mcg in 250 mls @ 17.35 mls/hr 01/20/20 14:15 01/20/20 14:15 Dopamine 400 Mg/D5w - IVPB 20 mcg/kg/min TITR DARIEL 69.4 mls/hr Administration Protocol 5 MCG/KG/MIN Epinephrine 1,000 mcg/ 250 mls @ 138.8 mls/hr 01/20/20 15:00 Dextrose IVPB ASDIR DARIEL Protocol 0.1 MCG/KG/MIN Lactobacillus Acidophilus 1 tab 12/29/19 10:00 01/19/20 09:18 Bacid - PO Not Given DAILY DARIEL Nystatin 1 applic 01/13/20 10:00 01/20/20 11:00 Nystop Powder - TP 1 applic DAILY DARILE Administration Pantoprazole Sodium 40 mg 01/18/20 11:15 01/20/20 10:00 Protonix Iv IVPUSH 40 mg DAILY DARIEL Administration Polyethylene Glycol 17 gm 01/09/20 17:43 01/11/20 11:50 Miralax (For Daily Use) - PO 17 gm Q24H PRN Administration CONSTIPATION Sodium Bicarbonate 50 meq 01/18/20 14:00 01/20/20 10:00 Sodium Bicarbonate 8.4% - IVPUSH 50 meq Q4H-IV DARIEL Administration Zinc Sulfate 220 mg 12/29/19 10:00 01/19/20 09:18 Orazinc - PO Not Given DAILY DARIEL Impression 1. ANJUM 2. s/p cardiac arrest 3. resp failure 4. covid pna 5. obesity 6. hx lymphoma 7. resp acidosis 8. lactic acidosis 9. ards 10. elevated lfts Plan - cont to monitor renal function - cont vent support - renal function worsening - pt is making urine - cont pressors to a map of 65 - vent support - likely atn post arrest - discussed with ICU team - cont ICU care - prognosis guarded
[2020-01-20 17:07] VITALS: BP 66/20; PULSE 140
[2020-01-20] MEDS: ZINC SULFATE 220 MG CAPSULE (FP) PO SCH (19:25)
[2020-01-20] MEDS: LACTOBACILLUS ACIDOPHILUS 1 TABLET PO SCH (19:25)
[2020-01-20] MEDS: CHOLECALCIFEROL (VIT D3) 1,000 UNIT (25 MCG) TABLET PO SCH (19:25)
[2020-01-20] MEDS: FLUDROCORTISONE ACETATE 0.1 MG TABLET (FP) GT SCH (19:25)
[2020-01-20] MEDS: ASCORBIC ACID 500 MG TABLET (FP) PO SCH (19:25)
[2020-01-20] MEDS: HEPARIN - 25,000 UNIT in SODIUM CHLORIDE 495 ML IV SCH (19:26)
[2020-01-20] MEDS: MORPHINE SULFATE/0.9% NACL/PF 100 MG/100 ML BAG IVPB SCH (19:27)
--- NOTE | 2020-01-20 21:22 | PN ---
Progress Note (short form) - Note Progress Note: Pt suffered cardiac arrest around 9 pm. Pt did not achieve ROSC despite several rounds of compressions. See code sheet for details. Family (Rosie) notified at 9:20.
== END 2020-01-20 21:12 | disposition expired | DRG 720 ==
LOC: JER 12:47 → JERBED 15:50 → J6S 12-21 18:20 → JICU 12-22 09:35 → J4S 12-28 15:34 → JICU 01-17 18:29
PROVIDERS: ADMIT Internal Medicine; ATTEND Internal Medicine Pulmonary Disease
PROC: 05HN33Z Insertion of Infusion Device into Left Internal Jugular Vein, Percutaneous Approach (ICD-10-PCS; 2019-12-19)
PROC: 5A09557 Assistance with Respiratory Ventilation, Greater than 96 Consecutive Hours, Continuous Positive Airway Pressure (ICD-10-PCS; 2019-12-24)
PROC: 5A1945Z Respiratory Ventilation, 24-96 Consecutive Hours (ICD-10-PCS; principal; 2020-01-17)
PROC: 0BH17EZ Insertion of Endotracheal Airway into Trachea, Via Natural or Artificial Opening (ICD-10-PCS; 2020-01-17)
PROC: 05HM33Z Insertion of Infusion Device into Right Internal Jugular Vein, Percutaneous Approach (ICD-10-PCS; 2020-01-18)
PROC: B543ZZA Ultrasonography of Right Jugular Veins, Guidance (ICD-10-PCS; 2020-01-18)
PROC: 4A133B1 Monitoring of Arterial Pressure, Peripheral, Percutaneous Approach (ICD-10-PCS; 2020-01-18)
PROC: 4A133J1 Monitoring of Arterial Pulse, Peripheral, Percutaneous Approach (ICD-10-PCS; 2020-01-18)
PROC: 5A12012 Performance of Cardiac Output, Single, Manual (ICD-10-PCS; 2020-01-20)
DX: A41.89 Other specified sepsis (principal); U07.1 COVID-19; J96.01 Acute respiratory failure with hypoxia; R65.21 Severe sepsis with septic shock; J12.89 Other viral pneumonia; Z94.84 Stem cells transplant status; N17.9 Acute kidney failure, unspecified; E83.51 Hypocalcemia; F41.9 Anxiety disorder, unspecified; E66.9 Obesity, unspecified; R74.0 Nonspecific elevation of levels of transaminase and lactic acid dehydrogenase [LDH]; Z68.37 Body mass index [BMI] 37.0-37.9, adult; E86.9 Volume depletion, unspecified; R00.0 Tachycardia, unspecified; Z85.72 Personal history of non-Hodgkin lymphomas; I10 Essential (primary) hypertension
CPT/HCPCS: 36415; 36600; 71045-TC-FY; 76937; 80048; 80053; 80074; 82248; 82550; 82553; 82728; 82803; 82962; 83520; 83605; 83615; 83735; 83880; 84100; 84443; 84484; 84703; 85025; 85027; 85379; 85610; 85730; 86140; 86850; 86900; 86901; 87040; 87070; 87205; 87899; 93005; 93010; 93306-TC; 93308; 93970-TC; 94002; 94660; 99285-25; G0480; J0131; J1644; J2997; J3262; U0002; U0003